=== PATIENT | male | born 1955 | race Two or more races ===

== ENCOUNTER 2019-06-17 05:19 | Inpatient (IN) | payer BC ==
--- OUTSIDE RECORDS SUMMARY | 2019-06-17 05:22 | XMS REPORT | Clinical Summary ---
:1955 Author Organization [facility] Address [address] [place] [address] Care Team Providers Name Role Phone Tesha Alonzo MD Primary Care Provider Allergies No Known Allergies Medications Medication Sig Dispensed Refills Start Date End Date Status allopurinol Take 100 mg by 0 Active (ZYLOPRIM) 100 MG mouth daily. tablet atorvastatin Take 40 mg by 0 Active (LIPITOR) 40 MG mouth daily. tablet insulin ASPART Inject under 0 Active (NovoLOG) 100 unit/mL the skin 3 injection (three) times a day before meals. Sliding scale insulin GLARGINE Inject 50 Units 0 Active (LANTUS) 100 unit/mL under the skin injection (vial) nightly. Sliding scale tamsulosin (FLOMAX) Take 0.4 mg by 0 Active 0.4 mg mouth daily. capsule,extended release 24hr omega-3 acid ethyl Take 2 g by 0 Active esters (LOVAZA) 1 mouth daily. gram capsule Bedtime gabapentin Take 100 mg by 0 Active (NEURONTIN) 100 mg mouth nightly. capsule Take 2 capsules by mouth everyday at bedtime traMADol (ULTRAM) 50 Take 50 mg by 0 Active mg tablet mouth 2 (two) times a day as needed for moderate pain. metoprolol succinate Take 25 mg by 0 Active XL (TOPROL-XL) 25 mg mouth daily. Pt 24 hr tablet takes metoprolol succinate ER 25 mg tab finasteride (PROSCAR) Take 5 mg by 0 Active 5 mg tablet mouth daily. ondansetron (ZOFRAN) Take 1 tablet 20 tablet 0 06/12/2019 07/12/20 Active 8 MG tablet (8 mg total) by 19 mouth every 8 (eight) hours as needed for nausea or vomiting for up to 30 days. prochlorperazine Take 1 tablet 30 tablet 0 06/12/2019 07/12/20 Active (COMPAZINE) 5 MG (5 mg total) by 19 tablet mouth every 6 (six) hours as needed for nausea or vomiting for up to 30 days. famotidine (PEPCID) Take 1 tablet 60 tablet 0 06/15/2019 07/15/20 Active 20 MG tablet (20 mg total) 19 by mouth 2 (two) times a day for 30 days. simethicone (MYLICON) Chew 1 tablet 30 tablet 0 06/15/2019 07/15/20 Active 80 MG chewable tablet (80 mg total) 19 every 6 (six) hours as needed for flatulence for up to 30 days. dexAMETHasone Take 1 tablet 30 tablet 0 06/16/2019 07/16/20 Active (DECADRON) 4 MG (4 mg total) by 19 tablet mouth daily for 30 days. liraglutide (VICTOZA) Inject 1.2 mg 0 06/15/20 Discontinued 0.6 mg/0.1 mL (18 under the skin 19 mg/3 mL) pen injector daily. olmesartan (BENICAR) Take 20 mg by 0 06/15/20 Discontinued 40 MG tablet mouth daily. 19 cetirizine-pseudoepHE Take 1 tablet 0 06/15/20 Discontinued Drine (ZyrTEC-D) by mouth 2 19 5-120 mg per 12 hr (two) times a tablet day. metFORMIN Take 500 mg by 0 06/15/20 Discontinued (GLUCOPHAGE) 500 mg mouth daily. 19 tablet torsemide (DEMADEX) Take 5 mg by 0 06/15/20 Discontinued 10 MG tablet mouth daily. 19 furosemide (LASIX) 20 Take 20 mg by 0 06/15/20 Discontinued mg tablet mouth 2 (two) 19 times a day. Active Problems Problem Noted Date Cholangiocarcinoma 06/10/2019 BECCA (acute kidney injury) 05/27/2019 Encounters Date Type Specialty Care Team Description 06/16/2019 Telephone Oncology Obie Herrera Cholangiocarcinoma (HCC) (Primary Dx) 06/12/2019 Orders Only Oncology Obie Herrera MD 06/11/2019 Orders Only Oncology Briseida Thacker, PharmSwapna 05/27/2019 - Hospital Encounter Oncology Shawn Kessler (HCC) ( Primary Dx); 06/15/2019 MD Franki BECCA (acute kidney injury) ([facility]) 05/27/2019 Orders Only General Internal [facility], Medicine MD Franki 01/07/2019 Hospital Encounter Radiology Craig, Cough David Ortega MD 01/07/2019 Transcribe Orders Access Craig Cough (Primary Dx) David Ortega MD 06/18/2018 Lab Lab David Srinivasan MD after 06/16/2018 Social History Tobacco Use Types Packs/Day Years Used Date Never Smoker Smokeless Tobacco: Never Used Alcohol Use Drinks/Week oz/Week Comments Never Alcohol Habits Answer Date Recorded How often do you have a drink containing alcohol? Never 05/27/2019 How many drinks containing alcohol do you have on a typical Not asked day when you are drinking? How often do you have six or more drinks on one occasion? Not asked Sex Assigned at Date Recorded Not on file Job Start Date Occupation Industry Not on file Not on file Not on file Travel History Travel Start Travel End No recent travel history available. Last Filed Vital Signs Vital Sign Reading Time Taken Blood Pressure 139/74 06/15/2019 2:29 PM CDT Pulse 68 06/15/2019 2:29 PM CDT Temperature 35.2 C (95.4 F) 06/15/2019 11:52 AM CDT Respiratory Rate 18 06/15/2019 11:52 AM CDT Oxygen Saturation 99% 06/15/2019 2:13 PM CDT Inhaled Oxygen Concentration - - Weight 82.4 kg (181 lb 11.2 oz) 06/10/2019 8:54 AM CDT Height 177.8 cm (5' 10") 06/02/2019 3:00 PM CDT Body Mass Index 26.07 06/02/2019 3:00 PM CDT Plan of Treatment Date Type Specialty Care Team Description 06/25/2019 Infusion Oncology Obie Herrera MD [address] [address] 06/25/2019 Office Visit Oncology Obie Herrera MD [address] [address] 06/26/2019 Office Visit General Surgery Nieves, April Jessica MD [address] [facility] [address] [place] [phone] 06/27/2019 Nurse Only Oncology Obie Herrera MD [address] [facility] [address] [place] [address] 07/09/2019 Infusion Oncology Obie Herrera MD [facility] [address] [facility] [address] [place] [phone] 07/11/2019 Nurse Only Oncology Obie Herrera MD [facility] [address] [facility] [address] [place] [address] 07/23/2019 Infusion Oncology Obie Herrera MD [facility] [address] [facility] [address] [place] [address] 07/25/2019 Nurse Only Oncology Obie Herrera MD [facility] [address] [facility] [address] [place] [phone] 08/06/2019 Infusion Oncology Obie Herrera MD [facility] [address] [facility] [address] [place] [address] 08/08/2019 Nurse Only Oncology Obie Herrera MD [facility] [address] [facility] [address] [place] [phone] 08/20/2019 Infusion Oncology Obie Herrera MD [facility] [address] [facility] [address] [place] [phone] 08/22/2019 Nurse Only Oncology Obie Herrera MD [facility] [place] [facility] [address] [place] [phone] Health Maintenance Due Date Last Done Comments COLONOSCOPY SCREENING 2005 SHINGLES VACCINES (#1) 2005 INFLUENZA VACCINE 06/19/2019 10/18/2018 Procedures Procedure Name Priority Date/Time Associated Diagnosis Comments POC GLUCOSE Routine 06/15/2019 12:29 Results for PM CDT this procedure are in the results section. POC GLUCOSE Routine 06/15/2019 8:00 Results for AM CDT this procedure are in the results section. ESTIMATED GFR Routine 06/15/2019 5:00 Results for AM CDT this procedure are in the results section. BASIC METABOLIC PANEL Routine 06/15/2019 5:00 Results for AM CDT this procedure are in the results section. HC COMPLETE BLD COUNT Routine 06/15/2019 5:00 Results for W/AUTO DIFF AM CDT this procedure are in the results section. POC GLUCOSE Routine 06/14/2019 9:38 Results for PM CDT this procedure are in the results section. POC GLUCOSE Routine 06/14/2019 9:08 Results for PM CDT this procedure are in the results section. POC GLUCOSE Routine 06/14/2019 6:03 Results for PM CDT this procedure are in the results section. POC GLUCOSE Routine 06/14/2019 8:16 Results for AM CDT this procedure are in the results section. ESTIMATED GFR Routine 06/14/2019 4:30 Results for AM CDT this procedure are in the results section. MAGNESIUM LEVEL Routine 06/14/2019 4:30 Results for AM CDT this procedure are in the results section. HC COMPLETE BLD COUNT Routine 06/14/2019 4:30 Results for W/AUTO DIFF AM CDT this procedure are in the results section. BASIC METABOLIC PANEL Routine 06/14/2019 4:30 Results for AM CDT this procedure are in the results section. POC GLUCOSE Routine 06/13/2019 9:52 Results for PM CDT this procedure are in the results section. POC GLUCOSE Routine 06/13/2019 5:53 Results for PM CDT this procedure are in the results section. POC GLUCOSE Routine 06/13/2019 12:19 Results for PM CDT this procedure are in the results section. POC GLUCOSE Routine 06/13/2019 8:13 Results for AM CDT this procedure are in the results section. ESTIMATED GFR Routine 06/13/2019 5:30 Results for AM CDT this procedure are in the results section. COMPREHENSIVE Routine 06/13/2019 5:30 Results for METABOLIC PANEL AM CDT this procedure are in the results section. HC COMPLETE BLD COUNT Routine 06/13/2019 5:30 Results for W/AUTO DIFF AM CDT this procedure are in the results section. POC GLUCOSE Routine 06/12/2019 9:26 Results for PM CDT this procedure are in the results section. POC GLUCOSE Routine 06/12/2019 5:11 Results for PM CDT this procedure are in the results section. POC GLUCOSE Routine 06/12/2019 12:17 Results for PM CDT this procedure are in the results section. ESTIMATED GFR Routine 06/12/2019 5:30 Results for AM CDT this procedure are in the results section. BASIC METABOLIC PANEL Routine 06/12/2019 5:30 Results for AM CDT this procedure are in the results section. HC COMPLETE BLD COUNT Routine 06/12/2019 5:30 Results for W/AUTO DIFF AM CDT this procedure are in the results section. POC GLUCOSE Routine 06/11/2019 9:01 Results for PM CDT this procedure are in the results section. URINALYSIS, AUTOMATED Routine 06/11/2019 8:41 Results for WITH MICROSCOPY PM CDT this procedure are in the results section. ESTIMATED GFR Routine 06/11/2019 5:50 Results for PM CDT this procedure are in the results section. MAGNESIUM LEVEL Routine 06/11/2019 5:50 Cholangiocarcinoma (HCC) Results for PM CDT this procedure are in the results section. COMPREHENSIVE Routine 06/11/2019 5:50 Cholangiocarcinoma (HCC) Results for METABOLIC PANEL PM CDT this procedure are in the results section. POC GLUCOSE Routine 06/11/2019 4:59 Results for PM CDT this procedure are in the results section. US ABDOMINAL Routine 06/11/2019 3:46 Results for PARACENTESIS IMAGING PM CDT this procedure are in the results section. CELL COUNT AND Routine 06/11/2019 3:18 Results for DIFFERENTIAL, BODY PM CDT this procedure FLUID are in the results section. POC GLUCOSE Routine 06/11/2019 1:36 Results for PM CDT this procedure are in the results section. POC GLUCOSE Routine 06/11/2019 8:00 Results for AM CDT this procedure are in the results section. TYPE AND SCREEN Routine 06/11/2019 4:36 Results for AM CDT this procedure are in the results section. ESTIMATED GFR Routine 06/11/2019 4:36 Results for AM CDT this procedure are in the results section. BASIC METABOLIC PANEL Routine 06/11/2019 4:36 Results for AM CDT this procedure are in the results section. HC COMPLETE BLD COUNT Routine 06/11/2019 4:36 Results for W/AUTO DIFF AM CDT this procedure are in the results section. POC GLUCOSE Routine 06/10/2019 9:03 Results for PM CDT this procedure are in the results section. POC GLUCOSE Routine 06/10/2019 5:39 Results for PM CDT this procedure are in the results section. POC GLUCOSE Routine 06/10/2019 12:41 Results for PM CDT this procedure are in the results section. POC GLUCOSE Routine 06/10/2019 8:18 Results for AM CDT this procedure are in the results section. ESTIMATED GFR Routine 06/10/2019 4:59 Results for AM CDT this procedure are in the results section. BASIC METABOLIC PANEL Routine 06/10/2019 4:59 Results for AM CDT this procedure are in the results section. HC COMPLETE BLD COUNT Routine 06/10/2019 4:59 Results for W/AUTO DIFF AM CDT this procedure are in the results section. POC GLUCOSE Routine 06/09/2019 8:55 Results for PM CDT this procedure are in the results section. POC GLUCOSE Routine 06/09/2019 6:03 Results for PM CDT this procedure are in the results section. POC GLUCOSE Routine 06/09/2019 12:26 Results for PM CDT this procedure are in the results section. POC GLUCOSE Routine 06/09/2019 8:36 Results for AM CDT this procedure are in the results section. ESTIMATED GFR Routine 06/09/2019 4:25 Results for AM CDT this procedure are in the results section. COMPREHENSIVE Routine 06/09/2019 4:25 Results for METABOLIC PANEL AM CDT this procedure are in the results section. HC COMPLETE BLD COUNT Routine 06/09/2019 4:25 Results for W/AUTO DIFF AM CDT this procedure are in the results section. POC GLUCOSE Routine 06/08/2019 8:18 Results for PM CDT this procedure are in the results section. POC GLUCOSE Routine 06/08/2019 4:39 Results for PM CDT this procedure are in the results section. URINE CULTURE Routine 06/08/2019 1:12 Results for PM CDT this procedure are in the results section. GRAM STAIN Routine 06/08/2019 1:12 Results for PM CDT this procedure are in the results section. URINALYSIS SCREEN AND Routine 06/08/2019 12:25 Results for MICROSCOPY, WITH PM CDT this procedure REFLEX TO CULTURE are in the results section. POC GLUCOSE Routine 06/08/2019 12:01 Results for PM CDT this procedure are in the results section. POC GLUCOSE Routine 06/08/2019 7:36 Results for AM CDT this procedure are in the results section. HC COMPLETE BLD COUNT Routine 06/08/2019 5:15 Results for W/AUTO DIFF AM CDT this procedure are in the results section. ESTIMATED GFR Routine 06/08/2019 4:00 Results for AM CDT this procedure are in the results section. BASIC METABOLIC PANEL Routine 06/08/2019 4:00 Results for AM CDT this procedure are in the results section. POC GLUCOSE Routine 06/07/2019 8:55 Results for PM CDT this procedure are in the results section. POC GLUCOSE Routine 06/07/2019 5:53 Results for PM CDT this procedure are in the results section. US ABDOMINAL STAT 06/07/2019 3:07 Results for PARACENTESIS IMAGING PM CDT this procedure are in the results section. POC GLUCOSE Routine 06/07/2019 12:36 Results for PM CDT this procedure are in the results section. POC GLUCOSE Routine 06/07/2019 7:40 Results for AM CDT this procedure are in the results section. ESTIMATED GFR Routine 06/07/2019 5:00 Results for AM CDT this procedure are in the results section. HC COMPLETE BLD COUNT Routine 06/07/2019 5:00 Results for W/AUTO DIFF AM CDT this procedure are in the results section. BASIC METABOLIC PANEL Routine 06/07/2019 5:00 Results for AM CDT this procedure are in the results section. POC GLUCOSE Routine 06/06/2019 10:11 Results for PM CDT this procedure are in the results section. POC GLUCOSE Routine 06/06/2019 4:58 Results for PM CDT this procedure are in the results section. POC GLUCOSE Routine 06/06/2019 11:48 Results for AM CDT this procedure are in the results section. POC GLUCOSE Routine 06/06/2019 7:59 Results for AM CDT this procedure are in the results section. ESTIMATED GFR Routine 06/06/2019 4:00 Results for AM CDT this procedure are in the results section. BASIC METABOLIC PANEL Routine 06/06/2019 4:00 Results for AM CDT this procedure are in the results section. POC GLUCOSE Routine 06/05/2019 8:57 Results for PM CDT this procedure are in the results section. POC GLUCOSE Routine 06/05/2019 3:57 Results for PM CDT this procedure are in the results section. POC GLUCOSE Routine 06/05/2019 1:27 Results for PM CDT this procedure are in the results section. ESTIMATED GFR Routine 06/05/2019 11:26 Results for AM CDT this procedure are in the results section. BASIC METABOLIC PANEL Routine 06/05/2019 11:26 Results for AM CDT this procedure are in the results section. POC GLUCOSE Routine 06/05/2019 7:07 Results for AM CDT this procedure are in the results section. POC GLUCOSE Routine 06/04/2019 9:02 Results for PM CDT this procedure are in the results section. POC GLUCOSE Routine 06/04/2019 4:35 Results for PM CDT this procedure are in the results section. POC GLUCOSE Routine 06/04/2019 12:18 Results for PM CDT this procedure are in the results section. POC GLUCOSE Routine 06/04/2019 7:20 Results for AM CDT this procedure are in the results section. HC COMPLETE BLD COUNT Routine 06/04/2019 4:50 Results for W/AUTO DIFF AM CDT this procedure are in the results section. ESTIMATED GFR Routine 06/04/2019 4:42 Results for AM CDT this procedure are in the results section. BASIC METABOLIC PANEL Routine 06/04/2019 4:42 Results for AM CDT this procedure are in the results section. POC GLUCOSE Routine 06/03/2019 11:10 Results for PM CDT this procedure are in the results section. POC GLUCOSE Routine 06/03/2019 10:07 Results for PM CDT this procedure are in the results section. POC GLUCOSE Routine 06/03/2019 4:32 Results for PM CDT this procedure are in the results section. POC GLUCOSE Routine 06/03/2019 11:33 Results for AM CDT this procedure are in the results section. POC GLUCOSE Routine 06/03/2019 8:46 Results for AM CDT this procedure are in the results section. CBC WITH PLATELET AND Routine 06/03/2019 4:35 Results for DIFFERENTIAL AM CDT this procedure are in the results section. ESTIMATED GFR Routine 06/03/2019 4:00 Results for AM CDT this procedure are in the results section. BASIC METABOLIC PANEL Routine 06/03/2019 4:00 Results for AM CDT this procedure are in the results section. POC GLUCOSE Routine 06/02/2019 8:09 Results for PM CDT this procedure are in the results section. POC GLUCOSE Routine 06/02/2019 4:55 Results for PM CDT this procedure are in the results section. POC GLUCOSE Routine 06/02/2019 12:36 Results for PM CDT this procedure are in the results section. US ABDOMINAL Routine 06/02/2019 12:32 Results for PARACENTESIS IMAGING PM CDT this procedure are in the results section. POC GLUCOSE Routine 06/02/2019 10:35 Results for AM CDT this procedure are in the results section. POC GLUCOSE Routine 06/02/2019 8:02 Results for AM CDT this procedure are in the results section. HC COMPLETE BLD COUNT Routine 06/02/2019 6:00 Results for W/AUTO DIFF AM CDT this procedure are in the results section. ESTIMATED GFR Routine 06/02/2019 4:00 Results for AM CDT this procedure are in the results section. BASIC METABOLIC PANEL Routine 06/02/2019 4:00 Results for AM CDT this procedure are in the results section. POC GLUCOSE Routine 06/01/2019 10:05 Results for PM CDT this procedure are in the results section. POC GLUCOSE Routine 06/01/2019 5:32 Results for PM CDT this procedure are in the results section. NM LUNG VENTILATION Routine 06/01/2019 3:47 Results for PERFUSION PM CDT this procedure are in the results section. POC GLUCOSE Routine 06/01/2019 11:02 Results for AM CDT this procedure are in the results section. POC GLUCOSE Routine 06/01/2019 7:24 Results for AM CDT this procedure are in the results section. HC COMPLETE BLD COUNT Routine 06/01/2019 4:15 Results for W/AUTO DIFF AM CDT this procedure are in the results section. ESTIMATED GFR Routine 06/01/2019 4:00 Results for AM CDT this procedure are in the results section. BASIC METABOLIC PANEL Routine 06/01/2019 4:00 Results for AM CDT this procedure are in the results section. POC GLUCOSE Routine 05/31/2019 8:38 Results for PM CDT this procedure are in the results section. POC GLUCOSE Routine 05/31/2019 5:28 Results for PM CDT this procedure are in the results section. POC GLUCOSE Routine 05/31/2019 1:29 Results for PM CDT this procedure are in the results section. US DUPLEX VENOUS Routine 05/31/2019 12:15 Results for LOWER EXTREMITY PM CDT this procedure BILATERAL are in the results section. POC GLUCOSE Routine 05/31/2019 7:58 Results for AM CDT this procedure are in the results section. HC COMPLETE BLD COUNT Routine 05/31/2019 5:10 Results for W/AUTO DIFF AM CDT this procedure are in the results section. ESTIMATED GFR Routine 05/31/2019 4:00 Results for AM CDT this procedure are in the results section. COMPREHENSIVE Routine 05/31/2019 4:00 Results for METABOLIC PANEL AM CDT this procedure are in the results section. POC GLUCOSE Routine 05/30/2019 8:40 Results for PM CDT this procedure are in the results section. LACTIC ACID LEVEL, Timed 05/30/2019 4:54 Results for SEPSIS - NOW AND PM CDT this procedure REPEAT 2X EVERY 3 are in the HOURS results section. POC GLUCOSE Routine 05/30/2019 4:49 Results for PM CDT this procedure are in the results section. LACTIC ACID LEVEL, Timed 05/30/2019 1:54 Results for SEPSIS - NOW AND PM CDT this procedure REPEAT 2X EVERY 3 are in the HOURS results section. POC GLUCOSE Routine 05/30/2019 12:17 Results for PM CDT this procedure are in the results section. ECHOCARDIOGRAM 2D STAT 05/30/2019 11:45 Results for COMPLETE W MMODE AM CDT this procedure SPECTRAL COLOR are in the DOPPLER ([id number]) results section. LACTIC ACID LEVEL, Timed 05/30/2019 11:40 Results for SEPSIS - NOW AND AM CDT this procedure REPEAT 2X EVERY 3 are in the HOURS results section. XR CHEST 1 VW STAT 05/30/2019 9:10 Results for PORTABLE AM CDT this procedure are in the results section. PROTHROMBIN TIME WITH STAT 05/30/2019 8:20 Results for INR AM CDT this procedure are in the results section. LACTIC ACID LEVEL STAT 05/30/2019 8:20 Results for AM CDT this procedure are in the results section. TROPONIN STAT 05/30/2019 8:20 Results for AM CDT this procedure are in the results section. ESTIMATED GFR STAT 05/30/2019 8:20 Results for AM CDT this procedure are in the results section. HC COMPLETE BLD COUNT STAT 05/30/2019 8:20 Results for W/AUTO DIFF AM CDT this procedure are in the results section. MAGNESIUM LEVEL STAT 05/30/2019 8:20 Results for AM CDT this procedure are in the results section. BASIC METABOLIC PANEL STAT 05/30/2019 8:20 Results for AM CDT this procedure are in the results section. ECG 12-LEAD STAT 05/30/2019 8:14 Results for AM CDT this procedure are in the results section. POC GLUCOSE Routine 05/30/2019 7:58 Results for AM CDT this procedure are in the results section. ESTIMATED GFR Routine 05/30/2019 4:30 Results for AM CDT this procedure are in the results section. BASIC METABOLIC PANEL Routine 05/30/2019 4:30 Results for AM CDT this procedure are in the results section. HC COMPLETE BLD COUNT Routine 05/30/2019 4:30 Results for W/AUTO DIFF AM CDT this procedure are in the results section. POC GLUCOSE Routine 05/29/2019 9:18 Results for PM CDT this procedure are in the results section. POC GLUCOSE Routine 05/29/2019 5:09 Results for PM CDT this procedure are in the results section. POC GLUCOSE Routine 05/29/2019 12:24 Results for PM CDT this procedure are in the results section. ESTIMATED GFR Routine 05/29/2019 11:13 Results for AM CDT this procedure are in the results section. BASIC METABOLIC PANEL Routine 05/29/2019 11:13 Results for AM CDT this procedure are in the results section. HC COMPLETE BLD COUNT Routine 05/29/2019 11:00 Results for W/AUTO DIFF AM CDT this procedure are in the results section. POC GLUCOSE Routine 05/29/2019 9:19 Results for AM CDT this procedure are in the results section. POC GLUCOSE Routine 05/28/2019 9:50 Results for PM CDT this procedure are in the results section. POC GLUCOSE Routine 05/28/2019 4:22 Results for PM CDT this procedure are in the results section. US ABDOMINAL Routine 05/28/2019 3:00 Results for PARACENTESIS IMAGING PM CDT this procedure are in the results section. POC GLUCOSE Routine 05/28/2019 11:54 Results for AM CDT this procedure are in the results section. SEDIMENTATION RATE Routine 05/28/2019 10:55 Results for AM CDT this procedure are in the results section. SODIUM LEVEL, URINE, Routine 05/28/2019 9:54 Results for RANDOM AM CDT this procedure are in the results section. CREATININE LEVEL, Routine 05/28/2019 9:54 Results for URINE, RANDOM AM CDT this procedure are in the results section. URINALYSIS SCREEN AND Routine 05/28/2019 9:54 Results for MICROSCOPY, WITH AM CDT this procedure REFLEX TO CULTURE are in the results section. URINE CULTURE Routine 05/28/2019 9:54 Results for AM CDT this procedure are in the results section. US RENAL STAT 05/28/2019 9:11 Results for AM CDT this procedure are in the results section. POC GLUCOSE Routine 05/28/2019 8:23 Results for AM CDT this procedure are in the results section. POC GLUCOSE Routine 05/28/2019 12:08 Results for AM CDT this procedure are in the results section. BLOOD CULTURE, Routine 05/27/2019 11:55 Results for AEROBIC & ANAEROBIC PM CDT this procedure are in the results section. PROTHROMBIN TIME WITH Routine 05/27/2019 11:25 Results for INR PM CDT this procedure are in the results section. HEMOGLOBIN A1C Routine 05/27/2019 11:25 Results for PM CDT this procedure are in the results section. HC COMPLETE BLD COUNT Routine 05/27/2019 11:25 Results for W/AUTO DIFF PM CDT this procedure are in the results section. B NATRIURETIC PEPTIDE Routine 05/27/2019 11:25 Results for PM CDT this procedure are in the results section. BLOOD CULTURE, Routine 05/27/2019 11:25 Results for AEROBIC & ANAEROBIC PM CDT this procedure are in the results section. ESTIMATED GFR Routine 05/27/2019 9:50 Results for PM CDT this procedure are in the results section. BILIRUBIN DIRECT Routine 05/27/2019 9:50 Results for PM CDT this procedure are in the results section. URIC ACID LEVEL Routine 05/27/2019 9:50 Results for PM CDT this procedure are in the results section. THYROID STIMULATING Routine 05/27/2019 9:50 Results for HORMONE PM CDT this procedure are in the results section. T4, FREE Routine 05/27/2019 9:50 Results for PM CDT this procedure are in the results section. PREALBUMIN LEVEL Routine 05/27/2019 9:50 Results for PM CDT this procedure are in the results section. MAGNESIUM LEVEL Routine 05/27/2019 9:50 Results for PM CDT this procedure are in the results section. LIPASE LEVEL Routine 05/27/2019 9:50 Results for PM CDT this procedure are in the results section. LACTIC ACID LEVEL Routine 05/27/2019 9:50 Results for PM CDT this procedure are in the results section. CREATINE KINASE, Routine 05/27/2019 9:50 Results for TOTAL (CPK) PM CDT this procedure are in the results section. COMPREHENSIVE Routine 05/27/2019 9:50 Results for METABOLIC PANEL PM CDT this procedure are in the results section. 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 after 06/16/2018 Results POC glucose (06/15/2019 12:29 PM CDT)Only the most recent of76 resultswithin the time period is included. [facility] POC glucose 184 (H) 65 - 99 mg/dL [facility] Comment: [facility]PITAL [facility] Notified RN Meter ID: [id number] Prefitter Doors: Brooks Ryann Specimen Performing Organization Address [facility] Hospitalcode Phone Number [facility] DEPARTMENT OF PATHOLOGY AND [address] [place] [address] Estimated GFR (06/15/2019 5:00 AM CDT)Only the most recent of21 resultswithin the time period is included. [facility] Estimated GFR 48 (A) mL/min/1.73 [facility] Comment: [address] CatergoryUnitsInterpretation G1 >=90 Normal or high G2 60-89Mildly decreased [id number] to moderately decreased [id number] to severely decreased G4 15-29Severely decreased G5 <15Kidney failure The eGFR was calculated using the Chronic Kidney Disease Epidemiology Collaboration (CKD-EPI) equation. Interpretation is based on recommendations of the National Kidney Foundation-Kidney Disease Outcomes Quality Initiative (NKF-KDOQI) published in 2014. Specimen Plasma specimen Performing Organization Address City/[facility]/Zipcode Phone Number [facility] DEPARTMENT OF PATHOLOGY AND [address] [place] [phone] [place] [phone] CBC with platelet and differential (06/15/2019 5:00 AM CDT)Only the most recent of18 resultswithin the time period is included. [facility] WBC 14.51 (H) 4.50 - 11.00 [facility] k/uL [facility] RBC 4.68 4.40 - 6.00 [facility] m/uL [facility] HGB 12.5 (L) 14.0 - 18.0 [facility] g/dL HOSPITAL HCT 39.2 (L) 41.0 - 51.0 % [facility] MCV 83.8 82.0 - 100.0 [facility] MCH 26.7 (L) 27.0 - 34.0 pg [facility] MCHC 31.9 31.0 - 37.0 [facility] g/dL [facility] RDW - SD 50.5 37.0 - 55.0 fL [facility] MPV 9.7 8.8 - 13.2 fL [facility] Platelet count 521 (H) 150 - 400 k/uL [facility] Nucleated RBC 0.00 /100 WBC [facility] Neutrophils 96.9 (H) 39.0 - 69.0 % [facility] Lymphocytes 2.0 (L) 25.0 - 45.0 % [facility] Monocytes 0.7 0.0 - 10.0 % [facility] Eosinophils 0.0 0.0 - 5.0 % [facility] Basophils 0.1 0.0 - 1.0 % [facility] Immature granulocytes 0.3Comment: 0.0 - 1.0 % [facility] "[facility] granulocytes" (promyelocytes , myelocytes, metamyelocytes ) Specimen Blood Performing Organization Address City/[facility]/Zipcode Phone Number [facility] DEPARTMENT OF PATHOLOGY AND [address] [place] [address] GENOM[facility] MEDICINE [address] [address] Basic metabolic panel (06/15/2019 5:00 AM CDT)Only the most recent of16 resultswithin the time period is included. Sodium 134 (L) 135 - 148 mEq/L [facility] Potassium 5.0 3.5 - 5.0 mEq/L [facility] Chloride 100 98 - 112 mEq/L [facility] CO2 21 (L) 24 - 31 mEq/L [facility] Anion gap 13@ANIO 7 - 15 mEq/L [facility] BUN 52 (H) 8 - 23 mg/dL [facility] Creatinine 1.51 (H) 0.70 - 1.20 mg/dL [facility] Glucose 159 (H) 65 - 99 mg/dL [facility] Calcium 7.9 (L) 8.8 - 10.2 mg/dL [facility] Specimen Plasma specimen Performing Organization Address City/State/[facility] Hospitalcode Phone Number [facility] DEPARTMENT OF PATHOLOGY AND [address] [place] [address] [facility] [address] [place] [address] Magnesium level (06/14/2019 4:30 AM CDT)Only the most recent of4 resultswithin the time period is included. Magnesium 3.1 (H) 1.6 - 2.4 mg/dL [facility] Specimen Plasma specimen Performing Organization Address City/[facility]/Zipcode Phone Number [facility] DEPARTMENT OF PATHOLOGY AND [address] [place] [address] [facility] [address] [place] [phone] Comprehensive metabolic panel (06/13/2019 5:30 AM CDT)Only the most recent of5 resultswithin the time period is included. Sodium 135 135 - 148 [facility] mEq/L [facility] Potassium 4.5 3.5 - 5.0 [facility] mEq/L [facility] Chloride 97 (L) 98 - 112 mEq/L [facility] CO2 26 24 - 31 mEq/L [facility] Anion gap 12@ANIO 7 - 15 mEq/L [facility] BUN 57 (H) 8 - 23 mg/dL [facility] Creatinine 1.52 (H) 0.70 - 1.20 [facility] mg/dL [facility] Glucose 180 (H) 65 - 99 mg/dL [facility] Calcium 8.1 (L) 8.8 - 10.2 [facility] mg/dL [facility] Protein 5.7 (L) 6.3 - 8.3 g/dL [facility] Comment: HOSPITAL 4.6-7.0 g/dL 1 week 4.4-7.6 g/dL 7 months-1year5.1-7.3 g/dL 1-2 years5.6-7.5 g/dL >3 years6.0-8.0 g/dL 18-150 6.3-8.3 g/dL Albumin 2.8 (L) 3.5 - 5.0 g/dL [facility] A/G ratio 1.0 0.7 - 3.8 [facility] Alkaline phosphatase 143 (H) 40 - 129 U/L [facility] AST 35 10 - 50 U/L [facility] ALT 37 5 - 50 U/L [facility] Total bilirubin 0.4 0.0 - 1.2 [facility] mg/dL HOSPITAL Specimen Plasma specimen Performing Organization Address City/[facility]code Phone Number [facility] DEPARTMENT OF PATHOLOGY AND [address] [place] [address] Urinalysis, automated with microscopy (06/11/2019 8:41 PM CDT) Color, UA Red [facility] Appearance, UA Cloudy [facility] Specific gravity, UA 1.017 1.001 - 1.035 [facility] pH, UA 5.0 5.0 - 8.5 [facility] Protein, UA Negative Negative [facility] Glucose, UA Negative Negative [facility] Ketones, UA Negative Negative [facility] Bilirubin, UA Negative Negative [facility] Blood, UA Large (A) Negative [facility] Nitrite, UA Negative Negative [facility] Urobilinogen, UA <2.0 <2.0 [facility] Leukocyte esterase, Large (A) Negative [facility] WBC, UA 45 (H) 0 - 1 /HPF [facility] RBC, UA 19 (H) 0 - 5 /HPF [facility] Bacteria, UA Few None seen [facility] WBC clumps, UA Few (A) [facility] Yeast, UA None seen [facility] Yeast with None seen [facility] pseudohyphae, HOSPITAL Specimen Urine Performing Organization Address City/[facility]code Phone Number [facility] DEPARTMENT OF PATHOLOGY AND [address] [place] [address] US Abdominal Paracentesis Imaging (06/11/2019 3:46 PM CDT)Only the most recent of4 resultswithin the time period is included. Specimen Narrative Performed At [facility] Performing Radiologist: Aleshia Rodriguez PA-C Assistants: None Pre Procedure Diagnosis: ASCITES Post Procedure Diagnosis: ASCITES Indication: Ascites Complications: No immediate post procedure complications. IMPRESSION: 1.Technically successful ultrasound-guided diagnostic/therapeutic paracentesis. 2.There is a moderate simple ascites. 3.No residual ascites is seen on postprocedure ultrasound. PLAN: The patient will be monitored in the recovery area for approximately 30 minutes to evaluate vital signs and blood pressure. PROCEDURE SUMMARY: Access of the peritoneal space using ultrasound guidance PROCEDURE DETAILS: Pre-procedure: Comparison studies: None Written and informed consent for the procedure and monitored conscious sedation was obtained from the patient. Prophylactic antibiotics: None Preparation: The left lower quadrant of the abdomen was prepared and draped using all elements of maximal sterile barrier technique including sterile gloves, sterile gown, catheter, mask, large sterile sheet, sterile ultrasound probe cover, hand hygiene and cutaneous antisepsis using chlorhexidine. Anesthesia/Sedation: Level of anesthesia: None (Lidocaine only) Medications used: 1% lidocaine Duration of anesthesia/sedation: N/A Access: Local anesthesia was administered. The left lower quadrantwas evaluated with preprocedure ultrasound. Real-time ultrasound was used to visualize needle entry into the peritoneal space. Access technique: One-step Catheter Paracentesis: Fluid Color: Yellow Volume Removed: 3800 mL Fluid Analysis: The fluid was sent for laboratory tests ordered by the primary team Closure: The One-step catheter was removed and hemostasis was achieved with manual compression. A sterile dressing was applied. Additional details: Estimated blood loss: Less than 10 cc [facility]-[id number] Procedure Note [facility], Radiology Results Incoming - 06/12/2019 2:54 PM CDT PROCEDURE: Ultrasound-guided paracentesis Performing Radiologist: Aleshia Rodriguez PA-C Assistants: None Pre Procedure Diagnosis: ASCITES Post Procedure Diagnosis: ASCITES Indication: Ascites Complications: No immediate post procedure complications. IMPRESSION: 1. Technically successful ultrasound-guided diagnostic/therapeutic paracentesis. 2. There is a moderate simple ascites. 3. No residual ascites is seen on postprocedure ultrasound. PLAN: The patient will be monitored in the recovery area for approximately 30 minutes to evaluate vital signs and blood pressure. PROCEDURE SUMMARY: Access of the peritoneal space using ultrasound guidance PROCEDURE DETAILS: Pre-procedure: Comparison studies: None Written and informed consent for the procedure and monitored conscious sedation was obtained from the patient. Prophylactic antibiotics: None Preparation: The left lower quadrant of the abdomen was prepared and draped using all elements of maximal sterile barrier technique including sterile gloves , sterile gown, catheter, mask, large sterile sheet, sterile ultrasound probe cover, hand hygiene and cutaneous antisepsis using chlorhexidine. Anesthesia/Sedation: Level of anesthesia: None (Lidocaine only) Medications used: 1% lidocaine Duration of anesthesia/sedation: N/A Access: Local anesthesia was administered. The left lower quadrant was evaluated with preprocedure ultrasound. Real-time ultrasound was used to visualize needle entry into the peritoneal space. Access technique: One-step Catheter Paracentesis: Fluid Color: Yellow Volume Removed: 3800 mL Fluid Analysis: The fluid was sent for laboratory tests ordered by the primary team Closure: The One-step catheter was removed and hemostasis was achieved with manual compression. A sterile dressing was applied. Additional details: Estimated blood loss: Less than 10 cc [facility]-[id number] [facility] Organization Address City/State/[facility] Hospitalcoct Phone Number [facility] [address] [place] [address] Cell count and differential, body fluid (06/11/2019 3:18 PM CDT) Misc fluid type Ascitic [facility] Color, fluid Yellow [facility] Appearance, fluid Clear [facility] RBC, fluid SEE /CMM [facility] COMMENTComment: HOSPITAL 2+ (500 - 10,000 RBC/CMM) Nucleated cells, 303 /CMM [facility] Fluid mononuclear See Diff [facility] Lymphocytes, fluid 51 % [facility] Mesothelial cells, 27 % [facility] Macrophages, fluid 22 % [facility] Specimen Fluid Performing Organization Address [facility] Hospitalcode Phone Number [facility] DEPARTMENT OF PATHOLOGY AND [address] [place] [phone] Type and screen (06/11/2019 4:36 AM CDT) Pathologist [facility] ABO grouping AB [facility] Rh type POS [facility] Antibody screen (gel) NEG [facility] Specimen Blood Performing Organization Address [facility] [place] Phone Number [facility] DEPARTMENT OF PATHOLOGY AND [address] [place] [phone] Gram stain (06/08/2019 1:12 PM CDT) Pathologist [facility] Gram stain result Rare WBC's [facility] Gram positive rods HOSPITAL Comment: Specimen Information Specimen Source: Urine Specimen Site: Lao Specimen Urine - Lao Performing Organization Address City/[facility] Hospitalcoct Phone Number [facility] DEPARTMENT OF PATHOLOGY AND [address] [place] [address] Urine culture (06/08/2019 1:12 PM CDT)Only the most recent of2 resultswithin the time period is included. Urine culture Mixed talat <=10-3 col/cc [facility] Comment: HOSPITAL Specimen Information Specimen Source: Urine Specimen Site: Lao Specimen Urine - Lao Performing Organization Address City/[facility]/Zipcode Phone Number [facility] DEPARTMENT OF PATHOLOGY AND [address] [address] Urinalysis screen and microscopy, with reflex to culture (06/08/2019 12:25 PM CDT)Only the most recent of2 resultswithin the time period is included. Specimen site Lao [facility] Color, UA Mary Ann [facility] Appearance, UA Cloudy [facility] Specific gravity, 1.017 1.001 - 1.035 [facility] pH, UA 5.0 5.0 - 8.5 [facility] Protein, UA Negative Negative [facility] Glucose, UA Negative Negative [facility] Ketones, UA Trace (A) Negative [facility] Bilirubin, UA Negative Negative [facility] Blood, UA Large (A) Negative [facility] Nitrite, UA Negative Negative [facility] Urobilinogen, UA <2.0 <2.0 [facility] Leukocyte esterase, Large (A) Negative [facility] WBC, UA 79 (H) 0 - 1 /HPF [facility] RBC, UA 70 (H) 0 - 5 /HPF [facility] Bacteria, UA Moderate (A) None seen [facility] WBC clumps, UA Few (A) [facility] Yeast, UA None seen [facility] Yeast with None seen [facility] pseudohyphae, [facility] Granular casts, UA 2 (H) 0 - 1 /LPF [facility] Hyaline casts, UA >20 (A) /LPF [facility] Specimen Urine Performing Organization Address City/State/Zipcode Phone Number [facility] DEPARTMENT OF PATHOLOGY AND [address] [place] [address] [place] Lung Ventilation Perfusion (06/01/2019 3:47 PM CDT) Specimen Narrative Performed At PROCEDURE: NM LUNG VENTILATION PERFUSION [facility] INDICATION: PE suspectedhigh pretest prob COMPARISON: Chest radiograph 05/30/2019 TECHNIQUE: Ventilation images were acquired after inhalation of 10-20 mCi of Xe-133 gas. Perfusion imaging in multiple projections was performed after intravenous administration of 5 mCi of Tc-99m labeled MAA. FINDINGS: Ventilation and perfusion are slightly heterogeneous bilaterally. No suspicious segmental defects are seen. Gas washout is prompt in both lungs. IMPRESSION: Very low probability of acute pulmonary embolism. [facility] Procedure Note Interface, Radiology Results Incoming - 06/01/2019 4:40 PM CDT PROCEDURE: NM LUNG VENTILATION PERFUSION INDICATION: PE suspected high pretest prob COMPARISON: Chest radiograph 05/30/2019 TECHNIQUE: Ventilation images were acquired after inhalation of 10-20 mCi of Xe -133 gas. Perfusion imaging in multiple projections was performed after intravenous administration of 5 mCi of Tc-99m labeled MAA. FINDINGS: Ventilation and perfusion are slightly heterogeneous bilaterally. No suspicious segmental defects are seen. Gas washout is prompt in both lungs. IMPRESSION: Very low probability of acute pulmonary embolism. [facility] Performing Organization Address City/State/Zipcode Phone Number [facility] [address] [place] [address] Us duplex venous lower extremity (05/31/2019 12:15 PM CDT) Specimen Narrative Performed At [facility] Lower Extremity Venous Report [address] [place] [address] Pat.Name:CLARICE MEJIA.ID:[id number] .Date: 05/31/2019 Refer.MD:FRANKI KESSLER MD Exam Time: 11:12:00 AM Study Type:LE Venous DOBAge:1955,64Y Sex: MALE Sonogrphr: Amos Monte RN, RVTPat. Stat.:Inpatient [address] PREETHI, CPT - 4: 15587 Echo Event ID:[id number] Order ID:[id number] Reason for Study:History of Liver cancer. Sirs. Procedures:Colorflow, Grayscale/2D, Pulsed wave Doppler Race: SUMMARY: DUPLEX SCAN OBSERVATIONS Deep VeinsSuperficial Veins RightLeft RightLeft GSV (prox) NormalNormal CFV Normal Normal (above knee) Femoral Normal Normal GSV (dist) Normal Normal Profunda Normal Normal (below knee) Popliteal Normal Normal PT (prox) Normal NormalSSV Normal Normal PT (dist) Normal Normal Peroneal Normal Normal RIGHT:There is normal compressibility with no evidence of echogenic material noted within the lumen of the visualized veins.There is normal compressibility with no evidence of echogenic material noted within the lumen of the visualized veins. LEFT:There is normal compressibility with no evidence of echogenic material noted within the lumen of the visualized veins.Colorflow and Doppler signals are normal. PRELIMINARY FINDINGS 1.Normal venous duplex scan of the lower extremities. PHYSICIAN INTERPRETATION Venous examination of the both lower extremities demonstrated no evidence of venous thrombosis in the visualized veins.Normal compressibility and augmentation of all veins visualized. Signed 05/31/2019 02:39 PM Neo Browne MD, RPVI Procedure Note Interface, Radiology Results In - 05/31/2019 2:39 PM CDT [facility] Lower Extremity Venous Report [address] [place] [address] Pat.Name: CLARICE MEJIA.ID: [id number] St.Date: 05/31/2019 Refer.MD: FRANKI KESSLER MD Exam Time: 11:12:00 AM Study Type:LE Venous Age: 3 1955,64Y Sex: MALE Sonogrphr: Amos Monte RN, RVT Pat. Stat.:Inpatient Room: [facility] Tape Vol: DP, CPT - 4: 72073 Echo Event ID:[id number] Order ID: [id number] Reason for Study:History of Liver cancer. Sirs. Procedures:Colorflow, Grayscale/2D, Pulsed wave Doppler Race: SUMMARY: DUPLEX SCAN OBSERVATIONS Deep Veins Superficial Veins Right Left Right Left GSV (prox) Normal Normal CFV Normal Normal (above knee) Femoral Normal Normal GSV (dist) Normal Normal Profunda Normal Normal (below knee) Popliteal Normal Normal PT (prox) Normal Normal SSV Normal Normal PT (dist) Normal Normal Peroneal Normal Normal RIGHT: There is normal compressibility with no evidence of echogenic material noted within the lumen of the visualized veins. There is normal compressibility with no evidence of echogenic material noted within the lumen of the visualized veins. LEFT: There is normal compressibility with no evidence of echogenic material noted within the lumen of the visualized veins. Colorflow and Doppler signals are normal. PRELIMINARY FINDINGS 1. Normal venous duplex scan of the lower extremities. PHYSICIAN INTERPRETATION Venous examination of the both lower extremities demonstrated no evidence of venous thrombosis in the visualized veins. Normal compressibility and augmentation of all veins visualized. Signed 05/31/2019 02:39 PM Neo Browne MD, RPVI Performing Organization Address [facility] Hospitalcode Phone Number [facility] [address] [place] [address] Lactic acid level, SEPSIS - Now and repeat 2x every 3 hours (05/30/2019 4:54 PM CDT)Only the most recent of3 resultswithin the time period is included. Lactic acid 3.1 (H) 0.5 - 2.2 mmol/L [facility] Specimen Blood Performing Organization Address [facility] Hospital[facility]ct Phone Number [facility] DEPARTMENT OF PATHOLOGY AND [address] [place] [address] GENOMIC MEDICINE [address] [address] Echocardiogram complete w contrast and 3D if needed (05/30/2019 11:45 AM CDT) Specimen Narrative Performed At [facility] Echocardiography Report [address] [place] [address] Pat.Name:CLARICE MEJIA Pat.ID:[id number] St.Date: 05/30/2019 Refer.MD:KEENA OZUNA MD Exam Time: 11:25:00 AM Study Type:Routine Echo Height:70inWeight: 201lb BSA: 2.09 m2 DOBAge:1955,64Y Sex: MALEBP:108/60 HR:118 bpm Sonogrphr: Ashleigh Tony RDCS Pat. Stat.:Inpatient Room:[address] Study Status:Final Echo Event ID:[id number] Order ID:[id number] Reason for Study:Hypotension or Hemodynamic Instability - Assessment of volume status in a critically ill patient History / Clinical:Cancer, Diabetes, Hypertension Procedures:2D Echo, Colorflow Doppler, Portable, Stat Race:O SUMMARY: LV EF is normal. Overall wall motion is normal. Estimated EF is 60-64%. RV systolic function is normal. Insufficient TR jet to estimate PA systolic pressure. FINDINGS: LV: LV size is normal. LV EF is normal. Overall wall motion is normal.Estimated EF is 60-64%. RV: RV size is normal. RV systolic function is normal. LA: LA size is normal. RA: RA size is normal. AO: Aortic root diameter is normal. LAUREN: No pericardial effusion. AV: No structural AV abnormalities noted. MV: No structural MV abnormalities noted. PV: No structural PV abnormalities noted. TV: No structural TV abnormalities noted. Lockett: LV relaxation is impaired. Other:Insufficient TR jet to estimate PA systolic pressure. MEASUREMENTS: 2D Parasternal [place] Ds3 cmLVPWd1 cm LVOT 2.3 cmAo An2.3 cm LVIDd4.1 cmIndex2 cm/m Ao Rtd 3.7 cm Index1.8 cm/m LVIDs2.8 cm LV Lmom260.7 g(122-174) LV%fs 31.9 % LVM Index 59.6 g/m2 IVSd 0.9 cmRWT0.5 LA Sng Plane LA Area 20 cm2(8.8-23.4) LA Vol57.7 ml Index27.6 ml/m LA LngAx 5.7 cm RA Sng Plane RA Area 12.8 cm2(8.3-19.5) RA Vol27.9 ml Index13.4 ml/m RA LngAx 5.3 cm DOPPLER LVOT Stroke Vol LVOT 2.3 cmLVOT CO0.2 l/min LVOT TVI19.8 cmLVOT CI0.1 l/m/m2 LVOT Tm251 msecHR 2.3 bpm LVOT SV 82.4 ml Signed 05/30/2019 03:33 PM Paulino Dumont M.D. Procedure Note Interface, Radiology Results In - 05/30/2019 3:34 PM CDT Echocardiography Report [address] [place] [address] Pat.Name: CLARICE MEJIA Pat.ID: [id number] St.Date: 05/30/2019 Refer.MD: KEENA OZUNA MD Exam Time: 11:25:00 AM Study Type:Routine Echo Height: 70in Weight: 201lb BSA: 2.09 m2 Age: 3 1955,64Y Sex: MALE BP: 108/60 HR: 118 bpm Sonogrphr: Ashleigh Tony RDCS Pat. Stat.:Inpatient Room: [address] Study Status:Final Echo Event ID:[id number] Order ID: [id number] Reason for Study:Hypotension or Hemodynamic Instability - Assessment of volume status in a critically ill patient History / Clinical:Cancer, Diabetes, Hypertension Procedures:2D Echo, Colorflow Doppler, Portable, Stat Race: O SUMMARY: LV EF is normal. Overall wall motion is normal. Estimated EF is 60-64%. RV systolic function is normal. Insufficient TR jet to estimate PA systolic pressure. FINDINGS: LV: LV size is normal. LV EF is normal. Overall wall motion is normal. Estimated EF is 60-64%. RV: RV size is normal. RV systolic function is normal. LA: LA size is normal. RA: RA size is normal. AO: Aortic root diameter is normal. LAUREN: No pericardial effusion. AV: No structural AV abnormalities noted. MV: No structural MV abnormalities noted. PV: No structural PV abnormalities noted. TV: No structural TV abnormalities noted. [place]: LV relaxation is impaired. Other: Insufficient TR jet to estimate PA systolic pressure. MEASUREMENTS: 2D Parasternal [place] LA Ds 3 cm LVPWd 1 cm LVOT 2.3 cm Ao An 2.3 cm LVIDd 4.1 cm Index 2 cm/m Ao Rtd 3.7 cm Index 1.8 cm/m LVIDs 2.8 cm LV Mass 124.7 g (122-174) LV%fs 31.9 % LVM Index 59.6 g/m2 IVSd 0.9 cm RWT 0.5 LA Sng Plane LA Area 20 cm2 (8.8-23.4) LA Vol 57.7 ml Index 27.6 ml/m LA LngAx 5.7 cm RA Sng Plane RA Area 12.8 cm2 (8.3-19.5) RA Vol 27.9 ml Index 13.4 ml/m RA LngAx 5.3 cm DOPPLER LVOT Stroke Vol LVOT 2.3 cm LVOT CO 0.2 l/min LVOT TVI 19.8 cm LVOT CI 0.1 l/m/m2 LVOT Tm 251 msec HR 2.3 bpm LVOT SV 82.4 ml Signed 05/30/2019 03:33 PM Paulino Dumont M.D. Performing Organization Address City/State/Zipcode Phone Number [facility] [address] [place] [address] XR Chest 1 Vw Portable (05/30/2019 9:10 AM CDT) Specimen Narrative Performed At EXAMINATION:XR CHEST 1 VW PORTABLE [facility] CLINICAL HISTORY:Hypotension COMPARISON:January 07 IMPRESSION: 1. Portacatheter is stable. 2. There has been interval development of mild bibasilar atelectasis. No confluent infiltrate or effusion is demonstrated. 3. Vasculature is within normal limits. [facility]-[id number] Procedure Note Hm Interface, Radiology Results Incoming - 05/30/2019 9:19 AM CDT EXAMINATION: XR CHEST 1 VW PORTABLE CLINICAL HISTORY: Hypotension COMPARISON: January 07 IMPRESSION: 1. Portacatheter is stable. 2. There has been interval development of mild bibasilar atelectasis. No confluent infiltrate or effusion is demonstrated. 3. Vasculature is within normal limits. [facility]-[id number] Performing Organization Address City/[facility] Phone Number [facility] [address] [place] [phone] Troponin (05/30/2019 8:20 AM CDT) Troponin 0.014 0.000 - 0.040 [facility] Comment: ng/mL [facility] changed methodology effective: 03/25/2019 at 10:00 am The new method has a 99th percentile cutoff of 0.040 ng/mL Specimen Plasma specimen Narrative Performed At [employer] TROP PT added per Heydi Josue at [facility] OF PATHOLOGY [facility] GENOMIC 08 05/30/19 by [facility]FR[facility] Performing Organization Address [facility] [place] Phone Number [facility] DEPARTMENT OF PATHOLOGY AND [address] [place] [address] [address] Prothrombin time with INR (05/30/2019 8:20 AM CDT)Only the most recent of2 resultswithin the time period is included. Prothrombin time 13.7 11.5 - 14.5 [facility] INR 1.1 [place] Comment: KATELYNN The International Normalized Ratio (INR) is a therapeutic HOSPITAL monitoring tool for patients who are stable on oral anticoagulant therapy. An INR of 2.0-3.0 is suggested for deep vein thrombosis/pulmonary embolism. Specimen Blood Narrative Performed At [facility] TROP PT added per Heydi Josue at [facility] PATH[facility] GENOMIC 0848 05/30/19 by [employer] Performing Organization Address City/[facility] Phone Number [facility] DEPARTMENT OF PATHOLOGY AND [address] [place] [address] [address] Lactic acid level (05/30/2019 8:20 AM CDT)Only the most recent of2 resultswithin the time period is included. Lactic acid 2.7 (H) 0.5 - 2.2 mmol/L [facility] Specimen Plasma specimen Narrative Performed At [facility] PT added per Heydi Josue at [facility] PATHOLOGY [facility] GENOMIC 0848 05/30/19 by [facility] Performing Organization Address City/State/Zipcode Phone Number [facility] DEPARTMENT OF PATHOLOGY AND [address] [place] [phone] [phone] ECG 12 lead (05/30/2019 8:14 AM CDT) Ventricular rate 116 [facility] Atrial rate 116 [facility] M[facility] ID interval 180 [facility] QRSD interval 74 [facility] QT interval 412 [facility] QTC interval 572 [facility] P axis 1 45 [facility] QRS axis 1 46 [facility] T wave axis 61 [facility] M[facility] EKG impression Sinus [facility] MUSE tachycardia-Prolonged QT-Abnormal ECG-No previous ECGs available-Electronicall y Signed By Latoya VAN, Gerson Francisco ([id number]) on 05/30/2019 9:16:23 PM Specimen Narrative Performed At Performing Organization Address City/[facility]/Zipcode Phone Number [facility] MUSE [address] [place] [address] Sedimentation rate (05/28/2019 10:55 AM CDT) Sedimentation rate 67 (H) 0 - 10 mm/hr [facility] Specimen Blood Performing Organization Address City/State/Zipcode Phone Number [facility] DEPARTMENT OF PATHOLOGY AND [address] [place] [phone] [address] Sodium level, urine, random (05/28/2019 9:54 AM CDT) Sodium, urine, random 26 mEq/L [facility] Specimen Urine Performing Organization Address City/State/Zipcode Phone Number [facility] DEPARTMENT OF PATHOLOGY AND [address] [place] [address] [facility] [address] [place] [address] Creatinine level, urine, random (05/28/2019 9:54 AM CDT) Creatinine, urine, 170 mg/dL [facility] Specimen Urine Performing Organization Address [facility]/Zipcode Phone Number [facility] DEPARTMENT OF PATHOLOGY AND [address] [place] [address] [facility] [address] [place] [address] US Renal (05/28/2019 9:11 AM CDT) Specimen Narrative Performed At Renal ultrasound, 05/28/2019 10:15 AM [facility] Clinical history: Acute renal failure Comparison: None Technique: Grayscale and color Doppler ultrasound. Findings: Right kidney: 10.2 x 5.5 x 6 cm. Cortex thickness 1.2 cm. Normal kidney. Left kidney: 10.7 x 5.7 x 5.5 cm. Cortex thickness 1.2 cm. Two simple cysts measuring 2 cm in diameter. Otherwise, normal. Bladder: Unremarkable. The patient did not void for postvoid volume calculation. Xgyqb-ib-iafcyvok volume pelvic ascites. Impression: 1.No acute abnormality of the kidneys. Specifically, no evidence of obstruction. 2.Small to moderate pelvic ascites. Procedure Note [facility], Radiology Results Incoming - 05/28/2019 10:20 AM CDT Renal ultrasound, 05/28/2019 10:15 AM Clinical history: Acute renal failure Comparison: None Technique: Grayscale and color Doppler ultrasound. Findings: Right kidney: 10.2 x 5.5 x 6 cm. Cortex thickness 1.2 cm. Normal kidney. Left kidney: 10.7 x 5.7 x 5.5 cm. Cortex thickness 1.2 cm. Two simple cysts measuring 2 cm in diameter. Otherwise, normal. Bladder: Unremarkable. The patient did not void for postvoid volume calculation. Grhyt-ke-rtfwtubz volume pelvic ascites. Impression: 1. No acute abnormality of the kidneys. Specifically, no evidence of obstruction. 2. Small to moderate pelvic ascites. Performing Organization Address City/State/Zipcode Phone Number [facility] [address] [place] [address] Blood culture, aerobic & anaerobic (05/27/2019 11:55 PM CDT)Only the most recent of2 resultswithin the time period is included. Blood culture No growth after 5 days of incubation. [facility] isolate Comment: HOSPITAL Specimen Information Specimen Source: Blood Specimen Site: Unspecified Specimen Blood Performing Organization Address City/[facility] Phone Number [facility] DEPARTMENT OF PATHOLOGY AND [address] [place] [phone] [place] [phone] B natriuretic peptide (05/27/2019 11:25 PM CDT) BNP 14 0 - 100 pg/mL [facility] Specimen Blood Performing Organization Address City/[facility]/Zipcode Phone Number [facility] DEPARTMENT OF PATHOLOGY AND [address] [place] [phone] [place] [phone] Hemoglobin A1c (05/27/2019 11:25 PM CDT) Pathologist [facility] Hemoglobin A1C 7.3 (H) 4.0 - 5.6 % [facility] Comment: HOSPITAL HbA1c cutoffs for diagnosing diabetes: 4.0% - 5.6%=normal 5.7% - 6.4%=increased risk for diabetes (prediabetes) >=6.5%=diabetes Goals for glycemic control (ADA 2016) < 7.0%Target for non adults with diabetes. More or less stringent targets may be appropriate for individual patients. <7.5% Target for Children and adolescents with type 1 diabetes. Specimen Blood Performing Organization Address City/[facility] Phone Number [facility] DEPARTMENT OF PATHOLOGY AND [address] [place] [phone] [place] [phone] Uric acid level (05/27/2019 9:50 PM CDT) Uric acid 6.7 3.4 - 7.0 mg/dL [facility] Specimen Blood Performing Organization Address City/[facility]/Zipcode Phone Number [facility] DEPARTMENT OF PATHOLOGY AND [address] [place] [address] Thyroid stimulating hormone (05/27/2019 9:50 PM CDT) TSH 5.46 (H) 0.27 - 4.20 uIU/mL [facility] Specimen Blood Performing Organization Address [facility] Phone Number [facility] DEPARTMENT OF PATHOLOGY AND [address] [place] [phone] [place] [address] T4, free (05/27/2019 9:50 PM CDT) T4, free 1.4 0.9 - 1.7 ng/dL [facility] Specimen Blood Performing Organization Address [facility] [place] Phone Number [facility] DEPARTMENT OF PATHOLOGY AND [address] [place] [phone] Prealbumin level (05/27/2019 9:50 PM CDT) Prealbumin 10 (L) 16 - 32 mg/dL [facility] Specimen Serum Performing Organization Address [facility] [place] Phone Number [facility] DEPARTMENT OF PATHOLOGY AND [address] [place] [address] Lipase level (05/27/2019 9:50 PM CDT) Lipase 25 13 - 60 U/L [facility] Specimen Blood Performing Organization Address [facility] [place] Phone Number [facility] DEPARTMENT OF PATHOLOGY AND [address] [place] [address] Creatine kinase, total (CPK) (05/27/2019 9:50 PM CDT) Creatine kinase 185 39 - 308 U/L [facility] Specimen Blood Performing Organization Address [facility] Phone Number [facility] DEPARTMENT OF PATHOLOGY AND [address] [place] [phone] [address] Bilirubin direct (05/27/2019 9:50 PM CDT) Bilirubin direct <0.2 0.0 - 0.3 mg/dL [facility] Specimen Blood Performing Organization Address [facility] Phone Number [facility] DEPARTMENT OF PATHOLOGY AND [address] [place], [place] [phone] [address] [address] XR Chest 2 Vw (01/07/2019 4:52 PM [employer]) Specimen Narrative Performed At EXAMINATION:XR CHEST 2 VW HM [facility] CLINICAL HISTORY:R05 Cough, COUGH COMPARISON:None IMPRESSION: Lungs are clear. Cardiothymic is also is within normal limits. Right IJ line is seen with its tip in lower SVC. Suspicious osseous lesion is not identified. [facility]-[id number] Procedure Note Hm Interface, Radiology Results Incoming - 01/07/2019 4:57 PM [employer] EXAMINATION: XR CHEST 2 VW CLINICAL HISTORY: R05 Cough, COUGH COMPARISON: None IMPRESSION: Lungs are clear. Cardiothymic is also is within normal limits. Right IJ line is seen with its tip in lower SVC. Suspicious osseous lesion is not identified. [facility]-[id number] Performing Organization Address City/State/Zipcode Phone Number [facility] [address] [place] [address] after 06/16/2018 Advance Directives Patient has advance care planning documents on file. For more information, please contact:Howie Martinez[address] [place] [address]
--- OUTSIDE RECORDS SUMMARY | 2019-06-17 05:23 | XMS REPORT | Clinical Summary ---
:1955 Author Organization [facility] Address [address] [place] [address] Care Team Providers Name Role Phone Tesha Alonzo Primary Care Provider Allergies No Known Allergies Medications Medication Sig Dispensed Refills Start Date End Date Status allopurinol Take 100 mg by mouth 0 Active (ZYLOPRIM) 100 MG daily. tablet atorvastatin Take 40 mg by mouth 0 Active (LIPITOR) 40 MG daily. tablet gabapentin Take 100 mg by mouth 0 Active (NEURONTIN) 100 MG 3 (three) times capsule daily. insulin glargine Inject 50 Units 0 Active (LANTUS) 100 subcutaneously unit/mL injection nightly Use as directed . metFORMIN Take 500 mg by mouth 0 Active (GLUCOPHAGE) 500 2 (two) times daily MG tablet with breakfast and dinner. insulin aspart Inject 0 Active U-100 (NOVOLOG) subcutaneously 3 100 unit/mL (three) times daily injection before meals. olmesartan Take 40 mg by mouth 0 Active (BENICAR) 40 MG daily. tablet liraglutide Inject 0 Active (VICTOZA SUBQ) subcutaneously 1.2 (don't know the units. tamsulosin Take 0.4 mg by mouth 0 Active (FLOMAX) 0.4 mg daily. Cap 24 hr capsule multivitamin per Take 1 tablet by 0 Active tablet mouth daily. furosemide (LASIX) Take 1 tablet (20 mg 60 tablet 3 08/23/2018 Active 20 MG tablet total) by mouth 2 9 (two) times daily. traMADol (ULTRAM) Take 1 tablet (50 mg 30 tablet 0 08/23/2018 50 mg tablet total) by mouth 8 every 6 (six) hours as needed for Pain for up to 10 days. Max Daily Amount: 200 mg docusate sodium Take 1 capsule (100 10 capsule 0 08/23/2018 (COLACE) 100 MG mg total) by mouth 8 capsule daily as needed for Constipation for up to 10 days. Active Problems Problem Noted Date Acute postoperative pain 08/16/2018 Respiratory distress, acute 08/16/2018 Hypoxia 08/16/2018 Essential hypertension 08/16/2018 Acute kidney injury superimposed on chronic kidney disease 08/16/2018 BPH (benign prostatic hyperplasia) 08/16/2018 Type 2 diabetes mellitus with complication, without long-term current use of insulin Leukocytosis 08/16/2018 Respiratory distress 08/16/2018 Urinary retention due to benign prostatic hyperplasia 08/16/2018 S/p ex-lap, cholecystectomy, parital right lobe liver resection and MWA 2017 (08/14) Encounters Date Type Specialty Care Team Description 08/14/2018 Surgery Víctor Sam, RESECTION,LIVER 08/14/2018 Anesthesia Event Maribel Martel MD 08/14/2018 - Hospital Encounter General Internal Víctor Sam, Acute kidney injury superimposed on chronic kidney disease (HCC); 08/23/2018 Medicine Acute hypoxemic respiratory failure (HCC); Hyperglycemia; Acute post-operative pain; Acute blood loss anemia; Acute pulmonary edema (HCC); Acute respiratory insufficiency; Acute postoperative pain 07/30/2018 Hospital Encounter Pre-Admission Víctor Sam, Testing 07/30/2018 Orders Only General Internal Medicine after 06/16/2018 Social History Tobacco Use Types Packs/Day Years Used Date Never Smoker Smokeless Tobacco: Never Used Alcohol Use Drinks/Week oz/Week Comments No Sex Assigned at Date Recorded Not on file Job Start Date Occupation Industry Not on file Not on file Not on file Travel History Travel Start Travel End No recent travel history available. Last Filed Vital Signs Vital Sign Reading Time Taken Blood Pressure 133/67 08/23/2018 12:00 PM CDT Pulse 88 08/23/2018 12:00 PM CDT Temperature 36.8 C (98.2 F) 08/23/2018 12:00 PM CDT Respiratory Rate 20 08/23/2018 12:00 PM CDT Oxygen Saturation 93% 08/23/2018 12:00 PM CDT Inhaled Oxygen Concentration 21% 08/22/2018 2:51 PM CDT Weight 94.4 kg (208 lb 3.2 oz) 08/20/2018 5:00 AM CDT Height 177.8 cm (5' 10") 08/14/2018 6:30 AM CDT Body Mass Index 29.87 08/20/2018 5:00 AM CDT Plan of Treatment Not on file Implants Implanted Type Area Forest[employer] Professor Device Identifier Shelf Model / Expiration Serial / Lot Date Cath Exp Silv Soak Hoop Puncher 12.5cmx [id number] - [id number] Pain Abdomen MISTY PHAN [id number] 09/10/2020 [id number] / Implanted: Qty: 2 on 08/14/2018 by Víctor Sam MD [facility]/ / marisol [id number] Procedures Procedure Name Priority Date/Time Associated Comments Diagnosis PERMANENT LAB REPORT - 06/10/2019 12:02 SCAN PM CDT INTRAOPERATIVE PATH 09/25/2018 4:36 REPORT - SCAN PM PEDAL ASSEMBLER INTRAOPERATIVE PATH 09/25/2018 4:36 REPORT - SCAN PM PEDAL ASSEMBLER RHYTHM STRIP - SCAN 08/27/2018 9:10 AM CDT POCT-GLUCOSE METER Routine 08/23/2018 12:42 Results for this PM CDT procedure are in the results section. POCT-GLUCOSE METER Routine 08/23/2018 8:08 Results for this AM CDT procedure are in the results section. CBC W/PLT COUNT & AUTO Routine 08/23/2018 4:15 Results for this DIFFERENTIAL AM CDT procedure are in the results section. CALCIUM, IONIZED Routine 08/23/2018 4:15 Results for this AM CDT procedure are in the results section. PHOSPHORUS Routine 08/23/2018 4:15 Results for this AM CDT procedure are in the results section. CBC W/PLT COUNT & AUTO Routine 08/23/2018 4:15 Results for this DIFFERENTIAL AM CDT procedure are in the results section. HEPATIC FUNCTION PANEL Routine 08/23/2018 4:15 Results for this AM CDT procedure are in the results section. MAGNESIUM Routine 08/23/2018 4:15 Results for this AM CDT procedure are in the results section. BASIC METABOLIC PANEL Routine 08/23/2018 4:15 Results for this (7) AM CDT procedure are in the results section. POCT-GLUCOSE METER Routine 08/22/2018 10:02 Results for this PM CDT procedure are in the results section. POCT-GLUCOSE METER Routine 08/22/2018 5:28 Results for this PM CDT procedure are in the results section. PHOSPHORUS Routine 08/22/2018 5:16 Results for this PM CDT procedure are in the results section. POCT-GLUCOSE METER Routine 08/22/2018 10:30 Results for this AM CDT procedure are in the results section. POCT-GLUCOSE METER Routine 08/22/2018 5:35 Results for this AM CDT procedure are in the results section. (CELLAVISION MANUAL Routine 08/22/2018 5:33 Results for this DIFF) AM CDT procedure are in the results section. CBC W/PLT COUNT & AUTO Routine 08/22/2018 5:33 Results for this DIFFERENTIAL AM CDT procedure are in the results section. CALCIUM, IONIZED Routine 08/22/2018 5:33 Results for this AM CDT procedure are in the results section. PHOSPHORUS Routine 08/22/2018 5:33 Results for this AM CDT procedure are in the results section. CBC W/PLT COUNT & AUTO Routine 08/22/2018 5:33 Results for this DIFFERENTIAL AM CDT procedure are in the results section. HEPATIC FUNCTION PANEL Routine 08/22/2018 5:33 Results for this AM CDT procedure are in the results section. MAGNESIUM Routine 08/22/2018 5:33 Results for this AM CDT procedure are in the results section. BASIC METABOLIC PANEL Routine 08/22/2018 5:33 Results for this (7) AM CDT procedure are in the results section. XR CHEST 1 VIEW Routine 08/22/2018 4:54 Results for this PORTABLE/BEDSIDE AM CDT procedure are in the results section. POCT-GLUCOSE METER Routine 08/22/2018 12:10 Results for this AM CDT procedure are in the results section. POCT-GLUCOSE METER Routine 08/21/2018 5:22 Results for this PM CDT procedure are in the results section. PHOSPHORUS Routine 08/21/2018 4:26 Results for this PM CDT procedure are in the results section. SPUTUM CULTURE + GRAM Routine 08/21/2018 2:21 Results for this STAIN PM CDT procedure are in the results section. POCT-GLUCOSE METER Routine 08/21/2018 11:53 Results for this AM CDT procedure are in the results section. POCT-GLUCOSE METER Routine 08/21/2018 10:18 Results for this AM CDT procedure are in the results section. POCT-GLUCOSE METER Routine 08/21/2018 5:48 Results for this AM CDT procedure are in the results section. (CELLAVISION MANUAL Routine 08/21/2018 4:31 Results for this DIFF) AM CDT procedure are in the results section. CBC W/PLT COUNT & AUTO Routine 08/21/2018 4:31 Results for this DIFFERENTIAL AM CDT procedure are in the results section. PHOSPHORUS Routine 08/21/2018 4:31 Results for this AM CDT procedure are in the results section. CBC W/PLT COUNT & AUTO Routine 08/21/2018 4:31 Results for this DIFFERENTIAL AM CDT procedure are in the results section. HEPATIC FUNCTION PANEL Routine 08/21/2018 4:31 Results for this AM CDT procedure are in the results section. MAGNESIUM Routine 08/21/2018 4:31 Results for this AM CDT procedure are in the results section. BASIC METABOLIC PANEL Routine 08/21/2018 4:31 Results for this (7) AM CDT procedure are in the results section. XR CHEST 1 VIEW Routine 08/21/2018 4:11 Results for this PORTABLE/BEDSIDE AM CDT procedure are in the results section. POCT-GLUCOSE METER Routine 08/21/2018 2:32 Results for this AM CDT procedure are in the results section. POCT-GLUCOSE METER Routine 08/20/2018 9:58 Results for this PM CDT procedure are in the results section. PHOSPHORUS Routine 08/20/2018 5:14 Results for this PM CDT procedure are in the results section. POCT-GLUCOSE METER Routine 08/20/2018 5:12 Results for this PM CDT procedure are in the results section. CT CHEST PE TEST DESIGN Routine 08/20/2018 4:29 Results for this PM CDT procedure are in the results section. POCT-GLUCOSE METER Routine 08/20/2018 1:28 Results for this PM CDT procedure are in the results section. POCT-GLUCOSE METER Routine 08/20/2018 11:10 Results for this AM CDT procedure are in the results section. VANCOMYCIN LEVEL, Timed 08/20/2018 9:21 Results for this TROUGH AM CDT procedure are in the results section. POCT-GLUCOSE METER Routine 08/20/2018 8:15 Results for this AM CDT procedure are in the results section. POCT-GLUCOSE METER Routine 08/20/2018 5:54 Results for this AM CDT procedure are in the results section. XR CHEST 1 VIEW Routine 08/20/2018 5:11 Results for this PORTABLE/BEDSIDE AM CDT procedure are in the results section. (CELLAVISION MANUAL Routine 08/20/2018 3:54 Results for this DIFF) AM CDT procedure are in the results section. CBC W/PLT COUNT & AUTO Routine 08/20/2018 3:54 Results for this DIFFERENTIAL AM CDT procedure are in the results section. PHOSPHORUS Routine 08/20/2018 3:54 Results for this AM CDT procedure are in the results section. B-TYPE NATRIURETIC Routine 08/20/2018 3:54 Results for this FACTOR (BNP) AM CDT procedure are in the results section. CALCIUM, IONIZED Routine 08/20/2018 3:54 Results for this AM CDT procedure are in the results section. CBC W/PLT COUNT & AUTO Routine 08/20/2018 3:54 Results for this DIFFERENTIAL AM CDT procedure are in the results section. HEPATIC FUNCTION PANEL Routine 08/20/2018 3:54 Results for this AM CDT procedure are in the results section. MAGNESIUM Routine 08/20/2018 3:54 Results for this AM CDT procedure are in the results section. BASIC METABOLIC PANEL Routine 08/20/2018 3:54 Results for this (7) AM CDT procedure are in the results section. PHOSPHORUS Routine 08/20/2018 1:05 Results for this AM CDT procedure are in the results section. APTT Routine 08/20/2018 12:35 Results for this AM CDT procedure are in the results section. POCT-GLUCOSE METER Routine 08/20/2018 12:29 Results for this AM CDT procedure are in the results section. POCT-GLUCOSE METER Routine 08/19/2018 6:35 Results for this PM CDT procedure are in the results section. APTT Routine 08/19/2018 5:59 Results for this PM CDT procedure are in the results section. PHOSPHORUS Routine 08/19/2018 3:12 Results for this PM CDT procedure are in the results section. ELECTROLYTE PANEL Routine 08/19/2018 3:12 Results for this PM CDT procedure are in the results section. RAPID INFLUENZA A&B STAT 08/19/2018 1:10 Results for this SCREEN PM CDT procedure are in the results section. RESPIRATORY PANEL [facility] STAT 08/19/2018 1:10 Results for this PM CDT procedure are in the results section. POCT-GLUCOSE METER Routine 08/19/2018 11:20 Results for this AM CDT procedure are in the results section. APTT Routine 08/19/2018 10:43 Results for this AM CDT procedure are in the results section. POCT-GLUCOSE METER Routine 08/19/2018 5:33 Results for this AM CDT procedure are in the results section. XR CHEST 1 VIEW Routine 08/19/2018 3:18 Results for this PORTABLE/BEDSIDE AM CDT procedure are in the results section. CBC W/PLT COUNT & AUTO Routine 08/19/2018 2:36 Results for this DIFFERENTIAL AM CDT procedure are in the results section. CBC W/PLT COUNT & AUTO Routine 08/19/2018 2:36 Results for this DIFFERENTIAL AM CDT procedure are in the results section. CALCIUM, IONIZED Routine 08/19/2018 2:36 Results for this AM CDT procedure are in the results section. PHOSPHORUS Routine 08/19/2018 2:36 Results for this AM CDT procedure are in the results section. HEPATIC FUNCTION PANEL Routine 08/19/2018 2:36 Results for this AM CDT procedure are in the results section. MAGNESIUM Routine 08/19/2018 2:36 Results for this AM CDT procedure are in the results section. BASIC METABOLIC PANEL Routine 08/19/2018 2:36 Results for this (7) AM CDT procedure are in the results section. APTT Routine 08/19/2018 2:36 Results for this AM CDT procedure are in the results section. POCT-GLUCOSE METER Routine 08/18/2018 11:49 Results for this PM CDT procedure are in the results section. APTT Routine 08/18/2018 8:51 Results for this PM CDT procedure are in the results section. POCT-GLUCOSE METER Routine 08/18/2018 5:38 Results for this PM CDT procedure are in the results section. ELECTROLYTE PANEL Routine 08/18/2018 5:08 Results for this PM CDT procedure are in the results section. PHOSPHORUS Routine 08/18/2018 5:08 Results for this PM CDT procedure are in the results section. VANCOMYCIN LEVEL, Timed 08/18/2018 12:40 Results for this TROUGH PM CDT procedure are in the results section. PHOSPHORUS STAT 08/18/2018 12:40 Results for this PM CDT procedure are in the results section. MAGNESIUM STAT 08/18/2018 12:40 Results for this PM CDT procedure are in the results section. BASIC METABOLIC PANEL STAT 08/18/2018 12:40 Results for this (7) PM CDT procedure are in the results section. APTT STAT 08/18/2018 12:40 Results for this PM CDT procedure are in the results section. POCT-GLUCOSE METER Routine 08/18/2018 12:04 Results for this PM CDT procedure are in the results section. POCT-GLUCOSE METER Routine 08/18/2018 10:15 Results for this AM CDT procedure are in the results section. POCT-GLUCOSE METER Routine 08/18/2018 8:02 Results for this AM CDT procedure are in the results section. BLOOD GAS, ARTERIAL STAT 08/18/2018 7:09 Results for this AM CDT procedure are in the results section. APTT STAT 08/18/2018 6:11 Results for this AM CDT procedure are in the results section. POCT-GLUCOSE METER Routine 08/18/2018 5:49 Results for this AM CDT procedure are in the results section. CBC W/PLT COUNT & AUTO Routine 08/18/2018 3:28 Results for this DIFFERENTIAL AM CDT procedure are in the results section. PHOSPHORUS Routine 08/18/2018 3:28 Results for this AM CDT procedure are in the results section. CBC W/PLT COUNT & AUTO Routine 08/18/2018 3:28 Results for this DIFFERENTIAL AM CDT procedure are in the results section. CALCIUM, IONIZED Routine 08/18/2018 3:28 Results for this AM CDT procedure are in the results section. HEPATIC FUNCTION PANEL Routine 08/18/2018 3:28 Results for this AM CDT procedure are in the results section. MAGNESIUM Routine 08/18/2018 3:28 Results for this AM CDT procedure are in the results section. BASIC METABOLIC PANEL Routine 08/18/2018 3:28 Results for this (7) AM CDT procedure are in the results section. XR CHEST 1 VIEW Routine 08/18/2018 3:24 Results for this PORTABLE/BEDSIDE AM CDT procedure are in the results section. POCT-GLUCOSE METER Routine 08/17/2018 11:27 Results for this PM CDT procedure are in the results section. APTT STAT 08/17/2018 11:27 Results for this PM CDT procedure are in the results section. PHOSPHORUS Routine 08/17/2018 7:58 Results for this PM CDT procedure are in the results section. POCT-GLUCOSE METER Routine 08/17/2018 6:38 Results for this PM CDT procedure are in the results section. APTT STAT 08/17/2018 6:20 Results for this PM CDT procedure are in the results section. ECHOCARDIOGRAM REPORT - 08/17/2018 5:50 SCAN PM CDT PT/APTT Routine 08/17/2018 1:13 Results for this PM CDT procedure are in the results section. BASIC METABOLIC PANEL Routine 08/17/2018 12:36 Results for this (7) PM CDT procedure are in the results section. POCT-GLUCOSE METER Routine 08/17/2018 11:44 Results for this AM CDT procedure are in the results section. XR CHEST 1 VIEW STAT 08/17/2018 10:35 Results for this PORTABLE/BEDSIDE AM CDT procedure are in the results section. POCT-GLUCOSE METER Routine 08/17/2018 5:51 Results for this AM CDT procedure are in the results section. APTT Routine 08/17/2018 4:45 Results for this AM CDT procedure are in the results section. CREATINE KINASE (CK) Routine 08/17/2018 4:45 Results for this AM CDT procedure are in the results section. CALCIUM, IONIZED Routine 08/17/2018 4:45 Results for this AM CDT procedure are in the results section. B-TYPE NATRIURETIC Routine 08/17/2018 4:45 Results for this FACTOR (BNP) AM CDT procedure are in the results section. HEPATIC FUNCTION PANEL Routine 08/17/2018 4:45 Results for this AM CDT procedure are in the results section. CBC (HEMOGRAM ONLY) Routine 08/17/2018 4:45 Results for this AM CDT procedure are in the results section. PHOSPHORUS Routine 08/17/2018 4:45 Results for this AM CDT procedure are in the results section. MAGNESIUM Routine 08/17/2018 4:45 Results for this AM CDT procedure are in the results section. BASIC METABOLIC PANEL Routine 08/17/2018 4:45 Results for this (7) AM CDT procedure are in the results section. XR CHEST 1 VIEW Routine 08/17/2018 4:04 Results for this PORTABLE/BEDSIDE AM CDT procedure are in the results section. POCT-GLUCOSE METER Routine 08/16/2018 11:55 Results for this PM CDT procedure are in the results section. US RENAL COMPLETE Routine 08/16/2018 7:53 Results for this PM CDT procedure are in the results section. ECG 12-LEAD Routine 08/16/2018 5:57 PM CDT Procedure Note - Interface, External Ris In - 08/16/2018 6:01 PM CDT Ventricular Rate 104 BPM Atrial Rate 104 BPM P-R Interval 186 ms QRS Duration 88 ms Q-T Interval 354 ms QTC Calculation(Bazett) 465 ms P [place] 33 degrees R [place] 18 degrees T [place] 71 degrees Sinus tachycardia Otherwise normal ECG When compared with ECG of 15-AUG-2018 22:48, No significant change was found ECG 12-LEAD STAT 08/16/2018 5:57 PM CDT POCT-GLUCOSE METER Routine 08/16/2018 5:14 PM CDT 2D ECHO W/ DOPPLER VIC 08/16/2018 4:36 PM CDT Results for this (CW/PW/COLOR) procedure are in the results section. CREATININE, RANDOM URINE Routine 08/16/2018 2:58 PM CDT PROTEIN, RANDOM URINE Routine 08/16/2018 2:58 PM CDT SODIUM, RANDOM URINE Routine 08/16/2018 2:58 PM CDT LACTIC ACID, VENOUS Routine 08/16/2018 2:58 PM CDT PHOSPHORUS STAT 08/16/2018 2:58 PM CDT MAGNESIUM STAT 08/16/2018 2:58 PM CDT BASIC METABOLIC PANEL (7) STAT 08/16/2018 2:58 PM CDT URINALYSIS W/ REFLEX URINE Routine 08/16/2018 2:58 PM CDT Results for this CULTURE procedure are in the results section. URINE CULTURE Routine 08/16/2018 2:58 PM CDT NM LUNG SCAN PERFUSION STAT 08/16/2018 12:39 PM CDT Results for this PARTICULATE VENT procedure are in the results section. POCT-GLUCOSE METER Routine 08/16/2018 11:23 AM CDT VENOUS DOPPLER LEGS STAT 08/16/2018 8:55 AM CDT Results for this BILATERAL procedure are in the results section. BLOOD GAS, ARTERIAL Routine 08/16/2018 8:30 AM CDT POCT-GLUCOSE METER Routine 08/16/2018 8:16 AM CDT XR CHEST 1 VIEW STAT 08/16/2018 7:47 AM CDT Results for this PORTABLE/BEDSIDE procedure are in the results section. BLOOD GAS, VENOUS Routine 08/16/2018 3:09 AM CDT LACTIC ACID, VENOUS Routine 08/16/2018 3:09 AM CDT HEPATIC FUNCTION PANEL Routine 08/16/2018 3:09 AM CDT CBC (HEMOGRAM ONLY) Routine 08/16/2018 3:09 AM CDT PHOSPHORUS Routine 08/16/2018 3:09 AM CDT MAGNESIUM Routine 08/16/2018 3:09 AM CDT BASIC METABOLIC PANEL (7) Routine 08/16/2018 3:09 AM CDT XR ABDOMEN 1 VIEW STAT 08/16/2018 1:21 AM CDT ECG 12-LEAD Routine 08/15/2018 10:48 PM CDT Procedure Note - Interface, External Ris In - 08/15/2018 10:53 PM CDT Ventricular Rate 114 BPM Atrial Rate 114 BPM QRS Duration 84 ms Q-T Interval 332 ms QTC Calculation(Bazett) 457 ms P [place] 70 degrees R [place] 57 degrees T [place] 22 degrees Sinus tachycardia Nonspecific ST abnormality Abnormal ECG When compared with ECG of 30-JUL-2018 10:54, Premature atrial complexes are no longer Present Minimal criteria for Inferior infarct are no longer Present ECG 12-LEAD Routine 08/15/2018 10:48 PM Results for this CDT procedure are in the results section. BLOOD CULTURE Routine 08/15/2018 10:46 PM Results for this CDT procedure are in the results section. CBC (HEMOGRAM ONLY) STAT 08/15/2018 10:45 PM Results for this CDT procedure are in the results section. BLOOD CULTURE Routine 08/15/2018 10:45 PM Results for this CDT procedure are in the results section. POCT-HEMOGLOBIN Routine 08/15/2018 10:40 PM Results for this CDT procedure are in the results section. POCT-HEMATOCRIT Routine 08/15/2018 10:40 PM Results for this CDT procedure are in the results section. POCT-CALCIUM IONIZED Routine 08/15/2018 10:40 PM Results for this CDT procedure are in the results section. POCT-GLUCOSE Routine 08/15/2018 10:40 PM Results for this CDT procedure are in the results section. POCT-POTASSIUM Routine 08/15/2018 10:40 PM Results for this CDT procedure are in the results section. POCT-SODIUM Routine 08/15/2018 10:40 PM Results for this CDT procedure are in the results section. POCT-BLOOD GASES, Routine 08/15/2018 10:40 PM Results for this ARTERIAL CDT procedure are in the results section. POCT-LACTIC ACID, Routine 08/15/2018 10:35 PM Results for this ARTERIAL CDT procedure are in the results section. XR CHEST 1 VIEW VIC 08/15/2018 10:35 PM Results for this PORTABLE/BEDSIDE CDT procedure are in the results section. POCT-GLUCOSE METER Routine 08/15/2018 9:31 PM Results for this CDT procedure are in the results section. POCT-GLUCOSE METER Routine 08/15/2018 5:54 PM Results for this CDT procedure are in the results section. POCT-GLUCOSE METER Routine 08/15/2018 11:44 AM Results for this CDT procedure are in the results section. POCT-HEMOGLOBIN Routine 08/15/2018 9:33 AM Results for this CDT procedure are in the results section. POCT-HEMATOCRIT Routine 08/15/2018 9:33 AM Results for this CDT procedure are in the results section. POCT-CALCIUM IONIZED Routine 08/15/2018 9:33 AM Results for this CDT procedure are in the results section. POCT-GLUCOSE Routine 08/15/2018 9:33 AM Results for this CDT procedure are in the results section. POCT-POTASSIUM Routine 08/15/2018 9:33 AM Results for this CDT procedure are in the results section. POCT-SODIUM Routine 08/15/2018 9:33 AM Results for this CDT procedure are in the results section. POCT-BLOOD GASES, Routine 08/15/2018 9:33 AM Results for this ARTERIAL CDT procedure are in the results section. POCT-GLUCOSE METER Routine 08/15/2018 8:55 AM Results for this CDT procedure are in the results section. HEPATIC FUNCTION PANEL Add-On 08/15/2018 4:46 AM Results for this CDT procedure are in the results section. LACTIC ACID, VENOUS Routine 08/15/2018 4:46 AM Results for this CDT procedure are in the results section. CBC (HEMOGRAM ONLY) Routine 08/15/2018 4:46 AM Results for this CDT procedure are in the results section. PHOSPHORUS Routine 08/15/2018 4:46 AM Results for this CDT procedure are in the results section. MAGNESIUM Routine 08/15/2018 4:46 AM Results for this CDT procedure are in the results section. BASIC METABOLIC PANEL (7) Routine 08/15/2018 4:46 AM Results for this CDT procedure are in the results section. POCT-GLUCOSE METER Routine 08/14/2018 9:56 PM Results for this CDT procedure are in the results section. POCT-GLUCOSE METER Routine 08/14/2018 6:43 PM Results for this CDT procedure are in the results section. POCT-GLUCOSE METER Routine 08/14/2018 4:13 PM Results for this CDT procedure are in the results section. HGB/HCT (H&H) - STAT LAB STAT 08/14/2018 1:11 PM Results for this CDT procedure are in the results section. GLUCOSE-STAT LAB STAT 08/14/2018 1:11 PM Results for this CDT procedure are in the results section. POTASSIUM-STAT LAB STAT 08/14/2018 1:11 PM Results for this CDT procedure are in the results section. SODIUM NA-STAT LAB STAT 08/14/2018 1:11 PM Results for this CDT procedure are in the results section. BLOOD GAS, ARTERIAL STAT 08/14/2018 1:11 PM Results for this CDT procedure are in the results section. CALCIUM, IONIZED STAT 08/14/2018 1:11 PM Results for this CDT procedure are in the results section. RRL CRITICAL LABS STAT 08/14/2018 1:11 PM Results for this (ABG,NA,K,H&H,GLUCOSE) CDT procedure are in the results section. CALCIUM, IONIZED STAT 08/14/2018 11:15 AM Results for this CDT procedure are in the results section. HGB/HCT (H&H) - STAT LAB STAT 08/14/2018 11:15 AM Results for this CDT procedure are in the results section. GLUCOSE-STAT LAB STAT 08/14/2018 11:15 AM Results for this CDT procedure are in the results section. POTASSIUM-STAT LAB STAT 08/14/2018 11:15 AM Results for this CDT procedure are in the results section. SODIUM NA-STAT LAB STAT 08/14/2018 11:15 AM Results for this CDT procedure are in the results section. BLOOD GAS, ARTERIAL STAT 08/14/2018 11:15 AM Results for this CDT procedure are in the results section. HGB/HCT (H&H) - STAT LAB STAT 08/14/2018 10:03 AM Results for this CDT procedure are in the results section. GLUCOSE-STAT LAB STAT 08/14/2018 10:03 AM Results for this CDT procedure are in the results section. POTASSIUM-STAT LAB STAT 08/14/2018 10:03 AM Results for this CDT procedure are in the results section. SODIUM NA-STAT LAB STAT 08/14/2018 10:03 AM Results for this CDT procedure are in the results section. BLOOD GAS, ARTERIAL STAT 08/14/2018 10:03 AM Results for this CDT procedure are in the results section. CALCIUM, IONIZED STAT 08/14/2018 10:03 AM Results for this CDT procedure are in the results section. RRL CRITICAL LABS STAT 08/14/2018 10:03 AM Results for this (ABG,NA,K,H&H,GLUCOSE) CDT procedure are in the results section. TISSUE EXAM AP Routine 08/14/2018 9:24 AM Results for this CDT procedure are in the results section. ANESTHESIA SPINAL BLOCK Routine 08/14/2018 8:36 AM Results for this CDT procedure are in the results section. CHOLECYSTECTOMY 08/14/2018 8:15 AM Liver mass CDT RESECTION,LIVER 08/14/2018 8:15 AM Liver mass CDT POCT-GLUCOSE METER Routine 08/14/2018 7:12 AM Results for this CDT procedure are in the results section. TRANSFUSION SERVICE 07/31/2018 5:54 PM REPORT - SCAN CDT TYPE AND SCREEN, Routine 07/30/2018 10:59 AM Results for this AUTOMATED CDT procedure are in the results section. PLATELET COUNT Routine 07/30/2018 10:59 AM Results for this CDT procedure are in the results section. GLUCOSE Routine 07/30/2018 10:59 AM Results for this CDT procedure are in the results section. BUN AND CREATININE Routine 07/30/2018 10:59 AM Results for this CDT procedure are in the results section. ELECTROLYTE PANEL Routine 07/30/2018 10:59 AM Results for this CDT procedure are in the results section. HEMOGLOBIN Routine 07/30/2018 10:59 AM Results for this CDT procedure are in the results section. ECG 12-LEAD Routine 07/30/2018 10:54 AM CDT Procedure Note - Interface, External Ris In - 07/30/2018 5:49 PM CDT Ventricular Rate 110 BPM Atrial Rate 110 BPM P-R Interval 176 ms QRS Duration 74 ms Q-T Interval 350 ms QTC Calculation(Bazett) 473 ms P [place] 40 degrees R [place] -8 degrees T [place] 84 degrees Sinus tachycardia with Premature atrial complexes Cannot rule out Inferior infarct , age undetermined Abnormal ECG No previous ECGs available ECG 12-LEAD Routine 07/30/2018 10:54 AM CDT after 06/16/2018 Results PERMANENT LAB REPORT - SCAN (06/10/2019 12:02 PM CDT) Narrative Performed At INTRAOPERATIVE PATH REPORT - SCAN (09/25/2018 4:36 PM PEDAL ASSEMBLER)Only the most recent of2 resultswithin the time period is included. Narrative Performed At RHYTHM STRIP - SCAN (08/27/2018 9:10 AM CDT) Narrative Performed At POC-Glucose meter (08/23/2018 12:42 PM CDT)Only the most recent of44 resultswithin the time period is included. POC-Glucose Meter 200 (H)Comment: TESTED AT 70 - 110 mg/dL [facility] [address] [facility] [address] Specimen Blood Performing Organization Address City/State/Zipcode Phone Number [facility] [address] [place] [address] CENTER Calcium, Ionized (08/23/2018 4:15 AM CDT)Only the most recent of9 resultswithin the time period is included. Calcium, Ion 0.99 (L) 1.12 - 1.27 mmol/L [facility] pH, Blood 7.51 [facility] Specimen Blood Performing Organization Address City/State/Zipcode Phone Number [facility] [address] [place] [address] [phone] CENTER CBC with platelet count + automated diff (08/23/2018 4:15 AM CDT)Only the most recent of6 resultswithin the time period is included. WBC 11.8 (H) 3.5 - 10.5 K/L [facility] RBC 2.97 (L) 4.63 - 6.08 M/L [facility] Hemoglobin 9.3 (L) 13.7 - 17.5 GM/DL [facility] Hematocrit 28.5 (L) 40.1 - 51.0 % [facility] MCV 96.0 (H) 79.0 - 92.2 fL [facility] MCH 31.3 25.7 - 32.2 pg [facility] MCHC 32.6 32.3 - 36.5 GM/DL [facility] RDW 16.4 (H) 11.6 - 14.4 % [facility] Platelets 383 150 - 450 K/CU MM [facility] MPV 10.3 9.4 - 12.4 fL [facility] nRBC 0 0 - 0 /100 WBC [facility] % Neutros 66 % [facility] % Lymphs 18 % [facility] % Monos 11 % [facility] % Eos 1 % [facility] % Baso 1 % [facility] # Neutros 7.75 (H) 1.78 - 5.38 K/L [facility] # Lymphs 2.09 1.32 - 3.57 K/L [facility] # Monos 1.25 (H) 0.30 - 0.82 K/L [facility] # Eos 0.13 0.04 - 0.54 K/L [facility] # Baso 0.06 0.01 - 0.08 K/L [facility] Immature Granulocytes-Relative 5 (H) 0 - 1 % [facility] Specimen Blood Performing Organization Address City/[facility] Phone Number [address] [address] CENTER Phosphorus (08/23/2018 4:15 AM CDT)Only the most recent of18 resultswithin the time period is included. Phosphorus 3.2 2.3 - 4.7 mg/dL [facility] Specimen Blood Performing Organization Address City/[facility] Cent[facility] Phone Number [address] [address] CENTER Magnesium (08/23/2018 4:15 AM CDT)Only the most recent of11 resultswithin the time period is included. Magnesium 1.7 1.6 - 2.6 mg/dL [facility] Specimen Blood Performing Organization Address City/[facility] Phone Number [address] [address] CENTER Hepatic function panel (08/23/2018 4:15 AM CDT)Only the most recent of9 resultswithin the time period is included. Protein, Total 5.9 (L) 6.0 - 8.3 gm/dL [facility] Albumin 3.1 (L) 3.5 - 5.0 g/dL [facility] Total Bilirubin 0.8 0.2 - 1.2 mg/dL [facility] Bilirubin, Direct 0.6 (H) 0.1 - 0.5 mg/dL [facility] Alkaline Phosphatase 90 40 - 150 U/L [facility] AST 33 5 - 34 U/L [facility] ALT 63 (H) 6 - 55 U/L [facility] Specimen Blood Performing Organization Address City/[facility] [place] [facility] Cent[facility] Phone Number [address] [address] [phone] CENTER Basic Metabolic Panel (08/23/2018 4:15 AM CDT)Only the most recent of12 resultswithin the time period is included. Sodium 135 (L) 136 - 145 meq/L [facility] Potassium 3.6 3.5 - 5.1 meq/L [facility] Chloride 102 98 - 107 meq/L [facility] CO2 24 22 - 29 meq/L [facility] BUN 13 7 - 21 mg/dL [facility] Creatinine 1.08 0.57 - 1.25 mg/dL [facility] Glucose 108 (H) 70 - 105 mg/dL [facility] Calcium 8.4 8.4 - 10.2 mg/dL [facility] EGFR 69Comment: ESTIMATED GFR IS mL/min/1.73 sq m [facility] NOT ACCURATE CREATININE [facility] CENTER CLEARANCE IN PREDICTING GLOMERULAR FILTRATION RATE. ESTIMATED GFR IS NOT APPLICABLE FOR DIALYSIS PATIENTS. Specimen Blood Performing Organization Address City/[facility]/Zipcode Phone Number [address] [place], [place] [id number] [phone] CENTER Manual Differential (08/22/2018 5:33 AM CDT)Only the most recent of3 resultswithin the time period is included. % Neutros 77 % [facility] % Lymphs 10 % [facility] % Monos 11 % [facility] % Myelo 1 (H) 0 - 0 % [facility] % Bands 1 0 - 10 % [facility] # Neutros 8.70 (H) 1.78 - 5.38 K/ul [facility] # Lymphs 1.13 (L) 1.32 - 3.57 K/ul [facility] # Monos 1.24 (H) 0.30 - 0.82 K/uL [facility] # Myelo 0.11 (H) 0.00 - 0.00 K/uL [facility] # Bands 0.11 0.00 - 0.80 K/uL [facility] Total Counted 100 [facility] RBC Morphology Normal [facility] WBC Morphology Normal [facility] Platelet Morphology Normal [facility] Artifact Present [facility] Platelet Conc Adequate [facility] Specimen Blood Narrative Performed At Received comment: [facility] User comments: Slide comments: Performing Organization Address City/State/Zipcode Phone Number [address] [address] [place] XR chest 1 view portable / bedside (08/22/2018 4:54 AM CDT)Only the most recent of9 resultswithin the time period is included. Specimen Narrative Performed At FINAL REPORT GE RIS RAD, CHEST, 1 VIEW, NON DEPT INDICATION: fluid overload COMPARISON: Prior day's exam FINDINGS: Portable frontal view of the chest. IMPRESSION: Support Lines: Stable. Lungs and pleura: Unchanged airspace and pleural opacities. No pneumothorax. Heart and mediastinum: Stable contours. Stable surgical changes. Additional findings: None. Signed: Mayela Wade MD Report Verified Date/Time:08/22/2018 05:00:09 Reading Location: [address] Transitional Reading Room Procedure Note Interface, External Ris In - 08/22/2018 5:02 AM CDT FINAL REPORT RAD, CHEST, 1 VIEW, NON DEPT INDICATION: fluid overload COMPARISON: Prior day's exam FINDINGS: Portable frontal view of the chest. IMPRESSION: Support Lines: Stable. Lungs and pleura: Unchanged airspace and pleural opacities. No pneumothorax. Heart and mediastinum: Stable contours. Stable surgical changes. Additional findings: None. Signed: Mayela Wade MD Report Verified Date/Time: 08/22/2018 05:00:09 Reading Location: [address] Transitional Reading Room Performing Organization Address City/State/Zipcode Phone Number WriteOn Sputum Culture + Gram Stain (08/21/2018 2:21 PM CDT) Result 3+ Normal respiratory talat [facility] Gram Stain Result <1+ WBCs [facility] Gram Stain Result 0-5 epithelial cells [facility] Gram Stain Result 1+ gram positive cocci in [facility] chains, pairs and clusters [facility] Specimen Sputum - Expectorated Performing Organization Address City/State/Zipcode Phone Number [facility] [address] [place] [address] [phone] chest for pulmonary embolus (08/20/2018 4:29 PM CDT) Specimen Narrative Performed At FINAL REPORT GE WriteOn CT Chest PE Protocol dated 08/20/2018 Clinical information: Chest pain, acute, PE suspected, high pretest prob Technique: This exam was performed according to our departmental dose-optimization program, which includes automated exposure control, adjustment of the mA and/or kV according to patient size and/or use of interactive reconstruction technique. Precontrast axial images were obtained at pulmonary trunk level for the purpose of monitoring subsequent IV contrast. Postcontrast axial images of the chest were obtained from above the arch level to the lower chest at maximum enhancement of pulmonary artery. Delayed axial images of the entire chest were obtained subsequently. Coronal and sagittal reformations of the pulmonary arteries were performed. Comment: Heart is normal in size. Greater vessels are unremarkable. No filling detect is noted in the pulmonary trunk or pulmonary arteries. No adenopathy is noted in the mediastinum or perihilar region. Trachea and mainstem bronchi are patent. There is moderate bilateral pleural effusion with bibasilar subsegmental atelectasis. Nonspecific groundglass pulmonary parenchymal disease is seen in the rest of lungs. Differential diagnosis for the groundglass pulmonary parenchymal disease is the following: usual interstitial pneumonia, nonspecific interstitial pneumonitis, desquamative interstitial pneumonia, hypersensitivity pneumonitis, pulmonary edema or pulmonary hemorrhage. Impression: 1. No pulmonary thromboembolism. 2. Bilateral pleural effusion with bibasilar compressive atelectasis. 3. Nonspecific groundglass pulmonary parenchymal disease. Differential as described as above. Signed: Kristine Parker MD Report Verified Date/Time:08/20/2018 16:47:26 Reading Location: [facility] [id number] CT Body Reading Room Procedure Note Interface, External Ris In - 08/20/2018 4:49 PM CDT FINAL REPORT CT Chest PE Protocol dated 08/20/2018 Clinical information: Chest pain, acute, PE suspected, high pretest prob Technique: This exam was performed according to our departmental dose-optimization program, which includes automated exposure control, adjustment of the mA and/or kV according to patient size and/or use of interactive reconstruction technique. Precontrast axial images were obtained at pulmonary trunk level for the purpose of monitoring subsequent IV contrast. Postcontrast axial images of the chest were obtained from above the arch level to the lower chest at maximum enhancement of pulmonary artery. Delayed axial images of the entire chest were obtained subsequently. Coronal and sagittal reformations of the pulmonary arteries were performed. Comment: Heart is normal in size. Greater vessels are unremarkable. No filling detect is noted in the pulmonary trunk or pulmonary arteries. No adenopathy is noted in the mediastinum or perihilar region. Trachea and mainstem bronchi are patent. There is moderate bilateral pleural effusion with bibasilar subsegmental atelectasis. Nonspecific groundglass pulmonary parenchymal disease is seen in the rest of lungs. Differential diagnosis for the groundglass pulmonary parenchymal disease is the following: usual interstitial pneumonia, nonspecific interstitial pneumonitis, desquamative interstitial pneumonia, hypersensitivity pneumonitis, pulmonary edema or pulmonary hemorrhage. Impression: 1. No pulmonary thromboembolism. 2. Bilateral pleural effusion with bibasilar compressive atelectasis. 3. Nonspecific groundglass pulmonary parenchymal disease. Differential as described as above. Signed: Kristine Parker MD Report Verified Date/Time: 08/20/2018 16:47:26 Reading Location: [address] Body Reading Room Performing Organization Address [facility] Phone Number [facility] Vancomycin level, trough (08/20/2018 9:21 AM CDT)Only the most recent of2 resultswithin the time period is included. Vancomycin Tr 16.5 10.0 - 20.0 ug/mL [facility] Specimen Blood Narrative Performed At Please draw 30 min prior to AM dose [facility] Performing Organization Address City/[facility] Phone Number [address] [address] CENTER B-type Natriuretic Factor (BNP) (08/20/2018 3:54 AM CDT)Only the most recent of2 resultswithin the time period is included. BNP 450 (H) 0 - 100 pg/mL [facility] Specimen Blood Performing Organization Address [facility] Phone Number [address] [address] CENTER aPTT (08/20/2018 12:35 AM CDT)Only the most recent of10 resultswithin the time period is included. PTT 84.7 (H) 22.5 - 36.0 seconds [facility] Specimen Blood Performing Organization Address City/State/Zipcode Phone Number [facility] [address] [place] [address] [phone] CENTER Electrolytes (08/19/2018 3:12 PM CDT)Only the most recent of3 resultswithin the time period is included. Sodium 138 136 - 145 meq/L [facility] Potassium 3.4 (L) 3.5 - 5.1 meq/L [facility] Chloride 105 98 - 107 meq/L [facility] CO2 24 22 - 29 meq/L [facility] Specimen Blood Narrative Performed At Call [phone] [facility] Performing Organization Address City/[facility] [place] [facility] Phone Number [facility] [address] [place] [address] [place] Respiratory Panel [facility] (08/19/2018 1:10 PM CDT) Human Metapneumovirus Not detected Not detected, [facility] Rhinovirus Not detected Not detected, [facility] Influenza A Not detected Not detected, [facility] INFLUENZA A (NO SUBTYPE) Not detected, [facility] Influenza A subtype H1 Not detected, [facility] Influenza A Subtype H3 Not detected, [facility] Influenza A Subtype H1-2009 Not detected, [facility] Influenza B Not detected Not detected, [facility] Respiratory Syncytial Virus Not detected Not detected, [facility] Parainfluenza Virus 1 Not detected Not detected, [facility] Parainfluenza Virus 2 Not detected Not detected, [facility] Parainfluenza virus 3 Not detected Not detected, [facility] Parainfluenza Virus 4 Not detected Not detected, [facility] Adenovirus Not detected Not detected, [facility] Coronavirus 229E Not detected Not detected, [facility] Coronavirus HKU1 Not detected Not detected, [facility] Coronavirus NL63 Not detected Not detected, [facility] Coronavirus OC43 Not detected Not detected, [facility] Bordetella Pertussis Not detected Not detected, [facility] Chlamydophila Pneumoniae Not detected Not detected, [facility] Mycoplasma Pneumoniae Not detected Not detected, [facility] Specimen Nasopharyngeal Narrative Performed At Other viruses and bacteria not targeted by [facility] this PCR panel cannot be excluded; therefore clinical correlation and follow up of serology, culture results, and other molecular studies is required. The results are not intended to be used as the sole means for clinical diagnosis or patient management decisions. This sample was tested at the [facility] using the [employer] Respiratory Panel. It is FDA cleared and has been verified and approved by the [facility] for clinical use on nasal swab specimens. It is not FDA-cleared for use on bronchial wash/lavage samples. However, for this sample type, validation was performed and test characteristics were determined and approved, by [facility] for clinical use under the Clinical Laboratory Improvement Amendments (CLIA) of 1988 requirements. Therefore, FDA clearance is not required.This laboratory is CLIA-certified and [employer] ([employer])-accredited to perform high complexity testing. Performing Organization Address City/State/Zipcode Phone Number [facility] [address] [place] [address] CENTER Rapid Influenza A&B Screen (08/19/2018 1:10 PM CDT) Rapid Influenza A Antigen Negative Negative, Inconclusive [facility] Rapid influenza B Antigen Negative Negative, Inconclusive [facility] Specimen Nasal Performing Organization Address City/[facility]/Zipcode Phone Number [facility] [address] [place] [address] [place] Blood gas, arterial (08/18/2018 7:09 AM CDT)Only the most recent of5 resultswithin the time period is included. pH, Arterial 7.51 (H) 7.35 - 7.45 [facility] pCO2, Arterial 29 (L) 35 - 45 mmHg [facility] pO2, Arterial 173 (H) 80 - 90 mmHg [facility] O2 Sat, Arterial 99.3 (H) 96.0 - 97.0 % [facility] HCO3, Arterial 23 21 - 29 mmol/L [facility] Base Excess, Arterial 0.4 -2.0 - 3.0 mmol/L [facility] Patient Temperature 37.0 C [facility] FIO2 60.0 % [facility] Specimen Blood, Arterial Performing Organization Address City/[facility]/Zipcode Phone Number [facility] [address] [place] [address] [place] ECHOCARDIOGRAM REPORT - SCAN (08/17/2018 5:50 PM CDT) Narrative Performed At PT/aPTT (08/17/2018 1:13 PM CDT) Protime 14.0 11.7 - 14.7 seconds [facility] INR 1.1 <=5.9 [facility] PTT 45.0 (H) 22.5 - 36.0 seconds [facility] Specimen Blood Narrative Performed At [facility] RECOMMENDED COUMADIN/WARFARIN INR THERAPY RANGES STANDARD DOSE: 2.0 - 3.0 Includes: PROPHYLAXIS for venous thrombosis, systemic embolization; TREATMENT for venous thrombosis and/or pulmonary embolus. HIGH RISK: Target INR is 2.5-3.5 for patients with mechanical heart valves. Performing Organization Address City/State/Zipcode Phone Number [facility] [address] [place] [phone] [place] CBC (Hemogram only) (08/17/2018 4:45 AM CDT)Only the most recent of4 resultswithin the time period is included. WBC 13.1 (H) 3.5 - 10.5 K/L [facility] RBC 3.23 (L) 4.63 - 6.08 M/L [facility] Hemoglobin 10.3 (L) 13.7 - 17.5 GM/DL [facility] Hematocrit 31.8 (L) 40.1 - 51.0 % [facility] MCV 98.5 (H) 79.0 - 92.2 fL [facility] MCH 31.9 25.7 - 32.2 pg [facility] MCHC 32.4 32.3 - 36.5 GM/DL [facility] RDW 17.1 (H) 11.6 - 14.4 % [facility] Platelets 173 150 - 450 K/CU MM [facility] MPV 11.3 9.4 - 12.4 fL [facility] nRBC 0 0 - 0 /100 WBC [facility] Specimen Blood Performing Organization Address City/[facility]/Zipcode Phone Number [facility] [address] [place] [address] [phone] CENTER Creatine Kinase (CK) (08/17/2018 4:45 AM CDT) Total CK 1,084 (H) 29 - 200 U/L [facility] Specimen Blood Performing Organization Address City/[facility]/Zipcode Phone Number [facility] [address] [place] [address] CENTER US renal complete (08/16/2018 7:53 PM CDT) Specimen Narrative Performed At FINAL REPORT [facility] Renal ultrasound dated 08/16/2018 Comment:Real-time transabdominal renal ultrasound was performed. Right kidney measures 10.4 x 6.1 x 5.4 cm.Left kidney measures 10 21 x 6.2 x 4.3 cm.Right renal cortex measures 1.7 cm.Left renal cortex measures 1.6 cm. Echogenicity of both renal parenchyma is normal. No hydronephrosis, solid or cystic mass seen. Comparisons made with prior MRI dated July 29, 2018 from [facility]. A 2.2 cm mass is seen in the upper pole left kidney. A 1.7 cm cyst is seen in the inferior pole left kidney. The urinary bladder is contracted. Doppler ultrasound demonstrates patent main renal artery and vein bilaterally. Impression:Unable to identify mass lesion and cyst in the left kidney in the previous MR examination. Recommend to further evaluation with repeat CT of MRI of the abdomen with renal protocol in 3 months. Signed: Kristine Parker MD Report Verified Date/Time:08/16/2018 23:12:40 Reading Location: [address] Consult Reading Room Procedure Note Interface, External Ris In - 08/16/2018 11:14 PM CDT FINAL REPORT Renal ultrasound dated 08/16/2018 Comment: Real-time transabdominal renal ultrasound was performed. Right kidney measures 10.4 x 6.1 x 5.4 cm. Left kidney measures 10 21 x 6.2 x 4.3 cm. Right renal cortex measures 1.7 cm. Left renal cortex measures 1.6 cm. Echogenicity of both renal parenchyma is normal. No hydronephrosis, solid or cystic mass seen. Comparisons made with prior MRI dated July 29, 2018 from [facility]. A 2.2 cm mass is seen in the upper pole left kidney. A 1.7 cm cyst is seen in the inferior pole left kidney. The urinary bladder is contracted. Doppler ultrasound demonstrates patent main renal artery and vein bilaterally. Impression: Unable to identify mass lesion and cyst in the left kidney in the previous MR examination. Recommend to further evaluation with repeat CT of MRI of the abdomen with renal protocol in 3 months. Signed: Kristine Parker MD Report Verified Date/Time: 08/16/2018 23:12:40 Reading Location: [facility] C013W Consult Reading Room Performing Organization Address City/State/Zipcode Phone Number GE RIS ECG 12 lead (08/16/2018 5:57 PM CDT)Only the most recent of3 resultswithin the time period is included. Specimen Narrative Performed At Ventricular Rate 104 BPM GE MUSE Atrial Rate 104 BPM P-R Interval 186 ms QRS Duration 88 ms Q-T Interval 354 ms QTC Calculation(Bazett) 465 ms P [place] 33 degrees R [place] 18 degrees T [place] 71 degrees Sinus tachycardia Otherwise normal ECG When compared with ECG of 15-AUG-2018 22:48, No significant change was found Confirmed by MD SMITH RUPA ([id number]) on 08/18/2018 3:53:01 PM Procedure Note Interface, External Ris In - 08/18/2018 3:53 PM CDT Ventricular Rate 104 BPM Atrial Rate 104 BPM P-R Interval 186 ms QRS Duration 88 ms Q-T Interval 354 ms QTC Calculation(Bazett) 465 ms P [place] 33 degrees R [place] 18 degrees T [place] 71 degrees Sinus tachycardia Otherwise normal ECG When compared with ECG of 15-AUG-2018 22:48, No significant change was found Confirmed by MD SMITH RUPA ([id number]) on 08/18/2018 3:53:01 PM Performing Organization Address City/[facility] Phone Number GE MUSE 2D Echo W/Doppler(CW/PW/Color) (08/16/2018 4:36 PM CDT) Ejection Fraction [facility] ECHO HEARTTastemakerX [facility] Specimen Narrative Performed At Transthoracic Echocardiography Report (TTE) [facility] ECHO HEARTKAICOREON [facility] Demographics Patient NameCLARICE MEJIA Date of Study08/16/2018 Male Visit [id number] Unknown Room [id number] Number Date of 1955Referring PhysicianRaul Renee Age 63 year(s)Family Support Specialist Toyin Black [facility] Inspector Plating Jonitaina Stoll Interpreting Moira Restrepo MD Procedure Type of Study TTE procedure:2DECHO W DOPPLER(CW/PW/COLOR) (VIC) Indications:Shortness of breath. Clinical History CKD;DM;HLD;HTN;LIVER MASS;RESECTION LIVER HGB 10.3 HCT 31.4 % Contrast Medium: Definity. Height: 70 inches Weight: 101.15 kg (223 lbs) BSA: 2.19 m^2 BMI: 32 kg/m^2 HR: 109 bpm BP: 140/72 mmHg Summary The left ventricle is chamber size (by PSLAX dimension) is normal (male - LVIDd 4.2-5.8cm) . Normal LV wall thickness. All of the LV segments contract normally . Global LV systolic function normal . Estimated LVEF by qualitative assessment is normal (>60%) . Normal (cardiac index 2-3 L/min/m2) cardiac output state at rest is noted. Degree of diastolic dysfunction (LAP assessment) is inconclusive. Estimated peak systolic PA pressure is 30-35 mmHg . No significant pericardial effusion is visualized. Previous Study No prior exam available for comparison. Signature Findings Rhythm/BPSinus tachyarrhythmia during the exam. Left Ventricle The left ventricle is chamber size (by PSLAX di mension) is normal (male - LVIDd 4.2-5.8cm) . No rmal LV wall thickness. All of the LV segments co ntract normally . Global LV systolic function no rmal . Estimated LVEF by qualitative assessment is normal (>60%) . Normal (cardiac index 2-3 L/ min/m2) cardiac output state at rest is noted. De gree of diastolic dysfunction (LAP assessment) is in conclusive. Left AtriumLA size is mildly enlarged (35-41 ml/m2) . Right VentricleThe right ventricular chamber size and systolic fu nction are within normal limits. Right Atrium RA cavity size is normal . Aortic Valve Mild AoV cusp calcification. Ao V cusp mobility is normal . Mitral Valve Mild MV leaflet thickening. Mi ld mitral annular calcification. Mi ld mitral regurgitation. Tricuspid ValveA trace of tricuspid regurgitation. Es timated peak systolic PA pressure is 30-35 mmHg . Pulmonic Valve Normal PV structure and function. AortaAortic root size (SInus of Valsalva diameter) is no rmal . Proximal ascending aorta size is normal . PericardiumNo significant pericardial effusion is visualized. IVC/SVC/PA/PV/PleuralThe estimated RA pressure by IVC dynamics 5-10mmHg . Chambers/Structures Left Atrium LA Volume: 83.22 ml LA Area: 18.01 cm^2 LA Vol. Index: 38 ml/m^2 Left Ventricle LVIDd: 4.29 cm LV Septum Diastolic: 0.79 cm LV PW Diastolic: 1.03 cm LVOT Diameter: 2.23 cm Right Ventricle TAPSE: 1.78 cm Aorta Ao Root S of Debbie.: 3.4 cmAscending Aorta: 3.35 cm Doppler/Quantitative Measurements LVOT Peak Velocity: 0.95 m/s Peak Gradient: 3.59 mmHg Mean Velocity: 0.68 m/s Mean Gradient: 2.09 mmHg LVOT Diameter: 2.23 cmLVOT VTI: 16.27 cm LVOT Area: 3.91 cm^2LVOT SV:63.51 ml LVOT CO: 6.92 l/min LVOT CI: 3.16 l/min/m^2 Tricuspid Valve TR Velocity: 2.52 m/s TR Gradient: 25.48 mmHg Procedure Note Interface, External Ris In - 08/17/2018 5:26 PM CDT Transthoracic Echocardiography Report (TTE) Demographics Patient Name CLARICE MEJIA Date of Study 08/16/2018 Gender Male Visit Number [id number] Race Unknown Room Number 6A06 Number Date of 1955 Referring Physician Ralu Renee Age 63 year(s) Family Support Specialist Toyin Black [facility] Inspector Plating Jonitaina Stoll Interpreting Keiko Restrepo Physician Procedure Type of Study TTE procedure:2DECHO W DOPPLER(CW/PW/COLOR) (VIC) Indications:Shortness of breath. Clinical History CKD;DM;HLD;HTN;LIVER MASS;RESECTION LIVER HGB 10.3 HCT 31.4 % Contrast Medium: Definity. Height: 70 inches Weight: 101.15 kg (223 lbs) BSA: 2.19 m^2 BMI: 32 kg/m^2 HR: 109 bpm BP: 140/72 mmHg Summary The left ventricle is chamber size (by PSLAX dimension) is normal (male - LVIDd 4.2-5.8cm) . Normal LV wall thickness. All of the LV segments contract normally . Global LV systolic function normal . Estimated LVEF by qualitative assessment is normal (>60%) . Normal (cardiac index 2-3 L/min/m2) cardiac output state at rest is noted. Degree of diastolic dysfunction (LAP assessment) is inconclusive. Estimated peak systolic PA pressure is 30-35 mmHg . No significant pericardial effusion is visualized. Previous Study No prior exam available for comparison. Signature Findings Rhythm/BP Sinus tachyarrhythmia during the exam. Left Ventricle The left ventricle is chamber size (by PSLAX dimension) is normal (male - LVIDd 4.2-5.8cm) . Normal LV wall thickness. All of the LV segments contract normally . Global LV systolic function normal . Estimated LVEF by qualitative assessment is normal (>60%) . Normal (cardiac index 2-3 L/min/m2) cardiac output state at rest is noted. Degree of diastolic dysfunction (LAP assessment) is inconclusive. Left Atrium LA size is mildly enlarged (35-41 ml/m2) . Right Ventricle The right ventricular chamber size and systolic function are within normal limits. Right Atrium RA cavity size is normal . Aortic Valve Mild AoV cusp calcification. AoV cusp mobility is normal . Mitral Valve Mild MV leaflet thickening. Mild mitral annular calcification. Mild mitral regurgitation. Tricuspid Valve A trace of tricuspid regurgitation. Estimated peak systolic PA pressure is 30-35 mmHg . Pulmonic Valve Normal PV structure and function. Aorta Aortic root size (SInus of Valsalva diameter) is normal . Proximal ascending aorta size is normal . Pericardium No significant pericardial effusion is visualized. IVC/SVC/PA/PV/Pleural The estimated RA pressure by IVC dynamics 5-10mmHg . Chambers/Structures Left Atrium LA Volume: 83.22 ml LA Area: 18.01 cm^2 LA Vol. Index: 38 ml/m^2 Left Ventricle LVIDd: 4.29 cm LV Septum Diastolic: 0.79 cm LV PW Diastolic: 1.03 cm LVOT Diameter: 2.23 cm Right Ventricle TAPSE: 1.78 cm Aorta Ao Root S of Debbie.: 3.4 cm Ascending Aorta: 3.35 cm Doppler/Quantitative Measurements LVOT Peak Velocity: 0.95 m/s Peak Gradient: 3.59 mmHg Mean Velocity: 0.68 m/s Mean Gradient: 2.09 mmHg LVOT Diameter: 2.23 cm LVOT VTI: 16.27 cm LVOT Area: 3.91 cm^2 LVOT SV:63.51 ml LVOT CO: 6.92 l/min LVOT CI: 3.16 l/min/m^2 Tricuspid Valve TR Velocity: 2.52 m/s TR Gradient: 25.48 mmHg Performing Organization Address City/State/Zipcode Phone Number [facility] ECHO HEARTLAB MK[facility] CPACS Urinalysis w/Microscopic + Reflex to Culture (08/16/2018 2:58 PM CDT) Color, UA Yellow [facility] Clarity, UA Hazy [facility] Specific [place], UA 1.014 1.001 - 1.035 [facility] pH, UA 5.5 5.0 - 8.0 [facility] Protein, UA 30 mg/dL (A) Negative [facility] Glucose, UA 50 mg/dL (A) Negative [facility] Ketones, UA Negative Negative [facility] Bilirubin, UA Negative Negative [facility] Blood, UA Moderate (A) Negative [facility] Nitrite, UA Negative Negative [facility] Leukocytes, UA Moderate (A) Negative [facility] Urobilinogen, UA 0.2 0.2 - 1.0 mg/dL [facility] RBC, UA <1 /HPF [facility] WBC, UA 19 /HPF [facility] Bacteria, UA Moderate [facility] Mucus Rare [facility] Hyaline Casts, UA 3 /LPF [facility] Specimen Source [facility] Specimen Urine Performing Organization Address City/[facility] Phone Number [address] [address] [phone] [place] Lactic acid, venous, whole blood (08/16/2018 2:58 PM CDT)Only the most recent of3 resultswithin the time period is included. Lactate, Venous 1.8Comment: Specimen 0.5 - 2.2 mmol/L [facility] slightly hemolyzed [facility] Specimen Blood Narrative Performed At [facility] Effective 03/22/2016: Units/Reference Range Change New: 0.5-2.2 mmol/LPrevious: 5-20 mg/dL Performing Organization Address City/[facility] Phone Number [address] [address] [phone] [place] Sodium, random urine (08/16/2018 2:58 PM CDT) Sodium Urine 25 meq/L [facility] Specimen Urine Narrative Performed At [facility] Reference Range: No Normals Performing Organization Address City/[facility]/Zipcode Phone Number [address] [address] [phone] [place] Protein, random urine (08/16/2018 2:58 PM CDT) Protein, Urine 39 (H) 0 - 14 mg/dL [facility] Specimen Urine Performing Organization Address [facility] Phone Number [address] [address] [place] Creatinine, random urine (08/16/2018 2:58 PM CDT) Creatinine, Ur 137.8 mg/dL [facility] Specimen Urine Narrative Performed At [facility] Reference Range: No Normals Performing Organization Address [facility] Phone Number [address] [address] [place] Urine culture (08/16/2018 2:58 PM CDT) Result No growth [facility] Specimen Urine Performing Organization Address [facility] Phone Number [address] [address] [phone] [place] NM lung scan (V/Q) (08/16/2018 12:39 PM CDT) Specimen Narrative Performed At FINAL REPORT [facility] PROCEDURE: V/Q LUNG SCAN CPT CODE: [id number] INDICATION: Acute chest pain PROTOCOL: 10.0 mCi ofXe-133 gas was administered by inhalation. Rebreathing/washout images were obtained in the anterior and the posterior projections.4.2 mCi of Tc-99m MAA was then injected intravenously, and static perfusion images were obtained in multiple projections. FINDINGS: Ventilation: Initial tracer distribution is decreased in the right and left mid and lower lung perry. Washout proceeds normally. Perfusion:Tracer distribution is subsegmentally decreased in the right mid lung field anteriorly and nonsegmentally decreased in the left mid, left lower, right upper, and right lower lung perry. IMPRESSION: 1. Moderate probability of subacutepulmonary embolization in the right middle lobe. 2. Additional bilateral parenchymal abnormality. Signed: Hussein Mcgee MD Report Verified Date/Time:08/16/2018 13:16:03 Reading Location: [address] [employer] Reading Room Procedure Note Interface, External Ris In - 08/16/2018 1:18 PM CDT FINAL REPORT PROCEDURE: V/Q LUNG SCAN CPT CODE: [id number] INDICATION: Acute chest pain PROTOCOL: 10.0 mCi of Xe-133 gas was administered by inhalation. Rebreathing/washout images were obtained in the anterior and the posterior projections. 4.2 mCi of Tc-99m MAA was then injected intravenously, and static perfusion images were obtained in multiple projections. FINDINGS: Ventilation: Initial tracer distribution is decreased in the right and left mid and lower lung perry. Washout proceeds normally. Perfusion: Tracer distribution is subsegmentally decreased in the right mid lung field anteriorly and nonsegmentally decreased in the left mid, left lower, right upper, and right lower lung perry. IMPRESSION: 1. Moderate probability of subacute pulmonary embolization in the right middle lobe. 2. Additional bilateral parenchymal abnormality. Signed: Hussein Mcgee MD Report Verified Date/Time: 08/16/2018 13:16:03 Reading Location: [address] [facility] Reading Room Performing Organization Address City/State/Zipcode Phone Number [facility] Venous doppler legs bilateral (08/16/2018 8:55 AM CDT) Ejection Fraction [facility] ECHO HEARTLAB [facility] Specimen Impressions Performed At Right Impression [facility] ECHO HEARTLAB [facility] 1. There is no deep venous obstruction in the common femoral, profunda femoral, femoral, popliteal, posterior tibial or peroneal veins. 2. There is no superficial venous obstruction in the great saphenous vein. Left Impression 1. There is no deep venous obstruction in the common femoral, profunda femoral, femoral, popliteal, posterior tibial or peroneal veins. 2. There is no superficial venous obstruction in the great saphenous vein. Conclusions Summary Venous duplex imaging and compression of the bilateral lower extremities were performed. The veins were adequately visualized. The bilateral venous systems were patent and compressible with no evidence of thrombus. The venous Doppler waveforms were phasic with respiration . Signature Velocities are measured in cm/s ; Diameters are measured in cm Narrative Performed At PV LAB - Lower Extremities DVT Study [facility] ECHO HEARTLAB [facility] Demographics Patient NameCLARICE MEJIA Date of Study 08/16/2018 63 Visit [id number] Male of 1955 Number Referring Raul Brown Number [id number] Physician Family Support Specialist Kendall Sales. InterpretingJ. Anthony Quezada RVT, Joselito VAN, TAMMY Procedure Type of Study: Veins: Lower Extremities DVT Study, VENOUS DOPPLER LEG, BILATERAL. Indications for Study:Evaluate for DVT. Patient Status:STAT. Study Location:Portable. Technical Quality:Adequate visualization. Risk Factors History of Disease +---------+----+ + !Diagnosis!Date!Comments ! +---------+----+ + !Other!!ckd, dm, hld, liver mass ! +---------+----+ + Procedure Note Interface, External Ris In - 08/17/2018 7:15 AM CDT PV LAB - Lower Extremities DVT Study Demographics Patient Name CLARICE MEJIA Date of Study 08/16/2018 Age 63 Visit Number [id number] Gender Male Date of 1955 Number Referring [facility] Room Number [id number] Physician Family Support Specialist Kendall Sales. Interpreting Delano Quezada, TYLERT, ARS Physician , RPVI Procedure Type of Study: Veins: Lower Extremities DVT Study, VENOUS DOPPLER LEG, BILATERAL. Indications for Study:Evaluate for DVT. Patient Status:STAT. Study Location:Portable. Technical Quality:Adequate visualization. Risk Factors History of Disease +---------+----+ + !Diagnosis!Date!Comments ! +---------+----+ + !Other ! !ckd, dm, hld, liver mass ! +---------+----+ + Impressions Right Impression 1. There is no deep venous obstruction in the common femoral, profunda femoral, femoral, popliteal, posterior tibial or peroneal veins. 2. There is no superficial venous obstruction in the great saphenous vein. Left Impression 1. There is no deep venous obstruction in the common femoral, profunda femoral, femoral, popliteal, posterior tibial or peroneal veins. 2. There is no superficial venous obstruction in the great saphenous vein. Conclusions Summary Venous duplex imaging and compression of the bilateral lower extremities were performed. The veins were adequately visualized. The bilateral venous systems were patent and compressible with no evidence of thrombus. The venous Doppler waveforms were phasic with respiration . Signature Velocities are measured in cm/s ; Diameters are measured in cm Performing Organization Address City/State/[facility] Phone Number [facility] E[facility] HEARTLAB [facility] Blood gas, venous (08/16/2018 3:09 AM CDT) pH, Paul 7.48 (H) 7.32 - 7.42 [facility] pCO2, Paul 45 41 - 51 mmHg [facility] pO2, Paul 76 (H) 25 - 40 mmHg [facility] O2 Sat, Paul 96.0 (H) 40.0 - 70.0 % [facility] HCO3, Paul 33 (H) 21 - 29 mmol/L [facility] Base Excess, Paul 8.3 (H) -2.0 - 3.0 mmol/L [facility] Patient Temperature 37.0 C [facility] FIO2 40.0 % [facility] Specimen Blood Performing Organization Address City/State/Zipcode Phone Number [facility] [address] [place] [address] [phone] CENTER XR abdomen / KUB 1 view (08/16/2018 1:21 AM CDT) Specimen Narrative Performed At FINAL REPORT [facility] Abdomen one view Comparison: None. Reason for exam:abdominal distention, worsened respiratory status Findings: Supine view of the abdomen was obtained. There are surgical clips in the right upper quadrant. There are surgical skin marie overlying the right mid and lower abdomen. There is gaseous distention of small and large bowel loops favored to represent an ileus. There is a partially imaged central venous catheter with tip in the right atrium. There are bibasilar airspace opacities which may represent atelectasis and/or pneumonia. There are degenerative changes of the lower lumbar spine. Signed: Burton Acevedo MD Report Verified Date/Time:08/16/2018 02:06:47 Reading Location: [facility] C013Y CT Body Reading Room Procedure Note Interface, External Ris In - 08/16/2018 2:09 AM CDT FINAL REPORT Abdomen one view Comparison: None. Reason for exam: abdominal distention, worsened respiratory status Findings: Supine view of the abdomen was obtained. There are surgical clips in the right upper quadrant. There are surgical skin marie overlying the right mid and lower abdomen. There is gaseous distention of small and large bowel loops favored to represent an ileus. There is a partially imaged central venous catheter with tip in the right atrium. There are bibasilar airspace opacities which may represent atelectasis and/or pneumonia. There are degenerative changes of the lower lumbar spine. Signed: Burton Acevedo MD Report Verified Date/Time: 08/16/2018 02:06:47 Reading Location: [facility] B1 C013Y CT Body Reading Room Performing Organization Address City/[facility] [place] [facility] Phone Number [facility] Blood culture (08/15/2018 10:46 PM CDT)Only the most recent of2 resultswithin the time period is included. Result No growth in 5 days [facility] Specimen Blood Performing Organization Address [facility] [place] [facility] Phone Number [address] [address] [phone] [place] POCT-HEMATOCRIT (08/15/2018 10:40 PM CDT)Only the most recent of2 resultswithin the time period is included. POC-Hematocrit 29 (L)Comment: TESTED AT 40 - 50 % [address] [address] Specimen Blood Performing Organization Address [facility] Phone Number [address] [address] [place] POCT-HEMOGLOBIN (08/15/2018 10:40 PM CDT)Only the most recent of2 resultswithin the time period is included. POC-Hemoglobin 9.9 (L)Comment: TESTED AT 13.0 - 16.8 g/dL [address] [address]HMUMSX AT [address] [address] Specimen Blood Performing Organization Address [facility] Phone Number [address] [address] [place] POCT-GLUCOSE (08/15/2018 10:40 PM CDT)Only the most recent of2 resultswithin the time period is included. POC-Glucose 257 (H)Comment: TESTED AT 70 - 110 mg/dL [address] [address] Specimen Blood Performing Organization Address [facility] Phone Number [address] [address] [place] POC-Sodium (08/15/2018 10:40 PM CDT)Only the most recent of2 resultswithin the time period is included. POC-Sodium 133 (L)Comment: TESTED AT 135 - 148 meq/L [address] [address] Specimen Blood Performing Organization Address [facility] Phone Number [address] [address] [phone] [place] POC-Potassium (08/15/2018 10:40 PM CDT)Only the most recent of2 resultswithin the time period is included. POC-Potassium 3.8Comment: TESTED AT [facility] 3.6 - 5.5 meq/L [address] [address] Specimen Blood Performing Organization Address [facility] Phone Number [address] [address] [place] POC-Calcium ionized (08/15/2018 10:40 PM CDT)Only the most recent of2 resultswithin the time period is included. POC-Calcium Ionized 1.05 (L)Comment: 1.12 - 1.27 mmol/L [facility] TESTED AT [address] [address] Specimen Blood Performing Organization Address [facility] Phone Number [address] [address] [place] POC-Blood gases, arterial (08/15/2018 10:40 PM CDT)Only the most recent of2 resultswithin the time period is included. Temp. Celsius-POC 38.3 [facility] FIO2-POC Comment: TESTED AT [address] [address] pH, Arterial-POC 7.423 7.350 - 7.450 [facility] PCO2, Arterial-POC 30.6 (L) 35.0 - 45.0 mm Hg [facility] PO2, Arterial-POC 69.0 (L) 80.0 - 90.0 mm Hg [facility] SO2, Arterial-POC 93.0 (L) 96.0 - 97.0 % [facility] HCO3, Arterilal-POC 19.8 (L) 21.0 - 29.0 meq/L [facility] BE, Arterial-POC -4.0 (L) -2.0 - 3.0 meq/L [facility] Specimen Blood Performing Organization Address [facility] Phone Number [address] [phone] CENTER POC-Lactic Acid, Arterial (08/15/2018 10:35 PM CDT) POC-Lactic Acid, 1.6 (H)Comment: 0.4 - 1.3 mmol/L [facility] Arterial TESTED AT [address] [address] Specimen Blood Performing Organization Address [facility] [place] Phone Number [address] [address] [phone] CENTER Potassium-Stat Lab (08/14/2018 1:11 PM CDT)Only the most recent of3 resultswithin the time period is included. Potassium 4.1 3.6 - 5.5 meq/L [facility] Specimen Blood, Arterial Performing Organization Address City/[facility] [place] Phone Number [address] [address] CENTER Sodium Na-Stat Lab (08/14/2018 1:11 PM CDT)Only the most recent of3 resultswithin the time period is included. Sodium 139 135 - 148 meq/L [facility] Specimen Blood, Arterial Performing Organization Address City/[facility]/Zipcode Phone Number [facility] [address] [place], [place] [address] [phone] CENTER Glucose-Stat Lab (08/14/2018 1:11 PM CDT)Only the most recent of3 resultswithin the time period is included. Glucose 210 (H) 70 - 110 mg/dL [facility] Specimen Blood, Arterial Performing Organization Address City/[facility]/Zipcode Phone Number [facility] [address] [place], [place] [phone] [place] HGB/HCT (H&H)-Stat Lab (08/14/2018 1:11 PM CDT)Only the most recent of3 resultswithin the time period is included. Hemoglobin 11.0 (L) 13.0 - 16.8 g/dL [facility] Hematocrit 32.0 (L) 40.0 - 50.0 % [facility] Specimen Blood, Arterial Performing Organization Address [facility] Phone Number [address] [address] [phone] [place] Tissue Exam (08/14/2018 9:24 AM CDT) Case Report Surgical Pathology Report Case: [id number] [facility] Authorizing Provider:Víctor Sam MDCollected: 08/14/2018 0924 [facility] MEDICAL Ordering Location: [facility] PERIOPERATIVE Received: 08/14/2018 1156 CENTER SERVICES Pathologist: Maricruz Olivier MD Specimens: A) - Gallbladder B) - Liver, LIVER SEGMENT 6 - FROZEN ON INKED EDGE WITH STITCH C) - Liver, LIVER - ADDITIONAL SPECIMEN - FROZEN ON THE SURFACE WITH WHITE STITCH D) - Liver, LIVER SEGMENT 4B ADDENDUM A PD-L1 study result from [facility] is available on 2018, performed on designated liver tissue, as requested by Dr. David Srinivasan and received by Dr. Tex Quezada 05/26/2019.. [facility] The study is NEGATIVE; CENTER see entire scanned report from 05/26/2019, and FAXed data from 05/31/2019.. DIAGNOSIS A. GALLBLADDER, CHOLECYSTECTOMY: [facility] - CHRONIC CHOLECYSTITIS, CHOLESTEROLOSIS [facility] B. LIVER, SEGMENT 5/6, HEPATIC SEGMENTECTOMY: - CHOLANGIOCARCINOMA, MODERATELY DIFFERENTIATED, LIMITED TO THE PARENCHYMA, MULTIPLE NODULES, 0.5 TO 4.2 X 3.5 2.5CM. - LOW RESPONSE TO THERAPY, EXTENSIVE VIABLE TUMOR - SURGICAL MARGIN POSITIVE FOR CARCINOMA (MARGIN DESIGNATED BY DR. SAM, INTRAOPERATIVELY) - NON-NEOPLASTIC LIVER PARENCHYMA WITH MILD TO MODERATE STEATOSIS - SEE SYNOPTIC REPORT C. LIVER, LABELED "ADDITIONAL RESECTION", TO PARTIAL RIGHT HEPATECTOMY: - LIVER PARENCHYMA WITH CAUTERY ARTIFACT AT PREVIOUS RESECTION SITE - NEW SURGICAL MARGIN (MARGIN DESIGNATED BY DR. SAM INTRAOPERATIVELY ) IS NEGATIVE FOR MALIGNANCY D. LIVER, SEGMENT 4B, HEPATIC SEGMENTECTOMY: - LIVER PARENCHYMA WITH MILD TO MODERATE MICRO AND MACROVESICULAR STEATOSIS - NEGATIVE FOR MALIGNANCY Signing Pathologist Direct Phone Line: [phone] COMMENT Immunohistochemical stains were performed on block B5, with the following results: [facility] - CK 7, CK 19, MOC-31, CAM 5.2: positive on tumor cells, negative on non- neoplastic liver parenchyma [facility] - CEA: weak and patchy positivity on tumor cells, negative in non-neoplastic liver parenchyma CENTER - Arginase, Hepatocyte Specific: negative in tumor, positive in non- neoplastic liver parenchyma - CK 20, Glypican-3: negative. This findings support the diagnosis of cholangiocarcinoma. SYNOPTIC REPORT INTRAHEPATIC BILE DUCTS(Bile Duct IH - All Specimens) [facility] SPECIMEN Procedure:Partial hepatectomy TUMOR Histologic Type:Intrahepatic cholangiocarcinoma Histologic Grade:G2: Moderately differentiated Tumor Focality:Multiple (locations): Segment 6, multiple masses Tumor Size:Greatest dimension in Centimeters (cm): 4.2 Centimeters (cm) Additional Dimension in Centimeters (cm):2.5 Centimeters (cm ) Additional Dimension in Centimeters (cm):3.5 Centimeters (cm ) Tumor Extent: Tumor Extension:Tumor confined to hepatic parenchyma Tumor Growth Pattern:Mass-forming Accessory Findings: Lymphovascular Invasion:Not identified Perineural Invasion:Not identified MARGINS Hepatic Parenchymal Margin:Uninvolved by invasive carcinoma Distance of Invasive Carcinoma from Margin:2.0 Centimeters ( cm) : Other Margin:new/second parenchymal margin Margin Status:Uninvolved by invasive carcinoma LYMPH NODES Regional Lymph Nodes:No lymph nodes submitted or found PATHOLOGIC STAGE CLASSIFICATION (pTNM, AJCC 8th Edition) TNM Descriptors:y (post-treatment) Primary Tumor (pT):pT2 Regional Lymph Nodes (pN):pNX ADDITIONAL FINDINGS Additional Pathologic Findings:Steatosis CPT Code(s) 46831 x 3, 71025, 70458 x 2, [facility] 76824 x 3; 90364 x 1; 88783 x9 [facility] CLINICAL HISTORY Cholangiocarcinoma, treated [facility] with chemotherapy. [facility] SPECIMEN SOURCE A. Gallbladder. B. Liver [facility] segment 6. C. Liver additional [facility] specimen. D. Liver segment 4B CENTER GROSS DESCRIPTION A. Received in formalin labeled "gallbladder" is a cholecystectomy product measuring 6.5 x 2.5 x 1.5 cm. The specimen is received open with disruption along the hepatic surface. The specimen is opened t [facility] o reveal a velvety mucosa. No stones or masses are identified in the lumen. The wall thickness is 0.2 cm in average. No masses or infiltrations are identified. Senior Dentist sections are submitted as f [facility] ollows: A1, cystic duct margin; A2, sales solutions representative sections neck to body, body to fundus; A3, sales solutions representative sections of body of the gallbladder with ragged area. CENTER B. Received fresh for intraoperative consultation labeled "liver segment 6" is a product of a hepatic segmentectomy, 89.5 gm and 8.0 x 5.0 x 4.5 cm, partially cauterized. The specimen is received with two stitches placed in one of the cauterized cut surfaces. The surface marked with the stitches is inked orange. The rest of the cauterized surface is marked with green ink. On sectioning, the liver parenchyma is diffusely infiltrated by multiple white-mckeon solid masses, well circumscribed, ranging from 0.5 cm in largest dimension to 4.2 x 2.5 x 3.5 cm. The tumor appears to be extend to the cauterized surface marked with stitches and also abutting the liver capsule. The rest of the liver parenchyma appears black-brown and dusky. Senior Dentist sections are submitted as follows. Section code: FSB1 and FSB2, frozen section of cauterized surface marked as margin (marked with stitch and ink per surgeon); B3, B4, adjacent sections of liver parenchyma, closest to the margin; B5 to B 9, one complete transverse section of liver parenchyma with larger mass; B10 to B12, additional sections of liver parenchyma and smaller nodules; B13 and B14 , sales solutions representative sections of additional grossly uninvolved liver parenchyma. C. Received fresh for intraoperative consultation labeled "liver additional specimen frozen on the surface with white stitch" is a 18.1 gm segment of liver measuring 4.5 x 2.5 x 2.5 cm. A white stitch i s placed in one of the cauterized surfaces. This cauterized surface with stitch is inked orange for identification. The remaining cauterized surface is inked blue (possible previous resection margin). T he specimen is serially sectioned to reveal a mckeon-brown to yellow liver parenchyma with no masses identified. Senior Dentist sections are submitted as follows: cassette FSC1 to FSC3, new margin; C4 and C5, sales solutions representative sections of possible previous resection margin; C6, 7 and 8, additional sections of liver parenchyma (adjacent to new margin, consecutive sections). D. Received in formalin labeled "liver segment 4B" is a segment of liver weighing 3.5 gm, measuring 2.0 x 2.0 x 1.9 cm, triangular-shape and partially cauterized surface. The rest of the capsule is smoo th and glistening. The cauterized area is inked black. The specimen is serially sectioned to reveal brown granular liver parenchyma with no masses identified. The specimen is submitted entirely in five cassettes. DH/pl INTRAOPERATIVE FROZEN SECTION DIAGNOSIS: [facility] AMaryam CONSULTATION B. FSB1, LIVER, SEGMENT 6, PARTIAL HEPATECTOMY: [facility] - POSITIVE FOR MALIGNANCY CONSISTENT WITH CHOLANGIOCARCINOMA CENTER Reported by Dr. Olivier at 12:33 p.m. C. FSC1, LIVER, ADDITIONAL PARENCHYMA FOR FROZEN, PARTIAL HEPATECTOMY: - NEGATIVE FOR MALIGNANCY Reported by Dr. Olivier at 1:33 p.m. MICROSCOPIC DESCRIPTION A-D. Performed. [facility] SPECIAL STUDIES The following special studies were performed on this case and the interpretation is incorporated in the diagnostic report above: [facility] Immunohistochemical stains performed on block B5: [facility] Arginase, CAM5.2, CDX2, CEA, CK7, CK19, CK20, Glypican-3, Hep-Par 1 and MOC- 31. CENTER The immunohistochemistry test was developed and its performance characteristics determined by [facility]. It has not been cleared or approved by the U.S. Food and Drug Administration. The FDA has determined that such clearance or approval is not necessary. The test is used for clinical purposes. It should not be regarded as investigational or for research. This laboratory is certified under the Clinical Laboratory Improvement Amendments of 1988 (CLIA-88) as qualified to perform high complexity clinical laboratory testing. Specimen Tissue Tissue - Liver structure (body structure) Tissue - Liver structure (body structure) Tissue - Liver structure (body structure) Narrative Performed At Performing Organization Address City/State/Zipcode Phone Number [facility] MEDICAL [address] [place] [address] CENTER ANESTHESIA SPINAL BLOCK (08/14/2018 8:36 AM CDT) Narrative Performed At Juany Flores MD 08/14/20188:36 AM Spinal Block Patient location during procedure: OR Start time: 08/14/2018 8:16 AM End time: 08/14/2018 8:18 AM Reason for block: procedure for pain, at surgeon's request and post-op pain management Staffing Anesthesiologist: JUANY FLORES Performed by: anesthesiologist Preanesthetic Checklist Completed: patient identified, site marked, surgical consent, pre-op evaluation, timeout performed, IV checked, risks and benefits discussed and monitors and equipment checked Spinal Block Patient position: sitting Prep: Betadine Patient monitoring: heart rate, monitor and storage bin tender and continuous pulse ox Location: L3-4 Injection technique: single-shot Needle Needle type: pencil-tip Needle gauge: 25 G Needle length: 10 cm Assessment Sensory level: T10 Events: cerebrospinal fluid Additional Notes Pt tolerated the procedure well. Procedure Note Juany Flores MD - 08/14/2018 8:35 AM CDT Spinal Block Patient location during procedure: OR Start time: 08/14/2018 8:16 AM End time: 08/14/2018 8:18 AM Reason for block: procedure for pain, at surgeon's request and post-op pain management Staffing Anesthesiologist: JUANY FLORES Performed by: anesthesiologist Preanesthetic Checklist Completed: patient identified, site marked, surgical consent, pre-op evaluation , timeout performed, IV checked, risks and benefits discussed and monitors and equipment checked Spinal Block Patient position: sitting Prep: Betadine Patient monitoring: heart rate, monitor and storage bin tender and continuous pulse ox Location: L3-4 Injection technique: single-shot Needle Needle type: pencil-tip Needle gauge: 25 G Needle length: 10 cm Assessment Sensory level: T10 Events: cerebrospinal fluid Additional Notes Pt tolerated the procedure well. TRANSFUSION SERVICE REPORT - SCAN (07/31/2018 5:54 PM CDT) Narrative Performed At Type and screen, automated (07/30/2018 10:59 AM CDT) ABO/RH AUTOMATED (BEAKER) AB POSITIVE [facility] Ab Scrn NEGATIVE [facility] Specimen Blood Performing Organization Address [facility] Phone Number [address] [address] BUN and Creatinine (07/30/2018 10:59 AM CDT) BUN 17 7 - 21 mg/dL [facility] Creatinine 1.31 (H)Comment: Specimen 0.57 - 1.25 mg/dL [facility] slightly hemolyzed [facility] EGFR 55Comment: ESTIMATED GFR IS mL/min/1.73 sq m [facility] NOT ACCURATE CREATININE [facility] CENTER CLEARANCE IN PREDICTING GLOMERULAR FILTRATION RATE. ESTIMATED GFR IS NOT APPLICABLE FOR DIALYSIS PATIENTS. Specimen Blood Performing Organization Address [facility] Phone Number [address] [address] [phone] CENTER Platelet count (07/30/2018 10:59 AM CDT) Platelets 208 150 - 450 K/CU MM [facility] Specimen Blood Performing Organization Address [facility] Phone Number [address] [address] [phone] CENTER Hemoglobin (07/30/2018 10:59 AM CDT) Hemoglobin 14.3 13.7 - 17.5 GM/DL [facility] Specimen Blood Performing Organization Address City/[facility]/Zipcode Phone Number [facility] [address] [place], [place] [phone] CENTER Glucose (07/30/2018 10:59 AM CDT) Glucose 151 (H) 70 - 105 mg/dL [facility] Specimen Blood Performing Organization Address City/[facility] Phone Number [facility] [address] [place] [address] CENTER after 06/16/2018 Insurance Payer Benefit Plan / Subscriber ID Type Phone Address Group BLUE CROSS/BLUE BCBS OS xxxxxxxxxxxx PPO [phone] [address] [employer] [place] [address] Advance Directives For more information, please contact:[address] [phone] Code Status Date Activated Date Inactivated Comments Full Code 08/14/2018 7:13 AM 08/23/2018 5:59 PM This code status was determined by: Patient
[2019-06-17] MEDS ORDERED: NA CHLORIDE 0.9% 1,000 ML ONE (06:14)
[2019-06-17 06:25] LABS: Absolute Lymphocytes (CBC) 0.4 K/uL (0.7-4.9); Basophils % 0.1 % (0-1.3); Hematocrit 37.7 % (39.6-49.0); Lymphocytes % 4.3 % (15.3-44.8); MPV 8.3 fL (7.6-11.3); RBC Red Blood Cell Count 4.51 M/uL (4.33-5.43)
[2019-06-17 06:47] LABS: ALT/SGPT 57 U/L (12-78); AST/SGOT 30 U/L (15-37); Albumin 2.3 g/dL (3.4-5.0); Alkaline Phosphatase 135 U/L (45-117); BUN Blood Urea Nitrogen 63 mg/dL (7-18); Bicarbonate 18 mmol/L (21-32); Bilirubin Direct 0.2 mg/dL (0-0.2); Bilirubin Total 0.4 mg/dL (0.2-1.0); Creatine Phosphokinase 57 U/L (39-308); Glucose Level 145 mg/dL (74-106); Lipase 197 U/L (73-393); Potassium 4.7 mmol/L (3.5-5.1); Protein, Total 4.8 g/dL (6.4-8.2); Sodium Level 139 mmol/L (136-145); Troponin (Emerg Dept Use Only) < 0.02 ng/mL (0.0-0.045)
[2019-06-17 06:51] LABS: Protime INR 0.79
--- NOTE | 2019-06-17 07:08 | EDPHYS ---
Physician Documentation [facility] Name: Seth Oconnor Age: 64 yrs Sex: Male : 1955 Arrival Date: 06/17/2019 Time: 05:25 Bed 4 Private MD: ED Physician Patrick Dominguez HPI: 06/17 05:56 This 64 yrs old Male presents to ER via EMS with complaints of General Weakness, tw4 HYPOTENSION. 05:56 The patient presents with generalized weakness. Onset: The symptoms/episode tw4 began/occurred just prior to arrival. Context: occurred at home, occurred while the patient was getting up from bed. Modifying factors: The symptoms are alleviated by nothing, the symptoms are aggravated by movement of head, standing up. Associated signs and symptoms: The patient has no apparent associated signs or symptoms. Severity of symptoms: At their worst the symptoms were moderate. The patient has been recently seen by a physician: yesterday, Gn[facility]. Historical: - Allergies: 05:37 No Known Allergies; ak1 - Home Meds: 05:37 dexamethasone 4 mg Oral tab 1 tab once daily [Active]; famotidine 20 mg Oral tab 1 tab ak1 2 times per day [Active]; simethicone 80 mg Oral chew every 6 hours for Flatulence [Active]; ondansetron 8 mg oral TbDL 1 tab every 8 hours [Active]; Compazine 5 mg Oral tab 1 tab every 6 hours for Cancer Chemotherapy-Induced Nausea and Vomiting [Active]; omega-3 acid ethyl esters 1 gram oral cap 2 caps at bedtime [Active]; gabapentin 100 mg oral cap 2 caps at bedtime [Active]; tramadol 50 mg Oral tab 1 tab 2 times daily as needed for Pain [Active]; metoprolol succinate 25 mg oral Tb24 1 tab once daily for Hypertension [Active]; allopurinol 100 mg Oral tab 1 tab once daily [Active]; atorvastatin 40 mg oral tab 1 tab once daily [Active]; insulin aspart subcutaneous sliding scale 3 times daily before meals subcutaneous [Active]; Lantus 50units Sub-Q nightly [Active]; Flomax 0.4 mg Oral cp24 1 cap once daily [Active]; - PMHx: 05:37 Diabetes - IDDM; Hypertension; Cancer; ak1 - PSHx: 05:37 11/22 liver removal 2018; ak1 - Immunization history:: Adult Immunizations unknown. - Social history:: Smoking status: unknown. - Ebola Screening: : No symptoms or risks identified at this time. ROS: 05:56 Constitutional: Negative for fever, chills, and weight loss, Eyes: Negative for injury, tw4 pain, redness, and discharge, Cardiovascular: Negative for chest pain, palpitations, and edema, Respiratory: Negative for shortness of breath, cough, wheezing, and pleuritic chest pain, Abdomen/GI: Negative for abdominal pain, nausea, vomiting, diarrhea, and constipation, Back: Negative for injury and pain, MS/Extremity: Negative for injury and deformity, Skin: Negative for injury, rash, and discoloration. 05:56 Neuro: Positive for weakness. Exam: 05:56 Head/Face: Normocephalic, atraumatic. tw4 05:56 Cardiovascular: Regular rate and rhythm with a normal S1 and S2. No gallops, murmurs, or rubs. Normal PMI, no JVD. No pulse deficits. Respiratory: Lungs have equal breath sounds bilaterally, clear to auscultation and percussion. No rales, rhonchi or wheezes noted. No increased work of breathing, no retractions or nasal flaring. Abdomen/GI: Soft, non-tender, with normal bowel sounds. No distension or tympany. No guarding or rebound. No evidence of tenderness throughout. Back: No spinal tenderness. No costovertebral tenderness. Full range of motion. MS/ Extremity: Pulses equal, no cyanosis. Neurovascular intact. Full, normal range of motion. Neuro: Awake and alert, GCS 15, oriented to person, place, time, and situation. Cranial nerves II-XII grossly intact. Motor strength 5/5 in all extremities. Sensory grossly intact. Cerebellar exam normal. Normal gait. 05:56 Constitutional: The patient appears listless. Vital Signs: 05:25 BP 97 / 59 RA Supine (auto/reg); Pulse 83; Resp 16; Temp 97.9(A); Pulse Ox 100% on R/A; ak1 Weight 79.38 kg (R); Height 5 ft. 10 in. (177.80 cm) (R); Pain 0/10; 05:37 BP 97 / 64; Pulse 76; Resp 12; Pulse Ox 100% on R/A; ak1 06:25 BP 98 / 57; Pulse 76; Resp 16; Pulse Ox 100% on R/A; tr5 07:44 BP 99 / 64; Pulse 73; Resp 16 S; Pulse Ox 100% on R/A; sg 08:15 BP 92 / 50; Pulse 80; Resp 17; Temp 97.9; Pulse Ox 99% on R/A; sg 05:25 Body Mass Index 25.11 (79.38 kg, 177.80 cm) ak1 MDM: 05:28 Patient medically screened. tw4 07:07 Differential diagnosis: cardiac arrhythmia, vertigo. Data reviewed: vital signs, nurses tw4 notes. Data interpreted: Pulse oximetry: Interpretation: normal. Counseling: I had a detailed discussion with the patient and/or guardian regarding: the historical points, exam findings, and any diagnostic results supporting the discharge/admit diagnosis. Physician consultation: James Cristobal MD was contacted at 07:05, regarding admission, to the telemetry unit. patient's condition, and will see patient in inpatient room. 06/17 05:41 Order name: D-Dimer 06/17 05:41 Order name: Basic Metabolic Panel; Complete Time: 06:55 06/17 06:56 Interpretation: Normal except: CL 109; GLUC 145; CO2 18; BUN 63; CRE 2.28; GFR 29. 06/17 05:41 Order name: Blood Culture Adult (2) 06/17 05:41 Order name: CBC with Diff 06/17 05:41 Order name: Ckmb; Complete Time: 06:55 06/17 06:56 Interpretation: Within normal limits: CKMB 2.0. 06/17 05:41 Order name: CPK; Complete Time: 06:55 06/17 06:56 Interpretation: Within normal limits: CPK 57. 06/17 05:41 Order name: Lactate; Complete Time: 06:55 06/17 06:56 Interpretation: Normal except: LAC 3.3. 06/17 05:41 Order name: LFT's; Complete Time: 06:55 06/17 06:56 Interpretation: Normal except: ALK 135; TP 4.8; ALB 2.3; A/G 0.9. 06/17 05:41 Order name: Lipase; Complete Time: 06:55 06/17 06:57 Interpretation: Within normal limits: LIP 197. 06/17 05:41 Order name: Procalcitonin 06/17 05:41 Order name: Protime (+inr) 06/17 05:41 Order name: Ptt, Activated 06/17 05:41 Order name: Troponin (emerg Dept Use Only); Complete Time: 06:55 06/17 06:57 Interpretation: Within normal limits: TROPED < 0.02. 06/17 05:41 Order name: Urine Microscopic Only 06/17 05:41 Order name: Chest Single View XRAY 06/17 05:41 Order name: Accucheck; Complete Time: 07:01 06/17 05:41 Order name: Cardiac monitoring; Complete Time: 05:42 06/17 05:41 Order name: EKG - Nurse/Tech; Complete Time: 06:09 06/17 05:41 Order name: IV Saline Lock - Large Bore; Complete Time: 06:09 06/17 05:41 Order name: Labs collected and sent; Complete Time: 06:09 06/17 05:41 Order name: O2 Per Protocol; Complete Time: 05:42 06/17 05:41 Order name: O2 Sat Monitoring; Complete Time: 05:42 06/17 08:11 Order name: CBC Smear Scan EDMS EC:12 Rate is 78 beats/min. Rhythm is regular. QRS [place] is Normal. MA interval is normal. QRS tw4 interval is normal. QT interval is prolonged at 483 msec. No Q waves. T waves are Normal. No ST changes noted. Clinical impression: Abnormal EKG without significant change. Interpreted by me. Reviewed by me. Administered Medications: 06:10 Drug: NS 0.9% (30 ml/kg) 30 ml/kg Route: IV; Rate: bolus; Site: right hand; tr5 07:40 Drug: LevaQUIN 500 mg Volume: 100 ml; Route: IVPB; Infused Over: 60 mins; Site: Port-a-cath; 08:32 Follow up: Response: No adverse reaction; IV Status: Completed infusion sg 08:35 Drug: Rocephin - (cefTRIAXone) 1 grams Route: IVPB; Infused Over: 30 mins; Site: Port-a-cath; Point of Care Testing: Blood Glucose: 07:01 Blood Glucose: 144 mg/dL; lp1 07:01 Blood Glucose: 144 mg/dL; lp1 Ranges: Critical Glucose Levels:Adult <50 mg/dl or >400 mg/dl <40 mg/dl or >180 mg/dl Disposition: 06/17/19 07:07 Hospitalization ordered by James Cristobal for Inpatient Admission. Preliminary diagnosis are Sepsis due to other specified staphylococcus, near syncope. - Bed requested for Telemetry/MedSurg (Inpatient). - Status is Inpatient Admission. bd - Condition is Stable. - Problem is new. - Symptoms have improved. UTI on Admission? No Signatures: Dispatcher [employer] EDMS Cristine Viera Diana, RN RN Zan Greenwood, RN RN Danitza Burnett, RN HENOK Mary Ann Peña, RN RN ak1 Patrick Dominguez MD MD tw4 Devang Rivera RN RN tr5 Corrections: (The following items were deleted from the chart) 08:03 07:07 Hospitalization Ordered by James Cristobal MD for Inpatient Admission. Preliminary diagnosis is Sepsis due to other specified staphylococcus; near syncope. Bed requested for Telemetry/MedSurg (Inpatient). Status is Inpatient Admission. Condition is Stable. Problem is new. Symptoms have improved. UTI on Admission? No. tw4 08:46 08:03 06/17/2019 07:07 Hospitalization Ordered by James Cristobal MD for Inpatient bd Admission. Preliminary diagnosis is Sepsis due to other specified staphylococcus; near syncope. Bed requested for Telemetry/MedSurg (Inpatient). Status is Inpatient Admission. Condition is Stable. Problem is new. Symptoms have improved. UTI on Admission? No. dw
--- NOTE | 2019-06-17 07:08 | ER ---
Nurse's Notes [facility] Name: Seth Oconnor Age: 64 yrs Sex: Male : 1955 Arrival Date: 06/17/2019 Time: 05:25 Bed 4 Private MD: Diagnosis: Sepsis due to other specified staphylococcus;near syncope Presentation: 06/17 05:26 Presenting complaint: EMS states: pt discharged from [facility] yesterday 06/16/19 after ak1 having 1st chemo treatment . pt has caner of the bile duct and abd. pt with generalized weakness today, falling once earlier with abrasion to left knee. pt stated to EMS he went to restroom and did not have the strength to get back to bed, denies falling this morning. Transition of care: patient was not received from another setting of care. Onset of symptoms was June 17, 2019. Risk Assessment: Do you want to hurt yourself or someone else? Patient reports no desire to harm self or others. Initial Sepsis Screen: Does the patient meet any 2 criteria? No. Patient's initial sepsis screen is negative. Does the patient have a suspected source of infection? No. Patient's initial sepsis screen is negative. Care prior to arrival: Medication(s) given: Normal saline infusion, 350mL to 22g in Left hand. IV initiated. 22 GA, in the left hand. 05:26 Method Of Arrival: EMS: [facility] ak1 05:26 Acuity: LONNY 2 ak1 05:41 Note pt stated he did not take his metoprolol last night. ak1 Triage Assessment: 05:37 General: Appears in no apparent distress. ill, Behavior is calm, cooperative. ak1 05:40 Pain: Denies pain. ak1 Historical: - Allergies: 05:37 No Known Allergies; ak1 - Home Meds: 05:37 dexamethasone 4 mg Oral tab 1 tab once daily [Active]; famotidine 20 mg Oral tab 1 tab ak1 2 times per day [Active]; simethicone 80 mg Oral chew every 6 hours for Flatulence [Active]; ondansetron 8 mg oral TbDL 1 tab every 8 hours [Active]; Compazine 5 mg Oral tab 1 tab every 6 hours for Cancer Chemotherapy-Induced Nausea and Vomiting [Active]; omega-3 acid ethyl esters 1 gram oral cap 2 caps at bedtime [Active]; gabapentin 100 mg oral cap 2 caps at bedtime [Active]; tramadol 50 mg Oral tab 1 tab 2 times daily as needed for Pain [Active]; metoprolol succinate 25 mg oral Tb24 1 tab once daily for Hypertension [Active]; allopurinol 100 mg Oral tab 1 tab once daily [Active]; atorvastatin 40 mg oral tab 1 tab once daily [Active]; insulin aspart subcutaneous sliding scale 3 times daily before meals subcutaneous [Active]; Lantus 50units Sub-Q nightly [Active]; Flomax 0.4 mg Oral cp24 1 cap once daily [Active]; - PMHx: 05:37 Diabetes - IDDM; Hypertension; Cancer; ak1 - PSHx: 05:37 11/22 liver removal 2017; ak1 - Immunization history:: Adult Immunizations unknown. - Social history:: Smoking status: unknown. - Ebola Screening: : No symptoms or risks identified at this time. Screenin:39 Abuse screen: Denies threats or abuse. Denies injuries from another. Nutritional ak1 screening: No deficits noted. Tuberculosis screening: No symptoms or risk factors identified. Fall Risk Fall in past 12 months (25 points). Gait- Weak (10 pts.). Assessment: 06:22 General: Appears in no apparent distress. Behavior is calm, cooperative, appropriate tr5 for age. Pain: Denies pain. 06:22 Neuro: Level of Consciousness is awake, alert, obeys commands, Oriented to person, tr5 place, time, Donkey Engine Firer/Fireman are equal bilaterally Moves all extremities. Reports weakness. Cardiovascular: Heart tones present Bruits absent Capillary refill < 3 seconds Pulses are all present. Edema is absent. Respiratory: Airway is patent Trachea midline Respiratory effort is even, unlabored, Respiratory pattern is regular, symmetrical, Breath sounds are clear bilaterally. GI: Abdomen is flat, Bowel sounds present X 4 quads. : No signs and/or symptoms were reported regarding the genitourinary system. EENT: No signs and/or symptoms were reported regarding the EENT system. Derm: Skin is intact. Derm:. Musculoskeletal: Capillary refill < 3 seconds, Range of motion: intact in all extremities. 07:13 Reassessment: report given to Zan Kinsey RN. lp1 07:18 Reassessment: phlebotomy at bedside, obtained pedi blood culture at this time. sg 08:00 Reassessment: Patient appears in no apparent distress at this time. Patient and/or sg family updated on plan of care and expected duration. Pain level reassessed. Patient is alert, oriented x 3, equal unlabored respirations, skin warm/dry/pink. reports still feels weak but is feeling better Patient states feeling better. 08:50 Reassessment: D Dimer results called to , no answer, a voicemail for call back sg has been left. [place] WHITING for pt in 416 notified. 09:19 Reassessment: called back, updated on results of D Dimer. Vital Signs: 05:25 BP 97 / 59 RA Supine (auto/reg); Pulse 83; Resp 16; Temp 97.9(A); Pulse Ox 100% on R/A; ak1 Weight 79.38 kg (R); Height 5 ft. 10 in. (177.80 cm) (R); Pain 0/10; 05:37 BP 97 / 64; Pulse 76; Resp 12; Pulse Ox 100% on R/A; ak1 06:25 BP 98 / 57; Pulse 76; Resp 16; Pulse Ox 100% on R/A; tr5 07:44 BP 99 / 64; Pulse 73; Resp 16 S; Pulse Ox 100% on R/A; sg 08:15 BP 92 / 50; Pulse 80; Resp 17; Temp 97.9; Pulse Ox 99% on R/A; sg 05:25 Body Mass Index 25.11 (79.38 kg, 177.80 cm) ak1 ED Course: 05:25 Patient arrived in ED. ak1 05:25 Arm band placed on Patient placed in an exam room, on a stretcher, on electronic device monitor, ak1 on pulse oximetry, Patient notified of wait time. 05:28 Patrick Dominguez MD is Attending Physician. tw4 05:29 Triage completed. ak1 05:39 Patient has correct armband on for positive identification. Placed in gown. Bed in low ak1 position. Call light in reach. Side rails up X2. Adult w/ patient. vehicle monitor technician on. Pulse ox on. NIBP on. 05:39 Inserted saline lock: 22 gauge in left hand, using aseptic technique. ,using aseptic ak1 technique. placed by EMS. 05:42 Carolynn Dominguez, RN is Primary Nurse. lp1 06:00 Accessed Port-a-Cath. using accessed w/ # 20 Rogel needle, ,sterile technique, per [facility] hospital protocol. Clean \T\ dry. Dressing intact. Good blood return. Flushes easily. 06:00 Initial lab(s) drawn, by me, sent to lab. lp1 06:22 Awaiting lab results. tr5 06:22 Door closed. Noise minimized. Warm blanket given. Pillow given. Head of bed elevated. tr5 06:39 Chest Single View XRAY In Process Unspecified. EDMS 06:51 Notified ED physician of a critical lab result(s). 3.3 lactate. ak1 07:06 James Cristobal MD is Hospitalizing Provider. tw4 08:20 No provider procedures requiring assistance completed. sg 08:42 Patient admitted, IV remains in place. intact, No redness/swelling at site. sg Administered Medications: 06:10 Drug: NS 0.9% (30 ml/kg) 30 ml/kg Route: IV; Rate: bolus; Site: right hand; tr5 07:40 Drug: LevaQUIN 500 mg Volume: 100 ml; Route: IVPB; Infused Over: 60 mins; Site: sg Port-a-cath; 08:32 Follow up: Response: No adverse reaction; IV Status: Completed infusion sg 08:35 Drug: Rocephin - (cefTRIAXone) 1 grams Route: IVPB; Infused Over: 30 mins; Site: iw Port-a-cath; Point of Care Testing: Blood Glucose: 07:01 Blood Glucose: 144 mg/dL; lp1 07:01 Blood Glucose: 144 mg/dL; lp1 Ranges: Intake: 06:10 IV: 1000ml (IV Fluid); Total: 1000ml. tr5 06:58 IV: 1000ml (IV Fluid); Total: 2000ml. lp1 Outcome: 07:07 Decision to Hospitalize by Provider. tw4 08:40 Admitted to Tele accompanied by [facility], via stretcher, room 416, with chart, Report sg called to HENOK Salvador 08:40 Condition: good 08:40 Instructed on the need for admit, safety practices. 08:46 Patient left the ED. bd Signatures: Dispatcher [employer] EDMS Cristine Viera Steven, RN RN sg Danitza Cruz, RN HENOK iw aCrolynn Dominguez RN RN lp1 Mary Ann Peña RN RN ak1 Patrick Dominguez MD MD tw4 Devang Rivera RN RN tr5 Corrections: (The following items were deleted from the chart) 05:39 05:37 BP 97 / 64; Pulse 76bpm; Pulse Ox 100% RA; ak1 ak1 06:24 06:22 General: Appears in no apparent distress. Behavior is calm, cooperative, tr5 appropriate for age, tr5
[2019-06-17] MEDS ORDERED: NA CHLORIDE 0.9% 500 ML ONE (07:22)
[2019-06-17] MEDS ORDERED: Levofloxacin500mg IV 500 MG/100 ML BAG IV ONE (07:40)
[2019-06-17 08:07] LABS: Anisocytosis 1+; Blood Morphology Comment NOTED (NOT SEEN); Platelet Estimate ADEQ; Urine White Blood Cell Casts OK
[2019-06-17 08:08] LABS: Burr Cells 1+
--- NOTE | 2019-06-17 08:33 | RAD REPORT ---
EXAM DESCRIPTION: RAD - Chest Single View - 06/17/2019 6:37 am CLINICAL HISTORY: CHEST PAIN Chest pain. COMPARISON: No comparisons FINDINGS: Portable technique limits examination quality. The lungs are grossly clear. The heart is normal in size. No displaced fractures.Right-sided port cat heter has tip in the SVC. IMPRESSION: No acute intrathoracic process suspected.
[2019-06-17] MEDS ORDERED: CEFTRIAXONE 1000 MG/VIAL ONE (08:52)
[2019-06-17] MEDS: INSULIN -REGULAR HUMAN 50 UNIT/0.5 ML ML SQ SCH ×4 (09:12→21:00)
[2019-06-17] MEDS: NA CHLORIDE 0.9% 1,000 ML IV SCH ×2 (09:46→19:00)
[2019-06-17] MEDS: ENOXAPARIN 40 MG/0.4 ML SQ SCH (09:47)
[2019-06-17 10:22] VITALS: BMI 25.0
[2019-06-17] MEDS: PROCHLORPERAZINE 5 MG TAB PO PRN (12:01)
[2019-06-17 12:34] LABS: Urine Bacteria >50 /HPF (NONE SEEN); Urine Culture Reflex Order REFLEXED; Urine RBC <5 /HPF (NONE SEEN)
--- NOTE | 2019-06-17 13:36 | EKG ---
Test Date: 2019-06-17 Test Time: 06:09:32 Criminal Legal Assistant: MEASUREMENT RESULTS: Intervals: Rate: 78 VA: 164 QRSD: 82 QT: 424 QTc: 483 [place]: P: 61 VA: 164 QRS: 53 T: 91 INTERPRETIVE STATEMENTS: Normal sinus rhythm Prolonged QT Abnormal ECG Compared to ECG 02/24/2016 08:33:43 T-wave abnormality no longer present Electronically Signed On 06-17-19 13:34:07 CDT by Stephen Kumar
[2019-06-17] MEDS ORDERED: PROCHLORPERAZINE 5 MG TAB PO PRN (15:36)
[2019-06-17] MEDS ORDERED: ONDANSETRON 4 MG (ODT) TAB PO PRN (15:36)
[2019-06-17] MEDS ORDERED: SIMETHICONE 80 MG TAB PO PRN (15:36)
[2019-06-17 15:59] LABS: Urine Appearance CLEAR; Urine Bilirubin NEGATIVE (NEG); Urine Blood TRACE (NEG); Urine Color YELLOW; Urine Glucose TRACE (NEG); Urine Protein NEGATIVE (NEG); Urine Urobilinogen 0.2 mg/dL (0.2-1.0)
[2019-06-17 16:01] LABS: Urine Microscopic Reflex ORDER UMIC
[2019-06-17 16:12] LABS: Urine Amorphous Sediment 1+ /HPF (NONE SEEN); Urine Bacteria 20-50 /HPF (NONE SEEN); Urine Culture Reflex Order REFLEXED; Urine RBC <5 /HPF (NONE SEEN)
--- NOTE | 2019-06-17 18:10 | P.HP ---
Patient History Date of Service: 06/17/19 Reason for admission: Near-syncope History of Present Illness: This is a 64-year-old male with history of insulin-dependent diabetes mellitus, hypertension, cholangiocarcinoma currently undergoing chemotherapy who presented to the ER with a near syncopal episode. Per patient, he was recently discharged 2 days ago from [facility] after 1st session of 44 hr chemotherapy out of the 6 sessions of her planned. He was doing well until the morning of admission when he stated that he blacked out for a few min and can't really remember. He called out to his for help. His could not get him up and therefore EMS was called. Patient states that he is not sure if he had any dizziness but since he has been in the ER, he denies any dizziness, chest pain, shortness of breath, fevers, chills, headaches, and GI or complaints. He was brought to the ER by EMS as his blood pressure was in the 60s. He was given 500 cc by the EMS and brought to the ER. In the ER, his blood pressure was 97/59, heart rate of 83, respirations, afebrile at 99 and 100% on room air. His BMI is 25. His labs was remarkable for normal WBC count but with left shift, lactic acid elevated at 3.3, creatinine elevated at 2.25 and BUN elevated at 63. His creatinine 2 days ago was 1.51. Urinalysis and chest x-ray were pending. He was then referred for for admission for near syncopal episode, suspected infection, without a clear source. At the time of my exam, he was alert oriented x3, in no acute distress. Blood pressure was still slightly low and he complained of generalized weakness. Allergies No Known Allergies Allergy (Unverified 06/17/19 08:29) Home medications list reviewed: Yes Home Medications: Allopurinol [Zyloprim] 100 mg PO DAILY 06/17/19 Atorvastatin Calcium [Lipitor] 40 mg PO BEDTIME 06/17/19 Famotidine 20 mg PO BID 06/17/19 Finasteride 5 mg PO DAILY 06/17/19 Gabapentin 200 mg PO BEDTIME 06/17/19 Insulin Aspart [Novolog] See Protocol SQ TID 06/17/19 Insulin Glargine Human [Lantus*] 20 units SQ BEDTIME 06/17/19 Metoprolol Succinate [Toprol Xl*] 25 mg pe PO DAILY 06/17/19 [place]-3S/Dha/Epa/Fish Oil [[place]-3 Fish Oil 1,000 mg Sfgl] 2 g PO BEDTIME Ondansetron [Ondansetron Odt] 8 mg PO Q8H PRN 06/17/19 Prochlorperazine [Compazine] 5 mg PO Q6H PRN 06/17/19 Simethicone 80 mg PO Q6H PRN 06/17/19 Tamsulosin [Flomax*] 0.4 mg PO DAILY 06/17/19 Tramadol HCl [Ultram] 50 mg PO BID PRN 06/17/19 dexAMETHasone [Decadron*] 4 mg PO DAILY 06/17/19 - Past Medical/Surgical History Has patient received pneumonia vaccine in the past: Yes Diabetic: Yes -: HTN -: Diabetes Insulin dependent -: Liver Abscess -: 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 moist/pink, EOMI, Sclerae nonicteric Neck: Supple, 2+ carotid pulse no bruit, No LAD, Without JVD or thyroid abnormality Respiratory: Clear to auscultation bilaterally, Normal air movement Cardiovascular: Regular rate/rhythm, Normal S1 S2 Gastrointestinal: Normal bowel sounds, No tenderness Musculoskeletal: No tenderness Integumentary: No rashes Neurological: Normal gait, Normal speech, Normal strength at 5/5 x4 extr, Normal tone, Normal affect Lymphatics: No axilla or inguinal lymphadenopathy - Studies Laboratory Data (last 24 hrs) 06/17/19 06:06: WBC 9.8, Hgb 12.5 L, Hct 37.7 L, Plt Count 373 06/17/19 06:06: Sodium 139, Potassium 4.7, BUN 63 H, Creatinine 2.28 H, Glucose 145 H, Total Bilirubin 0.4, AST 30, ALT 57, Alkaline Phosphatase 135 H, Lipase 197 06/17/19 06:06: PT 9.4 L, INR 0.79, APTT 27.6 Assessment and Plan - Problems (Diagnosis) (1) Syncopal episodes Current Visit: Yes Status: Acute Plan: Unsure of etiology but could be secondary to hypotension/dehydration due to decreased p.o. intake - will hydrate patient with IV fluids - get physical therapy evaluation, check orthostatics vital signs - may require further imaging if no improvement or further episodes. Qualifiers: Encounter type: initial encounter (2) Generalized weakness Current Visit: Yes Status: Acute Plan: This could be secondary to recent chemotherapy session. -We will get physical therapy evaluation (3) Urinary tract infection Current Visit: Yes Status: Acute Plan: Patient with a urinary tract infection evident on urine analysis, urine culture still pending. -start IV antibiotics due to patient's immunocompromise status. -monitor vital signs closely. Qualifiers: Urinary tract infection type: acute cystitis Hematuria presence: without hematuria Qualified Code(s): N30.00 - Acute cystitis without hematuria (4) Acute kidney injury Current Visit: Yes Status: Acute Plan: Likely secondary to pre renal due to hypotension from decreased p.o. intake. - gently hydrate patient -monitor via labs -avoid nephrotoxic medic (5) History of immunocompromised state Current Visit: Yes Status: Acute (6) Cholangiocarcinoma Current Visit: Yes Status: Acute Plan: Patient is currently undergoing chemotherapy at [facility]. Last chemotherapy session was 06/15/2019. -continue with outpatient follow up at [facility] further management of cholangiocarcinoma/chemotherapy - Plan DVT prophylaxis: Lovenox GI prophylaxis: None Diet: Diabetic Disposition: Admit to floor, gently hydrate patient. Pending symptomatic improvement. Anticipate discharge home in the next 24-48 hr once clinically improved Discharge Plan: Home Plan to discharge in: 48 Hours - Advance Directives Does patient have a Living Will: No Does patient have a Durable POA for Healthcare: No Time Spent Managing Pts Care (In Minutes): 55
[2019-06-17] MEDS: GABAPENTIN 100 MG CAP PO SCH (21:38)
[2019-06-17] MEDS: FAMOTIDINE 20 MG TAB PO SCH (21:38)
[2019-06-17] MEDS: DOCOSAHEXANOIC AC/EPA 1000 MG PO SCH (21:38)
[2019-06-17] MEDS: INSULIN GLARGINE 100 UNITS/ML SQ SCH (21:43)
[2019-06-17] MEDS: ATORVASTATIN 40 MG TAB PO SCH (21:44)
[2019-06-18] MEDS: NA CHLORIDE 0.9% 1,000 ML IV SCH (04:18)
[2019-06-18 06:17] LABS: Absolute Lymphocytes (CBC) 0.5 K/uL (0.7-4.9); Basophils % 0.2 % (0-1.3); Hematocrit 37.3 % (39.6-49.0); Lymphocytes % 14.8 % (15.3-44.8); MPV 8.2 fL (7.6-11.3); RBC Red Blood Cell Count 4.52 M/uL (4.33-5.43)
[2019-06-18 06:26] LABS: Magnesium 2.9 mg/dL (1.8-2.4); Phosphorus 2.8 mg/dL (2.5-4.9)
[2019-06-18 06:40] LABS: Albumin 2.2 g/dL (3.4-5.0); Bilirubin Total 0.4 mg/dL (0.2-1.0); Potassium 4.6 mmol/L (3.5-5.1); Protein, Total 4.7 g/dL (6.4-8.2)
[2019-06-18] MEDS: INSULIN -REGULAR HUMAN 50 UNIT/0.5 ML ML SQ SCH ×4 (07:30→21:00)
[2019-06-18] MEDS: ENOXAPARIN 40 MG/0.4 ML SQ SCH (08:34)
[2019-06-18] MEDS: CEFTRIAXONE/SWI 1gm 1 GM/10 ML SYR IV SCH (08:34)
[2019-06-18] MEDS: dexAMETHasone 4 MG TAB PO SCH (08:35)
[2019-06-18] MEDS: PROCHLORPERAZINE 5 MG TAB PO PRN (08:35)
[2019-06-18] MEDS: ALLOPURINOL 100 MG TAB PO SCH (08:36)
[2019-06-18] MEDS: FINASTERIDE 5 MG TAB PO SCH (08:36)
[2019-06-18] MEDS: METOPROLOL XL 25 MG TAB PO SCH (08:36)
[2019-06-18] MEDS: TAMSULOSIN 0.4 MG SR CAP PO SCH (08:36)
[2019-06-18] MEDS: FAMOTIDINE 20 MG TAB PO SCH ×2 (08:36→21:56)
--- NOTE | 2019-06-18 14:39 | P.PN ---
Subjective Date of Service: 06/18/19 Chief Complaint: Near-syncope Patient seen and examined at bedside. Chart reviewed and case discussed with nursing staff. at bedside. Patient reports feeling a little better, continues to complain of generalized weakness. Working with PT, continues to have lower BP Review of Systems 10-point ROS is otherwise unremarkable Physical Examination - Vital Signs Temperature: 96.9 F Blood Pressure: 119/62 Pulse: 91 Respirations: 18 Pulse Ox (%): 100 - Physical Exam General: Alert, Oriented x3, Mild distress HEENT: Atraumatic, PERRLA, EOMI Neck: Supple, JVD not distended Respiratory: Clear to auscultation bilaterally, Normal air movement Cardiovascular: Regular rate/rhythm, Normal S1 S2 Gastrointestinal: Normal bowel sounds, No tenderness Musculoskeletal: No tenderness Integumentary: No rashes Neurological: Normal speech, Normal tone, Normal affect Lymphatics: No axilla or inguinal lymphadenopathy - Studies Microbiology Data (last 24 hrs): 06/17/19 07:20 Blood - Blood Anaerobic Blood Culture - Final Assessment And Plan - Current Problems (Diagnosis) (1) Syncopal episodes Current Visit: Yes Status: Acute Plan: Unsure of etiology but could be secondary to hypotension/dehydration due to decreased p.o. intake - will continue to hydrate patient with IV fluids - physical therapy evaluation, check orthostatics vital signs - may require further imaging if no improvement or further episodes. Qualifiers: Encounter type: initial encounter (2) Generalized weakness Current Visit: Yes Status: Acute Plan: This could be secondary to recent chemotherapy session. -physical therapy (3) Urinary tract infection Current Visit: Yes Status: Acute Plan: Patient with a urinary tract infection evident on urine analysis, urine culture still pending. -Continue IV antibiotics due to patient's immunocompromised status. -monitor vital signs closely. Qualifiers: Urinary tract infection type: acute cystitis Hematuria presence: without hematuria Qualified Code(s): N30.00 - Acute cystitis without hematuria (4) Acute kidney injury Current Visit: Yes Status: Acute Plan: Likely secondary to pre renal due to hypotension from decreased p.o. intake. Improving - gently hydrate patient -monitor via labs -avoid nephrotoxic medications (5) History of immunocompromised state Current Visit: Yes Status: Acute (6) Cholangiocarcinoma Current Visit: Yes Status: Acute Plan: Patient is currently undergoing chemotherapy at [facility]. Last chemotherapy session was 06/15/2019. -continue with outpatient follow up at [facility] further management of cholangiocarcinoma/chemotherapy - Plan DVT prophylaxis: Lovenox GI prophylaxis: None Diet: Diabetic Disposition: continue to gently hydrate patient. Pending symptomatic improvement. Anticipate discharge home in the next 24 hr once clinically improved
[2019-06-18] MEDS: NACHLORIDE 0.45% 1,000 ML IV SCH ×2 (15:00→21:58)
[2019-06-18] MEDS: INSULIN GLARGINE 100 UNITS/ML SQ SCH (21:00)
[2019-06-18] MEDS: ATORVASTATIN 40 MG TAB PO SCH (21:56)
[2019-06-18] MEDS: DOCOSAHEXANOIC AC/EPA 1000 MG PO SCH (21:56)
[2019-06-18] MEDS: GABAPENTIN 100 MG CAP PO SCH (21:56)
[2019-06-19] MEDS: NACHLORIDE 0.45% 1,000 ML IV SCH ×3 (01:00→21:00)
[2019-06-19] MEDS ORDERED: LOPERAMIDE HCL 2 MG CAPSULE PO ONE (03:39)
[2019-06-19 06:14] LABS: Absolute Lymphocytes (CBC) 0.8 K/uL (0.7-4.9); Basophils % 0.1 % (0-1.3); Hematocrit 40.9 % (39.6-49.0); Lymphocytes % 34.2 % (15.3-44.8); MPV 8.8 fL (7.6-11.3)
[2019-06-19 06:34] LABS: Albumin 2.7 g/dL (3.4-5.0); Bilirubin Total 0.5 mg/dL (0.2-1.0); Potassium 4.8 mmol/L (3.5-5.1); Protein, Total 5.9 g/dL (6.4-8.2)
[2019-06-19] MEDS: INSULIN -REGULAR HUMAN 50 UNIT/0.5 ML ML SQ SCH ×4 (07:30→21:00)
[2019-06-19] MEDS: TAMSULOSIN 0.4 MG SR CAP PO SCH (08:32)
[2019-06-19] MEDS: ALLOPURINOL 100 MG TAB PO SCH (08:33)
[2019-06-19] MEDS: FINASTERIDE 5 MG TAB PO SCH (08:33)
[2019-06-19] MEDS: METOPROLOL XL 25 MG TAB PO SCH ×2 (08:33→09:00)
[2019-06-19] MEDS: FAMOTIDINE 20 MG TAB PO SCH ×2 (08:33→21:29)
[2019-06-19] MEDS: ENOXAPARIN 40 MG/0.4 ML SQ SCH (08:33)
[2019-06-19] MEDS: dexAMETHasone 4 MG TAB PO SCH (08:33)
[2019-06-19] MEDS: CEFTRIAXONE/SWI 1gm 1 GM/10 ML SYR IV SCH (08:33)
--- NOTE | 2019-06-19 13:38 | P.PN ---
Subjective Date of Service: 06/19/19 Chief Complaint: Near-syncope Patient seen and examined at bedside. Chart reviewed and case discussed with nursing staff. at bedside. Patient reports feeling a little better, continues to complain of generalized weakness. This now having diarrhea. Reports more than 2-3 watery, nonbloody bowel movements this morning. Working with PT Review of Systems 10-point ROS is otherwise unremarkable Physical Examination - Vital Signs Temperature: 97.0 F Blood Pressure: 106/60 Pulse: 95 Respirations: 16 Pulse Ox (%): 100 - Physical Exam General: Alert, In no apparent distress, Oriented x3 HEENT: Atraumatic, PERRLA, EOMI Neck: Supple, JVD not distended Respiratory: Clear to auscultation bilaterally, Normal air movement Cardiovascular: Regular rate/rhythm, Normal S1 S2 Gastrointestinal: Normal bowel sounds, No tenderness Musculoskeletal: No tenderness Integumentary: Rash(es) Neurological: Normal speech, Normal tone, Normal affect Lymphatics: No axilla or inguinal lymphadenopathy Assessment And Plan - Current Problems (Diagnosis) (1) Syncopal episodes Current Visit: Yes Status: Acute Plan: Unsure of etiology but could be secondary to hypotension/dehydration due to decreased p.o. intake. Resolved, no further episodes in the hospital. - will continue to hydrate patient with IV fluids. IV fluids adjusted. - physical therapy evaluation, check orthostatics vital signs - may require further imaging if no improvement or further episodes. Qualifiers: Encounter type: initial encounter (2) Generalized weakness Current Visit: Yes Status: Acute Plan: This could be secondary to recent chemotherapy session. -physical therapy (3) Urinary tract infection Current Visit: Yes Status: Acute Plan: Patient with a urinary tract infection evident on urine analysis, urine culture negative -Continue IV antibiotics due to patient's immunocompromised status. -monitor vital signs closely. Qualifiers: Urinary tract infection type: acute cystitis Hematuria presence: without hematuria Qualified Code(s): N30.00 - Acute cystitis without hematuria (4) Acute kidney injury Current Visit: Yes Status: Acute Plan: Likely secondary to pre renal due to hypotension from decreased p.o. intake. Stable - gently hydrate patient -monitor via labs -avoid nephrotoxic medications (5) History of immunocompromised state Current Visit: Yes Status: Acute (6) Cholangiocarcinoma Current Visit: Yes Status: Acute Plan: Patient is currently undergoing chemotherapy at [facility]. Last chemotherapy session was 06/15/2019. -continue with outpatient follow up at [facility] further management of cholangiocarcinoma/chemotherapy (7) Diarrhea Current Visit: Yes Status: Acute Plan: This could be secondary to chemotherapy related versus infectious. -C. diff pending. -Continue to monitor and continue IV hydration. Qualifiers: Diarrhea type: unspecified type Qualified Code(s): R19.7 - Diarrhea, unspecified (8) Rash Current Visit: Yes Status: Acute Plan: Left groin area. -No evidence of infection. Will apply Bactroban -Keep area clean and dry - Plan DVT prophylaxis: Lovenox GI prophylaxis: None Diet: Diabetic Disposition: continue to gently hydrate patient. Pending symptomatic improvement. Anticipate discharge home in the next 24 hr once clinically improved
[2019-06-19] MEDS ORDERED: LOPERAMIDE HCL 2 MG CAPSULE PO STA (18:21)
[2019-06-19] MEDS: MUPIROCIN 2% OINT 22GM TUBE TOP SCH (21:28)
[2019-06-19] MEDS: GABAPENTIN 100 MG CAP PO SCH (21:29)
[2019-06-19] MEDS: DOCOSAHEXANOIC AC/EPA 1000 MG PO SCH (21:29)
[2019-06-19] MEDS: ATORVASTATIN 40 MG TAB PO SCH (21:29)
[2019-06-19] MEDS: INSULIN GLARGINE 100 UNITS/ML SQ SCH (22:03)
[2019-06-20] MEDS: NACHLORIDE 0.45% 1,000 ML IV SCH ×2 (06:08→16:32)
[2019-06-20 06:36] LABS: Absolute Lymphocytes (CBC) 0.5 K/uL (0.7-4.9); Basophils % 0.2 % (0-1.3); Hematocrit 35.5 % (39.6-49.0); Lymphocytes % 61.2 % (15.3-44.8); MPV 8.4 fL (7.6-11.3)
[2019-06-20 06:59] LABS: Albumin 2.3 g/dL (3.4-5.0); Bilirubin Total 0.5 mg/dL (0.2-1.0); Potassium 4.7 mmol/L (3.5-5.1); Protein, Total 4.8 g/dL (6.4-8.2)
[2019-06-20] MEDS: INSULIN -REGULAR HUMAN 50 UNIT/0.5 ML ML SQ SCH ×4 (07:30→21:00)
[2019-06-20] MEDS: dexAMETHasone 4 MG TAB PO SCH (09:00)
[2019-06-20] MEDS: METOPROLOL XL 25 MG TAB PO SCH (09:00)
[2019-06-20] MEDS: MUPIROCIN 2% OINT 22GM TUBE TOP SCH (09:00)
[2019-06-20 09:18] LABS: Anisocytosis 1+; Blood Morphology Comment NOTED (NOT SEEN); Platelet Estimate ADEQ
[2019-06-20] MEDS: FINASTERIDE 5 MG TAB PO SCH (09:44)
[2019-06-20] MEDS: CEFTRIAXONE/SWI 1gm 1 GM/10 ML SYR IV SCH (09:44)
[2019-06-20] MEDS: ENOXAPARIN 40 MG/0.4 ML SQ SCH (09:44)
[2019-06-20] MEDS: TAMSULOSIN 0.4 MG SR CAP PO SCH (09:44)
[2019-06-20] MEDS: FAMOTIDINE 20 MG TAB PO SCH ×2 (09:44→21:48)
[2019-06-20] MEDS: ALLOPURINOL 100 MG TAB PO SCH (09:44)
[2019-06-20] MEDS ORDERED: LOPERAMIDE HCL 2 MG CAPSULE PO ONE (10:13)
--- NOTE | 2019-06-20 14:48 | P.PN ---
Subjective Date of Service: 06/20/19 Chief Complaint: Near-syncope Patient seen and examined at bedside. Chart reviewed and case discussed with nursing staff. at bedside. Patient continues to have diarrhea. He denies any nausea/vomiting, abdominal pain/cramping, fevers, chills overnight, chest pain, sob, complaints. He states he is doing well except for the watery, non bloody diarrhea. He is working with PT. Review of Systems 10-point ROS is otherwise unremarkable Physical Examination - Vital Signs Temperature: 98.9 F Blood Pressure: 105/62 Pulse: 98 Respirations: 17 Pulse Ox (%): 99 - Physical Exam General: Alert, In no apparent distress, Oriented x3 HEENT: Atraumatic, PERRLA, EOMI Neck: Supple, JVD not distended Respiratory: Clear to auscultation bilaterally, Normal air movement Cardiovascular: Regular rate/rhythm, Normal S1 S2 Gastrointestinal: Normal bowel sounds, No tenderness Musculoskeletal: No tenderness Integumentary: No rashes Neurological: Normal speech, Normal tone, Normal affect Lymphatics: No axilla or inguinal lymphadenopathy Assessment And Plan - Current Problems (Diagnosis) (1) Syncopal episodes Current Visit: Yes Status: Acute Plan: Unsure of etiology but could be secondary to hypotension/dehydration due to decreased p.o. intake. Resolved, no further episodes in the hospital. - will continue to hydrate patient with IV fluids. IV fluids adjusted. - physical therapy evaluation, check orthostatics vital signs - may require further imaging if no improvement or further episodes. Qualifiers: Encounter type: initial encounter (2) Generalized weakness Current Visit: Yes Status: Acute Plan: This could be secondary to recent chemotherapy session. -physical therapy (3) Urinary tract infection Current Visit: Yes Status: Acute Plan: Patient with a urinary tract infection evident on urine analysis, urine culture negative -monitor vital signs closely. Qualifiers: Urinary tract infection type: acute cystitis Hematuria presence: without hematuria Qualified Code(s): N30.00 - Acute cystitis without hematuria (4) Acute kidney injury Current Visit: Yes Status: Acute Plan: Likely secondary to pre renal due to hypotension from decreased p.o. intake. Resolved. - gently hydrate patient -monitor via labs -avoid nephrotoxic medications (5) History of immunocompromised state Current Visit: Yes Status: Acute (6) Cholangiocarcinoma Current Visit: Yes Status: Acute Plan: Patient is currently undergoing chemotherapy at [facility]. Last chemotherapy session was 06/15/2019. -continue with outpatient follow up at [facility] further management of cholangiocarcinoma/chemotherapy (7) Diarrhea Current Visit: Yes Status: Acute Plan: This could be secondary to chemotherapy related versus infectious. -C. diff pending. -Continue to monitor and continue IV hydration. Qualifiers: Diarrhea type: unspecified type Qualified Code(s): R19.7 - Diarrhea, unspecified (8) Rash Current Visit: Yes Status: Acute Plan: Left groin area. -No evidence of infection. Will apply Bactroban -Keep area clean and dry -Cultures negative so far. (9) Neutropenia Current Visit: Yes Status: Acute Plan: Likely secondary to chemotherapy induced. - ANC 300, severe neutropenia - Prophylaxis with Cefepime and flagyl - Reverse isolation - So far, he has been afebrile, clinically stable and hemodynamically stable. Continue to monitor vital signs. Notify physician of temperature above 100.7 Qualifiers: Neutropenia type: secondary to cancer chemotherapy Qualified Code(s): D70.1 - Agranulocytosis secondary to cancer chemotherapy; T45.1X5A - Adverse effect of antineoplastic and immunosuppressive drugs, initial encounter - Plan DVT prophylaxis: Lovenox GI prophylaxis: None Diet: Diabetic Disposition: continue to gently hydrate patient. Pending symptomatic improvement. Anticipate discharge home in the next 24 hr once clinically improved
[2019-06-20 14:49] VITALS: O2SAT 98
[2019-06-20] MEDS ORDERED: TBO-FILGRASTIM 480 MCG/0.8 ML SYR SQ SCH (16:00)
[2019-06-20] MEDS: METRONIDAZOLE 500mg IVPB 500 MG/100 ML BAG IV SCH (16:33)
[2019-06-20] MEDS: VANCOMYCIN ORAL SOLN 250 MG/5 ML OSYR PO SCH (17:46)
[2019-06-20] MEDS ORDERED: CEFEPIME/SWI 1gm 10 ML IV SCH (21:00)
[2019-06-20] MEDS: INSULIN GLARGINE 100 UNITS/ML SQ SCH (21:00)
[2019-06-20] MEDS ORDERED: CEFEPIME 1 GM/VIAL IV SCH (21:00)
[2019-06-20] MEDS: DOCOSAHEXANOIC AC/EPA 1000 MG PO SCH (21:47)
[2019-06-20] MEDS: ATORVASTATIN 40 MG TAB PO SCH (21:48)
[2019-06-20] MEDS: GABAPENTIN 100 MG CAP PO SCH (21:48)
[2019-06-21] MEDS: METRONIDAZOLE 500mg IVPB 500 MG/100 ML BAG IV SCH
[2019-06-21] MEDS: VANCOMYCIN ORAL SOLN 250 MG/5 ML OSYR PO SCH
[2019-06-21] MEDS: NACHLORIDE 0.45% 1,000 ML IV SCH (01:05)
[2019-06-21 02:59] VITALS: TEMP 96.9
[2019-06-21 04:53] VITALS: BP 110/70
[2019-06-21] MEDS ORDERED: TBO-FILGRASTIM 480 MCG/0.8 ML SYR SQ SCH ×2 (09:00→16:00)
--- NOTE | 2019-06-21 17:14 | P.DS ---
Admission Date: 06/20/19 Discharge Date: 06/21/19 Disposition: TRANSFER TO [facility] Reason for Admission: Near-syncope - Problems (1) Syncopal episodes Status: Acute Qualifiers: Encounter type: initial encounter (2) Generalized weakness Status: Acute (3) Urinary tract infection Status: Acute Qualifiers: Urinary tract infection type: acute cystitis Hematuria presence: without hematuria Qualified Code(s): N30.00 - Acute cystitis without hematuria (4) Acute kidney injury Status: Acute (5) History of immunocompromised state Status: Acute (6) Cholangiocarcinoma Status: Acute (7) Diarrhea Status: Acute Qualifiers: Diarrhea type: unspecified type Qualified Code(s): R19.7 - Diarrhea, unspecified (8) Rash Status: Acute (9) Neutropenia Status: Acute Qualifiers: Neutropenia type: secondary to cancer chemotherapy Qualified Code(s): D70.1 - Agranulocytosis secondary to cancer chemotherapy; T45.1X5A - Adverse effect of antineoplastic and immunosuppressive drugs, initial encounter Brief History of Present Illness: This is a 64-year-old male with history of insulin-dependent diabetes mellitus, hypertension, cholangiocarcinoma currently undergoing chemotherapy who presented to the ER with a near syncopal episode. Per patient, he was recently discharged 2 days ago from [facility] after 1st session of 44 hr chemotherapy out of the 6 sessions of her planned. He was doing well until the morning of admission when he stated that he blacked out for a few min and can't really remember. He called out to his for help. His could not get him up and therefore EMS was called. Patient states that he is not sure if he had any dizziness but since he has been in the ER, he denies any dizziness, chest pain, shortness of breath, fevers, chills, headaches, and GI or complaints. He was brought to the ER by EMS as his blood pressure was in the 60s. He was given 500 cc by the EMS and brought to the ER. In the ER, his blood pressure was 97/59, heart rate of 83, respirations, afebrile at 99 and 100% on room air. His BMI is 25. His labs was remarkable for normal WBC count but with left shift, lactic acid elevated at 3.3, creatinine elevated at 2.25 and BUN elevated at 63. His creatinine 2 days ago was 1.51. Urinalysis and chest x-ray were pending. He was then referred for for admission for near syncopal episode, suspected infection, without a clear source. At the time of my exam, he was alert oriented x3, in no acute distress. Blood pressure was still slightly low and he complained of generalized weakness. Hospital Course: 64 yr old male with cholangiocarcinoma currently undergoing chemo (last chemo session 5 days ago) came in with syncopal episode and hypotension, now with diarrhea and found to be C. diff positive. Syncope resolved. WBC count normal on admission, now down to 0.9 with ANC of 300. H&H stable, BMP now stable with BECCA resolved. Clinically, doing well. Remained hemodynamically stable ( initially did have tachycardia, now improved with IVF). During this hospitalization, he was placed on reverse isolation, he received IVF, antibiotics initially with rocephin, now adjusted to cefepime and flagyl. He was stared on PO vancomycin as well. He also recieved 1 x neupogen to help with his WBC count. requesting transfer to [facility] as patient's oncologist is there. Transfer initiated. Patient transferred in a safe stable manner once he was accepted at [facility]. Vital Signs/Physical Exam: Temp Pulse Resp BP Pulse Ox 96.9 F 116 H 16 110/70 100 06/21/19 04:00 06/21/19 04:00 06/21/19 04:00 06/21/19 04:00 06/21/19 04:00 General: Alert, In no apparent distress, Oriented x3 HEENT: Atraumatic, PERRLA, EOMI Neck: Supple, JVD not distended Respiratory: Clear to auscultation bilaterally, Normal air movement Cardiovascular: Regular rate/rhythm, Normal S1 S2 Gastrointestinal: Normal bowel sounds, No tenderness Musculoskeletal: No tenderness Integumentary: No rashes Neurological: Normal speech, Normal tone, Normal affect Lymphatics: No axilla or inguinal lymphadenopathy Laboratory Data at Discharge: WBC 0.8 K/uL (4.3-10.9) L* D 06/20/19 05:47 Hgb 11.8 g/dL (13.6-17.9) L 06/20/19 05:47 Hct 35.5 % (39.6-49.0) L 06/20/19 05:47 Plt Count 191 K/uL (152-406) D 06/20/19 05:47 PT 9.4 SECONDS (9.5-12.5) L 06/17/19 06:06 INR 0.79 06/17/19 06:06 APTT 27.6 SECONDS (24.3-36.9) 06/17/19 06:06 Sodium 137 mmol/L (136-145) 06/20/19 05:47 Potassium 4.7 mmol/L (3.5-5.1) 06/20/19 05:47 BUN 31 mg/dL (7-18) H 06/20/19 05:47 Creatinine 1.00 mg/dL (0.55-1.3) 06/20/19 05:47 Glucose 75 mg/dL (74-106) 06/20/19 05:47 Phosphorus 2.8 mg/dL (2.5-4.9) 06/18/19 06:00 Magnesium 2.9 mg/dL (1.8-2.4) H 06/18/19 06:00 Total Bilirubin 0.5 mg/dL (0.2-1.0) 06/20/19 05:47 AST 19 U/L (15-37) 06/20/19 05:47 ALT 36 U/L (12-78) 06/20/19 05:47 Alkaline Phosphatase 113 U/L (45-117) 06/20/19 05:47 Lipase 197 U/L (73-393) 06/17/19 06:06 Home Medications: Allopurinol [Zyloprim] 100 mg PO DAILY 06/17/19 Atorvastatin Calcium [Lipitor] 40 mg PO BEDTIME 06/17/19 Famotidine 20 mg PO BID 06/17/19 Finasteride 5 mg PO DAILY 06/17/19 Gabapentin 200 mg PO BEDTIME 06/17/19 Insulin Aspart [Novolog] See Protocol SQ TID 06/17/19 Insulin Glargine Human [Lantus*] 20 units SQ BEDTIME 06/17/19 Metoprolol Succinate [Toprol Xl*] 25 mg pe PO DAILY 06/17/19 [place]-3S/Dha/Epa/Fish Oil [[place]-3 Fish Oil 1,000 mg Sfgl] 2 g PO BEDTIME Ondansetron [Ondansetron Odt] 8 mg PO Q8H PRN 06/17/19 Prochlorperazine [Compazine] 5 mg PO Q6H PRN 06/17/19 Simethicone 80 mg PO Q6H PRN 06/17/19 Tamsulosin [Flomax*] 0.4 mg PO DAILY 06/17/19 Tramadol HCl [Ultram] 50 mg PO BID PRN 06/17/19 dexAMETHasone [Decadron*] 4 mg PO DAILY 06/17/19 Time spent managing pt's care (in minutes): 55
== END 2019-06-21 04:06 | disposition short-term general hospital (02) | DRG 372 ==
LOC: ER 05:19 → ERHOLD 07:28 → 4TH 08:28 → OBSVTOIN 06-20 17:58
PROVIDERS: ADMIT Family Medicine; ATTEND Family Medicine
DX: A04.72 Enterocolitis due to Clostridium difficile, not specified as recurrent (principal); N30.00 Acute cystitis without hematuria; N17.9 Acute kidney failure, unspecified; C24.9 Malignant neoplasm of biliary tract, unspecified; R55 Syncope and collapse; E86.0 Dehydration; I95.9 Hypotension, unspecified; D70.1 Agranulocytosis secondary to cancer chemotherapy; T45.1X5A Adverse effect of antineoplastic and immunosuppressive drugs, initial encounter; I10 Essential (primary) hypertension; E11.9 Type 2 diabetes mellitus without complications; R21 Rash and other nonspecific skin eruption; Z79.4 Long term (current) use of insulin
CPT/HCPCS: 36415; 71045; 80048; 80053; 80076; 81003; 81015; 82550; 82553; 82962; 83605; 83690; 83735; 84100; 84145; 84484; 85025; 85379; 85610; 85730; 87040; 87070; 87075; 87086; 87088; 87205; 87493; 93005; 94760; 96365; 97112; 97116; 97161; 99285; G0378; J0692; J0696; J1446; J1650; J7030

== ENCOUNTER 2019-07-21 20:47 | Inpatient (IN) | payer BC, SELFPAY ==
--- OUTSIDE RECORDS SUMMARY | 2019-07-21 20:51 | XMS REPORT | Clinical Summary ---
:1955 Author Organization [facility] Address [address] [place] [address] Care Team Providers Name Role Phone Tesha Aolnzo MD Primary Care Provider Allergies No Known Allergies Medications Medication Sig Dispensed Refills Start End Status Date Date tamsulosin (FLOMAX) Take 0.4 mg by 0 [...] a day as needed for moderate pain. finasteride Take 5 mg by 0 Active (PROSCAR) 5 mg mouth daily. tablet prochlorperazine Take 1 tablet 30 tablet 4 Active (COMPAZINE) 5 MG (5 mg total) 9 019 tablet by mouth every 6 (six) hours as needed for nausea or vomiting for up to 30 days. ondansetron (ZOFRAN) Take 1 tablet 20 tablet 4 Active 8 MG tablet (8 mg total) 9 019 by mouth every 8 (eight) hours as needed for nausea or vomiting for up to 30 days. loperamide (IMODIUM) Take 1 capsule 150 capsule 0 Active 2 mg capsule (2 mg total) 9 019 by mouth every 4 (four) hours while awake for 30 days. Until no diarrhea for 12 hours - over the counter metFORMIN Take 1 tablet 60 tablet 0 Active (GLUCOPHAGE) 500 mg (500 mg total) 9 019 tablet by mouth 2 (two) times a day with meals for 30 days. furosemide (LASIX) Take 1 tablet 60 tablet 0 Active 20 mg tablet (20 mg total) 9 019 by mouth daily as needed (edema) for up to 30 days. dronabinol (MARINOL) Take 1 capsule 0 Active 2.5 MG capsule (2.5 mg total) 9 019 by mouth 2 (two) times a day before meals for 30 days. OLANZapine zydis Take 1 tablet 30 tablet 0 Active (ZyPREXA) 5 MG at night, 9 disintegrating starting the tablet night before chemo and continue for 4 days (chemo is every 14 days) benzonatate Take 1 capsule 60 capsule 0 Active (TESSALON) 200 MG (200 mg total) 9 019 capsule by mouth 3 (three) times a day as needed for cough for up to 30 days. dexAMETHasone Take 1 tab (4 4 tablet 4 Active (DECADRON) 4 MG mg in total) 9 019 tablet two times a day ONLY on Day 1 and Day 2 after chemotherapy. liraglutide Inject 1.2 mg 0 Discontinued (VICTOZA) 0.6 mg/0.1 under the skin 019 (Stop Taking at mL (18 mg/3 mL) pen daily. Discharge) injector olmesartan (BENICAR) Take 20 mg by 0 Discontinued 40 MG tablet mouth daily. 019 (Stop Taking at Discharge) allopurinol Take 100 mg by 0 Discontinued (ZYLOPRIM) 100 MG mouth daily. 019 (Stop Taking at tablet Discharge) atorvastatin Take 40 mg by 0 Discontinued (LIPITOR) 40 MG mouth daily. 019 (Stop Taking at tablet Discharge) cetirizine-pseudoepH Take 1 tablet 0 Discontinued EDrine (ZyrTEC-D) by mouth 2 019 (Stop Taking at 5-120 mg per 12 hr (two) times a Discharge) tablet day. insulin ASPART Inject under 0 Discontinued (NovoLOG) 100 the skin 3 019 (Stop Taking at unit/mL injection (three) times Discharge) a day before meals. Sliding scale insulin GLARGINE Inject 50 0 Discontinued (LANTUS) 100 unit/mL Units under 019 (Stop Taking at injection (vial) the skin Discharge) nightly. Sliding scale metFORMIN Take 500 mg by 0 Discontinued (GLUCOPHAGE) 500 mg mouth daily. 019 (Stop Taking at tablet Discharge) torsemide (DEMADEX) Take 5 mg by 0 Discontinued 10 MG tablet mouth daily. 019 (Stop Taking at Discharge) furosemide (LASIX) Take 20 mg by 0 Discontinued 20 mg tablet mouth 2 (two) 019 (Stop Taking at times a day. Discharge) metoprolol succinate Take 25 mg by 0 Discontinued XL (TOPROL-XL) 25 mg mouth daily. 019 (Stop Taking at 24 hr tablet Pt takes Discharge) metoprolol succinate ER 25 mg tab ondansetron (ZOFRAN) Take 1 tablet 20 tablet 0 Discontinued 8 MG tablet (8 mg total) 9 019 (Reorder) by mouth every 8 (eight) hours as needed for nausea or vomiting for up to 30 days. prochlorperazine Take 1 tablet 30 tablet Discontinued (COMPAZINE) 5 MG (5 mg total) 9 019 (Reorder) tablet by mouth every 6 (six) hours as needed for nausea or vomiting for up to 30 days. famotidine (PEPCID) Take 1 tablet 60 tablet Discontinued 20 MG tablet (20 mg total) 9 019 (Stop Taking at by mouth 2 Discharge) (two) times a day for 30 days. simethicone Chew 1 tablet 30 tablet (MYLICON) 80 MG (80 mg total) 9 019 chewable tablet every 6 (six) hours as needed for flatulence for up to 30 days. dexAMETHasone Take 1 tablet 30 tablet Discontinued (DECADRON) 4 MG (4 mg total) 9 019 tablet by mouth daily for 30 days. OLANZapine zydis Take 1 tablet 3 tablet Discontinued (ZyPREXA) 5 MG (5 mg total) 9 019 (Reorder) disintegrating by mouth tabletIndications: nightly for 3 Prevention of days Chemotherapy-Induced Indications: Nausea and Vomiting Prevent Nausea and Vomiting from Cancer Chemotherapy. fidaxomicin Take 1 tablet 16 tablet 0 (DIFICID) 200 mg (200 mg total) 9 019 tablet by mouth 2 (two) times a day for 8 days. dronabinol (MARINOL) Take 1 capsule 60 capsule 0 Discontinued 5 MG capsule (5 mg total) 9 019 (Stop Taking at by mouth 2 Discharge) (two) times a day before meals for 30 days. Hospital, Clinic, or Other Ordered Dose Route Frequency Start Date End Date Status Facility Administered Medication potassium chloride (K-DUR) 40 mEq oral once 07/16/2019 07/16/2019 Ended CR tablet 40 mEqIndications: Hypokalemia Active Problems Problem Noted Date C. difficile diarrhea 06/21/2019 Cholangiocarcinoma 06/10/2019 BECCA (acute kidney injury) 05/27/2019 Encounters Date Type Specialty Care Team Description 07/18/2019 Nurse Only Oncology Obie Herrera Cholangiocarcinoma (HCC) (Primary Dx) 07/18/2019 Hospital Encounter Radiology Obie Herrera Cholangiocarcinoma (HCC ) 07/17/2019 Orders Only Oncology Maryjane Schultz Cholangiocarcinoma (HCC) HENOK Sutton (Primary Dx) 07/17/2019 Telephone Oncology Obie Herrera MD 07/16/2019 Office Visit Oncology Obie Herrera Cholangiocarcinoma (HCC) ( Primary Dx); C. difficile diarrhea; BECCA (acute kidney injury) (HCC) 07/16/2019 Infusion Oncology Obie Herrera Cholangiocarcinoma (HCC) (Primary Dx); Hypokalemia; C. 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 difficile diarrhea 06/20/2019 Intake Access N/A 06/20/2019 Telephone Oncology Maryjane Schultz RN 06/19/2019 Telephone Oncology Obie Herrera MD 06/16/2019 Telephone Oncology Obie Herrera Cholangiocarcinoma (HCC) (Primary Dx) 06/12/2019 Orders Only Oncology Obie Herrera MD 06/11/2019 Orders Only Oncology Briseida Thacker, [facility] 05/27/2019 - Hospital Encounter Oncology Samani, Cholangiocarcinoma (HCC) ( Primary Dx); 06/15/2019 MD Franki BECCA (acute kidney injury) (HCC) 05/27/2019 Orders Only General Internal [facility], Medicine MD Franki 01/07/2019 Hospital Encounter Radiology Craig, Cough David Ortega MD 01/07/2019 Transcribe Orders Access Moshe Srinivasan (Primary Dx) David Ortega MD after 07/20/2018 Family History Medical History Relation Name Comments Liver cancer Father Relation Name Status Comments Father Social History Tobacco Use Types Packs/Day Years Used Date Never Smoker 0 0 Smokeless Tobacco: Never Used Alcohol Use Drinks/Week oz/Week Comments Not Currently 0 Glasses of wine 0.0 0 Cans of beer 0 Shots of liquor 0 Standard drinks or equivalent Alcohol Habits Answer Date Recorded How often [...] Vital Signs Vital Sign Reading Time Taken Comments Blood Pressure 121/69 07/18/2019 2:20 PM CDT Pulse 108 07/18/2019 2:20 PM CDT Temperature 35.1 C (95.2 F) 07/18/2019 2:20 PM CDT Respiratory Rate 18 07/18/2019 2:20 PM CDT Oxygen Saturation 99% 07/18/2019 2:20 PM CDT Inhaled Oxygen Concentration - - Weight 72 kg (158 lb 11.7 oz) 07/18/2019 2:20 PM CDT Height 177.8 cm (5' 10") 07/18/2019 2:20 PM CDT Body Mass Index 22.78 07/18/2019 2:20 PM CDT Plan of Treatment Date Type Specialty Care Team Description 07/30/2019 Infusion Oncology Obie Herrera MD [address] [facility] [address] [place] [id number] 08/01/2019 Nurse Only Oncology Obie Herrera MD [address] [facility] [address] [place] [id number] 08/13/2019 Infusion Oncology Obie Herrera MD [facility] [place] [facility] [address] [place] [id number] 08/15/2019 Nurse Only Oncology Obie Herrera MD [facility] [place] [facility] [address] [place] [id number] 08/27/2019 Infusion Oncology Obie Herrera MD [address] [place] [facility] [address] [place] [phone] 08/29/2019 Nurse Only Oncology Obie Herrera MD [address] [place] [facility] [address] [place] [phone] Health Maintenance Due Date Last Done Comments COLONOSCOPY SCREENING 2005 SHINGLES VACCINES (#1) 2005 INFLUENZA VACCINE 06/19/2019 10/18/2018 Implants Implanted Type Area [employer] Device Identifier Shelf Expiration Model / Date Serial / Lot Port A Catheter Procedures Procedure Name Priority Date/Time Associated Diagnosis Comments US ABDOMINAL Routine 07/18/2019 Cholangiocarcinoma (HCC) Results for PARACENTESIS IMAGING 1:25 PM CDT this procedure are in the results section. CLOSTRIDIUM DIFFICILE Routine 07/16/2019 Cholangiocarcinoma (HCC) Results for TOXIN 2:07 PM CDT C. difficile diarrhea this procedure are in the results section. MANUAL DIFFERENTIAL STAT 07/16/2019 Results for 8:52 AM CDT this procedure are in the results section. CBC WITH PLATELET AND STAT 07/16/2019 Cholangiocarcinoma (HCC) Results for DIFFERENTIAL 8:52 AM CDT this procedure are in the results section. ESTIMATED GFR STAT 07/16/2019 Results for 8:10 AM CDT this procedure are in the results section. COMPREHENSIVE STAT 07/16/2019 Cholangiocarcinoma (HCC) Results for METABOLIC PANEL 8:10 AM CDT this procedure are in the results section. URINALYSIS, AUTOMATED STAT 07/16/2019 Cholangiocarcinoma (HCC) Results for WITH MICROSCOPY 8:10 AM CDT this procedure are in the results section. POC GLUCOSE Routine 07/08/2019 Results for 7:51 AM CDT this procedure are in the results section. MANUAL DIFFERENTIAL Routine 07/08/2019 Results for 5:40 AM CDT this procedure are in the results section. ESTIMATED GFR Routine 07/08/2019 Results for 5:40 AM CDT this procedure are in the results section. PHOSPHORUS LEVEL Routine 07/08/2019 Results for 5:40 AM CDT this procedure are in the results section. COMPREHENSIVE Routine 07/08/2019 Results for METABOLIC PANEL 5:40 AM CDT this procedure are in the results section. CBC WITH PLATELET AND Routine 07/08/2019 Results for DIFFERENTIAL 5:40 AM CDT this procedure are in the results section. POC GLUCOSE Routine 07/07/2019 Results for 6:11 PM CDT this procedure are in the results section. POC GLUCOSE Routine 07/07/2019 Results for 11:47 AM CDT this procedure are in the results section. POC GLUCOSE Routine 07/07/2019 Results for 8:22 AM CDT this procedure are in the results section. MANUAL DIFFERENTIAL Routine 07/07/2019 Results for 5:45 AM CDT this procedure are in the results section. ESTIMATED GFR Routine 07/07/2019 Results for 5:45 AM CDT this procedure are in the results section. MAGNESIUM LEVEL Routine 07/07/2019 Results for 5:45 AM CDT this procedure are in the results section. BASIC METABOLIC PANEL Routine 07/07/2019 Results for 5:45 AM CDT this procedure are in the results section. CBC WITH PLATELET AND Routine 07/07/2019 Results for DIFFERENTIAL 5:45 AM CDT this procedure are in the results section. POC GLUCOSE Routine 07/06/2019 Results for 9:39 PM CDT this procedure are in the results section. POC GLUCOSE Routine 07/06/2019 Results for 6:25 PM CDT this procedure are in the results section. POC GLUCOSE Routine 07/06/2019 Results for 1:01 PM CDT this procedure are in the results section. CLOSTRIDIUM DIFFICILE Routine 07/06/2019 Results for TOXIN 11:40 AM CDT this procedure are in the results section. POC GLUCOSE Routine 07/06/2019 Results for 8:14 AM CDT this procedure are in the results section. MANUAL DIFFERENTIAL Routine 07/06/2019 Results for 5:30 AM CDT this procedure are in the results section. CBC WITH PLATELET AND Routine 07/06/2019 Results for DIFFERENTIAL 5:30 AM CDT this procedure are in the results section. ESTIMATED GFR Routine 07/06/2019 Results for 5:01 AM CDT this procedure are in the results section. PHOSPHORUS LEVEL Routine 07/06/2019 Results for 5:01 AM CDT this procedure are in the results section. MAGNESIUM LEVEL Routine 07/06/2019 Results for 5:01 AM CDT this procedure are in the results section. BASIC METABOLIC PANEL Routine 07/06/2019 Results for 5:01 AM CDT this procedure are in the results section. POC GLUCOSE Routine 07/05/2019 Results for 7:37 PM CDT this procedure are in the results section. POC GLUCOSE Routine 07/05/2019 Results for 1:09 PM CDT this procedure are in the results section. MANUAL DIFFERENTIAL Routine 07/05/2019 Results for 5:44 AM CDT this procedure are in the results section. ESTIMATED GFR Routine 07/05/2019 Results for 5:44 AM CDT this procedure are in the results section. COMPREHENSIVE Routine 07/05/2019 Results for METABOLIC PANEL 5:44 AM CDT this procedure are in the results section. CBC WITH PLATELET AND Routine 07/05/2019 Results for DIFFERENTIAL 5:44 AM CDT this procedure are in the results section. POC GLUCOSE Routine 07/04/2019 Results for 10:54 PM CDT this procedure are in the results section. US ABDOMINAL Routine 07/04/2019 Results for PARACENTESIS IMAGING 1:39 PM CDT this procedure are in the results section. ESTIMATED GFR Routine 07/04/2019 Results for 6:05 AM CDT this procedure are in the results section. MAGNESIUM LEVEL Routine 07/04/2019 Results for 6:05 AM CDT this procedure are in the results section. BASIC METABOLIC PANEL Routine 07/04/2019 Results for 6:05 AM CDT this procedure are in the results section. HC COMPLETE BLD COUNT Routine 07/04/2019 Results for W/AUTO DIFF 6:05 AM CDT this procedure are in the results section. POC GLUCOSE Routine 07/03/2019 Results for 12:33 PM CDT this procedure are in the results section. CARCINOEMBRYONIC Routine 07/03/2019 Results for ANTIGEN (CEA) 9:50 AM CDT this procedure are in the results section. POC GLUCOSE Routine 07/03/2019 Results for 8:43 AM CDT this procedure are in the results section. CANCER ANTIGEN 19-9 Routine 07/03/2019 Results for 4:49 AM CDT this procedure are in the results section. MANUAL DIFFERENTIAL Routine 07/03/2019 Results for 4:49 AM CDT this procedure are in the results section. ESTIMATED GFR Routine 07/03/2019 Results for 4:49 AM CDT this procedure are in the results section. MAGNESIUM LEVEL Routine 07/03/2019 Results for 4:49 AM CDT this procedure are in the results section. BASIC METABOLIC PANEL Routine 07/03/2019 Results for 4:49 AM CDT this procedure are in the results section. CBC WITH PLATELET AND Routine 07/03/2019 Results for DIFFERENTIAL 4:49 AM CDT this procedure are in the results section. POC GLUCOSE Routine 07/02/2019 Results for 10:09 PM CDT this procedure are in the results section. POC GLUCOSE Routine 07/02/2019 Results for 5:29 PM CDT this procedure are in the results section. URINALYSIS, AUTOMATED STAT 07/02/2019 Results for WITH MICROSCOPY 12:08 PM CDT this procedure are in the results section. POC GLUCOSE Routine 07/02/2019 Results for 11:52 AM CDT this procedure are in the results section. ESTIMATED GFR Routine 07/02/2019 Results for 9:01 AM CDT this procedure are in the results section. BASIC METABOLIC PANEL Routine 07/02/2019 Results for 9:01 AM CDT this procedure are in the results section. POC GLUCOSE Routine 07/02/2019 Results for 7:49 AM CDT this procedure are in the results section. MANUAL DIFFERENTIAL Routine 07/02/2019 Results for 5:15 AM CDT this procedure are in the results section. PHOSPHORUS LEVEL Routine 07/02/2019 Results for 5:15 AM CDT this procedure are in the results section. MAGNESIUM LEVEL Routine 07/02/2019 Results for 5:15 AM CDT this procedure are in the results section. CBC WITH PLATELET AND Routine 07/02/2019 Results for DIFFERENTIAL 5:15 AM CDT this procedure are in the results section. POC GLUCOSE Routine 07/02/2019 Results for 5:13 AM CDT this procedure are in the results section. POC GLUCOSE Routine 07/02/2019 Results for 12:43 AM CDT this procedure are in the results section. POC GLUCOSE Routine 07/01/2019 Results for 8:11 PM CDT this procedure are in the results section. POC GLUCOSE Routine 07/01/2019 Results for 6:05 PM CDT this procedure are in the results section. POC GLUCOSE Routine 07/01/2019 Results for 12:06 PM CDT this procedure are in the results section. POC GLUCOSE Routine 07/01/2019 Results for 8:37 AM CDT this procedure are in the results section. MANUAL DIFFERENTIAL Routine 07/01/2019 Results for 4:25 AM CDT this procedure are in the results section. ESTIMATED GFR Routine 07/01/2019 Results for 4:25 AM CDT this procedure are in the results section. COMPREHENSIVE Routine 07/01/2019 Results for METABOLIC PANEL 4:25 AM CDT this procedure are in the results section. PHOSPHORUS LEVEL Routine 07/01/2019 Results for 4:25 AM CDT this procedure are in the results section. MAGNESIUM LEVEL Routine 07/01/2019 Results for 4:25 AM CDT this procedure are in the results section. CBC WITH PLATELET AND Routine 07/01/2019 Results for DIFFERENTIAL 4:25 AM CDT this procedure are in the results section. POC GLUCOSE Routine 07/01/2019 Results for 4:14 AM CDT this procedure are in the results section. POC GLUCOSE Routine 07/01/2019 Results for 12:00 AM CDT this procedure are in the results section. POC GLUCOSE Routine 06/30/2019 Results for 8:44 PM CDT this procedure are in the results section. POC GLUCOSE Routine 06/30/2019 Results for 3:51 PM CDT this procedure are in the results section. POC GLUCOSE Routine 06/30/2019 Results for 12:03 PM CDT this procedure are in the results section. POC GLUCOSE Routine 06/30/2019 Results for 9:31 AM CDT this procedure are in the results section. MANUAL DIFFERENTIAL Routine 06/30/2019 Results for 3:00 AM CDT this procedure are in the results section. ESTIMATED GFR Routine 06/30/2019 Results for 3:00 AM CDT this procedure are in the results section. CBC WITH PLATELET AND Routine 06/30/2019 Results for DIFFERENTIAL 3:00 AM CDT this procedure are in the results section. BASIC METABOLIC PANEL Routine 06/30/2019 Results for 3:00 AM CDT this procedure are in the results section. PHOSPHORUS LEVEL Routine 06/30/2019 Results for 3:00 AM CDT this procedure are in the results section. MAGNESIUM LEVEL Routine 06/30/2019 Results for 3:00 AM CDT this procedure are in the results section. POC GLUCOSE Routine 06/30/2019 Results for 12:17 AM CDT this procedure are in the results section. POC GLUCOSE Routine 06/29/2019 Results for 8:02 PM CDT this procedure are in the results section. POC GLUCOSE Routine 06/29/2019 Results for 4:05 PM CDT this procedure are in the results section. POC GLUCOSE Routine 06/29/2019 Results for 11:32 AM CDT this procedure are in the results section. POC GLUCOSE Routine 06/29/2019 Results for 7:36 AM CDT this procedure are in the results section. POC GLUCOSE Routine 06/29/2019 Results for 5:05 AM CDT this procedure are in the results section. ESTIMATED GFR Routine 06/29/2019 Results for 4:00 AM CDT this procedure are in the results section. IONIZED CALCIUM Routine 06/29/2019 Results for 4:00 AM CDT this procedure are in the results section. PHOSPHORUS LEVEL Routine 06/29/2019 Results for 4:00 AM CDT this procedure are in the results section. BASIC METABOLIC PANEL Routine 06/29/2019 Results for 4:00 AM CDT this procedure are in the results section. MAGNESIUM LEVEL Routine 06/29/2019 Results for 4:00 AM CDT this procedure are in the results section. POC GLUCOSE Routine 06/29/2019 Results for 12:19 AM CDT this procedure are in the results section. POC GLUCOSE Routine 06/28/2019 Results for 7:43 PM CDT this procedure are in the results section. POC GLUCOSE Routine 06/28/2019 Results for 3:50 PM CDT this procedure are in the results section. POC GLUCOSE Routine 06/28/2019 Results for 11:38 AM CDT this procedure are in the results section. POC GLUCOSE Routine 06/28/2019 Results for 7:58 AM CDT this procedure are in the results section. US DUPLEX VENOUS LOWER Routine 06/28/2019 Results for EXTREMITY BILATERAL 6:45 AM CDT this procedure are in the results section. POC GLUCOSE Routine 06/28/2019 Results for 4:27 AM CDT this procedure are in the results section. MANUAL DIFFERENTIAL Routine 06/28/2019 Results for 4:25 AM CDT this procedure are in the results section. CBC WITH PLATELET AND Routine 06/28/2019 Results for DIFFERENTIAL 4:25 AM CDT this procedure are in the results section. ESTIMATED GFR Routine 06/28/2019 Results for 4:00 AM CDT this procedure are in the results section. MAGNESIUM LEVEL Routine 06/28/2019 Results for 4:00 AM CDT this procedure are in the results section. PHOSPHORUS LEVEL Routine 06/28/2019 Results for 4:00 AM CDT this procedure are in the results section. BASIC METABOLIC PANEL Routine 06/28/2019 Results for 4:00 AM CDT this procedure are in the results section. POC GLUCOSE Routine 06/27/2019 Results for 11:51 PM CDT this procedure are in the results section. POC GLUCOSE Routine 06/27/2019 Results for 7:28 PM CDT this procedure are in the results section. POC GLUCOSE Routine 06/27/2019 Results for 4:53 PM CDT this procedure are in the results section. POC GLUCOSE Routine 06/27/2019 Results for 12:12 PM CDT this procedure are in the results section. POC GLUCOSE Routine 06/27/2019 Results for 7:42 AM CDT this procedure are in the results section. MANUAL DIFFERENTIAL Routine 06/27/2019 Results for 4:50 AM CDT this procedure are in the results section. CBC WITH PLATELET AND Routine 06/27/2019 Results for DIFFERENTIAL 4:50 AM CDT this procedure are in the results section. POC GLUCOSE Routine 06/27/2019 Results for 4:05 AM CDT this procedure are in the results section. ESTIMATED GFR Routine 06/27/2019 Results for 4:00 AM CDT this procedure are in the results section. COMPREHENSIVE Routine 06/27/2019 Results for METABOLIC PANEL 4:00 AM CDT this procedure are in the results section. PHOSPHORUS LEVEL Routine 06/27/2019 Results for 4:00 AM CDT this procedure are in the results section. MAGNESIUM LEVEL Routine 06/27/2019 Results for 4:00 AM CDT this procedure are in the results section. POC GLUCOSE Routine 06/26/2019 Results for 11:38 PM CDT this procedure are in the results section. POC GLUCOSE Routine 06/26/2019 Results for 7:30 PM CDT this procedure are in the results section. POC GLUCOSE Routine 06/26/2019 Results for 3:33 PM CDT this procedure are in the results section. POC GLUCOSE Routine 06/26/2019 Results for 11:38 AM CDT this procedure are in the results section. POC GLUCOSE Routine 06/26/2019 Results for 8:28 AM CDT this procedure are in the results section. POC GLUCOSE Routine 06/26/2019 Results for 4:19 AM CDT this procedure are in the results section. MANUAL DIFFERENTIAL Routine 06/26/2019 Results for 4:00 AM CDT this procedure are in the results section. ESTIMATED GFR Routine 06/26/2019 Results for 4:00 AM CDT this procedure are in the results section. PHOSPHORUS LEVEL Routine 06/26/2019 Results for 4:00 AM CDT this procedure are in the results section. MAGNESIUM LEVEL Routine 06/26/2019 Results for 4:00 AM CDT this procedure are in the results section. BASIC METABOLIC PANEL Routine 06/26/2019 Results for 4:00 AM CDT this procedure are in the results section. CBC WITH PLATELET AND Routine 06/26/2019 Results for DIFFERENTIAL 4:00 AM CDT this procedure are in the results section. POC GLUCOSE Routine 06/26/2019 Results for 12:38 AM CDT this procedure are in the results section. POC GLUCOSE Routine 06/25/2019 Results for 9:01 PM CDT this procedure are in the results section. POC GLUCOSE Routine 06/25/2019 Results for 4:45 PM CDT this procedure are in the results section. POC GLUCOSE Routine 06/25/2019 Results for 12:59 PM CDT this procedure are in the results section. POC GLUCOSE Routine 06/25/2019 Results for 7:54 AM CDT this procedure are in the results section. PHOSPHORUS LEVEL Routine 06/25/2019 Results for 4:54 AM CDT this procedure are in the results section. MANUAL DIFFERENTIAL Routine 06/25/2019 Results for 4:54 AM CDT this procedure are in the results section. ESTIMATED GFR Routine 06/25/2019 Results for 4:54 AM CDT this procedure are in the results section. MAGNESIUM LEVEL Routine 06/25/2019 Results for 4:54 AM CDT this procedure are in the results section. BASIC METABOLIC PANEL Routine 06/25/2019 Results for 4:54 AM CDT this procedure are in the results section. CBC WITH PLATELET AND Routine 06/25/2019 Results for DIFFERENTIAL 4:54 AM CDT this procedure are in the results section. POC GLUCOSE Routine 06/25/2019 Results for 4:20 AM CDT this procedure are in the results section. POC GLUCOSE Routine 06/25/2019 Results for 12:17 AM CDT this procedure are in the results section. POC GLUCOSE Routine 06/24/2019 Results for 8:33 PM CDT this procedure are in the results section. POC GLUCOSE Routine 06/24/2019 Results for 4:28 PM CDT this procedure are in the results section. POC GLUCOSE Routine 06/24/2019 Results for 12:36 PM CDT this procedure are in the results section. POC GLUCOSE Routine 06/24/2019 Results for 8:14 AM CDT this procedure are in the results section. BLOOD SMEAR CONSULT Routine 06/24/2019 Results for 4:55 AM CDT this procedure are in the results section. MANUAL DIFFERENTIAL Routine 06/24/2019 Results for 4:55 AM CDT this procedure are in the results section. ESTIMATED GFR Routine 06/24/2019 Results for 4:55 AM CDT this procedure are in the results section. TRIGLYCERIDES Routine 06/24/2019 Results for 4:55 AM CDT this procedure are in the results section. PHOSPHORUS LEVEL Routine 06/24/2019 Results for 4:55 AM CDT this procedure are in the results section. MAGNESIUM LEVEL Routine 06/24/2019 Results for 4:55 AM CDT this procedure are in the results section. BASIC METABOLIC PANEL Routine 06/24/2019 Results for 4:55 AM CDT this procedure are in the results section. CBC WITH PLATELET AND Routine 06/24/2019 Results for DIFFERENTIAL 4:55 AM CDT this procedure are in the results section. POC GLUCOSE Routine 06/24/2019 Results for 4:28 AM CDT this procedure are in the results section. POC GLUCOSE Routine 06/24/2019 Results for 1:59 AM CDT this procedure are in the results section. POC GLUCOSE Routine 06/24/2019 Results for 12:00 AM CDT this procedure are in the results section. XR ABDOMEN 1 VW Routine 06/23/2019 Results for PORTABLE 11:48 PM CDT this procedure are in the results section. POC GLUCOSE Routine 06/23/2019 Results for 9:57 PM CDT this procedure are in the results section. POC GLUCOSE Routine 06/23/2019 Results for 3:12 PM CDT this procedure are in the results section. POC GLUCOSE Routine 06/23/2019 Results for 11:32 AM CDT this procedure are in the results section. POC GLUCOSE Routine 06/23/2019 Results for 8:38 AM CDT this procedure are in the results section. MANUAL DIFFERENTIAL Routine 06/23/2019 Results for 3:55 AM CDT this procedure are in the results section. ESTIMATED GFR Routine 06/23/2019 Results for 3:55 AM CDT this procedure are in the results section. BASIC METABOLIC PANEL Routine 06/23/2019 Results for 3:55 AM CDT this procedure are in the results section. CBC WITH PLATELET AND Routine 06/23/2019 Results for DIFFERENTIAL 3:55 AM CDT this procedure are in the results section. POC GLUCOSE Routine 06/22/2019 Results for 9:12 PM CDT this procedure are in the results section. POC GLUCOSE Routine 06/22/2019 Results for 5:50 PM CDT this procedure are in the results section. POC GLUCOSE Routine 06/22/2019 Results for 11:42 AM CDT this procedure are in the results section. POC GLUCOSE Routine 06/22/2019 Results for 7:58 AM CDT this procedure are in the results section. MANUAL DIFFERENTIAL Routine 06/22/2019 Results for 5:00 AM CDT this procedure are in the results section. CBC WITH PLATELET AND Routine 06/22/2019 Results for DIFFERENTIAL 5:00 AM CDT this procedure are in the results section. ESTIMATED GFR Routine 06/22/2019 Results for 4:00 AM CDT this procedure are in the results section. MAGNESIUM LEVEL Routine 06/22/2019 Results for 4:00 AM CDT this procedure are in the results section. BASIC METABOLIC PANEL Routine 06/22/2019 Results for 4:00 AM CDT this procedure are in the results section. POC GLUCOSE Routine 06/21/2019 Results for 9:50 PM CDT this procedure are in the results section. POC GLUCOSE Routine 06/21/2019 Results for 5:55 PM CDT this procedure are in the results section. URINE CULTURE Routine 06/21/2019 Results for 12:30 PM CDT this procedure are in the results section. URINALYSIS SCREEN AND Routine 06/21/2019 Results for MICROSCOPY, WITH 12:26 PM CDT this procedure REFLEX TO CULTURE are in the results section. GASTROINTESTINAL PANEL Routine 06/21/2019 Results for 12:26 PM CDT this procedure are in the results section. POC GLUCOSE Routine 06/21/2019 Results for 11:32 AM CDT this procedure are in the results section. POC GLUCOSE Routine 06/21/2019 Results for 10:36 AM CDT this procedure are in the results section. POC GLUCOSE Routine 06/21/2019 Results for 9:42 AM CDT this procedure are in the results section. POC GLUCOSE Routine 06/21/2019 Results for 8:55 AM CDT this procedure are in the results section. MANUAL DIFFERENTIAL Routine 06/21/2019 Results for 6:25 AM CDT this procedure are in the results section. ESTIMATED GFR Routine 06/21/2019 Results for 6:25 AM CDT this procedure are in the results section. PHOSPHORUS LEVEL Routine 06/21/2019 Results for 6:25 AM CDT this procedure are in the results section. MAGNESIUM LEVEL Routine 06/21/2019 Results for 6:25 AM CDT this procedure are in the results section. COMPREHENSIVE Routine 06/21/2019 Results for METABOLIC PANEL 6:25 AM CDT this procedure are in the results section. PARTIAL THROMBOPLASTIN Routine 06/21/2019 Results for TIME (PTT) 6:25 AM CDT this procedure are in the results section. PROTHROMBIN TIME WITH Routine 06/21/2019 Results for INR 6:25 AM CDT this procedure are in the results section. CBC WITH PLATELET AND Routine 06/21/2019 Results for DIFFERENTIAL 6:25 AM CDT this procedure are in the results section. POC GLUCOSE Routine 06/15/2019 Results for 12:29 PM CDT this procedure are in the results section. POC GLUCOSE Routine 06/15/2019 Results for 8:00 AM CDT this procedure are in the results section. ESTIMATED GFR Routine 06/15/2019 Results for 5:00 AM CDT this procedure are in the results section. BASIC METABOLIC PANEL Routine 06/15/2019 Results for 5:00 AM CDT this procedure are in the results section. HC COMPLETE BLD COUNT Routine 06/15/2019 Results for W/AUTO DIFF 5:00 AM CDT this procedure are in the results section. POC GLUCOSE Routine 06/14/2019 Results for 9:38 PM CDT this procedure are in the results section. POC GLUCOSE Routine 06/14/2019 Results for 9:08 PM CDT this procedure are in the results section. POC GLUCOSE Routine 06/14/2019 Results for 6:03 PM CDT this procedure are in the results section. POC GLUCOSE Routine 06/14/2019 Results for 8:16 AM CDT this procedure are in the results section. ESTIMATED GFR Routine 06/14/2019 Results for 4:30 AM CDT this procedure are in the results section. MAGNESIUM LEVEL Routine 06/14/2019 Results for 4:30 AM CDT this procedure are in the results section. HC COMPLETE BLD COUNT Routine 06/14/2019 Results for W/AUTO DIFF 4:30 AM CDT this procedure are in the results section. BASIC METABOLIC PANEL Routine 06/14/2019 Results for 4:30 AM CDT this procedure are in the results section. POC GLUCOSE Routine 06/13/2019 Results for 9:52 PM CDT this procedure are in the results section. POC GLUCOSE Routine 06/13/2019 Results for 5:53 PM CDT this procedure are in the results section. POC GLUCOSE Routine 06/13/2019 Results for 12:19 PM CDT this procedure are in the results section. POC GLUCOSE Routine 06/13/2019 Results for 8:13 AM CDT this procedure are in the results section. ESTIMATED GFR Routine 06/13/2019 Results for 5:30 AM CDT this procedure are in the results section. COMPREHENSIVE Routine 06/13/2019 Results for METABOLIC PANEL 5:30 AM CDT this procedure are in the results section. HC COMPLETE BLD COUNT Routine 06/13/2019 Results for W/AUTO DIFF 5:30 AM CDT this procedure are in the results section. POC GLUCOSE Routine 06/12/2019 Results for 9:26 PM CDT this procedure are in the results section. POC GLUCOSE Routine 06/12/2019 Results for 5:11 PM CDT this procedure are in the results section. POC GLUCOSE Routine 06/12/2019 Results for 12:17 PM CDT this procedure are in the results section. ESTIMATED GFR Routine 06/12/2019 Results for 5:30 AM CDT this procedure are in the results section. BASIC METABOLIC PANEL Routine 06/12/2019 Results for 5:30 AM CDT this procedure are in the results section. HC COMPLETE BLD COUNT Routine 06/12/2019 Results for W/AUTO DIFF 5:30 AM CDT this procedure are in the results section. POC GLUCOSE Routine 06/11/2019 Results for 9:01 PM CDT this procedure are in the results section. URINALYSIS, AUTOMATED Routine 06/11/2019 Results for WITH MICROSCOPY 8:41 PM CDT this procedure are in the results section. ESTIMATED GFR Routine 06/11/2019 Results for 5:50 PM CDT this procedure are in the results section. MAGNESIUM LEVEL Routine 06/11/2019 Cholangiocarcinoma (HCC) Results for 5:50 PM CDT this procedure are in the results section. COMPREHENSIVE Routine 06/11/2019 Cholangiocarcinoma (HCC) Results for METABOLIC PANEL 5:50 PM CDT this procedure are in the results section. POC GLUCOSE Routine 06/11/2019 Results for 4:59 PM CDT this procedure are in the results section. US ABDOMINAL Routine 06/11/2019 Results for PARACENTESIS IMAGING 3:46 PM CDT this procedure are in the results section. CELL COUNT AND Routine 06/11/2019 Results for DIFFERENTIAL, BODY 3:18 PM CDT this procedure FLUID are in the results section. POC GLUCOSE Routine 06/11/2019 Results for 1:36 PM CDT this procedure are in the results section. POC GLUCOSE Routine 06/11/2019 Results for 8:00 AM CDT this procedure are in the results section. TYPE AND SCREEN Routine 06/11/2019 Results for 4:36 AM CDT this procedure are in the results section. ESTIMATED GFR Routine 06/11/2019 Results for 4:36 AM CDT this procedure are in the results section. BASIC METABOLIC PANEL Routine 06/11/2019 Results for 4:36 AM CDT this procedure are in the results section. HC COMPLETE BLD COUNT Routine 06/11/2019 Results for W/AUTO DIFF 4:36 AM CDT this procedure are in the results section. POC GLUCOSE Routine 06/10/2019 Results for 9:03 PM CDT this procedure are in the results section. POC GLUCOSE Routine 06/10/2019 Results for 5:39 PM CDT this procedure are in the results section. POC GLUCOSE Routine 06/10/2019 Results for 12:41 PM CDT this procedure are in the results section. POC GLUCOSE Routine 06/10/2019 Results for 8:18 AM CDT this procedure are in the results section. ESTIMATED GFR Routine 06/10/2019 Results for 4:59 AM CDT this procedure are in the results section. BASIC METABOLIC PANEL Routine 06/10/2019 Results for 4:59 AM CDT this procedure are in the results section. HC COMPLETE BLD COUNT Routine 06/10/2019 Results for W/AUTO DIFF 4:59 AM CDT this procedure are in the results section. POC GLUCOSE Routine 06/09/2019 Results for 8:55 PM CDT this procedure are in the results section. POC GLUCOSE Routine 06/09/2019 Results for 6:03 PM CDT this procedure are in the results section. POC GLUCOSE Routine 06/09/2019 Results for 12:26 PM CDT this procedure are in the results section. POC GLUCOSE Routine 06/09/2019 Results for 8:36 AM CDT this procedure are in the results section. ESTIMATED GFR Routine 06/09/2019 Results for 4:25 AM CDT this procedure are in the results section. COMPREHENSIVE Routine 06/09/2019 Results for METABOLIC PANEL 4:25 AM CDT this procedure are in the results section. HC COMPLETE BLD COUNT Routine 06/09/2019 Results for W/AUTO DIFF 4:25 AM CDT this procedure are in the results section. POC GLUCOSE Routine 06/08/2019 Results for 8:18 PM CDT this procedure are in the results section. POC GLUCOSE Routine 06/08/2019 Results for 4:39 PM CDT this procedure are in the results section. URINE CULTURE Routine 06/08/2019 Results for 1:12 PM CDT this procedure are in the results section. GRAM STAIN Routine 06/08/2019 Results for 1:12 PM CDT this procedure are in the results section. URINALYSIS SCREEN AND Routine 06/08/2019 Results for MICROSCOPY, WITH 12:25 PM CDT this procedure REFLEX TO CULTURE are in the results section. POC GLUCOSE Routine 06/08/2019 Results for 12:01 PM CDT this procedure are in the results section. POC GLUCOSE Routine 06/08/2019 Results for 7:36 AM CDT this procedure are in the results section. HC COMPLETE BLD COUNT Routine 06/08/2019 Results for W/AUTO DIFF 5:15 AM CDT this procedure are in the results section. ESTIMATED GFR Routine 06/08/2019 Results for 4:00 AM CDT this procedure are in the results section. BASIC METABOLIC PANEL Routine 06/08/2019 Results for 4:00 AM CDT this procedure are in the results section. POC GLUCOSE Routine 06/07/2019 Results for 8:55 PM CDT this procedure are in the results section. POC GLUCOSE Routine 06/07/2019 Results for 5:53 PM CDT this procedure are in the results section. US ABDOMINAL STAT 06/07/2019 Results for PARACENTESIS IMAGING 3:07 PM CDT this procedure are in the results section. POC GLUCOSE Routine 06/07/2019 Results for 12:36 PM CDT this procedure are in the results section. POC GLUCOSE Routine 06/07/2019 Results for 7:40 AM CDT this procedure are in the results section. ESTIMATED GFR Routine 06/07/2019 Results for 5:00 AM CDT this procedure are in the results section. HC COMPLETE BLD COUNT Routine 06/07/2019 Results for W/AUTO DIFF 5:00 AM CDT this procedure are in the results section. BASIC METABOLIC PANEL Routine 06/07/2019 Results for 5:00 AM CDT this procedure are in the results section. POC GLUCOSE Routine 06/06/2019 Results for 10:11 PM CDT this procedure are in the results section. POC GLUCOSE Routine 06/06/2019 Results for 4:58 PM CDT this procedure are in the results section. POC GLUCOSE Routine 06/06/2019 Results for 11:48 AM CDT this procedure are in the results section. POC GLUCOSE Routine 06/06/2019 Results for 7:59 AM CDT this procedure are in the results section. ESTIMATED GFR Routine 06/06/2019 Results for 4:00 AM CDT this procedure are in the results section. BASIC METABOLIC PANEL Routine 06/06/2019 Results for 4:00 AM CDT this procedure are in the results section. POC GLUCOSE Routine 06/05/2019 Results for 8:57 PM CDT this procedure are in the results section. POC GLUCOSE Routine 06/05/2019 Results for 3:57 PM CDT this procedure are in the results section. POC GLUCOSE Routine 06/05/2019 Results for 1:27 PM CDT this procedure are in the results section. ESTIMATED GFR Routine 06/05/2019 Results for 11:26 AM CDT this procedure are in the results section. BASIC METABOLIC PANEL Routine 06/05/2019 Results for 11:26 AM CDT this procedure are in the results section. POC GLUCOSE Routine 06/05/2019 Results for 7:07 AM CDT this procedure are in the results section. POC GLUCOSE Routine 06/04/2019 Results for 9:02 PM CDT this procedure are in the results section. POC GLUCOSE Routine 06/04/2019 Results for 4:35 PM CDT this procedure are in the results section. POC GLUCOSE Routine 06/04/2019 Results for 12:18 PM CDT this procedure are in the results section. POC GLUCOSE Routine 06/04/2019 Results for 7:20 AM CDT this procedure are in the results section. HC COMPLETE BLD COUNT Routine 06/04/2019 Results for W/AUTO DIFF 4:50 AM CDT this procedure are in the results section. ESTIMATED GFR Routine 06/04/2019 Results for 4:42 AM CDT this procedure are in the results section. BASIC METABOLIC PANEL Routine 06/04/2019 Results for 4:42 AM CDT this procedure are in the results section. POC GLUCOSE Routine 06/03/2019 Results for 11:10 PM CDT this procedure are in the results section. POC GLUCOSE Routine 06/03/2019 Results for 10:07 PM CDT this procedure are in the results section. POC GLUCOSE Routine 06/03/2019 Results for 4:32 PM CDT this procedure are in the results section. POC GLUCOSE Routine 06/03/2019 Results for 11:33 AM CDT this procedure are in the results section. POC GLUCOSE Routine 06/03/2019 Results for 8:46 AM CDT this procedure are in the results section. CBC WITH PLATELET AND Routine 06/03/2019 Results for DIFFERENTIAL 4:35 AM CDT this procedure are in the results section. ESTIMATED GFR Routine 06/03/2019 Results for 4:00 AM CDT this procedure are in the results section. BASIC METABOLIC PANEL Routine 06/03/2019 Results for 4:00 AM CDT this procedure are in the results section. POC GLUCOSE Routine 06/02/2019 Results for 8:09 PM CDT this procedure are in the results section. POC GLUCOSE Routine 06/02/2019 Results for 4:55 PM CDT this procedure are in the results section. POC GLUCOSE Routine 06/02/2019 Results for 12:36 PM CDT this procedure are in the results section. US ABDOMINAL Routine 06/02/2019 Results for PARACENTESIS IMAGING 12:32 PM CDT this procedure are in the results section. POC GLUCOSE Routine 06/02/2019 Results for 10:35 AM CDT this procedure are in the results section. POC GLUCOSE Routine 06/02/2019 Results for 8:02 AM CDT this procedure are in the results section. HC COMPLETE BLD COUNT Routine 06/02/2019 Results for W/AUTO DIFF 6:00 AM CDT this procedure are in the results section. ESTIMATED GFR Routine 06/02/2019 Results for 4:00 AM CDT this procedure are in the results section. BASIC METABOLIC PANEL Routine 06/02/2019 Results for 4:00 AM CDT this procedure are in the results section. POC GLUCOSE Routine 06/01/2019 Results for 10:05 PM CDT this procedure are in the results section. POC GLUCOSE Routine 06/01/2019 Results for 5:32 PM CDT this procedure are in the results section. NM LUNG VENTILATION Routine 06/01/2019 Results for PERFUSION 3:47 PM CDT this procedure are in the results section. POC GLUCOSE Routine 06/01/2019 Results for 11:02 AM CDT this procedure are in the results section. POC GLUCOSE Routine 06/01/2019 Results for 7:24 AM CDT this procedure are in the results section. HC COMPLETE BLD COUNT Routine 06/01/2019 Results for W/AUTO DIFF 4:15 AM CDT this procedure are in the results section. ESTIMATED GFR Routine 06/01/2019 Results for 4:00 AM CDT this procedure are in the results section. BASIC METABOLIC PANEL Routine 06/01/2019 Results for 4:00 AM CDT this procedure are in the results section. POC GLUCOSE Routine 05/31/2019 Results for 8:38 PM CDT this procedure are in the results section. POC GLUCOSE Routine 05/31/2019 Results for 5:28 PM CDT this procedure are in the results section. POC GLUCOSE Routine 05/31/2019 Results for 1:29 PM CDT this procedure are in the results section. US DUPLEX VENOUS LOWER Routine 05/31/2019 Results for EXTREMITY BILATERAL 12:15 PM CDT this procedure are in the results section. POC GLUCOSE Routine 05/31/2019 Results for 7:58 AM CDT this procedure are in the results section. HC COMPLETE BLD COUNT Routine 05/31/2019 Results for W/AUTO DIFF 5:10 AM CDT this procedure are in the results section. ESTIMATED GFR Routine 05/31/2019 Results for 4:00 AM CDT this procedure are in the results section. COMPREHENSIVE Routine 05/31/2019 Results for METABOLIC PANEL 4:00 AM CDT this procedure are in the results section. POC GLUCOSE Routine 05/30/2019 Results for 8:40 PM CDT this procedure are in the results section. LACTIC ACID LEVEL, Timed 05/30/2019 Results for SEPSIS - NOW AND 4:54 PM CDT this procedure REPEAT 2X EVERY 3 are in the HOURS results section. POC GLUCOSE Routine 05/30/2019 Results for 4:49 PM CDT this procedure are in the results section. LACTIC ACID LEVEL, Timed 05/30/2019 Results for SEPSIS - NOW AND 1:54 PM CDT this procedure REPEAT 2X EVERY 3 are in the HOURS results section. POC GLUCOSE Routine 05/30/2019 Results for 12:17 PM CDT this procedure are in the results section. ECHOCARDIOGRAM 2D STAT 05/30/2019 Results for COMPLETE W MMODE 11:45 AM CDT this procedure SPECTRAL COLOR DOPPLER are in the (27293) results section. LACTIC ACID LEVEL, Timed 05/30/2019 Results for SEPSIS - NOW AND 11:40 AM CDT this procedure REPEAT 2X EVERY 3 are in the HOURS results section. XR CHEST 1 VW PORTABLE STAT 05/30/2019 Results for 9:10 AM CDT this procedure are in the results section. PROTHROMBIN TIME WITH STAT 05/30/2019 Results for INR 8:20 AM CDT this procedure are in the results section. LACTIC ACID LEVEL STAT 05/30/2019 Results for 8:20 AM CDT this procedure are in the results section. TROPONIN STAT 05/30/2019 Results for 8:20 AM CDT this procedure are in the results section. ESTIMATED GFR STAT 05/30/2019 Results for 8:20 AM CDT this procedure are in the results section. HC COMPLETE BLD COUNT STAT 05/30/2019 Results for W/AUTO DIFF 8:20 AM CDT this procedure are in the results section. MAGNESIUM LEVEL STAT 05/30/2019 Results for 8:20 AM CDT this procedure are in the results section. BASIC METABOLIC PANEL STAT 05/30/2019 Results for 8:20 AM CDT this procedure are in the results section. ECG 12-LEAD STAT 05/30/2019 Results for 8:14 AM CDT this procedure are in the results section. POC GLUCOSE Routine 05/30/2019 Results for 7:58 AM CDT this procedure are in the results section. ESTIMATED GFR Routine 05/30/2019 Results for 4:30 AM CDT this procedure are in the results section. BASIC METABOLIC PANEL Routine 05/30/2019 Results for 4:30 AM CDT this procedure are in the results section. HC COMPLETE BLD COUNT Routine 05/30/2019 Results for W/AUTO DIFF 4:30 AM CDT this procedure are in the results section. POC GLUCOSE Routine 05/29/2019 Results for 9:18 PM CDT this procedure are in the results section. POC GLUCOSE Routine 05/29/2019 Results for 5:09 PM CDT this procedure are in the results section. POC GLUCOSE Routine 05/29/2019 Results for 12:24 PM CDT this procedure are in the results section. ESTIMATED GFR Routine 05/29/2019 Results for 11:13 AM CDT this procedure are in the results section. BASIC METABOLIC PANEL Routine 05/29/2019 Results for 11:13 AM CDT this procedure are in the results section. HC COMPLETE BLD COUNT Routine 05/29/2019 Results for W/AUTO DIFF 11:00 AM CDT this procedure are in the results section. POC GLUCOSE Routine 05/29/2019 Results for 9:19 AM CDT this procedure are in the results section. POC GLUCOSE Routine 05/28/2019 Results for 9:50 PM CDT this procedure are in the results section. POC GLUCOSE Routine 05/28/2019 Results for 4:22 PM CDT this procedure are in the results section. US ABDOMINAL Routine 05/28/2019 Results for PARACENTESIS IMAGING 3:00 PM CDT this procedure are in the results section. POC GLUCOSE Routine 05/28/2019 Results for 11:54 AM CDT this procedure are in the results section. SEDIMENTATION RATE Routine 05/28/2019 Results for 10:55 AM CDT this procedure are in the results section. SODIUM LEVEL, URINE, Routine 05/28/2019 Results for RANDOM 9:54 AM CDT this procedure are in the results section. CREATININE LEVEL, Routine 05/28/2019 Results for URINE, RANDOM 9:54 AM CDT this procedure are in the results section. URINALYSIS SCREEN AND Routine 05/28/2019 Results for MICROSCOPY, WITH 9:54 AM CDT this procedure REFLEX TO CULTURE are in the results section. URINE CULTURE Routine 05/28/2019 Results for 9:54 AM CDT this procedure are in the results section. US RENAL STAT 05/28/2019 Results for 9:11 AM CDT this procedure are in the results section. POC GLUCOSE Routine 05/28/2019 Results for 8:23 AM CDT this procedure are in the results section. POC GLUCOSE Routine 05/28/2019 Results for 12:08 AM CDT this procedure are in the results section. BLOOD CULTURE, AEROBIC Routine 05/27/2019 Results for & ANAEROBIC 11:55 PM CDT this procedure are in the results section. PROTHROMBIN TIME WITH Routine 05/27/2019 Results for INR 11:25 PM CDT this procedure are in the results section. HEMOGLOBIN A1C Routine 05/27/2019 Results for 11:25 PM CDT this procedure are in the results section. HC COMPLETE BLD COUNT Routine 05/27/2019 Results for W/AUTO DIFF 11:25 PM CDT this procedure are in the results section. B NATRIURETIC PEPTIDE Routine 05/27/2019 Results for 11:25 PM CDT this procedure are in the results section. BLOOD CULTURE, AEROBIC Routine 05/27/2019 Results for & ANAEROBIC 11:25 PM CDT this procedure are in the results section. ESTIMATED GFR Routine 05/27/2019 Results for 9:50 PM CDT this procedure are in the results section. BILIRUBIN DIRECT Routine 05/27/2019 Results for 9:50 PM CDT this procedure are in the results section. URIC ACID LEVEL Routine 05/27/2019 Results for 9:50 PM CDT this procedure are in the results section. THYROID STIMULATING Routine 05/27/2019 Results for HORMONE 9:50 PM CDT this procedure are in the results section. T4, FREE Routine 05/27/2019 Results for 9:50 PM CDT this procedure are in the results section. PREALBUMIN LEVEL Routine 05/27/2019 Results for 9:50 PM CDT this procedure are in the results section. MAGNESIUM LEVEL Routine 05/27/2019 Results for 9:50 PM CDT this procedure are in the results section. LIPASE LEVEL Routine 05/27/2019 Results for 9:50 PM CDT this procedure are in the results section. LACTIC ACID LEVEL Routine 05/27/2019 Results for 9:50 PM CDT this procedure are in the results section. CREATINE KINASE, TOTAL Routine 05/27/2019 Results for (CPK) 9:50 PM CDT this procedure are in the results section. COMPREHENSIVE Routine 05/27/2019 Results for METABOLIC PANEL 9:50 PM CDT this procedure are in the results section. XR CHEST 2 VW Routine 01/07/2019 Cough Results for 4:52 PM PRIOR AUTHORIZATION NURSE this procedure are in the results section. after 07/20/2018 Results US Abdominal Paracentesis Imaging (07/18/2019 1:25 PM CDT)Only the most recent of6 resultswithin the time period is included. Specimen Narrative Performed At PROCEDURE: [facility] Ultrasound-guided paracentesis PERFORMING RADIOLOGIST: Gisella Pate MD. ASSISTANTS: None. ANESTHESIA TYPE: Lidocaine 1% was used for local anesthesia. ANTIBIOTICS: None. PRE PROCEDURE DIAGNOSIS: Symptomatic ascites. POST PROCEDURE DIAGNOSIS: Symptomatic ascites status post therapeutic paracentesis. TECHNIQUE: Written informed consent was obtained prior to the procedure. The patient was brought to the ultrasound suite and placed supine on the table. After preliminary ultrasound imaging, the left lower quadrant was prepped and draped in usual sterile fashion. Under real-time ultrasound guidance, 1% lidocaine was used for local anesthesia. Under real-time ultrasound guidance, a 5 Serbian needle catheter system was advanced into the peritoneal space with return of clear yellow fluid. 4 liters of fluid were removed. The catheter was removed and hemostasis was achieved with manual pressure. A sterile occlusive dressing was applied. RAD[facility] DOSE: None. COMPLICATIONS: None. SPECIMENS REMOVED: As above. ESTIMATED BLOOD LOSS: Less than 1 mL BLOOD PRODUCTS ADMINISTERED: None. GRAFTS/IMPLANTS: None IMPRESSION: Successful ultrasound-guided therapeutic paracentesis without immediate complication. [facility]-[id number] Procedure Note Interface, Radiology Results Incoming - 07/18/2019 2:52 PM CDT PROCEDURE: Ultrasound-guided paracentesis PERFORMING RADIOLOGIST: Gisella Pate MD. ASSISTANTS: None. ANESTHESIA TYPE: Lidocaine 1% was used for local anesthesia. ANTIBIOTICS: None. PRE PROCEDURE DIAGNOSIS: Symptomatic ascites. POST PROCEDURE DIAGNOSIS: Symptomatic ascites status post therapeutic paracentesis. TECHNIQUE: Written informed consent was obtained prior to the procedure. The patient was brought to the ultrasound suite and placed supine on the table. After preliminary ultrasound imaging, the left lower quadrant was prepped and draped in usual sterile fashion. Under real-time ultrasound guidance, 1% lidocaine was used for local anesthesia. Under real-time ultrasound guidance, a 5 Serbian needle catheter system was advanced into the peritoneal space with return of clear yellow fluid. 4 liters of fluid were removed. The catheter was removed and hemostasis was achieved with manual pressure. A sterile occlusive dressing was applied. RADIATION DOSE: None. COMPLICATIONS: None. SPECIMENS REMOVED: As above. ESTIMATED BLOOD LOSS: Less than 1 mL BLOOD PRODUCTS ADMINISTERED: None. GRAFTS/IMPLANTS: None IMPRESSION: Successful ultrasound-guided therapeutic paracentesis without immediate complication. [facility]-[id number] Performing Organization Address City/[facility] Phone Number [facility] [address] [place] [phone] C difficile toxin (07/16/2019 2:07 PM CDT)Only the most recent of2 resultswithin the time period is included. Clostridium No Clostridium difficle toxin present [facility] difficile toxin Comment: HOSPITAL Specimen Information Specimen Source: Stool Specimen Site: Nonpreserved Specimen Stool - Nonpreserved Performing Organization Address [facility] Phone Number [facility] DEPARTMENT OF PATHOLOGY AND [address] [place] [phone] Manual differential (07/16/2019 8:52 AM CDT)Only the most recent of17 resultswithin the time period is included. Manual differential PERFORMEDComment: [facility] Blasts previously [facility] reported and reviewed by hematopathologist . Neutrophils 73.0 (H) 39.0 - 69.0 [facility] Lymphocytes 10.0 (L) 25.0 - 45.0 [facility] Monocytes 8.0 0.0 - 10.0 % [facility] Eosinophils 1.0 0.0 - 5.0 % [facility] Basophils 0.0 0.0 - 1.0 % [facility] Metamyelocytes 5 % [facility] Myelocytes 2 % [facility] Promyelocytes 0 % [facility] Nucleated RBC 3 /100 WBC [facility] Blasts 1 (HH) % [facility] Platelet slide review Increased (A) [facility] Dohle bodies Occasional [facility] Toxic granulation Slight [facility] Neutrophils, Slight [facility] vacuolated [facility] Anisocytosis Moderate [facility] Polychromasia Moderate [facility] Tear drop cells Occasional [facility] Ovalocytes Moderate [facility] Enlarged platelets Moderate (A) [facility] Giant platelets Occasional [facility] Specimen Performing Organization Address City/[facility]/Zipcode Phone Number [facility] DEPARTMENT OF PATHOLOGY AND [address] [place] [phone] [facility] [place] [address] [place] [phone] CBC with platelet and differential (07/16/2019 8:52 AM CDT)Only the most recent of36 resultswithin the time period is included. WBC 34.36 (H) 4.50 - 11.00 k/uL [facility] RBC 3.78 (L) 4.40 - 6.00 m/uL [facility] HGB 10.0 (L) 14.0 - 18.0 g/dL [facility] HCT 30.7 (L) 41.0 - 51.0 % [facility] MCV 81.2 (L) 82.0 - 100.0 fL [facility] MCH 26.5 (L) 27.0 - 34.0 pg [facility] MCHC 32.6 31.0 - 37.0 g/dL [facility] RDW - SD 60.8 (H) 37.0 - 55.0 fL [facility] MPV 9.2 8.8 - 13.2 fL [facility] Platelet count 519 (H) 150 - 400 k/uL [facility] Neutrophils 73.0 (H) 39.0 - 69.0 % [facility] Lymphocytes 10.0 (L) 25.0 - 45.0 % [facility] Monocytes 8.0 0.0 - 10.0 % [facility] Eosinophils 1.0 0.0 - 5.0 % [facility] Basophils 0.0 0.0 - 1.0 % [facility] Specimen Urine Performing Organization Address City/State/Zipcode Phone Number [facility] DEPARTMENT OF PATHOLOGY AND [address] [place] [address] GENOMIC MEDICINE [facility] [address] [place] [phone] Estimated GFR (07/16/2019 8:10 AM CDT)Only the most recent of40 resultswithin the time period is included. Estimated GFR 42 (A) mL/min/1.73 [facility] Comment: m2 HOSPITAL CatergoryUnitsInterpretation G1 >=90 Normal or high G2 60-89Mildly decreased [id number] to moderately decreased [id number] to severely decreased G4 15-29Severely decreased G5 <15Kidney failure The eGFR was calculated using the Chronic Kidney Disease Epidemiology Collaboration (CKD-EPI) equation. Interpretation is based on recommendations of the National Kidney Foundation-Kidney Disease Outcomes Quality Initiative (NKF-KDOQI) published in 2014. Specimen Plasma specimen Performing Organization Address City/State/Zipcode Phone Number [facility] DEPARTMENT OF PATHOLOGY AND [address] [place] [address] [facility] [address] [place] [phone] Urinalysis, automated with microscopy (07/16/2019 8:10 AM CDT)Only the most recent of3 resultswithin the time period is included. Pathologist [facility] Color, UA Yellow [facility] Appearance, UA Clear [facility] Specific gravity, UA 1.012 1.001 - 1.035 [facility] pH, UA 6.0 5.0 - 8.5 [facility] Protein, UA Trace (A) Negative [facility] Glucose, UA Negative Negative [facility] Ketones, UA Negative Negative [facility] Bilirubin, UA Negative Negative [facility] Blood, UA Negative Negative [facility] Nitrite, UA Negative Negative [facility] Urobilinogen, UA <2.0 <2.0 [facility] Leukocyte esterase, Negative Negative [facility] UA OUTPATIENT CENTER WBC, UA None seen 0 - 1 /HPF [facility] RBC, UA None seen 0 - 5 /HPF [facility] Bacteria, UA None seen None seen [facility] Yeast, UA None seen [facility] Yeast with None seen [facility] pseudohyphae, UA OUTPATIENT CENTER Specimen Urine Narrative Performed At called with read back to [facility] DEPARTMENT OF PATHOLOGY AND [facility] [place]/ [facility] at07/16/201910:01 MEDICINE by [email or web address]. Performing Organization Address City/State/Zipcode Phone Number [facility] DEPARTMENT OF PATHOLOGY AND [address] [place] [phone] Comprehensive metabolic panel (07/16/2019 8:10 AM CDT)Only the most recent of11 resultswithin the time period is included. Sodium 140 135 - 148 [facility] mEq/L HOSPITAL Potassium 2.1 (LL) 3.5 - 5.0 [facility] mEq/L [facility] Chloride 101 98 - 112 mEq/L [facility] CO2 20 (L) 24 - 31 mEq/L [facility] Anion gap 19@ANIO (H) 7 - 15 mEq/L [facility] BUN 33 (H) 8 - 23 mg/dL [facility] Creatinine 1.68 (H) 0.70 - 1.20 [facility] mg/dL HOSPITAL Glucose 80 65 - 99 mg/dL [facility] Calcium 8.0 (L) 8.8 - 10.2 [facility] mg/dL [facility] Protein 6.0 (L) 6.3 - 8.3 g/dL [facility] Comment: HOSPITAL [place] 4.6-7.0 g/dL 1 week 4.4-7.6 g/dL 7 months-1year5.1-7.3 g/dL 1-2 years5.6-7.5 g/dL >3 years6.0-8.0 g/dL 18-150 6.3-8.3 g/dL Albumin 2.7 (L) 3.5 - 5.0 g/dL [facility] A/G ratio 0.8 0.7 - 3.8 [facility] Alkaline phosphatase 229 (H) 40 - 129 U/L [facility] AST 29 10 - 50 U/L [facility] ALT 25 5 - 50 U/L [facility] Total bilirubin 0.3 0.0 - 1.2 [facility] mg/dL [facility] Specimen Plasma specimen Performing Organization Address City/[facility]/Zipcode Phone Number [facility] DEPARTMENT OF PATHOLOGY AND [address] [place] [phone] [address] POC glucose (07/08/2019 7:51 AM CDT)Only the most recent of157 resultswithin the time period is included. POC glucose 129 (H) 65 - 99 mg/dL [facility] Comment: [facility] Notified RN Meter ID: [id number] Biblical Languages Professor: Miguelangel Reina Specimen Performing Organization Address City/[facility]/Zipcode Phone Number [facility] DEPARTMENT OF PATHOLOGY AND [address] [place] [phone] [address] Phosphorus level (07/08/2019 5:40 AM CDT)Only the most recent of12 resultswithin the time period is included. Phosphorus 2.4 2.4 - 4.5 mg/dL [facility] Specimen Plasma specimen Performing Organization Address City/[facility] Phone Number [facility] DEPARTMENT OF PATHOLOGY AND [address] [place] [phone] Magnesium level (07/07/2019 5:45 AM CDT)Only the most recent of19 resultswithin the time period is included. Magnesium 2.1 1.6 - 2.4 mg/dL [facility] Specimen Plasma specimen Performing Organization Address [facility] Phone Number [facility] DEPARTMENT OF PATHOLOGY AND [address] [place] [phone] Basic metabolic panel (07/07/2019 5:45 AM CDT)Only the most recent of29 resultswithin the time period is included. Pathologist [facility] Sodium 143 135 - 148 mEq/L [facility] Potassium 3.7 3.5 - 5.0 mEq/L [facility] Chloride 108 98 - 112 mEq/L [facility] CO2 20 (L) 24 - 31 mEq/L [facility] Anion gap 15@ANIO 7 - 15 mEq/L [facility] BUN 19 8 - 23 mg/dL [facility] Creatinine 1.05 0.70 - 1.20 mg/dL [facility] Glucose 100 (H) 65 - 99 mg/dL [facility] Calcium 7.3 (L) 8.8 - 10.2 mg/dL [facility] Specimen Plasma specimen Performing Organization Address [facility] Phone Number [facility] DEPARTMENT OF PATHOLOGY AND [address] [place] [address] Carcinoembryonic antigen (CEA) (07/03/2019 9:50 AM CDT) CEA 2.5 0.0 - 3.8 [facility] Comment: ng/mL HOSPITAL Reference range for heavy smokers:0.0 - 5.5 ng/mL The MEAGAN Doyle 8000 CEA immunoassay was used. Results obtained with different assay methods or kits should not be used interchangeably and may be different. Specimen Serum Performing Organization Address City/State/Zipcode Phone Number [facility] DEPARTMENT OF PATHOLOGY AND [address] [place] [address] Cancer antigen 19-9 (07/03/2019 4:49 AM CDT) CA 19-9 1,421 (H) 0 - 35 U/mL [facility] Comment: HOSPITAL The Meagan Doyle 8000 CA19-9 immunoassay was used. Results obtained with different assay methods or kits should not be used interchangeably and may be different. Specimen Plasma specimen Narrative Performed At CA199 added and read back to Kaye Velasquez [facility] DEPARTMENT OF PATHOLOGY AND GENOMIC in [id number] 07/03/2019 12:13 LMID. MEDICINE Performing Organization Address City/[facility] Phone Number [facility] DEPARTMENT OF PATHOLOGY AND [address] [place] [address] Ionized calcium (06/29/2019 4:00 AM CDT) pH 7.50 [facility] Ionized calcium 1.01 (L) 1.11 - 1.32 [facility] mmol/L [facility] Specimen Plasma specimen Performing Organization Address City/[facility]/Zipcode Phone Number [facility] DEPARTMENT OF PATHOLOGY AND [address] [place] [address] Us duplex venous lower extremity (06/28/2019 6:45 AM CDT)Only the most recent of2 resultswithin the time period is included. Specimen Narrative Performed At [facility] Vascular Ultrasound Laboratory Lower Extremity Venous Report [address] [place] [address] [address] [address] Pat.Name:CLARICE MEJIA.ID:[id number] .Date: 06/28/2019 Refer.MD:MARCELA KING MD Exam Time: 6:12:00 AMStudy Type:LE Venous Height:70inWeight: 108lb BSA: 1.61 m2 DOBAge:1955,64Y Sex: MALE Sonogrphr: CARMEN Donaldson, RDCS, RVT/Dede Diaz RDCS, RVT Pat. Stat.:Inpatient Room:[address] TapeVol: KG/CC,CPT - 4: 38840 Echo Event ID:[id number] Order ID:[id number] Reason for Study:Bilateral leg swelling and pain, DVT suspected. Procedures:Colorflow, Grayscale/2D, Pulsed wave Doppler Race: SUMMARY: DUPLEX SCAN OBSERVATIONS Deep VeinsSuperficial Veins RightLeft RightLeft GSV (prox) NormalNormal CFV Normal Normal (above knee) Femoral Normal Normal GSV (dist) Normal Normal Profunda Normal Normal (below knee) Popliteal Normal Normal PT (prox) Normal Not visualizedSSV Normal Normal PT (dist) Normal Normal Peroneal Normal Not Visualized Gastrocs Normal Normal RIGHT:There is normal compressibility with no evidence of echogenic material noted within the lumen of the visualized veins. Color flow and Doppler signals are normal. LEFT: There is normal compressibility with no evidence of echogenic material noted within the lumen of the visualized veins. Color flow and Doppler signals are normal. The proximal posterior tibial and peroneal veins were not visualized due to edema. PRELIMINARY FINDINGS 1. No evidence of venous thrombosis in the visualized veins. PHYSICIAN INTERPRETATION No DVT bilateral legs but poor visualization left calf due to edema Signed 06/29/2019 07:27 AM Richard Dove MD, RPVI Procedure Note Interface, Radiology Results In - 06/29/2019 7:27 AM CDT Vascular Ultrasound Laboratory Lower Extremity Venous Report [id number] [address] Pat.Name: CLARICE MEJIA.ID: [id number] .Date: 06/28/2019 Refer.MD: MARCELA KING MD Exam Time: 6:12:00 AM Study Type:LE Venous Height: 70in Weight: 108lb BSA: 1.61 m2 Age: 3 1955,64Y Sex: MALE Sonogrphr: CARMEN Donaldson, RDCS, RVT/Dede Diaz RDCS, RVT Pat. Stat.:[facility] T[facility] Vol: KG/CC, CPT - 4: 56453 Echo Event ID:[id number] Order ID: [id number] Reason for Study:Bilateral leg swelling and pain, DVT suspected. Procedures:Colorflow, Grayscale/2D, Pulsed wave Doppler Race: SUMMARY: DUPLEX SCAN OBSERVATIONS Deep Veins Superficial Veins Right Left Right Left GSV (prox) Normal Normal CFV Normal Normal (above knee) Femoral Normal Normal GSV (dist) Normal Normal Profunda Normal Normal (below knee) Popliteal Normal Normal PT (prox) Normal Not visualized SSV Normal Normal PT (dist) Normal Normal Peroneal Normal Not Visualized Gastrocs Normal Normal RIGHT: There is normal compressibility with no evidence of echogenic material noted within the lumen of the visualized veins. Color flow and Doppler signals are normal. LEFT: There is normal compressibility with no evidence of echogenic material noted within the lumen of the visualized veins. Color flow and Doppler signals are normal. The proximal posterior tibial and peroneal veins were not visualized due to edema. PRELIMINARY FINDINGS 1. No evidence of venous thrombosis in the visualized veins. PHYSICIAN INTERPRETATION No DVT bilateral legs but poor visualization left calf due to edema Signed 06/29/2019 07:27 AM Richard Dove MD, RPVI Performing Organization Address City/State/Zipcode Phone Number [facility] [address] [place] [address] Blood smear consult (06/24/2019 4:55 AM CDT) Blood smear Done [facility] consult Comment: HOSPITAL Leukopenia with left shift granulocytes, and rare blasts (2%), consistent with Granx treatment effect.Reviewed by Quincy Walsh M.D. Blast results called to and read back by Ibrahima Ceballos/Coni at06/25/2019 10:33 by _AD_. Specimen Performing Organization Address City/State/Zipcode Phone Number [facility] DEPARTMENT OF PATHOLOGY AND [address] [place] [phone] [address] Triglycerides (06/24/2019 4:55 AM CDT) Triglycerides 143 <150 mg/dL [facility] Specimen Plasma specimen Performing Organization Address City/[facility]/Zipcode Phone Number [facility] DEPARTMENT OF PATHOLOGY AND [address] [place] [phone] [address] XR Abdomen 1 Vw Portable (06/23/2019 11:48 PM CDT) Specimen Narrative Performed At EXAMINATION:XR ABDOMEN 1 VW PORTABLE [facility] CLINICAL HISTORY:confirm ngt placement COMPARISON:None. IMPRESSION: 1.Nasogastric tube extends into the stomach. The bowel gas pattern is nonspecific. 2.Surgical clips overlie the right upper quadrant. 3.Spondylosis lower lumbar spine. [facility]-[id number] Procedure Note Interface, Radiology Results Incoming - 06/24/2019 12:31 AM CDT EXAMINATION: XR ABDOMEN 1 VW PORTABLE CLINICAL HISTORY: confirm ngt placement COMPARISON: None. IMPRESSION: 1. Nasogastric tube extends into the stomach. The bowel gas pattern is nonspecific. 2. Surgical clips overlie the right upper quadrant. 3. Spondylosis lower lumbar spine. [facility]-[id number] Performing Organization Address [facility] Phone Number [facility] [address] [place] [address] Urine culture (06/21/2019 12:30 PM CDT)Only the most recent of3 resultswithin the time period is included. Pathologist [facility] Urine culture SEE COMMENTComment: [facility] Bacteriuria screen HOSPITAL negative. Specimen Performing Organization Address City/[facility]/Zipcode Phone Number [facility] DEPARTMENT OF PATHOLOGY AND [address] [place] [phone] [address] Urinalysis screen and microscopy, with reflex to culture (06/21/2019 12:26 PM CDT)Only the most recent of3 resultswithin the time period is included. Specimen site Clean catch [facility] Color, UA Yellow [facility] Appearance, UA Hazy [facility] Specific gravity, 1.012 1.001 - 1.035 [facility] pH, UA 5.0 5.0 - 8.5 [facility] Protein, UA Negative Negative [facility] Glucose, UA Negative Negative [facility] Ketones, UA Trace (A) Negative [facility] Bilirubin, UA Negative Negative [facility] Blood, UA Small (A) Negative [facility] Nitrite, UA Negative Negative [facility] Urobilinogen, UA <2.0 <2.0 [facility] Leukocyte esterase, Negative Negative [facility] WBC, UA 1 0 - 1 /HPF [facility] RBC, UA 1 0 - 5 /HPF [facility] Bacteria, UA Few None seen [facility] Yeast, UA None seen [facility] Yeast with None seen [facility] pseudohyphae, HOSPITAL Granular casts, UA 6 (H) 0 - 1 /LPF [facility] [facility] [place] Hyaline casts, UA 3 /LPF [facility] Specimen Urine Performing Organization Address City/State/Zipcode Phone Number [facility] DEPARTMENT OF PATHOLOGY AND [address] [place] [address] GENOMIC MEDICINE [address] [address] Gastrointestinal panel (06/21/2019 12:26 PM CDT) Gastrointestinal panel Positive for C. difficile toxin LAUREL FORK LUTHERAN Negative for all other pathogens tested: HOSPITAL Negative for Salmonella Negative for Campylobacter Negative for Diarrheagenic E coli/Shigella Negative for Shiga-like toxin-producing E coli Negative for Plesiomonas shigelloides Negative for Yersinia enterocolitica Negative for Vibrio species Negative for Cryptosporidium Negative for Giardia lamblia Negative for Cyclospora cayeteanensis Negative for Entamoeba histolytica Negative for Adenovirus F 40/41 Negative for Astrovirus Negative for Norovirus GI/GII Negative for Rotavirus A Negative for Sapovirus Negative for E coli 0157 This real-time PCR assay detects the presence of nucleic acids (RNA or DNA) for the gastrointestinal pathogens listed. A result of "Not-detected" does not exclude the possibility of the presence of one or more pathogens at concentrations less than the detectable limits of the assay. (A) Comment: Specimen Information Specimen Source: Stool Specimen Site: Nonpreserved Specimen Stool - Nonpreserved Performing Organization Address [facility] Phone Number [facility] DEPARTMENT OF PATHOLOGY AND [address] [place] [phone] [place] [phone] Partial thromboplastin time, activated (06/21/2019 6:25 AM CDT) Pathologist [facility] [place] PTT 31.5 23.0 - 36.0 [facility] Comment: [facility] PTT therapeutic range for unfractionated heparin is 61.0-112.0 seconds which corresponds to Anti-Xa 0.3-0.7 U/ml. Specimen Blood Performing Organization Address [facility] Phone Number [facility] DEPARTMENT OF PATHOLOGY AND [address] [place] [address] Prothrombin time with INR (06/21/2019 6:25 AM CDT)Only the most recent of3 resultswithin the time period is included. [facility] Prothrombin time 12.7 11.5 - 14.5 [facility] INR 1.0 LAUREL FORK Comment: LUTHERAN The International Normalized Ratio (INR) is a therapeutic HOSPITAL monitoring tool for patients who are stable on oral anticoagulant therapy. An INR of 2.0-3.0 is suggested for deep vein thrombosis/pulmonary embolism. Specimen Blood Performing Organization Address [facility] Phone Number [facility] DEPARTMENT OF PATHOLOGY AND [address] [place] [address] Cell count and differential, body fluid (06/11/2019 3:18 PM CDT) Pathologist [facility] Misc fluid type Ascitic [facility] Color, fluid Yellow [facility] Appearance, fluid Clear [facility] RBC, fluid SEE /CMM [facility] COMMENTComment: HOSPITAL 2+ (500 - 10,000 RBC/CMM) Nucleated cells, 303 /CMM [facility] Fluid mononuclear See Diff [facility] Lymphocytes, fluid 51 % [facility] Mesothelial cells, 27 % [facility] Macrophages, fluid 22 % [facility] Specimen Fluid Performing Organization Address City/[facility] Phone Number [facility] DEPARTMENT OF PATHOLOGY AND [address] [place] [phone] [place] [address] Type and screen (06/11/2019 4:36 AM CDT) ABO grouping AB [facility] Rh type POS [facility] Antibody screen (gel) NEG [facility] Specimen Blood Performing Organization Address [facility] Phone Number [facility] DEPARTMENT OF PATHOLOGY AND [address] [place] [address] Gram stain (06/08/2019 1:12 PM CDT) Gram stain result Rare WBC's [facility] Gram positive rods [facility] Comment: Specimen Information Specimen Source: Urine Specimen Site: Lao Specimen Urine - Lao Performing Organization Address [facility] Phone Number [facility] DEPARTMENT OF PATHOLOGY AND [address] [place] [phone] NM Lung Ventilation Perfusion (06/01/2019 3:47 PM [...] Very low probability of acute pulmonary embolism. [facility] Procedure Note Hm Interface, Radiology Results Incoming - 06/01/2019 4:40 [...] Very low probability of acute pulmonary embolism. [facility] Performing Organization Address City/State/Zipcode Phone Number [facility] [address] [place] [address] Lactic acid level, SEPSIS - Now and repeat 2x every 3 hours (05/30/2019 4:54 PM CDT)Only the most recent of3 resultswithin the time period is included. Lactic acid 3.1 (H) 0.5 - 2.2 mmol/L [facility] Specimen Blood Performing Organization Address City/State/Zipcode Phone Number [facility] DEPARTMENT OF PATHOLOGY AND [address] [place] [address] GEN[address] [address] Echocardiogram complete w contrast and 3D if needed (05/30/2019 11:45 AM CDT) Specimen Narrative Performed At [facility] Echocardiography Report [address] [facility] [address], [place] [address] Pat.Name:CLARICE MEJIA Pat.ID:[id number] St.Date: 05/30/2019 Refer.MD:KEENA OZUNA MD Exam Time: 11:25:00 AM Study Type:Routine Echo Height:70inWeight: 201lb BSA: 2.09 m2 DOBAge:1955,64Y Sex: MALEBP:108/60 HR:118 bpm Sonogrphr: Ashleigh Tony RDCS Pat. Stat.:Inpatient Room:[address] Study Status:Final Echo Event ID:[id number] Order ID:[id number] Reason for Study:Hypotension or Hemodynamic Instability - [...] PA systolic pressure. MEASUREMENTS: 2D Parasternal Long [place] Ds3 cmLVPWd1 cm LVOT 2.3 cmAo An2.3 cm LVIDd4.1 cmIndex2 cm/m Ao Rtd 3.7 cm Index1.8 cm/m LVIDs2.8 cm LV Ysrz185.7 g(122-174) LV%fs 31.9 % LVM Index 59.6 [...] 05/30/2019 3:34 PM CDT Echocardiography Report [address] [address] Pat.Name: CLARICE MEJIA Pat.ID: [id number] .Date: 05/30/2019 Refer.MD: KEENA OZUNA MD Exam Time: 11:25:00 AM Study Type:Routine Echo Height: 70in Weight: 201lb BSA: 2.09 m2 Age: 3 1955,64Y Sex: MALE BP: 108/60 HR: 118 bpm Sonogrphr: Ashleigh Tony [facility] Pat. Stat.:Inpatient Room: [address] Study Status:Final Echo Event ID:[id number] Order ID: [id number] Reason for Study:Hypotension or Hemodynamic Instability - [...] PA systolic pressure. MEASUREMENTS: 2D Parasternal Long [place] Ds 3 cm LVPWd 1 cm [...] Organization Address City/State/Zipcode Phone Number [facility] [address] [place] [address] XR Chest 1 Vw Portable (05/30/2019 9:10 AM CDT) Specimen Narrative Performed At EXAMINATION:XR CHEST 1 VW PORTABLE [facility] CLINICAL HISTORY:Hypotension COMPARISON:January 07 IMPRESSION: 1. Portacatheter is stable. 2. There has been interval development of mild bibasilar atelectasis. No confluent infiltrate or effusion is demonstrated. 3. Vasculature is within normal limits. [facility]-[id number] Procedure Note Interface, Radiology Results Incoming - 05/30/2019 9:19 AM CDT EXAMINATION: XR CHEST 1 VW PORTABLE CLINICAL HISTORY: Hypotension COMPARISON: January 07 IMPRESSION: 1. Portacatheter is stable. 2. There has been interval development of mild bibasilar atelectasis. No confluent infiltrate or effusion is demonstrated. 3. Vasculature is within normal limits. [facility]-[id number] Performing Organization Address City/[facility]/Zipcode Phone Number [facility] [address] [place] [address] Troponin (05/30/2019 8:20 AM CDT) Troponin 0.014 0.000 - 0.040 [facility] Comment: ng/mL [facility] changed methodology effective: 03/25/2019 at 10:00 am The new method has a 99th percentile cutoff of 0.040 ng/mL Specimen Plasma specimen Narrative Performed At [facility]OP PT added per Heydi Josue at [facility] DEPARTMENT OF PATHOLOGY AND [facility] 08 05/30/[address] Performing Organization Address [facility] Phone Number [facility] DEPARTMENT OF PATHOLOGY AND [address] [place] [phone] [place] [phone] Lactic acid level (05/30/2019 8:20 AM CDT)Only the most recent of2 resultswithin the time period is included. Lactic acid 2.7 (H) 0.5 - 2.2 mmol/L [facility] Specimen Plasma specimen Narrative Performed At [email or web address] TROP PT added per Heydi Josue at [facility] DEPARTMENT OF PATHOLOGY AND GENOMIC 05/30/[address] Performing Organization Address [facility] Phone Number [facility] DEPARTMENT OF PATHOLOGY AND [address] [place] [phone] [place] [phone] ECG 12 lead (05/30/2019 8:14 AM CDT) Ventricular rate 116 [facility] Atrial rate 116 [facility] WI interval 180 [facility] QRSD interval 74 [facility] QT interval 412 [facility] QTC interval 572 [facility] P axis 1 45 [facility] QRS axis 1 46 [facility] T wave axis 61 [facility] EKG impression Sinus [facility] MUSE tachycardia-Prolonged QT-Abnormal ECG-No previous ECGs available-Electronicall y Signed By Latoya VAN, Gerson Francisco ([id number]) on 05/30/2019 9:16:23 PM Specimen Narrative Performed At Performing Organization Address City/State/Zipcode Phone Number [facility] MUSE [address] [place] [address] Sedimentation rate (05/28/2019 10:55 AM CDT) Sedimentation rate 67 (H) 0 - 10 mm/hr [facility] Specimen Blood Performing Organization Address City/State/Zipcode Phone Number [facility] DEPARTMENT OF PATHOLOGY AND [address] [place] [address] Sodium level, urine, random (05/28/2019 9:54 AM CDT) Sodium, urine, random 26 mEq/L [facility] Specimen Urine Performing Organization Address City/[facility]/Zipcode Phone Number [facility] DEPARTMENT OF PATHOLOGY AND [address] [place] [address] Creatinine level, urine, random (05/28/2019 9:54 AM CDT) Creatinine, urine, 170 mg/dL [facility] Specimen Urine Performing Organization Address City/[facility]/Zipcode Phone Number [facility] DEPARTMENT OF PATHOLOGY AND [address] [place] [address] US Renal (05/28/2019 9:11 AM CDT) Specimen Narrative Performed At Renal ultrasound, 05/28/2019 10:15 AM [facility] Clinical history: Acute renal failure Comparison: None Technique: Grayscale and color Doppler ultrasound. Findings: Right kidney: 10.2 x 5.5 x 6 cm. Cortex thickness 1.2 cm. Normal kidney. Left kidney: 10.7 x 5.7 x 5.5 cm. Cortex thickness 1.2 cm. Two simple cysts measuring 2 cm in diameter. Otherwise, normal. Bladder: Unremarkable. The patient did not void for postvoid volume calculation. Zsdfn-ki-[id number] volume pelvic ascites. Impression: 1.No acute abnormality of the kidneys. Specifically, no evidence of obstruction. 2.Small to moderate pelvic ascites. Procedure Note Interface, Radiology Results Incoming - 05/28/2019 10:20 AM [...] did not void for postvoid volume calculation. Mpobl-wd-[id number] volume pelvic ascites. Impression: 1. No acute abnormality of the kidneys. Specifically, no evidence of obstruction. 2. Small to moderate pelvic ascites. Performing Organization Address [facility] Phone Number [address] [address] Blood culture, aerobic & anaerobic (05/27/2019 11:55 PM CDT)Only the most recent of2 resultswithin the time period is included. Pathologist [facility] [place] Blood culture No growth after 5 days of incubation. [facility] isolate Comment: HOSPITAL Specimen Information Specimen Source: Blood Specimen Site: Unspecified Specimen Blood Performing Organization Address [facility] Phone Number [facility] DEPARTMENT OF PATHOLOGY AND [address] [place] [phone] [place] [phone] B natriuretic peptide (05/27/2019 11:25 PM CDT) Pathologist [facility] BNP 14 0 - 100 pg/mL [facility] Specimen Blood Performing Organization Address [facility] Phone Number [facility] DEPARTMENT OF PATHOLOGY AND [address] [place] [phone] [place] [address] Hemoglobin A1c (05/27/2019 11:25 PM CDT) Pathologist [facility] Hemoglobin A1C 7.3 (H) 4.0 - 5.6 % [facility] Comment: HOSPITAL HbA1c cutoffs for diagnosing diabetes: 4.0% - 5.6%=normal 5.7% - 6.4%=increased risk for diabetes (prediabetes) >=6.5%=diabetes Goals for glycemic control (ADA 2016) < 7.0%Target for non adults with diabetes. More or less stringent targets may be appropriate for individual patients. <7.5% Target for Children and adolescents with type 1 diabetes. Specimen Blood Performing Organization Address [facility]/Zipcode Phone Number [facility] DEPARTMENT OF PATHOLOGY AND [address] [place] [phone] [place] [address] Uric acid level (05/27/2019 9:50 PM CDT) Uric acid 6.7 3.4 - 7.0 mg/dL [facility] Specimen Blood Performing Organization Address City/[facility] Phone Number [facility] DEPARTMENT OF PATHOLOGY AND [address] [place] [phone] [place] [address] Thyroid stimulating hormone (05/27/2019 9:50 PM CDT) TSH 5.46 (H) 0.27 - 4.20 uIU/mL [facility] Specimen Blood Performing Organization Address City/[facility] Phone Number [facility] DEPARTMENT OF PATHOLOGY AND [address] [place] [phone] [place] [address] T4, free (05/27/2019 9:50 PM CDT) T4, free 1.4 0.9 - 1.7 ng/dL [facility] Specimen Blood Performing Organization Address [facility] Phone Number [facility] DEPARTMENT OF PATHOLOGY AND [address] [place] [phone] [address] Prealbumin level (05/27/2019 9:50 PM CDT) Prealbumin 10 (L) 16 - 32 mg/dL [facility] Specimen Serum Performing Organization Address City/[facility] Phone Number [facility] DEPARTMENT OF PATHOLOGY AND [address] [place] [phone] [address] Lipase level (05/27/2019 9:50 PM CDT) Lipase 25 13 - 60 U/L [facility] Specimen Blood Performing Organization Address City/[facility] Phone Number [facility] DEPARTMENT OF PATHOLOGY AND [address] [place] [phone] [address] Creatine kinase, total (CPK) (05/27/2019 9:50 PM CDT) Creatine kinase 185 39 - 308 U/L [facility] Specimen Blood Performing Organization Address City/State/Zipcode Phone Number [facility] DEPARTMENT OF PATHOLOGY AND [address] [place] [address] [facility] [address] [place] [address] Bilirubin direct (05/27/2019 9:50 PM CDT) Bilirubin direct <0.2 0.0 - 0.3 mg/dL [facility] Specimen Blood Performing Organization Address [facility] Phone Number [facility] DEPARTMENT OF PATHOLOGY AND [address] [place] [address] [place] [phone] [place] [address] XR Chest 2 Vw (01/07/2019 4:52 PM PRIOR AUTHORIZATION NURSE) Specimen Narrative Performed At EXAMINATION:XR CHEST 2 VW [facility] CLINICAL HISTORY:R05 Cough, COUGH COMPARISON:None IMPRESSION: Lungs are clear. Cardiothymic is also is within normal limits. Right IJ line is seen with its tip in lower SVC. Suspicious osseous lesion is not identified. [facility]-[id number] Procedure Note Interface, Radiology Results Incoming - 01/07/2019 4:57 PM PRIOR AUTHORIZATION NURSE EXAMINATION: XR CHEST 2 VW CLINICAL HISTORY: R05 Cough, COUGH COMPARISON: None IMPRESSION: Lungs are clear. Cardiothymic is also is within normal limits. Right IJ line is seen with its tip in lower SVC. Suspicious osseous lesion is not identified. 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
--- OUTSIDE RECORDS SUMMARY | 2019-07-21 20:52 | XMS REPORT | Clinical Summary ---
:[address] 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 12.5cmx [id number] - [id number] Pain Abdomen MISTY PHAN [id number] 09/10/2020 [id number] / Implanted: Qty: 2 on 08/14/2018 by Víctor Sam MD [facility]/ / marisol [id number] r Procedures Procedure Name Priority Date/Time Associated Comments Diagnosis PERMANENT LAB REPORT - 06/10/2019 12:02 SCAN PM CDT INTRAOPERATIVE PATH 09/25/2018 4:36 REPORT - SCAN 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 INTRAOPERATIVE PATH 09/25/2018 4:36 REPORT - SCAN 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 RHYTHM STRIP - SCAN 08/27/2018 9:10 AM [...] 354 ms QTC Calculation(Bazett) 465 ms P Slayden 33 degrees R Slayden 18 degrees T Slayden 71 degrees Sinus tachycardia Otherwise normal ECG [...] 332 ms QTC Calculation(Bazett) 457 ms P Slayden 70 degrees R Slayden 57 degrees T Slayden 22 degrees Sinus tachycardia Nonspecific ST abnormality [...] 350 ms QTC Calculation(Bazett) 473 ms P Slayden 40 degrees R Slayden -8 degrees T Slayden 84 degrees Sinus tachycardia with Premature atrial complexes Cannot rule out Inferior infarct , age undetermined Abnormal ECG No previous ECGs available ECG 12-LEAD Routine 07/30/2018 10:54 AM CDT after 07/20/2018 Results PERMANENT LAB REPORT - SCAN (06/10/2019 12:02 PM CDT) Narrative Performed At INTRAOPERATIVE PATH REPORT - SCAN (09/25/2018 4:36 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)Only the most recent of2 resultswithin the time period is included. Narrative Performed At RHYTHM STRIP - SCAN (08/27/2018 9:10 AM CDT) Narrative Performed At POC-Glucose meter (08/23/2018 12:42 PM CDT)Only the most recent of44 resultswithin the time period is included. POC-Glucose Meter 200 (H)Comment: TESTED AT 70 - 110 mg/dL [facility] [id number] [facility] [id number] Specimen Blood Performing Organization Address City/State/Zipcode Phone Number [facility] [address] [place] [address] CENTER Calcium, Ionized (08/23/2018 4:15 AM CDT)Only the most recent of9 resultswithin the time period is included. Calcium, Ion 0.99 (L) 1.12 - 1.27 mmol/L [facility] pH, Blood 7.51 [facility] Specimen Blood Performing Organization Address City/State/Zipcode Phone Number [facility] [address] [place] [address] [phone] CENTER CBC with platelet count + automated diff (08/23/2018 4:15 AM CDT)Only the most recent of6 resultswithin the time period is included. WBC 11.8 (H) 3.5 - 10.5 K/L [facility] RBC 2.97 (L) 4.63 - 6.08 M/L [facility] Hemoglobin 9.3 (L) 13.7 - 17.5 GM/DL [facility] Hematocrit 28.5 (L) 40.1 - 51.0 % [facility] MCV 96.0 (H) 79.0 - 92.2 fL [facility] MCH 31.3 25.7 - 32.2 pg [facility] MCHC 32.6 32.3 - 36.5 GM/DL [facility] RDW 16.4 (H) 11.6 - 14.4 % [facility] Platelets 383 150 - 450 K/CU MM [facility] MPV 10.3 9.4 - 12.4 fL [facility] nRBC 0 0 - 0 /100 WBC [facility] % Neutros 66 % [facility] % Lymphs 18 % [facility] % Monos 11 % [facility] % Eos 1 % [facility] % Baso 1 % [facility] # Neutros 7.75 (H) 1.78 - 5.38 K/L [facility] # Lymphs 2.09 1.32 - 3.57 K/L [facility] # Monos 1.25 (H) 0.30 - 0.82 K/L [facility] # Eos 0.13 0.04 - 0.54 K/L [facility] # Baso 0.06 0.01 - 0.08 K/L [facility] Immature Granulocytes-Relative 5 (H) 0 - 1 % [facility] Specimen Blood Performing Organization Address City/[facility] Cent[facility] Phone Number [address] [address] CENTER Phosphorus (08/23/2018 4:15 AM CDT)Only the most recent of18 resultswithin the time period is included. Phosphorus 3.2 2.3 - 4.7 mg/dL [facility] Specimen Blood Performing Organization Address City/[facility] Cent[facility]ode Phone Number [address] [address] CENTER Magnesium (08/23/2018 4:15 AM CDT)Only the most recent of11 resultswithin the time period is included. Magnesium 1.7 1.6 - 2.6 mg/dL [facility] Specimen Blood Performing Organization Address City/[facility] Cent[facility]ode Phone Number [address] [address] [phone] CENTER Hepatic function panel (08/23/2018 4:15 AM CDT)Only the most recent of9 resultswithin the time period is included. Protein, Total 5.9 (L) 6.0 - 8.3 gm/dL [facility] Albumin 3.1 (L) 3.5 - 5.0 g/dL [facility] Total Bilirubin 0.8 0.2 - 1.2 mg/dL [facility] Bilirubin, Direct 0.6 (H) 0.1 - 0.5 mg/dL [facility] Alkaline Phosphatase 90 40 - 150 U/L [facility] AST 33 5 - 34 U/L [facility] ALT 63 (H) 6 - 55 U/L [facility] Specimen Blood Performing Organization Address City/[facility] Cent[facility]ode Phone Number [address] [address] CENTER Basic Metabolic Panel (08/23/2018 4:15 AM CDT)Only the most recent of12 resultswithin the time period is included. Sodium 135 (L) 136 - 145 meq/L [facility] Potassium 3.6 3.5 - 5.1 meq/L [facility] Chloride 102 98 - 107 meq/L [facility] CO2 24 22 - 29 meq/L [facility] BUN 13 7 - 21 mg/dL [facility] Creatinine 1.08 0.57 - 1.25 mg/dL [facility] Glucose 108 (H) 70 - 105 mg/dL [facility] Calcium 8.4 8.4 - 10.2 mg/dL [facility] EGFR 69Comment: ESTIMATED GFR IS mL/min/1.73 sq m [facility] NOT ACCURATE CREATININE [facility] CLEARANCE IN PREDICTING GLOMERULAR FILTRATION RATE. ESTIMATED GFR IS NOT APPLICABLE FOR DIALYSIS PATIENTS. Specimen Blood Performing Organization Address City/[facility]/Zipcode Phone Number [address] [place], [place] [address] [phone] CENTER Manual Differential (08/22/2018 5:33 AM CDT)Only the most recent of3 resultswithin the time period is included. % Neutros 77 % [facility] % Lymphs 10 % [facility] % Monos 11 % [facility] % Myelo 1 (H) 0 - 0 % [facility] % Bands 1 0 - 10 % [facility] # Neutros 8.70 (H) 1.78 - 5.38 K/ul [facility] # Lymphs 1.13 (L) 1.32 - 3.57 K/ul [facility] # Monos 1.24 (H) 0.30 - 0.82 K/uL [facility] # Myelo 0.11 (H) 0.00 - 0.00 K/uL [facility] # Bands 0.11 0.00 - 0.80 K/uL [facility] Total Counted 100 [facility] RBC Morphology Normal [facility] WBC Morphology Normal [facility] Platelet Morphology Normal [facility] Artifact Present [facility] Platelet Conc Adequate [facility] Specimen Blood Narrative Performed At Received comment: [facility] User comments: Slide comments: Performing Organization Address City/State/Zipcode Phone Number [address] [address] [phone] [place] XR chest 1 view portable / bedside [...] MD Report Verified Date/Time:08/22/2018 05:00:09 Reading Location: [address] Transitional Reading Room Procedure Note Interface, [...] Report Verified Date/Time: 08/22/2018 05:00:09 Reading Location: [address] Transitional Reading Room Performing Organization Address City/State/Zipcode Phone Number [facility] Sputum Culture + Gram Stain (08/21/2018 2:21 PM CDT) Result 3+ Normal respiratory talat [facility] Gram Stain Result <1+ WBCs [facility] Gram Stain Result 0-5 epithelial cells [facility] Gram Stain Result 1+ gram positive cocci in [facility] chains, pairs and clusters [facility] Specimen Sputum - Expectorated Performing Organization Address City/State/Zipcode Phone Number [facility] [address] [place] [address] chest for pulmonary embolus (08/20/2018 4:29 PM CDT) Specimen Narrative Performed At FINAL REPORT GE [facility] CT Chest PE Protocol dated 08/20/2018 Clinical [...] MD Report Verified Date/Time:08/20/2018 16:47:26 Reading Location: [facility] C013Y CT Body Reading Room Procedure [...] Report Verified Date/Time: 08/20/2018 16:47:26 Reading Location: [address] Body Reading Room Performing Organization Address [facility] Phone Number [facility] Vancomycin level, trough (08/20/2018 9:21 AM CDT)Only the most recent of2 resultswithin the time period is included. Vancomycin Tr 16.5 10.0 - 20.0 ug/mL [facility] Specimen Blood Narrative Performed At Please draw 30 min prior to AM dose [facility] Performing Organization Address City/[facility] Centercom[facility] Phone Number [address] [address] [phone] CENTER B-type Natriuretic Factor (BNP) (08/20/2018 3:54 AM CDT)Only the most recent of2 resultswithin the time period is included. BNP 450 (H) 0 - 100 pg/mL [facility] Specimen Blood Performing Organization Address [facility] Phone Number [address] [address] CENTER aPTT (08/20/2018 12:35 AM CDT)Only the most recent of10 resultswithin the time period is included. PTT 84.7 (H) 22.5 - 36.0 seconds [facility] Specimen Blood Performing Organization Address City/State/Zipcode Phone Number [facility] [address] [place] [address] CENTER Electrolytes (08/19/2018 3:12 PM CDT)Only the most recent of3 resultswithin the time period is included. Sodium 138 136 - 145 meq/L [facility] Potassium 3.4 (L) 3.5 - 5.1 meq/L [facility] Chloride 105 98 - 107 meq/L [facility] CO2 24 22 - 29 meq/L [facility] Specimen Blood Narrative Performed At Call [phone] [facility] Performing Organization Address City/[facility] Cent[facility] Phone Number [facility] [address] [place] [address] [place] Respiratory Panel [facility] (08/19/2018 1:10 PM CDT) Human Metapneumovirus Not detected Not detected, [facility] Rhinovirus Not detected Not detected, [facility] Influenza A Not detected Not detected, [facility] INFLUENZA A (NO SUBTYPE) Not detected, [facility] Influenza A subtype H1 Not detected, [facility] Influenza A Subtype H3 Not detected, [facility] Influenza A Subtype H1-2009 Not detected, [facility] Influenza B Not detected Not detected, [facility] Respiratory Syncytial Virus Not detected Not detected, [facility] Parainfluenza Virus 1 Not detected Not detected, [facility] Parainfluenza Virus 2 Not detected Not detected, [facility] Parainfluenza virus 3 Not detected Not detected, [facility] Parainfluenza Virus 4 Not detected Not detected, [facility] Adenovirus Not detected Not detected, [facility] Coronavirus 229E Not detected Not detected, [facility] Coronavirus HKU1 Not detected Not detected, [facility] Coronavirus NL63 Not detected Not detected, [facility] Coronavirus OC43 Not detected Not detected, [facility] Bordetella Pertussis Not detected Not detected, [facility] Chlamydophila Pneumoniae Not detected Not detected, [facility] Mycoplasma Pneumoniae Not detected Not detected, [facility] Specimen Nasopharyngeal Narrative Performed At Other viruses and bacteria not targeted by [facility] this PCR panel cannot be excluded; therefore clinical correlation and follow up of serology, culture results, and other molecular studies is required. The results are not intended to be used as the sole means for clinical diagnosis or patient management decisions. This sample was tested at the [facility] using the Acustream FilmArray Respiratory Panel. It is FDA cleared and has been verified and approved by the [facility] for clinical use on nasal swab specimens. It is not FDA-cleared for use on bronchial wash/lavage samples. However, for this sample type, validation was performed and test characteristics were determined and approved, by [facility] for clinical use under the Clinical Laboratory Improvement Amendments (CLIA) of 1988 requirements. Therefore, FDA clearance is not required.This laboratory is CLIA-certified and [employer] (CAP)-accredited to perform high complexity testing. Performing Organization Address City/State/Zipcode Phone Number [facility] [address] [place] [address] CENTER Rapid Influenza A&B Screen (08/19/2018 1:10 PM CDT) Rapid Influenza A Antigen Negative Negative, Inconclusive [facility] Rapid influenza B Antigen Negative Negative, Inconclusive [facility] Specimen Nasal Performing Organization Address City/[facility]/Zipcode Phone Number [facility] [address] [place] [address] [place] Blood gas, arterial (08/18/2018 7:09 AM CDT)Only the most recent of5 resultswithin the time period is included. pH, Arterial 7.51 (H) 7.35 - 7.45 [facility] pCO2, Arterial 29 (L) 35 - 45 mmHg [facility] pO2, Arterial 173 (H) 80 - 90 mmHg [facility] O2 Sat, Arterial 99.3 (H) 96.0 - 97.0 % [facility] HCO3, Arterial 23 21 - 29 mmol/L [facility] Base Excess, Arterial 0.4 -2.0 - 3.0 mmol/L [facility] Patient Temperature 37.0 C [facility] FIO2 60.0 % [facility] Specimen Blood, Arterial Performing Organization Address City/[facility]/Zipcode Phone Number [facility] [address] [place] [address] [phone] [place] ECHOCARDIOGRAM REPORT - SCAN (08/17/2018 5:50 PM CDT) Narrative Performed At PT/aPTT (08/17/2018 1:13 PM CDT) Protime 14.0 11.7 - 14.7 seconds [facility] INR 1.1 <=5.9 [facility] PTT 45.0 (H) 22.5 - 36.0 seconds [facility] Specimen Blood Narrative Performed At [facility] RECOMMENDED COUMADIN/WARFARIN INR THERAPY RANGES STANDARD DOSE: 2.0 - 3.0 Includes: PROPHYLAXIS for venous thrombosis, systemic embolization; TREATMENT for venous thrombosis and/or pulmonary embolus. HIGH RISK: Target INR is 2.5-3.5 for patients with mechanical heart valves. Performing Organization Address City/State/Zipcode Phone Number [facility] [address] [place] [phone] [place] CBC (Hemogram only) (08/17/2018 4:45 AM CDT)Only the most recent of4 resultswithin the time period is included. WBC 13.1 (H) 3.5 - 10.5 K/L [facility] RBC 3.23 (L) 4.63 - 6.08 M/L [facility] Hemoglobin 10.3 (L) 13.7 - 17.5 GM/DL [facility] Hematocrit 31.8 (L) 40.1 - 51.0 % [facility] MCV 98.5 (H) 79.0 - 92.2 fL [facility] MCH 31.9 25.7 - 32.2 pg [facility] MCHC 32.4 32.3 - 36.5 GM/DL [facility] RDW 17.1 (H) 11.6 - 14.4 % [facility] Platelets 173 150 - 450 K/CU MM [facility] MPV 11.3 9.4 - 12.4 fL [facility] nRBC 0 0 - 0 /100 WBC [facility] Specimen Blood Performing Organization Address City/[facility]/Zipcode Phone Number [facility] [address] [place] [address] CENTER Creatine Kinase (CK) (08/17/2018 4:45 AM CDT) Total CK 1,084 (H) 29 - 200 U/L [facility] Specimen Blood Performing Organization Address City/[facility]/Zipcode Phone Number [facility] [address] [place] [address] CENTER US renal complete (08/16/2018 7:53 PM CDT) Specimen Narrative Performed At FINAL REPORT 7 Cups of Tea [facility] Renal ultrasound dated 08/16/2018 Comment:Real-time transabdominal renal ultrasound was performed. Right kidney measures 10.4 x 6.1 x 5.4 cm.Left kidney measures 10 21 x 6.2 x 4.3 cm.Right renal cortex measures 1.7 cm.Left renal cortex measures 1.6 cm. Echogenicity of both renal parenchyma is normal. No hydronephrosis, solid or cystic mass seen. Comparisons made with prior MRI dated July 29, 2018 from [facility]. A 2.2 cm mass is seen in [...] MD Report Verified Date/Time:08/16/2018 23:12:40 Reading Location: [address] Consult Reading Room Procedure Note Interface, [...] prior MRI dated July 29, 2018 from [facility]. A 2.2 cm mass is seen in [...] Report Verified Date/Time: 08/16/2018 23:12:40 Reading Location: [facility] C013W Consult Reading Room Performing Organization Address City/State/Zipcode Phone Number GE RIS ECG 12 lead (08/16/2018 5:57 PM CDT)Only the most recent of3 resultswithin the time period is included. Specimen Narrative Performed At Ventricular Rate 104 BPM GE MUSE Atrial Rate 104 BPM P-R Interval 186 ms QRS Duration 88 ms Q-T Interval 354 ms QTC Calculation(Bazett) 465 ms P Slayden 33 degrees R Slayden 18 degrees T Slayden 71 degrees Sinus tachycardia Otherwise normal ECG When compared with ECG of 15-AUG-2018 22:48, No significant change was found Confirmed by MD SMITH RUPA ([id number]) on 08/18/2018 3:53:01 PM Procedure Note Interface, External Ris In - 08/18/2018 3:53 PM CDT Ventricular Rate 104 BPM Atrial Rate 104 BPM P-R Interval 186 ms QRS Duration 88 ms Q-T Interval 354 ms QTC Calculation(Bazett) 465 ms P Slayden 33 degrees R Slayden 18 degrees T Slayden 71 degrees Sinus tachycardia Otherwise normal ECG When compared with ECG of 15-AUG-2018 22:48, No significant change was found Confirmed by MD SMITH RUPA ([id number]) on 08/18/2018 3:53:01 PM Performing Organization Address City/[facility] Phone Number GE MUSE 2D Echo W/Doppler(CW/PW/Color) (08/16/2018 4:36 PM CDT) Ejection Fraction [facility]ARTCouplewise [facility] Specimen Narrative Performed At Transthoracic Echocardiography Report (TTE) [facility]CHO HEARTAquafadasON [facility] Demographics Patient NameCLARICE MEJIA Date of Study08/16/2018 Male Visit [id number] Unknown Room [id number] Number Date of 1955Referring PhysicianRaul Renee Age 63 year(s)Husbandry Person Toyin Black [facility] Land Checker Jonitaina Stoll Interpreting Moira Restrepo MD Procedure [...] of Study 08/16/2018 Gender Male Visit Number [id number] Race Unknown Room Number 6A06 Number Date of 1955 Referring Physician Raul Renee Age 63 year(s) Husbandry Person Toyin Black [facility] Land Checker Jonitaina Stoll Interpreting Keiko Restrepo Physician Procedure [...] (08/16/2018 2:58 PM CDT) Color, UA Yellow [facility] Clarity, UA Hazy [facility] Specific [place], UA 1.014 1.001 - 1.035 [facility] pH, UA 5.5 5.0 - 8.0 [facility] Protein, UA 30 mg/dL (A) Negative [facility] Glucose, UA 50 mg/dL (A) Negative [facility] Ketones, UA Negative Negative [facility] Bilirubin, UA Negative Negative [facility] Blood, UA Moderate (A) Negative [facility] Nitrite, UA Negative Negative [facility] Leukocytes, UA Moderate (A) Negative [facility] Urobilinogen, UA 0.2 0.2 - 1.0 mg/dL [facility] RBC, UA <1 /HPF [facility] WBC, UA 19 /HPF [facility] Bacteria, UA Moderate [facility] Mucus Rare [facility] Hyaline Casts, UA 3 /LPF [facility] Specimen Source [facility] Specimen Urine Performing Organization Address City/[facility] Centercode Phone Number [address] [address] [place] Lactic acid, venous, whole blood (08/16/2018 2:58 PM CDT)Only the most recent of3 resultswithin the time period is included. Lactate, Venous 1.8Comment: Specimen 0.5 - 2.2 mmol/L [facility] slightly hemolyzed [facility] Specimen Blood Narrative Performed At [facility] Effective 03/22/2016: Units/Reference Range Change New: 0.5-2.2 mmol/LPrevious: 5-20 mg/dL Performing Organization Address City/[facility] Cent[facility]ode Phone Number [address] [address] [phone] [place] Sodium, random urine (08/16/2018 2:58 PM CDT) Sodium Urine 25 meq/L [facility] Specimen Urine Narrative Performed At [facility] Reference Range: No Normals Performing Organization Address City/[facility]/Zipcode Phone Number [address] [address] [phone] [place] Protein, random urine (08/16/2018 2:58 PM CDT) Protein, Urine 39 (H) 0 - 14 mg/dL [facility] Specimen Urine Performing Organization Address [facility] Cent[facility] Phone Number [address] [address] [place] Creatinine, random urine (08/16/2018 2:58 PM CDT) Creatinine, Ur 137.8 mg/dL [facility] Specimen Urine Narrative Performed At [facility] Reference Range: No Normals Performing Organization Address [facility] Cent[facility] Phone Number [address] [address] [phone] [place] Urine culture (08/16/2018 2:58 PM CDT) Result No growth [facility] Specimen Urine Performing Organization Address [facility] Cent[facility] Phone Number [address] [address] [place] NM lung scan (V/Q) (08/16/2018 12:39 PM CDT) Specimen Narrative Performed At FINAL REPORT [facility] PROCEDURE: V/Q LUNG SCAN CPT CODE: [id number] INDICATION: Acute chest pain PROTOCOL: 10.0 mCi [...] MD Report Verified Date/Time:08/16/2018 13:16:03 Reading Location: [address] [employer] Reading Room Procedure Note Interface, External Ris In - 08/16/2018 1:18 PM CDT FINAL REPORT PROCEDURE: V/Q LUNG SCAN CPT CODE: 15124 INDICATION: Acute chest pain PROTOCOL: 10.0 mCi [...] Report Verified Date/Time: 08/16/2018 13:16:03 Reading Location: [address] [employer] [facility] Reading Room Performing Organization Address City/State/Zipcode Phone Number [facility] Venous doppler legs bilateral (08/16/2018 8:55 AM CDT) Ejection Fraction [facility] ECHO HEARTLAB MKCKESSON CPACS Specimen Impressions Performed At Right Impression [facility] ECHO HEART[facility] MKCK[facility]ON CPACS 1. There is [...] PV LAB - Lower Extremities DVT Study [facility] HEART[facility] Demographics Patient NameCLARICE MEJIA Date of Study 08/16/2018 63 Visit [id number] Male of 1955 Number Referring Raul Brown Number [id number] Physician Husbandry Person Kendall Sales. InterpretingJ. Anthony Quezada RVT, Joselito [...] of Study 08/16/2018 Age 63 Visit Number [id number] Gender Male Date of 1955 Number Referring [facility] Room Number [id number] Physician Husbandry Person Kendall Sales. Interpreting Delano Quezada, TYLERT, ARS [...] are measured in cm Performing Organization Address City/State/[facility] Phone Number [facility] Blood gas, venous (08/16/2018 3:09 AM CDT) pH, Paul 7.48 (H) 7.32 - 7.42 [facility] pCO2, Paul 45 41 - 51 mmHg [facility] pO2, Paul 76 (H) 25 - 40 mmHg [facility] O2 Sat, Paul 96.0 (H) 40.0 - 70.0 % [facility] HCO3, Paul 33 (H) 21 - 29 mmol/L [facility] Base Excess, Paul 8.3 (H) -2.0 - 3.0 mmol/L [facility] Patient Temperature 37.0 C [facility] FIO2 40.0 % [facility] Specimen Blood Performing Organization Address City/State/Zipcode Phone Number [facility] [address] [place] [address] [phone] CENTER XR abdomen / KUB 1 view [...] MD Report Verified Date/Time:08/16/2018 02:06:47 Reading Location: [facility] C013Y CT Body Reading Room Procedure [...] Report Verified Date/Time: 08/16/2018 02:06:47 Reading Location: [facility] B1 C013Y CT Body Reading Room Performing Organization Address City/[facility] Phone Number GE RIS Blood culture (08/15/2018 10:46 PM CDT)Only the most recent of2 resultswithin the time period is included. Result No growth in 5 days [facility] Specimen Blood Performing Organization Address [facility] Cent[facility] Phone Number [address] [address] [phone] [place] POCT-HEMATOCRIT (08/15/2018 10:40 PM CDT)Only the most recent of2 resultswithin the time period is included. POC-Hematocrit 29 (L)Comment: TESTED AT 40 - 50 % [address] [address] Specimen Blood Performing Organization Address [facility] Phone Number [address] [address] [phone] [place] POCT-HEMOGLOBIN (08/15/2018 10:40 PM CDT)Only the most recent of2 resultswithin the time period is included. POC-Hemoglobin 9.9 (L)Comment: TESTED AT 13.0 - 16.8 g/dL [address] [address] AT [address] [address] Specimen Blood Performing Organization Address [facility] Phone Number [address] [address] [place] POCT-GLUCOSE (08/15/2018 10:40 PM CDT)Only the most recent of2 resultswithin the time period is included. POC-Glucose 257 (H)Comment: TESTED AT 70 - 110 mg/dL [address] [address] Specimen Blood Performing Organization Address [facility] Phone Number [address] [address] [place] POC-Sodium (08/15/2018 10:40 PM CDT)Only the most recent of2 resultswithin the time period is included. POC-Sodium 133 (L)Comment: TESTED AT 135 - 148 meq/L [address] [address] Specimen Blood Performing Organization Address [facility] Phone Number [address] [address] [place] POC-Potassium (08/15/2018 10:40 PM CDT)Only the most recent of2 resultswithin the time period is included. POC-Potassium 3.8Comment: TESTED AT [facility] 3.6 - 5.5 meq/L [address] [address] Specimen Blood Performing Organization Address [facility] Phone Number [address] [address] [phone] [place] POC-Calcium ionized (08/15/2018 10:40 PM CDT)Only the most recent of2 resultswithin the time period is included. POC-Calcium Ionized 1.05 (L)Comment: 1.12 - 1.27 mmol/L [facility] TESTED AT [address] [address] Specimen Blood Performing Organization Address [facility] Phone Number [address] [address] [place] POC-Blood gases, arterial (08/15/2018 10:40 PM CDT)Only the most recent of2 resultswithin the time period is included. Temp. Celsius-POC 38.3 [facility] FIO2-POC Comment: TESTED AT [address] [address] pH, Arterial-POC 7.423 7.350 - 7.450 [facility] PCO2, Arterial-POC 30.6 (L) 35.0 - 45.0 mm Hg [facility] PO2, Arterial-POC 69.0 (L) 80.0 - 90.0 mm Hg [facility] SO2, Arterial-POC 93.0 (L) 96.0 - 97.0 % [facility] HCO3, Arterilal-POC 19.8 (L) 21.0 - 29.0 meq/L [facility] BE, Arterial-POC -4.0 (L) -2.0 - 3.0 meq/L [facility] Specimen Blood Performing Organization Address [facility] Phone Number [address] [address] CENTER POC-Lactic Acid, Arterial (08/15/2018 10:35 PM CDT) POC-Lactic Acid, 1.6 (H)Comment: 0.4 - 1.3 mmol/L [facility] Arterial TESTED AT [address] [address] Specimen Blood Performing Organization Address [facility] Phone Number [address] [address] CENTER Potassium-Stat Lab (08/14/2018 1:11 PM CDT)Only the most recent of3 resultswithin the time period is included. Potassium 4.1 3.6 - 5.5 meq/L [facility] Specimen Blood, Arterial Performing Organization Address City/[facility] Phone Number [address] [address] CENTER Sodium Na-Stat Lab (08/14/2018 1:11 PM CDT)Only the most recent of3 resultswithin the time period is included. Sodium 139 135 - 148 meq/L [facility] Specimen Blood, Arterial Performing Organization Address City/[facility]/Zipcode Phone Number [facility] [address], [place] [phone] CENTER Glucose-Stat Lab (08/14/2018 1:11 PM CDT)Only the most recent of3 resultswithin the time period is included. Glucose 210 (H) 70 - 110 mg/dL [facility] Specimen Blood, Arterial Performing Organization Address City/[facility] Phone Number [facility] [address] [place] [address] [place] HGB/HCT (H&H)-Stat Lab (08/14/2018 1:11 PM CDT)Only the most recent of3 resultswithin the time period is included. Hemoglobin 11.0 (L) 13.0 - 16.8 g/dL [facility] Hematocrit 32.0 (L) 40.0 - 50.0 % [facility] Specimen Blood, Arterial Performing Organization Address [facility] Phone Number [facility] [address] [place] [address] [place] Tissue Exam (08/14/2018 9:24 AM CDT) Case Report Surgical Pathology Report Case: [id number] [facility] Authorizing Provider:Víctor Sam MDCollected: 08/14/2018 0924 [facility] MEDICAL Ordering Location: [facility] PERIOPERATIVE Received: 08/14/2018 1156 CENTER SERVICES Pathologist: Maricruz Olivier MD Specimens: A) - Gallbladder B) - Liver, LIVER SEGMENT 6 - FROZEN ON INKED EDGE WITH STITCH C) - Liver, LIVER - ADDITIONAL SPECIMEN - FROZEN ON THE SURFACE WITH WHITE STITCH D) - Liver, LIVER SEGMENT 4B ADDENDUM 2 The addendum is being issued to report the results of immunohistochemistry (IHC) testing for Mismatch Repair (MMR) Proteins, which has been performed at the request of the oncologist. [facility] IHC testing for all four MMR proteins was performed on selected block B5 with appropriate controls. CENTER RESULTS MLH1: Intact nuclear expression MSH2: Intact nuclear expression MSH6: Intact nuclear expression PMS2: Intact nuclear expression IHC Interpretation No loss of nuclear expression of MMR proteins: MMR proficient Additional CPT codes: 31227 x 4 ADDENDUM A PD-L1 study result from [facility] is available on 2018, performed on designated liver tissue, as requested by Dr. David Srinivasan and received by Dr. Tex Quezada pm 05/26/2019.. [facility] The study is NEGATIVE; CENTER see entire scanned report from 05/26/2019, and FAXed data from 05/31/2019.. DIAGNOSIS A. GALLBLADDER, CHOLECYSTECTOMY: [facility] - CHRONIC CHOLECYSTITIS, CHOLESTEROLOSIS [facility] B. LIVER, SEGMENT 5/6, HEPATIC SEGMENTECTOMY: - [...] FOR MALIGNANCY Signing Pathologist Direct Phone Line: [phone] COMMENT Immunohistochemical stains were performed on block B5, with the following results: [facility] - CK 7, CK 19, MOC-31, CAM 5.2: positive on tumor cells, negative on non- neoplastic liver parenchyma [facility] - CEA: weak and patchy positivity on tumor cells, negative in non-neoplastic liver parenchyma [place] - Arginase, Hepatocyte Specific: negative in tumor, positive in non- neoplastic liver parenchyma - CK 20, Glypican-3: negative. This findings support the diagnosis of cholangiocarcinoma. SYNOPTIC REPORT INTRAHEPATIC BILE DUCTS(Bile Duct IH - All Specimens) [facility] SPECIMEN Procedure:Partial hepatectomy TUMOR Histologic Type:Intrahepatic cholangiocarcinoma [...] ADDITIONAL FINDINGS Additional Pathologic Findings:Steatosis CPT Code(s) 26545 x 3, 74390, 95328 x 2, [facility] 84267 x 3; 71835 x 1; 48971 x9 [facility] CLINICAL HISTORY Cholangiocarcinoma, treated [facility] with chemotherapy. [facility] SPECIMEN SOURCE A. Gallbladder. B. Liver [facility] segment 6. C. Liver additional [facility] specimen. D. Liver segment 4B CENTER GROSS DESCRIPTION A. Received in formalin labeled "gallbladder" is a cholecystectomy product measuring 6.5 x 2.5 x 1.5 cm. The specimen is received open with disruption along the hepatic surface. The specimen is opened t [facility] o reveal a velvety mucosa. No stones or masses are identified in the lumen. The wall thickness is 0.2 cm in average. No masses or infiltrations are identified. Project Safety Manager sections are submitted as f [facility] ollows: A1, cystic duct margin; A2, service representative sections neck to body, body to fundus; A3, service representative sections of body of the gallbladder [...] the liver parenchyma appears black-brown and dusky. Project Safety Manager sections are submitted as follows. Section code: [...] and smaller nodules; B13 and B14 , service representative sections of additional grossly uninvolved liver [...] yellow liver parenchyma with no masses identified. Project Safety Manager sections are submitted as follows: cassette FSC1 to FSC3, new margin; C4 and C5, service representative sections of possible previous resection margin; [...] five cassettes. DH/pl INTRAOPERATIVE FROZEN SECTION DIAGNOSIS: [facility] CONS[facility] B. FSB1, LIVER, SEGMENT 6, PARTIAL HEPATECTOMY: [facility] MEDICAL - POSITIVE FOR MALIGNANCY CONSISTENT WITH CHOLANGIOCARCINOMA CENTER Reported by Dr. Olivier at 12:33 p.m. C. FSC1, LIVER, ADDITIONAL PARENCHYMA FOR FROZEN, PARTIAL HEPATECTOMY: - NEGATIVE FOR MALIGNANCY Reported by Dr. Olivier at 1:33 p.m. MICROSCOPIC DESCRIPTION A-D. Performed. [facility] SPECIAL STUDIES The following special studies were performed on this case and the interpretation is incorporated in the diagnostic report above: [facility] Immunohistochemical stains performed on block B5: [facility], CAM5.2, CDX2, CEA, CK7, CK19, CK20, Glypican-3, Hep-Par 1 and MOC- 31. CENTER The immunohistochemistry test was developed and its performance characteristics determined by [facility] Pathology Laboratory. It has not been cleared [...] At Performing Organization Address City/State/Zipcode Phone Number [facility] [address] [place] [address] CENTER ANESTHESIA SPINAL BLOCK (08/14/2018 8:36 AM [...] sitting Prep: Betadine Patient monitoring: heart rate, emergency care attendant and continuous pulse ox Location: L3-4 Injection [...] sitting Prep: Betadine Patient monitoring: heart rate, emergency care attendant and continuous pulse ox Location: L3-4 Injection technique: single-shot Needle Needle type: pencil-tip Needle gauge: 25 G Needle length: 10 cm Assessment Sensory level: T10 Events: cerebrospinal fluid Additional Notes Pt tolerated the procedure well. TRANSFUSION SERVICE REPORT - SCAN (07/31/2018 5:54 PM CDT) Narrative Performed At Type and screen, automated (07/30/2018 10:59 AM CDT) ABO/RH AUTOMATED (BEAKER) AB POSITIVE [facility] Ab Scrn NEGATIVE [facility] Specimen Blood Performing Organization Address [facility] Cent[facility]ode Phone Number [address] [address] BUN and Creatinine (07/30/2018 10:59 AM CDT) BUN 17 7 - 21 mg/dL [facility] Creatinine 1.31 (H)Comment: Specimen 0.57 - 1.25 mg/dL [facility] slightly hemolyzed [facility] EGFR 55Comment: ESTIMATED GFR IS mL/min/1.73 sq m [facility] NOT ACCURATE CREATININE [facility] CENTER CLEARANCE IN PREDICTING GLOMERULAR FILTRATION RATE. ESTIMATED GFR IS NOT APPLICABLE FOR DIALYSIS PATIENTS. Specimen Blood Performing Organization Address City/[facility] Phone Number [address] [place], [place] [phone] CENTER Platelet count (07/30/2018 10:59 AM CDT) Platelets 208 150 - 450 K/CU MM [facility] Specimen Blood Performing Organization Address City/[facility] Cent[facility] Phone Number [address] [address] [phone] CENTER Hemoglobin (07/30/2018 10:59 AM CDT) Hemoglobin 14.3 13.7 - 17.5 GM/DL [facility] Specimen Blood Performing Organization Address City/[facility] Phone Number [address] [address] CENTER Glucose (07/30/2018 10:59 AM CDT) Glucose 151 (H) 70 - 105 mg/dL [facility] Specimen Blood Performing Organization Address City/[facility] Cent[facility]ode Phone Number [address] [phone] CENTER after 07/20/2018 Insurance Payer Benefit Plan / Subscriber ID Type Phone Address Group [employer]UE [employer] xxxxxxxxxxxx PPO [phone] [address] [employer]/[place] [address] (Home) [place] [address] Advance Directives For more information, please contact:[address] [phone] Code Status Date Activated Date Inactivated Comments Full Code 08/14/2018 7:13 AM 08/23/2018 5:59 PM This code status was determined by: Patient
--- OUTSIDE RECORDS SUMMARY | 2019-07-21 20:53 | XMS REPORT | Summary of Care ---
:1955 Author Organization [facility] Address [address] [place] [address] Care Team Providers Name Role Phone Unavailable Primary Care Provider Unavailable Reason for Referral (Routine) Status Reason Specialty Diagnoses / Procedures Referred By Referred To Contact Contact Closed Service Not Oncology Diagnoses Recurrent bile duct cholangiocarcinoma Issa Gregory Md Provided by Procedures CONSULT/REFERRAL MEDICAL ONCOLOGY Aurelio Sales [address] [phone] Reason for Visit Reason Comments Diabetes Mellitus II Follow-up Encounter Details Date Type Department Care Team Description 05/26/2019 Office Visit [facility] Aurelio Gregory Type 2 diabetes mellitus without complication, without long-term current use of insulin ( Primary Dx); Endocrinology- H Hyperlipidemia, unspecified hyperlipidemia type; [address] Essential hypertension; Professional Office Recurrent bile duct cholangiocarcinoma [facility] [address] [place] [address] [facility] 208 [address] [place], [place] [phone] Allergies No Known Allergiesdocumented as of this encounter (statuses as of 06/23/2019) Medications Medication Sig Dispensed Refills Start Date End Date Status allopurinol Take two tablets by 0 09/21/2015 Active (ZYLOPRIM) 100 mg mouth daily tablet atorvastatin Take 40 mg by mouth. 0 04/15/2015 Active (LIPITOR) 40 mg tablet cetirizine-psuedoeph TAKE 1 TABLET TWICE 0 01/04/2016 Active edrine (ZYRTEC-D) DAILY 5-120 mg per tablet olmesartan (BENICAR) Take 40 mg by mouth. 0 04/15/2015 Active 40 mg tablet LOVAZA, [id number] TAKE 2 CAPSULES BY 0 04/18/2016 Active ethyl esters, 1 gram MOUTH 2 TIMES DAILY capsule Cholecalciferol, Take 1 tablet by 0 Active Vitamin D3, 5,000 mouth. unit tablet VICTOZA 2-CATHERINE 0.6 INJECT 0.6 MG 5 12/28/2016 Active mg/0.1 mL (18 mg/3 SUBCUTANEOUSLY ONCE mL) injection A DAY desoximetasone 0.25 APPLY TWICE DAILY TO 3 05/18/2017 Active % cream ECZEMA. tamsulosin 0.4 mg 24 TAKE ONE CAPSULE BY 1 05/11/2017 Active hr capsule MOUTH EVERY NIGHT torsemide 5 mg TAKE 1 TABLET BY 3 05/01/2017 Active tablet MOUTH EVERY DAY NEEDED FOR SWELLING IN LEGS lancets 33 gauge Use as directed, 300 Each 3 02/06/2018 Active Misc TID, DX:E11.9 blood sugar USE TO CHECK GLUCOSE 400 Strip 3 09/03/2018 Active diagnostic (ONETOUCH FOUR TIMES DAILY ULTRA BLUE TEST STRIP) strip Insulin [place], Use as directed, 300 Each 3 09/09/2018 Active Disposable, (BD TID, DX;E11.9 INSULIN PEN NEEDLE UF) 31 gauge x 5/16" Ndle Insulin Glargine inject 62 Units 60 mL 1 03/19/2019 Active (LANTUS SOLOSTAR under the skin U-100 INSULIN) 100 daily. unit/mL (3 mL) injection metformin ER 500 mg Take 1 tablet by 180 tablet 1 04/01/2019 Active 24 hr mouth 2 (two) times tabletIndications: daily. Type 2 diabetes mellitus without complication insulin aspart U-100 inject 24 Units 65 mL 1 05/05/2019 Active (NOVOLOG FLEXPEN under the skin 3 U-100 INSULIN) 100 (three) times daily unit/mL injection before meals. documented as of this encounter (statuses as of 06/23/2019) Active Problems Problem Noted Date Type 2 diabetes mellitus without complication 03/08/2016 Essential hypertension 03/08/2016 Hyperlipidemia 03/08/2016 Idiopathic chronic gout of multiple sites without tophus 03/08/2016 documented as of this encounter (statuses as of 06/23/2019) Social History Tobacco Use Types Packs/Day Years Used Date Never Smoker Alcohol Use Drinks/Week oz/Week Comments No 0 Standard drinks or equivalent 0.0 Sex Assigned at Date Recorded Not on file Job Start Date Occupation Industry Not on file Not on file Not on file Travel History Travel Start Travel End No recent travel history available. documented as of this encounter Last Filed Vital Signs Vital Sign Reading Time Taken Comments Blood Pressure 91/61 05/26/2019 9:38 AM CDT Pulse 96 05/26/2019 9:38 AM CDT Temperature - - Respiratory Rate 18 05/26/2019 9:38 AM CDT Oxygen Saturation - - Inhaled Oxygen Concentration - - Weight 92.5 kg (204 lb) 05/26/2019 9:38 AM CDT Height 177.8 cm (5' 10") 05/26/2019 9:38 AM CDT Body Mass Index 29.27 05/26/2019 9:38 AM CDT documented in this encounter Patient Instructions Patient InstructionsAurelio Gregory - 05/26/2019 9:00 AM CDTYour hemoglobin a1c is at 6.6% today. Continue metformin 500 mg twice daily. Reduce your Lantus to 55 units daily. Reduce NovoLog to 20 units three times daily. Continue Victoza 1.2 mg daily. Continue to keep up your increased pace of walking. Try some Glucerna supplements to help your nutrition. I have sent in a referral to [facility] to see if they can give you a second opinion. Please have your oncologist send me the results of a blood count, comprehensive metabolic panel, gunner lipid panel. documented in this encounter Progress Notes Aurelio Gregory - 05/26/2019 9:00 AM CDT Chief Complaint Patient presents with Diabetes Mellitus II Follow-up HPI: Mr. Oconnor is a 64 yo male with pmh of t2dm, ckd3, htn for f/u t2dm. He is s /p resection for a cholangiocarcinoma. 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 He is down to 204 pounds. He is on Lantus 62 units daily NovoLog 24 units thrice daily and Victoza 1.2 mg daily. He is aslo on metformin 500 mg three times daily. Patient reports compliance with medication. BGs brought in are in the low to mid 100s; however, he has had some 50s occasionally. He is variable with his eating habits; he worries about eating enough.He hasn't been walking, and reports some fatigue. Hb A1c today is 6.6% PMHx: Past Medical History: Diagnosis Date Cholangiocarcinoma CKD (chronic kidney disease) stage 3, GFR 30-59 ml/min HTN (hypertension) T2DM (type 2 diabetes mellitus) PE: Vitals: Blood pressure 91/61, pulse 96, resp. rate 18, height 5' 10" (1.778 m) , weight 204 lb (92.5kg). General: alert and oriented x 4 (person, place, date/time and situation); no apparent distress HEENT: normocephalic atraumatic Neck: supple, no lymphadenopathy, no bruits, no JVD Lungs: clear to auscultation bilaterally Cardio: regular rate and rhythm Extremities: no clubbing, cyanosis, or edema Neuro: sensation 3/5 bilaterally to monofilament testing Recent Labs 05/26/19 0947 [id number] 6.6* ICD-10-CM ICD-9-CM 1. Type 2 diabetes mellitus without complication, without long-term current use of insulin E11.9 250.00 Controlled. Reduce Lantus to 55 units daily Reduce NovoLog to 20 units thrice daily Continue Victoza 1.2 mg daily Continue physical activity Use Glucerna for nutrition support. Asked for him to get oncology labs to us. Sent referral to [facility] to help expedite second opinion. Orders Placed This Encounter Procedures POCT HEMOGLOBIN A1C TEST Madelyn Alas RN - 05/26/2019 9:00 AM CDT Seth Oconnor is a 64 year old male seen for a follow up visit for diabetes; Patient Active Problem List Diagnosis Type 2 diabetes mellitus without complication Essential hypertension Hyperlipidemia Idiopathic chronic gout of multiple sites without tophus Current Outpatient Medications on File Prior to Visit Medication Sig Dispense Refill insulin aspart U-100 (NOVOLOG FLEXPEN U-100 INSULIN) 100 unit/mL injection inject 24 Units underthe skin 3 (three) times daily before meals. 65 mL 1 metformin ER 500 mg 24 hr tablet Take 1 tablet by mouth 2 (two) times daily. 180 tablet 1 Insulin Glargine (LANTUS SOLOSTAR U-100 INSULIN) 100 unit/mL (3 mL) injection inject 62 Units under the skin daily. 60 mL 1 Insulin [place], Disposable, (BD INSULIN PEN NEEDLE UF) 31 gauge x 5/16" Ndle Use as directed, TID, DX;E11.9 300 Each 3 blood sugar diagnostic (ONETOUCH ULTRA BLUE TEST STRIP) strip USE TO CHECK GLUCOSE FOUR TIMES DAILY 400 Strip 3 lancets 33 gauge Misc Use as directed, TID, DX:E11.9 300 Each 3 desoximetasone 0.25 % cream APPLY TWICE DAILY TO ECZEMA. 3 tamsulosin 0.4 mg 24 hr capsule TAKE ONE CAPSULE BY MOUTH EVERY NIGHT 1 torsemide 5 mg tablet TAKE 1 TABLET BY MOUTH EVERY DAY NEEDED FOR SWELLING IN LEGS 3 Cholecalciferol, Vitamin D3, 5,000 unit tablet Take 1 tablet by mouth. LOVAZA, [id number] ethyl esters, 1 gram capsule TAKE 2 CAPSULES BY MOUTH 2 TIMES DAILY VICTOZA 2-CATHERINE 0.6 mg/0.1 mL (18 mg/3 mL) injection INJECT 0.6 MG SUBCUTANEOUSLY ONCE A DAY 5 allopurinol (ZYLOPRIM) 100 mg tablet Take two tablets by mouth daily atorvastatin (LIPITOR) 40 mg tablet Take 40 mg by mouth. cetirizine-psuedoephedrine (ZYRTEC-D) 5-120 mg per tablet TAKE 1 TABLET TWICE DAILY olmesartan (BENICAR) 40 mg tablet Take 40 mg by mouth. No current facility-administered medications on file prior to visit. Level of pain is zero Location of pain n/a Appearance: healthy,alert,cooperative. This patient is accompanied in the office by his self. Medications and allergies reviewed with patient by HENOK Vaz. Patient will demonstrate three measures of preventative foot care: avoid going shoeless, daily cleaning and check, proper care of toe nails and proper foot wear. Met [facility] finger stick on right index finger for A1C, cleaned site with alcohol, let air dry, stick X1, tolerated well, no redness, swelling, or rash noted at this time, no complaints voiced, results given to Dr. Gregory and updated in [email or web address]. documented in this encounter Plan of Treatment Date Type Specialty Care Team Description 10/03/2019 Office Visit Endocrinology Diabetes & Aurelio Gregory Metabolism [address] [place] [address] [place] [address] [phone] Health Maintenance Due Date Last Done Comments HEPATITIS C (HCV) SCREEN 1955 PNEUMOCOCCAL 0-64 YEARS COMBINED 1961 SERIES (1 of 3 - PCV13) CREATININE (SERUM) 1965 EYE EXAM 1965 LDL-C 1965 URINE MICROALBUMIN 1965 DTaP,Tdap,and Td Vaccines (1 - Tdap) 1974 COLONOSCOPY 2005 Zoster Recombinant Vaccine (SHINGRIX) 2005 (1 of 2) FOOT EXAM 11/30/2018 11/30/2017, 11/30/2017 INFLUENZA VACCINE 07/20/2019 HgA1C 11/26/2019 05/26/2019, 11/22/2018, 05/25/2017 (Previously completed) documented as of this encounter Procedures Procedure Name Priority Date/Time Associated Comments Diagnosis POCT HEMOGLOBIN A1C Routine 05/26/2019 9:47 AM Type 2 diabetes Results for this TEST CDT mellitus without procedure are in complication, the results without long-term section. current use of insulin documented in this encounter Results POCT HEMOGLOBIN A1C TEST (05/26/2019 9:47 AM CDT) POCT HBA1C 6.6 (A) 4 - 6 % Specimen Blood - CAPILLARY documented in this encounter Visit Diagnoses Diagnosis Type 2 diabetes mellitus without complication, without long-term current use of insulin - Primary Hyperlipidemia, unspecified hyperlipidemia type Essential hypertension Unspecified essential hypertension Recurrent bile duct cholangiocarcinoma Malignant neoplasm of biliary tract, part unspecified site documented in this encounter Insurance Payer Benefit Plan Subscriber ID Effective Dates Phone Address Type / Group [id number] [address] [phone] [address] PPO/POS [place] - OUT OF t 7 [id number] [place] [address] documented as of this encounter
--- OUTSIDE RECORDS SUMMARY | 2019-07-21 20:53 | XMS REPORT | Summary of Care ---
:1955 Author Organization [facility] Address [address] [place] [address] Care Team Providers Name Role Phone Unavailable Primary Care Provider Unavailable Reason for Referral (Routine) Status Reason Specialty Diagnoses / Procedures Referred By Referred To Contact Contact Closed Service Not Oncology Diagnoses Recurrent bile duct cholangiocarcinoma Issa Gregory Md Provided by Procedures CONSULT/REFERRAL MEDICAL ONCOLOGY Aurelio Sales [address] [phone] Reason for Visit Reason Comments Diabetes Mellitus II Follow-up Encounter Details Date Type Department Care Team Description 05/26/2019 Office Visit [facility] Aurelio Gregory Type 2 diabetes mellitus without complication, without long-term current use of insulin ( Primary Dx); Endocrinology- H Hyperlipidemia, unspecified hyperlipidemia type; [address] Essential hypertension; Professional Office Recurrent bile duct cholangiocarcinoma [facility] [address] [place] [address] [facility] 208 [address] [place], [place] [phone] Allergies No Known Allergiesdocumented as of this [...] 0 04/15/2015 Active 40 mg tablet LOVAZA, [id number] TAKE 2 CAPSULES BY 0 04/18/2016 Active [...] DAILY ULTRA BLUE TEST STRIP) strip Insulin [place], Use as directed, 300 Each 3 09/09/2018 [...] to monofilament testing Recent Labs 05/26/19 0947 [id number] 6.6* ICD-10-CM ICD-9-CM 1. Type 2 diabetes mellitus without complication, without long-term current use of insulin E11.9 250.00 Controlled. Reduce Lantus to 55 units daily Reduce NovoLog to 20 units thrice daily Continue Victoza 1.2 mg daily Continue physical activity Use Glucerna for nutrition support. Asked for him to get oncology labs to us. Sent referral to [facility] to help expedite second opinion. Orders Placed [...] the skin daily. 60 mL 1 Insulin [place], Disposable, (BD INSULIN PEN NEEDLE UF) 31 [...] tablet Take 1 tablet by mouth. LOVAZA, wdlvx-[id number] ethyl esters, 1 gram capsule TAKE 2 [...] toe nails and proper foot wear. Met [facility] finger stick on right index finger for A1C, cleaned site with alcohol, let air dry, stick X1, tolerated well, no redness, swelling, or rash noted at this time, no complaints voiced, results given to Dr. Gregory and updated in [employer]. documented in this encounter Plan of Treatment Date Type Specialty Care Team Description 10/03/2019 Office Visit Endocrinology Diabetes & Aurelio Gregory Metabolism [address] [place] [address] [place] [address] [phone] Health Maintenance Due Date Last Done Comments [...] Effective Dates Phone Address Type / Group [id number] 2013[address] [phone] [address] PPO/POS [place] - OUT OF t 7 [id number] [place] [address] documented as of this encounter
[2019-07-21] MEDS ORDERED: NA CHLORIDE 0.9% 2,000 ML ONE (22:30)
[2019-07-21 22:36] LABS: Protime INR 0.94
[2019-07-21 22:37] LABS: Absolute Lymphocytes (CBC) 0.9 K/uL (0.7-4.9); Basophils % 0.2 % (0-1.3); Hematocrit 32.9 % (39.6-49.0); MPV 8.2 fL (7.6-11.3); RBC Red Blood Cell Count 4.05 M/uL (4.33-5.43)
[2019-07-21 22:53] LABS: Urine Blood 1+ (NEG); Urine Glucose NEGATIVE (NEG); Urine Protein 1+ (NEG)
[2019-07-21 22:59] LABS: Urine Bacteria LOADED /HPF (NONE SEEN); Urine Culture Reflex Order REFLEXED; Urine RBC <5 /HPF (NONE SEEN)
[2019-07-21 23:00] LABS: ALT/SGPT 33 U/L (12-78); AST/SGOT 24 U/L (15-37); Albumin 2.5 g/dL (3.4-5.0); Alkaline Phosphatase 175 U/L (45-117); BUN Blood Urea Nitrogen 32 mg/dL (7-18); Bicarbonate 26 mmol/L (21-32); Bilirubin Direct 0.2 mg/dL (0-0.2); Bilirubin Total 0.6 mg/dL (0.2-1.0); CKMB Creatine Kinase MB 1.1 ng/mL (0.3-3.6); Creatine Phosphokinase 37 U/L (39-308); Glucose Level 100 mg/dL (74-106); Lipase 312 U/L (73-393); Potassium 3.5 mmol/L (3.5-5.1); Protein, Total 5.7 g/dL (6.4-8.2); Sodium Level 141 mmol/L (136-145); Troponin (Emerg Dept Use Only) < 0.02 ng/mL (0.0-0.045)
[2019-07-21 23:02] LABS: Anisocytosis 1+; Blood Morphology Comment NOTED (NOT SEEN); Platelet Estimate INCR; Urine White Blood Cell Casts OK
--- NOTE | 2019-07-21 23:39 | ER ---
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 Bp was in the 80s at home. Transition of care: patient was not received from another setting of care. Onset of symptoms was July 21, 2019. Risk Assessment: Do you want to hurt yourself or someone else? Patient reports no desire to harm self or others. Initial Sepsis Screen: Does the patient meet any 2 criteria? Systolic BP < 90 mmHg. HR > 90 bpm. Yes Does the patient have a suspected source of infection? Yes: Productive cough/pneumonia If YES to both, name of provider notified: Antonio Rosario MD. Care prior to arrival: None. 21:22 Method Of Arrival: Wheelchair la1 21:22 Acuity: LONNY 2 la1 Historical: - Allergies: 21:22 No Known Allergies; la1 - PMHx: 21:22 Cancer; Bile duct carcinoma; Diabetes - IDDM; Hypertension; la1 - Immunization history:: Adult Immunizations up to date. - Social history:: Smoking status: Patient/guardian denies using tobacco. - Ebola Screening: : No symptoms or risks identified at this time. Screenin:20 Abuse screen: Denies threats or abuse. Nutritional screening: No deficits noted. jb4 Tuberculosis screening: No symptoms or risk factors identified. Fall Risk None identified. Assessment: 21:20 General: Appears in no apparent distress. comfortable, Behavior is calm, cooperative, jb4 appropriate for age. Pain: Denies pain. Neuro: Level of Consciousness is awake, alert, obeys commands, Oriented to person, place, time, situation. Cardiovascular: Patient's skin is warm and dry. Respiratory: Airway is patent Respiratory effort is even, unlabored, Respiratory pattern is regular, symmetrical. GI: No deficits noted. No signs and/or symptoms were reported involving the gastrointestinal system. : No deficits noted. No signs and/or symptoms were reported regarding the genitourinary system. EENT: No deficits noted. No signs and/or symptoms were reported regarding the EENT system. Derm: Skin is intact, Skin is pink, warm \T\ dry. Musculoskeletal: Circulation, motion, and sensation intact. Range of motion: intact in all extremities. 22:30 Reassessment: Patient appears in no apparent distress at this time. Patient and/or jb4 family updated on plan of care and expected duration. Pain level reassessed. Patient is alert, oriented x 3, equal unlabored respirations, skin warm/dry/pink. 23:06 Reassessment: financial services technician Romelia called for critical lab result of Lactic Acid cc3 4.8 JULIA Gill informed. 23:31 Reassessment: JULIA Gill said the patient's getting admitted. Patient's Love left cc3 her mobile number [phone]. 07/22 00:09 Reassessment: Patient appears in no apparent distress at this time. Patient and/or jb4 family updated on plan of care and expected duration. Pain level reassessed. Patient is alert, oriented x 3, equal unlabored respirations, skin warm/dry/pink. 00:42 Reassessment: Patient appears in no apparent distress at this time. Patient and/or jb4 family updated on plan of care and expected duration. Pain level reassessed. Patient is alert, oriented x 3, equal unlabored respirations, skin warm/dry/pink. 01:42 Reassessment: Patient appears in no apparent distress at this time. Patient and/or jb4 family updated on plan of care and expected duration. Pain level reassessed. Patient is alert, oriented x 3, equal unlabored respirations, skin warm/dry/pink. PT transferred to new room on 2nd floor via stretcher, with bicycle repair technician. Vital Signs: 07/21 21:22 BP 85 / 55; Pulse 115; Resp 16; Temp 98.2; Pulse Ox 100% on R/A; Weight 68.04 kg; la1 Height 5 ft. 10 in. (177.80 cm); 22:30 BP 95 / 69; Pulse 106; Resp 16; Pulse Ox 100% on R/A; jb4 23:30 BP 106 / 56; Pulse 95; Resp 18; Pulse Ox 100% on R/A; jb4 07/22 00:30 BP 113 / 48; Pulse 93; Resp 16; Temp 98.2(O); Pulse Ox 100% on R/A; jb4 01:42 BP 105 / 70; Pulse 94; Resp 16; Pulse Ox 95% on R/A; jb4 07/21 21:22 Body Mass Index 21.52 (68.04 kg, 177.80 cm) la1 ED Course: 07/21 20:50 Patient arrived in ED. ds1 21:22 Arm band placed on left wrist. la1 21:24 Triage completed. la1 21:25 Patient has correct armband on for positive identification. Placed in gown. Bed in low jb4 position. Call light in reach. Side rails up X 1. Pulse ox on. NIBP on. 22:18 Bienvenido Gill PA is PHCP. jr8 22:18 Antonio Rosario MD is Attending Physician. jr8 22:19 Chest Single View XRAY In Process Unspecified. EDMS 22:25 Accessed Port-a-Cath. using accessed w/ # 20 Rogel needle, ,sterile technique, Clean \T\ jb4 dry. Dressing intact. Good blood return. Flushes easily. 22:26 Michael Cornelius, HENOK is Primary Nurse. jb4 23:38 Az Mckinney DO is Hospitalizing Provider. jr8 07/22 01:45 No provider procedures requiring assistance completed. Patient admitted, IV remains in jb4 place. Administered Medications: 07/21 22:32 Drug: NS 0.9% (30 ml/kg) 30 ml/kg Route: IV; Rate: bolus; Site: Port-a-cath; [facility] 07/22 00:35 Follow up: Response: No adverse reaction; IV Status: Completed infusion; IV Intake: jb4 2000ml 00:04 Not Given (Other Intervention Used): Rocephin 2 grams IV at calculated rate once; Given jb4 slow IV push per pharmarcy instructions 00:05 Drug: Rocephin - (cefTRIAXone) 2 grams Route: IVPB; Infused Over: 30 mins; Site: [facility] Port-a-cath; 00:35 Follow up: Response: No adverse reaction; IV Status: Completed infusion; IV Intake: jb4 100ml Point of Care Testing: Blood Glucose: 07/21 22:35 Blood Glucose: 91 mg/dL; jb Ranges: Intake: 07/22 00:35 IV: 100ml; Total: 100ml. jb4 00:35 IV: 2000ml; Total: 2100ml. jb4 Outcome: 07/21 23:38 Decision to Hospitalize by Provider. jr8 07/22 01:45 Admitted to Med/surg accompanied by tech, via wheelchair, room 204, Report called to eunice Camarena RN Condition: stable Discharge instructions given to patient, family, Instructed on the need for admit, Demonstrated understanding of instructions. 01:46 Patient left the ED. eunice Signatures: Dispatcher [employer] EDDC Francia Kumar dsBienvenido Leigh PA PA jr8 Jhonatan Aguillon RN RN la1 Michael Cornelius RN RN jb4 Tari Cline3
--- NOTE | 2019-07-21 23:40 | EDPHYS ---
Physician Documentation [facility] Name: Seth Oconnor Age: 64 yrs Sex: Male : 1955 Arrival Date: 07/21/2019 Time: 20:50 Bed 13 Private MD: ED Physician Antonio Rosario HPI: 07/21 23:30 This 64 yrs old Male presents to ER via Wheelchair with complaints of Low Blood jr8 Pressure. 23:30 Patient came to ED from home today. stated that he last chemo was this past jr8 Sunday. Stated that his blood pressure is low and he has not been eating and drinking very much. Severity of symptoms: At their worst the symptoms were moderate in the emergency department the symptoms are unchanged. The patient has not experienced similar symptoms in the past. The patient has been recently seen by a physician:. Historical: - Allergies: 21:22 No Known Allergies; la1 - PMHx: 21:22 Cancer; Bile duct carcinoma; Diabetes - IDDM; Hypertension; la1 - Immunization history:: Adult Immunizations up to date. - Social history:: Smoking status: Patient/guardian denies using tobacco. - Ebola Screening: : No symptoms or risks identified at this time. ROS: 23:30 Eyes: Negative for injury, pain, redness, and discharge, ENT: Negative for injury, jr8 pain, and discharge, Neck: Negative for injury, pain, and swelling, Cardiovascular: Negative for chest pain, palpitations, and edema, Respiratory: Negative for shortness of breath, cough, wheezing, and pleuritic chest pain, Abdomen/GI: Negative for abdominal pain, nausea, vomiting, diarrhea, and constipation, Back: Negative for injury and pain, MS/Extremity: Negative for injury and deformity, Skin: Negative for injury, rash, and discoloration, Neuro: Negative for headache, weakness, numbness, tingling, and seizure. 23:30 Constitutional: Positive for fatigue, malaise, poor PO intake. Exam: 23:30 Eyes: Pupils equal round and reactive to light, extra-ocular motions intact. Lids and jr8 lashes normal. Conjunctiva and sclera are non-icteric and not injected. Cornea within normal limits. Periorbital areas with no swelling, redness, or edema. ENT: Nares patent. No nasal discharge, no septal abnormalities noted. Tympanic membranes are normal and external auditory canals are clear. Oropharynx with no redness, swelling, or masses, exudates, or evidence of obstruction, uvula midline. Mucous membranes moist. Neck: Trachea midline, no thyromegaly or masses palpated, and no cervical lymphadenopathy. Supple, full range of motion without nuchal rigidity, or vertebral point tenderness. No Meningismus. Cardiovascular: Regular rate and rhythm with a normal S1 and S2. No gallops, murmurs, or rubs. Normal PMI, no JVD. No pulse deficits. Left lower extremity with 2+ edema with a greater circumferenc then that of his right lower leg Respiratory: Lungs have equal breath sounds bilaterally, clear to auscultation and percussion. No rales, rhonchi or wheezes noted. No increased work of breathing, no retractions or nasal flaring. Abdomen/GI: Soft, non-tender, with normal bowel sounds. No distension or tympany. No guarding or rebound. No evidence of tenderness throughout. Back: No spinal tenderness. No costovertebral tenderness. Full range of motion. Skin: Warm, dry with normal turgor. Normal color with no rashes, no lesions, and no evidence of cellulitis. MS/ Extremity: Pulses equal, no cyanosis. Neurovascular intact. Full, normal range of motion. Neuro: Awake and alert, GCS 15, oriented to person, place, time, and situation. Cranial nerves II-XII grossly intact. Motor strength 5/5 in all extremities. Sensory grossly intact. Cerebellar exam normal. Normal gait. Vital Signs: 21:22 BP 85 / 55; Pulse 115; Resp 16; Temp 98.2; Pulse Ox 100% on R/A; Weight 68.04 kg; la1 Height 5 ft. 10 in. (177.80 cm); 22:30 BP 95 / 69; Pulse 106; Resp 16; Pulse Ox 100% on R/A; jb4 23:30 BP 106 / 56; Pulse 95; Resp 18; Pulse Ox 100% on R/A; jb4 07/22 00:30 BP 113 / 48; Pulse 93; Resp 16; Temp 98.2(O); Pulse Ox 100% on R/A; jb4 01:42 BP 105 / 70; Pulse 94; Resp 16; Pulse Ox 95% on R/A; jb4 07/21 21:22 Body Mass Index 21.52 (68.04 kg, 177.80 cm) la1 MDM: 07/21 22:26 Patient medically screened. jr8 23:30 Data reviewed: vital signs, nurses notes, lab test result(s), EKG, radiologic studies, jr8 plain films, ultrasound. Data interpreted: Pulse oximetry: on room air is 100 %. Interpretation: normal. Counseling: I had a detailed discussion with the patient and/or guardian regarding: the historical points, exam findings, and any diagnostic results supporting the discharge/admit diagnosis, lab results, radiology results, the need for further work-up and treatment in the hospital. 23:37 Physician consultation: Az Brookecheng AZEVEDO was called at 23:37, was contacted at 23:38, jr8 regarding admission, to the telemetry unit. consult, patient's condition, and will see patient. 07/21 21:38 Order name: Basic Metabolic Panel fl07/21 21:38 Order name: Blood Culture Adult (2) 07/21 21:38 Order name: CBC with Diff; Complete Time: 23:11 07/21 21:38 Order name: Ckmb; Complete Time: 23:11 07/21 21:38 Order name: CPK; Complete Time: 23:11 07/21 21:38 Order name: Lactate; Complete Time: 23:11 07/21 21:38 Order name: LFT's; Complete Time: 23:11 07/21 21:38 Order name: Lipase; Complete Time: 23:11 07/21 21:38 Order name: Procalcitonin; Complete Time: 23:28 07/21 21:38 Order name: Protime (+inr); Complete Time: 22:38 07/21 21:38 Order name: Ptt, Activated; Complete Time: 22:38 07/21 21:38 Order name: Troponin (emerg Dept Use Only); Complete Time: 23:11 07/21 21:38 Order name: Urine Microscopic Only; Complete Time: 23:11 07/21 21:39 Order name: Basic Metabolic Panel; Complete Time: 23:11 EDMS 07/21 21:38 Order name: Chest Single View XRAY 07/21 21:38 Order name: Accucheck; Complete Time: 22:33 la1 07/21 21:38 Order name: Cardiac monitoring; Complete Time: 23:17 la1 07/21 21:38 Order name: EKG - Nurse/Tech; Complete Time: 23:17 la1 07/21 21:38 Order name: IV Saline Lock - Large Bore; Complete Time: 22:33 la1 07/21 21:38 Order name: Labs collected and sent; Complete Time: 22:32 la1 07/21 21:38 Order name: O2 Per Protocol; Complete Time: 22:32 la1 07/21 21:39 Order name: Blood Culture EDVA 07/21 22:33 Order name: US Extremity Venous Unilateral Ltd jr8 07/21 22:45 Order name: Urine Dipstick--Ancillary (enter results); Complete Time: 23:11 ag4 07/21 23:03 Order name: CBC Smear Scan; Complete Time: 23:11 EDMS 07/21 23:04 Order name: Urine Culture EDVA 07/22 01:10 Order name: Lactate Sepsis 2 HR Follow-up; Complete Time: 01:15 EDMS 07/21 21:38 Order name: O2 Sat Monitoring; Complete Time: 22:32 la1 07/21 21:38 Order name: Urine Dipstick-Ancillary (obtain specimen); Complete Time: 23:18 la1 Administered Medications: 22:32 Drug: NS 0.9% (30 ml/kg) 30 ml/kg Route: IV; Rate: bolus; [facility] 07/22 00:35 Follow up: Response: No adverse reaction; IV Status: Completed infusion; IV Intake: jb4 2000ml 00:04 Not Given (Other Intervention Used): Rocephin 2 grams IV at calculated rate once; Given jb4 slow IV push per iZotope instructions 00:05 Drug: Rocephin - (cefTRIAXone) 2 grams Route: IVPB; Infused Over: 30 mins; [facility]; 00:35 Follow up: Response: No adverse reaction; IV Status: Completed infusion; IV Intake: jb4 100ml Point of Care Testing: Blood Glucose: 07/21 22:35 Blood Glucose: 91 mg/dL; jb4 Ranges: Critical Glucose Levels:Adult <50 mg/dl or >400 mg/dl <40 mg/dl or >180 mg/dl Disposition: 07/22 06:33 Co-signature as Attending Physician, Antonio Rosario MD. pkl Disposition: 07/21/19 23:38 Hospitalization ordered by Az Mckinney for Inpatient Admission. Preliminary diagnosis are Urosepsis, Dehydration, Severe sepsis. - Bed requested for Telemetry/MedSurg (Inpatient). - Status is Inpatient Admission. jb4 - Condition is Stable. - Problem is new. - Symptoms have improved. UTI on Admission? Yes Signatures: Dispatcher [employer] EDMS Adriana Arzola, RN RN Antonio Rosario MD MD pkBienvenido Wolfe PA PA jr8 Jhonatan Aguillon RN RN la1 Michael Cornelius, RN RN jb4 Corrections: (The following items were deleted from the chart) 00:12 07/21 23:38 Hospitalization Ordered by Az Mckinney DO for Inpatient Admission. Preliminary diagnosis is Urosepsis; Dehydration; Severe sepsis. Bed requested for Telemetry/MedSurg (Inpatient). Status is Inpatient Admission. Condition is Stable. Problem is new. Symptoms have improved. UTI on Admission? Yes. jr8 07/22 01:46 00:12 07/21/2019 23:38 Hospitalization Ordered by Az Mckinney DO for Inpatient jb4 Admission. Preliminary diagnosis is Urosepsis; Dehydration; Severe sepsis. Bed requested for Telemetry/MedSurg (Inpatient). Status is Inpatient Admission. Condition is Stable. Problem is new. Symptoms have improved. UTI on Admission? Yes.
[2019-07-21] MEDS ORDERED: NA CHLORIDE 0.9% 100 ML IV ONE (23:50)
[2019-07-21] MEDS ORDERED: CEFTRIAXONE 1000 MG/VIAL ONE (23:50)
--- NOTE | 2019-07-22 00:12 | P.HP ---
Certification for Inpatient Patient admitted to: Inpatient With expected LOS: >2 Midnights Patient will require the following post-hospital care: None Practitioner: I am a practitioner with admitting privileges, knowledge of patient current condition, hospital course, and medical plan of care. Services: Services provided to patient in accordance with Admission requirements found in Title 42 Section 412.3 of the Code of Federal Regulations Patient History Date of Service: 07/22/19 Primary Care Provider: Dr. Coburn; Oncology-Dr. Herrera([facility]) Reason for admission: Poor appetite, fatigue History of Present Illness: 64-year-old Panamanian presented to the emergency room with decreased appetite and increased fatigue. Patient with underlying stage IV cholangiocarcinoma, diabetes mellitus type 2 insulin dependent. Patient recently hospitalized last month at this facility then transferred to [place] due to C diff colitis and ongoing chemotherapy. He reports that since Sunday after getting chemotherapy he has had poor appetite with decreased oral intake. He has reported increased fatigue. He denies any fever, chills, or pain with urination. He denies any nausea, vomiting or diarrhea. He reports some mild shortness of breath. Some edema to the lower extremities are noted. He came to the ER for further evaluation. In the ER blood pressures were low around 80-90 systolic. He was tachycardic as well. Initial evaluation shows white count 11.8, hemoglobin 10.9 with a platelet count of 480. Sodium 141, potassium 3.5, BUN of 32, creatinine 1.72 with a GFR 40. Glucose 100. Urinalysis was positive for UTI with bacteria noted. Lactic acid elevated at 4.5. Pro calcitonin elevated at 0.76. Patient was started on sepsis protocol IV fluid hydration. Patient admitted for further evaluation and treatment. When I saw the patient the ER, he appeared comfortable. He did not appear in any respiratory distress. Blood pressure improved with IV fluids. Blood pressure now 106/56 with a heart rate of 105. Patient afebrile. Patient reports that he did have chemotherapy on Sunday. He also reported a paracentesis also done on Sunday. 4 L were removed. Allergies No Known Allergies Allergy (Unverified 06/17/19 08:29) Home medications list reviewed: Yes Home Medications: Allopurinol [Zyloprim] 100 mg PO DAILY 06/17/19 Atorvastatin Calcium [Lipitor] 40 mg PO BEDTIME 06/17/19 Famotidine 20 mg PO BID 06/17/19 Finasteride 5 mg PO DAILY 06/17/19 Gabapentin 200 mg PO BEDTIME 06/17/19 Insulin Aspart [Novolog] See Protocol SQ TID 06/17/19 Insulin Glargine Human [Lantus*] 20 units SQ BEDTIME 06/17/19 Metoprolol Succinate [Toprol Xl*] 25 mg pe PO DAILY 06/17/19 [place]-3S/Dha/Epa/Fish Oil [[place]-3 Fish Oil 1,000 mg Sfgl] 2 g PO BEDTIME Ondansetron [Ondansetron Odt] 8 mg PO Q8H PRN 06/17/19 Prochlorperazine [Compazine] 5 mg PO Q6H PRN 06/17/19 Simethicone 80 mg PO Q6H PRN 06/17/19 Tamsulosin [Flomax*] 0.4 mg PO DAILY 06/17/19 Tramadol HCl [Ultram] 50 mg PO BID PRN 06/17/19 dexAMETHasone [Decadron*] 4 mg PO DAILY 06/17/19 - Past Medical/Surgical History Diabetic: Yes -: HTN -: Diabetes mellitus type 2, insulin dependent -: History of liver abscess -: Cholangiocarcinoma stage IV -: 25% liver resection -: Cholecystectomy -: Foot surgery -: Port-A-Cath in place Psychosocial/ Personal History: Patient is - Family History Family History: Reviewed- Non-Contributory - Social History Smoking Status: Never smoker Alcohol use: No CD- Drugs: No Caffeine use: Yes Place of Residence: Home Review of Systems General: Weakness, Malaise, As per HPI Eyes: Unremarkable ENT: Unremarkable Respiratory: Shortness of Breath, As per HPI Cardiovascular: Edema, As per HPI Gastrointestinal: Unremarkable Genitourinary: Unremarkable Musculoskeletal: Pedal edema, As per HPI Integumentary: Unremarkable Neurological: Weakness, As per HPI Lymphatics: Unremarkable Physical Examination - Physical Exam General: Alert, In no apparent distress, Oriented x3, Cooperative HEENT: Atraumatic, Normocephalic, PERRLA, Other (Dry Mucous membrane) Neck: Supple, No Thyromegaly Respiratory: Clear to auscultation bilaterally, Normal air movement Cardiovascular: Abnormal pulses (Mild sinus tachycardia) Gastrointestinal: Normal bowel sounds, Soft and benign, Non-distended, No ascites, No tenderness, No masses, No rebound, No guarding, Other (Scar to the right upper quadrant) Musculoskeletal: No tenderness, No warmth Integumentary: Tenderness/swelling (1+ pitting edema to the lower extremities bilateral) Neurological: Normal speech, Normal strength at 5/5 x4 extr, Normal tone, Normal affect - Studies Laboratory Data (last 24 hrs) 07/21/19 22:08: PT 11.1, INR 0.94, APTT 32.6 07/21/19 22:08: WBC 11.8 H, Hgb 10.9 L, Hct 32.9 L, Plt Count 480 H 07/21/19 22:08: Sodium 141, Potassium 3.5, BUN 32 H, Creatinine 1.72 H, Glucose 100, Total Bilirubin 0.6, AST 24, ALT 33, Alkaline Phosphatase 175 H, Lipase 312 Assessment and Plan - Plan Impression: Sepsis secondary to UTI Acute renal injury with dehydration secondary to sepsis Diabetes mellitus type 2, insulin dependent Stage IV cholangiocarcinoma with recent chemotherapy History of recent paracentesis Edema to the lower extremities Anemia likely of chronic disease Plan: Sepsis secondary to UTI: Patient will be admitted for further treatment. Patient given sepsis protocol 30 milligram/kilogram IV fluid bolus. Will continue with aggressive IV fluid hydration. Blood pressure and heart rate improved. Continue to monitor this closely. Will keep the patient at bed rest at this time. Blood, urine cultures obtained. Patient given Rocephin 2 g IV in the emergency room. Will continue with Rocephin 1 mg IV twice daily. Continue sepsis protocol treatment and workup. Continue to reassess and monitor closely. Will provide medication for nausea, pain as needed. Will continue DVT prophylaxis-Lovenox. Will order echocardiogram to further evaluate. Daytime hospitalist team will continue his care tomorrow. Acute renal injury with dehydration secondary to sepsis: Continue aggressive IV fluid hydration. Patient given 30 milligram/kilogram IV fluid bolus. Will continue with half-normal saline thereafter. Will continue to adjust IV fluids. Will consult Nephrology to continue to monitor closely and for continuity of care. Diabetes mellitus type 2, insulin dependent: Will provide insulin sliding scale. Will monitor Accu-Cheks closely. Once more stable will continue with his basal insulin. Stage IV cholangiocarcinoma with recent chemotherapy: Patient had recent chemotherapy on Sunday at [facility]. History of recent paracentesis: Patient had paracentesis done this past Sunday at [facility]. 4 L removed. Edema to the lower extremities: Will check venous ultrasound to rule out DVT. Patient on DVT prophylaxis-Lovenox. Will monitor this closely. Will check echocardiogram to further evaluate. Anemia likely of chronic disease: Continue to monitor closely Discharge Plan: Home Plan to discharge in: Greater than 2 days - Advance Directives Does patient have a Living Will: No Does patient have a Durable POA for Healthcare: No - Code Status/Comfort Care Code Status Assessed: Yes (Patient is full code) Time Spent Managing Pts Care (In Minutes): 55
[2019-07-22] MEDS ORDERED: TRAMADOL HCL 50 MG TAB PO PRN (01:01)
[2019-07-22] MEDS ORDERED: ONDANSETRON 4 MG/2 ML VIAL IV PRN (01:01)
[2019-07-22] MEDS ORDERED: ACETAMINOPHEN 500 MG TAB PO PRN (01:01)
[2019-07-22 02:25] VITALS: BMI 23.3
--- NOTE | 2019-07-22 02:30 | P.INFCA ---
Sepsis Focused Assessment - Focused Assessment Complete? Sepsis Focused Assessment Completed?: Yes - Sepsis Screen Result Severe Sepsis: Positive - Evaluation Current stage of sepsis: Severe sepsis - Vital Signs Reviewed: Yes Heart rate: 94 Blood Pressure: 105/70 Respiratory Rate: 16 - Examination Heart: Regular rate/rhythm Lungs: Clear bilaterally Peripheral pulses: 3+ Normal Peripheral pulse location: Radial Capillary refill: <2 Seconds Skin examination: Normal turgor (Patient doing well. Eating a sandwich. Sitting at bedside. )
[2019-07-22] MEDS: NACHLORIDE 0.45% 1,000 ML IV SCH ×3 (03:01→20:36)
[2019-07-22] MEDS: PANTOPRAZOLE 40MG TABLET PO SCH (03:16)
[2019-07-22] MEDS ORDERED: NA CHLORIDE 0.9% 250 ML IV ONE (06:50)
[2019-07-22] MEDS: INSULIN -REGULAR HUMAN 50 UNIT/0.5 ML ML SQ SCH ×4 (07:30→20:49)
--- NOTE | 2019-07-22 08:13 | RAD REPORT ---
EXAM DESCRIPTION: USExtremity Venous Uni Ltd07/22/2019 1:30 am CLINICAL HISTORY: left leg pain COMPARISON: None. FINDINGS: Left common femoral, superficial femoral, popliteal and posterior tibial veins are compre ssible and demonstrate augmentation. Doppler demonstrates good flow. IMPRESSION: No evidence of deep venous thrombosis involving the left lower extremity.
--- NOTE | 2019-07-22 08:14 | RAD REPORT ---
EXAM DESCRIPTION: [place] Single View07/21/2019 10:19 pm CLINICAL HISTORY: Cough COMPARISON: May 2019 FINDINGS: The lungs appear clear of acute infiltrate. The heart is normal size. A central venous ca theters is tip in the superior vena cava IMPRESSION: No acute abnormalities displayed
[2019-07-22] MEDS: CEFTRIAXONE/SWI 1gm 1 GM/10 ML SYR IV SCH ×2 (08:19→20:40)
[2019-07-22] MEDS: ENOXAPARIN 40 MG/0.4 ML SQ SCH (08:19)
[2019-07-22] MEDS ORDERED: CEFTRIAXONE 1 GM/NS 50 ML 1 GM/50 ML BAG IV SCH (09:00)
[2019-07-22] MEDS ORDERED: PHENOL 1.4% ORAL SPRAY 180ML MM PRN (10:20)
[2019-07-22] MEDS: MAGIC MOUTHWASH 180 ML BTL PO PRN ×2 (15:45→22:39)
--- NOTE | 2019-07-22 17:18 | P.CNS ---
Date of Consult: 07/22/19 Reason for Consult: BECCA/ CKD Requesting Physician: James Cristobal Primary Care Provider: Dr. Coburn; Oncology-Dr. Herrera([facility]) Chief Complaint: Poor appetite, fatigue History of Present Illness: 64-year-old Sudanese presented to the emergency room with decreased appetite and increased fatigue. Patient with underlying stage IV cholangiocarcinoma, diabetes mellitus type 2 insulin dependent. Patient recently hospitalized last month at this facility then transferred to [place] due to C diff colitis and ongoing chemotherapy. He reports that since Sunday after getting chemotherapy he has had poor appetite with decreased oral intake. He has reported increased fatigue. He denies any fever, chills, or pain with urination. He denies any nausea, vomiting or diarrhea. He reports some mild shortness of breath. Some edema to the lower extremities are noted. He came to the ER for further evaluation. In the ER blood pressures were low around 80-90 systolic. He was tachycardic as well. Initial evaluation shows white count 11.8, hemoglobin 10.9 with a platelet count of 480. Sodium 141, potassium 3.5, BUN of 32, creatinine 1.72 with a GFR 40. Glucose 100. Urinalysis was positive for UTI with bacteria noted. Lactic acid elevated at 4.5. Pro calcitonin elevated at 0.76. Patient was started on sepsis protocol IV fluid hydration. Patient admitted for further evaluation and treatment. 23:30 This 64 yrs old Male presents to ER via Wheelchair with complaints of Low Blood jr8 Pressure. 23:30 Patient came to ED from home today. stated that he last chemo was this past jr8 Sunday. Stated that his blood pressure is low and he has not been eating and drinking very much. Severity of symptoms: At their worst the symptoms were moderate in the emergency department the symptoms are unchanged. The patient has not experienced similar symptoms in the past. The patient has been recently seen by a physician:. Allergies No Known Allergies Allergy (Verified 07/22/19 00:58) Home medications list reviewed: Yes Home Medications: Allopurinol [Zyloprim] 100 mg PO DAILY 06/17/19 Atorvastatin Calcium [Lipitor] 40 mg PO BEDTIME 06/17/19 Famotidine 20 mg PO BID 06/17/19 Finasteride 5 mg PO DAILY 06/17/19 Gabapentin 200 mg PO BEDTIME 06/17/19 Insulin Aspart [Novolog] See Protocol SQ TID 06/17/19 Insulin Glargine Human [Lantus*] 20 units SQ BEDTIME 06/17/19 Metoprolol Succinate [Toprol Xl*] 25 mg PO DAILY 06/17/19 [place]-3S/Dha/Epa/Fish Oil [[place]-3 Fish Oil 1,000 mg Sfgl] 2 g PO BEDTIME Ondansetron [Ondansetron Odt] 8 mg PO Q8H PRN 06/17/19 Prochlorperazine [Compazine] 5 mg PO Q6H PRN 06/17/19 Simethicone 80 mg PO Q6H PRN 06/17/19 Tamsulosin [Flomax*] 0.4 mg PO DAILY 06/17/19 Tramadol HCl [Ultram] 50 mg PO BID PRN 06/17/19 dexAMETHasone [Decadron*] 4 mg PO DAILY 06/17/19 - Past Medical/Surgical History Diabetic: Yes -: HTN -: Diabetes mellitus type 2, insulin dependent -: History of liver abscess -: Cholangiocarcinoma stage IV -: 25% liver resection -: Cholecystectomy -: Foot surgery -: Port-A-Cath in place Psychosocial/ Personal History: Patient is - Social History Smoking Status: Unknown if ever smoked Alcohol use: No CD- Drugs: No Caffeine use: Yes Place of Residence: Home Review of Systems 10-point ROS is otherwise unremarkable General: Weakness, Malaise Respiratory: SOB with Excertion Cardiovascular: Edema Neurological: Weakness Physical Examination Temp Pulse Resp BP Pulse Ox 97.4 F 95 H 18 106/56 L 99 07/22/19 16:00 07/22/19 16:00 07/22/19 16:00 07/22/19 16:00 07/22/19 16:00 General: In no apparent distress, Oriented x3, Cooperative HEENT: Atraumatic Neck: Supple Respiratory: Clear to auscultation bilaterally Cardiovascular: Regular rate/rhythm, Edema Gastrointestinal: Soft and benign, Non-distended Musculoskeletal: No clubbing, No contractures Integumentary: No rashes, No cyanosis Neurological: Normal speech Laboratory Data (last 24 hrs) 07/21/19 22:08: PT 11.1, INR 0.94, APTT 32.6 07/21/19 22:08: WBC 11.8 H, Hgb 10.9 L, Hct 32.9 L, Plt Count 480 H 07/21/19 22:08: Sodium 141, Potassium 3.5, BUN 32 H, Creatinine 1.72 H, Glucose 100, Total Bilirubin 0.6, AST 24, ALT 33, Alkaline Phosphatase 175 H, Lipase 312 Imagings Data: EXAM DESCRIPTION: [place] Single View07/21/2019 10:19 pm CLINICAL HISTORY: Cough COMPARISON: May 2019 FINDINGS: The lungs appear clear of acute infiltrate. The heart is normal size. A central venous catheters is tip in the superior vena cava IMPRESSION: No acute abnormalities displayed Conclusions/Impression: A/ BECCA in the setting of sepsis. Hypokalemia. CKD III with proteinuria. Localized edema. Acute cystitis. Sepsis. Hypocalcemia. DM II with CKD. HTN with CKD. Gout. BPH/ LUTS. Moderate Malnutrition. P/ Continue current POC and Medications. Continue IVF with 1/2NS. Replete potassium. Continue abx. No NSAIDs. AM labs. Daily weight. Thank you kindly for the consultation.
--- NOTE | 2019-07-22 17:37 | EKG ---
Test Date: 2019-07-21 Test Time: 22:38:25 Deputy [employer] [place] Marshal: ZAYRA MEASUREMENT RESULTS: Intervals: Rate: 98 NM: 172 QRSD: 70 QT: 368 QTc: 469 [place]: P: 47 NM: 172 QRS: 50 T: 82 INTERPRETIVE STATEMENTS: Sinus rhythm with marked sinus arrhythmia with premature atrial complexes Nonspecific ST and T wave abnormality Abnormal ECG Compared to ECG 06/17/2019 06:09:32 Atrial premature complex(es) now present ST (T wave) deviation now present Prolonged QT interval no longer present Electronically Signed On 07-22-19 17:34:56 CDT by Stephen Kumar
[2019-07-22] MEDS ORDERED: POTASSIUM CL SA 10 MEQ TAB PO ONE (20:53)
[2019-07-22] MEDS ORDERED: LORAZEPAM 0.5 MG TABLET PO PRN (23:18)
[2019-07-22] MEDS ORDERED: GABAPENTIN 100 MG CAP PO PRN (23:27)
[2019-07-23] MEDS: NACHLORIDE 0.45% 1,000 ML IV SCH ×4 (01:01→20:32)
[2019-07-23] MEDS: MAGIC MOUTHWASH 180 ML BTL PO PRN ×2 (05:28→14:57)
[2019-07-23] MEDS: PANTOPRAZOLE 40MG TABLET PO SCH (05:29)
[2019-07-23 05:36] LABS: Urine Appearance CLEAR; Urine Bilirubin NEGATIVE (NEG); Urine Blood NEGATIVE (NEG); Urine Color YELLOW; Urine Glucose NEGATIVE (NEG); Urine Protein TRACE (NEG); Urine Urobilinogen 0.2 mg/dL (0.2-1.0); Urine pH 5.5 (5.0-7.0)
[2019-07-23 05:47] LABS: Absolute Lymphocytes (CBC) 0.7 K/uL (0.7-4.9); Basophils % 0.3 % (0-1.3); Hematocrit 29.7 % (39.6-49.0); Lymphocytes % 6.4 % (15.3-44.8); MPV 7.8 fL (7.6-11.3); RBC Red Blood Cell Count 3.65 M/uL (4.33-5.43)
[2019-07-23 05:54] LABS: Magnesium 1.5 mg/dL (1.8-2.4); Phosphorus 1.3 mg/dL (2.5-4.9); Potassium 3.1 mmol/L (3.5-5.1)
[2019-07-23] MEDS ORDERED: Magnesium Sulfate 2gm IVPB 2 G/50 ML BAG IV ONE (06:13)
[2019-07-23] MEDS ORDERED: POTASSIUM 25 MEQ EFFERV TAB PO ONE (06:14)
[2019-07-23 06:30] LABS: Urine Bacteria <20 /HPF (NONE SEEN); Urine Culture Reflex Order NOT NEEDED; Urine RBC NONE SEEN /HPF (NONE SEEN); Urine Yeast PRESENT (NONE SEEN)
[2019-07-23] MEDS: INSULIN -REGULAR HUMAN 50 UNIT/0.5 ML ML SQ SCH ×4 (07:30→20:33)
--- NOTE | 2019-07-23 08:54 | ECHO ---
HEIGHT: 5 ft 10 in WEIGHT: 161 lb 8 oz DATE OF STUDY: 07/22/[address]: Az Mckinney DO 2-DIMENSIONAL: YES M.MODE: YES DOPPLER: YES COLOR FLOW: YES TDS: NO PORTABLE: NO DEFINITY: NO BUBBLE STUDY: NO DIAGNOSIS: SEPSIS, UTI CARDIAC HISTORY: CATHERIZATION: NO SURGERY: NO PROSTHETIC VALVE: NO PACEMAKER: NO MEASUREMENTS (cm) DIASTOLIC (NORMALS) SYSTOLIC (NORMALS) IVSd 0.9 (0.6-1.2) LA Diam 3.6 (1.9-4.0) LVEF 58% LVIDd 4.0 (3.5-5.7) LVIDs 2.8 (2.0-3.5) %FS 30% LVPWd 1.0 (0.6-1.2) Ao Diam 2.5 (2.0-3.7) 2 DIMENSIONAL ASSESSMENT: RIGHT ATRIUM: NORMAL LEFT ATRIUM: NORMAL RIGHT VENTRICLE: NORMAL LEFT VENTRICLE: NORMAL TRICUSPID VALVE: NORMAL MITRAL VALVE: NORMAL PULMONIC VALVE: NORMAL AORTIC VALVE: NORMAL PERICARDIAL EFFUSION: NONE AORTIC ROOT: NORMAL LEFT VENTRICULAR WALL MOTION: NORMAL DOPPLER/COLOR FLOW: NORMAL COMMENTS: NORMAL 2D ECHOCARDIOGRAM WITH DOPPLER. NO WALL MOTION ABNORMALITY. NO EFFUSION. TECHNOLOGIST: Malia PIRES
[2019-07-23] MEDS: CEFTRIAXONE/SWI 1gm 1 GM/10 ML SYR IV SCH ×2 (09:00→20:32)
[2019-07-23] MEDS: ENOXAPARIN 40 MG/0.4 ML SQ SCH (09:36)
[2019-07-23] MEDS: CALCIUM CARB 500MG/VIT D 200 IU TAB PO SCH ×2 (09:36→20:31)
--- NOTE | 2019-07-23 12:39 | P.PN ---
Subjective Date of Service: 07/23/19 Primary Care Provider: Dr. Coburn; Oncology-Dr. Herrera([facility]) Chief Complaint: Poor appetite, fatigue Subjective: Improving Patient seen and examined at bedside. Chart reviewed and case discussed with nursing staff. No family at bedside Patient doing better overall. Complains of mouth sores this am. Otherwise no complaints No acute events noted overnight. Review of Systems 10-point ROS is otherwise unremarkable Physical Examination - Vital Signs Temperature: 97.1 F Blood Pressure: 100/58 Pulse: 88 Respirations: 15 Pulse Ox (%): 99 - Physical Exam General: Alert, In no apparent distress, Oriented x3 HEENT: Atraumatic, PERRLA, EOMI Neck: Supple, JVD not distended Respiratory: Clear to auscultation bilaterally, Normal air movement Cardiovascular: Regular rate/rhythm, Normal S1 S2 Gastrointestinal: Normal bowel sounds, No tenderness Musculoskeletal: No tenderness Integumentary: No rashes Neurological: Normal speech, Normal tone, Normal affect Lymphatics: No axilla or inguinal lymphadenopathy Assessment And Plan - Plan Sepsis secondary to UTI, Improving Acute renal injury with dehydration secondary to sepsis, Resolved. Diabetes mellitus type 2, insulin dependent Stage IV cholangiocarcinoma with recent chemotherapy History of recent paracentesis Edema to the lower extremities Anemia likely of chronic disease Plan: Sepsis secondary to UTI: -Patient given sepsis protocol 30 milligram/kilogram IV fluid bolus. -Will continue with aggressive IV fluid hydration. -Pending Blood, urine cultures -Continue IV rocephin 1 g BID -Continue sepsis protocol treatment and workup. -Continue to reassess and monitor closely. Acute renal injury with dehydration secondary to sepsis: Resolved -Continue aggressive IV fluid hydration. Patient given 30 milligram/kilogram IV fluid bolus. -Nephrology consulted to monitor closely and for continuity of care. Diabetes mellitus type 2, insulin dependent: -Will provide insulin sliding scale. -Will monitor Accu-Cheks closely. Stage IV cholangiocarcinoma with recent chemotherapy: Patient had recent chemotherapy on Sunday at [facility]. History of recent paracentesis: Patient had paracentesis done this past Sunday at [facility]. 4 L removed. Edema to the lower extremities: Improving -Ultrasound negative for DVT; -ECHO normal -continue to monitor Anemia likely of chronic disease: Continue to monitor closely DVT Prophylaxis: Lovenox GI Prophylaxis: None Diet: Regular Disposition: Pending symptomatic improvement and urine cultures. Anticipate discharge home in the next 24-28 hrs pending clinical improvement. Discharge Plan: Home Plan to discharge in: 24 Hours
[2019-07-23] MEDS ORDERED: POTASSIUM CL SA 10 MEQ TAB PO ONE (16:00)
[2019-07-23] MEDS ORDERED: GABAPENTIN 100 MG CAP PO SCH (21:00)
[2019-07-24] MEDS ORDERED: POTASSIUM CL SA 10 MEQ TAB PO ONE ×3 (00:30→16:29)
[2019-07-24] MEDS: NACHLORIDE 0.45% 1,000 ML IV SCH ×6 (00:47→21:12)
[2019-07-24 05:10] LABS: Absolute Lymphocytes (CBC) 0.5 K/uL (0.7-4.9); Basophils % 0.6 % (0-1.3); Hematocrit 22.8 % (39.6-49.0); Lymphocytes % 13.9 % (15.3-44.8); MPV 7.7 fL (7.6-11.3); RBC Red Blood Cell Count 2.85 M/uL (4.33-5.43)
[2019-07-24 05:35] LABS: Magnesium 1.9 mg/dL (1.8-2.4); Potassium 3.3 mmol/L (3.5-5.1)
[2019-07-24] MEDS: PANTOPRAZOLE 40MG TABLET PO SCH (05:51)
[2019-07-24 07:13] LABS: Ferritin 1334.9 ng/mL (26-388)
[2019-07-24 07:13] LABS: Hematocrit 23.1 % (39.6-49.0)
[2019-07-24] MEDS ORDERED: POTASSIUM 25 MEQ EFFERV TAB PO ONE (07:15)
[2019-07-24] MEDS: INSULIN -REGULAR HUMAN 50 UNIT/0.5 ML ML SQ SCH ×4 (07:30→21:15)
[2019-07-24] MEDS: CALCIUM CARB 500MG/VIT D 200 IU TAB PO SCH ×2 (08:03→21:09)
[2019-07-24] MEDS: ENOXAPARIN 40 MG/0.4 ML SQ SCH (08:03)
[2019-07-24] MEDS: CEFTRIAXONE/SWI 1gm 1 GM/10 ML SYR IV SCH (08:04)
[2019-07-24] MEDS: MAGIC MOUTHWASH 180 ML BTL PO PRN ×2 (09:30→18:05)
[2019-07-24] MEDS: levoFLOXacin 500 MG TAB PO SCH (11:55)
[2019-07-24] MEDS ORDERED: SIMETHICONE 80 MG TAB PO PRN (12:30)
[2019-07-24] MEDS ORDERED: PROCHLORPERAZINE 5 MG TAB PO PRN (12:30)
--- NOTE | 2019-07-24 15:16 | P.PN ---
Subjective Date of Service: 07/24/19 Primary Care Provider: Dr. Coburn; Oncology-Dr. Herrera([facility]) Chief Complaint: Poor appetite, fatigue Patient seen and examined at bedside. Chart reviewed and case discussed with nursing staff. No family at bedside Patient doing better overall. Complains of mouth sores this am. Otherwise no complaints No acute events noted overnight. Review of Systems 10-point ROS is otherwise unremarkable Physical Examination - Vital Signs Temperature: 97.6 F Blood Pressure: 99/58 Pulse: 93 Respirations: 16 Pulse Ox (%): 100 - Physical Exam General: Alert, In no apparent distress, Oriented x3 HEENT: Atraumatic, PERRLA, EOMI Neck: Supple, JVD not distended Respiratory: Clear to auscultation bilaterally, Normal air movement Cardiovascular: Regular rate/rhythm, Normal S1 S2 Gastrointestinal: Normal bowel sounds, No tenderness Musculoskeletal: No tenderness Integumentary: No rashes Neurological: Normal speech, Normal tone, Normal affect Lymphatics: No axilla or inguinal lymphadenopathy - Studies Microbiology Data (last 24 hrs): 07/21/19 22:31 Clean Catch Urine [place] Count - Final >100,000 CFU/ML. 07/21/19 22:31 Clean Catch Urine - Final Klebsiella Pneumoniae Assessment And Plan - Plan Sepsis secondary to UTI, Improving Acute renal injury with dehydration secondary to sepsis, Resolved. Diabetes mellitus type 2, insulin dependent Stage IV cholangiocarcinoma with recent chemotherapy History of recent paracentesis Edema to the lower extremities Anemia likely of chronic disease Plan: Sepsis secondary to UTI: -Patient given sepsis protocol 30 milligram/kilogram IV fluid bolus. -Will continue with aggressive IV fluid hydration. -Blood cultures NGTD; Urince cultures positive for klebsiella pneumonia, sensitive to levaquin -Antibiotics adjusted to PO levaquin -Continue sepsis protocol treatment and workup. -Continue to reassess and monitor closely. Acute renal injury with dehydration secondary to sepsis: Resolved -Continue aggressive IV fluid hydration. Patient given 30 milligram/kilogram IV fluid bolus. -Nephrology consulted to monitor closely and for continuity of care. Diabetes mellitus type 2, insulin dependent: -Will provide insulin sliding scale. -Will monitor Accu-Cheks closely. Stage IV cholangiocarcinoma with recent chemotherapy: Patient had recent chemotherapy on Sunday at [facility]. History of recent paracentesis: Patient had paracentesis done this past [place] at [facility]. 4 L removed. Edema to the lower extremities: Improving -Ultrasound negative for DVT; -ECHO normal -continue to monitor Anemia, likely secondary to chemo on top of underlying chronic disease Hgb 7.5 this am, Discussed case with patient's oncologist and will go ahead and transfuse 1 unit PRBCs. Continue to monitor closely Leukopenia likely secondary to chemo Afebrile will conitnue to monitor. no need for neupogen at this time. Discussed with oncology. DVT Prophylaxis: Lovenox GI Prophylaxis: None Diet: Regular Disposition: Pending symptomatic improvement. Anticipate discharge home in the next 24 hrs pending clinical improvement.
--- NOTE | 2019-07-24 15:53 | P.PN ---
Date of Service: 07/24/19 Vital Signs Temp Pulse Resp BP Pulse Ox 97.6 F 93 H 16 99/58 L 100 07/24/19 15:15 07/24/19 15:15 07/24/19 15:15 07/24/19 15:15 07/24/19 15:15 Medications Acetaminophen (Tylenol -Extra Strength) 500 mg PO Q4HP PRN PRN Reason: TEMP > 101' F Stop: 08/21/19 01:02 Allopurinol (Zyloprim) 100 mg PO DAILY [facility] Stop: 08/24/19 09:01 Atorvastatin Calcium (Lipitor) 40 mg PO BEDTIME [facility] Stop: 08/23/19 21:01 Calcium Carbonate (Oscal 500 + Vit D 200 Iu Tab) 1 tab PO BID [facility] Stop: 08/22/19 09:01 Last Admin: 07/24/19 08:03 Dose: 1 tab Dexamethasone (Decadron) 4 mg PO DAILY [facility] Stop: 08/24/19 09:01 Diphenhydr/Magaldrate/Simeth/Lidoca (Magic Mouthwash) 15 ml PO QID PRN PRN Reason: SORE THROAT Stop: 08/21/19 10:23 Last Admin: 07/24/19 09:30 Dose: 15 ml Enoxaparin Sodium (Lovenox 40 Mg Inj) 40 mg SQ DAILY [facility] Stop: 08/21/19 09:01 Last Admin: 07/24/19 08:03 Dose: 40 mg Famotidine (Pepcid) 20 mg PO BID [facility]; Protocol Stop: 08/23/19 21:01 Finasteride (Proscar) 5 mg PO DAILY [facility] Stop: 08/24/19 09:01 Fish Oil (Fish Oil 1,000 Mg Cap) 2,000 mg PO BEDTIME [facility] Stop: 08/23/19 21:01 Gabapentin (Neurontin) 200 mg PO BEDTIME PRN PRN Reason: Pain scale 2-4 (Mild) Stop: 08/22/19 21:01 Last Admin: 07/22/19 23:44 Dose: 200 mg Sodium Chloride (Sodium Chloride 0.45%) 1,000 mls @ 125 mls/hr IV .Q8H [facility] Stop: 08/21/19 01:02 Last Admin: 07/24/19 12:04 Dose: 1,000 mls Insulin Glargine (Lantus) 20 units SQ BEDTIME [facility] Stop: 08/23/19 21:01 Insulin Human Regular (Novolin -R) 0 unit SQ ACHS [facility]; Protocol Stop: 08/21/19 07:31 Last Admin: 07/24/19 11:56 Dose: 2 unit Levofloxacin (Levaquin) 500 mg PO DAILY [facility]; Protocol Stop: 08/24/19 09:01 Last Admin: 07/24/19 11:55 Dose: 500 mg Lorazepam (Ativan) 0.25 mg PO BID PRN PRN Reason: AGITATION Stop: 08/21/19 23:19 Last Admin: 07/22/19 23:44 Dose: 0.25 mg Metoprolol Succinate (Toprol Xl) 25 mg PO DAILY [facility] Stop: 08/24/19 09:01 Ondansetron HCl (Zofran) 4 mg IV Q6HP PRN PRN Reason: NAUSEA / VOMITING Stop: 08/21/19 01:02 Pantoprazole [facility] ([facility]) [facility] Protocol Stop: 08/21/19 06:31 Last Admin: 07/24/19 05:51 Dose: 40 mg Phenol (Phenaseptic [place]) 2 appl MM Q4H PRN PRN Reason: SORE THROAT Stop: 08/21/19 10:21 Last Admin: 07/22/19 17:51 Dose: 2 appl Prochlorperazine (Compazine) 5 mg PO Q6H PRN PRN Reason: NAUSEA / VOMITING Stop: 08/23/19 12:31 Simethicone (Mylicon Tab) 80 mg PO Q6H PRN PRN Reason: GAS Stop: 08/23/19 12:31 Sodium Chloride (Normal Saline Flush) 10 ml IV BID [facility] Stop: 08/21/19 09:01 Last Admin: 07/24/19 09:00 Dose: Not Given Tamsulosin HCl (Flomax) 0.4 mg PO DAILY [facility] Stop: 08/24/19 09:01 Tramadol HCl (Ultram) 50 mg PO TID PRN PRN Reason: Pain scale 2-4 (Mild) Stop: 08/21/19 01:02 Last Admin: 07/22/19 03:16 Dose: 50 mg Microbiology Results 07/21/19 22:31 Clean Catch Urine [place] Count - Final >100,000 CFU/ML. 07/21/19 22:31 Clean Catch Urine - Final Klebsiella Pneumoniae 07/21/19 22:25 Blood - Blood Aerobic Blood Culture - Preliminary No growth in 24 hours. 07/21/19 22:25 Blood - Blood Anaerobic Blood Culture - Preliminary No growth in 24 hours. 07/21/19 22:08 Blood - Blood Aerobic Blood Culture - Preliminary No growth in 24 hours. 07/21/19 22:08 Blood - Blood Anaerobic Blood Culture - Preliminary No growth in 24 hours. Assessment/ Plan: Nephrology. Feeling better. CPS stable without CP or SOB. No acute events overnight. Vitals, medications, blood work and imaging reviewed in the chart. General: In no apparent distress, Oriented x3, Cooperative HEENT: Atraumatic Neck: Supple Respiratory: Clear to auscultation bilaterally Cardiovascular: Regular rate/rhythm, Edema Gastrointestinal: Soft and benign, Non-distended Musculoskeletal: No clubbing, No contractures Integumentary: No rashes, No cyanosis Neurological: Normal speech Laboratory Data (last 24 hrs) 07/21/19 22:08: PT 11.1, INR 0.94, APTT 32.6 07/21/19 22:08: WBC 11.8 H, Hgb 10.9 L, Hct 32.9 L, Plt Count 480 H 07/21/19 22:08: Sodium 141, Potassium 3.5, BUN 32 H, Creatinine 1.72 H, Glucose 100, Total Bilirubin 0.6, AST 24, ALT 33, Alkaline Phosphatase 175 H, Lipase 312 Imagings Data: EXAM DESCRIPTION: [place] Single View07/21/2019 10:19 pm CLINICAL HISTORY: Cough COMPARISON: May 2019 FINDINGS: The lungs appear clear of acute infiltrate. The heart is normal size. A central venous catheters is tip in the superior vena cava IMPRESSION: No acute abnormalities displayed Conclusions/Impression: A/ BECCA in the setting of sepsis & hypovolemia, resolved. Hypokalemia. Hypocalcemia. Hypomagnesemia. HypoPO4. CKD III with proteinuria. Localized edema. Acute cystitis. Sepsis. Hypocalcemia. DM II with CKD. HTN with CKD. Gout. BPH/ LUTS. Anemia in chronic illness. Iron deficiency. Moderate Malnutrition. P/ Continue current POC and Medications. Continue IVF with 1/2NS. Replete potassium as ordered. Replete phosphorus. Start Vitamin D. Continue abx. Transfuse PRBC as needed. Encourage nutrition. No NSAIDs. AM labs. Daily weight.
[2019-07-24] MEDS ORDERED: DOCOSAHEXANOIC AC/EPA 1000 MG PO SCH (21:00)
[2019-07-24] MEDS ORDERED: ATORVASTATIN 40 MG TAB PO SCH (21:00)
[2019-07-24] MEDS ORDERED: INSULIN GLARGINE 100 UNITS/ML SQ SCH (21:00)
[2019-07-24] MEDS: CALCITROL 0.25 MCG CAP PO SCH (21:10)
[2019-07-24] MEDS: FAMOTIDINE 20 MG TAB PO SCH (21:10)
[2019-07-24] MEDS: TAMSULOSIN 0.4 MG SR CAP PO SCH (21:11)
[2019-07-24] MEDS ORDERED: NA CHLORIDE 0.9% 250 ML ONE (21:31)
[2019-07-25 01:36] VITALS: O2SAT 100
[2019-07-25 05:08] LABS: Absolute Lymphocytes (CBC) 0.6 K/uL (0.7-4.9); Basophils % 0.7 % (0-1.3); Hematocrit 24.9 % (39.6-49.0); Lymphocytes % 18.2 % (15.3-44.8); MPV 7.7 fL (7.6-11.3); RBC Red Blood Cell Count 3.11 M/uL (4.33-5.43)
[2019-07-25 05:17] LABS: Magnesium 1.6 mg/dL (1.8-2.4); Potassium 3.5 mmol/L (3.5-5.1); Uric Acid 7.7 mg/dL (3.5-7.2)
[2019-07-25 05:20] LABS: Phosphorus 0.7 mg/dL (2.5-4.9)
[2019-07-25] MEDS ORDERED: D50W 25 GM/50 ML SYRINGE IV ONE (05:58)
[2019-07-25] MEDS: NACHLORIDE 0.45% 1,000 ML IV SCH ×2 (06:00→09:04)
[2019-07-25] MEDS: PANTOPRAZOLE 40MG TABLET PO SCH (06:08)
[2019-07-25 07:22] VITALS: BP 98/53
[2019-07-25] MEDS: INSULIN -REGULAR HUMAN 50 UNIT/0.5 ML ML SQ SCH (07:30)
[2019-07-25] MEDS: TAMSULOSIN 0.4 MG SR CAP PO SCH (09:00)
[2019-07-25] MEDS ORDERED: METOPROLOL XL 25 MG TAB PO SCH (09:00)
[2019-07-25] MEDS ORDERED: POTASSIUM CL SA 10 MEQ TAB PO ONE (09:00)
[2019-07-25] MEDS ORDERED: ALLOPURINOL 100 MG TAB PO SCH (09:00)
[2019-07-25] MEDS: MAGIC MOUTHWASH 180 ML BTL PO PRN (09:00)
[2019-07-25] MEDS ORDERED: FINASTERIDE 5 MG TAB PO SCH (09:00)
[2019-07-25] MEDS: FAMOTIDINE 20 MG TAB PO SCH (09:00)
[2019-07-25] MEDS ORDERED: TAMSULOSIN 0.4 MG SR CAP PO SCH (09:00)
[2019-07-25] MEDS ORDERED: VITAMIN D 5,000 UNIT CAP PO SCH (09:00)
[2019-07-25] MEDS: CALCIUM CARB 500MG/VIT D 200 IU TAB PO SCH (09:00)
[2019-07-25] MEDS ORDERED: MAGNESIUM SULFATE 1 gm IVPB 1 GM/100 ML BAG IV ONE (09:00)
[2019-07-25] MEDS ORDERED: dexAMETHasone 4 MG TAB PO SCH (09:00)
[2019-07-25] MEDS: levoFLOXacin 500 MG TAB PO SCH (09:01)
[2019-07-25] MEDS: CALCITROL 0.25 MCG CAP PO SCH (09:01)
[2019-07-25] MEDS: ENOXAPARIN 40 MG/0.4 ML SQ SCH (09:03)
[2019-07-25 09:39] VITALS: TEMP 98.2
[2019-07-25] MEDS ORDERED: HEPARIN 500 UNIT/5 ML SYR IV PRN (11:29)
--- NOTE | 2019-07-25 11:55 | P.DS ---
Admission Date: 07/22/19 Discharge Date: 07/25/19 Primary Care Provider: Dr. Coburn; Oncology-Dr. Herrera([facility]) Disposition: ROUTINE DISCHARGE Discharge Condition: GOOD Reason for Admission: Poor appetite, fatigue Consultations: Nephrology Brief History of Present Illness: 64-year-old [place] presented to the emergency room with decreased appetite and increased fatigue. Patient with underlying stage IV cholangiocarcinoma, diabetes mellitus type 2 insulin dependent. Patient recently hospitalized last month at this facility then transferred to [place] due to C diff colitis and ongoing chemotherapy. He reports that since Sunday after getting chemotherapy he has had poor appetite with decreased oral intake. He has reported increased fatigue. He denies any fever, chills, or pain with urination. He denies any nausea, vomiting or diarrhea. He reports some mild shortness of breath. Some edema to the lower extremities are noted. He came to the ER for further evaluation. In the ER blood pressures were low around 80-90 systolic. He was tachycardic as well. Initial evaluation shows white count 11.8, hemoglobin 10.9 with a platelet count of 480. Sodium 141, potassium 3.5, BUN of 32, creatinine 1.72 with a GFR 40. Glucose 100. Urinalysis was positive for UTI with bacteria noted. Lactic acid elevated at 4.5. Pro calcitonin elevated at 0.76. Patient was started on sepsis protocol IV fluid hydration. Patient admitted for further evaluation and treatment. When I saw the patient the ER, he appeared comfortable. He did not appear in any respiratory distress. Blood pressure improved with IV fluids. Blood pressure now 106/56 with a heart rate of 105. Patient afebrile. Patient reports that he did have chemotherapy on Sunday. He also reported a paracentesis also done on Sunday. 4 L were removed. Hospital Course: Patient was admitted for sepsis, secondary to UTI. He was given sepsis protocol IV fluids along with IV antibiotics. His blood cultures remained negative, urine cultures were positive for Klebsiella pneumonia, sensitive to Levaquin. His IV antibiotics was adjusted to oral Levaquin. On admission, patient with acute renal injury, which resolved with IV fluid resuscitation. Patient has a history of stage IV cholangiocarcinoma with recent chemotherapy along with recent paracentesis for ascites. His hemoglobin did drop down to 7.5 , he received 1 unit of PRBCs. He otherwise remained stable throughout this stay. He remained afebrile throughout the stay. His WBC count did drop, but this is expected and likely related to chemotherapy. The case was also discussed with patient's oncologist at [facility], Dr. Herrera. Patient otherwise did well throughout the stay. Prior to discharge, he was tolerating an oral diet, ambulating without problems, in no acute distress and hemodynamically stable. He remained alert oriented x3 throughout the stay. His diagnoses/ treatment plan was explained to him, all questions were answered and he verbalized understanding. He was then discharged home in a safe and stable manner on oral Levaquin. He will follow up with his oncologist in the next week as well as his primary care physician in 2-3 days. Vital Signs/Physical Exam: Temp Pulse Resp BP Pulse Ox 98.2 F 99 H 18 98/53 L 99 07/25/19 08:00 07/25/19 09:00 07/25/19 08:00 07/25/19 09:00 07/25/19 08:00 General: Alert, In no apparent distress, Oriented x3 HEENT: Atraumatic, PERRLA, EOMI Neck: Supple, JVD not distended Respiratory: Clear to auscultation bilaterally, Normal air movement Cardiovascular: Regular rate/rhythm, Normal S1 S2 Gastrointestinal: Normal bowel sounds, No tenderness Musculoskeletal: No tenderness Integumentary: No rashes Neurological: Normal speech, Normal tone, Normal affect Lymphatics: No axilla or inguinal lymphadenopathy Laboratory Data at Discharge: WBC 3.2 K/uL (4.3-10.9) L D 07/25/19 04:34 Hgb 8.6 g/dL (13.6-17.9) L 07/25/19 04:34 Hct 24.9 % (39.6-49.0) L 07/25/19 04:34 Plt Count 264 K/uL (152-406) 07/25/19 04:34 PT 11.1 SECONDS (9.5-12.5) 07/21/19 22:08 INR 0.94 07/21/19 22:08 APTT 32.6 SECONDS (24.3-36.9) 07/21/19 22:08 Sodium 144 mmol/L (136-145) 07/25/19 04:34 Potassium 3.5 mmol/L (3.5-5.1) 07/25/19 04:34 BUN 11 mg/dL (7-18) 07/25/19 04:34 Creatinine 0.92 mg/dL (0.55-1.3) 07/25/19 04:34 Glucose 45 mg/dL (74-106) L* 07/25/19 04:34 Uric Acid 7.7 mg/dL (3.5-7.2) H D 07/25/19 04:34 Phosphorus 0.7 mg/dL (2.5-4.9) L* 07/25/19 04:34 Magnesium 1.6 mg/dL (1.8-2.4) L 07/25/19 04:34 Total Bilirubin 0.6 mg/dL (0.2-1.0) 07/21/19 22:08 AST 24 U/L (15-37) 07/21/19 22:08 ALT 33 U/L (12-78) 07/21/19 22:08 Alkaline Phosphatase 175 U/L (45-117) H 07/21/19 22:08 Lipase 312 U/L (73-393) 07/21/19 22:08 Home Medications: Allopurinol [Zyloprim*] 100 mg PO DAILY 06/17/19 Atorvastatin Calcium [Lipitor] 40 mg PO BEDTIME 06/17/19 Famotidine 20 mg PO BID 06/17/19 Finasteride 5 mg PO DAILY 06/17/19 Gabapentin 200 mg PO BEDTIME 06/17/19 Insulin Aspart [Novolog] See Protocol SQ TID 06/17/19 Insulin Glargine Human [Lantus*] 20 units SQ BEDTIME 06/17/19 Metoprolol Succinate [Toprol Xl*] 25 mg PO DAILY 06/17/19 [place]-3S/Dha/Epa/Fish Oil [[place]-3 Fish Oil 1,000 mg Sfgl] 2 g PO BEDTIME Ondansetron [Ondansetron Odt] 8 mg PO Q8H PRN 06/17/19 Prochlorperazine [Compazine*] 5 mg PO Q6H PRN 06/17/19 Simethicone 80 mg PO Q6H PRN 06/17/19 Tamsulosin [Flomax*] 0.4 mg PO DAILY 06/17/19 Tramadol HCl [Ultram] 50 mg PO BID PRN 06/17/19 dexAMETHasone [Decadron*] 4 mg PO DAILY 06/17/19 Magic Mouthwash [Magic Mouthwash*] 15 ml PO QID PRN #1 btl 07/25/19 levoFLOXacin [Levaquin*] 500 mg PO DAILY #7 tab 07/25/19 New Medications: levoFLOXacin [Levaquin*] 500 mg PO DAILY #7 tab Magic Mouthwash [Magic Mouthwash*] 15 ml PO QID PRN #1 btl PRN Reason: Sore Throat Patient Discharge Instructions: Please follow up with your primary care physician in 2-3 days. Please conitnue your follow up with your Oncologist, Dr. Herrera. Return to the ER for worsening symptoms. Diet: Regular Activity: Ad july Followup: Tesha Alonzo MD [ACTIVE - CAN ADMIT] - 2-3 Days Time spent managing pt's care (in minutes): 55
== END 2019-07-25 12:01 | disposition home or self-care (01) | DRG 872 ==
LOC: ER 20:47 → ERHOLD 07-22 → 2ND 07-22 00:51
PROVIDERS: ADMIT Family Medicine; ATTEND Family Medicine
PROC: 30233N1 Transfusion of Nonautologous Red Blood Cells into Peripheral Vein, Percutaneous Approach (ICD-10-PCS; principal; 2019-07-24)
DX: A41.9 Sepsis, unspecified organism (principal); N39.0 Urinary tract infection, site not specified; N17.9 Acute kidney failure, unspecified; C22.1 Intrahepatic bile duct carcinoma; E46 Unspecified protein-calorie malnutrition; B96.1 Klebsiella pneumoniae [K. pneumoniae] as the cause of diseases classified elsewhere; E11.9 Type 2 diabetes mellitus without complications; Z68.23 Body mass index [BMI] 23.0-23.9, adult; D50.9 Iron deficiency anemia, unspecified; E86.0 Dehydration; I10 Essential (primary) hypertension
CPT/HCPCS: 36415; 71045; 80048; 80076; 81001; 81003; 81015; 82043; 82550; 82553; 82570; 82607; 82728; 82962; 83540; 83605; 83690; 83735; 84100; 84132; 84145; 84466; 84484; 84550; 85014; 85018; 85025; 85610; 85730; 86850; 86900; 86901; 87040; 87077; 87086; 87088; 87186; 93005; 93306; 93971; 96365; 99285; J0696; J1642; J1650; J3475; J7030; P9016

== ENCOUNTER 2019-08-06 23:53 | Emergency (ER) | payer BC ==
--- OUTSIDE RECORDS SUMMARY | 2019-08-06 23:58 | XMS REPORT | Clinical Summary ---
:1955 Author Organization [facility] Address [address] [place] [address] Care Team Providers Name Role Phone Tesha [...] a day as needed for moderate pain. loperamide (IMODIUM) Take 1 capsule 150 capsule [...] needed (edema) for up to 30 days. OLANZapine zydis Take 1 tablet [...] Day 1 and Day 2 after chemotherapy. dronabinol (MARINOL) Take 1 capsule 60 capsule 5 Active 2.5 MG capsule (2.5 mg total) 9 019 by mouth 2 (two) times a day before meals for 30 days. ZYRTEC-D 5-120 mg Take 1 tablet 4 Active per 12 hr tablet by mouth 2 9 (two) times a day as needed. atorvastatin Take 40 mg by 3 Active (LIPITOR) 40 MG mouth every 9 tablet evening. NOVOLOG FLEXPEN 0 Active U-100 INSULIN 100 9 unit/mL (3 mL) insulin pen BASAGLAR KWIKPEN INJECT 62 1 Active U-100 INSULIN 100 UNITS UNDER 9 unit/mL (3 mL) THE SKIN injection (pen) DAILY. liraglutide Inject 1.2 mg 0 Discontinued (VICTOZA) [...] Discharge) metoprolol succinate ER 25 mg tab finasteride Take 5 mg by 0 Discontinued (PROSCAR) 5 mg mouth daily. 019 (Stop Taking at tablet Discharge) ondansetron (ZOFRAN) Take 1 tablet 20 tablet Discontinued 8 MG tablet (8 mg total) [...] tablet by mouth daily for 30 days. prochlorperazine Take 1 tablet 30 tablet 4 (COMPAZINE) 5 MG (5 mg total) 9 019 tablet by mouth every 6 (six) hours as needed for nausea or vomiting for up to 30 days. ondansetron (ZOFRAN) Take 1 tablet 20 tablet 4 8 MG tablet (8 mg total) 9 019 by mouth every 8 (eight) hours as needed for nausea or vomiting for up to 30 days. OLANZapine zydis Take 1 tablet 3 tablet 0 Discontinued (ZyPREXA) 5 MG (5 mg total) [...] a day before meals for 30 days. dronabinol (MARINOL) Take 1 capsule 0 Discontinued 2.5 MG capsule (2.5 mg total) 9 019 (Reorder) by mouth 2 (two) times a day before meals for 30 days. levoFLOXacin Take 500 mg by 0 Discontinued (LEVAQUIN) 500 MG mouth daily. 9 019 (Stop Taking at tablet Discharge) Hospital, Clinic, or Other Ordered Dose Route Frequency Start Date End Date Status Facility Administered Medication potassium chloride (K-DUR) 40 mEq oral once 07/16/2019 07/16/2019 Ended CR tablet 40 mEqIndications: Hypokalemia Active Problems Problem Noted Date Syncope 08/01/2019 C. difficile diarrhea 06/21/2019 Cholangiocarcinoma 06/10/2019 BECCA (acute kidney injury) 05/27/2019 Encounters Date Type Specialty Care Team Description 08/01/2019 Hospital Encounter Radiology Obie Herrera, No Show 08/01/2019 - Emergency General Internal Rehrer, Blake Syncope, unspecified syncope type (Primary Dx); 08/02/2019 Medicine DO Vishnu Facial abrasion, initial encounter; James Glez, Closed fracture of nasal bone, initial encounter; Anemia, unspecified type; Thrombocytosis (HCC); Hypokalemia; Renal insufficiency; Dental trauma, initial encounter; Abrasion of right knee, initial encounter 08/01/2019 Refill Oncology Obie Herrera MD 07/31/2019 Orders Only Oncology Malorie, Cholangiocarcinoma (HCC) HENOK Muse (Primary Dx) 07/31/2019 Orders Only Oncology Sukhjinder Cholangiocarcinoma (HCC) LUIS Roman (Primary Dx) 07/30/2019 Office Visit Oncology Obie Herrera Cholangiocarcinoma (HCC) ( Primary Dx); BECCA (acute kidney injury) (HCC) 07/30/2019 Infusion Oncology Obie Herrera Cholangiocarcinoma (HCC) (Primary Dx) 07/30/2019 Telephone Oncology Obie Herrera MD 07/30/2019 Telephone Oncology Obie Herrera MD 07/29/2019 Telephone Oncology Obie Herrera MD 07/28/2019 Orders Only Oncology Malorie Cholangiocarcinoma (HCC) HENOK Muse (Primary Dx) 07/28/2019 Telephone Oncology Obie Herrera MD 07/18/2019 Nurse Only Oncology Obie Herrera Cholangiocarcinoma [...] 07/08/2019 Orders Only Oncology Obie Herrera Cholangiocarcinoma (HCC) 07/08/2019 Orders Only Oncology Obie Herrera MD 07/07/2019 Telephone Oncology Obie Herrera MD 07/04/2019 Documentation Oncology Maryjane Schultz RN 07/03/2019 Orders Only Oncology Briseida Thacker [facility] 06/24/2019 Telephone Oncology Obie Herrera MD 06/21/2019 - Hospital Encounter Oncology Thor, Cholangiocarcinoma (HCC) ( Primary Dx); 07/08/2019 MD Marcela C. difficile diarrhea 06/20/2019 Intake Access N/A 06/20/2019 Telephone Oncology Maryjane Schultz RN 06/19/2019 Telephone Oncology Obie Herrera MD 06/16/2019 Telephone Oncology Obie Herrera Cholangiocarcinoma (HCC) (Primary Dx) 06/12/2019 Orders Only Oncology Obie Herrera MD 06/11/2019 Orders Only Oncology Briseida Thacker [facility] 05/27/2019 - Hospital Encounter Oncology Samani, Cholangiocarcinoma (HCC) ( Primary Dx); 06/15/2019 MD Franki BECCA (acute kidney injury) (HCC) 05/27/2019 Orders Only General Internal Jim, Medicine MD Franki 01/07/2019 Hospital Encounter Radiology Craig, Cough David Ortega MD 01/07/2019 Transcribe Orders Access Moshe Srinivasan (Primary Dx) David Ortega MD after 08/05/2018 Immunizations Name Administration Dates Next Due FLUCELVAX QUAD PF 08/01/2019 Family History Medical History Relation Name Comments [...] Sign Reading Time Taken Comments Blood Pressure 118/61 08/02/2019 3:42 PM CDT Pulse 101 08/02/2019 3:42 PM CDT Temperature 36.2 C (97.2 F) 08/02/2019 3:42 PM CDT Respiratory Rate 16 08/02/2019 3:42 PM CDT Oxygen Saturation 97% 08/02/2019 3:42 PM CDT Inhaled Oxygen Concentration - - Weight 78.5 kg (173 lb) 08/01/2019 11:15 AM CDT Height 177.8 cm (5' 10") 08/01/2019 11:15 AM CDT Body Mass Index 24.82 08/01/2019 11:15 AM CDT Plan of Treatment Date Type Specialty Care Team Description 08/08/2019 Appointment Radiology Obie Herrera MD [address] [place] [address] [phone] 08/13/2019 Infusion Oncology Obie Herrera MD [address] [place] [address] [phone] 08/13/2019 Office Visit Oncology Obie Herrera MD [address] [place] [address] [phone] 08/15/2019 Nurse Only Oncology Obie Herrera MD [address] [place] [address] [phone] 08/27/2019 Infusion Oncology Obie Herrera MD [address] [place] [address] [phone] 08/29/2019 Nurse Only Oncology Obie Herrera MD [address] [place] [address] [phone] Health Maintenance Due Date Last Done Comments COLONOSCOPY SCREENING 2005 SHINGLES VACCINES (#1) 2005 INFLUENZA VACCINE Completed 08/01/2019, 10/18/2018 Implants Implanted Type Area [employer] Pumping [employer] 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 ALBUMIN, MISC FLUID Routine 08/02/2019 Results for 3:30 PM CDT this procedure are in the results section. PROTEIN, MISC FLUID Routine 08/02/2019 Results for 3:30 PM CDT this procedure are in the results section. CELL COUNT AND Routine 08/02/2019 Results for DIFFERENTIAL, BODY 3:30 PM CDT this procedure FLUID are in the results section. GLUCOSE LEVEL, MISC Routine 08/02/2019 Results for FLUID 3:30 PM CDT this procedure are in the results section. US CAROTID DUPLEX Routine 08/02/2019 Results for BILATERAL 1:44 PM CDT this procedure are in the results section. POC GLUCOSE Routine 08/02/2019 Results for 9:15 AM CDT this procedure are in the results section. ECHOCARDIOGRAM 2D Routine 08/02/2019 Results for COMPLETE W MMODE 8:10 AM CDT this procedure SPECTRAL COLOR DOPPLER are in the (67427) results section. MANUAL DIFFERENTIAL Routine 08/02/2019 Results for 6:45 AM CDT this procedure are in the results section. ESTIMATED GFR Routine 08/02/2019 Results for 6:45 AM CDT this procedure are in the results section. THYROID STIMULATING Routine 08/02/2019 Results for HORMONE 6:45 AM CDT this procedure are in the results section. T4, FREE Routine 08/02/2019 Results for 6:45 AM CDT this procedure are in the results section. PROTHROMBIN TIME WITH Routine 08/02/2019 Results for INR 6:45 AM CDT this procedure are in the results section. HEMOGLOBIN A1C Routine 08/02/2019 Results for 6:45 AM CDT this procedure are in the results section. CBC WITH PLATELET AND Routine 08/02/2019 Results for DIFFERENTIAL 6:45 AM CDT this procedure are in the results section. BASIC METABOLIC PANEL Routine 08/02/2019 Results for 6:45 AM CDT this procedure are in the results section. POC GLUCOSE Routine 08/01/2019 Results for 9:42 PM CDT this procedure are in the results section. ECG 12-LEAD STAT 08/01/2019 Results for 7:15 PM CDT this procedure are in the results section. XR CHEST 1 VW PORTABLE STAT 08/01/2019 Results for 5:26 PM CDT this procedure are in the results section. CT CERVICAL SPINE WO STAT 08/01/2019 Results for CONTRAST 4:17 PM CDT this procedure are in the results section. XR KNEE 1 OR 2 VW STAT 08/01/2019 Results for RIGHT 3:18 PM CDT this procedure are in the results section. MANUAL DIFFERENTIAL STAT 08/01/2019 Results for 1:24 PM CDT this procedure are in the results section. ESTIMATED GFR STAT 08/01/2019 Results for 1:24 PM CDT this procedure are in the results section. COMPREHENSIVE STAT 08/01/2019 Results for METABOLIC PANEL 1:24 PM CDT this procedure are in the results section. B NATRIURETIC PEPTIDE STAT 08/01/2019 Results for 1:24 PM CDT this procedure are in the results section. TROPONIN STAT 08/01/2019 Results for 1:24 PM CDT this procedure are in the results section. LACTIC ACID LEVEL STAT 08/01/2019 Results for 1:24 PM CDT this procedure are in the results section. MAGNESIUM LEVEL STAT 08/01/2019 Results for 1:24 PM CDT this procedure are in the results section. PHOSPHORUS LEVEL STAT 08/01/2019 Results for 1:24 PM CDT this procedure are in the results section. PARTIAL THROMBOPLASTIN STAT 08/01/2019 Results for TIME (PTT) 1:24 PM CDT this procedure are in the results section. PROTHROMBIN TIME WITH STAT 08/01/2019 Results for INR 1:24 PM CDT this procedure are in the results section. CBC WITH PLATELET AND STAT 08/01/2019 Results for DIFFERENTIAL 1:24 PM CDT this procedure are in the results section. CT MAXILLOFACIAL WO STAT 08/01/2019 Results for CONTRAST 12:14 PM CDT this procedure are in the results section. CT HEAD WO CONTRAST STAT 08/01/2019 Results for 12:14 PM CDT this procedure are in the results section. ECG 12-LEAD STAT 08/01/2019 Results for 11:26 AM CDT this procedure are in the results section. URINALYSIS SCREEN AND STAT 07/30/2019 Cholangiocarcinoma (HCC) Results for MICROSCOPY, WITH 1:16 PM CDT this procedure REFLEX TO CULTURE are in the results section. GRAM STAIN Routine 07/30/2019 Results for 1:15 PM CDT this procedure are in the results section. URINE CULTURE Routine 07/30/2019 Results for 1:15 PM CDT this procedure are in the results section. PARTIAL THROMBOPLASTIN STAT 07/30/2019 Cholangiocarcinoma (HCC) Results for TIME (PTT) 8:28 AM CDT this procedure are in the results section. PROTHROMBIN TIME WITH STAT 07/30/2019 Cholangiocarcinoma (HCC) Results for INR 8:28 AM CDT this procedure are in the results section. MAGNESIUM LEVEL STAT 07/30/2019 Results for 8:15 AM CDT this procedure are in the results section. MANUAL DIFFERENTIAL STAT 07/30/2019 Results for 8:15 AM CDT this procedure are in the results section. ESTIMATED GFR STAT 07/30/2019 Results for 8:15 AM CDT this procedure are in the results section. COMPREHENSIVE STAT 07/30/2019 Cholangiocarcinoma (HCC) Results for METABOLIC PANEL 8:15 AM CDT this procedure are in the results section. CBC WITH PLATELET AND STAT 07/30/2019 Cholangiocarcinoma (HCC) Results for DIFFERENTIAL 8:15 AM CDT this procedure are in the results section. CANCER ANTIGEN 19-9 STAT 07/30/2019 Cholangiocarcinoma (HCC) Results for 8:15 AM CDT this procedure are in the results section. URINALYSIS, AUTOMATED STAT 07/30/2019 Cholangiocarcinoma (HCC) Results for WITH MICROSCOPY 7:55 AM CDT this procedure are in the results section. US ABDOMINAL Routine 07/18/2019 Cholangiocarcinoma (HCC) Results [...] procedure SPECTRAL COLOR DOPPLER are in the (11382) results section. LACTIC ACID LEVEL, Timed 05/30/2019 [...] Routine 01/07/2019 Cough Results for 4:52 PM LAWYER this procedure are in the results section. after 08/05/2018 Results US Abdominal Paracentesis Imaging (08/02/2019 4:10 PM CDT)Only the most recent of7 resultswithin the time period is included. Specimen Narrative Performed At EXAMINATION:US ABDOMINAL PARACENTESIS IMAGING RADIANT CLINICAL HISTORY: [facility] TECHNIQUE: The procedure's risks, benefits, and alternatives were discussed with the patient and written, informed consent was obtained. Using ultrasound guidance, a site for needle entry was selected and the overlying skin was prepped and draped in the usual sterile fashion. 1% buffered lidocaine was used for local anesthesia. A 5 [place] Islander one-step catheter was inserted into the peritoneal cavity and 2.9 L of peritoneal fluid was removed. The fluid was sent to the lab for the requested studies.The patient tolerated the procedure without difficulty and was discharged to the radiology recovery area for monitoring prior to discharge. EBL: None. COMPLICATIONS: None. SPECIMENS: As above. ASSISTANTS: None. IMPRESSION: Uncomplicated ultrasound-guided diagnostic and therapeutic paracentesis. [facility]-[id number] Procedure Note Hm Interface, Radiology Results Incoming - 08/02/2019 6:18 PM CDT EXAMINATION: US ABDOMINAL PARACENTESIS IMAGING CLINICAL HISTORY: ASCITES TECHNIQUE: The procedure's risks, benefits, and alternatives were discussed with the patient and written, informed consent was obtained. Using ultrasound guidance, a site for needle entry was selected and the overlying skin was prepped and draped in the usual sterile fashion. 1% buffered lidocaine was used for local anesthesia. A 5 [place] Islander one-step catheter was inserted into the peritoneal cavity and 2.9 L of peritoneal fluid was removed. The fluid was sent to the lab for the requested studies. The patient tolerated the procedure without difficulty and was discharged to the radiology recovery area for monitoring prior to discharge. EBL: None. COMPLICATIONS: None. SPECIMENS: As above. ASSISTANTS: None. IMPRESSION: Uncomplicated ultrasound-guided diagnostic and therapeutic paracentesis. [facility]-[id number] Performing Organization Address City/[facility]/Zipcode Phone Number [facility] [address] [place] [address] Cell count and differential, body fluid (08/02/2019 3:30 PM CDT)Only the most recent of2 resultswithin the time period is included. [facility] fluid type Ascitic [facility] Color, fluid Pale yellow [facility] Appearance, fluid Hazy [facility] RBC, fluid SEE /CMM [facility] COMMENTComment: [facility] 2+ (500 - 10,000 RBC/CMM) Nucleated cells, 163 /CMM [facility] Fluid mononuclear See Diff [facility] Neutrophils, fluid 2 % [facility] Lymphocytes, fluid 79 % [facility] Mesothelial cells, 4 % [facility] Macrophages, fluid 11 % [facility] Plasma cells, fluid 4 % [facility] Specimen Fluid Narrative Performed At [facility] DEPARTMENT OF PATHOLOGY AND GENOMIC MEDICINE Performing Organization Address City/[facility]/Zipcode Phone Number [facility] DEPARTMENT OF PATHOLOGY AND [address] [place] [address] GENOMIC MEDICINE [facility] [address] [place] [address] Protein, misc fluid (08/02/2019 3:30 PM CDT) Fluid type Ascitic [facility] Protein, fluid 2.2 g/dL [facility] Comment: HOSPITAL The reference interval(s) and other method performance specifications have not been established for this body fluid. The test results must be integrated into the clinical context for interpretation. Specimen Fluid Narrative Performed At [facility] DEPARTMENT OF PATHOLOGY AND [facility] MEDICINE Performing Organization Address City/State/Zipcode Phone Number [facility] DEPARTMENT OF PATHOLOGY AND [address] [place] [address] Glucose level, misc fluid (08/02/2019 3:30 PM CDT) [facility] Fluid type [facility] Glucose, fluid 94 mg/dL [facility] Comment: [facility] The reference interval(s) and other method performance specifications have not been established for this body fluid. The test results must be integrated into the clinical context for interpretation. Specimen Fluid Narrative Performed At [facility] DEPARTMENT OF PATHOLOGY AND [facility] Performing Organization Address City/[facility] Facilitycode Phone Number [facility] DEPARTMENT OF PATHOLOGY AND [address] [place] [address] Albumin, misc fluid (08/02/2019 3:30 PM CDT) [facility] Fluid type [facility] Albumin, fluid 1.3 g/dL [facility] Comment: [facility] The reference interval(s) and other method performance specifications have not been established for this body fluid. The test results must be integrated into the clinical context for interpretation. Specimen Fluid Narrative Performed At [facility] DEPARTMENT OF PATHOLOGY AND GENOMIC MEDICINE Performing Organization Address City/[facility] Facilitycode Phone Number [facility] DEPARTMENT OF PATHOLOGY AND [address] [place] [address] Us carotid duplex (08/02/2019 1:44 PM CDT) Specimen Narrative Performed At [facility] Vascular Ultrasound Laboratory Carotid Artery Duplex Report [id number] [facility], [facility] [address], [place] [address] For senior quality analyst purposes, the categorization of the degree of the stenosis of this exam is based on criteria described in the IAC carotid stenosis grading white paper( www.intersocietal.org/Vascular) and Phylicia Salinas., Kameron Esparza., et al. Carotid artery stenosis: mckeon-scale and Doppler US diagnosis--Society of Radiologists in Ultrasound Consensus Conference. Radiology. 2003 Nov; 229(2):340-6. Pat.Name:CLARICE MEJIA Pat.ID:[id number] .Date: 08/02/2019 Refer.MD:JAMES GLEZ MD Exam Time: 1:12:00 PMStudy Type:Carotid Height:70inWeight: 173lb BSA: 1.96 m2 DOBAge:1955,64Y Sex: MALESonogrphr: Juan Ireland, ANNMARIE, RDMS Pat. Stat.:Inpatient Room:[address] TapeVol: , CPT - 4: 23456 Echo Event ID:[id number] Order ID:[id number] Reason for Study:Syncope. PMH of DM2, HTN, HLD, bile duct cancer. Procedures:Colorflow, Grayscale/2D, Pulsed wave Doppler Race:O SUMMARY: PHYSICAL ASSESSMENT BloodPulsesCarotid Pressure Carotid TemporalBruit Right 107/63 ++0 Left ___ ++0 CAROTID ARTERY SCAN RIGHT: There is focal hard plaque in the common carotid artery. There is hard and calcified plaque noted in the bulb extending into the proximal internal carotid artery.The external carotid artery is clear. Colorflow is normal. LEFT: There is focal hard plaque in the common carotid artery. There is hard and calcified plaque noted in the bulb extending into the proximal internal carotid artery.The external carotid artery is clear. Colorflow is normal. PRELIMINARY FINDINGS 1. Non-stenotic plaque in the common carotid artery,bilaterally. 2. <50%stenosis in the bulb,and internal carotid artery. 3. Antegrade vertebral artery flow, bilaterally. PHYSICIAN INTERPRETATION Bilateral carotid duplex examination demonstrated atherosclerotic plaques in the bulbs. Less than 50% stenosis in the bulb and internal carotid artery, bilaterally. Both vertebral arteries are antegrade. Carotid Findings:RightLeft Verteb.Flw AntegradeAntegrade Subclavian TriphasicTriphasic MEASUREMENTS: DOPPLER Right CCA Dist CCA Dist PSV60.1 cm/sCCA Dist EDV19.1 cm/s Right CCA Mid CCA Mid PSV 82 cm/sCCA Mid EDV 20.7 cm/s Right CCA Prox CCA Prox PSV 114 cm/sCCA Prox EDV17.7 cm/s Right ECA Prox ECA Prox PSV68 cm/sECA Prox EDV8.64 cm/s Right ICA Dist ICA Dist PSV 101 cm/Adelfo Dist EDV28.3 cm/s Right ICA Mid ICA Mid PSV 81.2 cm/Adelfo Mid EDV 23 cm/s Right ICA Prox ICA Prox PSV63.6 cm/Adelfo Prox EDV23 cm/s Right Vertebral Vertebral PSV 68 cm/sVertebral EDV 17.5 cm/s Right Subclavian Subclavian PSV 102 cm/sSubclavian EDV 0 cm/s Left CCA Dist CCA Dist PSV56.6 cm/sCCA Dist EDV15.6 cm/s Left CCA Mid CCA Mid PSV 73.6 cm/sCCA Mid EDV 19.3 cm/s Left CCA Prox CCA Prox PSV 116 cm/sCCA Prox EDV19.5 cm/s Left ECA Prox ECA Prox PSV76.2 cm/sECA Prox EDV6.34 cm/s Left ICA Dist ICA Dist PSV 110 cm/Adelfo Dist EDV33.5 cm/s Left ICA Mid ICA Mid PSV 94.3 cm/Adelfo Mid EDV 30.9 cm/s Left ICA Prox ICA Prox PSV78.8 cm/Adelfo Prox EDV24.5 cm/s Left Vertebral Vertebral PSV 50.5 cm/sVertebral EDV 13.9 cm/s Left Subclavian Subclavian PSV 103 cm/sSubclavian EDV 0 cm/s Right ICA/CCA Ratio ICA/CCA PSV0.776 Left ICA/CCA Ratio ICA/CCA PSV 1.07 Signed 08/02/2019 01:59 PM Neo rBowne MD, RPVI Procedure Note Interface, Radiology Results In - 08/02/2019 2:00 PM CDT Vascular Ultrasound Laboratory Carotid Artery Duplex Report [id number] [facility], [facility] [address], [place] [address] For senior quality analyst purposes, the categorization of the degree of the stenosis of this exam is based on criteria described in the IAC carotid stenosis grading white paper( www.intersocietal.org/Vascular) and Phylicia Salinas., Kameron Esparza., et al. Carotid artery stenosis: mckeon-scale and Doppler US diagnosis--Society of Radiologists in Ultrasound Consensus Conference. Radiology. 2003 Nov; 229(2):340-6. Pat.Name: CLARICE MEJIA Pat.ID: [id number] St.Date: 08/02/2019 Refer.MD: JAMES GLEZ MD Exam Time: 1:12:00 PM Study Type:Carotid Height: 70in Weight: 173lb BSA: 1.96 m2 Age: 3 1955,64Y Sex: MALE Sonogrphr: Juna Ireland RVT, BESSY Pat. Stat.:Inpatient Room: [address] Vol: MK, CPT - 4: 42997 Echo Event ID:[id number] Order ID: [id number] Reason for Study:Syncope. PMH of DM2, HTN, HLD, bile duct cancer. Procedures:Colorflow, Grayscale/2D, Pulsed wave Doppler Race: O SUMMARY: PHYSICAL ASSESSMENT Blood Pulses Carotid Pressure Carotid Temporal Bruit Right 107/63 + + 0 Left ___ + + 0 CAROTID ARTERY SCAN RIGHT: There is focal hard plaque in the common carotid artery. There is hard and calcified plaque noted in the bulb extending into the proximal internal carotid artery.The external carotid artery is clear. Colorflow is normal. LEFT: There is focal hard plaque in the common carotid artery. There is hard and calcified plaque noted in the bulb extending into the proximal internal carotid artery.The external carotid artery is clear. Colorflow is normal. PRELIMINARY FINDINGS 1. Non-stenotic plaque in the common carotid artery, bilaterally. 2. <50% stenosis in the bulb, and internal carotid artery. 3. Antegrade vertebral artery flow, bilaterally. PHYSICIAN INTERPRETATION Bilateral carotid duplex examination demonstrated atherosclerotic plaques in the bulbs. Less than 50% stenosis in the bulb and internal carotid artery, bilaterally. Both vertebral arteries are antegrade. Carotid Findings: Right Left Verteb.Flw Antegrade Antegrade Subclavian Triphasic Triphasic MEASUREMENTS: DOPPLER Right CCA Dist CCA Dist PSV 60.1 cm/s CCA Dist EDV 19.1 cm/s Right CCA Mid CCA Mid PSV 82 cm/s CCA Mid EDV 20.7 cm/s Right CCA Prox CCA Prox PSV 114 cm/s CCA Prox EDV 17.7 cm/s Right ECA Prox ECA Prox PSV 68 cm/s ECA Prox EDV 8.64 cm/s Right ICA Dist ICA Dist PSV 101 cm/s ICA Dist EDV 28.3 cm/s Right ICA Mid ICA Mid PSV 81.2 cm/s ICA Mid EDV 23 cm/s Right ICA Prox ICA Prox PSV 63.6 cm/s ICA Prox EDV 23 cm/s Right Vertebral Vertebral PSV 68 cm/s Vertebral EDV 17.5 cm/s Right Subclavian Subclavian PSV 102 cm/s Subclavian EDV 0 cm/s Left CCA Dist CCA Dist PSV 56.6 cm/s CCA Dist EDV 15.6 cm/s Left CCA Mid CCA Mid PSV 73.6 cm/s CCA Mid EDV 19.3 cm/s Left CCA Prox CCA Prox PSV 116 cm/s CCA Prox EDV 19.5 cm/s Left ECA Prox ECA Prox PSV 76.2 cm/s ECA Prox EDV 6.34 cm/s Left ICA Dist ICA Dist PSV 110 cm/s ICA Dist EDV 33.5 cm/s Left ICA Mid ICA Mid PSV 94.3 cm/s ICA Mid EDV 30.9 cm/s Left ICA Prox ICA Prox PSV 78.8 cm/s ICA Prox EDV 24.5 cm/s Left Vertebral Vertebral PSV 50.5 cm/s Vertebral EDV 13.9 cm/s Left Subclavian Subclavian PSV 103 cm/s Subclavian EDV 0 cm/s Right ICA/CCA Ratio ICA/CCA PSV 0.776 Left ICA/CCA Ratio ICA/CCA PSV 1.07 Signed 08/02/2019 01:59 PM Neo Browne MD, RPVI Performing Organization Address [facility] Phone Number [facility] [address] [place] [address] POC glucose (08/02/2019 9:15 AM CDT)Only the most recent of159 resultswithin the time period is included. POC glucose 120 (H) 65 - 99 mg/dL [facility] Comment: [facility] Notified RN Meter ID: [id number] Plumber Maintenance: Andre Lebron Specimen Performing Organization Address [facility] Phone Number [facility] DEPARTMENT OF PATHOLOGY AND [address] [place] [address] [place] [address] Echocardiogram complete w contrast and 3D if needed (08/02/2019 8:10 AM CDT) Specimen Narrative Performed At [facility] Echocardiography Report [address] [place] [address] Pat.Name:CLARICE MEJIA.ID:[id number] .Date: 08/02/2019 Refer.MD:JAMES GLEZ MD Exam Time: 7:36:00 AMStudy Type:Routine Echo Height:70inWeight: 173lb BSA: 1.96 m2 DOBAge:1955,64Y Sex: MALEBP:111/61 HR:95 bpm Sonogrphr: DOMENICA Hallman Pat. Stat.:Inpatient Room:[facility] Study Status:Final Echo Event ID:[id number] Order ID:[id number] Reason for Study:Lightheadedness/ Presyncope/Syncope - Syncope when there are no other symptoms or signs of cardiovascular disease History / Clinical:Cancer, Diabetes, Hypertension, Syncope, CKD, Hypercholesteremia Procedures:2D Echo, Colorflow Doppler, Strain Race:O SUMMARY: LV size is normal. Estimated EF is 60-64%. LV relaxation is normal. Hepatic vein pressure is normal, RA pressure < 5mmHg. FINDINGS: LV: LV size is normal. LV EF is normal. Overall wall motion is normal(GLPS -20.6%). Estimated EF is 60-64%. RV: RV size is normal. RV systolic function is normal. LA: LA size is normal. RA: RA size is normal. AO: Aortic root diameter is normal. LAUREN: No pericardial effusion. PLE:Pleural effusion is present. AV: Focal calcification of AV leaflets. MV: No structural MV abnormalities noted. Mild mitral regurgitation. PV: Pulmonic valve not well seen. TV: No structural TV abnormalities noted. A trace of tricuspid regurgitation [place]: LV relaxation is normal. LV filling pressure is normal. Hepaticvein pressure is normal, RA pressure < 5mmHg. Other:Insufficient TR jet to estimate PA systolic pressure. MEASUREMENTS: 2D Parasternal [place] LVOT 2.2 cmLA Ds3.6 cm LVIDd4.1 cmIndex2.1 cm/m Ao An2.3 cm LVIDs2.7 cmAo Rtd 3.7 cm Index1.9 cm/m LV%fs 34.1 % LV Mass 97.3 g(122-174) IVSd 0.9 cmLVM Index 49.6 g/m2 LVPWd0.7 cmRWT0.3 LA Sng Plane LA Area 19.1 cm2(8.8-23.4) LA Vol56.9 ml Index29 ml/m LA LngAx 4.7 cm DOPPLER LVOT Stroke Vol LVOT 2.1 cmLVOT CO6 l/min LVOT TVI18.5 cmLVOT CI3.1 l/m/m2 LVOT Tm247 iskmMT57 bpm LVOT SV 64.1 ml Signed 08/02/2019 09:48 AM Meli Arambula M.D. Procedure Note Interface, Radiology Results In - 08/02/2019 9:49 AM CDT Echocardiography Report [address] [address], [place] [address] Pat.Name: CLARICE MEJIA.ID: [id number] St.Date: 08/02/2019 Refer.MD: JAMES GLEZ MD Exam Time: 7:36:00 AM Study Type:Routine Echo Height: 70in Weight: 173lb BSA: 1.96 m2 Age: 3 1955,64Y Sex: MALE BP: 111/61 HR: 95 bpm Sonogrphr: DOMENICA Hallman Pat. Stat.:Inpatient Room: [facility] Study Status:Final Echo Event ID:[id number] Order ID: [id number] Reason for Study:Lightheadedness/ Presyncope/Syncope - Syncope when there are no other symptoms or signs of cardiovascular disease History / Clinical:Cancer, Diabetes, Hypertension, Syncope, CKD, Hypercholesteremia Procedures:2D Echo, Colorflow Doppler, Strain Race: O SUMMARY: LV size is normal. Estimated EF is 60-64%. LV relaxation is normal. Hepatic vein pressure is normal, RA pressure < 5mmHg. FINDINGS: LV: LV size is normal. LV EF is normal. Overall wall motion is normal (GLPS -20.6%). Estimated EF is 60-64%. RV: RV size is normal. RV systolic function is normal. LA: LA size is normal. RA: RA size is normal. AO: Aortic root diameter is normal. LAUREN: No pericardial effusion. PLE: Pleural effusion is present. AV: Focal calcification of AV leaflets. MV: No structural MV abnormalities noted. Mild mitral regurgitation. PV: Pulmonic valve not well seen. TV: No structural TV abnormalities noted. A trace of tricuspid regurgitation [place]: LV relaxation is normal. LV filling pressure is normal. Hepatic vein pressure is normal, RA pressure < 5mmHg. Other: Insufficient TR jet to estimate PA systolic pressure. MEASUREMENTS: 2D Parasternal [place] LVOT 2.2 cm LA Ds 3.6 cm LVIDd 4.1 cm Index 2.1 cm/m Ao An 2.3 cm LVIDs 2.7 cm Ao Rtd 3.7 cm Index 1.9 cm/m LV%fs 34.1 % LV Mass 97.3 g (122-174) IVSd 0.9 cm LVM Index 49.6 g/m2 LVPWd 0.7 cm RWT 0.3 LA Sng Plane LA Area 19.1 cm2 (8.8-23.4) LA Vol 56.9 ml Index 29 ml/m LA LngAx 4.7 cm DOPPLER LVOT Stroke Vol LVOT 2.1 cm LVOT CO 6 l/min LVOT TVI 18.5 cm LVOT CI 3.1 l/m/m2 LVOT Tm 247 msec HR 93 bpm LVOT SV 64.1 ml Signed 08/02/2019 09:48 AM Meli Arambula M.D. Performing Organization Address City/State/Zipcode Phone Number [facility] [address] [place] [address] Estimated GFR (08/02/2019 6:45 AM CDT)Only the most recent of43 resultswithin the time period is included. Pathologist [facility] Estimated GFR 74 mL/min/1.73 [facility] Comment: m2 HOSPITAL CatergoryUnitsInterpretation G1 >=90 Normal or high G2 60-89Mildly decreased [id number] to moderately decreased [id number] to severely decreased G4 15-29Severely decreased G5 <15Kidney failure The eGFR was calculated using the Chronic Kidney Disease Epidemiology Collaboration (CKD-EPI) equation. Interpretation is based on recommendations of the National Kidney Foundation-Kidney Disease Outcomes Quality Initiative (NKF-KDOQI) published in 2014. Specimen Plasma specimen Performing Organization Address City/[facility] Phone Number [facility] DEPARTMENT OF PATHOLOGY AND [address] [place] [address] Manual differential (08/02/2019 6:45 AM CDT)Only the most recent of20 resultswithin the time period is included. Pathologist [facility] Manual differential PERFORMED [facility] Neutrophils 94.0 (H) 39.0 - 69.0 % [facility] Lymphocytes 6.0 (L) 25.0 - 45.0 % [facility] Monocytes 0.0 0.0 - 10.0 % [facility] Eosinophils 0.0 0.0 - 5.0 % [facility] Basophils 0.0 0.0 - 1.0 % [facility] Metamyelocytes 0 % [facility] Promyelocytes 0 % [facility] Platelet slide review Kelly adequate [facility] Anisocytosis Moderate [facility] Ovalocytes Moderate [facility] Lela cells Moderate (A) [facility] Specimen Performing Organization Address City/[facility]/Zipcode Phone Number [facility] DEPARTMENT OF PATHOLOGY AND [address] [place] [address] Prothrombin time with INR (08/02/2019 6:45 AM CDT)Only the most recent of6 resultswithin the time period is included. Pathologist [facility] Prothrombin time 12.9 11.5 - 14.5 [facility] INR 1.0 [place] Comment: [facility] Normalized Ratio (INR) is a therapeutic HOSPITAL monitoring tool for patients who are stable on oral anticoagulant therapy. An INR of 2.0-3.0 is suggested for deep vein thrombosis/pulmonary embolism. Specimen Blood Performing Organization Address City/State/Zipcode Phone Number [facility] DEPARTMENT OF PATHOLOGY AND [address] [place] [address] [address] CBC with platelet and differential (08/02/2019 6:45 AM CDT)Only the most recent of39 resultswithin the time period is included. WBC 10.68 4.50 - 11.00 k/uL [facility] RBC 3.29 (L) 4.40 - 6.00 m/uL [facility] HGB 8.8 (L) 14.0 - 18.0 g/dL [facility] HCT 28.5 (L) 41.0 - 51.0 % [facility] MCV 86.6 82.0 - 100.0 fL [facility] MCH 26.7 (L) 27.0 - 34.0 pg [facility] MCHC 30.9 (L) 31.0 - 37.0 g/dL [facility] RDW - SD 71.8 (H) 37.0 - 55.0 fL [facility] MPV 9.1 8.8 - 13.2 fL [facility] Platelet count 345 150 - 400 k/uL [facility] Nucleated RBC 0.00 /100 WBC [facility] Neutrophils 94.0 (H) 39.0 - 69.0 % [facility] Lymphocytes 6.0 (L) 25.0 - 45.0 % [facility] Monocytes 0.0 0.0 - 10.0 % [facility] Eosinophils 0.0 0.0 - 5.0 % [facility] Basophils 0.0 0.0 - 1.0 % [facility] Specimen Blood Performing Organization Address City/State/Zipcode Phone Number [facility] DEPARTMENT OF PATHOLOGY AND [address] [place] [address] [address] Thyroid stimulating hormone (08/02/2019 6:45 AM CDT)Only the most recent of2 resultswithin the time period is included. TSH 2.82 0.27 - 4.20 uIU/mL [facility] Specimen Plasma specimen Performing Organization Address City/[facility] Phone Number [facility] DEPARTMENT OF PATHOLOGY AND [address] [place] [address] T4, free (08/02/2019 6:45 AM CDT)Only the most recent of2 resultswithin the time period is included. T4, free 1.2 0.9 - 1.7 ng/dL [facility] Specimen Plasma specimen Performing Organization Address City/[facility] Phone Number [facility] DEPARTMENT OF PATHOLOGY AND [address] [place] [address] Hemoglobin A1c (08/02/2019 6:45 AM CDT)Only the most recent of2 resultswithin the time period is included. Pathologist [facility] Hemoglobin A1C 7.0 (H) 4.0 - 5.6 % [facility] Comment: HOSPITAL HbA1c cutoffs for diagnosing diabetes: 4.0% - 5.6%=normal 5.7% - 6.4%=increased risk for diabetes (prediabetes) >=6.5%=diabetes Goals for glycemic control (ADA 2016) < 7.0%Target for non adults with diabetes. More or less stringent targets may be appropriate for individual patients. <7.5% Target for Children and adolescents with type 1 diabetes. Specimen Blood Performing Organization Address City/[facility] Phone Number [facility] DEPARTMENT OF PATHOLOGY AND [address] [place] [address] Basic metabolic panel (08/02/2019 6:45 AM CDT)Only the most recent of30 resultswithin the time period is included. Pathologist [facility] Sodium 146 135 - 148 mEq/L [facility] Potassium 3.2 (L) 3.5 - 5.0 mEq/L [facility] Chloride 113 (H) 98 - 112 mEq/L [facility] CO2 20 (L) 24 - 31 mEq/L [facility] Anion gap 13@ANIO 7 - 15 mEq/L [facility] BUN 18 8 - 23 mg/dL [facility] Creatinine 1.05 0.70 - 1.20 mg/dL [facility] Glucose 113 (H) 65 - 99 mg/dL [facility] Calcium 7.9 (L) 8.8 - 10.2 mg/dL [facility] Specimen Plasma specimen Performing Organization Address City/[facility]/Zipcode Phone Number [facility] DEPARTMENT OF PATHOLOGY AND [address] [place] [address] GENOMIC MEDICINE [facility] [address] [place] [address] ECG 12 lead (08/01/2019 7:15 PM CDT)Only the most recent of3 resultswithin the time period is included. Ventricular rate 106 [facility] Atrial rate 106 [facility] MUSE RI interval 160 [facility] MUSE QRSD interval 70 [facility] QT interval 292 [facility] QTC interval 387 [facility] P axis 1 56 [facility] QRS axis 1 51 [facility] MUSE T wave axis 121 [facility] MUSE EKG impression Sinus tachycardia-T wave abnormality, consider inferior ischemia-Abnormal ECG-In automated comparison with ECG of 01-AUG-2019 11:26,-T wave inversion now evident in Inferior leads-Nonspecific T wave abn [facility] MUSE ormality now evident in Anterolateral leads-QT has shortened- Specimen Narrative Performed At Performing Organization Address [facility] Phone Number [facility] MUSE [address] [place] [address] XR Chest 1 Vw Portable (08/01/2019 5:26 PM CDT)Only the most recent of2 resultswithin the time period is included. Specimen Narrative Performed At XR CHEST 1 VW PORTABLE [facility] CLINICAL INDICATION:SOB COMPARISON:05/30/2019 IMPRESSION: Heart and mediastinal contours are within normal limits and without change. A right infusion catheter is present with its tip projecting over the SVC as before. There is vague opacity involving the medial right lung base probably atelectasis. No pneumothorax or significant effusion is identified. Bones are unremarkable. *[id number] Procedure Note Interface, Radiology Results Incoming - 08/01/2019 5:33 PM CDT XR CHEST 1 VW PORTABLE CLINICAL INDICATION: SOB COMPARISON: 05/30/2019 IMPRESSION: Heart and mediastinal contours are within normal limits and without change. A right infusion catheter is present with its tip projecting over the SVC as before. There is vague opacity involving the medial right lung base probably atelectasis. No pneumothorax or significant effusion is identified. Bones are unremarkable. *[id number] Performing Organization Address City/State/Zipcode Phone Number [facility] [address] [place] [address] CT Cervical Spine Wo Contrast (08/01/2019 4:17 PM CDT) Specimen Narrative Performed At EXAMINATION: CT CERVICAL SPINE WO CONTRAST [facility] CLINICAL HISTORY: neck pain s p hyperextension injury COMPARISON:None TECHNIQUE: Axial noncontrast enhanced images of the cervical spine were obtained with coronal and sagittal reconstructed algorithms. CT imaging was performed with iterative reconstruction technique and/or automated exposure control to reduce radiation dose. FINDINGS: No fracture identified. Craniocervical junction is intact. There is straightening of the cervical lordosis with reversal at C5-6. No suspicious osseous lesion. The thyroid gland is heterogeneous and slightly enlarged suggestive of a goiter. There is a partially visualized moderate pleural effusion in the right lung and some apical pleural scarring and a calcified granuloma in the right lung apex. Axial images through the disc spaces demonstrate the following: C1-C2: There is narrowing of the atlantoaxial interval with spurring. There is no significant stenosis. C2-C3: There is a posterior central disc protrusion with mild to moderate canal narrowing. The foramina are patent. C3-C4: There is a posterior central disc protrusion with at least mild to moderate canal narrowing. The foramina are patent. C4-C5: Uncovertebral arthrosis and facet disease is present without significant foraminal narrowing. The canal is minimally narrowed. C5-C6: There is posterior disc osteophyte complex changes with [id number] canal narrowing. Uncovertebral arthrosis and facet disease results in moderate severe left foraminal narrowing. C6-C7: There is minimal bilateral foraminal narrowing and minimal canal narrowing. C7-T1: No significant posterior disc disease, spinal canal or neural foraminal stenosis. IMPRESSION: There is spondylosis as detailed above without acute osseous abnormality. Note is made of a partially imaged moderate size right pleural effusion. Recommend chest x-ray imaging. [facility]-[id number] Procedure Note Hm Interface, Radiology Results Incoming - 08/01/2019 4:29 PM CDT EXAMINATION: CT CERVICAL SPINE WO CONTRAST CLINICAL HISTORY: neck pain s p hyperextension injury COMPARISON: None TECHNIQUE: Axial noncontrast enhanced images of the cervical spine were obtained with coronal and sagittal reconstructed algorithms. CT imaging was performed with iterative reconstruction technique and/or automated exposure control to reduce radiation dose. FINDINGS: No fracture identified. Craniocervical junction is intact. There is straightening of the cervical lordosis with reversal at C5-6. No suspicious osseous lesion. The thyroid gland is heterogeneous and slightly enlarged suggestive of a goiter. There is a partially visualized moderate pleural effusion in the right lung and some apical pleural scarring and a calcified granuloma in the right lung apex. Axial images through the disc spaces demonstrate the following: C1-C2: There is narrowing of the atlantoaxial interval with spurring. There is no significant stenosis. C2-C3: There is a posterior central disc protrusion with mild to moderate canal narrowing. The foramina are patent. C3-C4: There is a posterior central disc protrusion with at least mild to moderate canal narrowing. The foramina are patent. C4-C5: Uncovertebral arthrosis and facet disease is present without significant foraminal narrowing. The canal is minimally narrowed. C5-C6: There is posterior disc osteophyte complex changes with mild-to- moderate canal narrowing. Uncovertebral arthrosis and facet disease results in moderate severe left foraminal narrowing. C6-C7: There is minimal bilateral foraminal narrowing and minimal canal narrowing. C7-T1: No significant posterior disc disease, spinal canal or neural foraminal stenosis. IMPRESSION: There is spondylosis as detailed above without acute osseous abnormality. Note is made of a partially imaged moderate size right pleural effusion. Recommend chest x-ray imaging. [facility]-[id number] Performing Organization Address City/State/Zipcode Phone Number [facility] [address] [place] [address] XR Knee 1 Or 2 Vw Right (08/01/2019 3:18 PM CDT) Specimen Narrative Performed At EXAMINATION:XR KNEE 1 OR 2 VW RIGHT [facility] CLINICAL HISTORY:Knee paininitial exam COMPARISON:None. IMPRESSION: There is no evidence of right knee fracture, dislocation, or joint effusion. Bone mineralization is normal. [facility]-[id number] Procedure Note Hm Interface, Radiology Results Incoming - 08/01/2019 3:30 PM CDT EXAMINATION: XR KNEE 1 OR 2 VW RIGHT CLINICAL HISTORY: Knee pain initial exam COMPARISON: None. IMPRESSION: There is no evidence of right knee fracture, dislocation, or joint effusion. Bone mineralization is normal. [facility]-[id number] Performing Organization Address City/[facility]/Zipcode Phone Number [facility] [address] [place] [id number] Troponin (08/01/2019 1:24 PM CDT)Only the most recent of2 resultswithin the time period is included. Pathologist [facility] Troponin 0.008 0.000 - 0.040 [facility] Comment: ng/mL [facility] changed methodology effective: 03/25/2019 at 10:00 am The new method has a 99th percentile cutoff of 0.040 ng/mL Specimen Plasma specimen Performing Organization Address [facility] Phone Number [facility] DEPARTMENT OF PATHOLOGY AND [address] [place] [phone] [address] Partial thromboplastin time, activated (08/01/2019 1:24 PM CDT)Only the most recent of3 resultswithin the time period is included. [facility] PTT 30.9 23.0 - 36.0 [facility] Comment: [facility] PTT therapeutic range for unfractionated heparin is 61.0-112.0 seconds which corresponds to Anti-Xa 0.3-0.7 U/ml. Specimen Blood Performing Organization Address [facility] Phone Number [facility] DEPARTMENT OF PATHOLOGY AND [address] [place] [phone] [address] Phosphorus level (08/01/2019 1:24 PM CDT)Only the most recent of13 resultswithin the time period is included. [facility] Phosphorus 3.0 2.4 - 4.5 mg/dL [facility] Specimen Plasma specimen Performing Organization Address [facility] Phone Number [facility] DEPARTMENT OF PATHOLOGY AND [address] [place] [phone] [address] B natriuretic peptide (08/01/2019 1:24 PM CDT)Only the most recent of2 resultswithin the time period is included. BNP 65 0 - 100 pg/mL [facility] Specimen Blood Performing Organization Address City/[facility] Phone Number [facility] DEPARTMENT OF PATHOLOGY AND [address] [place] [id number] [place] [address] Magnesium level (08/01/2019 1:24 PM CDT)Only the most recent of21 resultswithin the time period is included. Magnesium 1.7 1.6 - 2.4 mg/dL [facility] Specimen Plasma specimen Performing Organization Address [facility] Phone Number [facility] DEPARTMENT OF PATHOLOGY AND [address] [place] [phone] Lactic acid level (08/01/2019 1:24 PM CDT)Only the most recent of3 resultswithin the time period is included. Lactic acid 2.0 0.5 - 2.2 mmol/L [facility] Specimen Plasma specimen Performing Organization Address City/[facility] Phone Number [facility] DEPARTMENT OF PATHOLOGY AND [address] [place] [phone] Comprehensive metabolic panel (08/01/2019 1:24 PM CDT)Only the most recent of13 resultswithin the time period is included. Sodium 141 135 - 148 [facility] mEq/L [facility] Potassium 3.4 (L) 3.5 - 5.0 [facility] mEq/L [facility] Chloride 110 98 - 112 mEq/L [facility] CO2 19 (L) 24 - 31 mEq/L [facility] Anion gap 12@ANIO 7 - 15 mEq/L [facility] BUN 21 8 - 23 mg/dL [facility] Creatinine 1.40 (H) 0.70 - 1.20 [facility] mg/dL [facility] Glucose 137 (H) 65 - 99 mg/dL [facility] Calcium 7.8 (L) 8.8 - 10.2 [facility] mg/dL [facility] Protein 5.0 (L) 6.3 - 8.3 g/dL [facility] Comment: HOSPITAL 4.6-7.0 g/dL 1 week 4.4-7.6 g/dL 7 months-1year5.1-7.3 g/dL 1-2 years5.6-7.5 g/dL >3 years6.0-8.0 g/dL 18-150 6.3-8.3 g/dL Albumin 2.0 (L) 3.5 - 5.0 g/dL [facility] A/G ratio 0.7 0.7 - 3.8 [facility] Alkaline phosphatase 101 40 - 129 U/L [facility] AST 24 10 - 50 U/L [facility] ALT 18 5 - 50 U/L [facility] Total bilirubin 0.4 0.0 - 1.2 [facility] mg/dL [facility] Specimen Plasma specimen Performing Organization Address City/State/Zipcode Phone Number [facility] DEPARTMENT OF PATHOLOGY AND [address] [place] [address] [place] [address] CT Maxillofacial Wo Contrast (08/01/2019 12:14 PM CDT) Specimen Narrative Performed At EXAMINATION: CT MAXILLOFACIAL WO CONTRAST [facility] CLINICAL INFORMATION: fall COMPARISON: None available at the time of study. TECHNIQUE: CT images and reformations were created without intravenous contrast. FINDINGS: BONES: There is a mildly displaced fracture of the bilateral nasal bones, anterior nasal septum and right maxillary frontal process with approximately 2 mm bone fragment displaced into the right nasal passage, no evidence of orbital fractures or traumatic disruption of the anterior lacrimal crest (osseous insertion of the internal canthal tendon). No other bony injuries visualized in the suprafacial or mid facial structures SINUSES: Normal development and pneumatization. Minimal mucosal thickening seen in the right maxillary sinus. The osteomeatal complexes, sphenoethmoidal recesses and nasofrontal ducts are patent, no significant abnormalities identified in the nasolacrimal ducts, turbinates, superior, middle and inferior meatus. ORBITS: Changes of remote bilateral cataract surgery, otherwise unremarkable bony orbits, intraorbital contents, and retrobulbar structures. MANDIBLE: Normal. No focal lesions, no evidence of acute complicated odontogenic infection. SKULL BASE: Normal. No focal lesions, no mass NASOPHARYNX:Normal. No focal lesions, no mass CERVICAL SPINE: Normal. No fractures, focal lesions or acute osseous abnormality . SOFT TISSUES: Unremarkable with no focal lesion or mass. IMPRESSION: Minimally displaced fracture of the bilateral nasal bones, anterior septum and right maxillary frontal process No other significant findings. Procedure Note Interface, Radiology Results Incoming - 08/01/2019 12:43 PM CDT EXAMINATION: CT MAXILLOFACIAL WO CONTRAST CLINICAL INFORMATION: fall COMPARISON: None available at the time of study. TECHNIQUE: CT images and reformations were created without intravenous contrast. FINDINGS: BONES: There is a mildly displaced fracture of the bilateral nasal bones, anterior nasal septum and right maxillary frontal process with approximately 2 mm bone fragment displaced into the right nasal passage, no evidence of orbital fractures or traumatic disruption of the anterior lacrimal crest (osseous insertion of the internal canthal tendon). No other bony injuries visualized in the suprafacial or mid facial structures SINUSES: Normal development and pneumatization. Minimal mucosal thickening seen in the right maxillary sinus. The osteomeatal complexes, sphenoethmoidal recesses and nasofrontal ducts are patent, no significant abnormalities identified in the nasolacrimal ducts, turbinates, superior, middle and inferior meatus. ORBITS: Changes of remote bilateral cataract surgery, otherwise unremarkable bony orbits, intraorbital contents, and retrobulbar structures. MANDIBLE: Normal. No focal lesions, no evidence of acute complicated odontogenic infection. SKULL BASE: Normal. No focal lesions, no mass NASOPHARYNX: Normal. No focal lesions, no mass CERVICAL SPINE: Normal. No fractures, focal lesions or acute osseous abnormality . SOFT TISSUES: Unremarkable with no focal lesion or mass. IMPRESSION: Minimally displaced fracture of the bilateral nasal bones, anterior septum and right maxillary frontal process No other significant findings. Performing Organization Address City/State/Zipcode Phone Number [facility] [address] [place] [address] CT Head Wo Contrast (08/01/2019 12:14 PM CDT) Specimen Narrative Performed At EXAMINATION:[facility] IM[facility]ING WAS PERFORMED WITH ITERATIVE RECONSTRUCTION TECHNIQUE AND/OR AUTOMATED EXPOSURE CONTROL TO REDUCE RADIATION DOSE. CLINICAL HISTORY:fall COMPARISON:None. FINDINGS: There is no acute intracranial abnormality. Specifically there is no intracranial hemorrhage, mass effect or acute infarction. There is an appearance of a injury to the nose with possible minimal nasal bone fractures at least on the right side and minimal subcutaneous air in the soft tissue nose. There is also fracture of the anterior superior aspect of the nasal septum. There are mild nonspecific cerebral white matter microvascular changes. There is moderate cerebral cortical volume loss and mild cerebellar volume loss. There is minimal basal ganglia calcification. Atherosclerotic calcifications noted in the distal internal carotid and to a lesser degree vertebral and basilar arteries. There is minimal mucosal thickening in the ethmoid and maxillary sinuses with a tiny retention cyst in the maxillary sinus on right. IMPRESSION: Nasal injury without acute intracranial abnormality. [facility]-[id number] Procedure Note Interface, Radiology Results Incoming - 08/01/2019 12:22 PM CDT EXAMINATION: CT HEAD WO CONTRAST CT IMAGING WAS PERFORMED WITH ITERATIVE RECONSTRUCTION TECHNIQUE AND/OR AUTOMATED EXPOSURE CONTROL TO REDUCE RADIATION DOSE. CLINICAL HISTORY: fall COMPARISON: None. FINDINGS: There is no acute intracranial abnormality. Specifically there is no intracranial hemorrhage, mass effect or acute infarction. There is an appearance of a injury to the nose with possible minimal nasal bone fractures at least on the right side and minimal subcutaneous air in the soft tissue nose. There is also fracture of the anterior superior aspect of the nasal septum. There are mild nonspecific cerebral white matter microvascular changes. There is moderate cerebral cortical volume loss and mild cerebellar volume loss. There is minimal basal ganglia calcification. Atherosclerotic calcifications noted in the distal internal carotid and to a lesser degree vertebral and basilar arteries. There is minimal mucosal thickening in the ethmoid and maxillary sinuses with a tiny retention cyst in the maxillary sinus on right. IMPRESSION: Nasal injury without acute intracranial abnormality. [facility]-[id number] Performing Organization Address City/State/Zipcode Phone Number [facility] [address] [place] [address] Urinalysis screen and microscopy, with reflex to culture (07/30/2019 1:16 PM CDT)Only the most recent of4 resultswithin the time period is included. Specimen site Clean catch [facility] Color, UA Yellow [facility] Appearance, UA Hazy [facility] Specific gravity, 1.016 1.001 - 1.035 [facility] pH, UA 5.0 5.0 - 8.5 [facility] Protein, UA 1+ (A) Negative [facility] Glucose, UA Negative Negative [facility] Ketones, UA Negative Negative [facility] Bilirubin, UA Negative Negative [facility] Blood, UA Negative Negative [facility] Nitrite, UA Negative Negative [facility] Urobilinogen, UA <2.0 <2.0 [facility] Leukocyte esterase, Negative Negative [facility] Epithelial cells, 1 /HPF [facility] WBC, UA 4 (H) 0 - 1 /HPF [facility] RBC, UA <1 0 - 5 /HPF [facility] Bacteria, UA Few None seen [facility] Yeast, UA Moderate (A) [facility] Yeast with Few (A) [facility] pseudohyphae, UA [facility] Hyaline casts, UA 2-5 /LPF [facility] Specimen Urine Performing Organization Address City/[facility] Phone Number [facility] DEPARTMENT OF PATHOLOGY AND [address] [place] [address] [place] [phone] Gram stain (07/30/2019 1:15 PM CDT)Only the most recent of2 resultswithin the time period is included. Gram stain result Rare WBC's [facility] No organisms seen HOSPITAL Comment: Specimen Information Specimen Source: Urine Specimen Site: Clean catch Specimen Urine Performing Organization Address City/[facility] Facility[facility] Phone Number [facility] DEPARTMENT OF PATHOLOGY AND [address] [place] [address] Urine culture (07/30/2019 1:15 PM CDT)Only the most recent of4 resultswithin the time period is included. Urine culture Heena glabrata [facility] isolate 10-5 cfu/ml HOSPITAL The performance characteristics of this assay on this isolate were validated by the Microbiology Laboratory at [facility].This source has not been approved by the U.S. Food and Drug Administration.The results are not intended to be used as the sole means for clinical diagnosis or patient management.The Microbiology Laboratory is authorized under the clinical Laboratory Improvement Amendments of 1988 (CLIA-88) to perform high complexity testing. (A) Comment: Specimen Information Specimen Source: Urine Specimen Site: Clean catch Specimen Urine Organism Antibiotic Method Susceptibility Heena glabrata Micafungin BP 0.016 mcg/mL: Susceptible Heena glabrata Amphotericin B BP 0.50 mcg/mL [facility] gl[facility]rata Posiconazole BP 0.5 mcg/mL [facility] Itraconazole BP 0.25 mcg/mL [facility] Fluconazole BP 4 mcg/mL: Susceptible Performing Organization Address City/State/Zipcode Phone Number [facility] DEPARTMENT OF PATHOLOGY AND [address] [place] [address] Cancer antigen 19-9 (07/30/2019 8:15 AM CDT)Only the most recent of2 resultswithin the time period is included. CA 19-9 1,837 (H) 0 - 35 U/mL [facility] Comment: HOSPITAL The Cellectar Doyle 8000 CA19-9 immunoassay was used. Results obtained with different assay methods or kits should not be used interchangeably and may be different. Specimen Plasma specimen Performing Organization Address City/[facility] Facility[facility]d Phone Number [facility] DEPARTMENT OF PATHOLOGY AND [address] [place] [address] Urinalysis, automated with microscopy (07/30/2019 7:55 AM CDT)Only the most recent of4 resultswithin the time period is included. Color, UA Yellow [facility] Appearance, UA Hazy [facility] Specific gravity, 1.009 1.001 - 1.035 [facility] pH, UA 5.0 5.0 - 8.5 [facility] Protein, UA Negative Negative [facility] Glucose, UA Negative Negative [facility] Ketones, UA Negative Negative [facility] Bilirubin, UA Negative Negative [facility] Blood, UA Negative Negative [facility] Nitrite, UA Negative Negative [facility] Urobilinogen, UA <2.0 <2.0 [facility] Leukocyte esterase, Small (A) Negative [facility] Epithelial cells, 2 /HPF [facility] WBC, UA 18 (H) 0 - 1 /HPF [facility] RBC, UA <1 0 - 5 /HPF [facility] Bacteria, UA Few None seen [facility] Hyaline casts, UA 5-10 /LPF [facility] WBC clumps, UA Few (A) [facility] Yeast, UA Moderate (A) [facility] Yeast with Few (A) [facility] pseudohyphae, UA [facility] Specimen Urine Performing Organization Address City/[facility] Facilitycode Phone Number [facility] DEPARTMENT OF PATHOLOGY AND [address] [place] [address] [facility] [address] [place] [address] C difficile toxin (07/16/2019 2:07 PM CDT)Only the most recent of2 resultswithin the time period is included. Clostridium No Clostridium difficle toxin present [facility] difficile toxin Comment: HOSPITAL Specimen Information Specimen Source: Stool Specimen Site: Nonpreserved Specimen Stool - Nonpreserved Performing Organization Address City/[facility] Facility[facility] Phone Number [facility] DEPARTMENT OF PATHOLOGY AND [address] [place] [address] Carcinoembryonic antigen (CEA) (07/03/2019 9:50 AM CDT) CEA 2.5 0.0 - 3.8 [facility] Comment: ng/mL [facility] Reference range for heavy smokers:0.0 - 5.5 ng/mL The MEAGAN Doyle 8000 CEA immunoassay was used. Results obtained with different assay methods or kits should not be used interchangeably and may be different. Specimen Serum Performing Organization Address [facility] Facility[facility]d Phone Number [facility] DEPARTMENT OF PATHOLOGY AND [address] [place], [place] [phone] [address] [address] Ionized calcium (06/29/2019 4:00 AM CDT) pH 7.50 [facility] Ionized calcium 1.01 (L) 1.11 - 1.32 [facility] mmol/L HOSPITAL Specimen Plasma specimen Performing Organization Address City/[facility]/Zipcode Phone Number [facility] DEPARTMENT OF PATHOLOGY AND [address] [place], [place] [phone] Us duplex venous lower extremity (06/28/2019 6:45 AM CDT)Only the most recent of2 resultswithin the time period is included. Specimen Narrative Performed At [facility] Lower Extremity Venous Report [address] [address] Pat.Name:CLARICE MEJIA Pat.ID:[id number] .Date: 06/28/2019 Refer.:MARCELA KING MD Exam Time: 6:12:00 AMStudy Type:LE Venous Height:70inWeight: 108lb BSA: 1.61 m2 DOBAge:1955,64Y Sex: MALE Sonogrphr: CARMEN Donaldson, RDCS, RVT/Dede Diaz RDCS, RVT Pat. Stat.:Inpatient Room:[address] TapeVol: KG/CC,CPT - 4: [address]809 Echo Event ID:[id number] Order ID:[id number] Reason for Study:Bilateral leg swelling and pain, [...] [facility] Lower Extremity Venous Report [address] [address], [place] [address] Pat.Name: CLARICE MEJIA Pat.ID: [id number] .Date: 06/28/2019 Refer.MD: MARCELA KING MD Exam Time: 6:12:00 AM Study Type:LE Venous Height: 70in Weight: 108lb BSA: 1.61 m2 Age: 3 1955,64Y Sex: MALE Sonogrphr: CARMEN Donaldson, RDCS, RVT/Dede Diaz RDCS, RVT Pat. Stat.:Inpatient Room: [address] Tape Vol: KG/CC, CPT - 4: 68206 Echo Event ID:[id number] Order ID: [id number] Reason for Study:Bilateral leg swelling and pain, [...] Signed 06/29/2019 07:27 AM Richard Dove MD, [facility] Performing Organization Address City/State/Zipcode Phone Number [facility] [address] [place] [address] Blood smear consult (06/24/2019 4:55 AM CDT) Blood smear Done [facility] consult Comment: HOSPITAL Leukopenia with left shift granulocytes, and rare blasts (2%), consistent with Granx treatment effect.Reviewed by Quincy Walsh M.D. Blast results called to and read back by Ibrahima Ceballos/Coni at06/25/2019 10:33 by _AD_. Specimen Performing Organization Address City/[facility] Facilitycode Phone Number [facility] DEPARTMENT OF PATHOLOGY AND [address] [place] [address] Triglycerides (06/24/2019 4:55 AM CDT) Pathologist [facility] Triglycerides 143 <150 mg/dL [facility] Specimen Plasma specimen Performing Organization Address [facility] Phone Number [facility] DEPARTMENT OF PATHOLOGY AND [address] [place] [address] XR Abdomen 1 Vw Portable (06/23/2019 11:48 PM CDT) Specimen Narrative Performed At EXAMINATION:XR ABDOMEN 1 VW PORTABLE [facility] CLINICAL HISTORY:confirm ngt placement COMPARISON:None. IMPRESSION: 1.Nasogastric tube extends into the stomach. The bowel gas pattern is nonspecific. 2.Surgical clips overlie the right upper quadrant. 3.Spondylosis lower lumbar spine. [facility]-[id number] Procedure Note Interface, Radiology Results Incoming - 06/24/2019 12:31 AM CDT EXAMINATION: XR ABDOMEN 1 VW PORTABLE CLINICAL HISTORY: confirm ngt placement COMPARISON: None. IMPRESSION: 1. Nasogastric tube extends into the stomach. The bowel gas pattern is nonspecific. 2. Surgical clips overlie the right upper quadrant. 3. Spondylosis lower lumbar spine. [facility]-[id number] Performing Organization Address [facility] Facility[facility] Phone Number [facility] [address] [place] [address] Gastrointestinal panel (06/21/2019 12:26 PM CDT) Pathologist [facility] Gastrointestinal panel Positive for C. difficile toxin [place] [facility] Negative for all other pathogens tested: HOSPITAL [...] Specimen Stool - Nonpreserved Performing Organization Address City/[facility] Facility[facility] Phone Number [facility] DEPARTMENT OF PATHOLOGY AND [address] [place] [address] Type and screen (06/11/2019 4:36 AM CDT) ABO grouping AB [facility] Rh type POS [facility] Antibody screen (gel) NEG [facility] Specimen Blood Performing Organization Address City/[facility] Facility[facility] Phone Number [facility] DEPARTMENT OF PATHOLOGY AND [address] [place] [address] NM Lung Ventilation Perfusion (06/01/2019 3:47 PM [...] Very low probability of acute pulmonary embolism. [facility] Procedure Note Interface, Radiology Results Incoming - [...] Very low probability of acute pulmonary embolism. [facility] Performing Organization Address [facility] Facility[facility] Phone Number [facility] [address] [place] [address] Lactic acid level, SEPSIS - Now and repeat 2x every 3 hours (05/30/2019 4:54 PM CDT)Only the most recent of3 resultswithin the time period is included. Lactic acid 3.1 (H) 0.5 - 2.2 mmol/L [facility] Specimen Blood Performing Organization Address [facility] Facility[facility] Phone Number [facility] DEPARTMENT OF PATHOLOGY AND [address] [place] [address] [facility] [address] [address] Echocardiogram complete w contrast and 3D if needed (05/30/2019 11:45 AM CDT) Specimen Narrative Performed At [facility] Echocardiography Report [address] [facility] [address] [address] Pat.Name:CLARICE MEJIA Gillian.ID:[id number] .Date: 05/30/2019 Refer.MD:KEENA OZUNA MD Exam Time: 11:25:00 AM Study Type:Routine Echo Height:70inWeight: 201lb BSA: 2.09 m2 DOBAge:1955,64Y Sex: MALEBP:108/60 HR:118 bpm Sonogrphr: Ashleigh Tony RDCS Pat. Stat.:Inpatient Room:[address] Study Status:Final Echo Event ID:[id number] Order ID:[id number] Reason for Study:Hypotension or Hemodynamic Instability - [...] PA systolic pressure. MEASUREMENTS: 2D Parasternal [place] Ds3 cmLVPWd1 cm LVOT 2.3 cmAo An2.3 cm LVIDd4.1 cmIndex2 cm/m Ao Rtd 3.7 cm Index1.8 cm/m LVIDs2.8 cm LV Utea902.7 g(122-174) LV%fs 31.9 % LVM Index 59.6 [...] - 05/30/2019 3:34 PM CDT Echocardiography Report [address] [place] [address] Pat.Name: CLARICE MEJIA Pat.ID: [id number] .Date: 05/30/2019 Refer.MD: KEENA OZUNA MD Exam Time: 11:25:00 AM Study Type:Routine Echo Height: 70in Weight: 201lb BSA: 2.09 m2 Age: 3 1955,64Y Sex: MALE BP: 108/60 HR: 118 bpm Sonogrphr: Ashleigh Tony RDCS Pat. Stat.:Inpatient Room: [address] Study Status:Final Echo Event ID:[id number] Order ID: [id number] Reason for Study:Hypotension or Hemodynamic Instability - [...] PA systolic pressure. MEASUREMENTS: 2D Parasternal [place] Ds 3 cm LVPWd 1 cm [...] PM Paulino Dumont M.D. Performing Organization Address City/[facility]/Zipcode Phone Number [facility] [address] [place] [address] Sedimentation rate (05/28/2019 10:55 AM CDT) Sedimentation rate 67 (H) 0 - 10 mm/hr [facility] Specimen Blood Performing Organization Address City/[facility]/Zipcode Phone Number [facility] DEPARTMENT OF PATHOLOGY AND [address] [place] [address] [address] Sodium level, urine, random (05/28/2019 9:54 AM CDT) Sodium, urine, random 26 mEq/L [facility] Specimen Urine Performing Organization Address City/State/Zipcode Phone Number [facility] DEPARTMENT OF PATHOLOGY AND [address] [place] [phone] [place] [address] Creatinine level, urine, random (05/28/2019 9:54 AM CDT) Creatinine, urine, 170 mg/dL [facility] Specimen Urine Performing Organization Address City/[facility] Phone Number [facility] DEPARTMENT OF PATHOLOGY AND [address] [place] [address] [place] Renal (05/28/2019 9:11 AM CDT) Specimen Narrative Performed At Renal ultrasound, 05/28/2019 10:15 AM [facility] Clinical history: Acute renal failure Comparison: None Technique: Grayscale and color Doppler ultrasound. Findings: Right kidney: 10.2 x 5.5 x 6 cm. Cortex thickness 1.2 cm. Normal kidney. Left kidney: 10.7 x 5.7 x 5.5 cm. Cortex thickness 1.2 cm. Two simple cysts measuring 2 cm in diameter. Otherwise, normal. Bladder: Unremarkable. The patient did not void for postvoid volume calculation. Swetc-tw-giqstzci volume pelvic ascites. Impression: 1.No acute abnormality [...] did not void for postvoid volume calculation. Wfqoq-te-hjmayjqj volume pelvic ascites. Impression: 1. No acute abnormality of the kidneys. Specifically, no evidence of obstruction. 2. Small to moderate pelvic ascites. Performing Organization Address City/[facility]/Zipcode Phone Number [address] [address] Blood culture, aerobic & anaerobic (05/27/2019 11:55 PM CDT)Only the most recent of2 resultswithin the time period is included. Blood culture No growth after 5 days of incubation. [facility] isolate Comment: HOSPITAL Specimen Information Specimen Source: Blood Specimen Site: Unspecified Specimen Blood Performing Organization Address [facility] Phone Number [facility] DEPARTMENT OF PATHOLOGY AND [address] [place] [address] [place] [address] Uric acid level (05/27/2019 9:50 PM CDT) Uric acid 6.7 3.4 - 7.0 mg/dL [facility] Specimen Blood Performing Organization Address [facility] Phone Number [facility] DEPARTMENT OF PATHOLOGY AND [address] [place] [address] [address] Prealbumin level (05/27/2019 9:50 PM CDT) Prealbumin 10 (L) 16 - 32 mg/dL [facility] Specimen Serum Performing Organization Address [facility] [facility] Phone Number [facility] DEPARTMENT OF PATHOLOGY AND [address] [place] [id number] [place] [id number] Lipase level (05/27/2019 9:50 PM CDT) Lipase 25 13 - 60 U/L [facility] Specimen Blood Performing Organization Address [facility] Phone Number [facility] DEPARTMENT OF PATHOLOGY AND [address] [place] [id number] Creatine kinase, total (CPK) (05/27/2019 9:50 PM CDT) Creatine kinase 185 39 - 308 U/L [facility] Specimen Blood Performing Organization Address [facility]/State/Zipcode Phone Number [facility] DEPARTMENT OF PATHOLOGY AND [address] [place] [address] [facility] [address] [place] [address] Bilirubin direct (05/27/2019 9:50 PM CDT) Bilirubin direct <0.2 0.0 - 0.3 mg/dL [facility] Specimen Blood Performing Organization Address City/State/Zipcode Phone Number [facility] DEPARTMENT OF PATHOLOGY AND [address] [place] [address] [facility] [address] [place] [address] XR Chest 2 Vw (01/07/2019 4:52 PM LAWYER) Specimen Narrative Performed At EXAMINATION:XR CHEST 2 VW RADIANT CLINICAL HISTORY:R05 Cough, COUGH COMPARISON:None IMPRESSION: Lungs are clear. Cardiothymic is also is within normal limits. Right IJ line is seen with its tip in lower SVC. Suspicious osseous lesion is not identified. [facility]-[id number] Procedure Note Hm Interface, Radiology Results Incoming - 01/07/2019 4:57 PM LAWYER EXAMINATION: XR CHEST 2 VW CLINICAL HISTORY: R05 Cough, COUGH COMPARISON: None IMPRESSION: Lungs are clear. Cardiothymic is also is within normal limits. Right IJ line is seen with its tip in lower SVC. Suspicious osseous lesion is not identified. [facility]-[id number] Performing Organization Address City/State/Zipcode Phone Number [facility] [address] [place] [address] after 08/05/2018 Advance Directives For more information, please contact: [phone] Type Date Recorded Patient Peace Officer Explanation Advance Directives, Living Will 06/21/2019 4:56 AM and Medical Power of Talent Coordinator
--- OUTSIDE RECORDS SUMMARY | 2019-08-06 23:59 | XMS REPORT | Clinical Summary ---
:1955 Author Organization [facility] Address [address] [place] [address] Care Team Providers Name Role Phone Tesha [...] (HCC); Acute respiratory insufficiency; Acute postoperative pain after 08/05/2018 Social History Tobacco Use Types Packs/Day Years [...] Not on file Implants Implanted Type Area Special Officer Automat Device Identifier Shelf Model / Expiration Serial / Lot Date Cath Exp Silv Soak Fire Control Mechanic 12.5cmx [id number] - [id number] Pain Abdomen MISTY PHAN [id number] 09/10/2020 [id number] / Implanted: Qty: 2 on 08/14/2018 by Víctor Sam MD [facility]/St / marisol [id number] r Procedures Procedure Name Priority Date/Time Associated Comments Diagnosis PERMANENT LAB REPORT - 06/10/2019 12:02 SCAN PM CDT INTRAOPERATIVE PATH 09/25/2018 4:36 REPORT - SCAN PM FIRER KILN INTRAOPERATIVE PATH 09/25/2018 4:36 REPORT - SCAN PM FIRER KILN RHYTHM STRIP - SCAN 08/27/2018 9:10 AM [...] 354 ms QTC Calculation(Bazett) 465 ms P [place] 33 degrees R [place] 18 degrees T [place] 71 degrees Sinus tachycardia Otherwise normal ECG [...] 08/16/2018 2:58 PM CDT NM LUNG SCAN (V/Q) STAT 08/16/2018 12:39 PM CDT POCT-GLUCOSE METER Routine 08/16/2018 11:23 AM CDT [...] Routine 08/16/2018 3:09 AM CDT XR ABDOMEN / KUB 1 VIEW STAT 08/16/2018 1:21 AM CDT ECG 12-LEAD Routine 08/15/2018 10:48 PM CDT Procedure Note - Interface, External Ris In - 08/15/2018 10:53 PM CDT Ventricular Rate 114 BPM Atrial Rate 114 BPM QRS Duration 84 ms Q-T Interval 332 ms QTC Calculation(Bazett) 457 ms P [place] 70 degrees R [place] 57 degrees T [place] 22 degrees Sinus tachycardia Nonspecific ST abnormality [...] CDT procedure are in the results section. after 08/05/2018 Results PERMANENT LAB REPORT - SCAN (06/10/2019 12:02 PM CDT) Narrative Performed At INTRAOPERATIVE PATH REPORT - SCAN (09/25/2018 4:36 PM FIRER KILN)Only the most recent of2 resultswithin the time period is included. Narrative Performed At RHYTHM STRIP - SCAN (08/27/2018 9:10 AM CDT) Narrative Performed At POC-Glucose meter (08/23/2018 12:42 PM CDT)Only the most recent of44 resultswithin the time period is included. POC-Glucose Meter 200 (H)Comment: TESTED AT 70 - 110 mg/dL [address] [address] Specimen Blood Performing Organization Address City/[facility]/Zipcode Phone Number [address] [address] CENTER Calcium, Ionized (08/23/2018 4:15 AM CDT)Only the most recent of9 resultswithin the time period is included. Calcium, Ion 0.99 (L) 1.12 - 1.27 mmol/L [facility] pH, Blood 7.51 [facility] Specimen Blood Performing Organization Address City/[facility]/Zipcode Phone Number [address] [address] CENTER CBC with platelet count + automated diff (08/23/2018 4:15 AM CDT)Only the most recent of6 resultswithin the time period is included. WBC 11.8 (H) 3.5 - 10.5 K/L [facility] RBC 2.97 (L) 4.63 - 6.08 M/L [facility] Hemoglobin 9.3 (L) 13.7 - 17.5 GM/DL [facility] Hematocrit 28.5 (L) 40.1 - 51.0 % [facility] MCV 96.0 (H) 79.0 - 92.2 fL [facility] MCH 31.3 25.7 - 32.2 pg [facility] MCHC 32.6 32.3 - 36.5 GM/DL [facility] RDW 16.4 (H) 11.6 - 14.4 % [facility] Platelets 383 150 - 450 K/CU MM [facility] MPV 10.3 9.4 - 12.4 fL [facility] nRBC 0 0 - 0 /100 WBC [facility] % Neutros 66 % [facility] % Lymphs 18 % [facility] % Monos 11 % [facility] % Eos 1 % [facility] % Baso 1 % [facility] # Neutros 7.75 (H) 1.78 - 5.38 K/L [facility] # Lymphs 2.09 1.32 - 3.57 K/L [facility] # Monos 1.25 (H) 0.30 - 0.82 K/L [facility] # Eos 0.13 0.04 - 0.54 K/L [facility] # Baso 0.06 0.01 - 0.08 K/L [facility] Immature Granulocytes-Relative 5 (H) 0 - 1 % [facility] Specimen Blood Performing Organization Address City/State/Zipcode Phone Number [facility] [address] [place] [address] CENTER Phosphorus (08/23/2018 4:15 AM CDT)Only the most recent of18 resultswithin the time period is included. Phosphorus 3.2 2.3 - 4.7 mg/dL [facility] Specimen Blood Performing Organization Address City/[facility] Hospital[facility] Phone Number [facility] [address] [place] [address] [phone] [place] Magnesium (08/23/2018 4:15 AM CDT)Only the most recent of11 resultswithin the time period is included. Magnesium 1.7 1.6 - 2.6 mg/dL [facility] Specimen Blood Performing Organization Address City/[facility] Phone Number [facility] [address] [place] [address] [phone] [place] Hepatic function panel (08/23/2018 4:15 AM CDT)Only the most recent of9 resultswithin the time period is included. Protein, Total 5.9 (L) 6.0 - 8.3 gm/dL [facility] Albumin 3.1 (L) 3.5 - 5.0 g/dL [facility] Total Bilirubin 0.8 0.2 - 1.2 mg/dL [facility] Bilirubin, Direct 0.6 (H) 0.1 - 0.5 mg/dL [facility] Alkaline Phosphatase 90 40 - 150 U/L [facility] AST 33 5 - 34 U/L [facility] ALT 63 (H) 6 - 55 U/L [facility] Specimen Blood Performing Organization Address City/[facility] Hospitalcode Phone Number [address] [address] [place] Basic Metabolic Panel (08/23/2018 4:15 AM CDT)Only the most recent of12 resultswithin the time period is included. Sodium 135 (L) 136 - 145 meq/L [facility] Potassium 3.6 3.5 - 5.1 meq/L [facility] Chloride 102 98 - 107 meq/L [facility] CO2 24 22 - 29 meq/L [facility] BUN 13 7 - 21 mg/dL [facility] Creatinine 1.08 0.57 - 1.25 mg/dL [facility] Glucose 108 (H) 70 - 105 mg/dL [facility] Calcium 8.4 8.4 - 10.2 mg/dL [facility] EGFR 69Comment: ESTIMATED GFR IS mL/min/1.73 sq m [facility] NOT ACCURATE CREATININE [facility] CENTER CLEARANCE IN PREDICTING GLOMERULAR FILTRATION RATE. ESTIMATED GFR IS NOT APPLICABLE FOR DIALYSIS PATIENTS. Specimen Blood Performing Organization Address City/State/Zipcode Phone Number [facility] [address] [place] [address] CENTER Manual Differential (08/22/2018 5:33 AM CDT)Only the most recent of3 resultswithin the time period is included. % Neutros 77 % [facility] % Lymphs 10 % [facility] % Monos 11 % [facility] % Myelo 1 (H) 0 - 0 % [facility] % Bands 1 0 - 10 % [facility] # Neutros 8.70 (H) 1.78 - 5.38 K/ul [facility] # Lymphs 1.13 (L) 1.32 - 3.57 K/ul [facility] # Monos 1.24 (H) 0.30 - 0.82 K/uL [facility] # Myelo 0.11 (H) 0.00 - 0.00 K/uL [facility] # Bands 0.11 0.00 - 0.80 K/uL [facility] Total Counted 100 [facility] RBC Morphology Normal [facility] WBC Morphology Normal [facility] Platelet Morphology Normal [facility] Artifact Present [facility] Platelet Conc Adequate [facility] Specimen Blood Narrative Performed At Received comment: [facility] User comments: Slide comments: Performing Organization Address City/State/Zipcode Phone Number [facility] [address] [place] [address] CENTER XR chest 1 view portable / bedside [...] MD Report Verified Date/Time:08/22/2018 05:00:09 Reading Location: [address] Transitional Reading Room Procedure Note Interface, [...] Report Verified Date/Time: 08/22/2018 05:00:09 Reading Location: [facility] B1 C013T Transitional Reading Room Performing Organization Address City/State/Zipcode Phone Number GE [facility]IS Sputum Culture + Gram Stain (08/21/2018 2:21 PM CDT) Result 3+ Normal respiratory talat [facility] Gram Stain Result <1+ WBCs [facility] Gram Stain Result 0-5 epithelial cells [facility] Gram Stain Result 1+ gram positive cocci in [facility] chains, pairs and clusters [facility] Specimen Sputum - Expectorated Performing Organization Address City/State/Zipcode Phone Number [facility] [address] [place] [address] [phone] chest for pulmonary embolus (08/20/2018 4:29 PM CDT) Specimen Narrative Performed At FINAL REPORT [facility] CT Chest PE Protocol dated 08/20/2018 Clinical [...] MD Report Verified Date/Time:08/20/2018 16:47:26 Reading Location: [facility] B1 C013Y CT Body Reading Room Procedure Note [...] Report Verified Date/Time: 08/20/2018 16:47:26 Reading Location: [facility] B1 C013Y CT Body Reading Room Performing Organization Address City/State/Zipcode Phone Number RIS Vancomycin level, trough (08/20/2018 9:21 AM CDT)Only the most recent of2 resultswithin the time period is included. Vancomycin Tr 16.5 10.0 - 20.0 ug/mL [facility] Specimen Blood Narrative Performed At Please draw 30 min prior to AM dose [facility] Performing Organization Address City/[facility]/Zipcode Phone Number [address] [address] [phone] CENTER B-type Natriuretic Factor (BNP) (08/20/2018 3:54 AM CDT)Only the most recent of2 resultswithin the time period is included. BNP 450 (H) 0 - 100 pg/mL [facility] Specimen Blood Performing Organization Address [facility] Hospital[facility] Phone Number [address] [address] [phone] [place] aPTT (08/20/2018 12:35 AM CDT)Only the most recent of10 resultswithin the time period is included. PTT 84.7 (H) 22.5 - 36.0 seconds [facility] Specimen Blood Performing Organization Address [facility] Hospital[facility] Phone Number [address] [address] CENTER Electrolytes (08/19/2018 3:12 PM CDT)Only the most recent of2 resultswithin the time period is included. Sodium 138 136 - 145 meq/L [facility] Potassium 3.4 (L) 3.5 - 5.1 meq/L [facility] Chloride 105 98 - 107 meq/L [facility] CO2 24 22 - 29 meq/L [facility] Specimen Blood Narrative Performed At Call [phone] [facility] Performing Organization Address City/[facility]/Zipcode Phone Number [address] [address] [phone] [place] Respiratory Panel [facility] (08/19/2018 1:10 PM CDT) Human Metapneumovirus Not detected Not detected, [facility] Rhinovirus Not detected Not detected, [facility] Influenza A Not detected Not detected, [facility] INFLUENZA A (NO SUBTYPE) Not detected, [facility] Influenza A subtype H1 Not detected, [facility] Influenza A Subtype H3 Not detected, [facility] Influenza A Subtype H1-2009 Not detected, [facility] Influenza B Not detected Not detected, [facility] Respiratory Syncytial Virus Not detected Not detected, [facility] Parainfluenza Virus 1 Not detected Not detected, [facility] Parainfluenza Virus 2 Not detected Not detected, [facility] Parainfluenza virus 3 Not detected Not detected, [facility] Parainfluenza Virus 4 Not detected Not detected, [facility] Adenovirus Not detected Not detected, [facility] Coronavirus 229E Not detected Not detected, [facility] Coronavirus HKU1 Not detected Not detected, [facility] Coronavirus NL63 Not detected Not detected, [facility] Coronavirus OC43 Not detected Not detected, [facility] Bordetella Pertussis Not detected Not detected, [facility] Chlamydophila Pneumoniae Not detected Not detected, [facility] Mycoplasma Pneumoniae Not detected Not detected, [facility] Specimen Nasopharyngeal Narrative Performed At Other viruses and bacteria not targeted by [facility] this PCR panel cannot be excluded; therefore clinical correlation and follow up of serology, culture results, and other molecular studies is required. The results are not intended to be used as the sole means for clinical diagnosis or patient management decisions. This sample was tested at the [facility] Molecular Diagnostics Laboratory using the [employer] Verification SystemsArray Respiratory Panel. It is FDA cleared and has been verified and approved by the [facility] Molecular Diagnostics Laboratory for clinical use on nasal swab specimens. It is not FDA-cleared for use on bronchial wash/lavage samples. However, for this sample type, validation was performed and test characteristics were determined and approved, by [facility] Molecular Diagnostics laboratory for clinical use under the Clinical Laboratory Improvement Amendments (CLIA) of 1988 requirements. Therefore, FDA clearance is not required.This laboratory is CLIA-certified and [employer] [place] (CAP)-accredited to perform high complexity testing. Performing Organization Address City/[facility] Hospitalcode Phone Number [address] [address] [place] Rapid Influenza A&B Screen (08/19/2018 1:10 PM CDT) Rapid Influenza A Antigen Negative Negative, Inconclusive [facility] Rapid influenza B Antigen Negative Negative, Inconclusive [facility] Specimen Nasal Performing Organization Address [facility] Phone Number [address] [address] [phone] [place] Blood gas, arterial (08/18/2018 7:09 AM CDT)Only the most recent of5 resultswithin the time period is included. pH, Arterial 7.51 (H) 7.35 - 7.45 [facility] pCO2, Arterial 29 (L) 35 - 45 mmHg [facility] pO2, Arterial 173 (H) 80 - 90 mmHg [facility] O2 Sat, Arterial 99.3 (H) 96.0 - 97.0 % [facility] HCO3, Arterial 23 21 - 29 mmol/L [facility] Base Excess, Arterial 0.4 -2.0 - 3.0 mmol/L [facility] Patient Temperature 37.0 C [facility] FIO2 60.0 % [facility] Specimen Blood, Arterial Performing Organization Address [facility] Phone Number [facility] [address] [place] [address] CENTER ECHOCARDIOGRAM REPORT - SCAN (08/17/2018 5:50 PM CDT) Narrative Performed At PT/aPTT (08/17/2018 1:13 PM CDT) Protime 14.0 11.7 - 14.7 seconds [facility] INR 1.1 <=5.9 [facility] PTT 45.0 (H) 22.5 - 36.0 seconds [facility] Specimen Blood Narrative Performed At [facility] RECOMMENDED COUMADIN/WARFARIN INR THERAPY RANGES STANDARD DOSE: 2.0 - 3.0 Includes: PROPHYLAXIS for venous thrombosis, systemic embolization; TREATMENT for venous thrombosis and/or pulmonary embolus. HIGH RISK: Target INR is 2.5-3.5 for patients with mechanical heart valves. Performing Organization Address City/State/Zipcode Phone Number [facility] [address] [place] [address] [place] CBC (Hemogram only) (08/17/2018 4:45 AM CDT)Only the most recent of4 resultswithin the time period is included. WBC 13.1 (H) 3.5 - 10.5 K/L [facility] RBC 3.23 (L) 4.63 - 6.08 M/L [facility] Hemoglobin 10.3 (L) 13.7 - 17.5 GM/DL [facility] Hematocrit 31.8 (L) 40.1 - 51.0 % [facility] MCV 98.5 (H) 79.0 - 92.2 fL [facility] MCH 31.9 25.7 - 32.2 pg [facility] MCHC 32.4 32.3 - 36.5 GM/DL [facility] RDW 17.1 (H) 11.6 - 14.4 % [facility] Platelets 173 150 - 450 K/CU MM [facility] MPV 11.3 9.4 - 12.4 fL [facility] nRBC 0 0 - 0 /100 WBC [facility] Specimen Blood Performing Organization Address City/State/Zipcode Phone Number [facility] [address], [place] [phone] [place] Creatine Kinase (CK) (08/17/2018 4:45 AM CDT) Total CK 1,084 (H) 29 - 200 U/L [facility] Specimen Blood Performing Organization Address City/[facility] Phone Number [facility] [address] [place] [address] CENTER US renal complete (08/16/2018 7:53 PM CDT) Specimen Narrative Performed At FINAL REPORT [facility] Renal ultrasound dated 08/16/2018 Comment:Real-time transabdominal renal ultrasound was performed. Right kidney measures 10.4 x 6.1 x 5.4 cm.Left kidney measures 10 21 x 6.2 x 4.3 cm.Right renal cortex measures 1.7 cm.Left renal cortex measures 1.6 cm. Echogenicity of both renal parenchyma is normal. No hydronephrosis, solid or cystic mass seen. Comparisons made with prior MRI dated July 29, 2018 from [facility]. A 2.2 cm mass is seen in [...] MD Report Verified Date/Time:08/16/2018 23:12:40 Reading Location: [address] Consult Reading Room Procedure Note Interface, [...] prior MRI dated July 29, 2018 from [facility]. A 2.2 cm mass is seen in [...] Report Verified Date/Time: 08/16/2018 23:12:40 Reading Location: [facility] C013W Consult Reading Room Performing Organization Address City/State/Zipcode Phone Number [facility] ECG 12 lead (08/16/2018 5:57 PM CDT)Only the most recent of2 resultswithin the time period is included. Specimen Narrative Performed At Ventricular Rate 104 BPM GE MUSE Atrial Rate 104 BPM P-R Interval 186 ms QRS Duration 88 ms Q-T Interval 354 ms QTC Calculation(Bazett) 465 ms P [place] 33 degrees R [place] 18 degrees T [place] 71 degrees Sinus tachycardia Otherwise normal ECG When compared with ECG of 15-AUG-2018 22:48, No significant change was found Confirmed by MD SARAH, CARISSA ([id number]) on 08/18/2018 3:53:01 PM Procedure Note Interface, External Ris In - 08/18/2018 3:53 PM CDT Ventricular Rate 104 BPM Atrial Rate 104 BPM P-R Interval 186 ms QRS Duration 88 ms Q-T Interval 354 ms QTC Calculation(Bazett) 465 ms P [place] 33 degrees R [place] 18 degrees T [place] 71 degrees Sinus tachycardia Otherwise normal ECG When compared with ECG of 15-AUG-2018 22:48, No significant change was found Confirmed by MD SARAH, CARISSA ([id number]) on 08/18/2018 3:53:01 PM Performing Organization Address City/State/Zipcode Phone Number TEODORA ETIENNE 2D Echo W/Doppler(CW/PW/Color) (08/16/2018 4:36 PM CDT) Ejection Fraction [facility] Specimen Narrative Performed At Transthoracic Echocardiography Report (TTE) [facility] Demographics Patient NameCLARICE MEJIA Date of Study08/16/2018 Male Visit [id number] Unknown Room [id number] Number Date of 1955Referring PhysicianRaul Renee Age 63 year(s)Table Top Tile Setter Toyin Black [facility] Engineering Design Manager Moira Escalera MD Procedure Type of Study TTE procedure:2DECHO [...] of Study 08/16/2018 Gender Male Visit Number [id number] Race Unknown Room Number 6A06 Number Date of 1955 Referring Physician Raul Renee Age 63 year(s) Table Top Tile Setter Toyin Black RDCS Engineering Design Manager Keiko Escalera Physician Procedure Type of Study TTE procedure:2DECHO [...] TR Gradient: 25.48 mmHg Performing Organization Address [facility] Phone Number [facility] Urinalysis w/Microscopic + Reflex to Culture (08/16/2018 2:58 PM CDT) Color, UA Yellow [facility] Clarity, UA Hazy [facility] Specific [place], UA 1.014 1.001 - 1.035 [facility] pH, UA 5.5 5.0 - 8.0 [facility] Protein, UA 30 mg/dL (A) Negative [facility] Glucose, UA 50 mg/dL (A) Negative [facility] Ketones, UA Negative Negative [facility] Bilirubin, UA Negative Negative [facility] Blood, UA Moderate (A) Negative [facility] Nitrite, UA Negative Negative [facility] Leukocytes, UA Moderate (A) Negative [facility] Urobilinogen, UA 0.2 0.2 - 1.0 mg/dL [facility] RBC, UA <1 /HPF [facility] WBC, UA 19 /HPF [facility] Bacteria, UA Moderate [facility] Mucus Rare [facility] Hyaline Casts, UA 3 /LPF [facility] Specimen Source [facility] Specimen Urine Performing Organization Address City/[facility]/Zipcode Phone Number [facility] [address] [place] [address] CENTER Lactic acid, venous, whole blood (08/16/2018 2:58 PM CDT)Only the most recent of3 resultswithin the time period is included. Lactate, Venous 1.8Comment: Specimen 0.5 - 2.2 mmol/L [facility] slightly hemolyzed [facility] [place] Specimen Blood Narrative Performed At [facility] Effective 03/22/2016: Units/Reference Range Change New: 0.5-2.2 mmol/LPrevious: 5-20 mg/dL Performing Organization Address City/[facility] Phone Number [address] [address] [place] Sodium, random urine (08/16/2018 2:58 PM CDT) Sodium Urine 25 meq/L [facility] Specimen Urine Narrative Performed At [facility] Reference Range: No Normals Performing Organization Address City/[facility] Phone Number [address] [address] [place] Protein, random urine (08/16/2018 2:58 PM CDT) Protein, Urine 39 (H) 0 - 14 mg/dL [facility] Specimen Urine Performing Organization Address [facility] Phone Number [address] [address] [phone] [place] Creatinine, random urine (08/16/2018 2:58 PM CDT) Creatinine, Ur 137.8 mg/dL [facility] Specimen Urine Narrative Performed At [facility] Reference Range: No Normals Performing Organization Address [facility] Phone Number [address] [address] [place] Urine culture (08/16/2018 2:58 PM CDT) Result No growth [facility] Specimen Urine Performing Organization Address [facility] Phone Number [facility] [address] [place] [address] [phone] CENTER NM lung scan (V/Q) (08/16/2018 12:39 PM CDT) Specimen Narrative Performed At FINAL REPORT [facility] PROCEDURE: V/Q LUNG SCAN CPT CODE: 65028 INDICATION: Acute chest pain PROTOCOL: 10.0 mCi [...] MD Report Verified Date/Time:08/16/2018 13:16:03 Reading Location: [address] Reading Room Procedure Note Interface, External Ris In - 08/16/2018 1:18 PM CDT FINAL REPORT PROCEDURE: V/Q LUNG SCAN CPT CODE: 25169 INDICATION: Acute chest pain PROTOCOL: 10.0 mCi [...] Report Verified Date/Time: 08/16/2018 13:16:03 Reading Location: [address] [address] Reading Room Performing Organization Address City/State/Zipcode Phone Number GE RIS Venous doppler legs bilateral (08/16/2018 8:55 AM CDT) Ejection Fraction [facility] [email or web address] CPA Specimen Impressions Performed At Right Impression [facility] [email or web address] 1. There is no deep venous obstruction [...] PV LAB - Lower Extremities DVT Study [facility] TrivieESSON CPA Demographics Patient CLARICE Banks Date of Study 08/16/2018 63 Visit [id number] Male of 1955 Number Referring Raul Brown Number [id number] Physician Table Top Tile Setter Kendall Sales. InterpretingDelano Quezada RVT, Joselito VAN, JANICE Procedure Type of Study: Veins: Lower Extremities [...] of Study 08/16/2018 Age 63 Visit Number [id number] Gender Male Date of 1955 [id number] Physician Table Top Tile Setter Kendall Sales. Interpreting Delano Quezada RVT, SADIAS Physician , TAMMY Procedure Type of Study: Veins: Lower [...] are measured in cm Performing Organization Address City/State/Zipcode Phone Number [facility] MKCKESSON CPACS Blood gas, venous (08/16/2018 3:09 AM CDT) pH, Paul 7.48 (H) 7.32 - 7.42 [facility] pCO2, Paul 45 41 - 51 mmHg [facility] pO2, Paul 76 (H) 25 - 40 mmHg [facility] O2 Sat, Paul 96.0 (H) 40.0 - 70.0 % [facility] HCO3, Paul 33 (H) 21 - 29 mmol/L [facility] Base Excess, Paul 8.3 (H) -2.0 - 3.0 mmol/L [facility] Patient Temperature 37.0 C [facility] FIO2 40.0 % [facility] Specimen Blood Performing Organization Address City/[facility]/Zipcode Phone Number [facility] [address] [place] [address] [phone] CENTER XR abdomen / KUB 1 view (08/16/2018 1:21 AM CDT) Specimen Narrative Performed At FINAL REPORT [employer] Abdomen one view Comparison: None. Reason for [...] MD Report Verified Date/Time:08/16/2018 02:06:47 Reading Location: [facility] B1 C013Y CT Body Reading Room Procedure Note [...] Report Verified Date/Time: 08/16/2018 02:06:47 Reading Location: [facility] C013Y CT Body Reading Room Performing Organization Address City/[facility] Phone Number RIS Blood culture (08/15/2018 10:46 PM CDT)Only the most recent of2 resultswithin the time period is included. Result No growth in 5 days [facility] Specimen Blood Performing Organization Address [facility] Phone Number [address] [address] [phone] CENTER POCT-HEMATOCRIT (08/15/2018 10:40 PM CDT)Only the most recent of2 resultswithin the time period is included. POC-Hematocrit 29 (L)Comment: TESTED AT 40 - 50 % [address] [address] Specimen Blood Performing Organization Address [facility] Phone Number [address] [address] [phone] CENTER POCT-HEMOGLOBIN (08/15/2018 10:40 PM CDT)Only the most recent of2 resultswithin the time period is included. POC-Hemoglobin 9.9 (L)Comment: TESTED AT 13.0 - 16.8 g/dL [address] [id number] AT [address] [address] Specimen Blood Performing Organization Address [facility] Phone Number [address] [address] CENTER POCT-GLUCOSE (08/15/2018 10:40 PM CDT)Only the most recent of2 resultswithin the time period is included. POC-Glucose 257 (H)Comment: TESTED AT 70 - 110 mg/dL [address] [address] Specimen Blood Performing Organization Address [facility] Phone Number [address] [address] CENTER POC-Sodium (08/15/2018 10:40 PM CDT)Only the most recent of2 resultswithin the time period is included. POC-Sodium 133 (L)Comment: TESTED AT 135 - 148 meq/L [address] [address] Specimen Blood Performing Organization Address [facility] Phone Number [address] [address] CENTER POC-Potassium (08/15/2018 10:40 PM CDT)Only the most recent of2 resultswithin the time period is included. POC-Potassium 3.8Comment: TESTED AT [facility] 3.6 - 5.5 meq/L [address] [address] Specimen Blood Performing Organization Address [facility] Phone Number [address] [address] CENTER POC-Calcium ionized (08/15/2018 10:40 PM CDT)Only the most recent of2 resultswithin the time period is included. POC-Calcium Ionized 1.05 (L)Comment: 1.12 - 1.27 mmol/L [facility] TESTED AT [address] [address] Specimen Blood Performing Organization Address [facility] Phone Number [address] [phone] [place] POC-Blood gases, arterial (08/15/2018 10:40 PM CDT)Only the most recent of2 resultswithin the time period is included. Temp. Celsius-POC 38.3 [facility] FIO2-POC Comment: TESTED AT [address] [address] pH, Arterial-POC 7.423 7.350 - 7.450 [facility] PCO2, Arterial-POC 30.6 (L) 35.0 - 45.0 mm Hg [facility] PO2, Arterial-POC 69.0 (L) 80.0 - 90.0 mm Hg [facility] SO2, Arterial-POC 93.0 (L) 96.0 - 97.0 % [facility] HCO3, Arterilal-POC 19.8 (L) 21.0 - 29.0 meq/L [facility] BE, Arterial-POC -4.0 (L) -2.0 - 3.0 meq/L [facility] Specimen Blood Performing Organization Address [facility] Phone Number [address] [address] [place] POC-Lactic Acid, Arterial (08/15/2018 10:35 PM CDT) POC-Lactic Acid, 1.6 (H)Comment: 0.4 - 1.3 mmol/L [facility] Arterial TESTED AT [address] [address] Specimen Blood Performing Organization Address City/[facility] Phone Number [address] [address] CENTER Potassium-Stat Lab (08/14/2018 1:11 PM CDT)Only the most recent of3 resultswithin the time period is included. Potassium 4.1 3.6 - 5.5 meq/L [facility] Specimen Blood, Arterial Performing Organization Address [facility] Phone Number [address] [address] [place] Sodium Na-Stat Lab (08/14/2018 1:11 PM CDT)Only the most recent of3 resultswithin the time period is included. Sodium 139 135 - 148 meq/L [facility] Specimen Blood, Arterial Performing Organization Address [facility] Phone Number [address] [address] [phone] [place] Glucose-Stat Lab (08/14/2018 1:11 PM CDT)Only the most recent of3 resultswithin the time period is included. Glucose 210 (H) 70 - 110 mg/dL [facility] Specimen Blood, Arterial Performing Organization Address [facility] Phone Number [address] [address] CENTER HGB/HCT (H&H)-Stat Lab (08/14/2018 1:11 PM CDT)Only the most recent of3 resultswithin the time period is included. Hemoglobin 11.0 (L) 13.0 - 16.8 g/dL [facility] Hematocrit 32.0 (L) 40.0 - 50.0 % [facility] Specimen Blood, Arterial Performing Organization Address [facility] Phone Number [address] [address] [phone] CENTER Tissue Exam (08/14/2018 9:24 AM CDT) Case Report Surgical Pathology Report Case: [id number] [facility] Authorizing Provider:Víctor Sam MDCollected: 08/14/2018 0924 [facility] Ordering Location: [facility] PERIOPERATIVE Received: 08/14/2018 1156 CENTER SERVICES [...] performed at the request of the oncologist. [facility] IHC testing for all four MMR proteins was performed on selected block B5 with appropriate controls. CENTER RESULTS MLH1: Intact nuclear expression MSH2: Intact nuclear expression MSH6: Intact nuclear expression PMS2: Intact nuclear expression IHC Interpretation No loss of nuclear expression of MMR proteins: MMR proficient Additional CPT codes: 24418 x 4 ADDENDUM A PD-L1 study result from [facility] is available on 2018, performed on designated liver tissue, as requested by Dr. David Srinivasan and received by Dr. Tex Quezada pm 05/26/2019.. [facility] The study is NEGATIVE; CENTER see entire scanned report from 05/26/2019, and FAXed data from 05/31/2019.. DIAGNOSIS A. GALLBLADDER, CHOLECYSTECTOMY: [facility] - CHRONIC CHOLECYSTITIS, CHOLESTEROLOSIS [facility] B. LIVER, SEGMENT 5/6, HEPATIC SEGMENTECTOMY: - [...] FOR MALIGNANCY Signing Pathologist Direct Phone Line: [phone] COMMENT Immunohistochemical stains were performed on block B5, with the following results: [facility] - CK 7, CK 19, MOC-31, CAM 5.2: positive on tumor cells, negative on non- neoplastic liver parenchyma [facility] - CEA: weak and patchy positivity on tumor cells, negative in non-neoplastic liver parenchyma CENTER - Arginase, Hepatocyte Specific: negative in tumor, positive in non- neoplastic liver parenchyma - CK 20, Glypican-3: negative. This findings support the diagnosis of cholangiocarcinoma. SYNOPTIC REPORT INTRAHEPATIC BILE DUCTS(Bile Duct IH - All Specimens) [facility] SPECIMEN Procedure:Partial hepatectomy TUMOR Histologic Type:Intrahepatic [...] ADDITIONAL FINDINGS Additional Pathologic Findings:Steatosis CPT Code(s) 29518 x 3, 82318, 03603 x 2, [facility] 66572 x 3; 42918 x 1; 92556 x9 [facility] CLINICAL HISTORY Cholangiocarcinoma, treated [facility] with chemotherapy. [facility] SPECIMEN SOURCE A. Gallbladder. B. Liver [facility] segment 6. C. Liver additional [facility] specimen. D. Liver segment 4B CENTER GROSS [...] average. No masses or infiltrations are identified. Test Lead Application Testing sections are submitted as f [facility] ollows: A1, cystic duct margin; A2, telephone sales representative sections neck to body, body to fundus; A3, telephone sales representative sections of body of the gallbladder [...] the liver parenchyma appears black-brown and dusky. Test Lead Application Testing sections are submitted as follows. Section code: [...] and smaller nodules; B13 and B14 , telephone sales representative sections of additional grossly uninvolved liver [...] yellow liver parenchyma with no masses identified. Test Lead Application Testing sections are submitted as follows: cassette FSC1 to FSC3, new margin; C4 and C5, telephone sales representative sections of possible previous resection margin; [...] five cassettes. DH/pl INTRAOPERATIVE FROZEN SECTION DIAGNOSIS: [facility] CONSULTATION B. FSB1, LIVER, SEGMENT 6, PARTIAL HEPATECTOMY: [facility] - POSITIVE FOR MALIGNANCY CONSISTENT WITH CHOLANGIOCARCINOMA CENTER Reported by Dr. Olivier at 12:33 p.m. C. FSC1, LIVER, ADDITIONAL PARENCHYMA FOR FROZEN, PARTIAL HEPATECTOMY: - NEGATIVE FOR MALIGNANCY Reported by Dr. Olivier at 1:33 p.m. MICROSCOPIC DESCRIPTION A-D. Performed. [facility] SPECIAL STUDIES The following special studies were performed on this case and the interpretation is incorporated in the diagnostic report above: [facility] Immunohistochemical stains performed on block B5: [facility] Arginase, CAM5.2, CDX2, CEA, CK7, CK19, CK20, Glypican-3, Hep-Par 1 and MOC- 31. CENTER The immunohistochemistry test was developed and its performance characteristics determined by [facility], Pathology Laboratory. It has not been cleared [...] At Performing Organization Address City/State/Zipcode Phone Number [facility] [address] [place] [address] CENTER ANESTHESIA SPINAL BLOCK (08/14/2018 8:36 AM [...] sitting Prep: Betadine Patient monitoring: heart rate, conveyor monitor and continuous pulse ox Location: L3-4 Injection [...] sitting Prep: Betadine Patient monitoring: heart rate, conveyor monitor and continuous pulse ox Location: L3-4 Injection technique: single-shot Needle Needle type: pencil-tip Needle gauge: 25 G Needle length: 10 cm Assessment Sensory level: T10 Events: cerebrospinal fluid Additional Notes Pt tolerated the procedure well. after 08/05/2018 Insurance Payer Benefit Plan / Subscriber ID Type Phone Address Group BLUE CROSS/BLUE BCBS OS xxxxxxxxxxxx PPO [phone] [address] [employer] [place] [address] (Home) [place] [address] Advance Directives For more information, please contact:[address] [phone] Code Status Date Activated Date Inactivated Comments Full Code 08/14/2018 7:13 AM 08/23/2018 5:59 PM This code status was determined by: Patient
[2019-08-07] MEDS ORDERED: NA CHLORIDE 0.9% 1,000 ML ONE (00:56)
[2019-08-07 01:11] LABS: Protime INR 1.13
[2019-08-07 01:26] LABS: Absolute Lymphocytes (CBC) 0.7 K/uL (0.7-4.9); Basophils % 0.4 % (0-1.3); Hematocrit 27.9 % (39.6-49.0); Lymphocytes % 5.6 % (15.3-44.8); MPV 8.2 fL (7.6-11.3); RBC Red Blood Cell Count 3.41 M/uL (4.33-5.43)
[2019-08-07 02:28] LABS: ALT/SGPT 12 U/L (12-78); AST/SGOT 11 U/L (15-37); Albumin 2.2 g/dL (3.4-5.0); Alkaline Phosphatase 123 U/L (45-117); BUN Blood Urea Nitrogen 14 mg/dL (7-18); Bicarbonate 22 mmol/L (21-32); Bilirubin Direct 0.1 mg/dL (0-0.2); Bilirubin Total 0.4 mg/dL (0.2-1.0); Creatine Phosphokinase 19 U/L (39-308); Glucose Level 105 mg/dL (74-106); Lipase 164 U/L (73-393); Protein, Total 4.8 g/dL (6.4-8.2); Sodium Level 145 mmol/L (136-145); Troponin (Emerg Dept Use Only) < 0.02 ng/mL (0.0-0.045)
[2019-08-07 02:30] LABS: Potassium 2.8 mmol/L (3.5-5.1)
[2019-08-07 03:12] LABS: Anisocytosis 1+; Blood Morphology Comment NOTED (NOT SEEN); Platelet Estimate ADEQ
[2019-08-07 03:16] LABS: Urine Blood NEGATIVE (NEG); Urine Glucose NEGATIVE (NEG); Urine Protein 1+ (NEG); Urine pH 5.5 (5.0-7.0)
[2019-08-07 03:17] LABS: Urine Bacteria <20 /HPF (NONE SEEN); Urine Culture Reflex Order REFLEXED; Urine RBC <5 /HPF (NONE SEEN); Urine Yeast MANY (NONE SEEN)
[2019-08-07] MEDS ORDERED: POTASSIUM 25 MEQ EFFERV TAB ONE (03:56)
[2019-08-07] MEDS ORDERED: POTASSIUM CL SA 10 MEQ TAB PO ONE ×2 (03:59→04:03)
--- NOTE | 2019-08-07 04:24 | ER ---
Nurse's Notes [facility] Name: Seth Oconnor Age: 64 yrs Sex: Male : 1955 Arrival Date: 08/06/2019 Time: 23:56 Bed 16 [facility] MD: Diagnosis: Weakness;Diarrhea, unspecified Presentation: 08/06 23:59 Presenting complaint: EMS states: Called to patient's residence, pt had a fall no LOC, ea family reported pt has been very weak and were concerned he would fall again. 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 Transition of care: patient was not received from another setting of care. Onset of symptoms was August 07, 2019. Risk Assessment: Do you want to hurt yourself or someone else? Patient reports no desire to harm self or others. Initial Sepsis Screen: Does the patient meet any 2 criteria? No. Patient's initial sepsis screen is negative. Does the patient have a suspected source of infection? No. Patient's initial sepsis screen is negative. Care prior to arrival: BGL 129. 23:59 Method Of Arrival: EMS: [facility] 23:59 Acuity: LONNY 3 ea Triage Assessment: 08/07 00:02 General: Appears. ea Historical: - Allergies: 00:05 No Known Allergies; ea - Home Meds: 00:05 tramadol 50 mg Oral tab 1 tab 2 times daily as needed for Pain [Active]; simethicone 80 ea mg Oral chew every 6 hours for Flatulence [Active]; ondansetron 8 mg Oral TbDL 1 tab every 8 hours [Active]; omega-3 acid ethyl esters 1 gram Oral cap 2 caps at bedtime [Active]; metoprolol succinate 25 mg Oral Tb24 1 tab once daily for Hypertension [Active]; allopurinol 100 mg Oral tab 1 tab once daily [Active]; atorvastatin 40 mg Oral tab 1 tab once daily [Active]; dexamethasone 4 mg Oral tab 1 tab once daily [Active]; famotidine 20 mg Oral tab 1 tab 2 times per day [Active]; gabapentin 100 mg Oral cap 2 caps at bedtime [Active]; Flomax 0.4 mg Oral cp24 1 cap once daily [Active]; insulin aspart sliding scale 3 times daily before meals subcutaneous [Active]; Lantus 50units Sub-Q nightly [Active]; Prochlorperazine Maleate Oral [Active]; Compazine 5 mg Oral tab 1 tab every 6 hours for Cancer Chemotherapy-Induced Nausea and Vomiting [Active]; - PMHx: 00:05 Hypertension; Diabetes - IDDM; Cancer; Bile duct carcinoma; ea - Immunization history:: Adult Immunizations up to date. - Social history:: Smoking status: Patient/guardian denies using tobacco. - Ebola Screening: : No symptoms or risks identified at this time. Screenin:00 Abuse screen: Denies threats or abuse. Nutritional screening: No deficits noted. ea Tuberculosis screening: No symptoms or risk factors identified. Fall Risk Fall in past 12 months (25 points). Assessment: 00:30 General: Appears in no apparent distress. Behavior is calm, cooperative, appropriate wh for age. Pain: Denies pain. Neuro: Level of Consciousness is awake, alert, obeys commands, Oriented to person, place, time, situation, Appropriate for age. Cardiovascular: Heart tones S1 S2. Cardiovascular: Edema pitting to left ankle and right ankle. Respiratory: Airway is patent Respiratory effort is even, unlabored, Respiratory pattern is regular, symmetrical, Breath sounds are clear bilaterally. GI: Abdomen is flat, non-distended, Bowel sounds present X 4 quads. Abd is soft and non tender X 4 quads. : No signs and/or symptoms were reported regarding the genitourinary system. EENT: No signs and/or symptoms were reported regarding the EENT system. Derm: Skin is intact, is healthy with good turgor, Skin is pink, warm \T\ dry. normal. Musculoskeletal: Circulation, motion, and sensation intact. Reports generalized weakness. 01:23 Reassessment: Patient appears in no apparent distress at this time. No changes from previously documented assessment. Patient and/or family updated on plan of care and expected duration. Pain level reassessed. Patient is alert, oriented x 3, equal unlabored respirations, skin warm/dry/pink. 02:30 Reassessment: Critical lab: K of 2.8 provider notified. aa1 02:39 Reassessment: Patient appears in no apparent distress at this time. No changes from previously documented assessment. Patient and/or family updated on plan of care and expected duration. Pain level reassessed. Patient is alert, oriented x 3, equal unlabored respirations, skin warm/dry/pink. 03:35 Reassessment: Patient appears in no apparent distress at this time. No changes from previously documented assessment. Patient and/or family updated on plan of care and expected duration. Pain level reassessed. Patient is alert, oriented x 3, equal unlabored respirations, skin warm/dry/pink. Patient denies pain at this time. 04:39 Reassessment: Patient appears in no apparent distress at this time. No changes from previously documented assessment. Patient and/or family updated on plan of care and expected duration. Pain level reassessed. Patient is alert, oriented x 3, equal unlabored respirations, skin warm/dry/pink. Patient states feeling better. Vital Signs: 00:06 BP 112 / 62; Pulse 101; Resp 20; Temp 97.9; Pulse Ox 100% on R/A; Weight 78.47 kg; ea Height 5 ft. 10 in. (177.80 cm); 01:24 BP 132 / 72; Pulse 96; Resp 18; Pulse Ox 100% ; wh 02:35 BP 131 / 69; Pulse 93; Resp 18; Pulse Ox 100% on R/A; wh 03:30 BP 133 / 66; Pulse 91; Resp 18; Pulse Ox 100% on R/A; wh 04:30 BP 117 / 73; Pulse 100; Resp 18; Pulse Ox 100% on R/A; wh 00:06 Body Mass Index 24.82 (78.47 kg, 177.80 cm) ea ED Course: 08/06 23:56 Patient arrived in ED. em1 23:57 Greg Crespo MD is Attending Physician. 08/07 00:00 Triage completed. ea 00:06 Arm band placed on right wrist. Patient placed in an exam room, on a stretcher, on ea pulse oximetry. 00:07 Patient has correct armband on for positive identification. Bed in low position. Call ea light in reach. Side rails up X2. 00:14 Curt Serrano is Primary Nurse. 00:58 Accessed Port-a-Cath. using 20G Nexia IV catheter ,sterile technique, Clean \T\ dry. ea Dressing intact. Good blood return. Flushes easily. 01:23 Chest Single View XRAY In Process Unspecified. EDMS 01:39 X-ray completed. Portable x-ray completed in exam room. Patient tolerated procedure kw well. 04:38 IV discontinued, intact, bleeding controlled, No redness/swelling at site. Pressure ea dressing applied. 04:41 No provider procedures requiring assistance completed. Administered Medications: 01:10 Drug: NS 0.9% 1000 ml Route: IV; Rate: 1 bolus; Site: Port-a-cath; ea 02:39 Follow up: Response: No adverse reaction; IV Status: Completed infusion 04:02 Not Given (Patient Refused): Potassium Effervescent Tablet 50 mEq PO once; dissolve in 4 ounces of water or juice 04:03 Drug: Potassium Chloride 50 mEq Route: PO; 04:40 Follow up: Response: No adverse reaction 04:37 Drug: HEParin Flush 500 units Route: IVP; Site: Port-a-cath; ea 04:40 Follow up: Response: No adverse reaction Point of Care Testing: Blood Glucose: 01:13 Blood Glucose: 127 mg/dL; Ranges: Outcome: 04:20 Discharge ordered by . 04:41 Discharged to home ambulatory. 04:41 Condition: good 04:41 Discharge instructions given to patient, Instructed on discharge instructions, follow up and referral plans. POC Weakness \T\ Diarrhea Demonstrated understanding of instructions, follow-up care, POC 04:42 Patient left the ED. Signatures: Dispatcher [employer] EDMS Dolores Riggs RN RN aa1 Martinez, Eric em1 Radha Angela Elena, RN RN ea Habalo, Winsy Greg Crespo MD MD Corrections: (The following items were deleted from the chart) 00:01 08/06 23:59 Presenting complaint: EMS states: Called to patient's residence, pt had a ea fall no LOC, family reported pt has been very weak and were concerned he would fall again. ea 08/07 01:04 00:58 Accessed Port-a-Cath. using accessed w/ #19 Rogel needle, ,sterile technique, ea Clean \T\ dry. Dressing intact. Good blood return. Flushes easily. ea
--- NOTE | 2019-08-07 04:26 | EDPHYS ---
Physician Documentation [facility] Name: Seth Oconnor Age: 64 yrs Sex: Male : 1955 Arrival Date: 08/06/2019 Time: 23:56 Bed 16 Private MD: ED Physician Greg Crespo HPI: 08/07 04:09 This 64 yrs old Male presents to ER via EMS with complaints of Weakness, Fall. gs 04:09 Onset: The symptoms/episode began/occurred today. Context: occurred at home. Associated gs signs and symptoms: Pertinent positives: altered mental status, dizziness, headache, . Severity of symptoms: At their worst the symptoms were moderate in the emergency department the symptoms have improved moderately. The patient has experienced similar episodes in the past, a few times. The patient has been recently seen by a physician: berto. Historical: - Allergies: 00:05 No Known Allergies; ea - Home Meds: 00:05 tramadol 50 mg Oral tab 1 tab 2 times daily as needed for Pain [Active]; simethicone 80 ea mg Oral chew every 6 hours for Flatulence [Active]; ondansetron 8 mg Oral TbDL 1 tab every 8 hours [Active]; omega-3 acid ethyl esters 1 gram Oral cap 2 caps at bedtime [Active]; metoprolol succinate 25 mg Oral Tb24 1 tab once daily for Hypertension [Active]; allopurinol 100 mg Oral tab 1 tab once daily [Active]; atorvastatin 40 mg Oral tab 1 tab once daily [Active]; dexamethasone 4 mg Oral tab 1 tab once daily [Active]; famotidine 20 mg Oral tab 1 tab 2 times per day [Active]; gabapentin 100 mg Oral cap 2 caps at bedtime [Active]; Flomax 0.4 mg Oral cp24 1 cap once daily [Active]; insulin aspart sliding scale 3 times daily before meals subcutaneous [Active]; Lantus 50units Sub-Q nightly [Active]; Prochlorperazine Maleate Oral [Active]; Compazine 5 mg Oral tab 1 tab every 6 hours for Cancer Chemotherapy-Induced Nausea and Vomiting [Active]; - PMHx: 00:05 Hypertension; Diabetes - IDDM; Cancer; Bile duct carcinoma; ea - Immunization history:: Adult Immunizations up to date. - Social history:: Smoking status: Patient/guardian denies using tobacco. - Ebola Screening: : No symptoms or risks identified at this time. ROS: 04:09 All other systems are negative. gs Exam: 04:09 Head/Face: Normocephalic, atraumatic. Eyes: Pupils equal round and reactive to light, gs extra-ocular motions intact. Lids and lashes normal. Conjunctiva and sclera are non-icteric and not injected. Cornea within normal limits. Periorbital areas with no swelling, redness, or edema. ENT: Nares patent. No nasal discharge, no septal abnormalities noted. Tympanic membranes are normal and external auditory canals are clear. Oropharynx with no redness, swelling, or masses, exudates, or evidence of obstruction, uvula midline. Mucous membranes moist. Neck: Trachea midline, no thyromegaly or masses palpated, and no cervical lymphadenopathy. Supple, full range of motion without nuchal rigidity, or vertebral point tenderness. No Meningismus. Chest/axilla: Normal chest wall appearance and motion. Nontender with no deformity. No lesions are appreciated. Cardiovascular: Regular rate and rhythm with a normal S1 and S2. No gallops, murmurs, or rubs. Normal PMI, no JVD. No pulse deficits. Respiratory: Lungs have equal breath sounds bilaterally, clear to auscultation and percussion. No rales, rhonchi or wheezes noted. No increased work of breathing, no retractions or nasal flaring. Abdomen/GI: Soft, non-tender, with normal bowel sounds. No distension or tympany. No guarding or rebound. No evidence of tenderness throughout. Back: No spinal tenderness. No costovertebral tenderness. Full range of motion. Skin: Warm, dry with normal turgor. Normal color with no rashes, no lesions, and no evidence of cellulitis. MS/ Extremity: Pulses equal, no cyanosis. Neurovascular intact. Full, normal range of motion. Neuro: Awake and alert, GCS 15, oriented to person, place, time, and situation. Cranial nerves II-XII grossly intact. Motor strength 5/5 in all extremities. Sensory grossly intact. Cerebellar exam normal. Normal gait. 04:09 Constitutional: The patient appears alert, awake. 04:09 Head/face: Noted is abrasion(s), that are mild, of the old. 04:09 ECG was reviewed by the Attending Physician. Vital Signs: 00:06 BP 112 / 62; Pulse 101; Resp 20; Temp 97.9; Pulse Ox 100% on R/A; Weight 78.47 kg; ea Height 5 ft. 10 in. (177.80 cm); 01:24 BP 132 / 72; Pulse 96; Resp 18; Pulse Ox 100% ; wh 02:35 BP 131 / 69; Pulse 93; Resp 18; Pulse Ox 100% on R/A; wh 03:30 BP 133 / 66; Pulse 91; Resp 18; Pulse Ox 100% on R/A; wh 04:30 BP 117 / 73; Pulse 100; Resp 18; Pulse Ox 100% on R/A; wh 00:06 Body Mass Index 24.82 (78.47 kg, 177.80 cm) ea MDM: 00:09 Patient medically screened. 04:09 Data reviewed: vital signs, nurses notes, lab test result(s), EKG, radiologic studies. Counseling: I had a detailed discussion with the patient and/or guardian regarding: the historical points, exam findings, and any diagnostic results supporting the discharge/admit diagnosis, lab results, radiology results, the need for outpatient follow up. Response to treatment: the patient's symptoms have markedly improved after treatment, the patient's condition has returned to base line, walked without difficulty. 04:20 ED course: gave instructions for follow up for stool culture results. 08/07 00:15 Order name: Basic Metabolic Panel; Complete Time: 03:39 08/07 00:15 Order name: Blood Culture Adult (2) 08/07 00:15 Order name: CBC with Diff; Complete Time: 03:39 08/07 00:15 Order name: CPK; Complete Time: 03:39 08/07 00:15 Order name: Lactate; Complete Time: 01:48 08/07 00:15 Order name: LFT's; Complete Time: 03:39 08/07 00:15 Order name: Lipase; Complete Time: 03:39 08/07 00:15 Order name: Procalcitonin; Complete Time: 02:05 08/07 00:15 Order name: Protime (+inr); Complete Time: 01:48 08/07 00:15 Order name: Troponin (emerg Dept Use Only); Complete Time: 03:39 08/07 00:15 Order name: Urine Microscopic Only; Complete Time: 03:39 08/07 00:15 Order name: Ova And Parasites 08/07 00:15 Order name: Stool Culture 08/07 00:15 Order name: CDIFF 08/07 00:15 Order name: Chest Single View XRAY 08/07 00:15 Order name: Accucheck; Complete Time: 01:13 08/07 00:15 Order name: Cardiac monitoring; Complete Time: 00:28 08/07 00:15 Order name: EKG - Nurse/Tech; Complete Time: 00:28 08/07 00:15 Order name: IV Saline Lock - Large Bore; Complete Time: 00:28 08/07 00:15 Order name: Labs collected and sent; Complete Time: 00:56 08/07 00:15 Order name: O2 Per Protocol; Complete Time: 00:28 08/07 00:15 Order name: O2 Sat Monitoring; Complete Time: 00:28 08/07 01:18 Order name: Glucose, Ancillary Testing; Complete Time: 01:48 EDIA 08/07 01:25 Order name: Urine Dipstick--Ancillary (enter results); Complete Time: 03:39 em1 08/07 02:06 Order name: Manual Differential; Complete Time: 03:39 EDIA 08/07 03:23 Order name: Urine Culture [facility] 08/07 00:15 Order name: Urine Dipstick-Ancillary (obtain specimen); Complete Time: 01:14 gs EC:09 Rate is 100 beats/min. Rhythm is regular. NH interval is normal. QRS interval is gs normal. T waves are Normal. No ST changes noted. Clinical impression: NSR w/ Non-specific ST/T Changes. Interpreted by me. Administered Medications: 01:10 Drug: NS 0.9% 1000 ml Route: IV; Rate: 1 bolus; Site: Port-a-cath; ea 02:39 Follow up: Response: No adverse reaction; IV Status: Completed infusion wh 04:02 Not Given (Patient Refused): Potassium Effervescent Tablet 50 mEq PO once; dissolve in wh 4 ounces of water or juice 04:03 Drug: Potassium Chloride 50 mEq Route: PO; wh 04:40 Follow up: Response: No adverse reaction wh 04:37 Drug: HEParin Flush 500 units Route: IVP; Site: Port-a-cath; 04:40 Follow up: Response: No adverse reaction Point of Care Testing: Blood Glucose: 01:13 Blood Glucose: 127 mg/dL; Ranges: Critical Glucose Levels:Adult <50 mg/dl or >400 mg/dl <40 mg/dl or >180 mg/dl Disposition: 08/07/19 04:20 Discharged to Home. Impression: Weakness, Diarrhea, unspecified. - Condition is Stable. - Discharge Instructions: Diarrhea, Adult, Weakness, Fatigue. - Medication Reconciliation Form, Thank You Letter, Antibiotic Education, Prescription Opioid Use form. - Follow up: Private Physician; When: 1 - 2 days; Reason: Re-evaluation by your physician. Signatures: Dispatcher [employer] Alesia Cox RN RN ea [place], Winsy Greg Crespo MD MD gs Corrections: (The following items were deleted from the chart) 04:42 04:20 08/07/2019 04:20 Discharged to Home. Impression: Weakness; Diarrhea, unspecified. Condition is Stable. Forms are Medication Reconciliation Form, Thank You Letter, Antibiotic Education, Prescription Opioid Use. Follow up: Private Physician; When: 1 - 2 days; Reason: Re-evaluation by your physician. gs
[2019-08-07] MEDS ORDERED: HEPARIN 500 UNIT/5 ML SYR IV ONE (04:34)
[2019-08-07 06:58] VITALS: TEMP 97.9; O2SAT 100
[2019-08-07 07:03] VITALS: BP 117/73
--- NOTE | 2019-08-07 08:01 | RAD REPORT ---
EXAM DESCRIPTION: RAD - Chest Single View - 08/07/2019 12:35 am CLINICAL HISTORY: MALAISE Chest pain. COMPARISON: Chest Single View dated 07/21/2019; Chest Single View dated 06/17/2019 FINDINGS: Portable technique limits examination quality. The lungs are grossly clear. The heart is normal in size. No displaced fractures. Right port catheter has tip in SVC. IMPRESSION: No acute intrathoracic process suspected.
--- NOTE | 2019-08-08 10:36 | EKG ---
Test Date: 2019-08-07 Test Time: 00:25:27 Cost Recorder: NILS MEASUREMENT RESULTS: Intervals: Rate: 100 WY: 152 QRSD: 80 QT: 380 QTc: 490 [place]: P: 42 WY: 152 QRS: 49 T: 77 INTERPRETIVE STATEMENTS: Sinus rhythm with premature atrial complexes Septal infarct, age undetermined Abnormal ECG Compared to ECG 07/21/2019 22:38:25 Myocardial infarct finding now present Sinus arrhythmia no longer present ST (T wave) deviation no longer present Electronically Signed On 08-08-19 10:32:06 CDT by Stephen Kumar
== END 2019-08-07 04:42 | disposition home or self-care (01) ==
LOC: ER 23:53
DX: R53.1 Weakness (principal); R19.7 Diarrhea, unspecified; I10 Essential (primary) hypertension; E11.9 Type 2 diabetes mellitus without complications; Z85.09 Personal history of malignant neoplasm of other digestive organs
CPT/HCPCS: 96361; 93005; 87040 ×2; 87088; 87045; 85025; 87086; 80048; 36415; 82550; 87177; 85610; 82962; 80076; 87046; 83605; 87493; 87209; 87077; 87186; 84484; 83690; 84145; 71045; 96374; 99284; J1642; J7030; 81003; 81015

== ENCOUNTER 2019-08-10 20:05 | Observation (INO) | payer BC ==
--- OUTSIDE RECORDS SUMMARY | 2019-08-10 20:11 | XMS REPORT | Clinical Summary ---
:1955 Author Organization [facility] [employer] Address [address] [place] [address] Care Team Providers Name Role Phone Tesha [...] a day as needed for moderate pain. OLANZapine zydis Take 1 tablet 30 tablet [...] prochlorperazine Take 1 tablet 30 tablet 0 Discontinued (COMPAZINE) 5 MG (5 mg total) 9 019 (Reorder) tablet by mouth every 6 (six) hours as needed for nausea or vomiting for up to 30 days. famotidine (PEPCID) Take 1 tablet 60 tablet 0 Discontinued 20 MG tablet (20 mg total) 9 019 (Stop Taking at by mouth 2 Discharge) (two) times a day for 30 days. simethicone Chew 1 tablet 30 tablet 0 (MYLICON) 80 MG (80 mg total) 9 019 chewable tablet every 6 (six) hours as needed for flatulence for up to 30 days. dexAMETHasone Take 1 tablet 30 tablet 0 Discontinued (DECADRON) 4 MG (4 mg total) [...] (two) times a day for 8 days. loperamide (IMODIUM) Take 1 capsule 150 capsule 0 2 mg capsule (2 mg total) 9 019 by mouth every 4 (four) hours while awake for 30 days. Until no diarrhea for 12 hours - over the counter dronabinol (MARINOL) Take 1 capsule 60 capsule 0 Discontinued 5 MG capsule (5 mg total) 9 019 (Stop Taking at by mouth 2 Discharge) (two) times a day before meals for 30 days. metFORMIN Take 1 tablet 60 tablet 0 (GLUCOPHAGE) 500 mg (500 mg total) 9 019 tablet by mouth 2 (two) times a day with meals for 30 days. furosemide (LASIX) Take 1 tablet 60 tablet 0 20 mg tablet (20 mg total) 9 [...] Encounters Date Type Specialty Care Team Description 08/08/2019 Hospital Encounter Radiology Herrera, Obie, Cholangiocarcinoma (HCC ) 08/01/2019 Hospital Encounter Radiology Obie Herrera, No [...] Obie Herrera MD 07/31/2019 Orders Only Oncology Malorie Cholangiocarcinoma (HCC) HENOK Muse (Primary Dx) 07/31/2019 Orders Only Oncology Shawn Slaughter (HCC) LUIS Roman (Primary Dx) 07/30/2019 Office Visit Oncology Obie Herrera, Cholangiocarcinoma (HCC) ( Primary Dx); BECCA (acute kidney injury) (HCC) 07/30/2019 Infusion Oncology Obie Herrera Cholangiocarcinoma (HCC) (Primary Dx) 07/30/2019 Telephone Oncology Obie Herrera MD 07/30/2019 Telephone Oncology Obie Herrera MD 07/29/2019 Telephone Oncology Obie Herrera MD 07/28/2019 Orders Only Oncology Shawn Espana (HCC) HENOK Muse (Primary Dx) 07/28/2019 Telephone [...] RN 07/03/2019 Orders Only Oncology Briseida Thacker, [facility] 06/24/2019 Telephone Oncology Obie Herrera MD 06/21/2019 - Hospital Encounter Oncology Thor, Cholangiocarcinoma (HCC) ( Primary Dx); 07/08/2019 MD Marcela C. difficile diarrhea 06/20/2019 Intake Access N/A 06/20/2019 Telephone Oncology Maryjane Schultz RN 06/19/2019 Telephone Oncology Obie Herrera MD 06/16/2019 Telephone Oncology Obie Herrera Cholangiocarcinoma (HCC) (Primary Dx) 06/12/2019 Orders Only Oncology Obie Herrera MD 06/11/2019 Orders Only Oncology Briseida Thacker, [facility] 05/27/2019 - Hospital Encounter Oncology Samshea Cholangiocarcinoma (HCC) ( Primary Dx); 06/15/2019 MD Franki BECCA (acute kidney injury) (HCC) 05/27/2019 Orders Only General Internal Jim Medicine MD Franki 01/07/2019 Hospital Encounter Radiology Moshe Srinivasan MD 01/07/2019 Transcribe Orders Access Moshe Srinivasan (Primary Dx) David Ortega MD after 08/09/2018 Immunizations Name Administration Dates Next Due FLUCELVAX [...] - - Weight 78.5 kg (173 lb) 08/08/2019 11:31 AM CDT Height 177.8 cm (5' 10") 08/08/2019 11:31 AM CDT Body Mass Index 24.82 08/08/2019 11:31 AM CDT Plan of Treatment Date Type Specialty Care Team Description 08/13/2019 Infusion Oncology Obie Herrera MD [address] [place] [address] [phone] 08/13/2019 Office Visit Oncology Obie Herrera MD [address] [place] [address] [phone] 08/15/2019 Nurse Only Oncology Obie Herrera MD [address] [place] [address] [phone] 08/27/2019 Infusion Oncology Obie Herrera MD [address] [place] [address] [phone] 08/29/2019 Nurse Only Oncology Obie Herrera MD [address] [place] [address] [phone] Health Maintenance Due Date Last Done Comments COLONOSCOPY SCREENING 2005 SHINGLES VACCINES (#1) 2005 INFLUENZA VACCINE Completed 08/01/2019, 10/18/2018 Implants Implanted Type Area Walking Dragline Operator Device Identifier Shelf Expiration Model / Date Serial / Lot Port A Catheter Procedures Procedure Name Priority Date/Time Associated Diagnosis Comments CT CHEST WO CONTRAST Routine 08/08/2019 Cholangiocarcinoma (HCC) Results for ABDOMEN WO CONTRAST 2:02 PM CDT this procedure PELVIS WO CONTRAST are in the results section. US ABDOMINAL Routine 08/02/2019 Results for PARACENTESIS [...] procedure SPECTRAL COLOR DOPPLER are in the (06925) results section. MANUAL DIFFERENTIAL Routine 08/02/2019 Results [...] procedure SPECTRAL COLOR DOPPLER are in the (93252) results section. LACTIC ACID LEVEL, Timed 05/30/2019 [...] Routine 01/07/2019 Cough Results for 4:52 PM MILITARY PILOT this procedure are in the results section. 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 The lack of intravenous contrast reduces the sensitivity of detecting solid organ disease. Sagittal and coronal computerized reformatted images were obtained. CT scans are performed using radiation dose reduction techniques. Technical factors are evaluated and adjusted to ensure appropriate moderation of exposure. Automated dose management technology is applied to adjust radiation exposure while achieving a diagnostic quality image COMPARISON:Outside films 12 February 2018 Chest: There is a large right posterior pleural effusion.There is overlying atelectatic lung at the lung base.There is no pulmonary parenchymal mass.Left lung perry demonstrate no mass.There is a small basilar pleural effusion only. There are increased numbers of small of lymph nodes in the mediastinum.Thoracic aorta and pulmonary artery are of normal caliber. There is coronary artery calcification. Abdomen: Scans to the abdomen demonstrate a large amount of ascites especially in the left retroperitoneum. Examination is hampered by lack of intravenous contrast material.There are postoperative changes in the liver with surgical clips noted around the jamel hepatis.There are multiple vague hypodensities in both the right and left lobe of the liver worrisome for possible metastatic disease.Correlation with MRI scan is recommended.In the right lobe of the liver 2 lesions measure approximately 1.5 cm each and in the left lobe of the lesion is more vaguely defined at about 1.4 cm.Spleen has granulomatous calcifications only.The pancreas was atrophic the adrenal glands are not enlarged.Kidneys demonstrate no definite stone mass or obstruction. Abdominal aorta was of normal caliber to small scattered periaortic lymph nodes.There is edema within the omentum suggesting the possibility of neoplastic infiltration there is also edema in the mesentery of bowel. There is no evidence of bowel obstruction. Pelvis: There is dependent ascites in the pelvis.There is no definite pelvic mass.There appear to be small pelvic sidewall lymph nodes not clearly pathologic sigmoid colon was unremarkable. 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 The lack of intravenous contrast reduces the sensitivity of detecting solid organ disease. Sagittal and coronal computerized reformatted images were obtained. CT scans are performed using radiation dose reduction techniques. Technical factors are evaluated and adjusted to ensure appropriate moderation of exposure. Automated dose management technology is applied to adjust radiation exposure while achieving a diagnostic quality image COMPARISON: Outside films 12 February 2018 Chest: There is a large right posterior pleural effusion. There is overlying atelectatic lung at the lung base. There is no pulmonary parenchymal mass. Left lung perry demonstrate no mass. There is a small basilar pleural effusion only. There are increased numbers of small of lymph nodes in the mediastinum. Thoracic aorta and pulmonary artery are of normal caliber. There is coronary artery calcification. Abdomen: Scans to the abdomen demonstrate a large amount of ascites especially in the left retroperitoneum. Examination is hampered by lack of intravenous contrast material. There are postoperative changes in the liver with surgical clips noted around the jamel hepatis. There are multiple vague hypodensities in both the right and left lobe of the liver worrisome for possible metastatic disease. Correlation with MRI scan is recommended. In the right lobe of the liver 2 lesions measure approximately 1.5 cm each and in the left lobe of the lesion is more vaguely defined at about 1.4 cm. Spleen has granulomatous calcifications only. The pancreas was atrophic the adrenal glands are not enlarged. Kidneys demonstrate no definite stone mass or obstruction. Abdominal aorta was of normal caliber to small scattered periaortic lymph nodes. There is edema within the omentum suggesting the possibility of neoplastic infiltration there is also edema in the mesentery of bowel. There is no evidence of bowel obstruction. Pelvis: There is dependent ascites in the pelvis. There is no definite pelvic mass. There appear to be small pelvic sidewall lymph nodes not clearly pathologic sigmoid colon was unremarkable. 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 Specimen Narrative Performed At EXAMINATION:US ABDOMINAL [facility] CLINICAL HISTORY: ASCITES TECHNIQUE: The procedure's risks, benefits, and alternatives were discussed with the patient and written, informed consent was obtained. Using ultrasound guidance, a site for needle entry was selected and the overlying skin was prepped and draped in the usual sterile fashion. 1% buffered lidocaine was used for local anesthesia. A 5 Palestinian one-step catheter was inserted into the peritoneal cavity and 2.9 L of peritoneal fluid was removed. The fluid was sent to the lab for the requested studies.The patient tolerated the procedure without difficulty and was discharged to the radiology recovery area for monitoring prior to discharge. EBL: None. COMPLICATIONS: None. SPECIMENS: As above. ASSISTANTS: None. IMPRESSION: Uncomplicated ultrasound-guided diagnostic and therapeutic paracentesis. [facility]-[id number] Procedure Note [facility], Radiology Results Incoming - 08/02/2019 6:18 PM [...] was used for local anesthesia. A 5 Palestinian one-step catheter was inserted into the peritoneal cavity and 2.9 L of peritoneal fluid was removed. The fluid was sent to the lab for the requested studies. The patient tolerated the procedure without difficulty and was discharged to the radiology recovery area for monitoring prior to discharge. EBL: None. COMPLICATIONS: None. SPECIMENS: As above. ASSISTANTS: None. IMPRESSION: Uncomplicated ultrasound-guided diagnostic and therapeutic paracentesis. [facility]-[id number] Performing Organization Address City/[facility] Centercode Phone Number [facility] [address] [place] [address] Cell count and differential, body fluid (08/02/2019 3:30 PM CDT)Only the most recent of2 resultswithin the time period is included. [facility] fluid type Ascitic [facility] Color, fluid Pale yellow [facility] Appearance, fluid Hazy [facility] RBC, fluid SEE /CMM [facility] COMMENTComment: HOSPITAL 2+ (500 - 10,000 RBC/CMM) Nucleated cells, 163 /CMM [facility] Fluid mononuclear See Diff [facility] Neutrophils, fluid 2 % [facility] Lymphocytes, fluid 79 % [facility] Mesothelial cells, 4 % [facility] Macrophages, fluid 11 % [facility] Plasma cells, fluid 4 % [facility] Specimen Fluid Narrative Performed At ASCITES [facility] DEPARTMENT OF PATHOLOGY AND GENOMIC MEDICINE Performing Organization Address City/[facility]/Zipcode Phone Number [facility] DEPARTMENT OF PATHOLOGY AND [address] [place] [address] GENOM[address] MED[address] [address] Protein, misc fluid (08/02/2019 3:30 PM CDT) Fluid type Ascitic [facility] Protein, fluid 2.2 g/dL [facility] Comment: HOSPITAL The reference interval(s) and other method performance specifications have not been established for this body fluid. The test results must be integrated into the clinical context for interpretation. Specimen Fluid Narrative Performed At [facility] DEPARTMENT OF PATHOLOGY AND [facility] Performing Organization Address City/[facility] Centercode Phone Number [facility] DEPARTMENT OF PATHOLOGY AND [address] [place] [address] Glucose level, misc fluid (08/02/2019 3:30 PM CDT) [facility] Signature Fluid type [facility] Glucose, fluid 94 mg/dL [facility] Comment: HOSPITAL The reference interval(s) and other method performance specifications have not been established for this body fluid. The test results must be integrated into the clinical context for interpretation. Specimen Fluid Narrative Performed At [facility] DEPARTMENT OF PATHOLOGY AND [facility] Performing Organization Address City/[facility] Centercode Phone Number [facility] DEPARTMENT OF PATHOLOGY AND [address] [place] [address] Albumin, misc fluid (08/02/2019 3:30 PM CDT) Pathologist [facility] Fluid type [facility] Albumin, fluid 1.3 g/dL [facility] Comment: HOSPITAL The reference interval(s) and other method performance specifications have not been established for this body fluid. The test results must be integrated into the clinical context for interpretation. Specimen Fluid Narrative Performed At [facility] DEPARTMENT OF PATHOLOGY AND [facility] Performing Organization Address City/[facility] Centercovt Phone Number [facility] DEPARTMENT OF PATHOLOGY AND [address] [place] [address] Us carotid duplex (08/02/2019 1:44 PM CDT) Specimen Narrative Performed At [facility] Vascular Ultrasound Laboratory Carotid Artery Duplex Report [address] [facility], [facility] [address], [place] [address] For quality improvement coordinator purposes, the categorization of the degree of the stenosis of this exam is based on criteria described in the IAC carotid stenosis grading white paper( www.intersocietal.org/Vascular) and Phylicia Salinas., Kameron Esparza., et al. Carotid artery stenosis: mckeon-scale and Doppler US diagnosis--Society of Radiologists in Ultrasound Consensus Conference. Radiology. 2003 Sep; 229(2):340-6. Pat.Name:CLARICE MEJIA Pat.ID:[id number] .Date: 08/02/2019 Refer.MD:JAMES GLEZ MD Exam Time: 1:12:00 PMStudy Type:Carotid Height:70inWeight: 173lb BSA: 1.96 m2 DOBAge:1955,64Y Sex: MALESonogrphr: Juan Ireland RVT, [facility] [place] Pat. Stat.:Inpatient Room:[address] TapeVol: YINKA, CPT - 4: 36603 Echo Event ID:[id number] Order ID:[id number] Reason for Study:Syncope. PMH of DM2, HTN, [...] Signed 08/02/2019 01:59 PM Neo Browne MD, VI Procedure Note Interface, Radiology Results In - 08/02/2019 2:00 PM CDT Vascular Ultrasound Laboratory Carotid Artery Duplex Report [address] [facility], [place] [address], [place] [address] For quality improvement coordinator purposes, the categorization of the degree of the stenosis of this exam is based on criteria described in the IAC carotid stenosis grading white paper( www.intersocietal.org/Vascular) and Phylicia Salinas., Kameron Esparza., et al. Carotid artery stenosis: mckeon-scale and Doppler US diagnosis--Society of Radiologists in Ultrasound Consensus Conference. Radiology. 2003 Sep; 229(2):340-6. Pat.Name: CLARICE MEJIA Pat.ID: [id number] St.Date: 08/02/2019 Refer.MD: JAMES GLEZ MD Exam Time: 1:12:00 PM Study Type:Carotid Height: 70in Weight: 173lb BSA: 1.96 m2 Age: 3 1955,64Y Sex: MALE Sonogrphr: Juan Ireland RVT, Pat. Stat.:Inpatient Room: [address] Vol: MK, CPT - 4: [address]2415 Echo Event ID:[id number] Order ID: [id number] Reason for Study:Syncope. PMH of DM2, HTN, [...] Neo Browne MD, RPVI Performing Organization Address [facility] Centercovt Phone Number [facility] [address] [place] [address] POC glucose (08/02/2019 9:15 AM CDT)Only the most recent of159 resultswithin the time period is included. POC glucose 120 (H) 65 - 99 mg/dL [facility] Comment: HOSPITAL [facility] Notified RN Meter ID: [id number] Cloth Printing Back Tender: Andre Lebron Specimen Performing Organization Address [facility] Phone Number [facility] DEPARTMENT OF PATHOLOGY AND [address] [place] [address] GENOM[address] MED[address] [address] Echocardiogram complete w contrast and 3D if needed (08/02/2019 8:10 AM CDT) Specimen Narrative Performed At [facility] Echocardiography Report [address] [place] [address] Pat.Name:CLARICE MEJIA Pat.ID:[id number] .Date: 08/02/2019 Refer.MD:JAMES GLEZ MD Exam Time: 7:36:00 AMStudy Type:Routine Echo Height:70inWeight: 173lb BSA: 1.96 m2 DOBAge:1955,64Y Sex: MALEBP:111/61 HR:95 bpm Sonogrphr: DOMENICA [place] Pat. Stat.:Inpatient Room:[facility] Study Status:Final Echo Event ID:[id number] Order ID:[id number] Reason for Study:Lightheadedness/ Presyncope/Syncope - Syncope when [...] PA systolic pressure. MEASUREMENTS: 2D Parasternal [place] LVOT 2.2 cmLA Ds3.6 cm LVIDd4.1 cmIndex2.1 [...] LVOT TVI18.5 cmLVOT CI3.1 l/m/m2 LVOT [id number] bhglLJ41 bpm LVOT SV 64.1 ml Signed 08/02/2019 09:48 AM Meli Arambula M.D. Procedure Note Interface, Radiology Results In - 08/02/2019 9:49 AM CDT Echocardiography Report [address] [place] [address] Pat.Name: CLARICE MEJIA.ID: [id number] .Date: 08/02/2019 Refer.MD: JAMES GLEZ MD Exam Time: 7:36:00 AM Study Type:Routine Echo Height: 70in Weight: 173lb BSA: 1.96 m2 Age: 3 1955,64Y Sex: MALE BP: 111/61 HR: 95 bpm Sonogrphr: DOMENICA [place] Pat. Stat.:Inpatient Room: [facility] Study Status:Final Echo Event ID:[id number] Order ID: [id number] Reason for Study:Lightheadedness/ Presyncope/Syncope - Syncope when [...] PA systolic pressure. MEASUREMENTS: 2D Parasternal [place] LVOT 2.2 cm LA Ds 3.6 cm [...] M.D. Performing Organization Address City/State/Zipcode Phone Number [facility] [address] [place] [address] Estimated GFR (08/02/2019 6:45 AM CDT)Only the most recent of43 resultswithin the time period is included. Pathologist [facility] Estimated GFR 74 mL/min/1.73 [facility] Comment: m2 HOSPITAL CatergoryUnitsInterpretation G1 >=90 Normal or high G2 60-89Mildly decreased N4e53-15Ohfotb to moderately decreased I4u58-66Txyrnvvqzs to severely decreased G4 15-29Severely decreased G5 <15Kidney failure The eGFR was calculated using the Chronic Kidney Disease Epidemiology Collaboration (CKD-EPI) equation. Interpretation is based on recommendations of the National Kidney Foundation-Kidney Disease Outcomes Quality Initiative (NKF-KDOQI) published in 2014. Specimen Plasma specimen Performing Organization Address City/[facility] Centercovt Phone Number [facility] DEPARTMENT OF PATHOLOGY AND [address] [place] [address] Manual differential (08/02/2019 6:45 AM CDT)Only the most recent of20 resultswithin the time period is included. [facility] Manual differential PERFORMED [facility] Neutrophils 94.0 (H) 39.0 - 69.0 % [facility] Lymphocytes 6.0 (L) 25.0 - 45.0 % [facility] Monocytes 0.0 0.0 - 10.0 % [facility] Eosinophils 0.0 0.0 - 5.0 % [facility] Basophils 0.0 0.0 - 1.0 % [facility] Metamyelocytes 0 % [facility] Promyelocytes 0 % [facility] Platelet slide review Kelly adequate [facility] Anisocytosis Moderate [facility] Ovalocytes Moderate [facility] Derby cells Moderate (A) [facility] Specimen Performing Organization Address City/[facility]/Zipcode Phone Number [facility] DEPARTMENT OF PATHOLOGY AND [address] [place] [address] Prothrombin time with INR (08/02/2019 6:45 AM CDT)Only the most recent of6 resultswithin the time period is included. Pathologist [facility] Prothrombin time 12.9 11.5 - 14.5 [facility] INR 1.0 PANHANDLE Comment: [facility] International Normalized Ratio (INR) is a therapeutic HOSPITAL monitoring tool for patients who are stable on oral anticoagulant therapy. An INR of 2.0-3.0 is suggested for deep vein thrombosis/pulmonary embolism. Specimen Blood Performing Organization Address City/[facility]/Zipcode Phone Number [facility] DEPARTMENT OF PATHOLOGY AND [address] [place] [address] [address] CBC with platelet and differential (08/02/2019 6:45 AM CDT)Only the most recent of39 resultswithin the time period is included. [facility] WBC 10.68 4.50 - 11.00 k/uL [facility] RBC 3.29 (L) 4.40 - 6.00 m/uL [facility] HGB 8.8 (L) 14.0 - 18.0 g/dL [facility] HCT 28.5 (L) 41.0 - 51.0 % [facility] MCV 86.6 82.0 - 100.0 fL [facility] MCH 26.7 (L) 27.0 - 34.0 pg [facility] MCHC 30.9 (L) 31.0 - 37.0 g/dL [facility] RDW - SD 71.8 (H) 37.0 - 55.0 fL [facility] MPV 9.1 8.8 - 13.2 fL [facility] Platelet count 345 150 - 400 k/uL [facility] Nucleated RBC 0.00 /100 WBC [facility] Neutrophils 94.0 (H) 39.0 - 69.0 % [facility] Lymphocytes 6.0 (L) 25.0 - 45.0 % [facility] Monocytes 0.0 0.0 - 10.0 % [facility] Eosinophils 0.0 0.0 - 5.0 % [facility] Basophils 0.0 0.0 - 1.0 % [facility] Specimen Blood Performing Organization Address City/[facility]/Zipcode Phone Number [facility] DEPARTMENT OF PATHOLOGY AND [address] [place] [address] [address] Thyroid stimulating hormone (08/02/2019 6:45 AM CDT)Only the most recent of2 resultswithin the time period is included. TSH 2.82 0.27 - 4.20 uIU/mL [facility] Specimen Plasma specimen Performing Organization Address City/[facility] Phone Number [facility] DEPARTMENT OF PATHOLOGY AND [address] [place] [address] T4, free (08/02/2019 6:45 AM CDT)Only the most recent of2 resultswithin the time period is included. T4, free 1.2 0.9 - 1.7 ng/dL [facility] Specimen Plasma specimen Performing Organization Address City/[facility] Centercovt Phone Number [facility] DEPARTMENT OF PATHOLOGY AND [address] [place] [address] Hemoglobin A1c (08/02/2019 6:45 AM CDT)Only the most recent of2 resultswithin the time period is included. Pathologist [facility] Hemoglobin A1C 7.0 (H) 4.0 - 5.6 % [facility] Comment: HOSPITAL HbA1c cutoffs for diagnosing diabetes: 4.0% - 5.6%=normal 5.7% - 6.4%=increased risk for diabetes (prediabetes) >=6.5%=diabetes Goals for glycemic control (ADA 2016) < 7.0%Target for non adults with diabetes. More or less stringent targets may be appropriate for individual patients. <7.5% Target for Children and adolescents with type 1 diabetes. Specimen Blood Performing Organization Address City/[facility] Centercode Phone Number [facility] DEPARTMENT OF PATHOLOGY AND [address] [place] [address] Basic metabolic panel (08/02/2019 6:45 AM CDT)Only the most recent of30 resultswithin the time period is included. Sodium 146 135 - 148 mEq/L [facility] Potassium 3.2 (L) 3.5 - 5.0 mEq/L [facility] Chloride 113 (H) 98 - 112 mEq/L [facility] CO2 20 (L) 24 - 31 mEq/L [facility] Anion gap 13@ANIO 7 - 15 mEq/L [facility] BUN 18 8 - 23 mg/dL [facility] Creatinine 1.05 0.70 - 1.20 mg/dL [facility] Glucose 113 (H) 65 - 99 mg/dL [facility] Calcium 7.9 (L) 8.8 - 10.2 mg/dL [facility] Specimen Plasma specimen Performing Organization Address City/[facility] Cent[facility]ode Phone Number [facility] DEPARTMENT OF PATHOLOGY AND [address] [place] [address] GENOMIC MEDICINE [facility] [address] [place] [address] ECG 12 lead (08/01/2019 7:15 PM CDT)Only the most recent of3 resultswithin the time period is included. Ventricular rate 106 [facility] MUSE Atrial rate 106 [facility] MUSE WV interval 160 [facility] MUSE QRSD interval 70 [facility] QT interval 292 [facility] QTC interval 387 [facility] P axis 1 56 [facility] QRS axis 1 51 [facility] MUSE T wave axis 121 [facility] MUSE EKG impression Sinus tachycardia-T wave abnormality, consider inferior ischemia-Abnormal ECG-In automated comparison with ECG of 01-AUG-2019 11:26,-T wave inversion now evident in Inferior leads-Nonspecific T wave abn [facility] MUSE ormality now evident in Anterolateral leads-QT has shortened- Specimen Narrative Performed At Performing Organization Address [facility] Centercode Phone Number [facility] MUSE [address] [place] [address] XR Chest 1 Vw Portable (08/01/2019 5:26 [...] significant effusion is identified. Bones are unremarkable. *[id number] Procedure Note Hm Interface, Radiology Results Incoming - 08/01/2019 5:33 [...] significant effusion is identified. Bones are unremarkable. *[id number] Performing Organization Address City/State/Zipcode Phone Number [facility] [address] [place] [address] CT Cervical Spine Wo Contrast (08/01/2019 4:17 [...] is posterior disc osteophyte complex changes with [id number] canal narrowing. Uncovertebral arthrosis and facet disease [...] right pleural effusion. Recommend chest x-ray imaging. [facility]-[id number] Procedure Note Hm Interface, Radiology Results - 08/01/2019 4:29 PM CDT EXAMINATION: CT [...] right pleural effusion. Recommend chest x-ray imaging. [facility]-[id number] Performing Organization Address City/State/Zipcode Phone Number [facility] [address] [place] [address] XR Knee 1 Or 2 Vw Right (08/01/2019 3:18 PM CDT) Specimen Narrative Performed At EXAMINATION:XR KNEE 1 OR 2 VW RIGHT [facility] CLINICAL HISTORY:Knee paininitial exam COMPARISON:None. IMPRESSION: There is no evidence of right knee fracture, dislocation, or joint effusion. Bone mineralization is normal. [facility]-[id number] Procedure Note Hm Interface, Radiology Results Incoming - 08/01/2019 3:30 PM CDT EXAMINATION: XR KNEE 1 OR 2 VW RIGHT CLINICAL HISTORY: Knee pain initial exam COMPARISON: None. IMPRESSION: There is no evidence of right knee fracture, dislocation, or joint effusion. Bone mineralization is normal. [facility]-[id number] Performing Organization Address City/[facility]/Zipcode Phone Number [facility] [address] [place] [phone] Troponin (08/01/2019 1:24 PM CDT)Only the most recent of2 resultswithin the time period is included. Pathologist [facility] Troponin 0.008 0.000 - 0.040 [facility] Comment: ng/mL [facility] changed methodology effective: 03/25/2019 at 10:00 am The new method has a 99th percentile cutoff of 0.040 ng/mL Specimen Plasma specimen Performing Organization Address [facility] Phone Number [facility] DEPARTMENT OF PATHOLOGY AND [address] [place] [address] [address] Partial thromboplastin time, activated (08/01/2019 1:24 PM CDT)Only the most recent of3 resultswithin the time period is included. [facility] PTT 30.9 23.0 - 36.0 [facility] Comment: [facility] PTT therapeutic range for unfractionated heparin is 61.0-112.0 seconds which corresponds to Anti-Xa 0.3-0.7 U/ml. Specimen Blood Performing Organization Address [facility] Phone Number [facility] DEPARTMENT OF PATHOLOGY AND [address] [place] [address] [address] Phosphorus level (08/01/2019 1:24 PM CDT)Only the most recent of13 resultswithin the time period is included. [facility] Phosphorus 3.0 2.4 - 4.5 mg/dL [facility] Specimen Plasma specimen Performing Organization Address [facility] Centercode Phone Number [facility] DEPARTMENT OF PATHOLOGY AND [address] [place] [phone] [place] [address] B natriuretic peptide (08/01/2019 1:24 PM CDT)Only the most recent of2 resultswithin the time period is included. BNP 65 0 - 100 pg/mL [facility] Specimen Blood Performing Organization Address City/[facility] Centercode Phone Number [facility] DEPARTMENT OF PATHOLOGY AND [address] [place] [address] Magnesium level (08/01/2019 1:24 PM CDT)Only the most recent of21 resultswithin the time period is included. Magnesium 1.7 1.6 - 2.4 mg/dL [facility] Specimen Plasma specimen Performing Organization Address [facility] Phone Number [facility] DEPARTMENT OF PATHOLOGY AND [address] [place] [address] Lactic acid level (08/01/2019 1:24 PM CDT)Only the most recent of3 resultswithin the time period is included. Lactic acid 2.0 0.5 - 2.2 mmol/L [facility] Specimen Plasma specimen Performing Organization Address [facility] Phone Number [facility] DEPARTMENT OF PATHOLOGY AND [address] [place] [address] Comprehensive metabolic panel (08/01/2019 1:24 PM CDT)Only the most recent of13 resultswithin the time period is included. Sodium 141 135 - 148 [facility] mEq/L [facility] Potassium 3.4 (L) 3.5 - 5.0 [facility] mEq/L [facility] Chloride 110 98 - 112 mEq/L [facility] CO2 19 (L) 24 - 31 mEq/L [facility] Anion gap 12@ANIO 7 - 15 mEq/L [facility] BUN 21 8 - 23 mg/dL [facility] Creatinine 1.40 (H) 0.70 - 1.20 [facility] mg/dL [facility] Glucose 137 (H) 65 - 99 mg/dL [facility] Calcium 7.8 (L) 8.8 - 10.2 [facility] mg/dL HOSPITAL Protein 5.0 (L) 6.3 - 8.3 g/dL [facility] Comment: HOSPITAL [place] 4.6-7.0 g/dL 1 week 4.4-7.6 g/dL 7 months-1year5.1-7.3 g/dL 1-2 years5.6-7.5 g/dL >3 years6.0-8.0 g/dL 18-150 6.3-8.3 g/dL Albumin 2.0 (L) 3.5 - 5.0 g/dL [facility] A/G ratio 0.7 0.7 - 3.8 [facility] Alkaline phosphatase 101 40 - 129 U/L [facility] AST 24 10 - 50 U/L [facility] ALT 18 5 - 50 U/L [facility] Total bilirubin 0.4 0.0 - 1.2 [facility] mg/dL HOSPITAL Specimen Plasma specimen Performing Organization Address City/State/Zipcode Phone Number [facility] DEPARTMENT OF PATHOLOGY AND [address] [place] [address] [address] [address] [address] Maxillofacial Wo Contrast (08/01/2019 12:14 PM [...] significant findings. Procedure Note Interface, Radiology Results - 08/01/2019 12:43 PM CDT EXAMINATION: CT [...] findings. Performing Organization Address City/State/Zipcode Phone Number [facility] [address] [place] [address] CT Head Wo Contrast (08/01/2019 12:14 PM CDT) Specimen Narrative Performed At EXAMINATION:[facility] WAS PERFORMED WITH [...] IMPRESSION: Nasal injury without acute intracranial abnormality. [facility]-[id number] Procedure Note Interface, Radiology Results Incoming - [...] IMPRESSION: Nasal injury without acute intracranial abnormality. [facility]-[id number] Performing Organization Address City/State/Zipcode Phone Number [facility] [address] [place] [address] Urinalysis screen and microscopy, with reflex to culture (07/30/2019 1:16 PM CDT)Only the most recent of4 resultswithin the time period is included. Specimen site Clean catch [facility] [place] Color, UA Yellow [facility] Appearance, UA Hazy [facility] Specific gravity, 1.016 1.001 - 1.035 [facility] pH, UA 5.0 5.0 - 8.5 [facility] Protein, UA 1+ (A) Negative [facility] Glucose, UA Negative Negative [facility] Ketones, UA Negative Negative [facility] Leukocyte esterase, Negative Negative [facility] Epithelial cells, 1 /HPF [facility] WBC, UA 4 (H) 0 - 1 /HPF [facility] RBC, UA <1 0 - 5 /HPF [facility] Bacteria, UA Few None seen [facility] Yeast, UA Moderate (A) [facility] Yeast with Few (A) [facility] pseudohyphae, UA OUTPATIENT CENTER Hyaline casts, UA 2-5 /LPF [facility] Specimen Urine Performing Organization Address City/[facility]ode Phone Number [facility] DEPARTMENT OF PATHOLOGY AND [address] [place] [address] [place] [address] Gram stain (07/30/2019 1:15 PM CDT)Only the most recent of2 resultswithin the time period is included. Gram stain result Rare WBC's [facility] No organisms seen HOSPITAL Comment: Specimen Information Specimen Source: Urine Specimen Site: Clean catch Specimen Urine Performing Organization Address City/[facility]ode Phone Number [facility] DEPARTMENT OF PATHOLOGY AND [address] [place] [phone] Urine culture (07/30/2019 1:15 PM CDT)Only the most recent of4 resultswithin the time period is included. Urine culture Heena glabrata [facility] isolate 10-5 cfu/ml HOSPITAL The performance characteristics of this assay on this isolate were validated by the Microbiology Laboratory at [facility].This source has not been approved by the [...] BP 4 mcg/mL: Susceptible Performing Organization Address City/[facility] Cent[facility]ode Phone Number [facility] DEPARTMENT OF PATHOLOGY AND [address] [place] [address] Cancer antigen 19-9 (07/30/2019 8:15 AM CDT)Only the most recent of2 resultswithin the time period is included. CA 19-9 1,837 (H) 0 - 35 U/mL [facility] Comment: HOSPITAL The [employer] Doyle 8000 CA19-9 immunoassay was used. Results obtained with different assay methods or kits should not be used interchangeably and may be different. Specimen Plasma specimen Performing Organization Address [facility] Phone Number [facility] DEPARTMENT OF PATHOLOGY AND [address] [place] [address] Urinalysis, automated with microscopy (07/30/2019 7:55 AM CDT)Only the most recent of4 resultswithin the time period is included. Color, UA Yellow [facility] [place] Appearance, UA Hazy [facility] Specific gravity, 1.009 1.001 - 1.035 [facility] pH, UA 5.0 5.0 - 8.5 [facility] Protein, UA Negative Negative [facility] Glucose, UA Negative Negative [facility] [place] Ketones, UA Negative Negative [facility] [place] Bilirubin, UA Negative Negative [facility] [place] Blood, UA Negative Negative [facility] [place] Nitrite, UA Negative Negative [facility] Urobilinogen, UA <2.0 <2.0 [facility] Leukocyte esterase, Small (A) Negative [facility] Epithelial cells, 2 /HPF [facility] WBC, UA 18 (H) 0 - 1 /HPF [facility] RBC, UA <1 0 - 5 /HPF [facility] [place] Bacteria, UA Few None seen [facility] Hyaline casts, UA 5-10 /LPF [facility] WBC clumps, UA Few (A) [facility] Yeast, UA Moderate (A) [facility] Yeast with Few (A) [facility] pseudohyphae, UA OUTPATIENT CENTER Specimen Urine Performing Organization Address City/[facility] Centercode Phone Number [facility] DEPARTMENT OF PATHOLOGY AND [address] [place] [address] [facility] [address] [place] [address] C difficile toxin (07/16/2019 2:07 PM CDT)Only the most recent of2 resultswithin the time period is included. Clostridium No Clostridium difficle toxin present [facility] difficile toxin Comment: HOSPITAL Specimen Information Specimen Source: Stool Specimen Site: Nonpreserved Specimen Stool - Nonpreserved Performing Organization Address City/[facility] Centercode Phone Number [facility] DEPARTMENT OF PATHOLOGY AND [address] [place] [phone] [place] [phone] Carcinoembryonic antigen (CEA) (07/03/2019 9:50 AM CDT) Pathologist [facility] CEA 2.5 0.0 - 3.8 [facility] Comment: ng/mL HOSPITAL Reference range for heavy smokers:0.0 - 5.5 ng/mL The [employer] Doyle 8000 CEA immunoassay was used. Results obtained with different assay methods or kits should not be used interchangeably and may be different. Specimen Serum Performing Organization Address [facility] Phone Number [facility] DEPARTMENT OF PATHOLOGY AND [address] [place] [phone] [address] Ionized calcium (06/29/2019 4:00 AM CDT) pH 7.50 [facility] Ionized calcium 1.01 (L) 1.11 - 1.32 [facility] mmol/L HOSPITAL Specimen Plasma specimen Performing Organization Address City/[facility]/Zipcode Phone Number [facility] DEPARTMENT OF PATHOLOGY AND [address] [place] [address] Us duplex venous lower extremity (06/28/2019 6:45 AM CDT)Only the most recent of2 resultswithin the time period is included. Specimen Narrative Performed At [facility] Lower Extremity Venous Report [id number] [address] Pat.Name:CLARICE MEJIA Pat.ID:[id number] .Date: 06/28/2019 Refer.MD:MARCELA KING MD Exam Time: 6:12:00 AMStudy Type:LE Venous Height:70inWeight: 108lb BSA: 1.61 m2 DOBAge:1955,64Y Sex: MALE Sonogrphr: CARMEN Donaldson, RDCS, RVT/Dede Diaz RDCS, RVT Pat. Stat.:Inpatient Room:[address] TapeVol: KG/CC,CPT - 4: 74728 Echo Event ID:[id number] Order ID:[id number] Reason for Study:Bilateral leg swelling and pain, [...] Signed 06/29/2019 07:27 AM Richard Dove MD, VI Procedure Note Interface, Radiology Results In - 06/29/2019 7:27 AM CDT [facility] Lower Extremity Venous Report [address] [address], [place] [address] Pat.Name: CLARICE MEJIA.ID: [id number] .Date: 06/28/2019 Refer.MD: MARCELA KING MD Exam Time: 6:12:00 AM Study Type:LE Venous Height: 70in Weight: 108lb BSA: 1.61 m2 Age: 3 1955,64Y Sex: MALE Sonogrphr: CARMEN Donaldson, RDCS, RVT/Dede Diaz RDCS, RVT Pat. Stat.:Inpatient Room: [address] Tape Vol: KG/CC, CPT - 4: [address]552 Echo Event ID:[id number] Order ID: [id number] Reason for Study:Bilateral leg swelling and pain, [...] Signed 06/29/2019 07:27 AM Richard Dove MD, [facility] Performing Organization Address City/State/Zipcode Phone Number [facility] [address] [place] [address] Blood smear consult (06/24/2019 4:55 AM CDT) Blood smear Done [facility] Comment: HOSPITAL Leukopenia with left shift granulocytes, and rare blasts (2%), consistent with Granx treatment effect.Reviewed by Quincy Walsh M.D. Blast results called to and read back by Ibrahima Ceballos/Coni at06/25/2019 10:33 by _AD_. Specimen Performing Organization Address City/[facility]/Zipcode Phone Number [facility] DEPARTMENT OF PATHOLOGY AND [address] [place] [address] Triglycerides (06/24/2019 4:55 AM CDT) Pathologist [facility] Triglycerides 143 <150 mg/dL [facility] Specimen Plasma specimen Performing Organization Address [facility] Centercode Phone Number [facility] DEPARTMENT OF PATHOLOGY AND [address] [place] [address] XR Abdomen 1 Vw Portable (06/23/2019 11:48 PM CDT) Specimen Narrative Performed At EXAMINATION:XR ABDOMEN 1 VW PORTABLE [facility] CLINICAL HISTORY:confirm ngt placement COMPARISON:None. IMPRESSION: 1.Nasogastric tube extends into the stomach. The bowel gas pattern is nonspecific. 2.Surgical clips overlie the right upper quadrant. 3.Spondylosis lower lumbar spine. [facility]-[id number] Procedure Note Interface, Radiology Results Incoming - 06/24/2019 12:31 AM CDT EXAMINATION: XR ABDOMEN 1 VW PORTABLE CLINICAL HISTORY: confirm ngt placement COMPARISON: None. IMPRESSION: 1. Nasogastric tube extends into the stomach. The bowel gas pattern is nonspecific. 2. Surgical clips overlie the right upper quadrant. 3. Spondylosis lower lumbar spine. [facility]-[id number] Performing Organization Address [facility]/Zipcode Phone Number [facility] [address] [place] [phone] Gastrointestinal panel (06/21/2019 12:26 PM CDT) Gastrointestinal panel Positive for C. difficile toxin PANHANDLE PENTECOSTAL Negative for all other pathogens tested: HOSPITAL [...] Specimen Stool - Nonpreserved Performing Organization Address City/[facility] Cent[facility]ode Phone Number [facility] DEPARTMENT OF PATHOLOGY AND [address] [place] [address] Type and screen (06/11/2019 4:36 AM CDT) ABO grouping AB [facility] Rh type POS [facility] Antibody screen (gel) NEG [facility] Specimen Blood Performing Organization Address City/[facility] Centercode Phone Number [facility] DEPARTMENT OF PATHOLOGY AND [address] [place] [address] NM Lung Ventilation Perfusion (06/01/2019 3:47 PM [...] of acute pulmonary embolism. [facility] Procedure Note Hm Interface, Radiology Results Incoming [...] acute pulmonary embolism. [facility] Performing Organization Address [facility] Cent[facility]ovt Phone Number [facility] [address] [place] [phone] Lactic acid level, SEPSIS - Now and repeat 2x every 3 hours (05/30/2019 4:54 PM CDT)Only the most recent of3 resultswithin the time period is included. Lactic acid 3.1 (H) 0.5 - 2.2 mmol/L [facility] Specimen Blood Performing Organization Address [facility] [facility] Phone Number [facility] DEPARTMENT OF PATHOLOGY AND [address] [place] [phone] GENOMIC MEDICINE [address] [address] Echocardiogram complete w contrast and 3D if needed (05/30/2019 11:45 AM CDT) Specimen Narrative Performed At [facility] Echocardiography Report [address] [facility] [address] [address] Pat.Name:CLARICE MEJIA Pat.ID:[id number] .Date: 05/30/2019 Refer.MD:KEENA OZUNA MD Exam Time: 11:25:00 AM Study Type:Routine Echo Height:70inWeight: 201lb BSA: 2.09 m2 DOBAge:1955,64Y Sex: MALEBP:108/60 HR:118 bpm Sonogrphr: Ashleigh Tony RDCS Pat. Stat.:Inpatient Room:[address] Study Status:Final Echo Event ID:[id number] Order ID:[id number] Reason for Study:Hypotension or Hemodynamic Instability - [...] PA systolic pressure. MEASUREMENTS: 2D Parasternal [place] Ds3 cmLVPWd1 cm LVOT 2.3 cmAo An2.3 cm LVIDd4.1 cmIndex2 cm/m Ao Rtd 3.7 cm Index1.8 cm/m LVIDs2.8 cm LV Arpq013.7 g(122-174) LV%fs 31.9 % LVM Index 59.6 [...] 05/30/2019 3:34 PM CDT Echocardiography Report [address] [place] [address] Pat.Name: CLARICE MEJIA Pat.ID: [id number] .Date: 05/30/2019 Refer.MD: KEENA OZUNA MD Exam Time: 11:25:00 AM Study Type:Routine Echo Height: 70in Weight: 201lb BSA: 2.09 m2 Age: 3 1955,64Y Sex: MALE BP: 108/60 HR: 118 bpm Sonogrphr: Ashleigh Tony RDCS Pat. Stat.:Inpatient Room: [address] Study Status:Final Echo Event ID:[id number] Order ID: [id number] Reason for Study:Hypotension or Hemodynamic Instability - [...] PA systolic pressure. MEASUREMENTS: 2D Parasternal [place] Ds 3 cm LVPWd 1 cm [...] Performing Organization Address City/State/Zipcode Phone Number [facility] [address] [place] [address] Sedimentation rate (05/28/2019 10:55 AM CDT) Sedimentation rate 67 (H) 0 - 10 mm/hr [facility] Specimen Blood Performing Organization Address City/[facility]/Zipcode Phone Number [facility] DEPARTMENT OF PATHOLOGY AND [address] [place] [phone] [address] Sodium level, urine, random (05/28/2019 9:54 AM CDT) Sodium, urine, random 26 mEq/L [facility] Specimen Urine Performing Organization Address City/[facility]/Zipcode Phone Number [facility] DEPARTMENT OF PATHOLOGY AND [address] [place] [phone] [place] [phone] Creatinine level, urine, random (05/28/2019 9:54 AM CDT) Creatinine, urine, 170 mg/dL [facility] Specimen Urine Performing Organization Address City/[facility] Phone Number [facility] DEPARTMENT OF PATHOLOGY AND [address] [place] [phone] [place] [phone] [place] Renal (05/28/2019 9:11 AM CDT) Specimen Narrative Performed At Renal ultrasound, 05/28/2019 10:15 AM [facility] Clinical history: Acute renal failure Comparison: None Technique: Grayscale and color Doppler ultrasound. Findings: Right kidney: 10.2 x 5.5 x 6 cm. Cortex thickness 1.2 cm. Normal kidney. Left kidney: 10.7 x 5.7 x 5.5 cm. Cortex thickness 1.2 cm. Two simple cysts measuring 2 cm in diameter. Otherwise, normal. Bladder: Unremarkable. The patient did not void for postvoid volume calculation. Kopzo-uq-xkqscgdx volume pelvic ascites. Impression: 1.No acute abnormality [...] did not void for postvoid volume calculation. Igzra-xj-rlikmyuv volume pelvic ascites. Impression: 1. No acute abnormality of the kidneys. Specifically, no evidence of obstruction. 2. Small to moderate pelvic ascites. Performing Organization Address [facility]/Zipcode Phone Number [address] [address] Blood culture, aerobic & anaerobic (05/27/2019 11:55 PM CDT)Only the most recent of2 resultswithin the time period is included. Blood culture No growth after 5 days of incubation. [facility] isolate Comment: HOSPITAL Specimen Information Specimen Source: Blood Specimen Site: Unspecified Specimen Blood Performing Organization Address [facility] Phone Number [facility] DEPARTMENT OF PATHOLOGY AND [address] [place] [phone] [place] [phone] Uric acid level (05/27/2019 9:50 PM CDT) Uric acid 6.7 3.4 - 7.0 mg/dL [facility] Specimen Blood Performing Organization Address [facility] Phone Number [facility] DEPARTMENT OF PATHOLOGY AND [address] [place] [phone] [place] [phone] Prealbumin level (05/27/2019 9:50 PM CDT) Prealbumin 10 (L) 16 - 32 mg/dL [facility] Specimen Serum Performing Organization Address [facility] Phone Number [facility] DEPARTMENT OF PATHOLOGY AND [address] [place] [phone] Lipase level (05/27/2019 9:50 PM CDT) Lipase 25 13 - 60 U/L [facility] Specimen Blood Performing Organization Address [facility] Phone Number [facility] DEPARTMENT OF PATHOLOGY AND [address] [place] [phone] [place] [phone] Creatine kinase, total (CPK) (05/27/2019 9:50 PM CDT) Creatine kinase 185 39 - 308 U/L [facility] Specimen Blood Performing Organization Address City/State/Zipcode Phone Number [facility] DEPARTMENT OF PATHOLOGY AND [address] [place] [address] [facility] [address] [place] [address] Bilirubin direct (05/27/2019 9:50 PM CDT) Bilirubin direct <0.2 0.0 - 0.3 mg/dL [facility] Specimen Blood Performing Organization Address City/[facility]/Zipcode Phone Number [facility] DEPARTMENT OF PATHOLOGY AND [address] [place] [address] [facility] [address] [place] [address] XR Chest 2 Vw (01/07/2019 4:52 PM [facility]) Specimen Narrative Performed At EXAMINATION:XR CHEST 2 VW HM [facility] CLINICAL HISTORY:R05 Cough, COUGH COMPARISON:None IMPRESSION: Lungs are clear. Cardiothymic is also is within normal limits. Right IJ line is seen with its tip in lower SVC. Suspicious osseous lesion is not identified. [facility]-[id number] Procedure Note Hm Interface, Radiology Results Incoming - 01/07/2019 4:57 PM [facility] EXAMINATION: XR CHEST 2 VW CLINICAL HISTORY: R05 Cough, COUGH COMPARISON: None IMPRESSION: Lungs are clear. Cardiothymic is also is within normal limits. Right IJ line is seen with its tip in lower SVC. Suspicious osseous lesion is not identified. [facility]-[id number] Performing Organization Address [facility]/Zipcode Phone Number [facility] [address] [place] [address] after 08/09/2018 Advance Directives For more information, please contact: [phone] Type Date Recorded Patient Flue Blower Explanation Advance Directives, Living Will 06/21/2019 4:56 AM and Medical Power of Hospice Clinical Manager
--- OUTSIDE RECORDS SUMMARY | 2019-08-10 20:12 | XMS REPORT | Clinical Summary ---
:1955 Author Organization [facility] Address [address] [place] [address] Care Team Providers Name Role Phone Tesha [...] Acute respiratory insufficiency; Acute postoperative pain after 08/09/2018 Social History Tobacco Use Types Packs/Day Years [...] Not on file Implants Implanted Type Area Camp Housekeeper Device Identifier Shelf Model / Expiration Serial / Lot Date Cath Exp Silv Soak Nuclear Engineer 12.5cmx [id number] - [id number] Pain Abdomen MISTY PHAN [id number] 09/10/2020 [id number] / Implanted: Qty: 2 on 08/14/2018 by Víctor Sam MD [facility] / marisol [id number] r Procedures Procedure Name Priority Date/Time Associated Comments Diagnosis PERMANENT LAB REPORT - 06/10/2019 12:02 SCAN PM CDT INTRAOPERATIVE PATH 09/25/2018 4:36 REPORT - SCAN PM [place] INTRAOPERATIVE PATH 09/25/2018 4:36 REPORT - SCAN PM [place] RHYTHM STRIP - SCAN 08/27/2018 9:10 AM [...] 354 ms QTC Calculation(Bazett) 465 ms P [place] 33 degrees R [place] 18 degrees T [place] 71 degrees Sinus tachycardia Otherwise normal ECG [...] 332 ms QTC Calculation(Bazett) 457 ms P [place] 70 degrees R [place] 57 degrees T [place] 22 degrees Sinus tachycardia Nonspecific ST abnormality [...] in the results section. after 08/09/2018 Results PERMANENT LAB REPORT - SCAN (06/10/2019 12:02 PM CDT) Narrative Performed At INTRAOPERATIVE PATH REPORT - SCAN (09/25/2018 4:36 PM [place])Only the most recent of2 resultswithin the time period is included. Narrative Performed At RHYTHM STRIP - SCAN (08/27/2018 9:10 AM CDT) Narrative Performed At POC-Glucose meter (08/23/2018 12:42 PM CDT)Only the most recent of44 resultswithin the time period is included. POC-Glucose Meter 200 (H)Comment: TESTED AT 70 - 110 mg/dL [address] [address] Specimen Blood Performing Organization Address City/[facility]/Zipcode Phone Number [address] [address] [phone] CENTER Calcium, Ionized (08/23/2018 4:15 AM CDT)Only the most recent of9 resultswithin the time period is included. Calcium, Ion 0.99 (L) 1.12 - 1.27 mmol/L [facility] pH, Blood 7.51 [facility] Specimen Blood Performing Organization Address City/[facility]/Zipcode Phone Number [address] [address] CENTER CBC with platelet count + automated diff (08/23/2018 4:15 AM CDT)Only the most recent of6 resultswithin the time period is included. WBC 11.8 (H) 3.5 - 10.5 K/L [facility] RBC 2.97 (L) 4.63 - 6.08 M/L [facility] Hemoglobin 9.3 (L) 13.7 - 17.5 GM/DL [facility] Hematocrit 28.5 (L) 40.1 - 51.0 % [facility] MCV 96.0 (H) 79.0 - 92.2 fL [facility] MCH 31.3 25.7 - 32.2 pg [facility] MCHC 32.6 32.3 - 36.5 GM/DL [facility] RDW 16.4 (H) 11.6 - 14.4 % [facility] Platelets 383 150 - 450 K/CU MM [facility] MPV 10.3 9.4 - 12.4 fL [facility] nRBC 0 0 - 0 /100 WBC [facility] % Neutros 66 % [facility] % Lymphs 18 % [facility] % Monos 11 % [facility] % Eos 1 % [facility] % Baso 1 % [facility] # Neutros 7.75 (H) 1.78 - 5.38 K/L [facility] # Lymphs 2.09 1.32 - 3.57 K/L [facility] # Monos 1.25 (H) 0.30 - 0.82 K/L [facility] # Eos 0.13 0.04 - 0.54 K/L [facility] # Baso 0.06 0.01 - 0.08 K/L [facility] Immature Granulocytes-Relative 5 (H) 0 - 1 % [facility] Specimen Blood Performing Organization Address City/State/Zipcode Phone Number [facility] [address] [place] [address] CENTER Phosphorus (08/23/2018 4:15 AM CDT)Only the most recent of18 resultswithin the time period is included. Phosphorus 3.2 2.3 - 4.7 mg/dL [facility] Specimen Blood Performing Organization Address City/[facility] Phone Number [facility] [address] [place] [address] [place] Magnesium (08/23/2018 4:15 AM CDT)Only the most recent of11 resultswithin the time period is included. Magnesium 1.7 1.6 - 2.6 mg/dL [facility] Specimen Blood Performing Organization Address City/[facility] Phone Number [facility] [address] [place] [phone] [place] Hepatic function panel (08/23/2018 4:15 AM CDT)Only the most recent of9 resultswithin the time period is included. Protein, Total 5.9 (L) 6.0 - 8.3 gm/dL [facility] Albumin 3.1 (L) 3.5 - 5.0 g/dL [facility] Total Bilirubin 0.8 0.2 - 1.2 mg/dL [facility] Bilirubin, Direct 0.6 (H) 0.1 - 0.5 mg/dL [facility] Alkaline Phosphatase 90 40 - 150 U/L [facility] AST 33 5 - 34 U/L [facility] ALT 63 (H) 6 - 55 U/L [facility] Specimen Blood Performing Organization Address City/[facility] Hospitalcode Phone Number [address] [address] [place] Basic Metabolic Panel (08/23/2018 4:15 AM CDT)Only the most recent of12 resultswithin the time period is included. Sodium 135 (L) 136 - 145 meq/L [facility] Potassium 3.6 3.5 - 5.1 meq/L [facility] Chloride 102 98 - 107 meq/L [facility] CO2 24 22 - 29 meq/L [facility] BUN 13 7 - 21 mg/dL [facility] Creatinine 1.08 0.57 - 1.25 mg/dL [facility] Glucose 108 (H) 70 - 105 mg/dL [facility] Calcium 8.4 8.4 - 10.2 mg/dL [facility] EGFR 69Comment: ESTIMATED GFR IS mL/min/1.73 sq m [facility] NOT ACCURATE [facility]ATININE [facility] CLEARANCE IN PREDICTING GLOMERULAR FILTRATION RATE. ESTIMATED GFR IS NOT APPLICABLE FOR DIALYSIS PATIENTS. Specimen Blood Performing Organization Address City/State/Zipcode Phone Number [facility] [address] [place] [address] [phone] CENTER Manual Differential (08/22/2018 5:33 AM CDT)Only the most recent of3 resultswithin the time period is included. % Neutros 77 % [facility] % Lymphs 10 % [facility] % Monos 11 % [facility] % Myelo 1 (H) 0 - 0 % [facility] % Bands 1 0 - 10 % [facility] # Neutros 8.70 (H) 1.78 - 5.38 K/ul [facility] # Lymphs 1.13 (L) 1.32 - 3.57 K/ul [facility] # Monos 1.24 (H) 0.30 - 0.82 K/uL [facility] # Myelo 0.11 (H) 0.00 - 0.00 K/uL [facility] # Bands 0.11 0.00 - 0.80 K/uL [facility] Total Counted 100 [facility] RBC Morphology Normal [facility] WBC Morph[facility] Normal [facility] Platelet Morphology Normal [facility] Artifact Present [facility] Platelet Conc Adequate [facility] Specimen Blood Narrative Performed At Received comment: [facility] User comments: Slide comments: Performing Organization Address City/State/Zipcode Phone Number [facility] [address] [place] [address] CENTER XR chest 1 view portable / [...] MD Report Verified Date/Time:08/22/2018 05:00:09 Reading Location: [address] Transitional Reading Room Procedure Note Interface, [...] Report Verified Date/Time: 08/22/2018 05:00:09 Reading Location: [facility] B1 C013T Transitional Reading Room Performing Organization Address City/State/Zipcode Phone Number GE RIS Sputum Culture + Gram Stain (08/21/2018 2:21 PM CDT) Result 3+ Normal respiratory talat [facility] Gram Stain Result <1+ WBCs [facility] Gram Stain Result 0-5 epithelial cells [facility] Gram Stain Result 1+ gram positive cocci in [facility] chains, pairs and clusters [facility] Specimen Sputum - Expectorated Performing Organization Address City/State/Zipcode Phone Number [facility] [address] [place] [address] [phone] chest for pulmonary embolus (08/20/2018 4:29 PM CDT) Specimen Narrative Performed At FINAL REPORT [facility] CT Chest PE Protocol dated 08/20/2018 Clinical [...] MD Report Verified Date/Time:08/20/2018 16:47:26 Reading Location: [facility] B1 C013Y CT Body Reading Room [...] Report Verified Date/Time: 08/20/2018 16:47:26 Reading Location: [facility] B1 C013Y CT Body Reading Room Performing Organization Address City/State/Zipcode Phone Number RIS Vancomycin level, trough (08/20/2018 9:21 AM CDT)Only the most recent of2 resultswithin the time period is included. Vancomycin Tr 16.5 10.0 - 20.0 ug/mL [facility] Specimen Blood Narrative Performed At Please draw 30 min prior to AM dose [facility] Performing Organization Address City/[facility]/Zipcode Phone Number [address] [address] [phone] CENTER B-type Natriuretic Factor (BNP) (08/20/2018 3:54 AM CDT)Only the most recent of2 resultswithin the time period is included. BNP 450 (H) 0 - 100 pg/mL [facility] Specimen Blood Performing Organization Address [facility] Hospital[facility] Phone Number [address] [address] [phone] [place] aPTT (08/20/2018 12:35 AM CDT)Only the most recent of10 resultswithin the time period is included. PTT 84.7 (H) 22.5 - 36.0 seconds [facility] Specimen Blood Performing Organization Address [facility] Hospital[facility] Phone Number [address] [address] CENTER Electrolytes (08/19/2018 3:12 PM CDT)Only the most recent of2 resultswithin the time period is included. Sodium 138 136 - 145 meq/L [facility] Potassium 3.4 (L) 3.5 - 5.1 meq/L [facility] Chloride 105 98 - 107 meq/L [facility] CO2 24 22 - 29 meq/L [facility] Specimen Blood Narrative Performed At Call [phone] [facility] Performing Organization Address City/[facility]/Zipcode Phone Number [address] [address] [place] Respiratory Panel [facility] (08/19/2018 1:10 PM CDT) Human Metapneumovirus Not detected Not detected, [facility] Rhinovirus Not detected Not detected, [facility] Influenza A Not detected Not detected, [facility] INFLUENZA A (NO SUBTYPE) Not detected, [facility] Influenza A subtype H1 Not detected, [facility] Influenza A Subtype H3 Not detected, [facility] Influenza A Subtype H1-2009 Not detected, [facility] Influenza B Not detected Not detected, [facility] Respiratory Syncytial Virus Not detected Not detected, [facility] Parainfluenza Virus 1 Not detected Not detected, [facility] Parainfluenza Virus 2 Not detected Not detected, [facility] Parainfluenza virus 3 Not detected Not detected, [facility] Parainfluenza Virus 4 Not detected Not detected, [facility] Adenovirus Not detected Not detected, [facility] Coronavirus 229E Not detected Not detected, [facility] Coronavirus HKU1 Not detected Not detected, [facility] Coronavirus NL63 Not detected Not detected, [facility] Coronavirus OC43 Not detected Not detected, [facility] Bordetella Pertussis Not detected Not detected, [facility] Chlamydophila Pneumoniae Not detected Not detected, [facility] Mycoplasma Pneumoniae Not detected Not detected, [facility] Specimen Nasopharyngeal Narrative Performed At Other viruses and bacteria not targeted by [facility] this PCR panel cannot be excluded; therefore clinical correlation and follow up of serology, culture results, and other molecular studies is required. The results are not intended to be used as the sole means for clinical diagnosis or patient management decisions. This sample was tested at the [facility] using the Access Systems[employer] Respiratory Panel. It is FDA cleared and has been verified and approved by the [facility] for clinical use on nasal swab specimens. It is not FDA-cleared for use on bronchial wash/lavage samples. However, for this sample type, validation was performed and test characteristics were determined and approved, by [facility] for clinical use under the Clinical Laboratory Improvement Amendments (CLIA) of 1988 requirements. Therefore, FDA clearance is not required.This laboratory is CLIA-certified and [employer] (CAP)-accredited to perform high complexity testing. Performing Organization Address City/[facility] Hospitalcode Phone Number [address] [address] [place] Rapid Influenza A&B Screen (08/19/2018 1:10 PM CDT) Rapid Influenza A Antigen Negative Negative, Inconclusive [facility] Rapid influenza B Antigen Negative Negative, Inconclusive [facility] Specimen Nasal Performing Organization Address [facility] Phone Number [address] [address] [place] Blood gas, arterial (08/18/2018 7:09 AM CDT)Only the most recent of5 resultswithin the time period is included. pH, Arterial 7.51 (H) 7.35 - 7.45 [facility] pCO2, Arterial 29 (L) 35 - 45 mmHg [facility] pO2, Arterial 173 (H) 80 - 90 mmHg [facility] O2 Sat, Arterial 99.3 (H) 96.0 - 97.0 % [facility] HCO3, Arterial 23 21 - 29 mmol/L [facility] Base Excess, Arterial 0.4 -2.0 - 3.0 mmol/L [facility] Patient Temperature 37.0 C [facility] FIO2 60.0 % [facility] Specimen Blood, Arterial Performing Organization Address [facility] Hospitalcode Phone Number [facility] [address] [place] [address] CENTER ECHOCARDIOGRAM REPORT - SCAN (08/17/2018 5:50 PM CDT) Narrative Performed At PT/aPTT (08/17/2018 1:13 PM CDT) Protime 14.0 11.7 - 14.7 seconds [facility] INR 1.1 <=5.9 [facility] PTT 45.0 (H) 22.5 - 36.0 seconds [facility] Specimen Blood Narrative Performed At [facility] RECOMMENDED COUMADIN/WARFARIN INR THERAPY RANGES STANDARD DOSE: 2.0 - 3.0 Includes: PROPHYLAXIS for venous thrombosis, systemic embolization; TREATMENT for venous thrombosis and/or pulmonary embolus. HIGH RISK: Target INR is 2.5-3.5 for patients with mechanical heart valves. Performing Organization Address City/State/Zipcode Phone Number [facility] [address] [place] [address] [place] CBC (Hemogram only) (08/17/2018 4:45 AM CDT)Only the most recent of4 resultswithin the time period is included. WBC 13.1 (H) 3.5 - 10.5 K/L [facility] RBC 3.23 (L) 4.63 - 6.08 M/L [facility] Hemoglobin 10.3 (L) 13.7 - 17.5 GM/DL [facility] Hematocrit 31.8 (L) 40.1 - 51.0 % [facility] MCV 98.5 (H) 79.0 - 92.2 fL [facility] MCH 31.9 25.7 - 32.2 pg [facility] MCHC 32.4 32.3 - 36.5 GM/DL [facility] RDW 17.1 (H) 11.6 - 14.4 % [facility] Platelets 173 150 - 450 K/CU MM [facility] MPV 11.3 9.4 - 12.4 fL [facility] nRBC 0 0 - 0 /100 WBC [facility] Specimen Blood Performing Organization Address City/State/Zipcode Phone Number [facility] [address] [place], [place] [phone] [place] Creatine Kinase (CK) (08/17/2018 4:45 AM CDT) Total CK 1,084 (H) 29 - 200 U/L [facility] Specimen Blood Performing Organization Address City/[facility] Phone Number [facility] [address] [place] [phone] CENTER US renal complete (08/16/2018 7:53 PM CDT) Specimen Narrative Performed At FINAL REPORT [facility] Renal ultrasound dated 08/16/2018 Comment:Real-time transabdominal renal ultrasound was performed. Right kidney measures 10.4 x 6.1 x 5.4 cm.Left kidney measures 10 21 x 6.2 x 4.3 cm.Right renal cortex measures 1.7 cm.Left renal cortex measures 1.6 cm. Echogenicity of both renal parenchyma is normal. No hydronephrosis, solid or cystic mass seen. Comparisons made with prior MRI dated July 29, 2018 from [facility]. A 2.2 cm mass is seen [...] MD Report Verified Date/Time:08/16/2018 23:12:40 Reading Location: [address] Consult Reading Room Procedure Note Interface, [...] prior MRI dated July 29, 2018 from [facility]. A 2.2 cm mass is seen [...] Report Verified Date/Time: 08/16/2018 23:12:40 Reading Location: [facility] C013W Consult Reading Room Performing Organization Address City/State/Zipcode Phone Number GE SunFunder ECG 12 lead (08/16/2018 5:57 PM CDT)Only the most recent of2 resultswithin the time period is included. Specimen Narrative Performed At Ventricular Rate 104 BPM GE MUSE Atrial Rate 104 BPM P-R Interval 186 ms QRS Duration 88 ms Q-T Interval 354 ms QTC Calculation(Bazett) 465 ms P [place] 33 degrees R [place] 18 degrees T [place] 71 degrees Sinus tachycardia Otherwise normal ECG When compared with ECG of 15-AUG-2018 22:48, No significant change was found Confirmed by MD SARAH, CARISSA ([id number]) on 08/18/2018 3:53:01 PM Procedure Note Interface, External Ris In - 08/18/2018 3:53 PM CDT Ventricular Rate 104 BPM Atrial Rate 104 BPM P-R Interval 186 ms QRS Duration 88 ms Q-T Interval 354 ms QTC Calculation(Bazett) 465 ms P [place] 33 degrees R [place] 18 degrees T [place] 71 degrees Sinus tachycardia Otherwise normal ECG When compared with ECG of 15-AUG-2018 22:48, No significant change was found Confirmed by MD SARAH, CARISSA ([id number]) on 08/18/2018 3:53:01 PM Performing Organization Address City/State/Zipcode Phone Number TEODORA ETIENNE 2D Echo W/Doppler(CW/PW/Color) (08/16/2018 4:36 PM CDT) Ejection Fraction [facility] Specimen Narrative Performed At Transthoracic Echocardiography Report (TTE) [facility] Demographics Patient NameCLARICE MEJIA Date of Study08/16/2018 Male Visit [id number] Unknown Room [id number] Number Date of 1955Referring PhysicianRaul Renee Age 63 year(s)Editor Managing Director Toyin Black [facility] It Support Technician Moira Escalera MD Procedure Type of Study [...] of Study 08/16/2018 Gender Male Visit Number [id number] Race Unknown Room Number 6A06 Number Date of 1955 Referring Physician Raul Renee Age 63 year(s) Editor Managing Director Toyin Black RDCS It Support Technician Keiko Escalera Physician Procedure Type of Study [...] TR Gradient: 25.48 mmHg Performing Organization Address [facility] Phone Number [facility] Urinalysis w/Microscopic + Reflex to Culture (08/16/2018 2:58 PM CDT) Color, UA Yellow [facility] Clarity, UA Hazy [facility] Specific Reserve, UA 1.014 1.001 - 1.035 [facility] pH, UA 5.5 5.0 - 8.0 [facility] Protein, UA 30 mg/dL (A) Negative [facility] Glucose, UA 50 mg/dL (A) Negative [facility] Ketones, UA Negative Negative [facility] Bilirubin, UA Negative Negative [facility] Blood, UA Moderate (A) Negative [facility] Nitrite, UA Negative Negative [facility] Leukocytes, UA Moderate (A) Negative [facility] Urobilinogen, UA 0.2 0.2 - 1.0 mg/dL [facility] RBC, UA <1 /HPF [facility] WBC, UA 19 /HPF [facility] Bacteria, UA Moderate [facility] Mucus Rare [facility] Hyaline Casts, UA 3 /LPF [facility] Specimen Source [facility] Specimen Urine Performing Organization Address City/[facility]/Zipcode Phone Number [facility] [address] [place] [address] CENTER Lactic acid, venous, whole blood (08/16/2018 2:58 PM CDT)Only the most recent of3 resultswithin the time period is included. Lactate, Venous 1.8Comment: Specimen 0.5 - 2.2 mmol/L [facility] slightly hemolyzed [facility] [place] Specimen Blood Narrative Performed At [facility] Effective 03/22/2016: Units/Reference Range Change New: 0.5-2.2 mmol/LPrevious: 5-20 mg/dL Performing Organization Address City/Hospital [facility] Phone Number [address] [address] [place] Sodium, random urine (08/16/2018 2:58 PM CDT) Sodium Urine 25 meq/L [facility] Specimen Urine Narrative Performed At [facility] Reference Range: No Normals Performing Organization Address City/[facility] Phone Number [address] [address] [place] Protein, random urine (08/16/2018 2:58 PM CDT) Protein, Urine 39 (H) 0 - 14 mg/dL [facility] Specimen Urine Performing Organization Address [facility] Phone Number [address] [address] [phone] [place] Creatinine, random urine (08/16/2018 2:58 PM CDT) Creatinine, Ur 137.8 mg/dL [facility] Specimen Urine Narrative Performed At [facility] Reference Range: No Normals Performing Organization Address [facility] Phone Number [address] [address] [phone] [place] Urine culture (08/16/2018 2:58 PM CDT) Result No growth [facility] Specimen Urine Performing Organization Address [facility] Phone Number [facility] [address] [place] [address] CENTER NM lung scan (V/Q) (08/16/2018 12:39 PM CDT) Specimen Narrative Performed At FINAL REPORT [facility] PROCEDURE: V/Q LUNG SCAN CPT CODE: [id number] INDICATION: Acute chest pain PROTOCOL: 10.0 mCi [...] MD Report Verified Date/Time:08/16/2018 13:16:03 Reading Location: [address] Reading Room Procedure Note Interface, External Ris In - 08/16/2018 1:18 PM CDT FINAL REPORT PROCEDURE: V/Q LUNG SCAN CPT CODE: [id number] INDICATION: Acute chest pain PROTOCOL: 10.0 mCi [...] Report Verified Date/Time: 08/16/2018 13:16:03 Reading Location: [address] [address] Reading Room Performing Organization Address City/State/Zipcode Phone Number GE RIS Venous doppler legs bilateral (08/16/2018 8:55 AM CDT) Ejection Fraction [facility] eFansON CPA Specimen Impressions Performed At Right Impression [facility] 1. There is no deep venous [...] PV LAB - Lower Extremities DVT Study [facility] Carreira BeautyESSON CPA Demographics Patient CLARICE Banks Date of Study 08/16/2018 63 Visit [id number] Male of 1955 Number Referring Raul Brown Number [id number] Physician Editor Managing Director Kendall Sales. InterpretingDelano Quezada RVT, Joselito VAN, [...] of Study 08/16/2018 Age 63 Visit Number [id number] Gender Male Date of 1955 Number [facility] Number [id number] Physician Editor Managing Director Kendall Sales. Interpreting Delano Quezada RVT, SADIAS [...] pH, Paul 7.48 (H) 7.32 - 7.42 [facility] pCO2, Paul 45 41 - 51 mmHg [facility] pO2, Paul 76 (H) 25 - 40 mmHg [facility] O2 Sat, Paul 96.0 (H) 40.0 - 70.0 % [facility] HCO3, Paul 33 (H) 21 - 29 mmol/L [facility] Base Excess, Paul 8.3 (H) -2.0 - 3.0 mmol/L [facility] Patient Temperature 37.0 C [facility] FIO2 40.0 % [facility] Specimen Blood Performing Organization Address City/[facility]/Zipcode Phone Number [facility] [address] [place] [address] CENTER XR abdomen / KUB 1 view (08/16/2018 1:21 AM CDT) Specimen Narrative Performed At FINAL REPORT [facility] Abdomen one view Comparison: None. Reason for [...] MD Report Verified Date/Time:08/16/2018 02:06:47 Reading Location: [facility] B1 C013Y CT Body Reading Room [...] Report Verified Date/Time: 08/16/2018 02:06:47 Reading Location: [facility] C013Y CT Body Reading Room Performing Organization Address City/[facility] Phone Number RIS Blood culture (08/15/2018 10:46 PM CDT)Only the most recent of2 resultswithin the time period is included. Result No growth in 5 days [facility] Specimen Blood Performing Organization Address [facility] Phone Number [address] [address] CENTER POCT-HEMATOCRIT (08/15/2018 10:40 PM CDT)Only the most recent of2 resultswithin the time period is included. POC-Hematocrit 29 (L)Comment: TESTED AT 40 - 50 % [address] [address] Specimen Blood Performing Organization Address [facility] Phone Number [address] [address] [phone] CENTER POCT-HEMOGLOBIN (08/15/2018 10:40 PM CDT)Only the most recent of2 resultswithin the time period is included. POC-Hemoglobin 9.9 (L)Comment: TESTED AT 13.0 - 16.8 g/dL [address] [address]MNPVPM AT [address] [address] Specimen Blood Performing Organization Address [facility] Phone Number [address] [address] CENTER POCT-GLUCOSE (08/15/2018 10:40 PM CDT)Only the most recent of2 resultswithin the time period is included. POC-Glucose 257 (H)Comment: TESTED AT 70 - 110 mg/dL [address] [address] Specimen Blood Performing Organization Address [facility] Phone Number [address] [address] [phone] CENTER POC-Sodium (08/15/2018 10:40 PM CDT)Only the most recent of2 resultswithin the time period is included. POC-Sodium 133 (L)Comment: TESTED AT 135 - 148 meq/L [address] [address] Specimen Blood Performing Organization Address [facility] Phone Number [address] [address] [phone] CENTER POC-Potassium (08/15/2018 10:40 PM CDT)Only the most recent of2 resultswithin the time period is included. POC-Potassium 3.8Comment: TESTED AT [facility] 3.6 - 5.5 meq/L [address] [address] Specimen Blood Performing Organization Address [facility] Phone Number [address] [address] CENTER POC-Calcium ionized (08/15/2018 10:40 PM CDT)Only the most recent of2 resultswithin the time period is included. POC-Calcium Ionized 1.05 (L)Comment: 1.12 - 1.27 mmol/L [facility] TESTED AT [address] [address] Specimen Blood Performing Organization Address [facility] Phone Number [address] [phone] [place] POC-Blood gases, arterial (08/15/2018 10:40 PM CDT)Only the most recent of2 resultswithin the time period is included. Temp. Celsius-POC 38.3 [facility] FIO2-POC Comment: TESTED AT [address] [address] pH, Arterial-POC 7.423 7.350 - 7.450 [facility] PCO2, Arterial-POC 30.6 (L) 35.0 - 45.0 mm Hg [facility] PO2, Arterial-POC 69.0 (L) 80.0 - 90.0 mm Hg [facility] SO2, Arterial-POC 93.0 (L) 96.0 - 97.0 % [facility] HCO3, Arterilal-POC 19.8 (L) 21.0 - 29.0 meq/L [facility] BE, Arterial-POC -4.0 (L) -2.0 - 3.0 meq/L [facility] Specimen Blood Performing Organization Address [facility] Phone Number [address] [address] [place] POC-Lactic Acid, Arterial (08/15/2018 10:35 PM CDT) POC-Lactic Acid, 1.6 (H)Comment: 0.4 - 1.3 mmol/L [facility] Arterial TESTED AT [address] [address] Specimen Blood Performing Organization Address City/[facility] Phone Number [address] [address] CENTER Potassium-Stat Lab (08/14/2018 1:11 PM CDT)Only the most recent of3 resultswithin the time period is included. Potassium 4.1 3.6 - 5.5 meq/L [facility] Specimen Blood, Arterial Performing Organization Address [facility] Phone Number [address] [address] [phone] [place] Sodium Na-Stat Lab (08/14/2018 1:11 PM CDT)Only the most recent of3 resultswithin the time period is included. Sodium 139 135 - 148 meq/L [facility] Specimen Blood, Arterial Performing Organization Address [facility] Phone Number [address] [address] [phone] [place] Glucose-Stat Lab (08/14/2018 1:11 PM CDT)Only the most recent of3 resultswithin the time period is included. Glucose 210 (H) 70 - 110 mg/dL [facility] Specimen Blood, Arterial Performing Organization Address [facility] Phone Number [address] [address] [phone] CENTER HGB/HCT (H&H)-Stat Lab (08/14/2018 1:11 PM CDT)Only the most recent of3 resultswithin the time period is included. Hemoglobin 11.0 (L) 13.0 - 16.8 g/dL [facility] Hematocrit 32.0 (L) 40.0 - 50.0 % [facility] Specimen Blood, Arterial Performing Organization Address [facility] Phone Number [address] [address] [phone] CENTER Tissue Exam (08/14/2018 9:24 AM CDT) Case Report Surgical Pathology Report Case: [id number] [facility] Authorizing Provider:Víctor Sam MDCollected: 08/14/2018 0924 [facility] Ordering Location: [facility] PERIOPERATIVE Received: 08/14/2018 1156 CENTER SERVICES [...] performed at the request of the oncologist. [facility] IHC testing for all four MMR proteins was performed on selected block B5 with appropriate controls. CENTER RESULTS MLH1: Intact nuclear expression MSH2: Intact nuclear expression MSH6: Intact nuclear expression PMS2: Intact nuclear expression IHC Interpretation No loss of nuclear expression of MMR proteins: MMR proficient Additional CPT codes: 13533 x 4 ADDENDUM A PD-L1 study result from [facility] is available on 2018, performed on designated liver tissue, as requested by Dr. David Srinivasan and received by Dr. Tex Quezada pm 05/26/2019.. [facility] The study is NEGATIVE; CENTER see entire scanned report from 05/26/2019, and FAXed data from 05/31/2019.. DIAGNOSIS A. GALLBLADDER, CHOLECYSTECTOMY: [facility] - CHRONIC CHOLECYSTITIS, CHOLESTEROLOSIS [facility] B. LIVER, SEGMENT 5/6, HEPATIC SEGMENTECTOMY: - [...] FOR MALIGNANCY Signing Pathologist Direct Phone Line: [phone] COMMENT Immunohistochemical stains were performed on block B5, with the following results: [facility] - CK 7, CK 19, [...] BILE DUCTS(Bile Duct IH - All Specimens) [facility] SPECIMEN Procedure:Partial hepatectomy TUMOR Histologic Type:Intrahepatic cholangiocarcinoma [...] ADDITIONAL FINDINGS Additional Pathologic Findings:Steatosis CPT Code(s) 34456 x 3, 71155, 41838 x 2, [facility] 50721 x 3; 04078 x 1; 64379 x9 [facility] CLINICAL HISTORY Cholangiocarcinoma, treated [facility] with chemotherapy. [facility] SPECIMEN SOURCE A. Gallbladder. B. Liver [facility] segment 6. C. Liver additional [facility] [...] average. No masses or infiltrations are identified. Supervisor Travel Trailer sections are submitted as f [facility] ollows: A1, cystic duct margin; A2, shared services representative sections neck to body, body to fundus; A3, shared services representative sections of body of the gallbladder [...] the liver parenchyma appears black-brown and dusky. Supervisor Travel Trailer sections are submitted as follows. Section code: [...] and smaller nodules; B13 and B14 , shared services representative sections of additional grossly uninvolved liver [...] yellow liver parenchyma with no masses identified. Supervisor Travel Trailer sections are submitted as follows: cassette FSC1 to FSC3, new margin; C4 and C5, shared services representative sections of possible previous resection margin; [...] five cassettes. DH/pl INTRAOPERATIVE FROZEN SECTION DIAGNOSIS: [facility] CONSULTATION B. FSB1, LIVER, SEGMENT 6, PARTIAL HEPATECTOMY: [facility] - POSITIVE FOR MALIGNANCY CONSISTENT WITH CHOLANGIOCARCINOMA CENTER Reported by Dr. Olivier at 12:33 p.m. C. FSC1, LIVER, ADDITIONAL PARENCHYMA FOR FROZEN, PARTIAL HEPATECTOMY: - NEGATIVE FOR MALIGNANCY Reported by Dr. Olivier at 1:33 p.m. MICROSCOPIC DESCRIPTION A-D. Performed. [facility] SPECIAL STUDIES The following special studies were performed on this case and the interpretation is incorporated in the diagnostic report above: [facility] Immunohistochemical stains performed on block B5: [facility] Arginase, CAM5.2, CDX2, CEA, CK7, CK19, CK20, Glypican-3, Hep-Par 1 and MOC- 31. CENTER The immunohistochemistry test was developed and its performance characteristics determined by [facility]. It has not been [...] At Performing Organization Address City/State/Zipcode Phone Number [facility] [address] [place] [address] CENTER ANESTHESIA SPINAL BLOCK (08/14/2018 8:36 AM [...] sitting Prep: Betadine Patient monitoring: heart rate, ekg monitor tech and continuous pulse ox Location: L3-4 Injection [...] sitting Prep: Betadine Patient monitoring: heart rate, ekg monitor tech and continuous pulse ox Location: L3-4 Injection technique: single-shot Needle Needle type: pencil-tip Needle gauge: 25 G Needle length: 10 cm Assessment Sensory level: T10 Events: cerebrospinal fluid Additional Notes Pt tolerated the procedure well. after 08/09/2018 Insurance Payer Benefit Plan / Subscriber ID Type Phone Address Group BLUE CROSS/BLUE BCBS OS xxxxxxxxxxxx PPO [phone] [address] [employer]/[place] [address] (Home) [place] [address] Advance Directives For more information, please contact:[address] [phone] Code Status Date Activated Date Inactivated Comments Full Code 08/14/2018 7:13 AM 08/23/2018 5:59 PM This code status was determined by: Patient
[2019-08-10] MEDS ORDERED: NA CHLORIDE 0.9% 2,000 ML ONE (20:50)
[2019-08-10] MEDS ORDERED: NA CHLORIDE 0.9% 50 ML IV ONE (20:55)
[2019-08-10] MEDS ORDERED: NA CHLORIDE 0.9% 100 ML IV ONE (20:55)
[2019-08-10 21:13] LABS: Absolute Lymphocytes (CBC) 1.2 K/uL (0.7-4.9); Basophils % 0.5 % (0-1.3); Hematocrit 31.1 % (39.6-49.0); Lymphocytes % 9.6 % (15.3-44.8); MPV 8.2 fL (7.6-11.3); RBC Red Blood Cell Count 3.71 M/uL (4.33-5.43)
[2019-08-10 21:35] LABS: ALT/SGPT 13 U/L (12-78); AST/SGOT 15 U/L (15-37); Albumin 2.2 g/dL (3.4-5.0); Alkaline Phosphatase 117 U/L (45-117); BUN Blood Urea Nitrogen 13 mg/dL (7-18); Bicarbonate 23 mmol/L (21-32); Bilirubin Direct 0.1 mg/dL (0-0.2); Bilirubin Total 0.3 mg/dL (0.2-1.0); CKMB Creatine Kinase MB 1.7 ng/mL (0.3-3.6); Creatine Phosphokinase 30 U/L (39-308); Glucose Level 118 mg/dL (74-106); Lipase 239 U/L (73-393); Protein, Total 5.2 g/dL (6.4-8.2); Sodium Level 143 mmol/L (136-145); Troponin (Emerg Dept Use Only) < 0.02 ng/mL (0.0-0.045)
[2019-08-10 21:36] LABS: Potassium 2.4 mmol/L (3.5-5.1)
[2019-08-10 21:47] LABS: Protime INR 1.04
[2019-08-10] MEDS ORDERED: KCL 20 MEQ/100 mL IVPB 20 MEQ/100 ML BAG IV ONE (22:07)
[2019-08-10] MEDS ORDERED: POTASSIUM 25 MEQ EFFERV TAB ONE (22:07)
[2019-08-10] MEDS ORDERED: POTASSIUM CL SA 10 MEQ TAB PO ONE (22:14)
[2019-08-10 22:20] LABS: Anisocytosis 2+; Blood Morphology Comment NOTED (NOT SEEN); Platelet Estimate ADEQ
--- NOTE | 2019-08-10 23:16 | ER ---
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 Transition of care: patient was not received from another setting of care. Onset of symptoms was August 10, 2019. Risk Assessment: Do you want to hurt yourself or someone else? Patient reports no desire to harm self or others. Initial Sepsis Screen: Does the patient meet any 2 criteria? Mean Arterial Pressure (MAP) < 65. HR > 90 bpm. Does the patient have a suspected source of infection? Yes: Other: Chemo pt. Initial Sepsis Screen: If YES to both, name of provider notified: Patrick Dominguez MD. Care prior to arrival: None. 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 - Social history:: Smoking status: Patient/guardian denies using tobacco. - Ebola Screening: : No symptoms or risks identified at this time. Screenin:49 Abuse screen: Denies threats or abuse. Nutritional screening: pt reporting loosing jd3 weight and lack of appetite due to the Chemo therapy. Tuberculosis screening: No symptoms or risk factors identified. Fall Risk IV access (20 points). Ambulatory Aid- None/Bed Rest/Nurse Assist (0 pts). Gait- Normal/Bed Rest/Wheelchair (0 pts) Mental Status- Oriented to own ability (0 pts). Total Elizondo Fall Scale indicates No Risk (0-24 pts). Assessment: 20:35 General: Appears in no apparent distress. uncomfortable, Behavior is calm, cooperative, jd3 appropriate for age. Pain: Denies pain. Neuro: Level of Consciousness is awake, alert, obeys commands, Oriented to person, place, time, situation. Cardiovascular: Reports fatigue, Heart tones S1 S2 present Capillary refill < 3 seconds Patient's skin is warm and dry. Rhythm is sinus tachycardia. Respiratory: Reports shortness of breath at rest Airway is patent Respiratory effort is even, unlabored, Respiratory pattern is regular, symmetrical, Breath sounds are clear bilaterally. GI: No signs and/or symptoms were reported involving the gastrointestinal system. : No signs and/or symptoms were reported regarding the genitourinary system. EENT: No signs and/or symptoms were reported regarding the EENT system. Derm: Skin is intact, Skin is dry, Skin is pale, Skin temperature is warm. Musculoskeletal: Circulation, motion, and sensation intact. Range of motion: intact in all extremities, Swelling present in right leg and left leg. 21:50 Reassessment: Patient appears in no apparent distress at this time. Patient and/or jd3 family updated on plan of care and expected duration. Pain level reassessed. Patient is alert, oriented x 3, equal unlabored respirations, skin warm/dry/pink. Patient states feeling better. 22:45 Reassessment: Patient appears in no apparent distress at this time. Patient and/or jd3 family updated on plan of care and expected duration. Pain level reassessed. Patient is alert, oriented x 3, equal unlabored respirations, skin warm/dry/pink. provider at bedside discussing plan of care. 23:49 Reassessment: Patient appears in no apparent distress at this time. Patient and/or jd3 family updated on plan of care and expected duration. Pain level reassessed. Patient is alert, oriented x 3, equal unlabored respirations, skin warm/dry/pink. awaiting admission orders. 08/11 00:38 Reassessment: Patient appears in no apparent distress at this time. Patient and/or jd3 family updated on plan of care and expected duration. Pain level reassessed. Patient is alert, oriented x 3, equal unlabored respirations, skin warm/dry/pink. resting in bed with eyes closed, even and unlabored respirations, call castorena in reach. Patient states feeling better. 01:32 Reassessment: Patient appears in no apparent distress at this time. Patient and/or jd3 family updated on plan of care and expected duration. Pain level reassessed. Patient is alert, oriented x 3, equal unlabored respirations, skin warm/dry/pink. pt denies pain, awaiting room assignment. 02:20 Reassessment: Patient appears in no apparent distress at this time. Patient and/or [facility] family updated on plan of care and expected duration. Pain level reassessed. Patient is alert, oriented x 3, equal unlabored respirations, skin warm/dry/pink. charting continued in [facility]. report given to Janene WHITING. Patient denies pain at this time. Vital Signs: 08/10 20:31 BP 60 / 44; Pulse 104; Resp 18; Temp 97.2; Pulse Ox 98% on R/A; Weight 72.57 kg; Height la1 5 ft. 6 in. (167.64 cm); 21:15 BP 106 / 62; Pulse 95; Resp 19 S; Pulse Ox 100% on R/A; Pain 0/10; jd3 21:44 BP 108 / 85; Pulse 97; Resp 17 S; Pulse Ox 99% on R/A; Pain 0/10; d3 22:55 BP 112 / 63; Pulse 90; Resp 20 S; Pulse Ox 100% on R/A; Pain 0/10; jd3 23:48 BP 113 / 68; Pulse 92; Resp 20 S; Pulse Ox 96% on R/A; Pain 0/10; d3 08/11 00:39 BP 117 / 67; Pulse 89; Resp 18 S; Pulse Ox 98% on R/A; Pain 0/10; d3 01:33 BP 102 / 63; Pulse 91; Resp 19 S; Pulse Ox 100% on R/A; Pain 0/10; d3 08/10 20:31 Body Mass Index 25.82 (72.57 kg, 167.64 cm) la1 ED Course: 08/10 20:08 Patient arrived in ED. ds1 20:08 Tesha Alonzo MD is Private Physician. ds1 20:31 Arm band placed on left wrist. la1 20:33 Triage completed. la1 20:37 [facility] pm1 20:37 Patrick Dominguez MD is Attending Physician. pm1 21:07 Accessed Port-a-Cath. using accessed w/ # 20 Rogel needle, ,sterile technique, per [address] protocol. Clean \T\ dry. Dressing intact. Good blood return. Flushes easily. 21:44 Arya Jules, HENOK is Primary Nurse. jd3 21:48 Patient has correct armband on for positive identification. Bed in low position. Call jd3 light in reach. Side rails up X2. Adult w/ patient. cardiac monitor technician on. Pulse ox on. NIBP on. 22:04 Chest Single View XRAY In Process Unspecified. EDMS 23:15 Az Mckinney DO is Hospitalizing Provider. pm1 08/11 00:41 No provider procedures requiring assistance completed. Patient admitted, IV remains in jd3 place. 01:31 Urine Microscopic Only Sent. jd3 Administered Medications: 08/10 20:53 Drug: NS 0.9% (30 ml/kg) 30 ml/kg Route: IV; Rate: bolus; Site: Port-a-cath; bb 08/11 00:43 Follow up: Response: No adverse reaction; IV Status: Completed infusion jd3 08/10 22:18 Drug: Potassium Chloride 20 mEq Route: IV; Rate: calculated rate; Site: Port-a-cath; jd3 23:15 Follow up: Response: No adverse reaction; IV Status: Completed infusion; IV Intake: jd3 100ml 22:18 Not Given (Patient Refused): Potassium Effervescent Tablet 50 mEq PO once; dissolve in jd3 4 ounces of water or juice 22:18 Drug: Potassium Chloride 40 mEq Route: PO; jd3 22:58 Follow up: Response: No adverse reaction jd3 Intake: 23:15 IV: 100ml; Total: 100ml. jd3 Outcome: 23:16 Decision to Hospitalize by Provider. pm1 08/11 02:20 Admitted to ER Hold. Please see [facility] for further documentation. jd3 Condition: stable Instructed on the need for admit, Demonstrated understanding of instructions. 08:17 Patient left the ED. Signatures: Dispatcher [employer] EDMS Kerry Wright RN RN ch Sanford, Demi ds1 Ruth Sarmiento RN RN bb Jhonatan Aguillon RN RN la1 John Anaya, REGISTERED NURSE BONE MARROW TRANSPLANT REGISTERED NURSE BONE MARROW TRANSPLANT pm1 Arya Jules RN RN jd3 Corrections: (The following items were deleted from the chart) 00:41 08/10 20:35 Musculoskeletal: Circulation, motion, and sensation intact. Range of jd3 motion: intact in all extremities, jd3
--- NOTE | 2019-08-10 23:17 | EDPHYS ---
Physician Documentation [facility] Name: Seth Oconnor Age: 64 yrs Sex: Male : 1955 Arrival Date: 08/10/2019 Time: 20:08 Bed 25 Private MD: Tesha Alonzo ED Physician Patrick Dominguez HPI: 08/10 21:06 This 64 yrs old Male presents to ER via Wheelchair with complaints of Low Blood pm1 Pressure. 21:06 Onset: The symptoms/episode began/occurred low blood pressure today with home device. pm1 Modifying factors: The symptoms are aggravated by lack of PO food and liquids. Associated signs and symptoms: Pertinent positives: occasional cough, Pertinent negatives: abdominal pain, chest pain, diarrhea, fever, headache, shortness of breath, sore throat, vomiting, chills. chemotherapy on 07/30. Patient reports that chemo makes all food and water taste metallic. He has not been eating or drinking much for the past 2 days. Historical: - Allergies: 20:33 No Known Allergies; la1 - PMHx: 20:33 Cancer; Bile duct carcinoma; Diabetes - IDDM; Hypertension; la1 - Immunization history:: Adult Immunizations up to date. - Social history:: Smoking status: Patient/guardian denies using tobacco. - Ebola Screening: : No symptoms or risks identified at this time. ROS: 21:06 Constitutional: Negative for fever, chills, and weight loss, Eyes: Negative for injury, pm1 pain, redness, and discharge, ENT: Negative for injury, pain, and discharge, Neck: Negative for injury, pain, and swelling, Cardiovascular: Negative for chest pain, palpitations, and edema, Respiratory: Negative for shortness of breath, cough, wheezing, and pleuritic chest pain, Abdomen/GI: Negative for abdominal pain, nausea, vomiting, diarrhea, and constipation, Back: Negative for injury and pain, : Negative for injury, bleeding, discharge, and swelling, MS/Extremity: Negative for injury and deformity, Skin: Negative for injury, rash, and discoloration, Neuro: Negative for headache, weakness, numbness, tingling, and seizure. Exam: 21:06 Constitutional: This is a well developed, well nourished patient who is awake, alert, pm1 and in no acute distress. Head/Face: Normocephalic, atraumatic. Neck: Trachea midline, no thyromegaly or masses palpated, and no cervical lymphadenopathy. Supple, full range of motion without nuchal rigidity, or vertebral point tenderness. No Meningismus. Chest/axilla: Normal chest wall appearance and motion. Nontender with no deformity. No lesions are appreciated. Cardiovascular: Regular rate and rhythm with a normal S1 and S2. No gallops, murmurs, or rubs. Normal PMI, no JVD. No pulse deficits. Respiratory: Lungs have equal breath sounds bilaterally, clear to auscultation and percussion. No rales, rhonchi or wheezes noted. No increased work of breathing, no retractions or nasal flaring. Abdomen/GI: Soft, non-tender, with normal bowel sounds. No distension or tympany. No guarding or rebound. No evidence of tenderness throughout. Back: No spinal tenderness. No costovertebral tenderness. Full range of motion. Skin: Warm, dry with normal turgor. Normal color with no rashes, no lesions, and no evidence of cellulitis. MS/ Extremity: Pulses equal, no cyanosis. Neurovascular intact. Full, normal range of motion. 21:06 Neuro: Orientation: is normal, Motor: is normal, moves all fours. Vital Signs: 20:31 BP 60 / 44; Pulse 104; Resp 18; Temp 97.2; Pulse Ox 98% on R/A; Weight 72.57 kg; Height la1 5 ft. 6 in. (167.64 cm); 21:15 BP 106 / 62; Pulse 95; Resp 19 S; Pulse Ox 100% on R/A; Pain 0/10; jd3 21:44 BP 108 / 85; Pulse 97; Resp 17 S; Pulse Ox 99% on R/A; Pain 0/10; jd3 22:55 BP 112 / 63; Pulse 90; Resp 20 S; Pulse Ox 100% on R/A; Pain 0/10; jd3 23:48 BP 113 / 68; Pulse 92; Resp 20 S; Pulse Ox 96% on R/A; Pain 0/10; jd3 08/11 00:39 BP 117 / 67; Pulse 89; Resp 18 S; Pulse Ox 98% on R/A; Pain 0/10; jd3 01:33 BP 102 / 63; Pulse 91; Resp 19 S; Pulse Ox 100% on R/A; Pain 0/10; jd3 08/10 20:31 Body Mass Index 25.82 (72.57 kg, 167.64 cm) la1 MDM: 08/10 20:37 Patient medically screened. pm1 23:00 Counseling: I had a detailed discussion with the patient and/or guardian regarding: the pm1 historical points, exam findings, and any diagnostic results supporting the discharge/admit diagnosis, lab results, radiology results, the need for further work-up and treatment in the hospital. 23:13 Data reviewed: vital signs. Data interpreted: Pulse oximetry: on room air is 100 %. pm1 Interpretation: normal. 23:15 Physician consultation: Az Mckinney DO was called at 23:10, was contacted at 23:10, pm1 regarding admission, patient's condition, and will see patient in ED. 08/10 20:42 Order name: Basic Metabolic Panel; Complete Time: 21:55 pm08/10 20:42 Order name: Blood Culture Adult (2) pm1 08/10 20:42 Order name: CBC with Diff; Complete Time: 22:45 pm08/10 20:42 Order name: Ckmb; Complete Time: 21:55 pm08/10 20:42 Order name: CPK; Complete Time: 21:55 pm08/10 20:42 Order name: Lactate; Complete Time: 21:55 pm08/10 20:42 Order name: LFT's; Complete Time: 21:55 pm08/10 20:42 Order name: Lipase; Complete Time: 21:55 pm08/10 20:42 Order name: Procalcitonin; Complete Time: 21:55 pm08/10 20:42 Order name: Protime (+inr); Complete Time: 21:59 pm08/10 20:42 Order name: Ptt, Activated; Complete Time: 21:59 pm08/10 20:42 Order name: Troponin (emerg Dept Use Only); Complete Time: 21:55 pm08/10 20:42 Order name: Urine Microscopic Only; Complete Time: 02:32 pm1 08/10 20:42 Order name: Flu; Complete Time: 21:55 pm08/10 21:23 Order name: Manual Differential; Complete Time: 22:45 EDMS 08/11 01:31 Order name: Urine Dipstick--Ancillary (enter results) em1 08/11 01:48 Order name: Urine Dipstick-Ancillary; Complete Time: 02:32 EDMS 08/11 05:10 Order name: CBC with Automated Diff; Complete Time: 05:55 EDMS 08/11 05:27 Order name: Basic Metabolic Panel; Complete Time: 05:55 EDMS 08/11 05:27 Order name: Magnesium; Complete Time: 05:55 EDMS 08/11 06:15 Order name: Lactate Sepsis 2 HR Follow-up; Complete Time: 05:55 EDMS 08/10 20:42 Order name: Chest Single View XRAY; Complete Time: 05:55 pm1 08/10 20:42 Order name: Accucheck; Complete Time: 21:05 pm1 08/10 20:42 Order name: Cardiac monitoring; Complete Time: 21:05 pm1 08/10 20:42 Order name: EKG - Nurse/Tech; Complete Time: 21:05 pm1 08/10 20:42 Order name: IV Saline Lock - Large Bore; Complete Time: 21:05 pm1 08/10 20:42 Order name: Labs collected and sent; Complete Time: 21:05 pm1 08/10 20:42 Order name: O2 Per Protocol; Complete Time: 21:05 pm1 08/10 20:42 Order name: O2 Sat Monitoring; Complete Time: 21:05 pm1 08/10 20:42 Order name: Urine Dipstick-Ancillary (obtain specimen); Complete Time: 01:30 pm1 Administered Medications: 20:53 Drug: NS 0.9% (30 ml/kg) 30 ml/kg Route: IV; Rate: bolus; Site: Port-a-cath; bb 08/11 00:43 Follow up: Response: No adverse reaction; IV Status: Completed infusion jd3 08/10 22:18 Drug: Potassium Chloride 20 mEq Route: IV; Rate: calculated rate; Site: Port-a-cath; jd3 23:15 Follow up: Response: No adverse reaction; IV Status: Completed infusion; IV Intake: jd3 100ml 22:18 Not Given (Patient Refused): Potassium Effervescent Tablet 50 mEq PO once; dissolve in jd3 4 ounces of water or juice 22:18 Drug: Potassium Chloride 40 mEq Route: PO; jd3 22:58 Follow up: Response: No adverse reaction jd3 Disposition: 08/10/19 23:16 Hospitalization ordered by Az Mckinney for Observation. Preliminary diagnosis are Hypokalemia, Dehydration. - Bed requested for Telemetry/MedSurg (observation). - Status is Observation. ch - Condition is Stable. - Problem is new. - Symptoms have improved. UTI on Admission? No Addendum: 08/25/2019 07:00 Co-signature as Attending Physician, Patrick Dominguez MD I agree with the assessment and t w4 plan of care. Signatures: Dispatcher [employer] EDMS Kerry Wright, RN RN ch Ruth Sarmiento, RN RN bb Jhonatan Aguillon RN RN la1 Jordyn Martinez RN RN cg John Anaya, DELIVERY TABLE OPERATOR DELIVERY TABLE OPERATOR pm1 Arya Jules RN RN jd3 Wadley, Terrence, MD MD tw4 Corrections: (The following items were deleted from the chart) 08/11 04:53 08/10 23:16 Hospitalization Ordered by Az Mckinney DO for Observation. Preliminary cg diagnosis is Hypokalemia; Dehydration. Bed requested for Telemetry/MedSurg (observation). Status is Observation. Condition is Stable. Problem is new. Symptoms have improved. UTI on Admission? No. pm1 08/11 08:17 04:53 08/10/2019 23:16 Hospitalization Ordered by Az Mckinney DO for Observation. Preliminary diagnosis is Hypokalemia; Dehydration. Bed requested for Telemetry/MedSurg (observation). Status is Observation. Condition is Stable. Problem is new. Symptoms have improved. UTI on Admission? No. cg
--- NOTE | 2019-08-10 23:51 | P.HP ---
Certification for Inpatient Patient admitted to: Observation With expected LOS: <2 Midnights Patient will require the following post-hospital care: Home Health Services Practitioner: I am a practitioner with admitting privileges, knowledge of patient current condition, hospital course, and medical plan of care. Services: Services provided to patient in accordance with Admission requirements found in Title 42 Section 412.3 of the Code of Federal Regulations Patient History Date of Service: 08/10/19 Primary Care Provider: Dr. Walls; GI/Oncology-[facility] Reason for admission: Poor appetite, fatigue History of Present Illness: 64-year-old [place] presented to the emergency room with increasing poor appetite and fatigue. 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 Patient was last hospitalized on 07/22/2019 through 07/25/19 for UTI. Patient has been receiving chemotherapy every other week. He primarily gets chemotherapy at [facility]. His last chemotherapy was on August 02. Next chemotherapy scheduled for August 13. He also reports having a paracentesis on August 02. Since being on chemotherapy patient has had poor appetite. There is a metallic taste to his mouth with food. He is not able to eat appropriately. He denies any significant nausea, diarrhea, fever, chills. Today he felt more weak. He came to the ER for further evaluation. In the ER patient found to be hypotensive. It initial blood pressure 60/44 with a heart rate of 104. Patient was given IV fluid boluses in the emergency room. Blood pressure improved to 112/63. On lab white count 12.6, hemoglobin 10.2. Platelet count of 523. Lactic acid slightly elevated at 2.6. Pro calcitonin negative. AST, ALT, lipase unremarkable. Sodium 143, potassium 2.4. BUN of 13, creatinine 1.37 with a GFR 52, glucose 118. Chest x-ray unremarkable. Influenza test negative. Patient was admitted for further treatment and observation. When I saw the patient ER, he appeared comfortable. Blood pressure improved. Patient without significant complaints except poor appetite since being on chemotherapy. He reports he is not eating appropriately. Patient's medications have changed significantly since the last seen in the hospital. He is currently on Lasix for the edema to the lower extremities and ascites. Since the last hospitalization he no longer takes allopurinol, Lipitor, Pepcid, Lantus, metoprolol, and Flomax. Patient is seen by oncology regularly. Allergies No Known Allergies Allergy (Verified 07/22/19 00:58) Home medications list reviewed: Yes Home Medications: Allopurinol [Zyloprim*] 100 mg PO DAILY 06/17/19 Atorvastatin Calcium [Lipitor] 40 mg PO BEDTIME 06/17/19 Famotidine 20 mg PO BID 06/17/19 Finasteride 5 mg PO DAILY 06/17/19 Gabapentin 200 mg PO BEDTIME 06/17/19 Insulin Aspart [Novolog] See Protocol SQ TID 06/17/19 Insulin Glargine Human [Lantus*] 20 units SQ BEDTIME 06/17/19 Metoprolol Succinate [Toprol Xl*] 25 mg PO DAILY 06/17/19 [place]-3S/Dha/Epa/Fish Oil [[place]-3 Fish Oil 1,000 mg Sfgl] 2 g PO BEDTIME Ondansetron [Ondansetron Odt] 8 mg PO Q8H PRN 06/17/19 Prochlorperazine [Compazine*] 5 mg PO Q6H PRN 06/17/19 Simethicone 80 mg PO Q6H PRN 06/17/19 Tamsulosin [Flomax*] 0.4 mg PO DAILY 06/17/19 Tramadol HCl [Ultram] 50 mg PO BID PRN 06/17/19 dexAMETHasone [Decadron*] 4 mg PO DAILY 06/17/19 Magic Mouthwash [Magic Mouthwash*] 15 ml PO QID PRN #1 btl 07/25/19 levoFLOXacin [Levaquin*] 500 mg PO DAILY #7 tab 07/25/19 - Past Medical/Surgical History Diabetic: Yes -: HTN -: Diabetes mellitus type 2 -: History of liver abscess -: Cholangiocarcinoma stage IV -: Chronic edema to the lower extremity -: Chronic pain -: BPH -: 25% liver resection -: Cholecystectomy -: Foot surgery -: Port-A-Cath in place Psychosocial/ Personal History: Patient is - Family History Family History: Reviewed- Non-Contributory - Social History Smoking Status: Never smoker Alcohol use: No CD- Drugs: No Caffeine use: Yes Place of Residence: Home Review of Systems General: Weakness, Malaise, As per HPI Eyes: Unremarkable ENT: Unremarkable Respiratory: Unremarkable Cardiovascular: Unremarkable Gastrointestinal: Unremarkable Genitourinary: Unremarkable Musculoskeletal: Unremarkable Integumentary: Unremarkable Neurological: Unremarkable Lymphatics: Unremarkable Physical Examination - Physical Exam General: Alert, In no apparent distress, Oriented x3, Cooperative HEENT: Atraumatic, Normocephalic, PERRLA, Other (Dry mucous membranes) Neck: Supple, No Thyromegaly Respiratory: Clear to auscultation bilaterally, Normal air movement Cardiovascular: Normal pulses, Regular rate/rhythm Gastrointestinal: Normal bowel sounds, Soft and benign, Non-distended, No ascites, No tenderness, No masses, No rebound, No guarding Musculoskeletal: No tenderness, No warmth Integumentary: Tenderness/swelling (1 to 2+ edema to the lower extremities bilateral) Neurological: Normal speech, Normal strength at 5/5 x4 extr, Normal tone, Normal affect - Studies Laboratory Data (last 24 hrs) 08/10/19 20:48: PT 12.3, INR 1.04, APTT 33.4 08/10/19 20:48: WBC 12.6 H, Hgb 10.2 L, Hct 31.1 L, Plt Count 523 H D 08/10/19 20:48: Sodium 143, Potassium 2.4 L*, BUN 13, Creatinine 1.37 H, Glucose 118 H, Total Bilirubin 0.3, AST 15, ALT 13, Alkaline Phosphatase 117, Lipase 239 Microbiology Data (last 24 hrs): 08/10/19 20:52 Nasopharnyx Influenza Type A Antigen Screen - Final 08/10/19 20:52 Nasopharnyx Influenza Type B Antigen Screen - Final Assessment and Plan - Plan Impression: Hypotension likely from volume depletion with acute renal injury and hypokalemia Poor appetite/moderate protein malnutrition likely related to chemotherapy Stage IV cholangiocarcinoma on chemotherapy Diabetes mellitus type 2, non-insulin dependent BPH Chronic pain Anemia of chronic disease History of ascites and edema related to his cancer Plan: Hypotension likely from volume depletion with acute renal injury and hypokalemia : Patient will be admitted for observation and treatment. Patient received IV fluid bolus in the emergency room. Blood pressure improved. Will continue with IV fluids at a low rate. Will replace electrolytes-potassium. Will monitor and adjust appropriately. Will provide medication for nausea. Patient takes Lasix for edema. He will likely require potassium supplementation at discharge. Will have dietary assess his malnutrition and make recommendation. Will provide oral supplementation-Ensure. Will provide DVT prophylaxis- Lovenox. Daytime hospitalist to continue his care tomorrow. Anticipate discharge tomorrow with clinical improvement and stability of potassium/oral intake. Poor appetite/moderate protein malnutrition likely related to chemotherapy: Encourage oral intake. Will have dietary assess and make recommendation. Provide liquid oral supplementation. Stage IV cholangiocarcinoma on chemotherapy: Patient has been getting chemotherapy every other week. Recent chemotherapy done August 02. Next chemotherapy August 13 at [facility]. Diabetes mellitus type 2, non-insulin dependent: Patient no longer takes Lantus due to hypoglycemia. Will continue to encourage oral intake. Will monitor Accu-Cheks and provide sliding scale as needed. BPH: Continue Proscar 5 mg daily. Chronic pain: Continue gabapentin 200 mg at bedtime. Anemia of chronic disease: Continue to monitor lab closely. History of ascites and edema related to his cancer: Continue with Lasix. Patient will require potassium supplementation at discharge. Discharge Plan: Home Plan to discharge in: 24 Hours - Advance Directives Does patient have a Living Will: Yes Does patient have a Durable POA for Healthcare: Yes - Code Status/Comfort Care Code Status Assessed: Yes (Patient is full code) Time Spent Managing Pts Care (In Minutes): 55
[2019-08-11 01:48] LABS: Urine Blood TRACE (NEG); Urine Glucose NEGATIVE (NEG); Urine Protein 1+ (NEG); Urine pH 5.5 (5.0-7.0)
[2019-08-11 01:50] VITALS: BMI 25.8
[2019-08-11 02:03] LABS: Urine Bacteria <20 /HPF (NONE SEEN); Urine Culture Reflex Order REFLEXED; Urine RBC <5 /HPF (NONE SEEN)
[2019-08-11] MEDS ORDERED: ACETAMINOPHEN 500 MG TAB PO PRN (02:54)
[2019-08-11] MEDS ORDERED: MAGIC MOUTHWASH 180 ML BTL PO PRN (02:54)
[2019-08-11] MEDS ORDERED: NACHLORIDE 0.45% 1,000 ML with POTASSIUM CL 10 MEQ IV SCH ×2 (02:54)
[2019-08-11] MEDS ORDERED: ONDANSETRON 4 MG/2 ML VIAL IV PRN (02:54)
[2019-08-11] MEDS ORDERED: SIMETHICONE 80 MG TAB PO PRN (02:54)
[2019-08-11] MEDS ORDERED: PROCHLORPERAZINE 5 MG TAB PO PRN (02:54)
[2019-08-11] MEDS: NACHLORIDE 0.45% 1,000 ML IV SCH ×2 (03:40→22:00)
[2019-08-11 05:03] LABS: Basophils % 0.6 % (0-1.3); Hematocrit 26.9 % (39.6-49.0); Lymphocytes % 8.4 % (15.3-44.8); MPV 7.7 fL (7.6-11.3); RBC Red Blood Cell Count 3.23 M/uL (4.33-5.43)
[2019-08-11 05:21] LABS: Magnesium 1.5 mg/dL (1.8-2.4)
[2019-08-11 05:26] LABS: Potassium 2.7 mmol/L (3.5-5.1)
[2019-08-11] MEDS ORDERED: Magnesium Sulfate 2gm IVPB 2 G/50 ML BAG IV ONE ×2 (05:50→05:58)
[2019-08-11] MEDS ORDERED: KCL 20 MEQ/100 mL IVPB 20 MEQ/100 ML BAG IV ONE (05:59)
[2019-08-11] MEDS: KCL 20 MEQ/100 mL IVPB 20 MEQ/100 ML BAG IV SCH ×3 (06:08→10:00)
[2019-08-11] MEDS: INSULIN -REGULAR HUMAN 50 UNIT/0.5 ML ML SQ SCH ×4 (07:30→21:00)
--- NOTE | 2019-08-11 08:08 | RAD REPORT ---
EXAM DESCRIPTION: RAD - Chest Single View - 08/10/2019 10:03 pm CLINICAL HISTORY: Hypotension Chest pain. COMPARISON: Chest Single View dated 08/07/2019; Chest Single View dated 07/21/2019; Chest Single View d ated 06/17/2019 FINDINGS: Portable technique limits examination quality. The lungs are underinflated but grossly clear. The heart is normal in size. Right-sided port catheter has tip in the SVC. IMPRESSION: No acute intrathoracic process suspected.
[2019-08-11] MEDS ORDERED: FUROSEMIDE 40 MG TABLET PO SCH (09:00)
[2019-08-11] MEDS: ENSURE HIGH PROTEIN 237 ML CAN PO SCH ×2 (09:36→15:15)
[2019-08-11] MEDS: ENOXAPARIN 40 MG/0.4 ML SQ SCH (09:37)
[2019-08-11] MEDS ORDERED: POTASSIUM 25 MEQ EFFERV TAB PO ONE (11:00)
[2019-08-11] MEDS ORDERED: POTASSIUM CL SA 10 MEQ TAB PO ONE ×2 (11:13→19:00)
--- NOTE | 2019-08-11 12:32 | P.PN ---
Subjective Date of Service: 08/11/19 Primary Care Provider: Dr. Walls; GI/Oncology-[facility] Chief Complaint: Poor appetite, fatigue Patient seen and examined at bedside with RN. Chart reviewed. Case discussed with patient at bedside this morning. Doing well overall no complaints to offer. Has been working with physical therapy this morning Review of Systems 10-point ROS is otherwise unremarkable Physical Examination - Vital Signs Temperature: 97.4 F Blood Pressure: 91/55 Pulse: 85 Respirations: 18 Pulse Ox (%): 100 - Physical Exam General: Alert, In no apparent distress HEENT: Atraumatic, PERRLA, EOMI Neck: Supple, JVD not distended Respiratory: Clear to auscultation bilaterally, Normal air movement Cardiovascular: Regular rate/rhythm, Normal S1 S2 Gastrointestinal: Normal bowel sounds, No tenderness Musculoskeletal: No tenderness Integumentary: No rashes Neurological: Normal speech, Normal tone, Normal affect Lymphatics: No axilla or inguinal lymphadenopathy - Studies Laboratory Data (last 24 hrs) 08/10/19 20:48: PT 12.3, INR 1.04, APTT 33.4 08/10/19 20:48: WBC 12.6 H, Hgb 10.2 L, Hct 31.1 L, Plt Count 523 H D 08/10/19 20:48: Sodium 143, Potassium 2.4 L*, BUN 13, Creatinine 1.37 H, Glucose 118 H, Total Bilirubin 0.3, AST 15, ALT 13, Alkaline Phosphatase 117, Lipase 239 Microbiology Data (last 24 hrs): 08/10/19 20:52 Nasopharnyx Influenza Type A Antigen Screen - Final 08/10/19 20:52 Nasopharnyx Influenza Type B Antigen Screen - Final Medications List Reviewed: Yes Assessment And Plan - Current Problems (Diagnosis) (1) Hypotension Current Visit: Yes Status: Acute Plan: Hypotension likely from volume depletion secondary to poor appetite related to chemotherapy -blood pressure is now much better than before. Will continue with IV fluids here in the hospital -will replace electrolytes -will hold Lasix at this time -encourage p.o. intake at this time with protein supplementation as well -PTOT consulted -will monitor closely Qualifiers: Hypotension type: orthostatic hypotension Qualified Code(s): I95.1 - Orthostatic hypotension (2) Generalized weakness Current Visit: No Status: Acute Plan: Generalized weakness most likely secondary to chemotherapy -physical therapy and occupational therapy has been consulted -patient working with them here in the hospital -will continue on that patient may require home health on discharge home (3) Cholangiocarcinoma Current Visit: No Status: Chronic Plan: Stage IV cholangiocarcinoma on chemotherapy -Patient has been getting chemotherapy every other week. -Recent chemotherapy done August 02. -Next chemotherapy August 13 at [facility]. - Plan Pending clinical improvement at this time. Will continue to have patient worked with physical therapy here in the hospital Discharge Plan: Home Plan to discharge in: 48 Hours - Code Status/Comfort Care Code Status Assessed: Yes Critical Care: No
--- NOTE | 2019-08-11 13:38 | EKG ---
Test Date: 2019-08-10 Test Time: 20:57:52 Academic Affairs Vice President: DEB MEASUREMENT RESULTS: Intervals: Rate: 94 RI: 156 QRSD: 74 QT: 434 QTc: 542 [place]: P: 81 RI: 156 QRS: 51 T: 67 INTERPRETIVE STATEMENTS: Normal sinus rhythm Low voltage QRS Septal infarct, age undetermined Abnormal ECG Compared to ECG 08/07/2019 00:25:27 Low QRS voltage now present Atrial premature complex(es) no longer present Myocardial infarct finding still present Electronically Signed On 08-11-19 13:37:43 CDT by Gabe Henderson
[2019-08-11 16:39] LABS: Magnesium 2.2 mg/dL (1.8-2.4); Potassium 3.4 mmol/L (3.5-5.1)
--- NOTE | 2019-08-11 17:00 | P.CNS ---
Date of Consult: 08/11/19 Reason for Consult: BECCA/ Hypokalemia Requesting Physician: Monet Armenta Primary Care Provider: Dr. Walls; GI[facility] Chief Complaint: Poor appetite, fatigue History of Present Illness: 64-year-old French presented to the emergency room with increasing poor appetite and fatigue. 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 Patient was last hospitalized on 07/22/2019 through 07/25/19 for UTI. Patient has been receiving chemotherapy every other week. He primarily gets chemotherapy at [facility]. His last chemotherapy was on August 02. Next chemotherapy scheduled for August 13. He also reports having a paracentesis on August 02. Since being on chemotherapy patient has had poor appetite. There is a metallic taste to his mouth with food. He is not able to eat appropriately. He denies any significant nausea, diarrhea, fever, chills. Today he felt more weak. He came to the ER for further evaluation. In the ER patient found to be hypotensive. It initial blood pressure 60/44 with a heart rate of 104. Patient was given IV fluid boluses in the emergency room. Blood pressure improved to 112/63. On lab white count 12.6, hemoglobin 10.2. Platelet count of 523. Lactic acid slightly elevated at 2.6. Pro calcitonin negative. AST, ALT, lipase unremarkable. Sodium 143, potassium 2.4. BUN of 13, creatinine 1.37 with a GFR 52, glucose 118. Chest x-ray unremarkable. Influenza test negative. Patient was admitted for further treatment and observation. 21:06 This 64 yrs old Male presents to ER via Wheelchair with complaints of Low Blood pm1 Pressure. 21:06 Onset: The symptoms/episode began/occurred low blood pressure today with home device. pm1 Modifying factors: The symptoms are aggravated by lack of PO food and liquids. Associated signs and symptoms: Pertinent positives: occasional cough, Pertinent negatives: abdominal pain, chest pain, diarrhea, fever, headache, shortness of breath, sore throat, vomiting, chills. chemotherapy on 07/30. Patient reports that chemo makes all food and water taste metallic. He has not been eating or drinking much for the past 2 days. Allergies No Known Allergies Allergy (Verified 07/22/19 00:58) Home medications list reviewed: Yes - Past Medical/Surgical History Diabetic: Yes -: HTN -: Diabetes mellitus type 2 -: History of liver abscess -: Cholangiocarcinoma stage IV with chemo last 08/01/19 -: Chronic edema to the lower extremity -: Chronic pain -: BPH -: 25% liver resection -: Cholecystectomy -: Foot surgery -: Port-A-Cath in place Psychosocial/ Personal History: Patient is - Social History Smoking Status: Unknown if ever smoked Alcohol use: Yes CD- Drugs: No Caffeine use: Yes Place of Residence: Home Review of Systems 10-point ROS is otherwise unremarkable General: Weakness, Malaise Cardiovascular: Edema Neurological: Weakness Physical Examination Temp Pulse Resp BP Pulse Ox 97.8 F 89 18 109/63 100 08/11/19 16:00 08/11/19 16:00 08/11/19 16:00 08/11/19 16:00 08/11/19 16:00 General: In no apparent distress, Oriented x3, Cooperative HEENT: Atraumatic Neck: Supple Respiratory: Clear to auscultation bilaterally Cardiovascular: Edema Gastrointestinal: Soft and benign, Non-distended Musculoskeletal: No clubbing, No contractures Integumentary: No rashes, No cyanosis Neurological: Normal speech Laboratory Data (last 24 hrs) 08/10/19 20:48: PT 12.3, INR 1.04, APTT 33.4 08/10/19 20:48: WBC 12.6 H, Hgb 10.2 L, Hct 31.1 L, Plt Count 523 H D 08/10/19 20:48: Sodium 143, Potassium 2.4 L*, BUN 13, Creatinine 1.37 H, Glucose 118 H, Total Bilirubin 0.3, AST 15, ALT 13, Alkaline Phosphatase 117, Lipase 239 Imagings Data: EXAM DESCRIPTION: RAD - Chest Single View - 08/10/2019 10:03 pm CLINICAL HISTORY: Hypotension Chest pain. COMPARISON: Chest Single View dated 08/07/2019; Chest Single View dated 07/21/2019 ; Chest Single View dated 06/17/2019 FINDINGS: Portable technique limits examination quality. The lungs are underinflated but grossly clear. The heart is normal in size. Right-sided port catheter has tip in the SVC. IMPRESSION: No acute intrathoracic process suspected. Conclusions/Impression: A/ BECCA improved with IVF. Hypokalemia. Hypocalcemia. Hypomagnesemia. Anemia in chronic illness. Thrombocytosis. Moderate malnutrition. DM II with CKD. Proteinuria. HTN with CKD. LE Edema. BPH with LUTS. P/ Continue current POC and Medications. Aggressive potassium replacement as ordered. Start spironolactone bid. Continue Lasix. Stop IVF this evening; bolus as needed. Restart home medications as indicated. Start Slo-mag. Start Vitamin D. No NSAIDs. AM labs. Daily weight. Thank you kindly for the consultation.
[2019-08-11] MEDS ORDERED: GABAPENTIN 100 MG CAP PO SCH (21:00)
[2019-08-11] MEDS ORDERED: FINASTERIDE 5 MG TAB PO SCH (21:00)
[2019-08-11] MEDS: ENSURE ENLIVE 237 ML CAN PO SCH (22:01)
[2019-08-11] MEDS: MAGNESIUM CHLORIDE 64 MG TAB PO SCH (23:00)
[2019-08-11] MEDS: SPIRONOLACTONE 25 MG TABLET PO SCH (23:34)
[2019-08-12 05:15] LABS: Absolute Lymphocytes (CBC) 0.9 K/uL (0.7-4.9); Basophils % 0.4 % (0-1.3); Hematocrit 25.1 % (39.6-49.0); Lymphocytes % 8.6 % (15.3-44.8); MPV 9.5 fL (7.6-11.3); RBC Red Blood Cell Count 2.84 M/uL (4.33-5.43)
[2019-08-12 05:37] LABS: ALT/SGPT 14 U/L (12-78); AST/SGOT 18 U/L (15-37); Albumin 2.9 g/dL (3.4-5.0); Alkaline Phosphatase 45 U/L (45-117); BUN Blood Urea Nitrogen 14 mg/dL (7-18); Bicarbonate 24 mmol/L (21-32); Bilirubin Total 0.3 mg/dL (0.2-1.0); Glucose Level 118 mg/dL (74-106); Phosphorus 3.7 mg/dL (2.5-4.9); Potassium 4.5 mmol/L (3.5-5.1); Protein, Total 6.1 g/dL (6.4-8.2); Sodium Level 136 mmol/L (136-145); Uric Acid 4.3 mg/dL (3.5-7.2)
[2019-08-12] MEDS: INSULIN -REGULAR HUMAN 50 UNIT/0.5 ML ML SQ SCH (07:30)
[2019-08-12 08:44] VITALS: O2SAT 96
[2019-08-12] MEDS ORDERED: VITAMIN D 5,000 UNIT CAP PO SCH (09:00)
[2019-08-12] MEDS ORDERED: CALCITROL 0.25 MCG CAP PO SCH (09:00)
[2019-08-12] MEDS: ENOXAPARIN 40 MG/0.4 ML SQ SCH (09:32)
[2019-08-12] MEDS: ENSURE ENLIVE 237 ML CAN PO SCH (09:33)
[2019-08-12] MEDS: SPIRONOLACTONE 25 MG TABLET PO SCH (09:33)
[2019-08-12] MEDS: MAGNESIUM CHLORIDE 64 MG TAB PO SCH (09:35)
[2019-08-12 12:14] VITALS: BP 98/62; TEMP 98.1
--- NOTE | 2019-08-12 12:32 | P.SSS ---
Patient History Date of Service: 08/12/19 Primary Care Provider: Dr. Walls; GI[facility] Reason for admission: Poor appetite, fatigue History of Present Illness: 64-year-old Lao presented to the emergency room with increasing poor appetite and fatigue. 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 Patient was last hospitalized on 07/22/2019 through 07/25/19 for UTI. Patient has been receiving chemotherapy every other week. He primarily gets chemotherapy at [facility]. His last chemotherapy was on August 02. Next chemotherapy scheduled for August 13. He also reports having a paracentesis on August 02. Since being on chemotherapy patient has had poor appetite. There is a metallic taste to his mouth with food. He is not able to eat appropriately. He denies any significant nausea, diarrhea, fever, chills. Today he felt more weak. He came to the ER for further evaluation. In the ER patient found to be hypotensive. It initial blood pressure 60/44 with a heart rate of 104. Patient was given IV fluid boluses in the emergency room. Blood pressure improved to 112/63. On lab white count 12.6, hemoglobin 10.2. Platelet count of 523. Lactic acid slightly elevated at 2.6. Pro calcitonin negative. AST, ALT, lipase unremarkable. Sodium 143, potassium 2.4. BUN of 13, creatinine 1.37 with a GFR 52, glucose 118. Chest x-ray unremarkable. Influenza test negative. Patient was admitted for further treatment and observation. When I saw the patient ER, he appeared comfortable. Blood pressure improved. Patient without significant complaints except poor appetite since being on chemotherapy. He reports he is not eating appropriately. Patient's medications have changed significantly since the last seen in the hospital. He is currently on Lasix for the edema to the lower extremities and ascites. Since the last hospitalization he no longer takes allopurinol, Lipitor, Pepcid, Lantus, metoprolol, and Flomax. Patient is seen by oncology regularly. Allergies No Known Allergies Allergy (Verified 07/22/19 00:58) Home Medications: Atorvastatin Calcium [Lipitor] 40 mg PO BEDTIME 08/12/19 Benzonatate 200 mg PO TID PRN 08/12/19 Cetirizine HCl/Pseudoephedrine [Zyrtec-D Tablet] 1 each PO BID PRN 08/12/19 Dronabinol [Marinol] 2.5 mg PO BID 08/12/19 Fidaxomicin [Dificid] 200 mg PO SEECOM 08/12/19 Furosemide [Lasix*] 20 mg PO DAILY PRN 08/12/19 Gabapentin [Neurontin*] 100 mg PO BEDTIME 08/12/19 Insulin Glargine,Hum.rec.anlog [Basaglar Kwikpen U-100] 62 units SQ DAILY Loperamide [Imodium*] 2 mg PO Q4H 08/12/19 Metformin HCl [Glucophage*] 500 mg PO BID 08/12/19 OLANZapine [Zyprexa Zydis] 5 mg PO SEECOM 08/12/19 Wellman-3 Acid Ethyl Esters 1 gm PO BEDTIME 08/12/19 Ondansetron [Zuplenz] 8 mg PO PRN PRN 08/12/19 Prochlorperazine [Compazine*] 5 mg PO PRN PRN 08/12/19 Simethicone [Mylicon*] 80 mg PO PRN PRN 08/12/19 Tamsulosin [Flomax*] 0.4 mg PO DAILY 08/12/19 Tramadol HCl [Ultram] 50 mg PO PRN PRN 08/12/19 dexAMETHasone [Decadron*] 4 mg PO BID 08/12/19 - Past Medical/Surgical History Has patient received pneumonia vaccine in the past: Yes Diabetic: Yes -: HTN -: Diabetes mellitus type 2 -: History of liver abscess -: Cholangiocarcinoma stage IV with chemo last 08/01/19 -: Chronic edema to the lower extremity -: Chronic pain -: BPH -: 25% liver resection -: Cholecystectomy -: Foot surgery -: Port-A-Cath in place Psychosocial/ Personal History: Patient is - Family History Family History: Reviewed- Non-Contributory - Social History Smoking Status: Never smoker Alcohol use: Yes CD- Drugs: No Caffeine use: Yes Place of Residence: Home Review of Systems 10-point ROS is otherwise unremarkable Physical Examination - Vital Signs Temperature: 98.1 F Blood Pressure: 98/62 Pulse: 95 Respirations: 18 Pulse Ox (%): 100 - Physical Exam General: Alert, In no apparent distress HEENT: Atraumatic, PERRLA, Mucous membr. moist/pink, EOMI, Sclerae nonicteric Neck: Supple, 2+ carotid pulse no bruit, No LAD, Without JVD or thyroid abnormality Respiratory: Clear to auscultation bilaterally, Normal air movement Cardiovascular: Regular rate/rhythm, Normal S1 S2 Gastrointestinal: Normal bowel sounds, No tenderness Musculoskeletal: No tenderness Integumentary: No rashes Neurological: Normal gait, Normal speech, Normal strength at 5/5 x4 extr, Normal tone, Normal affect Lymphatics: No axilla or inguinal lymphadenopathy - Studies Microbiology Data (last 24 hrs): 08/10/19 22:03 Blood - Blood Anaerobic Blood Culture - Final 08/10/19 21:42 Blood - Blood Anaerobic Blood Culture - Final - Diagnosis (Problem(s)) (1) Hypotension Current Visit: Yes Status: Acute Plan: Hypotension likely from volume depletion secondary to poor appetite related to chemotherapy -blood pressure is now much better than before. -will hold Lasix at this time -encourage p.o. intake at this time with protein supplementation as well -PTOT consulted. Did well with them -DC home today Qualifiers: Hypotension type: orthostatic hypotension Qualified Code(s): I95.1 - Orthostatic hypotension (2) Generalized weakness Current Visit: No Status: Acute Plan: Generalized weakness most likely secondary to chemotherapy -physical therapy and occupational therapy consulted -Doing well. Will DC home today (3) Cholangiocarcinoma Current Visit: No Status: Chronic Plan: Stage IV cholangiocarcinoma on chemotherapy -Patient has been getting chemotherapy every other week. -Recent chemotherapy done August 02. -Next chemotherapy August 13 at [facility]. - Disposition Disposition: ROUTINE DISCHARGE Condition: GOOD Diet: Regular Activity: Ad july
[2019-08-12] MEDS ORDERED: HEPARIN 500 UNIT/5 ML SYR IV PRN (14:01)
== END 2019-08-12 15:24 | disposition home or self-care (01) ==
LOC: ER 20:05 → ERHOLD 23:38 → 4TH 08-11 07:38
PROVIDERS: ADMIT Family Medicine; ATTEND Family Medicine
DX: I95.1 Orthostatic hypotension (principal); C22.1 Intrahepatic bile duct carcinoma; E11.9 Type 2 diabetes mellitus without complications; G89.29 Other chronic pain; G62.9 Polyneuropathy, unspecified; E86.9 Volume depletion, unspecified; N17.9 Acute kidney failure, unspecified; E87.6 Hypokalemia; E44.0 Moderate protein-calorie malnutrition; Z68.26 Body mass index [BMI] 26.0-26.9, adult; D63.8 Anemia in other chronic diseases classified elsewhere; R63.0 Anorexia; R53.1 Weakness; T45.1X5A Adverse effect of antineoplastic and immunosuppressive drugs, initial encounter; E83.51 Hypocalcemia; E83.42 Hypomagnesemia; D47.3 Essential (hemorrhagic) thrombocythemia; E11.22 Type 2 diabetes mellitus with diabetic chronic kidney disease; I12.9 Hypertensive chronic kidney disease with stage 1 through stage 4 chronic kidney disease, or unspecified chronic kidney disease; N18.9 Chronic kidney disease, unspecified; N40.1 Benign prostatic hyperplasia with lower urinary tract symptoms
CPT/HCPCS: 96365; 93005; 87040 ×2; 87088; 85025 ×3; 87086; 80048 ×2; 36415 ×2; 83735 ×3; 82550; 84100; 84132; 85610; 82962 ×6; 80076; 84550; 83605 ×2; 85730; 84484; 82553; 83690; 80053; 84145; 87804 ×2; 71045; 97110; 97112; 97116 ×2; 97161; 97530; 99285; 96366; J1650 ×2; J3475; J1642; J7030; G0378 ×3; 81003; 81015

== ENCOUNTER 2019-08-19 17:53 | Emergency (ER) | payer BC ==
[2019-08-19] MEDS ORDERED: NA CHLORIDE 0.9% 1,000 ML ONE (18:36)
[2019-08-19 19:01] LABS: Absolute Lymphocytes (CBC) 0.6 K/uL (0.7-4.9); Basophils % 0.7 % (0-1.3); Hematocrit 23.6 % (39.6-49.0); Lymphocytes % 20.3 % (15.3-44.8); MPV 7.5 fL (7.6-11.3); RBC Red Blood Cell Count 2.79 M/uL (4.33-5.43)
[2019-08-19 19:15] LABS: Bilirubin Direct 0.2 mg/dL (0-0.2); Bilirubin Total 0.6 mg/dL (0.2-1.0); Potassium 3.1 mmol/L (3.5-5.1); Protein, Total 4.9 g/dL (6.4-8.2)
[2019-08-19 19:21] LABS: Anisocytosis 1+; Blood Morphology Comment NOTED (NOT SEEN); Hypochromasia 1+; Platelet Estimate ADEQ; Urine White Blood Cell Casts OK
[2019-08-19] MEDS ORDERED: POTASSIUM 25 MEQ EFFERV TAB ONE (19:54)
[2019-08-19] MEDS ORDERED: POTASSIUM CL SA 10 MEQ TAB PO ONE (20:19)
--- NOTE | 2019-08-19 20:21 | EDPHYS ---
Physician Documentation [facility] Name: Seth Oconnor Age: 64 yrs Sex: Male : 1955 Arrival Date: 08/19/2019 Time: 17:55 Bed 6 Private MD: ED Physician Greg Crespo HPI: 08/19 19:50 This 64 yrs old Male presents to ER via Wheelchair with complaints of Generalized pm1 weakness. 19:50 The patient presents to the emergency department with weakness of the entire body, pm1 generalized weakness. Onset: The symptoms/episode began/occurred 2 day(s) ago. Context: history of biliary, liver and diaphragm cancer. Chemotherapy makes all PO consumption metallic . Associated signs and symptoms: Pertinent negatives: fever, headache. Severity of symptoms: in the emergency department the symptoms are unchanged Pain is currently a 0 / 10. The patient has experienced similar episodes in the past, several times. Patient does not have any chest pain, cough, or shortness of breath. Historical: - Allergies: 18:06 No Known Allergies; aj1 - Home Meds: 18:06 allopurinol 100 mg Oral tab 1 tab once daily [Active]; atorvastatin 40 mg Oral tab 1 aj1 tab once daily [Active]; Compazine 5 mg Oral tab 1 tab every 6 hours for Cancer Chemotherapy-Induced Nausea and Vomiting [Active]; dexamethasone 4 mg Oral tab 1 tab once daily [Active]; famotidine 20 mg Oral tab 1 tab 2 times per day [Active]; Flomax 0.4 mg Oral cp24 1 cap once daily [Active]; gabapentin 100 mg Oral cap 2 caps at bedtime [Active]; insulin aspart sliding scale 3 times daily before meals subcutaneous [Active]; Lantus 50units Sub-Q nightly [Active]; metoprolol succinate 25 mg Oral Tb24 1 tab once daily for Hypertension [Active]; omega-3 acid ethyl esters 1 gram Oral cap 2 caps at bedtime [Active]; ondansetron 8 mg Oral TbDL 1 tab every 8 hours [Active]; prochlorperazine maleate Oral [Active]; simethicone 80 mg Oral chew every 6 hours for Flatulence [Active]; tramadol 50 mg Oral tab 1 tab 2 times daily as needed for Pain [Active]; - PMHx: 18:06 Cancer; Bile duct carcinoma; Diabetes - IDDM; Hypertension; aj1 - Immunization history:: Flu vaccine is up to date. - Social history:: Smoking status: Patient/guardian denies using tobacco. - Ebola Screening: : Patient denies travel to an Ebola-affected area in the 21 days before illness onset. ROS: 19:50 Constitutional: Negative for fever, chills, and weight loss, Eyes: Negative for injury, pm1 pain, redness, and discharge, ENT: Negative for injury, pain, and discharge, Neck: Negative for injury, pain, and swelling, Cardiovascular: Negative for chest pain, palpitations, and edema, Respiratory: Negative for shortness of breath, cough, wheezing, and pleuritic chest pain, Abdomen/GI: Negative for abdominal pain, nausea, vomiting, diarrhea, and constipation, Back: Negative for injury and pain, MS/Extremity: Negative for injury and deformity, Skin: Negative for injury, rash, and discoloration. 19:50 Neuro: Positive for generalized weakness, Negative for headache, numbness, tingling. Exam: 19:50 Constitutional: This is a well developed, well nourished patient who is awake, alert, pm1 and in no acute distress. Head/Face: Normocephalic, atraumatic. Eyes: Pupils equal round and reactive to light, extra-ocular motions intact. Lids and lashes normal. Conjunctiva and sclera are non-icteric and not injected. Cornea within normal limits. Periorbital areas with no swelling, redness, or edema. ENT: Nares patent. No nasal discharge, no septal abnormalities noted. Tympanic membranes are normal and external auditory canals are clear. Oropharynx with no redness, swelling, or masses, exudates, or evidence of obstruction, uvula midline. Mucous membranes moist. Neck: Trachea midline, no thyromegaly or masses palpated, and no cervical lymphadenopathy. Supple, full range of motion without nuchal rigidity, or vertebral point tenderness. No Meningismus. Chest/axilla: Normal chest wall appearance and motion. Nontender with no deformity. No lesions are appreciated. Cardiovascular: Regular rate and rhythm with a normal S1 and S2. No gallops, murmurs, or rubs. Normal PMI, no JVD. No pulse deficits. Respiratory: Lungs have equal breath sounds bilaterally, clear to auscultation and percussion. No rales, rhonchi or wheezes noted. No increased work of breathing, no retractions or nasal flaring. Abdomen/GI: Soft, non-tender, with normal bowel sounds. No distension or tympany. No guarding or rebound. No evidence of tenderness throughout. Back: No spinal tenderness. No costovertebral tenderness. Full range of motion. Skin: Warm, dry with normal turgor. Normal color with no rashes, no lesions, and no evidence of cellulitis. MS/ Extremity: Pulses equal, no cyanosis. Neurovascular intact. Full, normal range of motion. 19:50 Neuro: Orientation: is normal, Motor: is normal, Sensation: is normal, no obvious gross deficits. Vital Signs: 18:06 BP 119 / 71; Pulse 107; Resp 20; Temp 98.9; Pulse Ox 100% on R/A; Weight 70.31 kg (R); aj1 Height 5 ft. 9 in. (175.26 cm) (R); Pain 0/10; 19:20 BP 108 / 62; Pulse 109; Resp 22; Temp 98.1(O); Pulse Ox 99% on R/A; Pain 4/10; ch 20:20 BP 112 / 75; Pulse 94; Resp 18; Temp 98.3; Pulse Ox 99% on R/A; Pain 0/10; ch 18:06 Body Mass Index 22.89 (70.31 kg, 175.26 cm) [facility] MDM: 18:16 Patient medically screened. pm1 20:14 Data reviewed: vital signs. Data interpreted: Pulse oximetry: on room air is 99 %. pm1 Interpretation: normal. Counseling: I had a detailed discussion with the patient and/or guardian regarding: the historical points, exam findings, and any diagnostic results supporting the discharge/admit diagnosis, lab results. 20:14 Physician consultation: Az Mckinney DO was called at 20:14, was contacted at 20:14, pm1 regarding consult, patient's condition, Patient had question from prior admission. Why he is back on lasix versus spirolactone? When he was in the hospital he had spirolactone. Patient's spirolactone was discontinued due to BECCA. Recommendation for patient now is to use Lasix as needed and take potassium 10 meq if he takes a lasix pill. Patient had iron deficiency anemia present during hospitalization. Give patient Fe supplements BID. 08/19 18:31 Order name: Basic Metabolic Panel; Complete Time: 19:17 pm1 08/19 18:31 Order name: CBC with Diff; Complete Time: 19:26 pm1 08/19 18:31 Order name: Hepatic Function; Complete Time: 19:17 pm1 08/19 18:31 Order name: Lipase; Complete Time: 19:17 pm1 08/19 19:12 Order name: CBC Smear Scan; Complete Time: 19:26 EDMS 08/19 20:09 Order name: Guiac em1 08/19 18:31 Order name: IV Saline Lock; Complete Time: 19: pm1 08/19 18:31 Order name: Labs collected and sent; Complete Time: : pm1 Administered Medications: 19:00 Drug: NS 0.9% 1000 ml Route: IV; Rate: 1000 ml; Site: Port-a-cath; tw2 20:37 Follow up: IV Status: Completed infusion; IV Intake: 1000ml ch 19:59 Not Given (Patient Refused): Potassium Effervescent Tablet 50 mEq PO once; dissolve in ch 4 ounces of water or juice 20:00 Drug: Potassium Chloride 40 mEq Route: PO; ch 20:37 Follow up: Response: No adverse reaction Disposition: 08/19/19 20:21 Discharged to Home. Impression: Anorexia - due to chemotherapy and cancer, Anemia, unspecified. - Condition is Stable. - Discharge Instructions: Iron Deficiency Anemia, Adult, Anemia, Nonspecific, Malnutrition. - Prescriptions for Potassium Chloride 10 mEq Oral Capsule, Sustained Release - take 1 tablet by ORAL route daily, as directed. Take 1 tab daily with lasix; 30 tablet. Ferrous Sulfate 325 mg (65 mg Iron) Oral Tablet - take 1 tablet by ORAL route every 12 hours; 60 tablet. - Medication Reconciliation Form, Thank You Letter, Antibiotic Education, Prescription Opioid Use form. - Follow up: Emergency Department; When: As needed; Reason: Worsening of condition. Follow up: Private Physician; When: 2 - 3 days; Reason: Recheck today's complaints, Continuance of care, Re-evaluation by your physician. - Problem is new. - Symptoms have improved. Signatures: Dispatcher [employer] EDKerry Upton RN RN ch Cindy Flores RN RN aj1 John Anaya, DRYWALL BOARDHANGER DRYWALL BOARDHANGER pm1 Mita Warren, RN RN tw2 Corrections: (The following items were deleted from the chart) 20:21 20:21 08/19/2019 20:21 Discharged to Home. Impression: Anemia, unspecified; Anorexia. pm1 Condition is Stable. Forms are Medication Reconciliation Form, Thank You Letter, Antibiotic Education, Prescription Opioid Use. Follow up: Emergency Department; When: As needed; Reason: Worsening of condition. Follow up: Private Physician; When: 2 - 3 days; Reason: Recheck today's complaints, Continuance of care, Re-evaluation by your physician. Problem is new. Symptoms have improved. pm1 20:51 20:21 08/19/2019 20:21 Discharged to Home. Impression: Anorexia - due to chemotherapy ch and cancerAnemia, unspecified. Condition is Stable. Forms are Medication Reconciliation Form, Thank You Letter, Antibiotic Education, Prescription Opioid Use. Follow up: Emergency Department; When: As needed; Reason: Worsening of condition. Follow up: Private Physician; When: 2 - 3 days; Reason: Recheck today's complaints, Continuance of care, Re-evaluation by your physician. Problem is new. Symptoms have improved. pm1
--- NOTE | 2019-08-19 20:21 | ER ---
Nurse's Notes [facility] Name: Seth Oconnor Age: 64 yrs Sex: Male : 1955 Arrival Date: 08/19/2019 Time: 17:55 Bed 6 Private MD: Diagnosis: Anemia, unspecified;Anorexia-due to chemotherapy and cancer Presentation: 08/19 18:03 Presenting complaint: Patient states: "I think my calcium is low, my potassium is low aj1 and I'm dehydrated" Patient reports that he is having chills and poor appetite and those are usually the symptoms he has when his calcium and potassium is low. Denies vomiting, denies diarrhea. Transition of care: patient was not received from another setting of care. Onset of symptoms was August 19, 2019. Risk Assessment: Do you want to hurt yourself or someone else? Patient reports no desire to harm self or others. Initial Sepsis Screen: Does the patient meet any 2 criteria? HR > 90 bpm. No. Patient's initial sepsis screen is negative. Does the patient have a suspected source of infection? No. Patient's initial sepsis screen is negative. Care prior to arrival: None. 18:03 Method Of Arrival: Wheelchair aj1 18:03 Acuity: LONNY 3 aj1 Triage Assessment: 18:06 General: Appears in no apparent distress. comfortable, Behavior is calm, cooperative, aj1 appropriate for age. Pain: Denies pain. Neuro: Level of Consciousness is awake, alert, obeys commands. Cardiovascular: Patient's skin is warm and dry. Respiratory: Airway is patent Respiratory effort is even, unlabored, Respiratory pattern is regular, symmetrical. 18:08 Respiratory: Reports shortness of breath Onset: The symptoms/episode began/occurred tw2 today, the patient has mild shortness of breath. Historical: - Allergies: 18:06 No Known Allergies; aj1 - Home Meds: 18:06 allopurinol 100 mg Oral tab 1 tab once daily [Active]; atorvastatin 40 mg Oral tab 1 aj1 tab once daily [Active]; Compazine 5 mg Oral tab 1 tab every 6 hours for Cancer Chemotherapy-Induced Nausea and Vomiting [Active]; dexamethasone 4 mg Oral tab 1 tab once daily [Active]; famotidine 20 mg Oral tab 1 tab 2 times per day [Active]; Flomax 0.4 mg Oral cp24 1 cap once daily [Active]; gabapentin 100 mg Oral cap 2 caps at bedtime [Active]; insulin aspart sliding scale 3 times daily before meals subcutaneous [Active]; Lantus 50units Sub-Q nightly [Active]; metoprolol succinate 25 mg Oral Tb24 1 tab once daily for Hypertension [Active]; omega-3 acid ethyl esters 1 gram Oral cap 2 caps at bedtime [Active]; ondansetron 8 mg Oral TbDL 1 tab every 8 hours [Active]; prochlorperazine maleate Oral [Active]; simethicone 80 mg Oral chew every 6 hours for Flatulence [Active]; tramadol 50 mg Oral tab 1 tab 2 times daily as needed for Pain [Active]; - PMHx: 18:06 Cancer; Bile duct carcinoma; Diabetes - IDDM; Hypertension; aj1 - Immunization history:: Flu vaccine is up to date. - Social history:: Smoking status: Patient/guardian denies using tobacco. - Ebola Screening: : Patient denies travel to an Ebola-affected area in the 21 days before illness onset. Screenin:08 Abuse screen: Denies threats or abuse. Nutritional screening: No deficits noted. tw2 Tuberculosis screening: No symptoms or risk factors identified. Fall Risk Secondary diagnosis (15 points) impaired mobility. Assessment: 18:15 General: Appears in no apparent distress. well groomed, well developed, well nourished, sg Behavior is calm, cooperative, appropriate for age. Pain: Denies pain. Neuro: Level of Consciousness is awake, alert, obeys commands, Oriented to person, place, time, Streaming Media Specialist are equal bilaterally Moves all extremities. Full function Gait is steady, Speech is normal, Facial symmetry appears normal. Cardiovascular: Heart tones S1 S2 present Capillary refill is brisk in bilateral fingers Patient's skin is warm and dry. Chest pain is denied. Respiratory: Reports shortness of breath on exertion Airway is patent Respiratory effort is even, unlabored, Respiratory pattern is regular, symmetrical, Breath sounds are clear bilaterally. the patient has mild shortness of breath. GI: Abdomen is flat, non-distended, Reports normal bowel habits, tolerance of fluids, tolerance of food. : No signs and/or symptoms were reported regarding the genitourinary system. EENT: No signs and/or symptoms were reported regarding the EENT system. Derm: Skin is pink, warm \\T\\ dry. Musculoskeletal: No signs and/or symptoms reported regarding the musculoskeletal system. 18:55 Reassessment: Patient appears in no apparent distress at this time. sg 19:20 Reassessment: Patient appears in no apparent distress at this time. Patient and/or ch family updated on plan of care and expected duration. Pain level reassessed. General: Appears in no apparent distress. comfortable, well groomed, well developed, well nourished, Behavior is calm, cooperative, appropriate for age. Pain: Complains of pain in buttocks Pain currently is 4 out of 10 on a pain scale. Pain began gradually, pt has chronic bed sore to R buttock near sacrum. Neuro: Level of Consciousness is awake, alert, obeys commands, Oriented to person, place, time. Cardiovascular: Heart tones S1 S2 present Capillary refill is brisk in bilateral fingers Patient's skin is warm and dry. Pulses are all present. Edema pitting to left midcalf, left ankle, left foot, right midcalf, right ankle and right foot Rhythm is regular Chest pain is denied. Respiratory: Airway is patent Respiratory effort is even, unlabored. 19:22 Reassessment: pt rolled onto his R side to relieve pain from sore. ch 20:20 Reassessment: Patient appears in no apparent distress at this time. Patient and/or ch family updated on plan of care and expected duration. Pain level reassessed. Patient is alert, oriented x 3, equal unlabored respirations, skin warm/dry/pink. pt states he cannot drink the po potassium, needs the pill. order changed. Patient states feeling better. Patient states symptoms have improved. 20:45 Reassessment: Patient appears in no apparent distress at this time. Patient and/or ch family updated on plan of care and expected duration. Pain level reassessed. Patient is alert, oriented x 3, equal unlabored respirations, skin warm/dry/pink. pt taken to restroom prior to discharge. Patient states feeling better. Patient states symptoms have improved. Vital Signs: 18:06 BP 119 / 71; Pulse 107; Resp 20; Temp 98.9; Pulse Ox 100% on R/A; Weight 70.31 kg (R); aj1 Height 5 ft. 9 in. (175.26 cm) (R); Pain 0/10; 19:20 BP 108 / 62; Pulse 109; Resp 22; Temp 98.1(O); Pulse Ox 99% on R/A; Pain 4/10; ch 20:20 BP 112 / 75; Pulse 94; Resp 18; Temp 98.3; Pulse Ox 99% on R/A; Pain 0/10; ch 18:06 Body Mass Index 22.89 (70.31 kg, 175.26 cm) [facility] ED Course: 17:55 Patient arrived in ED. rg4 18:05 Triage completed. aj1 18:06 Arm band placed on Patient placed in an exam room. aj1 18:08 Bed in low position. Call light in reach. laborer cement gun placing on. Pulse ox on. NIBP on. tw2 18:16 John Anaya NP is PHCP. pm1 18:16 Greg Crespo MD is Attending Physician. pm1 18:54 Initial lab(s) drawn, by vt, sent to lab. Accessed Port-a-Cath. Blood collected. using sg accessed w/ # 20 Roegl needle, ,sterile technique, per hospital protocol. Clean \\T\\ dry. no dressing noted. Good blood return. Flushes easily. 19:07 Kerry Wright, RN is Primary Nurse. ch 19:09 Report given to HENOK Payne. tw2 19:10 Notified Nurse Practitioner and/or Physician Elastic Tape Inserter of a critical lab result(s), 7.9 ak1 Hgb. 20:20 No apparent distress. Resting quietly. ch 20:20 No provider procedures requiring assistance completed. IV discontinued, intact. ch 20:20 pt port hep locked with 5 ml per orders. ch Administered Medications: 19:00 Drug: NS 0.9% 1000 ml Route: IV; Rate: 1000 ml; Site: Port-a-cath; tw2 20:37 Follow up: IV Status: Completed infusion; IV Intake: 1000ml ch 19:59 Not Given (Patient Refused): Potassium Effervescent Tablet 50 mEq PO once; dissolve in 4 ounces of water or juice 20:00 Drug: Potassium Chloride 40 mEq Route: PO; ch 20:37 Follow up: Response: No adverse reaction ch Intake: 20:37 IV: 1000ml; Total: 1000ml. ch Outcome: 20:21 Discharge ordered by . pm1 20:45 Discharged to home via wheelchair, with family. 20:45 Condition: improved 20:45 Discharge instructions given to patient, family, Instructed on discharge instructions, follow up and referral plans. medication usage, Demonstrated understanding of instructions, follow-up care, medications, Prescriptions given X 2. 20:51 Patient left the ED. Signatures: Kerry Wright RN RN Cindy Flores RN RN aj1 Zan Baig RN RN sg Mary Ann Peña RN RN ak1 John Anaya, EMBEDDED SOFTWARE ARCHITECT EMBEDDED SOFTWARE ARCHITECT pm1 Mita Warren RN RN tw2 Mercy Martinez rg4
[2019-08-19] MEDS ORDERED: HEPARIN 500 UNIT/5 ML SYR IV ONE (20:42)
[2019-08-19 21:57] VITALS: O2SAT 99
[2019-08-19 21:59] VITALS: BP 112/75; TEMP 98.3
== END 2019-08-19 20:51 | disposition home or self-care (01) ==
LOC: ER 17:53
DX: C24.0 Malignant neoplasm of extrahepatic bile duct (principal); D64.9 Anemia, unspecified; I10 Essential (primary) hypertension; E11.9 Type 2 diabetes mellitus without complications; Z79.4 Long term (current) use of insulin
CPT/HCPCS: 96361; 85025; 80048; 36415; 80076; 83690; 96360; 99285; J1642; J7030

== ENCOUNTER 2019-08-21 23:42 | Inpatient (IN) | payer BC ==
[2019-08-22 01:38] LABS: Absolute Lymphocytes (CBC) 0.7 K/uL (0.7-4.9); Basophils % 0.6 % (0-1.3); Lymphocytes % 16.5 % (15.3-44.8); MPV 7.9 fL (7.6-11.3)
[2019-08-22 01:43] LABS: Hematocrit 18.9 % (39.6-49.0)
[2019-08-22 01:48] LABS: ALT/SGPT 14 U/L (12-78); AST/SGOT 13 U/L (15-37); Alkaline Phosphatase 93 U/L (45-117); BUN Blood Urea Nitrogen 9 mg/dL (7-18); Bicarbonate 25 mmol/L (21-32); Bilirubin Direct 0.2 mg/dL (0-0.2); Bilirubin Total 0.5 mg/dL (0.2-1.0); Glucose Level 119 mg/dL (74-106); Lipase 56 U/L (73-393); Potassium 3.2 mmol/L (3.5-5.1); Protein, Total 4.9 g/dL (6.4-8.2); Sodium Level 140 mmol/L (136-145); Troponin (Emerg Dept Use Only) < 0.02 ng/mL (0.0-0.045)
[2019-08-22 02:09] LABS: Protime INR 1.02
[2019-08-22 02:43] LABS: Anisocytosis 1+; Blood Morphology Comment NOTED (NOT SEEN); Platelet Estimate ADEQ; Urine White Blood Cell Casts OK
--- NOTE | 2019-08-22 04:03 | ER ---
Nurse's Notes [facility] Name: Seth Oconnor Age: 64 yrs Sex: Male : 1955 Arrival Date: 08/21/2019 Time: 23:43 Bed 13 Private MD: Tesha Alonzo Diagnosis: anemia;Fatigue;cachexia;malnutrition;immunocompromised secondary to chemotherapy Presentation: 08/22 00:21 Presenting complaint: Patient states: he has a dry hacky cough and shortness of breath fc that started around dinner time. Transition of care: patient was not received from another setting of care. Onset of symptoms was August 21, 2019 at 17:00. Risk Assessment: Do you want to hurt yourself or someone else? Patient reports no desire to harm self or others. Initial Sepsis Screen: Does the patient meet any 2 criteria? HR > 90 bpm. Yes Does the patient have a suspected source of infection? No. Patient's initial sepsis screen is negative. Care prior to arrival: None. 00:21 Method Of Arrival: Wheelchair fc 00:21 Acuity: LONNY 3 fc Triage Assessment: 00:50 General: Appears in no apparent distress. Respiratory: Reports shortness of breath at rv rest Onset: The symptoms/episode began/occurred suddenly, the patient has mild shortness of breath. Historical: - Allergies: 00:24 No Known Allergies; fc - Home Meds: 00:24 Compazine 5 mg Oral tab 1 tab every 6 hours for Cancer Chemotherapy-Induced Nausea and fc Vomiting [Active]; tramadol 50 mg Oral tab 1 tab 2 times daily as needed for Pain [Active]; - PMHx: 00:24 Diabetes - IDDM; Hypertension; Bile duct cancer; Gout; High Cholesterol; fc - PSHx: 00:24 liver surg; fc - Immunization history:: Last tetanus immunization: up to date Pneumococcal vaccine is up to date, Flu vaccine is up to date. - Social history:: Smoking status: Patient/guardian denies using tobacco, Patient/guardian denies using alcohol, street drugs. - Ebola Screening: : Patient negative for fever greater than or equal to 101.5 degrees Fahrenheit, and additional compatible Ebola Virus Disease symptoms Patient denies exposure to infectious person Patient denies travel to an Ebola-affected area in the 21 days before illness onset. Screenin:50 Abuse screen: Denies threats or abuse. Denies injuries from another. Nutritional rv screening: No deficits noted. Tuberculosis screening: No symptoms or risk factors identified. Fall Risk None identified. Assessment: 00:49 General: Appears in no apparent distress. comfortable, Behavior is calm, cooperative. rv Pain: Denies pain. Neuro: Level of Consciousness is awake, alert, obeys commands, Oriented to person, place, time, situation. Cardiovascular: Patient's skin is warm and dry. Cardiovascular: Rhythm is sinus tachycardia. Respiratory: Airway is patent Respiratory effort is even, Breath sounds are clear bilaterally. GI: No signs and/or symptoms were reported involving the gastrointestinal system. : No signs and/or symptoms were reported regarding the genitourinary system. EENT: No signs and/or symptoms were reported regarding the EENT system. Derm: Skin is intact. Musculoskeletal: No signs and/or symptoms reported regarding the musculoskeletal system. 02:26 Reassessment: Patient appears in no apparent distress at this time. No changes from rv previously documented assessment. Patient is alert, oriented x 3, equal unlabored respirations, skin warm/dry/pink. PATIENT IS UPDATED ON LAB RESULTS AND PLAN OF CARE. 03:45 Reassessment: Patient appears in no apparent distress at this time. No changes from rr5 previously documented assessment. Patient is alert, oriented x 3, equal unlabored respirations, skin warm/dry/pink. awaiting for results and review. 04:20 Reassessment: Patient appears in no apparent distress at this time. No changes from rr5 previously documented assessment. no complaints made. 05:00 Reassessment: BT consent signed, Bt request form sent. rr5 05:25 Reassessment: Patient appears in no apparent distress at this time. Patient is alert, rr5 oriented x 3, equal unlabored respirations, skin warm/dry/pink. 1 unit of PRBC unit # [id number] type AB positive wristband [id number] exp 09/10/2019.double checked by 2 RN's,started and infuse. Vital Signs: 00:24 BP 97 / 64; Pulse 108; Resp 20; Temp 98.3(O); Pulse Ox 100% on R/A; Weight 70.31 kg fc (R); Height 5 ft. 9 in. (175.26 cm) (R); Pain 5/10; 01:18 BP 112 / 69; Pulse 103; Resp 17; Pulse Ox 100% on R/A; rv 02:00 BP 115 / 65; Pulse 94; Resp 16; Pulse Ox 100% on R/A; rv 03:00 BP 118 / 69; Pulse 90; Resp 17; Temp 97.8; Pulse Ox 98% ; rr5 04:00 BP 121 / 79; Pulse 90; Resp 15; Pulse Ox 98% on R/A; rr5 04:55 rr5 00:24 Body Mass Index 22.89 (70.31 kg, 175.26 cm) fc 04:55 suceeding vital signs please refer to BT form. rr5 ED Course: 08/21 23:43 Patient arrived in ED. mr 23:43 Tesha Alonzo MD is Private Physician. mr 08/22 00:22 Triage completed. fc 00:24 Arm band placed on Patient placed in an exam room, on a stretcher. fc 00:36 Jg Seymour MD is Attending Physician. ps1 00:42 Zoran Madsen RN is Primary Nurse. rv 00:50 Patient has correct armband on for positive identification. Bed in low position. Call rv light in reach. Side rails up X 1. Adult w/ patient. monitor worker on. Pulse ox on. NIBP on. 01:10 Initial lab(s) drawn, by me, sent to lab. First set of blood cultures drawn by me. rv 01:16 Chest Single View XRAY Sent. rv 01:17 Accessed Port-a-Cath. using accessed w/ # 20 Rogel needle, ,sterile technique, per hospital protocol. Clean \T\ dry. Dressing intact. Good blood return. Flushes easily. 01:23 Chest Single View XRAY In Process Unspecified. EDMS 02:01 Second set of blood cultures drawn by me. rv 04:00 Az Mckinney DO is Hospitalizing Provider. ps1 05:20 No provider procedures requiring assistance completed. Patient admitted, IV remains in rr5 place. intact, No redness/swelling at site. Administered Medications: No medications were administered Outcome: 04:02 Decision to Hospitalize by Provider. ps1 05:20 Admitted to ER Hold. Please see [facility] for further documentation. rr5 05:20 Condition: stable 05:20 Instructed on the need for admit. 08:48 Patient left the ED. ph Signatures: Dispatcher [employer] ED Keny Maricruz mr Javier, Heide, RN RN Raquel Haas RN RN ph Singer, Phillip, MD MD ps1 Vicente, Ronaldo, RN RN Marc Helton RN RN rr5
--- NOTE | 2019-08-22 04:03 | EDPHYS ---
Physician Documentation [facility] Name: Seth Oconnor Age: 64 yrs Sex: Male : 1955 Arrival Date: 08/21/2019 Time: 23:43 Bed 13 Private MD: Tesha Alonzo ED Physician Jg Seymour HPI: 08/22 01:14 This 64 yrs old Male presents to ER via Wheelchair with complaints of Shortness ps1 Of Breath. 01:14 patient has had a cough, no fever for a couple of days. 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 Complicated by DM. Last dose was a week ago. Cough is productive. Has extreme fatigue and lack of appetite. . Historical: - Allergies: 00:24 No Known Allergies; fc - Home Meds: 00:24 Compazine 5 mg Oral tab 1 tab every 6 hours for Cancer Chemotherapy-Induced Nausea and fc Vomiting [Active]; tramadol 50 mg Oral tab 1 tab 2 times daily as needed for Pain [Active]; - PMHx: 00:24 Diabetes - IDDM; Hypertension; Bile duct cancer; Gout; High Cholesterol; fc - PSHx: 00:24 liver surg; fc - Immunization history:: Last tetanus immunization: up to date Pneumococcal vaccine is up to date, Flu vaccine is up to date. - Social history:: Smoking status: Patient/guardian denies using tobacco, Patient/guardian denies using alcohol, street drugs. - Ebola Screening: : Patient negative for fever greater than or equal to 101.5 degrees Fahrenheit, and additional compatible Ebola Virus Disease symptoms Patient denies exposure to infectious person Patient denies travel to an Ebola-affected area in the 21 days before illness onset. ROS: 01:17 Cardiovascular: Negative for chest pain, palpitations, and edema, Respiratory: Negative ps1 for shortness of breath, cough, wheezing, and pleuritic chest pain, MS/Extremity: Negative for injury and deformity, Skin: Negative for injury, rash, and discoloration, Neuro: Negative for headache, weakness, numbness, tingling, and seizure. 01:17 Constitutional: Positive for chills, fatigue, poor PO intake, weight loss. 01:17 Respiratory: Positive for cough, shortness of breath. Exam: 01:17 Constitutional: This is a well developed, well nourished patient who is awake, alert, ps1 and in no acute distress. Head/Face: Normocephalic, atraumatic. Eyes: Pupils equal round and reactive to light, extra-ocular motions intact. Lids and lashes normal. Conjunctiva and sclera are non-icteric and not injected. ENT: Nares patent. No nasal discharge, no septal abnormalities noted. Tympanic membranes are normal and external auditory canals are clear. Oropharynx with no redness, swelling, or masses, exudates, or evidence of obstruction, uvula midline. Mucous membranes moist. Respiratory: Lungs have equal breath sounds bilaterally, clear to auscultation and percussion. No rales, rhonchi or wheezes noted. No increased work of breathing, no retractions or nasal flaring. 01:17 Cardiovascular: Rate: tachycardic, Rhythm: regular, Pulses: no pulse deficits are appreciated. Vital Signs: 00:24 BP 97 / 64; Pulse 108; Resp 20; Temp 98.3(O); Pulse Ox 100% on R/A; Weight 70.31 kg fc (R); Height 5 ft. 9 in. (175.26 cm) (R); Pain 5/10; 01:18 BP 112 / 69; Pulse 103; Resp 17; Pulse Ox 100% on R/A; rv 02:00 BP 115 / 65; Pulse 94; Resp 16; Pulse Ox 100% on R/A; rv 03:00 BP 118 / 69; Pulse 90; Resp 17; Temp 97.8; Pulse Ox 98% ; rr5 04:00 BP 121 / 79; Pulse 90; Resp 15; Pulse Ox 98% on R/A; rr5 04:55 rr5 00:24 Body Mass Index 22.89 (70.31 kg, 175.26 cm) fc 04:55 suceeding vital signs please refer to BT form. rr5 MDM: 01:25 Patient medically screened. ps1 04:02 Data reviewed: vital signs, nurses notes, lab test result(s), radiologic studies, and ps1 as a result, I will admit patient. Counseling: I had a detailed discussion with the patient and/or guardian regarding: the historical points, exam findings, and any diagnostic results supporting the discharge/admit diagnosis, lab results, the need for further work-up and treatment in the hospital. 08/22 00:48 Order name: Blood Culture Adult (2) ps1 08/22 00:48 Order name: CBC with Diff; Complete Time: 03:35 ps1 08/22 00:48 Order name: Lactate; Complete Time: 02:03 ps1 08/22 00:48 Order name: LFT's; Complete Time: 02:03 ps1 08/22 00:48 Order name: Lipase; Complete Time: 02:03 ps1 08/22 00:48 Order name: Procalcitonin; Complete Time: 03:59 ps1 08/22 00:48 Order name: Protime (+inr); Complete Time: 03:35 ps1 08/22 00:48 Order name: Troponin (emerg Dept Use Only); Complete Time: 02:03 ps1 08/22 00:48 Order name: Urine Microscopic Only ps1 08/22 00:48 Order name: CMP; Complete Time: 02:03 ps1 08/22 01:23 Order name: Flu; Complete Time: 02:14 ps1 08/22 01:44 Order name: CBC Smear Scan; Complete Time: 03:35 EDRI 08/22 02:15 Order name: ABO/RH typing EDRI 08/22 02:15 Order name: Antibody Screen EDRI 08/22 00:48 Order name: Chest Single View XRAY ps1 08/22 00:48 Order name: Cardiac monitoring; Complete Time: 01:16 ps1 08/22 00:48 Order name: IV Saline Lock - Large Bore; Complete Time: 01:16 ps1 08/22 00:48 Order name: Labs collected and sent; Complete Time: 01:16 ps1 08/22 00:48 Order name: O2 Per Protocol; Complete Time: 01:16 ps1 08/22 00:48 Order name: O2 Sat Monitoring; Complete Time: 01:16 ps1 08/22 00:48 Order name: Urine Dipstick-Ancillary (obtain specimen); Complete Time: 07:35 ps1 08/22 02:15 Order name: Packed RBC Leukored EDRI 08/22 08:29 Order name: Urine Dipstick--Ancillary (enter results) eb Administered Medications: No medications were administered Disposition: 08/22/19 04:02 Hospitalization ordered by Az Mckinney for Observation. Preliminary diagnosis are anemia, Fatigue, cachexia, malnutrition, immunocompromised secondary to chemotherapy. - Bed requested for Telemetry/MedSurg (observation). - Status is Observation. ph - Condition is Stable. - Problem is an acute exacerbation. - Symptoms have improved. UTI on Admission? No Signatures: Dispatcher [employer] EDHeide Reich, RN RN Raquel Haas RN RN Jordyn Beaver, RN RN Jg Seymour MD MD ps1 Corrections: (The following items were deleted from the chart) 04:22 04:02 Hospitalization Ordered by Az Mckinney DO for Observation. Preliminary cg diagnosis is anemia; Fatigue; cachexia; malnutrition; immunocompromised secondary to chemotherapy. Bed requested for Telemetry/MedSurg (observation). Status is Observation. Condition is Stable. Problem is an acute exacerbation. Symptoms have improved. UTI on Admission? No. ps1 04:41 04:22 08/22/2019 04:02 Hospitalization Ordered by Az Hank AZEVEDO for Observation. cg Preliminary diagnosis is anemia; Fatigue; cachexia; malnutrition; immunocompromised secondary to chemotherapy. Bed requested for [facility] ER HOLD. Status is Observation. Condition is Stable. Problem is an acute exacerbation. Symptoms have improved. UTI on Admission? No. cg 08:48 04:41 08/22/2019 04:02 Hospitalization Ordered by Az Hank AZEVEDO for Observation. ph Preliminary diagnosis is anemia; Fatigue; cachexia; malnutrition; immunocompromised secondary to chemotherapy. Bed requested for Telemetry/MedSurg (observation). Status is Observation. Condition is Stable. Problem is an acute exacerbation. Symptoms have improved. UTI on Admission? No. cg
--- NOTE | 2019-08-22 04:45 | P.HP ---
Certification for Inpatient Patient admitted to: Observation Patient will require the following post-hospital care: Home Health Services Practitioner: I am a practitioner with admitting privileges, knowledge of patient current condition, hospital course, and medical plan of care. Services: Services provided to patient in accordance with Admission requirements found in Title 42 Section 412.3 of the Code of Federal Regulations Patient History Date of Service: 08/22/19 Primary Care Provider: Dr. Walls; GI/[facility] Reason for admission: Fatigue, poor appetite History of Present Illness: 64-year-old [place] presented to the emergency room with fatigue and poor appetite. 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 Patient had chemotherapy about 1 week ago. Patient also hospitalized last month for dehydration. Over the last several days patient reported poor oral intake. He has been feeling very weak and tired. He denies any fever, chills. Denies any significant shortness of breath. Patient came to the ER for further evaluation. In the ER patient evaluated. Chest x-ray unremarkable. Lactic acid and pro calcitonin within normal range. White count 4.3, hemoglobin 6.4. This was decreased from previous admission at 7.9. Sodium 140, potassium 3.2 %period% creatinine 1.03 with a GFR of 73. Glucose 119. Patient admitted for further evaluation and treatment. When I saw the patient ER, he appeared stable. Slight fatigue noted. Allergies No Known Allergies Allergy (Verified 07/22/19 00:58) Home medications list reviewed: Yes Home Medications: Atorvastatin Calcium [Lipitor] 40 mg PO BEDTIME 08/12/19 Benzonatate 200 mg PO TID PRN 08/12/19 Cetirizine HCl/Pseudoephedrine [Zyrtec-D Tablet] 1 each PO BID PRN 08/12/19 Dronabinol [Marinol] 2.5 mg PO BID 08/12/19 Fidaxomicin [Dificid] 200 mg PO SEECOM 08/12/19 Furosemide [Lasix*] 20 mg PO DAILY PRN 08/12/19 Gabapentin [Neurontin*] 100 mg PO BEDTIME 08/12/19 Insulin Glargine,Hum.rec.anlog [Basaglar Kwikpen U-100] 62 units SQ DAILY Loperamide [Imodium*] 2 mg PO Q4H 08/12/19 Metformin HCl [Glucophage*] 500 mg PO BID 08/12/19 OLANZapine [Zyprexa Zydis] 5 mg PO SEECOM 08/12/19 [place]-3 Acid Ethyl Esters 1 gm PO BEDTIME 08/12/19 Ondansetron [Zuplenz] 8 mg PO PRN PRN 08/12/19 Prochlorperazine [Compazine*] 5 mg PO PRN PRN 08/12/19 Simethicone [Mylicon*] 80 mg PO PRN PRN 08/12/19 Tamsulosin [Flomax*] 0.4 mg PO DAILY 08/12/19 Tramadol HCl [Ultram] 50 mg PO PRN PRN 08/12/19 dexAMETHasone [Decadron*] 4 mg PO BID 08/12/19 - Past Medical/Surgical History Diabetic: Yes -: HTN -: Diabetes mellitus type 2 -: History of liver abscess -: Cholangiocarcinoma stage IV with chemo last 08/01/19 -: Chronic edema to the lower extremity -: Chronic pain -: BPH -: 25% liver resection -: Cholecystectomy -: Foot surgery -: Port-A-Cath in place Psychosocial/ Personal History: Patient is - Family History Family History: Reviewed- Non-Contributory - Social History Smoking Status: Never smoker Alcohol use: Yes CD- Drugs: No Caffeine use: Yes Place of Residence: Home Review of Systems General: Weakness, Malaise, As per HPI Eyes: Unremarkable ENT: Unremarkable Respiratory: Unremarkable Cardiovascular: Unremarkable Gastrointestinal: Unremarkable Genitourinary: Unremarkable Musculoskeletal: Pedal edema, As per HPI Integumentary: Unremarkable Neurological: Unremarkable Lymphatics: Unremarkable Physical Examination - Physical Exam General: Alert, In no apparent distress, Oriented x3, Cooperative HEENT: Atraumatic, Normocephalic, PERRLA, Mucous membr. moist/pink, Other Neck: Supple, No Thyromegaly Respiratory: Clear to auscultation bilaterally, Normal air movement Cardiovascular: Normal pulses, Regular rate/rhythm Gastrointestinal: Normal bowel sounds, Soft and benign, Non-distended, No tenderness, No masses, No rebound, No guarding Musculoskeletal: No erythema, No tenderness, No warmth Integumentary: No erythema, No warmth, No cyanosis, Tenderness/swelling (Mild pitting edema to the lower extremities bilateral) Neurological: Normal speech, Normal strength at 5/5 x4 extr, Normal tone, Normal affect - Studies Laboratory Data (last 24 hrs) 08/22/19 01:10: Sodium 140, Potassium 3.2 L, BUN 9, Creatinine 1.03, Glucose 119 H, Total Bilirubin 0.5, AST 13 L, ALT 14, Alkaline Phosphatase 93, Lipase 56 L 08/22/19 01:10: WBC 4.3 D, Hgb 6.4 L*, Hct 18.9 L* D, Plt Count 347 08/22/19 00:48: PT 12.0, INR 1.02 Microbiology Data (last 24 hrs): 08/22/19 01:27 Nasopharnyx Influenza Type A Antigen Screen - Final 08/22/19 01:27 Nasopharnyx Influenza Type B Antigen Screen - Final Assessment and Plan - Plan Impression: Fatigue secondary to acute on chronic anemia from chronic disease with recent chemotherapy Stage IV cholangiocarcinoma on chemotherapy Moderate protein malnutrition Diabetes mellitus type 2 [id number] BPH Chronic pain Chronic lower extremity edema related to cancer Plan: Fatigue secondary to acute on chronic anemia from chronic disease with recent chemotherapy: Patient will be admitted for further evaluation and treatment. Will provide 1 unit of blood at this time. Will give Lasix 20 mg IV after unit given. Recheck hemoglobin 1 hr after. Will try to maintain hemoglobin above 7.5. Daytime hospitalist will continue his care. Anticipate discharge within the next 12-24 hr with clinical improvement and stability of hemoglobin. Patient will follow up with GI/oncology as an outpatient. 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 He is followed at [facility] by GI/oncology. Moderate protein malnutrition: Encourage oral intake. Will have dietary assess and make recommendation. Diabetes mellitus type 2 [id number]: Will provide insulin sliding scale and monitor Accu-Cheks. BPH: Restart home medication. 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 Discharge Plan: Home Plan to discharge in: 24 Hours - Advance Directives Does patient have a Living Will: Yes Does patient have a Durable POA for Healthcare: Yes - Code Status/Comfort Care Code Status Assessed: Yes (Patient is do not resuscitate.) Time Spent Managing Pts Care (In Minutes): 55
[2019-08-22] MEDS ORDERED: NA CHLORIDE 0.9% 500 ML ONE (04:57)
[2019-08-22] MEDS ORDERED: ACETAMINOPHEN 500 MG TAB PO PRN (05:23)
[2019-08-22] MEDS ORDERED: TRAMADOL HCL 50 MG TAB PO PRN (05:23)
[2019-08-22] MEDS: METOPROLOL XL 25 MG TAB PO SCH (06:00)
[2019-08-22] MEDS: INSULIN -REGULAR HUMAN 50 UNIT/0.5 ML ML SQ SCH ×4 (07:30→21:00)
[2019-08-22 08:47] LABS: Urine Bacteria <20 /HPF (NONE SEEN); Urine Culture Reflex Order REFLEXED; Urine Mucus 2+ /HPF (NONE SEEN); Urine RBC <5 /HPF (NONE SEEN); Urine Yeast MANY (NONE SEEN)
[2019-08-22] MEDS ORDERED: FUROSEMIDE 20 MG/ 2ML VIAL IV ONE (09:04)
[2019-08-22 10:20] LABS: Hematocrit 29.7 % (39.6-49.0)
[2019-08-22 10:40] LABS: Urine Blood 2+ (NEG); Urine Glucose NEGATIVE (NEG); Urine Protein 1+ (NEG); Urine pH 5.5 (5.0-7.0)
[2019-08-22] MEDS: FAMOTIDINE 20 MG TAB PO SCH (10:54)
[2019-08-22] MEDS: HEPARIN 5000 UNIT/ML 1 ML VIAL SQ SCH ×2 (10:54→22:13)
[2019-08-22] MEDS: ALLOPURINOL 100 MG TAB PO SCH (10:54)
[2019-08-22] MEDS ORDERED: PNEUMOCOCCAL VACCINE 0.5 ML IMVAC ONE (11:00)
[2019-08-22] MEDS ORDERED: NA CHLORIDE 0.9% 500 ML IV SCH (12:00)
[2019-08-22] MEDS ORDERED: VANCOMYCIN ORAL SOLN 250 MG/5 ML OSYR PO SCH (18:00)
--- NOTE | 2019-08-22 19:16 | P.CNS ---
Date of Consult: 08/22/19 Reason for Consult: Hypokalemia Requesting Physician: James Cristobal Primary Care Provider: Dr. Walls; GI/Oncology-[facility] Chief Complaint: Fatigue, poor appetite History of Present Illness: 64-year-old [place] presented to the emergency room with fatigue and poor appetite. 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 Patient had chemotherapy about 1 week ago. Patient also hospitalized last month for dehydration. Over the last several days patient reported poor oral intake. He has been feeling very weak and tired. He denies any fever, chills. Denies any significant shortness of breath. Patient came to the ER for further evaluation. In the ER patient evaluated. Chest x-ray unremarkable. Lactic acid and pro calcitonin within normal range. White count 4.3, hemoglobin 6.4. This was decreased from previous admission at 7.9. Sodium 140, potassium 3.2 %period% creatinine 1.03 with a GFR of 73. Glucose 119. Patient admitted for further evaluation and treatment. 01:14 This 64 yrs old Male presents to ER via Wheelchair with complaints of Shortness ps1 Of Breath. 01:14 patient has had a cough, no fever for a couple of days. 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 Complicated by DM. Last dose was a week ago. Cough is productive. Has extreme fatigue and lack of appetite. Allergies No Known Allergies Allergy (Verified 07/22/19 00:58) Home medications list reviewed: Yes Home Medications: Atorvastatin Calcium [Lipitor] 40 mg PO BEDTIME 08/12/19 Benzonatate 200 mg PO TID PRN 08/12/19 Cetirizine HCl/Pseudoephedrine [Zyrtec-D Tablet] 1 each PO BID PRN 08/12/19 Dronabinol [Marinol] 2.5 mg PO BID 08/12/19 Fidaxomicin [Dificid] 200 mg PO SEECOM 08/12/19 Furosemide [Lasix*] 20 mg PO DAILY PRN 08/12/19 Gabapentin [Neurontin*] 100 mg PO BEDTIME 08/12/19 Loperamide [Imodium*] 2 mg PO Q4H 08/12/19 OLANZapine [Zyprexa Zydis] 5 mg PO SEECOM 08/12/19 [place]-3 Acid Ethyl Esters 1 gm PO BEDTIME 08/12/19 Ondansetron [Zuplenz] 8 mg PO PRN PRN 08/12/19 Prochlorperazine [Compazine*] 5 mg PO PRN PRN 08/12/19 Simethicone [Mylicon*] 80 mg PO PRN PRN 08/12/19 Tamsulosin [Flomax*] 0.4 mg PO DAILY 08/12/19 Tramadol HCl [Ultram] 50 mg PO PRN PRN 08/12/19 dexAMETHasone [Decadron*] 4 mg PO BID 08/12/19 Fidaxomicin [Dificid] 200 mg PO BID #20 tablet 08/22/19 - Past Medical/Surgical History Diabetic: Yes -: HTN -: Diabetes mellitus type 2 -: History of liver abscess -: Cholangiocarcinoma stage IV with chemo last 08/01/19 -: Chronic edema to the lower extremity -: Chronic pain -: BPH -: 25% liver resection -: Cholecystectomy -: Foot surgery -: Port-A-Cath in place Psychosocial/ Personal History: Patient is - Family History Father Medical History: Diabetes, Cancer Brother Medical History: Diabetes - Social History Smoking Status: Unknown if ever smoked Alcohol use: No CD- Drugs: No Caffeine use: Yes Place of Residence: Home Review of Systems 10-point ROS is otherwise unremarkable General: Weakness, Malaise Cardiovascular: Edema Gastrointestinal: Diarrhea Neurological: Weakness Physical Examination Temp Pulse Resp BP Pulse Ox 98.1 F 95 H 18 119/63 100 08/22/19 16:00 08/22/19 16:00 08/22/19 16:00 08/22/19 16:00 08/22/19 16:00 General: Alert, In no apparent distress, Oriented x3, Cooperative HEENT: Atraumatic Neck: Supple Respiratory: Clear to auscultation bilaterally Cardiovascular: Regular rate/rhythm, Edema Gastrointestinal: Non-distended, No masses, No guarding, Tenderness Musculoskeletal: No clubbing, No contractures Integumentary: No rashes, No cyanosis Neurological: Normal speech Laboratory Data (last 24 hrs) 08/22/19 01:10: Sodium 140, Potassium 3.2 L, BUN 9, Creatinine 1.03, Glucose 119 H, Total Bilirubin 0.5, AST 13 L, ALT 14, Alkaline Phosphatase 93, Lipase 56 L 08/22/19 01:10: WBC 4.3 D, Hgb 6.4 L*, Hct 18.9 L* D, Plt Count 347 08/22/19 00:48: PT 12.0, INR 1.02 Conclusions/Impression: A/ CKD II with proteinuria. Hypokalemia Hypocalcemia. C.diff colitis HTN. LE Edema, chronic. Dm II with CKD. Anemia in chronic illness. BPH with LUTS. Moderate protein malnutrition. Cholangiocarcinoma Stage IV. P/ Continue current POC and Medications. Replete potassium. Start spironolactone. Start calcitriol. Encourage nutrition. Continue abx. PRBCs as ordered. No NSAIDs. AM labs. Daily weight. Thank you kindly for the consultation.
[2019-08-22] MEDS: TAMSULOSIN 0.4 MG SR CAP PO SCH ×2 (21:00→22:12)
[2019-08-22] MEDS: ATORVASTATIN 40 MG TAB PO SCH ×2 (21:00→22:13)
[2019-08-22] MEDS ORDERED: POTASSIUM CL SA 10 MEQ TAB PO ONE (22:00)
[2019-08-22] MEDS: FINASTERIDE 5 MG TAB PO SCH (22:12)
[2019-08-22] MEDS: LACTOBACILLUS/ACIDOPHILUS TAB PO SCH (22:13)
[2019-08-22] MEDS: GABAPENTIN 100 MG CAP PO SCH (22:13)
[2019-08-22] MEDS: SPIRONOLACTONE 25 MG TABLET PO SCH (22:13)
[2019-08-22] MEDS: PROMOD 30 ML DOSE PO SCH (22:14)
--- NOTE | 2019-08-23 04:43 | EKG ---
Test Date: 2019-08-22 Test Time: 01:45:31 Political Anthropologist: RV MEASUREMENT RESULTS: Intervals: Rate: 96 KS: 180 QRSD: 68 QT: 398 QTc: 502 [place]: P: 61 KS: 180 QRS: 56 T: 64 INTERPRETIVE STATEMENTS: Normal sinus rhythm Nonspecific T wave abnormality Prolonged QT Abnormal ECG Compared to ECG 08/10/2019 20:57:52 T-wave abnormality now present Prolonged QT interval now present Myocardial infarct finding no longer present Electronically Signed On 08-23-19 04:42:25 CDT by Gabe Henderson
[2019-08-23] MEDS: METOPROLOL XL 25 MG TAB PO SCH (06:04)
[2019-08-23 06:07] LABS: Absolute Lymphocytes (CBC) 0.6 K/uL (0.7-4.9); Basophils % 0.7 % (0-1.3); Hematocrit 28.9 % (39.6-49.0); Lymphocytes % 10.6 % (15.3-44.8); MPV 7.8 fL (7.6-11.3); RBC Red Blood Cell Count 3.35 M/uL (4.33-5.43)
[2019-08-23 06:16] LABS: Phosphorus 2.6 mg/dL (2.5-4.9); Uric Acid 6.4 mg/dL (3.5-7.2)
[2019-08-23 06:21] VITALS: BMI 21.7
[2019-08-23 06:38] LABS: Potassium 3.4 mmol/L (3.5-5.1)
[2019-08-23 06:45] LABS: Magnesium 1.4 mg/dL (1.8-2.4)
[2019-08-23] MEDS ORDERED: Magnesium Sulfate 2gm IVPB 2 G/50 ML BAG IV ONE (06:46)
[2019-08-23] MEDS: POTASSIUM 25 MEQ EFFERV TAB PO ONE ×2 (06:48→09:25)
[2019-08-23] MEDS: INSULIN -REGULAR HUMAN 50 UNIT/0.5 ML ML SQ SCH ×4 (07:30→21:00)
[2019-08-23] MEDS: LACTOBACILLUS/ACIDOPHILUS TAB PO SCH ×3 (09:26→22:43)
[2019-08-23] MEDS: HEPARIN 5000 UNIT/ML 1 ML VIAL SQ SCH ×2 (09:26→22:47)
[2019-08-23] MEDS: ALLOPURINOL 100 MG TAB PO SCH (09:27)
[2019-08-23] MEDS: CALCITROL 0.25 MCG CAP PO SCH (09:27)
[2019-08-23] MEDS: SPIRONOLACTONE 25 MG TABLET PO SCH ×2 (09:28→22:43)
[2019-08-23] MEDS: FAMOTIDINE 20 MG TAB PO SCH (09:30)
[2019-08-23] MEDS: PROMOD 30 ML DOSE PO SCH ×2 (09:30→22:44)
[2019-08-23] MEDS: ONDANSETRON 4 MG/2 ML VIAL IV PRN (09:43)
[2019-08-23] MEDS ORDERED: POTASSIUM CL SA 10 MEQ TAB PO ONE (11:00)
[2019-08-23] MEDS ORDERED: D5 0.45 NS 1,000 ML IV SCH (12:00)
--- NOTE | 2019-08-23 12:06 | P.PN ---
Subjective Date of Service: 08/23/19 Primary Care Provider: Dr. Walls; GI/Oncology-[facility] Chief Complaint: Fatigue, poor appetite Patient seen and examined at bedside. No family at bedside. Chart reviewed and case discussed with nursing staff. Continues to have diarrhea, 3 episodes so far this morning No acute events noted overnight. no other complaints this morning Review of Systems 10-point ROS is otherwise unremarkable Physical Examination - Vital Signs Temperature: 97.6 F Blood Pressure: 126/68 Pulse: 86 Respirations: 18 Pulse Ox (%): 97 - Physical Exam General: Alert, In no apparent distress, Oriented x3 HEENT: Atraumatic, PERRLA, EOMI Neck: Supple, JVD not distended Respiratory: Clear to auscultation bilaterally, Normal air movement Cardiovascular: Regular rate/rhythm, Normal S1 S2 Gastrointestinal: Normal bowel sounds, No tenderness Musculoskeletal: No tenderness Integumentary: No rashes Neurological: Normal speech, Normal tone, Normal affect Lymphatics: No axilla or inguinal lymphadenopathy Assessment And Plan - Plan Plan: Fatigue likely secondary to recent chemotherapy and subsequent anemia: -provided 1 unit of blood at this time. Post transfusion H&H stable. Will continue to monitor C. diff colitis Patient started on oral vancomycin, patient states that he cannot tolerate oral vancomycin. He would like to get Fidaxomicin, which is what he got last time he had C. diff. Prescription has been called to the pharmacy, nursing staff working on getting through to the pharmacy to see if medication ready. Will start once family berry picker prescription and brings to him. 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 He is followed at [facility] by GI /oncology. Moderate protein malnutrition: Encourage oral intake. Diabetes mellitus type 2 [id number]: Will provide insulin sliding scale and monitor Accu-Cheks. BPH: Restart home medication. 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 DVT prophylaxis: Lovenox GI prophylaxis: None Diet: Regular Disposition: Pending symptomatic improvement.
--- NOTE | 2019-08-23 14:12 | PN ---
Date of Progress Note: 08/23/2019 Subjective: Patient was seen and examined. He continues to have diarrhea. Objective: Vital signs: Reviewed. Blood pressures have been stable. He remains on IV fluids. General: He appears cachectic, malnourished. HEENT: Atraumatic head. Lungs: Clear to auscultation. Abdomen: Soft and nontender. Extremities: Without any evidence of edema. Multiple bruises noted on his lower extremities from re cent fall. Laboratory Data: Showing sodium of 146, potassium of 3.4, chloride of 111, bicarb of 25, BUN of 9, a nd creatinine of 0.9. Phosphorus was 2.6 and magnesium was 1.4. CBC showing hemoglobin of 10, hemat ocrit of 28.9, and platelet count of 342. Current Medications: Include allopurinol 100 mg a day, calcitriol daily, finasteride at bedtime, leodan apentin at bedtime, metoprolol 25 mg daily. He is on spironolactone 25 mg b.i.d., tamsulosin, p.o. v ancomycin. Impression: 1.Acute on chronic renal insufficiency, currently with stable renal function. 2.Electrolyte abnormalities including hypernatremia. We will change IV fluids to D5 water. 3.Hypokalemia. Remains on spironolactone. We will give him some potassium chloride p.o. supplement ation and also give him IV along with D5 water. 4.Hypomagnesemia. Patient has received IV magnesium sulfate supplementation. We will go ahead and order daily IV magnesium sulfate for a few more days until his diarrhea gets better. 5.Clostridium difficile infection. 6.History of cholangiocarcinoma, receiving chemotherapy. Plan: Overall, patient is hemodynamically stable, but has continued to decline in his health because of advanced stage IV cholangiocarcinoma. Continue treatment for C diff infection. We will change I V fluids to D5 water with 40 mEq of potassium chloride and we will order daily magnesium sulfate repl acement IV. We will avoid p.o. magnesium secondary to ongoing diarrhea. Continue all other medicati ons and plan of care. VV/MODL Voice ID: [id number] Report ID: [id number]
--- NOTE | 2019-08-23 16:02 | RAD REPORT ---
EXAM DESCRIPTION: [place] Single View08/22/2019 7:05 pm CLINICAL HISTORY: cough COMPARISON: July 2019 FINDINGS: Due to technical issues at the hospital the exam could not be dictated after completion. It is now available for dictation The lungs appear clear of acute infiltrate. The heart is normal size The heart is normal size IMPRESSION: No acute abnormalities displayed
[2019-08-23] MEDS: D5W 1,000 ML with POTASSIUM CL 40 MEQ IV SCH ×2 (16:18)
[2019-08-23] MEDS: ATORVASTATIN 40 MG TAB PO SCH (22:43)
[2019-08-23] MEDS: FINASTERIDE 5 MG TAB PO SCH (22:43)
[2019-08-23] MEDS: TAMSULOSIN 0.4 MG SR CAP PO SCH (22:44)
[2019-08-23] MEDS: GABAPENTIN 100 MG CAP PO SCH (22:44)
[2019-08-24] MEDS: METOPROLOL XL 25 MG TAB PO SCH (06:00)
[2019-08-24] MEDS: D5W 1,000 ML with POTASSIUM CL 40 MEQ IV SCH ×6 (06:30→23:51)
[2019-08-24] MEDS: INSULIN -REGULAR HUMAN 50 UNIT/0.5 ML ML SQ SCH ×4 (07:30→20:44)
[2019-08-24 08:52] LABS: Magnesium 1.6 mg/dL (1.8-2.4); Potassium 5.1 mmol/L (3.5-5.1)
[2019-08-24] MEDS ORDERED: MAGNESIUM SULFATE 1 gm IVPB 1 GM/100 ML BAG IV SCH (09:00)
[2019-08-24] MEDS: HEPARIN 5000 UNIT/ML 1 ML VIAL SQ SCH ×2 (09:24→20:43)
[2019-08-24] MEDS: CALCITROL 0.25 MCG CAP PO SCH (09:24)
[2019-08-24] MEDS: LACTOBACILLUS/ACIDOPHILUS TAB PO SCH ×3 (09:24→20:42)
[2019-08-24] MEDS: SPIRONOLACTONE 25 MG TABLET PO SCH ×2 (09:25→20:42)
[2019-08-24] MEDS: FAMOTIDINE 20 MG TAB PO SCH (09:25)
[2019-08-24] MEDS: ONDANSETRON 4 MG/2 ML VIAL IV PRN ×2 (09:25→22:40)
[2019-08-24] MEDS: ALLOPURINOL 100 MG TAB PO SCH (09:25)
[2019-08-24] MEDS: PROMOD 30 ML DOSE PO SCH ×2 (09:26→20:44)
[2019-08-24] MEDS ORDERED: MAGNESIUM SULFATE 1 gm IVPB 1 GM/100 ML BAG IV ONE (11:30)
[2019-08-24 11:59] LABS: Absolute Lymphocytes (CBC) 0.5 K/uL (0.7-4.9); Hematocrit 29.1 % (39.6-49.0); Lymphocytes % 7.1 % (15.3-44.8); MPV 8.2 fL (7.6-11.3); RBC Red Blood Cell Count 3.32 M/uL (4.33-5.43)
--- NOTE | 2019-08-24 13:22 | P.PN ---
Subjective Date of Service: 08/24/19 Primary Care Provider: Dr. Walls; GI/Oncology-[facility] Chief Complaint: Fatigue, poor appetite Subjective: Improving Patient seen and examined at bedside. No family at bedside. Chart reviewed and case discussed with nursing staff. Continues to have diarrhea but stool more formed today., 3 episodes so far this morning No acute events noted overnight. no other complaints this morning Review of Systems 10-point ROS is otherwise unremarkable Physical Examination - Vital Signs Temperature: 97.5 F Blood Pressure: 107/64 Pulse: 57 Respirations: 18 Pulse Ox (%): 97 - Physical Exam General: Alert, In no apparent distress, Oriented x3 HEENT: Atraumatic, PERRLA, EOMI Neck: Supple, JVD not distended Respiratory: Clear to auscultation bilaterally, Normal air movement Cardiovascular: Regular rate/rhythm, Normal S1 S2 Gastrointestinal: Normal bowel sounds, No tenderness Musculoskeletal: No tenderness Integumentary: No rashes Neurological: Normal speech, Normal tone, Normal affect Lymphatics: No axilla or inguinal lymphadenopathy Assessment And Plan - Plan Plan: Fatigue likely secondary to recent chemotherapy and subsequent anemia: -provided 1 unit of blood at this time. Post transfusion H&H stable. Will continue to monitor C. diff colitis Patient started on oral vancomycin, patient states that he cannot tolerate oral vancomycin. He is currently getting Fidaxomicin. Improving He will complete a course of fidaxomicin 200 mg bid x 10 days. 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 He is followed at [facility] by GI /oncology. Moderate protein malnutrition: Encourage oral intake. Diabetes mellitus type 2 [id number]: Will provide insulin sliding scale and monitor Accu-Cheks. BPH: Restart home medication. 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 DVT prophylaxis: Lovenox GI prophylaxis: None Diet: Regular Disposition: Pending symptomatic improvement.
[2019-08-24] MEDS: FINASTERIDE 5 MG TAB PO SCH (20:41)
[2019-08-24] MEDS: ATORVASTATIN 40 MG TAB PO SCH (20:42)
[2019-08-24] MEDS: GABAPENTIN 100 MG CAP PO SCH (20:42)
[2019-08-24] MEDS: TAMSULOSIN 0.4 MG SR CAP PO SCH (20:43)
[2019-08-25] MEDS: METOPROLOL XL 25 MG TAB PO SCH (05:06)
[2019-08-25 05:28] LABS: Absolute Lymphocytes (CBC) 0.6 K/uL (0.7-4.9); Basophils % 0.5 % (0-1.3); Hematocrit 28.3 % (39.6-49.0); Lymphocytes % 8.1 % (15.3-44.8); MPV 7.6 fL (7.6-11.3); RBC Red Blood Cell Count 3.23 M/uL (4.33-5.43)
[2019-08-25] MEDS: D5W 1,000 ML with POTASSIUM CL 40 MEQ IV SCH ×4 (06:48→13:49)
[2019-08-25] MEDS: INSULIN -REGULAR HUMAN 50 UNIT/0.5 ML ML SQ SCH ×4 (07:30→21:00)
[2019-08-25] MEDS: SPIRONOLACTONE 25 MG TABLET PO SCH ×2 (09:27→21:22)
[2019-08-25] MEDS: ALLOPURINOL 100 MG TAB PO SCH (09:28)
[2019-08-25] MEDS: FAMOTIDINE 20 MG TAB PO SCH (09:28)
[2019-08-25] MEDS: CALCITROL 0.25 MCG CAP PO SCH (09:28)
[2019-08-25] MEDS: LACTOBACILLUS/ACIDOPHILUS TAB PO SCH ×3 (09:28→21:21)
[2019-08-25] MEDS: PROMOD 30 ML DOSE PO SCH ×2 (09:28→21:21)
[2019-08-25] MEDS: HEPARIN 5000 UNIT/ML 1 ML VIAL SQ SCH ×2 (09:29→21:20)
[2019-08-25] MEDS: ONDANSETRON 4 MG/2 ML VIAL IV PRN ×2 (09:45→22:14)
[2019-08-25 12:53] LABS: Potassium 4.5 mmol/L (3.5-5.1)
[2019-08-25] MEDS ORDERED: MAGNESIUM SULFATE 1 gm IVPB 1 GM/100 ML BAG IV ONE (14:41)
--- NOTE | 2019-08-25 17:16 | ECHO ---
HEIGHT: 5 ft 9 in WEIGHT: 148 lb 12.8 oz DATE OF STUDY: 08/25/[address]: James Critsobal MD 2-DIMENSIONAL: YES M.MODE: YES DOPPLER: YES COLOR FLOW: YES TDS: PORTABLE: DEFINITY: BUBBLE STUDY: DIAGNOSIS: LE EDEMA CARDIAC HISTORY: CATHERIZATION: NO SURGERY: NO PROSTHETIC VALVE: NO PACEMAKER: NO MEASUREMENTS (cm) DIASTOLIC (NORMALS) SYSTOLIC (NORMALS) IVSd 0.9 (0.6-1.2) LA Diam 3.4 (1.9-4.0) LVEF 68% LVIDd 3.4 (3.5-5.7) LVIDs 2.1 (2.0-3.5) %FS 37% LVPWd 1.0 (0.6-1.2) Ao Diam 3.0 (2.0-3.7) 2 DIMENSIONAL ASSESSMENT: RIGHT ATRIUM: NORMAL LEFT ATRIUM: NORMAL RIGHT VENTRICLE: NORMAL LEFT VENTRICLE: NORMAL TRICUSPID VALVE: NORMAL MITRAL VALVE: NORMAL PULMONIC VALVE: NORMAL AORTIC VALVE: NORMAL PERICARDIAL EFFUSION: NONE AORTIC ROOT: NORMAL LEFT VENTRICULAR WALL MOTION: NORMAL DOPPLER/COLOR FLOW: TRACE MITRAL REGURGITATION COMMENTS: NORMAL TWO DIMENSIONAL ECHOCARDIOGRAM. TRACE MITRAL REGURGITATION. TECHNOLOGIST: SILVIA YATES
[2019-08-25] MEDS ORDERED: VANCOMYCIN 1.25 GM in NA CHLORIDE 0.9% 250 ML IVPB SCH (18:00)
--- NOTE | 2019-08-25 18:17 | P.PN ---
Subjective Date of Service: 08/25/19 Primary Care Provider: Dr. Walls; GI/Oncology-[facility] Chief Complaint: Fatigue, poor appetite Subjective: Improving Patient seen and examined at bedside. No family at bedside. Chart reviewed and case discussed with nursing staff. Continues to have diarrhea but stool continues to be more formed., 4 episodes of diarrhea from 7:00 a.m. to 5:00 p.m. No acute events noted overnight. no other complaints this morning Review of Systems 10-point ROS is otherwise unremarkable Physical Examination - Vital Signs Temperature: 98.6 F Blood Pressure: 117/67 Pulse: 91 Respirations: 16 Pulse Ox (%): 100 - Physical Exam General: Alert, In no apparent distress HEENT: Atraumatic, PERRLA, EOMI Neck: Supple, JVD not distended Respiratory: Clear to auscultation bilaterally, Normal air movement Cardiovascular: Regular rate/rhythm, Normal S1 S2 Gastrointestinal: Normal bowel sounds, No tenderness Musculoskeletal: No tenderness Integumentary: No rashes Neurological: Normal speech, Normal tone, Normal affect Lymphatics: No axilla or inguinal lymphadenopathy - Studies Laboratory Data (last 24 hrs) 08/25/19 05:00: WBC 7.1, Hgb 9.5 L, Hct 28.3 L, Plt Count 415 H Microbiology Data (last 24 hrs): 08/22/19 07:45 Clean Catch Urine [place] Count - Final >100,000 CFU/ML. 08/22/19 07:45 Clean Catch Urine - Final Meth Resistant Staph Aureus Assessment And Plan - Plan Plan: Fatigue likely secondary to recent chemotherapy and subsequent anemia: -provided 1 unit of blood during this stay. Post transfusion H&H continues remain stable. Will continue to monitor C. diff colitis Patient started on oral vancomycin, patient states that he cannot tolerate oral vancomycin. He is currently getting Fidaxomicin. Improving He will complete a course of fidaxomicin 200 mg bid x 10 days. Urinary tract infection, MRSA Patient started on IV vancomycin at this time. He may be able to be discharged once his diarrhea improves on oral Bactrim. 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 He is followed at [facility] by GI /oncology. Patient does have a palliative care appointment on 08/28/2019 Moderate protein malnutrition: Encourage oral intake. Diabetes mellitus type 2 [id number]: Will provide insulin sliding scale and monitor Accu-Cheks. BPH: Restart home medication. 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 DVT prophylaxis: Lovenox GI prophylaxis: None Diet: Regular Disposition: Pending symptomatic improvement. Anticipate discharge home once diarrhea improves
--- NOTE | 2019-08-25 20:11 | P.PN ---
Date of Service: 08/25/19 Vital Signs Temp Pulse Resp BP Pulse Ox 98.6 F 91 H 16 117/67 100 08/25/19 18:17 08/25/19 18:17 08/25/19 18:17 08/25/19 18:17 08/25/19 18:17 Medications Acetaminophen (Tylenol -Extra Strength) 500 mg PO Q4HP PRN PRN Reason: TEMP > 101' F Stop: 09/21/19 05:24 Allopurinol (Zyloprim) 100 mg PO DAILY [facility] Stop: 09/21/19 09:01 Last Admin: 08/25/19 09:28 Dose: 100 mg Atorvastatin Calcium (Lipitor) 40 mg PO BEDTIME [facility] Stop: 09/21/19 21:01 Last Admin: 08/24/19 20:42 Dose: Not Given Calcitriol (Rocaltrol) 0.5 mcg PO DAILY [facility] Stop: 09/22/19 09:01 Last Admin: 08/25/19 09:28 Dose: 0.5 mcg Famotidine (Pepcid) 20 mg PO DAILY [facility]; Protocol Stop: 09/21/19 09:01 Last Admin: 08/25/19 09:28 Dose: 20 mg Finasteride (Proscar) 5 mg PO BEDTIME [facility] Stop: 09/21/19 21:01 Last Admin: 08/24/19 20:41 Dose: 5 mg Gabapentin (Neurontin) 200 mg PO BEDTIME [facility] Stop: 09/21/19 21:01 Last Admin: 08/24/19 20:42 Dose: 200 mg Heparin Sodium (Porcine) (Heparin 5,000 Units/Ml) 5,000 unit SQ Q12HR [facility] Stop: 09/21/19 09:01 Last Admin: 08/25/19 09:29 Dose: 5,000 unit Potassium Chloride 40 meq/ (Dextrose/Water) 1,020 mls @ 75 mls/hr IV [id number] [facility] Stop: 09/22/19 14:01 Last Admin: 08/25/19 13:49 Dose: 1,020 mls Vancomycin HCl 1.25 gm/ Sodium (Chloride) 250 mls @ 150 mls/hr IVPB Q18H [facility]; Protocol Stop: 09/24/19 18:01 Last Admin: 08/25/19 18:22 Dose: 250 mls Insulin Human Regular (Novolin -R) 0 unit SQ ACHS [facility]; Protocol Stop: 09/21/19 07:31 Last Admin: 08/25/19 16:30 Dose: Not Given Lactobacillus Acidoph/Bulgaricus (Lactinex) 1 tab PO TID [facility] Stop: 09/21/19 22:01 Last Admin: 08/25/19 13:51 Dose: 1 tab Metoprolol Succinate (Toprol Xl) 25 mg PO [id number] [facility] Stop: 09/21/19 06:01 Last Admin: 08/25/19 05:06 Dose: 25 mg Nutritional Formula (Promod Liquid Protein) 30 ml PO BID [facility] Stop: 09/21/19 21:01 Last Admin: 08/25/19 09:28 Dose: 30 ml Ondansetron HCl (Zofran) 4 mg IV Q6HP PRN PRN Reason: NAUSEA / VOMITING Stop: 09/21/19 05:24 Last Admin: 08/25/19 09:45 Dose: 4 mg Sodium Chloride (Normal Saline Flush) 10 ml IV BID [facility] Stop: 09/21/19 09:01 Last Admin: 08/25/19 09:29 Dose: 10 ml Spironolactone (Aldactone) 25 mg PO BID [facility] Stop: 09/21/19 22:01 Last Admin: 08/25/19 09:27 Dose: 25 mg Tamsulosin HCl (Flomax) 0.4 mg PO BEDTIME [facility] Stop: 09/21/19 21:01 Last Admin: 08/24/19 20:43 Dose: Not Given Tramadol HCl (Ultram) 50 mg PO TID PRN PRN Reason: Pain scale 2-4 (Mild) Stop: 09/21/19 05:24 Last Admin: 08/23/19 13:57 Dose: 50 mg Vancomycin HCl (Vancocin) 125 mg PO Q6HR [facility]; Protocol Stop: 09/21/19 18:01 Last Admin: 08/22/19 16:18 Dose: Not Given Lab Results (last 24 hrs) 08/25/19 05:00: WBC 7.1, RBC 3.23 L, Hgb 9.5 L, Hct 28.3 L, MCV 87.7, MCH 29.4, MCHC 33.5, RDW 20.3 H, Plt Count 415 H, MPV 7.6, Neutrophils % 82.4 H, Lymphocytes % 8.1 L, Monocytes % 6.7, Eosinophils % 2.3, Basophils % 0.5, Absolute Neutrophils 5.9, Absolute Lymphocytes 0.6 L, Absolute Monocytes 0.5, Absolute Eosinophils 0.2, Absolute Basophils 0.0 08/24/19 20:40: POC Glucose 128 H 08/24/19 15:57: POC Glucose 142 H 08/24/19 11:15: POC Glucose 155 H 08/24/19 07:47: POC Glucose 114 08/23/19 21:07: POC Glucose 149 H 08/23/19 16:24: POC Glucose 138 H 08/23/19 11:58: POC Glucose 134 H 08/23/19 08:25: POC Glucose 96 08/22/19 20:03: POC Glucose 110 08/22/19 16:06: POC Glucose 134 H 08/22/19 11:47: POC Glucose 121 H 08/22/19 08:57: POC Glucose 131 H Microbiology Results 08/22/19 07:45 Clean Catch Urine [place] Count - Final >100,000 CFU/ML. 08/22/19 07:45 Clean Catch Urine - Final Meth Resistant Staph Aureus 08/22/19 01:52 Blood - Blood Aerobic Blood Culture - Preliminary No growth in 24 hours. 08/22/19 01:52 Blood - Blood Anaerobic Blood Culture - Preliminary No growth in 24 hours. 08/22/19 01:10 Blood - Blood Aerobic Blood Culture - Preliminary No growth in 24 hours. 08/22/19 01:10 Blood - Blood Anaerobic Blood Culture - Preliminary No growth in 24 hours. 08/22/19 10:51 Stool Clostridioides difficile Toxin Assay - Final 08/22/19 01:27 Nasopharnyx Influenza Type A Antigen Screen - Final 08/22/19 01:27 Nasopharnyx Influenza Type B Antigen Screen - Final Assessment/ Plan: Nephrology. CPS stable without CP or SOB. No acute events overnight. Moderate, persistent diarrhea. Persistent LE Edema. General: Alert, In no apparent distress, Oriented x3, Cooperative HEENT: Atraumatic Neck: Supple Respiratory: Clear to auscultation bilaterally Cardiovascular: Regular rate/rhythm, Edema Gastrointestinal: Non-distended, No masses, No guarding, Tenderness Musculoskeletal: No clubbing, No contractures Integumentary: No rashes, No cyanosis Neurological: Normal speech Laboratory Data (last 24 hrs) 08/22/19 01:10: Sodium 140, Potassium 3.2 L, BUN 9, Creatinine 1.03, Glucose 119 H, Total Bilirubin 0.5, AST 13 L, ALT 14, Alkaline Phosphatase 93, Lipase 56 L 08/22/19 01:10: WBC 4.3 D, Hgb 6.4 L*, Hct 18.9 L* D, Plt Count 347 08/22/19 00:48: PT 12.0, INR 1.02 Conclusions/Impression: A/ CKD II with proteinuria. Hypokalemia Hypocalcemia. C.diff colitis HTN. LE Edema, chronic. Dm II with CKD. Anemia in chronic illness. BPH with LUTS. Moderate protein malnutrition. Cholangiocarcinoma Stage IV. P/ Continue current POC and Medications. Encourage nutrition. Continue abx. Consider Lomotil. PRBCs as needed. No NSAIDs. AM labs. Daily weight.
[2019-08-25] MEDS: FINASTERIDE 5 MG TAB PO SCH (21:20)
[2019-08-25] MEDS: TAMSULOSIN 0.4 MG SR CAP PO SCH (21:20)
[2019-08-25] MEDS: GABAPENTIN 100 MG CAP PO SCH (21:20)
[2019-08-25] MEDS: ATORVASTATIN 40 MG TAB PO SCH (21:21)
[2019-08-26] MEDS: METOPROLOL XL 25 MG TAB PO SCH (05:05)
[2019-08-26 05:23] LABS: Absolute Lymphocytes (CBC) 0.6 K/uL (0.7-4.9); Basophils % 0.4 % (0-1.3); Hematocrit 27.1 % (39.6-49.0); Lymphocytes % 10.3 % (15.3-44.8); MPV 7.6 fL (7.6-11.3); RBC Red Blood Cell Count 3.08 M/uL (4.33-5.43)
[2019-08-26] MEDS: ONDANSETRON 4 MG/2 ML VIAL IV PRN ×2 (05:27→10:23)
[2019-08-26 06:07] LABS: Albumin 1.8 g/dL (3.4-5.0); Bilirubin Total 0.3 mg/dL (0.2-1.0); Magnesium 1.9 mg/dL (1.8-2.4); Potassium 3.8 mmol/L (3.5-5.1); Protein, Total 4.3 g/dL (6.4-8.2)
[2019-08-26] MEDS: INSULIN -REGULAR HUMAN 50 UNIT/0.5 ML ML SQ SCH ×4 (07:30→21:00)
[2019-08-26] MEDS ORDERED: POTASSIUM CL SA 10 MEQ TAB PO ONE (09:00)
[2019-08-26] MEDS: SPIRONOLACTONE 25 MG TABLET PO SCH ×2 (09:59→21:03)
[2019-08-26] MEDS: CALCITROL 0.25 MCG CAP PO SCH (09:59)
[2019-08-26] MEDS: ALLOPURINOL 100 MG TAB PO SCH (10:00)
[2019-08-26] MEDS: FAMOTIDINE 20 MG TAB PO SCH (10:00)
[2019-08-26] MEDS: LACTOBACILLUS/ACIDOPHILUS TAB PO SCH ×3 (10:00→21:03)
[2019-08-26] MEDS: PROMOD 30 ML DOSE PO SCH ×2 (10:00→21:02)
[2019-08-26] MEDS: HEPARIN 5000 UNIT/ML 1 ML VIAL SQ SCH ×2 (10:04→21:02)
[2019-08-26] MEDS: VANCOMYCIN 1.25 GM in NA CHLORIDE 0.9% 250 ML IVPB SCH ×2 (10:23→21:02)
--- NOTE | 2019-08-26 13:37 | P.PN ---
Subjective Date of Service: 08/26/19 Primary Care Provider: Dr. Walls; GI/Oncology-[facility] Chief Complaint: Fatigue, poor appetite Subjective: Improving Patient seen and examined at bedside. No family at bedside. Chart reviewed and case discussed with nursing staff. Continues to have diarrhea but stool continues to be more formed.,2 episodes of diarrhea today No acute events noted overnight. no other complaints this morning Review of Systems 10-point ROS is otherwise unremarkable Physical Examination - Vital Signs Temperature: 97.9 F Blood Pressure: 121/69 Pulse: 89 Respirations: 18 Pulse Ox (%): 97 - Physical Exam General: Alert, In no apparent distress HEENT: Atraumatic, PERRLA, EOMI Neck: Supple, JVD not distended Respiratory: Clear to auscultation bilaterally, Normal air movement Cardiovascular: Regular rate/rhythm, Normal S1 S2 Gastrointestinal: Normal bowel sounds, No tenderness Musculoskeletal: No tenderness Integumentary: No rashes Neurological: Normal speech, Normal tone, Normal affect Lymphatics: No axilla or inguinal lymphadenopathy Assessment And Plan - Plan Plan: Fatigue likely secondary to recent chemotherapy and subsequent anemia: -provided 1 unit of blood during this stay. Post transfusion H&H continues remain stable. Will continue to monitor C. diff colitis Patient started on oral vancomycin, patient states that he cannot tolerate oral vancomycin. He is currently getting Fidaxomicin. Improving He will complete a course of fidaxomicin 200 mg bid x 10 days. Urinary tract infection, MRSA Patient started on IV vancomycin at this time. He may be able to be discharged once his diarrhea improves on oral Bactrim. 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 He is followed at [facility] by GI /oncology. Patient does have a palliative care appointment on 08/28/2019 Moderate protein malnutrition: Encourage oral intake. Diabetes mellitus type 2 [id number]: Will provide insulin sliding scale and monitor Accu-Cheks. BPH: Restart home medication. 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 DVT prophylaxis: Lovenox GI prophylaxis: None Diet: Regular Disposition: Pending symptomatic improvement. Discharge home once diarrhea improves, anticipate tomorrow.
[2019-08-26] MEDS: ATORVASTATIN 40 MG TAB PO SCH (21:00)
[2019-08-26] MEDS: TAMSULOSIN 0.4 MG SR CAP PO SCH (21:00)
[2019-08-26] MEDS: GABAPENTIN 100 MG CAP PO SCH (21:03)
[2019-08-26] MEDS: FINASTERIDE 5 MG TAB PO SCH (21:03)
--- NOTE | 2019-08-26 21:09 | P.PN ---
Date of Service: 08/26/19 Vital Signs Temp Pulse Resp BP Pulse Ox 97.6 F 97 H 18 126/75 98 08/26/19 16:00 08/26/19 16:00 08/26/19 16:00 08/26/19 16:00 08/26/19 16:00 Medications Acetaminophen (Tylenol -Extra Strength) 500 mg PO Q4HP PRN PRN Reason: TEMP > 101' F Stop: 09/21/19 05:24 Allopurinol (Zyloprim) 100 mg PO DAILY [facility] Stop: 09/21/19 09:01 Last Admin: 08/26/19 10:00 Dose: 100 mg Atorvastatin Calcium (Lipitor) 40 mg PO BEDTIME [facility] Stop: 09/21/19 21:01 Last Admin: 08/25/19 21:21 Dose: Not Given Calcitriol (Rocaltrol) 0.5 mcg PO DAILY [facility] Stop: 09/22/19 09:01 Last Admin: 08/26/19 09:59 Dose: 0.5 mcg Famotidine (Pepcid) 20 mg PO DAILY [facility]; Protocol Stop: 09/21/19 09:01 Last Admin: 08/26/19 10:00 Dose: 20 mg Finasteride (Proscar) 5 mg PO BEDTIME [facility] Stop: 09/21/19 21:01 Last Admin: 08/25/19 21:20 Dose: 5 mg Gabapentin (Neurontin) 200 mg PO BEDTIME [facility] Stop: 09/21/19 21:01 Last Admin: 08/25/19 21:20 Dose: 200 mg Heparin Sodium (Porcine) (Heparin 5,000 Units/Ml) 5,000 unit SQ Q12HR [facility] Stop: 09/21/19 09:01 Last Admin: 08/26/19 10:04 Dose: 5,000 unit Vancomycin HCl 1.25 gm/ Sodium (Chloride) 250 mls @ 150 mls/hr IVPB Q12HR [facility]; Protocol Stop: 09/25/19 09:01 Last Admin: 08/26/19 10:23 Dose: 250 mls Insulin Human Regular (Novolin -R) 0 unit SQ ACHS [facility]; Protocol Stop: 09/21/19 07:31 Last Admin: 08/26/19 16:30 Dose: Not Given Lactobacillus Acidoph/Bulgaricus (Lactinex) 1 tab PO TID [facility] Stop: 09/21/19 22:01 Last Admin: 08/26/19 13:30 Dose: 1 tab Metoprolol Succinate (Toprol Xl) 25 mg PO [id number] [facility] Stop: 09/21/19 06:01 Last Admin: 08/26/19 05:05 Dose: Not Given Nutritional Formula (Promod Liquid Protein) 30 ml PO BID [facility] Stop: 09/21/19 21:01 Last Admin: 08/26/19 10:00 Dose: 30 ml Ondansetron HCl (Zofran) 4 mg IV Q6HP PRN PRN Reason: NAUSEA / VOMITING Stop: 09/21/19 05:24 Last Admin: 08/26/19 10:23 Dose: 4 mg Sodium Chloride (Normal Saline Flush) 10 ml IV BID [facility] Stop: 09/21/19 09:01 Last Admin: 08/26/19 09:00 Dose: 10 ml Spironolactone (Aldactone) 25 mg PO BID [facility] Stop: 09/21/19 22:01 Last Admin: 08/26/19 09:59 Dose: 25 mg Tamsulosin HCl (Flomax) 0.4 mg PO BEDTIME [facility] Stop: 09/21/19 21:01 Last Admin: 08/25/19 21:20 Dose: Not Given Tramadol HCl (Ultram) 50 mg PO TID PRN PRN Reason: Pain scale 2-4 (Mild) Stop: 09/21/19 05:24 Last Admin: 08/23/19 13:57 Dose: 50 mg Vancomycin HCl (Vancocin) 125 mg PO Q6HR [facility]; Protocol Stop: 09/21/19 18:01 Last Admin: 08/22/19 16:18 Dose: Not Given Lab Results (last 24 hrs) 08/25/19 07:36: POC Glucose 127 H Microbiology Results 08/22/19 07:45 Clean Catch Urine [place] Count - Final >100,000 CFU/ML. 08/22/19 07:45 Clean Catch Urine - Final Meth Resistant Staph Aureus 08/22/19 01:52 Blood - Blood Aerobic Blood Culture - Preliminary No growth in 24 hours. 08/22/19 01:52 Blood - Blood Anaerobic Blood Culture - Preliminary No growth in 24 hours. 08/22/19 01:10 Blood - Blood Aerobic Blood Culture - Preliminary No growth in 24 hours. 08/22/19 01:10 Blood - Blood Anaerobic Blood Culture - Preliminary No growth in 24 hours. 08/22/19 10:51 Stool Clostridioides difficile Toxin Assay - Final 08/22/19 01:27 Nasopharnyx Influenza Type A Antigen Screen - Final 08/22/19 01:27 Nasopharnyx Influenza Type B Antigen Screen - Final Assessment/ Plan: Nephrology. CPS stable without CP or SOB. No acute events overnight. Diarrhea improving. Persistent LE Edema. General: Alert, In no apparent distress, Oriented x3, Cooperative HEENT: Atraumatic Neck: Supple Respiratory: Clear to auscultation bilaterally Cardiovascular: Regular rate/rhythm, Edema Gastrointestinal: Non-distended, No masses, No guarding, Tenderness Musculoskeletal: No clubbing, No contractures Integumentary: No rashes, No cyanosis Neurological: Normal speech Laboratory Data (last 24 hrs) 08/22/19 01:10: Sodium 140, Potassium 3.2 L, BUN 9, Creatinine 1.03, Glucose 119 H, Total Bilirubin 0.5, AST 13 L, ALT 14, Alkaline Phosphatase 93, Lipase 56 L 08/22/19 01:10: WBC 4.3 D, Hgb 6.4 L*, Hct 18.9 L* D, Plt Count 347 08/22/19 00:48: PT 12.0, INR 1.02 Conclusions/Impression: A/ CKD II with proteinuria. Hypokalemia Hypocalcemia. C.diff colitis HTN. LE Edema, chronic. Dm II with CKD. Anemia in chronic illness. BPH with LUTS. Moderate protein malnutrition. Cholangiocarcinoma Stage IV. P/ Continue current POC and Medications. Encourage nutrition. Continue abx. Lomotil prn. PRBCs as needed. No NSAIDs. AM labs. Daily weight.
[2019-08-27] MEDS: METOPROLOL XL 25 MG TAB PO SCH (05:19)
[2019-08-27 05:21] LABS: Potassium 3.7 mmol/L (3.5-5.1)
[2019-08-27] MEDS: INSULIN -REGULAR HUMAN 50 UNIT/0.5 ML ML SQ SCH ×3 (07:30→16:30)
[2019-08-27] MEDS: CALCITROL 0.25 MCG CAP PO SCH (08:34)
[2019-08-27] MEDS: SPIRONOLACTONE 25 MG TABLET PO SCH (08:34)
[2019-08-27] MEDS: ALLOPURINOL 100 MG TAB PO SCH (08:34)
[2019-08-27] MEDS: FAMOTIDINE 20 MG TAB PO SCH (08:34)
[2019-08-27] MEDS: LACTOBACILLUS/ACIDOPHILUS TAB PO SCH ×2 (08:34→14:59)
[2019-08-27] MEDS: HEPARIN 5000 UNIT/ML 1 ML VIAL SQ SCH (08:34)
[2019-08-27] MEDS: PROMOD 30 ML DOSE PO SCH (08:44)
[2019-08-27] MEDS ORDERED: POTASSIUM CL SA 10 MEQ TAB PO ONE (09:00)
[2019-08-27] MEDS: VANCOMYCIN 1.25 GM in NA CHLORIDE 0.9% 250 ML IVPB SCH (09:00)
[2019-08-27] MEDS: ONDANSETRON 4 MG/2 ML VIAL IV PRN (09:31)
[2019-08-27 11:26] VITALS: O2SAT 98
[2019-08-27 14:16] VITALS: TEMP 98.6
[2019-08-27] MEDS ORDERED: VANCOMYCIN 1.25 GM in NA CHLORIDE 0.9% 250 ML IVPB SCH (15:00)
[2019-08-27] MEDS ORDERED: HEPARIN 500 UNIT/5 ML SYR IV PRN (16:33)
--- NOTE | 2019-08-27 17:01 | P.DS ---
Admission Date: 08/25/19 Discharge Date: 08/27/19 Primary Care Provider: Dr. Walls; GI/Oncology-[facility] Disposition: ROUTINE DISCHARGE Discharge Condition: FAIR Reason for Admission: Fatigue, poor appetite Consultations: Nephrology Brief History of Present Illness: 64-year-old [place] presented to the emergency room with fatigue and poor appetite. 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 Patient had chemotherapy about 1 week ago. Patient also hospitalized last month for dehydration. Over the last several days patient reported poor oral intake. He has been feeling very weak and tired. He denies any fever, chills. Denies any significant shortness of breath. Patient came to the ER for further evaluation. In the ER patient evaluated. Chest x-ray unremarkable. Lactic acid and pro calcitonin within normal range. White count 4.3, hemoglobin 6.4. This was decreased from previous admission at 7.9. Sodium 140, potassium 3.2 %period% creatinine 1.03 with a GFR of 73. Glucose 119. Patient admitted for further evaluation and treatment. When I saw the patient ER, he appeared stable. Slight fatigue noted. Hospital Course: Patient was admitted for fatigue, he was given 1 unit of blood during this stay. He recently had a chemotherapy done and subsequent anemia from that. Posttransfusion H&H remained stable throughout the stay. However, he still did test positive for C. diff colitis. He was started on oral vancomycin but patient stated that he cannot tolerate that. Prescription was sent for fidaxomicin. He did start taking that and he will complete a 10 day course of 200 mg b.i.d.. He was also found to have and MRSA growing in his urine. He was started on IV vancomycin and then was converted to oral Bactrim to complete a 14 day course upon discharge. He does have a palliative care appointment tomorrow, 08/28/2019 at [facility]. He was encouraged to make that appointment for further evaluation and management of his underlying stage IV cholangiocarcinoma. He otherwise did well throughout the stay. His labs stabilized prior to discharge and he was hemodynamically stable prior to discharge. His diagnoses and treatment plan was explained to him, all questions were answered and he verbalized understanding. He was then discharged home in a safe and stable manner. Overall, patient does seem to have a poor prognosis due to stage IV cholangiocarcinoma Vital Signs/Physical Exam: Temp Pulse Resp BP Pulse Ox 98.6 F 94 H 16 116/65 98 08/27/19 12:00 08/27/19 12:00 08/27/19 12:00 08/27/19 12:00 08/27/19 12:00 General: Alert, In no apparent distress HEENT: Atraumatic, PERRLA, EOMI Neck: Supple, JVD not distended Respiratory: Clear to auscultation bilaterally, Normal air movement Cardiovascular: Regular rate/rhythm, Normal S1 S2 Gastrointestinal: Normal bowel sounds, No tenderness Musculoskeletal: No tenderness Integumentary: No rashes Neurological: Normal speech, Normal tone, Normal affect Lymphatics: No axilla or inguinal lymphadenopathy Laboratory Data at Discharge: WBC 6.1 K/uL (4.3-10.9) D 08/26/19 04:50 Hgb 9.0 g/dL (13.6-17.9) L 08/26/19 04:50 Hct 27.1 % (39.6-49.0) L 08/26/19 04:50 Plt Count 431 K/uL (152-406) H 08/26/19 04:50 PT 12.0 SECONDS (9.5-12.5) 08/22/19 00:48 INR 1.02 08/22/19 00:48 Sodium 144 mmol/L (136-145) 08/27/19 04:46 Potassium 3.7 mmol/L (3.5-5.1) 08/27/19 04:46 BUN 14 mg/dL (7-18) 08/27/19 04:46 Creatinine 0.93 mg/dL (0.55-1.3) 08/27/19 04:46 Glucose 128 mg/dL (74-106) H 08/27/19 04:46 Uric Acid 5.0 mg/dL (3.5-7.2) 08/26/19 04:50 Phosphorus 3.0 mg/dL (2.5-4.9) 08/26/19 04:50 Magnesium 1.9 mg/dL (1.8-2.4) 08/26/19 04:50 Total Bilirubin 0.3 mg/dL (0.2-1.0) 08/26/19 04:50 AST 12 U/L (15-37) L 08/26/19 04:50 ALT 9 U/L (12-78) L 08/26/19 04:50 Alkaline Phosphatase 83 U/L (45-117) 08/26/19 04:50 Lipase 56 U/L (73-393) L 08/22/19 01:10 Home Medications: Atorvastatin Calcium [Lipitor] 40 mg PO BEDTIME 08/12/19 Benzonatate 200 mg PO TID PRN 08/12/19 Cetirizine HCl/Pseudoephedrine [Zyrtec-D Tablet] 1 each PO BID PRN 08/12/19 Dronabinol [Marinol] 2.5 mg PO BID 08/12/19 Fidaxomicin [Dificid] 200 mg PO SEECOM 08/12/19 Furosemide [Lasix*] 20 mg PO DAILY PRN 08/12/19 Gabapentin [Neurontin*] 100 mg PO BEDTIME 08/12/19 Loperamide [Imodium*] 2 mg PO Q4H 08/12/19 OLANZapine [Zyprexa Zydis] 5 mg PO SEECOM 08/12/19 [place]-3 Acid Ethyl Esters 1 gm PO BEDTIME 08/12/19 Ondansetron [Zuplenz] 8 mg PO PRN PRN 08/12/19 Prochlorperazine [Compazine*] 5 mg PO PRN PRN 08/12/19 Simethicone [Mylicon*] 80 mg PO PRN PRN 08/12/19 Tamsulosin [Flomax*] 0.4 mg PO DAILY 08/12/19 Tramadol HCl [Ultram] 50 mg PO PRN PRN 08/12/19 dexAMETHasone [Decadron*] 4 mg PO BID 08/12/19 Fidaxomicin [Dificid] 200 mg PO BID #20 tablet 08/22/19 Sulfamethoxazole/Trimethoprim [Bactrim Ds Tablet] 1 each PO BID #22 tablet 08/27 New Medications: Fidaxomicin [Dificid] 200 mg PO BID #20 tablet Sulfamethoxazole/Trimethoprim [Bactrim Ds Tablet] 1 each PO BID #22 tablet Patient Discharge Instructions: Please make sure to keep your appointment tomorrow at [facility], palliative care. Please follow up with the primary care physician in 2-3 days. Please return to the emergency room for worsening symptoms. Diet: Regular Activity: Ad july Time spent managing pt's care (in minutes): 55
[2019-08-27 18:48] VITALS: BP 120/68
== END 2019-08-27 18:15 | disposition home or self-care (01) | DRG 812 ==
LOC: ER 23:42 → ERHOLD 08-22 04:02 → 2ND 08-22 08:15 → OBSVTOIN 08-25 09:53
PROVIDERS: ADMIT Family Medicine; ATTEND Family Medicine
PROC: 30233N1 Transfusion of Nonautologous Red Blood Cells into Peripheral Vein, Percutaneous Approach (ICD-10-PCS; principal; 2019-08-22)
DX: D64.81 Anemia due to antineoplastic chemotherapy (principal); C22.1 Intrahepatic bile duct carcinoma; A04.72 Enterocolitis due to Clostridium difficile, not specified as recurrent; N39.0 Urinary tract infection, site not specified; E46 Unspecified protein-calorie malnutrition; I12.9 Hypertensive chronic kidney disease with stage 1 through stage 4 chronic kidney disease, or unspecified chronic kidney disease; E11.65 Type 2 diabetes mellitus with hyperglycemia; E11.22 Type 2 diabetes mellitus with diabetic chronic kidney disease; N18.2 Chronic kidney disease, stage 2 (mild); E83.51 Hypocalcemia; E87.6 Hypokalemia; N40.1 Benign prostatic hyperplasia with lower urinary tract symptoms; B95.62 Methicillin resistant Staphylococcus aureus infection as the cause of diseases classified elsewhere; Z68.22 Body mass index [BMI] 22.0-22.9, adult; R60.9 Edema, unspecified; E83.42 Hypomagnesemia
CPT/HCPCS: 36415; 71045; 80048; 80053; 80076; 80202; 81003; 81015; 82962; 83605; 83690; 83735; 84100; 84145; 84484; 84550; 85014; 85018; 85025; 85610; 86850; 86900; 86901; 87040; 87077; 87086; 87088; 87186; 87493; 87804; 93005; 93306; 99285; G0378; J1642; J1644; J1940; J2405; J3475; J7030; J7040; J7799; P9016

== ENCOUNTER 2019-08-29 23:04 | Inpatient (IN) | payer BC ==
[2019-08-29] MEDS ORDERED: NA CHLORIDE 0.9% 1,000 ML ONE ×2 (23:34→23:45)
[2019-08-29 23:50] LABS: Absolute Lymphocytes (CBC) 0.5 K/uL (0.7-4.9); Basophils % 1.1 % (0-1.3); Hematocrit 27.9 % (39.6-49.0); Lymphocytes % 9.2 % (15.3-44.8); MPV 7.3 fL (7.6-11.3); RBC Red Blood Cell Count 3.05 M/uL (4.33-5.43)
--- NOTE | 2019-08-30 00:03 | RAD REPORT ---
EXAM DESCRIPTION: RAD - Chest Single View - 08/29/2019 11:47 pm CLINICAL HISTORY: chemo, hypotensive Chest pain. COMPARISON: Chest Single View dated 08/22/2019; Chest Single View dated 08/10/2019; Chest Single View dated 08/07/2019; Chest Single View dated 07/21/2019 FINDINGS: Portable technique limits examination quality. Medial right lung moderate sized opacity is present likely representing infiltrate/pneumonia. The lef t is clear The heart is normal in size. Right port catheter has tip in the SVC. IMPRESSION: Medial right lung base pneumonia suspected.
[2019-08-30 00:06] LABS: Bilirubin Direct 0.1 mg/dL (0-0.2); Bilirubin Total 0.3 mg/dL (0.2-1.0); Potassium 3.7 mmol/L (3.5-5.1); Protein, Total 4.6 g/dL (6.4-8.2)
[2019-08-30] MEDS ORDERED: Levofloxacin500mg IV 500 MG/100 ML BAG IV ONE (00:16)
--- NOTE | 2019-08-30 00:19 | EDPHYS ---
Physician Documentation [facility] Name: Seth Oconnor Age: 64 yrs Sex: Male : 1955 Arrival Date: 08/29/2019 Time: 23:05 Bed 3 Private MD: Tesha Alonzo ED Physician Dima Marquez HPI: 08/29 23:57 This 64 yrs old Male presents to ER via EMS with complaints of Hypotensive. rn 23:57 Reports generalized weakness, went to chemo today but BP was too low so didn't receive, rn when got home too weak to stand. Is being treated for cdiff, not eating or drinking, recently admitted for IV hydration, states got better, now worse again. Has cholangiocarcinoma. . Onset: The symptoms/episode began/occurred at an unknown time. Severity of symptoms: At their worst the symptoms were moderate in the emergency department the symptoms are unchanged. The patient has experienced similar episodes in the past. The patient has been recently seen by a physician:. Historical: - Allergies: 23:11 Vancomycin; fc - Home Meds: 23:11 gabapentin 100 mg Oral cap 2 caps at bedtime [Active]; allopurinol 100 mg Oral tab 1 fc tab once daily [Active]; atorvastatin 40 mg Oral tab 1 tab once daily [Active]; Compazine 5 mg Oral tab 1 tab every 6 hours for Cancer Chemotherapy-Induced Nausea and Vomiting [Active]; dexamethasone 4 mg Oral tab 1 tab once daily [Active]; famotidine 20 mg Oral tab 1 tab 2 times per day [Active]; Flomax 0.4 mg Oral cp24 1 cap once daily [Active]; insulin aspart sliding scale 3 times daily before meals subcutaneous [Active]; Lantus 50units Sub-Q nightly [Active]; metoprolol succinate 25 mg Oral Tb24 1 tab once daily for Hypertension [Active]; omega-3 acid ethyl esters 1 gram Oral cap 2 caps at bedtime [Active]; ondansetron 8 mg Oral TbDL 1 tab every 8 hours [Active]; prochlorperazine maleate Oral [Active]; simethicone 80 mg Oral chew every 6 hours for Flatulence [Active]; tramadol 50 mg Oral tab 1 tab 2 times daily as needed for Pain [Active]; - PMHx: 23:11 BILE DUCT CANCER; Diabetes - IDDM; Cancer; Bile duct carcinoma; Gout; Hypertension; fc High Cholesterol; - PSHx: 23:11 liver surg; fc - Immunization history:: Last tetanus immunization: up to date Flu vaccine is up to date. - Social history:: Smoking status: Patient/guardian denies using tobacco, Patient/guardian denies using alcohol, street drugs. - Ebola Screening: : Patient negative for fever greater than or equal to 101.5 degrees Fahrenheit, and additional compatible Ebola Virus Disease symptoms Patient denies exposure to infectious person Patient denies travel to an Ebola-affected area in the 21 days before illness onset. - Family history:: not pertinent. - Hospitalizations: : The patient was recently seen at [facility]. ROS: 23:57 Constitutional: Negative for fever, chills Eyes: Negative for injury, pain, redness, rn and discharge, ENT: Negative for injury, pain, and discharge, Cardiovascular: Negative for chest pain, palpitations, and edema, Respiratory: Negative for shortness of breath, cough, wheezing, and pleuritic chest pain, Abdomen/GI: Negative for abdominal pain, nausea, vomiting, + diarrhea MS/Extremity: Negative for injury and deformity, Skin: Negative for injury, rash, and discoloration, Neuro: + generalized weakness Exam: 23:57 Constitutional: Cachectic male, no acute distress, brought in by EMS in trendelenberg. rn Head/Face: Normocephalic, atraumatic. ENT: dry MM Cardiovascular: Tachycardic, regular Respiratory: No increased work of breathing, no retractions or nasal flaring. Abdomen/GI: soft, non-tender MS/ Extremity: Pulses equal, no cyanosis. Neurovascular intact. Full, normal range of motion. Equal circumference. Neuro: Awake and alert, GCS 15, oriented to person, place, time, and situation. Cranial nerves II-XII grossly intact. Motor strength 4/5 in all extremities. Sensory grossly intact. 08/30 00:26 ECG was reviewed by the Attending Physician. rn Vital Signs: 08/29 22:58 BP 101 / 61; Pulse 113; Resp 18; Temp 97.5(O); Pulse Ox 100% on R/A; Weight 69.85 kg fc (R); Height 5 ft. 9 in. (175.26 cm) (R); Pain 0/10; 23:00 BP 101 / 61; Pulse 109; Resp 18; Pulse Ox 100% on R/A; ea 08/30 00:31 BP 113 / 72; Pulse 104; Resp 18; Pulse Ox 99% ; ea 01:30 BP 111 / 65; Pulse 105; Resp 18; Temp 97.6; Pulse Ox 100% ; ea 08/29 22:58 Body Mass Index 22.74 (69.85 kg, 175.26 cm) fc MDM: 08/29 23:06 Patient medically screened. rn 08/30 00:14 Differential Diagnosis. Data reviewed: vital signs, nurses notes, lab test result(s), rn EKG, radiologic studies, and as a result, I will admit patient. Counseling: I had a detailed discussion with the patient and/or guardian regarding: the historical points, exam findings, and any diagnostic results supporting the discharge/admit diagnosis, lab results, radiology results, the need for further work-up and treatment in the hospital. Response to treatment: the patient's symptoms have mildly improved after treatment, and as a result, I will admit patient. Admission orders: after a detailed discussion of the patient's condition and case, the admit orders are written by me. ED course: Pt with acidosis, dehydration, and possible right middle lobe pneumonia. Will admit for abx, fluids, and rehydration to Dr. Lopez. . 08/29 23:07 Order name: CBC with Diff; Complete Time: 00:39 rn 08/29 23:07 Order name: Basic Metabolic Panel; Complete Time: 00:12 rn 08/29 23:07 Order name: LFT's; Complete Time: 00:12 rn 08/29 23:07 Order name: Blood Culture Adult (2) rn 08/29 23:07 Order name: Procalcitonin; Complete Time: 00:39 rn 08/29 23:07 Order name: Urine Microscopic Only rn 08/29 23:07 Order name: Urine Culture rn 08/29 23:53 Order name: CBC Smear Scan; Complete Time: 00:39 EDMS 08/30 00:43 Order name: CBC with Automated Diff EDMS 08/30 00:43 Order name: CBC with Automated Diff EDMS 08/30 00:43 Order name: CBC with Automated Diff EDMS 08/30 00:43 Order name: Comprehensive Metabolic Panel EDMS 08/30 00:43 Order name: Comprehensive Metabolic Panel EDMS 08/30 00:43 Order name: Comprehensive Metabolic Panel EDMS 08/29 23:07 Order name: IV Start; Complete Time: 00:28 rn 08/29 23:07 Order name: XRAY Chest (1 view); Complete Time: 00:12 rn 08/30 00:42 Order name: CONS Pharmacy Consult EDMS 08/30 00:42 Order name: NPO EDMS EC:26 Rate is 103 beats/min. Rhythm is regular. QRS [place] is Normal. SC interval is normal. rn QRS interval is normal. QT interval is normal. No Q waves. T waves are Normal. No ST changes noted. Clinical impression: Sinus tachycardia. Interpreted by me. Reviewed by me. Administered Medications: 08/29 23:35 Drug: NS 0.9% 1000 ml Route: IV; Rate: 1000 ml; Site: Port-a-cath; rr5 08/30 01:50 Follow up: Response: No adverse reaction; IV Status: Completed infusion; IV Intake: ea 1000ml 08/29 23:50 Drug: NS 0.9% 1000 ml Route: IV; Rate: 1000 ml; Site: Port-a-cath; ea 08/30 01:49 Follow up: Response: No adverse reaction; IV Status: Completed infusion; IV Intake: ea 1000ml 00:24 Drug: LevaQUIN 500 mg Volume: 100 ml; Route: IVPB; Infused Over: 60 mins; Site: Port-a-cath; 01:17 Follow up: Response: No adverse reaction; IV Status: Completed infusion; IV Intake: rr5 100ml Disposition: 08/30/19 00:17 Hospitalization ordered by Jone Lopez for Inpatient Admission. Preliminary diagnosis are Hypotension, unspecified, Dehydration, Acidosis, Pneumonia. - Bed requested for Telemetry/MedSurg (Inpatient). - Status is Inpatient Admission. ea - Condition is Stable. - Problem is new. - Symptoms have improved. UTI on Admission? No Signatures: Dispatcher [employer] EDOK Adriana Arzola RN Heide Thorne RN Dima Crespo MD MD rn Antunez, Elena, RN RN ea Roque, Raymond RN RN rr5 Corrections: (The following items were deleted from the chart) 00:49 00:17 Hospitalization Ordered by Jone Lopez MD for Inpatient Admission. Preliminary mw diagnosis is Hypotension, unspecified; Dehydration; Acidosis; Pneumonia. Bed requested for Telemetry/MedSurg (Inpatient). Status is Inpatient Admission. Condition is Stable. Problem is new. Symptoms have improved. UTI on Admission? No. rn 01:51 00:49 08/30/2019 00:17 Hospitalization Ordered by Jone Lopez MD for Inpatient ea Admission. Preliminary diagnosis is Hypotension, unspecified; Dehydration; Acidosis; Pneumonia. Bed requested for Telemetry/MedSurg (Inpatient). Status is Inpatient Admission. Condition is Stable. Problem is new. Symptoms have improved. UTI on Admission? No. mw
--- NOTE | 2019-08-30 00:19 | ER ---
Nurse's Notes [facility] Name: Seth Oconnor Age: 64 yrs Sex: Male : 1955 Arrival Date: 08/29/2019 Time: 23:05 Bed 3 Private MD: Tesha Alonzo Diagnosis: Hypotension, unspecified;Dehydration;Acidosis;Pneumonia Presentation: 08/29 22:58 Presenting complaint: Patient states: that he is just feeling weak and his bp is low. fc States that he went to have Chemo today but that they would not give it due to the low bp. Thinks that the C-Diff diarrhea is making him weak. Transition of care: patient was not received from another setting of care. Onset of symptoms was August 29, 2019. Risk Assessment: Do you want to hurt yourself or someone else? Patient reports no desire to harm self or others. Initial Sepsis Screen: Does the patient meet any 2 criteria? HR > 90 bpm. Yes Does the patient have a suspected source of infection? No. Patient's initial sepsis screen is negative. Care prior to arrival: None. 22:58 Method Of Arrival: EMS: [facility] 22:58 Acuity: LONNY 3 fc Historical: - Allergies: 23:11 Vancomycin; fc - Home Meds: 23:11 gabapentin 100 mg Oral cap 2 caps at bedtime [Active]; allopurinol 100 mg Oral tab 1 fc tab once daily [Active]; atorvastatin 40 mg Oral tab 1 tab once daily [Active]; Compazine 5 mg Oral tab 1 tab every 6 hours for Cancer Chemotherapy-Induced Nausea and Vomiting [Active]; dexamethasone 4 mg Oral tab 1 tab once daily [Active]; famotidine 20 mg Oral tab 1 tab 2 times per day [Active]; Flomax 0.4 mg Oral cp24 1 cap once daily [Active]; insulin aspart sliding scale 3 times daily before meals subcutaneous [Active]; Lantus 50units Sub-Q nightly [Active]; metoprolol succinate 25 mg Oral Tb24 1 tab once daily for Hypertension [Active]; omega-3 acid ethyl esters 1 gram Oral cap 2 caps at bedtime [Active]; ondansetron 8 mg Oral TbDL 1 tab every 8 hours [Active]; prochlorperazine maleate Oral [Active]; simethicone 80 mg Oral chew every 6 hours for Flatulence [Active]; tramadol 50 mg Oral tab 1 tab 2 times daily as needed for Pain [Active]; - PMHx: 23:11 BILE DUCT CANCER; Diabetes - IDDM; Cancer; Bile duct carcinoma; Gout; Hypertension; fc High Cholesterol; - PSHx: 23:11 liver surg; fc - Immunization history:: Last tetanus immunization: up to date Flu vaccine is up to date. - Social history:: Smoking status: Patient/guardian denies using tobacco, Patient/guardian denies using alcohol, street drugs. - Ebola Screening: : Patient negative for fever greater than or equal to 101.5 degrees Fahrenheit, and additional compatible Ebola Virus Disease symptoms Patient denies exposure to infectious person Patient denies travel to an Ebola-affected area in the 21 days before illness onset. - Family history:: not pertinent. - Hospitalizations: : The patient was recently seen at [facility]. Screenin:58 Abuse screen: Denies threats or abuse. Nutritional screening: No deficits noted. fc Tuberculosis screening: No symptoms or risk factors identified. Fall Risk Fall in past 12 months (25 points). Secondary diagnosis (15 points) impaired mobility, Cancer. No IV (0 pts). Ambulatory Aid- Crutches/Cane/Walker (15 pts). Gait- Weak (10 pts.). Mental Status- Overestimates/Forgets Limitations (15 pts.). Total [place] Fall Scale indicates High Risk Score (45 or more points). Fall prevention measures have been instituted. Side Rails Up X 2 Placed Close to Nursing Station Frequent Obs/Assessments Occuring As available patient and family educated on Fall Prevention Program and Strategies. Assessment: 23:41 General: Appears in no apparent distress. Behavior is calm, cooperative. Pain: Denies ea pain. Neuro: Level of Consciousness is awake, alert, obeys commands, Oriented to person, place, time, situation. Cardiovascular: Patient's skin is warm and dry. Respiratory: Airway is patent Respiratory effort is even, unlabored, Respiratory pattern is regular, symmetrical. Derm: Skin is dry, Skin is pale, Skin temperature is warm. Musculoskeletal: Circulation, motion, and sensation intact. 08/30 00:00 Reassessment: Patient and/or family updated on plan of care and expected duration. Pain ea level reassessed. Patient is alert, oriented x 3, equal unlabored respirations, skin warm/dry/pink. 01:46 Reassessment: Patient and/or family updated on plan of care and expected duration. Pain ea level reassessed. Patient is alert, oriented x 3, equal unlabored respirations, skin warm/dry/pink. Pt admitted to fourth floor, via stretcher per tech. pt tolerating well. Vital Signs: 08/29 22:58 BP 101 / 61; Pulse 113; Resp 18; Temp 97.5(O); Pulse Ox 100% on R/A; Weight 69.85 kg fc (R); Height 5 ft. 9 in. (175.26 cm) (R); Pain 0/10; 23:00 BP 101 / 61; Pulse 109; Resp 18; Pulse Ox 100% on R/A; ea 08/30 00:31 BP 113 / 72; Pulse 104; Resp 18; Pulse Ox 99% ; ea 01:30 BP 111 / 65; Pulse 105; Resp 18; Temp 97.6; Pulse Ox 100% ; ea 08/29 22:58 Body Mass Index 22.74 (69.85 kg, 175.26 cm) fc ED Course: 08/29 22:58 Arm band placed on Patient placed in an exam room, on a stretcher. fc 22:58 Patient has correct armband on for positive identification. Placed in gown. Bed in low fc position. Call light in reach. Side rails up X2. monitor worker on. Pulse ox on. NIBP on. 22:58 No provider procedures requiring assistance completed. fc 23:05 Patient arrived in ED. fc 23:06 Dima Marquez MD is Attending Physician. rn 23:06 Tesha Alonzo MD is Private Physician. fc 23:07 Triage completed. fc 23:40 Alseia Qureshi, HENOK is Primary Nurse. ea 23:41 Accessed Port-a-Cath. using ,sterile technique, Clean \T\ dry. Dressing intact. Good ea blood return. Flushes easily. 23:46 X-ray completed. Portable x-ray completed in exam room. Patient tolerated procedure mh1 well. 23:46 XRAY Chest (1 view) In Process Unspecified. EDMS 08/30 00:17 Jone Lopez MD is Hospitalizing Provider. rn 01:46 Patient admitted, IV remains in place. ea Administered Medications: 08/29 23:35 Drug: NS 0.9% 1000 ml Route: IV; Rate: 1000 ml; Site: Port-a-cath; rr5 08/30 01:50 Follow up: Response: No adverse reaction; IV Status: Completed infusion; IV Intake: ea 1000ml 08/29 23:50 Drug: NS 0.9% 1000 ml Route: IV; Rate: 1000 ml; Site: Port-a-cath; ea 08/30 01:49 Follow up: Response: No adverse reaction; IV Status: Completed infusion; IV Intake: ea 1000ml 00:24 Drug: LevaQUIN 500 mg Volume: 100 ml; Route: IVPB; Infused Over: 60 mins; Site: ea Port-a-cath; 01:17 Follow up: Response: No adverse reaction; IV Status: Completed infusion; IV Intake: rr5 100ml Intake: 01:17 IV: 100ml; Total: 100ml. rr5 01:49 IV: 1000ml; Total: 1100ml. ea 01:50 IV: 1000ml; Total: 2100ml. ea Outcome: 00:17 Decision to Hospitalize by Provider. rn 01:45 Admitted to Med/surg accompanied by tech, via stretcher, with chart, Report called to ea Receiving nurse on fourth floor 01:45 Condition: stable 01:45 Instructed on the need for admit. 01:51 Patient left the ED. ea Signatures: Dispatcher [employer] Adriana Thompson [facility] Heide Herrera RN RN fc Nieto, Roman, MD MD rn Antunez, Elena, RN RN ea Roque, Raymond, RN RN rr5
[2019-08-30 00:38] LABS: Anisocytosis 1+; Blood Morphology Comment NOTED (NOT SEEN); Burr Cells 2+; Hypochromasia 1+; Platelet Estimate ADEQ; Urine White Blood Cell Casts OK
[2019-08-30] MEDS ORDERED: FENTANYL CITR 100 MCG/2 ML IV PRN (00:38)
[2019-08-30] MEDS ORDERED: ACETAMINOPHEN 500 MG TAB PO PRN (00:38)
[2019-08-30] MEDS ORDERED: CETIRIZINE HCL PO PRN (00:42)
[2019-08-30] MEDS ORDERED: TRAMADOL HCL 50 MG TAB PO PRN (00:42)
[2019-08-30] MEDS ORDERED: PSEUDOEPHEDRINE PO PRN (00:42)
[2019-08-30] MEDS ORDERED: OLANZapine 10 MG TABLET PO SCH (00:45)
[2019-08-30] MEDS ORDERED: D5W 1,000 ML with NA BICARB 8.4% 50 MEQ IV SCH ×2 (01:00)
[2019-08-30] MEDS ORDERED: BENZONATATE 100 MG CAP PO PRN (01:19)
[2019-08-30 02:19] VITALS: BMI 23.8
[2019-08-30] MEDS ORDERED: SODIUM BICARB 50 MEQ/50ML VIAL ONE (02:20)
[2019-08-30] MEDS ORDERED: D5W 1,000 ML IV ONE (02:21)
[2019-08-30] MEDS: LOPERAMIDE HCL 2 MG CAPSULE PO SCH ×6 (02:25→22:00)
[2019-08-30] MEDS: ONDANSETRON 4 MG/2 ML VIAL IV PRN ×2 (02:49→10:47)
[2019-08-30] MEDS ORDERED: MAGNES/ALUMIN/SIMET 30ML UCUP PO PRN (03:07)
[2019-08-30 05:00] LABS: MPV 7.5 fL (7.6-11.3)
[2019-08-30 05:07] LABS: Absolute Lymphocytes (CBC) 0.5 K/uL (0.7-4.9); Basophils % 1.4 % (0-1.3); Hematocrit 24.2 % (39.6-49.0); RBC Red Blood Cell Count 2.65 M/uL (4.33-5.43)
[2019-08-30 05:16] LABS: Albumin 1.7 g/dL (3.4-5.0); Bilirubin Total 0.3 mg/dL (0.2-1.0); Potassium 3.4 mmol/L (3.5-5.1); Protein, Total 4.1 g/dL (6.4-8.2)
[2019-08-30] MEDS ORDERED: SODIUM CHLORIDE 0.9% 10ML INJ IV PRN (05:28)
[2019-08-30 06:41] LABS: Urine Appearance CLOUDY; Urine Color YELLOW; Urine Specific Gravity 1.025 (1.005-1.030)
[2019-08-30 06:42] LABS: Urine Bilirubin NEGATIVE (NEG); Urine Blood 2+ (NEG); Urine Glucose NEGATIVE (NEG); Urine Protein 1+ (NEG); Urine Urobilinogen 0.2 mg/dL (0.2-1.0); Urine pH 5.5 (5.0-7.0)
[2019-08-30 06:43] LABS: Urine Yeast FEW (NONE SEEN)
[2019-08-30 06:44] LABS: Urine Bacteria 20-50 /HPF (NONE SEEN); Urine Culture Reflex Order NOT NEEDED; Urine RBC <5 /HPF (NONE SEEN)
[2019-08-30] MEDS ORDERED: PANTOPRAZOLE 40MG TABLET PO SCH (07:30)
--- NOTE | 2019-08-30 07:45 | P.HP ---
Certification for Inpatient Patient admitted to: Inpatient With expected LOS: >2 Midnights Patient will require the following post-hospital care: None Practitioner: I am a practitioner with admitting privileges, knowledge of patient current condition, hospital course, and medical plan of care. Services: Services provided to patient in accordance with Admission requirements found in Title 42 Section 412.3 of the Code of Federal Regulations Patient History Date of Service: 08/30/19 Reason for admission: Dehydration; hypotensive; acute kidney injury History of Present Illness: Patient is a 64-year-old gentleman who came into the hospital with low blood pressure. Patient was found to be hypotensive. Patient has a history of cholangiocarcinoma. He has been getting chemotherapy at [facility]. This is palliative chemotherapy. His long-term prognosis remains poor. In the emergency room he was found have acute kidney injury. Decision was made to admit him to the hospital for further workup. Patient has been told that he will not get chemotherapy for a while. His prognosis remains poor. Patient was recently in the hospital and diagnosed with C diff. He is on DiffCid. His diarrhea is better according to the patient. Will monitor him during his hospitalization. Allergies No Known Allergies Allergy (Verified 08/30/19 01:56) Home Medications: Furosemide [Lasix*] 20 mg PO DAILY PRN 08/12/19 Gabapentin [Neurontin*] 100 mg PO BEDTIME 08/12/19 OLANZapine [Zyprexa Zydis] 5 mg PO PRN PRN 08/12/19 Prochlorperazine [Compazine*] 5 mg PO PRN PRN 08/12/19 Simethicone [Mylicon*] 80 mg PO PRN PRN 08/12/19 Tramadol HCl [Ultram] 50 mg PO PRN PRN 08/12/19 Fidaxomicin [Dificid] 200 mg PO BID #20 tablet 08/22/19 Sulfamethoxazole/Trimethoprim [Bactrim Ds Tablet] 1 each PO BID #22 tablet 08/27 - Past Medical/Surgical History Has patient received pneumonia vaccine in the past: Yes Diabetic: Yes -: HTN -: Diabetes mellitus type 2 -: History of liver abscess -: Cholangiocarcinoma stage IV with chemo last 08/01/19 -: Chronic edema to the lower extremity -: Chronic pain -: BPH -: Blood clots Right Knee -: 25% liver resection -: Cholecystectomy -: Foot surgery -: Port-A-Cath in place Psychosocial/ Personal History: Patient is - Family History Father Medical History: Diabetes, Cancer Notes: heart failure Brother Medical History: Diabetes - Social History Smoking Status: Never smoker Alcohol use: No CD- Drugs: No Caffeine use: Yes Place of Residence: Home Review of Systems 10-point ROS is otherwise unremarkable Physical Examination - Vital Signs Temperature: 98.5 F Blood Pressure: 121/65 Pulse: 97 Respirations: 16 Pulse Ox (%): 97 - Physical Exam General: Alert, In no apparent distress, Oriented x3 HEENT: Atraumatic, PERRLA, Mucous membr. moist/pink, EOMI, Sclerae nonicteric Neck: Supple, 2+ carotid pulse no bruit, No LAD, Without JVD or thyroid abnormality Respiratory: Clear to auscultation bilaterally, Normal air movement Cardiovascular: Regular rate/rhythm, Normal S1 S2 Gastrointestinal: Normal bowel sounds, Soft and benign, Non-distended, No tenderness Musculoskeletal: No tenderness Integumentary: No rashes Neurological: Normal speech, Normal tone, Sensation intact, Cranial nerves 3-12 intact, Normal affect, Abnormal strength Lymphatics: No axilla or inguinal lymphadenopathy - Studies Laboratory Data (last 24 hrs) 08/29/19 23:31: Sodium 146 H, Potassium 3.7, BUN 20 H, Creatinine 1.67 H, Glucose 120 H, Total Bilirubin 0.3, AST 21, ALT 15, Alkaline Phosphatase 116 08/29/19 23:31: WBC 4.9 D, Hgb 9.0 L, Hct 27.9 L, Plt Count 452 H Assessment & Plan - Problems (Diagnosis) (1) Acute kidney injury Current Visit: No Status: Acute (2) Diarrhea Current Visit: No Status: Acute Qualifiers: Diarrhea type: unspecified type Qualified Code(s): R19.7 - Diarrhea, unspecified (3) Generalized weakness Current Visit: No Status: Acute (4) History of immunocompromised state Current Visit: No Status: Acute (5) Hypotension Current Visit: No Status: Acute Qualifiers: Hypotension type: orthostatic hypotension Qualified Code(s): I95.1 - Orthostatic hypotension (6) Cholangiocarcinoma Current Visit: No Status: Chronic - Plan Plan: 1. Aggressive IV hydration 2. Monitor renal function 3. Resume treatment for C difficile 4. Monitor electrolytes closely 5. Pain control 6. Continue with palliative care 7. GI and DVT prophylaxis Discharge Plan: Home Plan to discharge in: Greater than 2 days - Advance Directives Does patient have a Living Will: Yes Does patient have a Durable POA for Healthcare: Yes - Code Status/Comfort Care Code Status Assessed: Yes Code Status: Full Code Critical Care: No Time Spent Managing PTS Care (In Minutes): 40
[2019-08-30] MEDS ORDERED: SIMETHICONE 80 MG TAB PO PRN (07:46)
[2019-08-30] MEDS ORDERED: NA CHLORIDE 0.9% 250 ML ONE ×2 (08:38→12:15)
[2019-08-30] MEDS: FIDAXOMICIN 200 MG PO SCH ×2 (09:00→22:02)
[2019-08-30] MEDS: DRONABINOL 2.5 MG PO SCH ×2 (09:00→21:00)
[2019-08-30] MEDS: TAMSULOSIN 0.4 MG SR CAP PO SCH ×2 (09:00→09:21)
[2019-08-30] MEDS ORDERED: PANTOPRAZOLE 40 MG INJ IVP SCH (09:00)
[2019-08-30] MEDS ORDERED: NA CHLORIDE 0.9% 1,000 ML IV ONE (09:00)
[2019-08-30] MEDS ORDERED: dexAMETHasone 4 MG TAB PO SCH (09:00)
[2019-08-30] MEDS: dexAMETHasone 4 MG TAB PO SCH ×3 (10:47→22:02)
[2019-08-30] MEDS: PANTOPRAZOLE INJ 80 MG in NA CHLORIDE 0.9% 250 ML IV SCH (15:04)
[2019-08-30] MEDS: OCTREOTIDE 500 MCG in NA CHLORIDE 0.9% 500 ML IV SCH (15:04)
[2019-08-30] MEDS: D5W 1,000 ML IV SCH ×2 (15:08→21:20)
[2019-08-30 18:17] LABS: Hematocrit 27.7 % (39.6-49.0)
[2019-08-30] MEDS ORDERED: GABAPENTIN 100 MG CAP PO SCH (21:00)
[2019-08-30] MEDS ORDERED: ATORVASTATIN 40 MG TAB PO SCH (21:00)
[2019-08-31] MEDS: PANTOPRAZOLE INJ 80 MG in NA CHLORIDE 0.9% 250 ML IV SCH ×2 (00:04→09:31)
[2019-08-31] MEDS: OCTREOTIDE 500 MCG in NA CHLORIDE 0.9% 500 ML IV SCH ×2 (00:05→09:31)
[2019-08-31] MEDS: LOPERAMIDE HCL 2 MG CAPSULE PO SCH ×4 (00:05→13:00)
[2019-08-31] MEDS: D5W 1,000 ML IV SCH ×2 (05:20→10:40)
[2019-08-31 06:15] LABS: Absolute Lymphocytes (CBC) 0.4 K/uL (0.7-4.9); Basophils % 0.9 % (0-1.3); Hematocrit 26.7 % (39.6-49.0); Lymphocytes % 11.8 % (15.3-44.8); MPV 7.2 fL (7.6-11.3); RBC Red Blood Cell Count 2.99 M/uL (4.33-5.43)
[2019-08-31 06:19] LABS: Albumin 1.6 g/dL (3.4-5.0); Bilirubin Total 0.4 mg/dL (0.2-1.0); Potassium 3.7 mmol/L (3.5-5.1)
[2019-08-31] MEDS: DRONABINOL 2.5 MG PO SCH (09:00)
[2019-08-31] MEDS: dexAMETHasone 4 MG TAB PO SCH (09:30)
[2019-08-31] MEDS: FIDAXOMICIN 200 MG PO SCH (09:31)
[2019-08-31] MEDS: TAMSULOSIN 0.4 MG SR CAP PO SCH (09:31)
--- NOTE | 2019-08-31 10:33 | P.PN ---
Subjective Date of Service: 08/31/19 Chief Complaint: Dehydration; hypotensive; acute kidney injury Subjective: Improving Patient seen and examined at bedside. Chart reviewed. Case discussed with nursing staff. Patient with 1 bloody bowel movement this am, pretty large with clots of blood Hemodynamically, more stable. Review of Systems 10-point ROS is otherwise unremarkable Physical Examination - Vital Signs Temperature: 97.6 F Blood Pressure: 108/63 Pulse: 89 Respirations: 18 Pulse Ox (%): 98 - Physical Exam General: Alert, In no apparent distress, Oriented x3 HEENT: Atraumatic, PERRLA, EOMI Neck: Supple, JVD not distended Respiratory: Clear to auscultation bilaterally, Normal air movement Cardiovascular: Regular rate/rhythm, Normal S1 S2 Gastrointestinal: Normal bowel sounds, No tenderness Musculoskeletal: No tenderness Integumentary: No rashes Neurological: Normal speech, Normal tone, Normal affect Assessment And Plan - Current Problems (Diagnosis) (1) Bloody stool Current Visit: Yes Status: Acute Plan: DDx: C. dif, sp chemo, due to Ca - Continue monitoring H&H -PPI drip and octreeotride -No GI police communications dispatcher this weekend, Patient will require further GI evaluation. -will attempt transfer as patient wants everything done. (2) Acute kidney injury Current Visit: No Status: Acute Plan: Likely pre-renal -Continue IV hydration (3) History of immunocompromised state Current Visit: No Status: Acute (4) Hypotension Current Visit: No Status: Acute Qualifiers: Hypotension type: orthostatic hypotension Qualified Code(s): I95.1 - Orthostatic hypotension (5) Neutropenia Current Visit: No Status: Acute Qualifiers: Neutropenia type: secondary to cancer chemotherapy Qualified Code(s): D70.1 - Agranulocytosis secondary to cancer chemotherapy; T45.1X5A - Adverse effect of antineoplastic and immunosuppressive drugs, initial encounter (6) Cholangiocarcinoma Current Visit: No Status: Chronic Plan: Stage 4, with metastasis Patient currently undergoing chemo, currently seeking active treatment. -He has seen palliative care but they are not wanting just palliative treatment at this time, but seeking active treatment. He will continue follow up with his oncologist as an outpatient (7) C. difficile colitis Current Visit: Yes Status: Acute Plan: Continue Dificid as patient not able to tolerate PO vancomycin (8) Acute blood loss anemia Current Visit: Yes Status: Acute Plan: Patient s/p 2 untis PRBC, wiht continued bloody bowel movement. -Will transfuse 1 more unit. Monitor H&H (9) Generalized weakness Current Visit: No Status: Chronic Plan: Likely due to underlying cholangiocarcinoma with mets along with chemo - Plan Disposition: Pending transfer for higher level of care. Overall, patient with poor prognosis.
[2019-08-31 12:14] VITALS: BP 111/67; TEMP 97.8
[2019-08-31] MEDS ORDERED: NA CHLORIDE 0.9% 250 ML ONE (12:57)
--- NOTE | 2019-08-31 13:05 | EKG ---
Test Date: 2019-08-30 Test Time: 00:21:37 Health Education Director: PAVEL MEASUREMENT RESULTS: Intervals: Rate: 103 DC: QRSD: 66 QT: 304 QTc: 398 [place]: P: DC: QRS: 50 T: 223 INTERPRETIVE STATEMENTS: Accelerated Junctional rhythm Nonspecific T wave abnormality Abnormal ECG Compared to ECG 08/22/2019 01:45:31 Accelerated junctional rhythm now present Sinus rhythm no longer present Prolonged QT interval no longer present T-wave abnormality still present Electronically Signed On 08-31-19 13:03:47 CDT by Stephen Kumar
[2019-08-31 15:27] VITALS: O2SAT 100
--- NOTE | 2019-08-31 16:59 | P.DS ---
Admission Date: 08/30/19 Discharge Date: 08/31/19 Disposition: TRANSFER TO [facility] Discharge Condition: FAIR Reason for Admission: Dehydration; hypotensive; acute kidney injury - Problems (1) Bloody stool Status: Acute (2) Acute kidney injury Status: Acute (3) History of immunocompromised state Status: Acute (4) Hypotension Status: Acute Qualifiers: Hypotension type: orthostatic hypotension Qualified Code(s): I95.1 - Orthostatic hypotension (5) Neutropenia Status: Acute Qualifiers: Neutropenia type: secondary to cancer chemotherapy Qualified Code(s): D70.1 - Agranulocytosis secondary to cancer chemotherapy; T45.1X5A - Adverse effect of antineoplastic and immunosuppressive drugs, initial encounter (6) Cholangiocarcinoma Status: Chronic (7) C. difficile colitis Status: Acute (8) Acute blood loss anemia Status: Acute (9) Generalized weakness Status: Chronic Brief History of Present Illness: This is a 64-year-old man with a medical history of stage IV cholangiocarcinoma with metastasis who is currently seeking active treatment chemotherapy versus palliative care who presented to our emergency room with complaints of low blood pressure, feeling dizzy and weak. Patient was recently discharged from our facility on the with treatment for C. diff colitis. He had an initial palliative contribute appointment at [facility] on the . Patient states that he never had the interview as they checked his blood pressure in the clinic and was told to go to the in the [place] ER. In the ER over there, he states he they observed him there for 24 hr and then was discharged home even though his blood pressure was low. This is all per patient, we do not have any records from the ER over there. He reported feeling dizzy and therefore came to emergency room. In the ER, he was found to have low blood pressure and acute kidney injury along with symptoms of dizziness. He was admitted, IV fluids were started and he was placed on isolation for C. diff and was started back on his C. diff treatment. Overnight, patient seemed to have deteriorated and had complaints of large bloody bowel movements in the morning along with drops in blood pressure and tachycardia. He was given 2 units of blood throughout the stay along with IV fluid boluses to help stabilize blood pressure. He was also started on octreotide and Protonix drip. His symptoms did improve with the 2 units of blood. His hemoglobin also improved to 8.8. Patient continued to have bouts of bloody bowel movement. Goals of care discussion was had with patient. Patient stated that he would like everything done and would like to continue to pursue active treatment for his cholangiocarcinoma. As we do not have GI coverage at this time and as well as continuity of care with patient's oncologist at [facility], and decision was made to transfer patient to [facility]. Dr. samson was done, patient was accepted and then was transferred to [facility] in a stable manner. Vital Signs/Physical Exam: Temp Pulse Resp BP Pulse Ox 97.8 F 91 H 18 111/67 100 08/31/19 12:00 08/31/19 12:00 08/31/19 12:00 08/31/19 12:00 08/31/19 12:00 General: Alert, In no apparent distress HEENT: Atraumatic, PERRLA, EOMI Neck: Supple, JVD not distended Respiratory: Clear to auscultation bilaterally, Normal air movement Cardiovascular: Regular rate/rhythm, Normal S1 S2 Gastrointestinal: Normal bowel sounds, No tenderness Musculoskeletal: No tenderness Integumentary: No rashes Neurological: Normal speech, Normal tone, Normal affect Lymphatics: No axilla or inguinal lymphadenopathy Laboratory Data at Discharge: WBC 3.1 K/uL (4.3-10.9) L D 08/31/19 05:45 Hgb 8.8 g/dL (13.6-17.9) L 08/31/19 05:45 Hct 26.7 % (39.6-49.0) L 08/31/19 05:45 Plt Count 359 K/uL (152-406) 08/31/19 05:45 Sodium 146 mmol/L (136-145) H 08/31/19 05:45 Potassium 3.7 mmol/L (3.5-5.1) 08/31/19 05:45 BUN 15 mg/dL (7-18) 08/31/19 05:45 Creatinine 1.57 mg/dL (0.55-1.3) H 08/31/19 05:45 Glucose 169 mg/dL (74-106) H 08/31/19 05:45 Total Bilirubin 0.4 mg/dL (0.2-1.0) 08/31/19 05:45 AST 19 U/L (15-37) 08/31/19 05:45 ALT 13 U/L (12-78) 08/31/19 05:45 Alkaline Phosphatase 95 U/L (45-117) 08/31/19 05:45 Home Medications: Furosemide [Lasix*] 20 mg PO DAILY PRN 08/12/19 Gabapentin [Neurontin*] 100 mg PO BEDTIME 08/12/19 OLANZapine [Zyprexa Zydis] 5 mg PO PRN PRN 08/12/19 Prochlorperazine [Compazine*] 5 mg PO PRN PRN 08/12/19 Simethicone [Mylicon*] 80 mg PO PRN PRN 08/12/19 Tramadol HCl [Ultram] 50 mg PO PRN PRN 08/12/19 Sulfamethoxazole/Trimethoprim [Bactrim Ds Tablet] 1 each PO BID #22 tablet 08/27 Atorvastatin Calcium 40 mg PO DAILY 08/30/19 Fidaxomicin [Dificid] 1 tab PO BID 08/30/19 [place]-3 Acid Ethyl Esters 1 gm PO BID 08/30/19 Ondansetron [Ondansetron Odt] 8 mg PO Q8H PRN 08/30/19 Enoxaparin Sodium [Lovenox 100 MG INJ] 100 mg SQ DAILY 08/31/19 Fidaxomicin [Dificid] 200 mg PO BID 2 Days #4 tablet 08/31/19 New Medications: Fidaxomicin [Dificid] 200 mg PO BID 2 Days #4 tablet Time spent managing pt's care (in minutes): 55
== END 2019-08-31 15:00 | disposition short-term general hospital (02) | DRG 378 ==
LOC: ER 23:04 → 4TH 08-30 01:21
PROVIDERS: ADMIT Hospitalist; ATTEND Family Medicine
PROC: 30233N1 Transfusion of Nonautologous Red Blood Cells into Peripheral Vein, Percutaneous Approach (ICD-10-PCS; principal; 2019-08-31)
DX: K92.1 Melena (principal); N17.9 Acute kidney failure, unspecified; C22.1 Intrahepatic bile duct carcinoma; A04.72 Enterocolitis due to Clostridium difficile, not specified as recurrent; D62 Acute posthemorrhagic anemia; I95.1 Orthostatic hypotension; D70.9 Neutropenia, unspecified; D70.1 Agranulocytosis secondary to cancer chemotherapy; T45.1X5A Adverse effect of antineoplastic and immunosuppressive drugs, initial encounter; R53.1 Weakness; E86.0 Dehydration; E11.9 Type 2 diabetes mellitus without complications; R00.0 Tachycardia, unspecified
CPT/HCPCS: 36415; 36430; 71045; 80048; 80053; 80076; 81001; 82962; 84145; 85014; 85018; 85025; 86850; 86900; 86901; 87040; 87070; 87077; 87086; 87088; 87186; 87205; 93005; 96361; 96365; 99285; C9113; J2354; J2405; J7030; J7040; J8540; P9040

== ENCOUNTER 2019-09-26 09:02 | Emergency (ER) | payer BC ==
[2019-09-26] MEDS ORDERED: NA CHLORIDE 0.9% 0 ML ONE (09:36)
[2019-09-26] MEDS ORDERED: ONDANSETRON 4 MG/2 ML VIAL ONE ×2 (09:36→16:04)
[2019-09-26] MEDS ORDERED: MORPHINE 2 MG/ML SYR ONE (09:36)
[2019-09-26] MEDS ORDERED: FAMOTIDINE 20 MG/2 ML VIAL IV ONE (09:36)
[2019-09-26 09:57] LABS: Hematocrit 36.3 % (39.6-49.0); MPV 8.9 fL (7.6-11.3); RBC Red Blood Cell Count 4.01 M/uL (4.33-5.43)
[2019-09-26 10:05] LABS: Protime INR 1.07
--- NOTE | 2019-09-26 10:25 | RAD REPORT ---
EXAM DESCRIPTION: RAD - Chest Single View - 09/26/2019 9:59 am CLINICAL HISTORY: COUGH Chest pain. COMPARISON: Chest Single View dated 08/29/2019; Chest Single View dated 08/22/2019; Chest Single View dated 08/10/2019; Chest Single View dated 08/07/2019 FINDINGS: Portable technique limits examination quality. The lungs are underinflated with bilateral pleural effusions suspected, larger on the right. The hear t is normal in size. Right-sided port catheter tip in the SVC.
[2019-09-26 10:42] LABS: Albumin 1.5 g/dL (3.4-5.0); Alkaline Phosphatase > 1000 U/L (45-117); BUN Blood Urea Nitrogen 37 mg/dL (7-18); Bicarbonate 26 mmol/L (21-32); Bilirubin Direct 5.4 mg/dL (0-0.2); Glucose Level 95 mg/dL (74-106); Lipase 164 U/L (73-393); Magnesium 2.1 mg/dL (1.8-2.4); NT PRO-BNP 1248 pg/mL (<125); Potassium 4.6 mmol/L (3.5-5.1); Protein, Total 5.3 g/dL (6.4-8.2); Sodium Level 139 mmol/L (136-145); Troponin (Emerg Dept Use Only) < 0.02 ng/mL (0.0-0.045)
[2019-09-26 10:45] LABS: ALT/SGPT 321 U/L (12-78); AST/SGOT 808 U/L (15-37)
[2019-09-26 10:46] LABS: Bilirubin Total 6.2 mg/dL (0.2-1.0)
--- NOTE | 2019-09-26 11:17 | RAD REPORT ---
EXAM DESCRIPTION: CT - Abdomen Pelvis Wo Contrast - 09/26/2019 10:59 am CLINICAL HISTORY: Abd pain;Distention , patient details malignancy of the biliary tree with chemotherapy COMPARISON: No comparisons TECHNIQUE: Axial [address] imaging of the abdomen and pelvis was performed without IV contrast. No IV contrast was given because of allergy, abnormal renal function, patient refusal or physician re quest. No oral contrast given. All CT scans are performed using dose optimization technique as appropriate and may include automated exposure control or mA/KV adjustment according to patient size. FINDINGS: Large bilateral pleural effusions are present with lower lobe atelectasis. Full extent of the pleural fluid is not visualized on this abdomen pelvis CT imaging. Patient has a small pericardia l effusion. Heart size is normal. Liver is abnormal in appearance. Postsurgical changes are present in the inferior right lobe. Irregul ar heterogeneous parenchyma seen in the posterior mid right lobe approximately 4.5 cm in size. There is additional heterogeneity along the inferior aspect of the right lobe. Baseline for the patient is unknown. Liver metastatic disease is not excluded. No splenomegaly or acute splenic finding. Granulomas type calcifications are seen. Pancreas is small. No primary pancreatic process identifiable. Small gallbladder is seen. No biliary tree dilatation. N umerous surgical clips are seen at the inferior right lobe surgical resection site. No hydronephrosis or suspicious renal mass. No significant adrenal finding. Isodense renal masses an d pyelonephritis cannot be excluded in the absence of IV contrast. Urinary bladder is partially contr acted. Punctate air densities are seen in the nondependent portion of the bladder. This may have been introduced during a catheterization procedure. No air in the ureters. A 2 centimeter low-density mas s upper pole left kidney is probably a cyst. Stomach is decompressed. This accentuates wall thickness. A focal gastric process is not suspected. N o dilated large or small bowel. No acute colon process identifiable. No intraperitoneal free air. Numerous small lymph nodes are seen in the central mesenteric. Congestio n or edema of the omentum is present. Peritoneal drainage catheter is in place entering the anterolat eral left abdomen. A few punctate air densities are seen in the subcutaneous fat in this region belie olegario to be part of the procedure. At the abdominal wall entry site there is no hematoma or mass. No si gnificant edema or stranding in the subcutaneous fat adjacent to the catheter. Catheter is positioned along the anterior aspect of the mid abdomen. In the left upper quadrant there is a large fluid collection 16-18 cm in size. This continues inferio rly along the left anterior peritoneal cavity. This may be partially loculated. No bulky lymphadenopa thy. Patient has fluid retention in the subcutaneous fatty tissues of the lower chest and abdomen. Bony degenerative changes are present. No pathologic bone process. IMPRESSION: Liver is abnormal in appearance. There are several areas of heterogeneous decreased atte nuation that may represent metastatic lesions. Postsurgical changes are present the inferior aspect of the liver and the postsurgical baseline appea mj is unknown. Abnormal liver attenuation is potentially chronic postsurgical change. Intraperitoneal drainage catheters in place position of along the anterior mid abdomen. No significan t abnormalities between the skin and abdominal wall entry site. Patient has a large 16-18 centimeter fluid collection extending from the left hemidiaphragm to the lo wer pelvis along the anterolateral aspect. There are changes that suggest at least partial loculation . Multiple small mesenteric lymph nodes. No bulky lymphadenopathy. Significant fluid retention in the subcutaneous fatty tissues of the lower chest, abdomen and pelvis. Air densities in the bladder lumen are probably from a catheterization. Full assessment is limited is the absence of IV contrast.
[2019-09-26 11:18] LABS: Anisocytosis 1+; Blood Morphology Comment NOTED (NOT SEEN); Platelet Estimate ADEQ; Target Cells 2+
--- NOTE | 2019-09-26 12:53 | EDPHYS ---
Physician Documentation [facility] Name: Seth Oconnor Age: 64 yrs Sex: Male : 1955 Arrival Date: 09/26/2019 Time: 09:07 Bed 19 Private MD: ED Physician Eliazar Sales HPI: 09/26 09:33 This 64 yrs old Male presents to ER via EMS with complaints of General Weakness. [facility] 09:33 The patient presents with abdominal pain. Onset: The symptoms/episode began/occurred 1 celso day(s) ago. The symptoms do not radiate. Associated signs and symptoms: Pertinent positives: nausea and vomiting. The symptoms are described as constant, crampy. Severity of pain: At its worst the pain was mild moderate in the emergency department the pain is unchanged. The patient has experienced similar episodes in the past, a few times. Historical: - Allergies: 09:08 Vancomycin; aa5 - PMHx: 09:08 BILE DUCT CANCER; Cancer; Bile duct carcinoma; Diabetes - IDDM; Gout; High Cholesterol; aa5 Hypertension; - PSHx: 09:08 Liver Resection 2017; Port-a-cath; aa5 09:08 Paracentesis port 09/25/19; aa5 - Ebola Screening: : No symptoms or risks identified at this time. ROS: 09:34 Constitutional: Negative for fever, chills, and weight loss, Eyes: Negative for injury, celso pain, redness, and discharge, ENT: Negative for injury, pain, and discharge, Neck: Negative for injury, pain, and swelling, Respiratory: Negative for shortness of breath, cough, wheezing, and pleuritic chest pain, Back: Negative for injury and pain, : Negative for injury, bleeding, discharge, and swelling, MS/Extremity: Negative for injury and deformity, Skin: Negative for injury, rash, and discoloration, Neuro: Negative for headache, weakness, numbness, tingling, and seizure, Psych: Negative for depression, anxiety, suicide ideation, homicidal ideation, and hallucinations, Allergy/Immunology: Negative for hives, rash, and allergies, Endocrine: Negative for neck swelling, polydipsia, polyuria, polyphagia, and marked weight changes, Hematologic/Lymphatic: Negative for swollen nodes, abnormal bleeding, and unusual bruising. 09:34 Cardiovascular: Positive for palpitations. 09:34 Abdomen/GI: Positive for abdominal pain, nausea and vomiting, of the right upper quadrant, left upper quadrant, right lower quadrant and left lower quadrant. Exam: 09:34 Constitutional: This is a well developed, well nourished patient who is awake, alert, celso and in no acute distress. Head/Face: Normocephalic, atraumatic. Eyes: Pupils equal round and reactive to light, extra-ocular motions intact. Lids and lashes normal. Conjunctiva and sclera are non-icteric and not injected. Cornea within normal limits. Periorbital areas with no swelling, redness, or edema. ENT: Nares patent. No nasal discharge, no septal abnormalities noted. Tympanic membranes are normal and external auditory canals are clear. Oropharynx with no redness, swelling, or masses, exudates, or evidence of obstruction, uvula midline. Mucous membranes moist. Neck: Trachea midline, no thyromegaly or masses palpated, and no cervical lymphadenopathy. Supple, full range of motion without nuchal rigidity, or vertebral point tenderness. No Meningismus. Chest/axilla: Normal chest wall appearance and motion. Nontender with no deformity. No lesions are appreciated. Respiratory: Lungs have equal breath sounds bilaterally, clear to auscultation and percussion. No rales, rhonchi or wheezes noted. No increased work of breathing, no retractions or nasal flaring. Back: No spinal tenderness. No costovertebral tenderness. Full range of motion. Male : Normal genitalia with no discharge or lesions. MS/ Extremity: Pulses equal, no cyanosis. Neurovascular intact. Full, normal range of motion. Neuro: Awake and alert, GCS 15, oriented to person, place, time, and situation. Cranial nerves II-XII grossly intact. Motor strength 5/5 in all extremities. Sensory grossly intact. Cerebellar exam normal. Normal gait. Psych: Awake, alert, with orientation to person, place and time. Behavior, mood, and affect are within normal limits. 09:34 Cardiovascular: Rate: tachycardic, Rhythm: regular, Pulses: Pulses are 4+ in bilateral radial, brachial, femoral, popliteal, posterior tibial and and dorsalis pedis arteries.. Edema: 1+ edema to level of left midcalf and right midcalf, JVD: is not appreciated. Vital Signs: 09:08 BP 133 / 73; Pulse 103; Resp 18 S; Temp 97.7(O); Pulse Ox 97% on R/A; aa5 09:15 BP 133 / 73; Pulse 103; Resp 18; Temp 97.7(O); Pulse Ox 98% on R/A; Weight 70.31 kg; em Height 5 ft. 10 in. (177.80 cm); Pain 3/10; 10:19 BP 118 / 81; Pulse 100; Resp 18; Pulse Ox 98% on 2 lpm NC; Pain 2/10; em 12:14 BP 127 / 83; Pulse 100; Resp 18; Pulse Ox 99% on 2 lpm NC; Pain 2/10; em 13:30 BP 119 / 73; Pulse 102; Resp 18; Pulse Ox 99% on 2 lpm NC; Pain 2/10; em 14:25 BP 124 / 81; Pulse 101; Resp 18; Pulse Ox 99% on 2 lpm NC; em 15:30 BP 119 / 73; Pulse 103; Resp 16; Pulse Ox 99% on R/A; em 16:30 BP 131 / 89; Pulse 106; Resp 18; Pulse Ox 99% on R/A; Pain 2/10; em 17:30 BP 119 / 73; Pulse 103; Resp 17; Pulse Ox 99% on R/A; em 09:15 Body Mass Index 22.24 (70.31 kg, 177.80 cm) em MDM: 09:14 Patient medically screened. [facility] 09:36 Data reviewed: vital signs, nurses notes, lab test result(s), EKG, radiologic studies, [facility] CT scan, plain films. 09/26 09:32 Order name: Basic Metabolic Panel; Complete Time: 12:39 [facility] 09/26 09:32 Order name: CBC with Diff; Complete Time: 12:39 [facility] 09/26 09:32 Order name: LFT's; Complete Time: 12:39 [facility] 09/26 09:32 Order name: Magnesium; Complete Time: 12:39 [facility] 09/26 09:32 Order name: NT PRO-BNP; Complete Time: 12:39 [facility] 09/26 09:32 Order name: PT-INR; Complete Time: 12:39 [facility] 09/26 09:32 Order name: Troponin (emerg Dept Use Only); Complete Time: 12:39 [facility] 09/26 09:32 Order name: XRAY Chest (1 view); Complete Time: 12:39 [facility] 09/26 09:32 Order name: Lipase; Complete Time: 12:39 [facility] 09/26 09:32 Order name: Type And Screen; Complete Time: 12:39 [facility] 09/26 09:32 Order name: AMMONIA; Complete Time: 12:39 [facility] 09/26 11:18 Order name: Manual Differential; Complete Time: 12:39 EDMS 09/26 16:11 Order name: Glucose, Ancillary Testing EDPA 09/26 09:32 Order name: EKG; Complete Time: 09:34 [facility] 09/26 09:32 Order name: Cardiac monitoring; Complete Time: 09:33 [facility] 09/26 09:32 Order name: EKG - Nurse/Tech; Complete Time: 09:33 [facility] 09/26 09:32 Order name: IV Saline Lock; Complete Time: 09:33 [facility] 09/26 09:32 Order name: Labs collected and sent; Complete Time: 09:33 [facility] 09/26 09:32 Order name: O2 Per Protocol; Complete Time: 09:33 [facility] 09/26 09:32 Order name: O2 Sat Monitoring; Complete Time: 09:33 [facility] 09/26 10:55 Order name: Abdomen ; Complete Time: 12:39 EDMS 09/26 13:33 Order name: PO challenge; Complete Time: 13:36 [facility] Administered Medications: 09:43 Drug: NS 0.9% 500 ml Route: IV; Rate: bolus; Site: Port-a-cath; aa5 10:23 Follow up: IV Status: Completed infusion; IV Intake: 500ml aa5 09:43 Drug: Pepcid 20 mg Route: IVP; Site: Port-a-cath; aa5 10:27 Follow up: Response: No adverse reaction em 09:44 Drug: Zofran 4 mg Route: IVP; Site: Port-a-cath; aa5 10:28 Follow up: Response: No adverse reaction em 09:46 Drug: morphine 2 mg Route: IVP; Site: Port-a-cath; aa5 10:28 Follow up: Response: No adverse reaction; Pain is decreased; RASS: Alert and Calm (0) em 10:25 Drug: NS 0.9% 1000 ml Route: IV; Rate: 125 ml/hr; Site: Port-a-cath; aa5 17:25 Follow up: IV Status: Order to discontinue infusion; IV Intake: 200ml em 13:35 Drug: NS 0.9% 500 ml Route: IV; Rate: bolus; Site: Port-a-cath; aa5 15:07 Follow up: IV Status: Completed infusion; IV Intake: 500ml em 16:17 Drug: Zofran 2 mg Route: IVP; Site: Port-a-cath; aa5 16:40 Follow up: Response: No adverse reaction; Nausea is decreased em 16:52 Drug: traMADol 50 mg Route: PO; em 17:59 Follow up: Response: No adverse reaction; Pain is decreased em Disposition: 09/26/19 13:39 Hospitalization ordered by Az Mckinney for Inpatient Admission. Preliminary diagnosis are Weakness, Unspecified kidney failure, Abdominal tenderness, Anemia, unspecified, Type 2 diabetes mellitus, Anorexia, Dehydration. - Bed requested for Telemetry/MedSurg (Inpatient). - Status is Inpatient Admission. em - Condition is Fair. - Problem is new. - Symptoms have improved. UTI on Admission? No Signatures: Dispatcher [employer] [facility] Eliazar Sales MD MD cha Munoz, Edgar, CLEARING HAND CLEARING HAND Shanta Smith, RN RN aa5 Cassia Pierson Corrections: (The following items were deleted from the chart) 09:14 09:08 PSHx: Amniocentesis port 09/25/19; aa5 aa5 10:54 09:34 Abdomen Pelvis W Con+CT.RAD.BRZ ordered. [facility] 13:34 12:51 09/26/2019 12:[address] [facility]. Diagnosis is celso Vomiting; Weakness; Abdominal tenderness; Type 2 diabetes mellitus; Pleural effusion in conditions classified elsewhere. Reason for transfer: Higher level of care. Accepting physician is to [facility]. Condition is Fair. Problem is new. Symptoms have improved. [place] 13:41 13:39 Hospitalization Ordered by Az Mckinney DO for Inpatient Admission. Preliminary celso diagnosis is Weakness; Unspecified kidney failure; Abdominal tenderness; Anemia, unspecified; Type 2 diabetes mellitus; Anorexia. Bed requested for Telemetry/MedSurg (Inpatient). Status is Inpatient Admission. Condition is Fair. Problem is new. Symptoms have improved. UTI on Admission? No. [place] 13:48 13:41 09/26/2019 13:39 Hospitalization Ordered by Az Mckinney DO for Inpatient eb Admission. Preliminary diagnosis is Weakness; Unspecified kidney failure; Abdominal tenderness; Anemia, unspecified; Type 2 diabetes mellitus; Anorexia; Dehydration. Bed requested for Telemetry/MedSurg (Inpatient). Status is Inpatient Admission. Condition is Fair. Problem is new. Symptoms have improved. UTI on Admission? No. [place] 19:00 13:48 09/26/2019 13:39 Hospitalization Ordered by Az Mckinney DO for Inpatient em Admission. Preliminary diagnosis is Weakness; Unspecified kidney failure; Abdominal tenderness; Anemia, unspecified; Type 2 diabetes mellitus; Anorexia; Dehydration. Bed requested for Telemetry/MedSurg (Inpatient). Status is Inpatient Admission. Condition is Fair. Problem is new. Symptoms have improved. UTI on Admission? No. eb
--- NOTE | 2019-09-26 12:53 | ER ---
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 C/O generalized weakness that began yesterday and got worse today. Pt had port for abdominal paracentesis placed yesterday at [facility]. Pt c/o pain to incision site from liver resection completed approximately 1 year ago, redness noted to site. Pt reports nausea, denies vomiting, reports not eating for the last 2 days. Last BM was 09/24/19 and last void was today. 09:07 Transition of care: patient was not received from another setting of care. Onset of aa5 symptoms was September 2019. Risk Assessment: Do you want to hurt yourself or someone else? Patient reports no desire to harm self or others. Initial Sepsis Screen: Does the patient meet any 2 criteria? HR > 90 bpm. Does the patient have a suspected source of infection? No. Patient's initial sepsis screen is negative. Care prior to arrival: Glucose check: 145 Oxygen administered. via nasal cannula. 09:07 Acuity: LONNY 3 aa5 09:07 Method Of Arrival: EMS: [facility] aa5 Historical: - Allergies: 09:08 Vancomycin; aa5 - PMHx: 09:08 BILE DUCT CANCER; Cancer; Bile duct carcinoma; Diabetes - IDDM; Gout; High Cholesterol; aa5 Hypertension; - PSHx: 09:08 Liver Resection 2018; Port-a-cath; aa5 09:08 Paracentesis port 09/25/19; aa5 - Ebola Screening: : No symptoms or risks identified at this time. Screenin:13 Abuse screen: Denies threats or abuse. Nutritional screening: No deficits noted. em Tuberculosis screening: No symptoms or risk factors identified. Fall Risk No fall in past 12 months (0 pts). Secondary diagnosis (15 points) impaired mobility, Ambulatory Aid- None/Bed Rest/Nurse Assist (0 pts). Gait- Weak (10 pts.). Total Elizondo Fall Scale indicates Low Risk Score (25-44 pts). Side Rails Up X 2 Placed close to Nursing Station Family Present and informed to notify staff if they need to leave bedside. Assessment: 09:07 General: Appears in no apparent distress. comfortable, Behavior is calm, cooperative, em Reports fatigue for 1-2 days, Denies fever. Pain: Complains of pain in left lower quadrant and right lower quadrant Pain currently is 3 out of 10 on a pain scale. Neuro: Level of Consciousness is awake, alert, obeys commands, Oriented to person, place, time, situation, Appropriate for age Reports generalized weakness . Cardiovascular: Heart tones S1 S2 present Capillary refill < 3 seconds Patient's skin is warm and dry. Respiratory: Airway is patent Respiratory effort is even, unlabored, Respiratory pattern is regular, symmetrical. GI: Abdomen is round Bowel sounds present X 4 quads. Abd is rigid in right lower quadrant and left lower quadrant Reports lower abdominal pain, Patient currently denies nausea, vomiting. : Last void was September 26, 2019. Derm: Skin is intact, is healthy with good turgor, Skin is dry, Skin is jaundiced, Skin temperature is warm Redness noted to 1 year old liver resection incision, pt also reports mild pain to site. Musculoskeletal: Capillary refill < 3 seconds, Range of motion: intact in all extremities. 09:07 Reassessment: I agree with assessment completed by Robin Rivas LVN . aaChristie 09:53 Reassessment: Pt resting in bed with eyes closed, equal and unlabored respirations, pt aa5 notified of wait time for lab results. Pt's family at bedside. . 10:25 Reassessment: Patient appears in no apparent distress at this time. Patient and/or em family updated on plan of care and expected duration. Pain level reassessed. Patient is alert, oriented x 3, equal unlabored respirations, skin warm/dry/pink. rates pain 2/10 Patient states feeling better. Patient states symptoms have improved. 11:36 Reassessment: Patient appears in no apparent distress at this time. Patient and/or em family updated on plan of care and expected duration. Pain level reassessed. Patient is alert, oriented x 3, equal unlabored respirations, skin warm/dry/pink. 12:30 Reassessment: Patient appears in no apparent distress at this time. Patient and/or em family updated on plan of care and expected duration. Pain level reassessed. Patient is alert, oriented x 3, equal unlabored respirations, skin warm/dry/pink. 13:30 Reassessment: Patient appears in no apparent distress at this time. Patient and/or em family updated on plan of care and expected duration. Pain level reassessed. Patient is alert, oriented x 3, equal unlabored respirations, skin warm/dry/pink. 14:00 Reassessment: Dr. Mckinney at bedside. em 14:30 Reassessment: Patient appears in no apparent distress at this time. Patient and/or em family updated on plan of care and expected duration. Pain level reassessed. Patient is alert, oriented x 3, equal unlabored respirations, skin warm/dry/pink. 15:00 Reassessment: Dr. Mckinney at bedside discussing POC. em 15:25 Reassessment: [facility] hospice nurse at bedside discussing POC. em 15:50 Reassessment: reports nausea and dizziness, request for glucose to be checked, BGL 92. em 16:07 Reassessment: Dr. Mckinney and at bedside discussing POC. em 16:15 Reassessment: Reassessment: Spoke to Carmelita with [facility] to set up hospice care per aa5 Dr. Mckinney. Carmelita states pt has home health with them and they have his medical record but requesting ER visit medical record to be faxed at this time. Dr. Mckinney was notified and okayed to fax ER medical record to [facility] hospice. Chart was faxed to Carmelita with [facility]. . 16:56 Reassessment: pending EMS transportation to take pt back home. em Vital Signs: 09:08 BP 133 / 73; Pulse 103; Resp 18 S; Temp 97.7(O); Pulse Ox 97% on R/A; aa5 09:15 BP 133 / 73; Pulse 103; Resp 18; Temp 97.7(O); Pulse Ox 98% on R/A; Weight 70.31 kg; em Height 5 ft. 10 in. (177.80 cm); Pain 3/10; 10:19 BP 118 / 81; Pulse 100; Resp 18; Pulse Ox 98% on 2 lpm NC; Pain 2/10; em 12:14 BP 127 / 83; Pulse 100; Resp 18; Pulse Ox 99% on 2 lpm NC; Pain 2/10; em 13:30 BP 119 / 73; Pulse 102; Resp 18; Pulse Ox 99% on 2 lpm NC; Pain 2/10; em 14:25 BP 124 / 81; Pulse 101; Resp 18; Pulse Ox 99% on 2 lpm NC; em 15:30 BP 119 / 73; Pulse 103; Resp 16; Pulse Ox 99% on R/A; em 16:30 BP 131 / 89; Pulse 106; Resp 18; Pulse Ox 99% on R/A; Pain 2/10; em 17:30 BP 119 / 73; Pulse 103; Resp 17; Pulse Ox 99% on R/A; em 09:15 Body Mass Index 22.24 (70.31 kg, 177.80 cm) em ED Course: 09:07 Patient arrived in ED. aa5 09:07 Arm band placed on Patient placed in an exam room, on a stretcher. aa5 09:08 Robin Rivas LVN is Primary Nurse. em 09:12 Triage completed. aa5 09:13 Eliazar Sales MD is Attending Physician. [facility] 09:13 Patient has correct armband on for positive identification. Placed in gown. Bed in low em position. Call light in reach. Side rails up X2. Pulse ox on. NIBP on. 09:33 EKG done, by ergonomics technician. reviewed by Eliazar Sales MD. 3 09:41 Accessed Port-a-Cath. Blood collected. using accessed w/ # 20 Rogel needle, ,sterile aa5 technique, per hospital protocol. Clean \T\ dry. Good blood return. Flushes easily. 09:41 Initial lab(s) drawn, by me, sent to lab. aa5 09:44 Radiology exam delayed due to lab results not completed at this time. (BUN/Creatinine). 10:01 XRAY Chest (1 view) In Process Unspecified. EDMS 10:57 CT completed. Patient tolerated procedure well. Patient moved to CT via stretcher. Patient moved back from CT. 11:06 Abdomen In Process Unspecified. EDMS 12:[address] Little was called and message left to please call the ER by Dr. aidan Sales. 13:37 Az Mckinney DO is Hospitalizing Provider. [place] 17:30 No redness/swelling at site. Port-a-cath dc'd, packed with heparin 400 units per [facility] protocol. Band-aid applied to site. 17:37 No provider procedures requiring assistance completed. em Administered Medications: 09:43 Drug: NS 0.9% 500 ml Route: IV; Rate: bolus; Site: Port-a-cath; aa5 10:23 Follow up: IV Status: Completed infusion; IV Intake: 500ml aa5 09:43 Drug: Pepcid 20 mg Route: IVP; Site: Port-a-cath; aa5 10:27 Follow up: Response: No adverse reaction em 09:44 Drug: Zofran 4 mg Route: IVP; Site: Port-a-cath; aa5 10:28 Follow up: Response: No adverse reaction em 09:46 Drug: morphine 2 mg Route: IVP; Site: Port-a-cath; aa5 10:28 Follow up: Response: No adverse reaction; Pain is decreased; RASS: Alert and Calm (0) em 10:25 Drug: NS 0.9% 1000 ml Route: IV; Rate: 125 ml/hr; Site: Port-a-cath; aa5 17:25 Follow up: IV Status: Order to discontinue infusion; IV Intake: 200ml em 13:35 Drug: NS 0.9% 500 ml Route: IV; Rate: bolus; Site: Port-a-cath; aa5 15:07 Follow up: IV Status: Completed infusion; IV Intake: 500ml em 16:17 Drug: Zofran 2 mg Route: IVP; Site: Port-a-cath; aa5 16:40 Follow up: Response: No adverse reaction; Nausea is decreased em 16:52 Drug: traMADol 50 mg Route: PO; em 17:59 Follow up: Response: No adverse reaction; Pain is decreased em Intake: 10:23 IV: 500ml; Total: 500ml. aa5 15:07 IV: 500ml; Total: 1000ml. em 17:25 IV: 200ml; Total: 1200ml. em Outcome: 12:51 ER care complete, transfer ordered by MD. celso 13:39 Decision to Hospitalize by Provider. [place] 14:00 Admitted to Med/surg aa5 14:00 Condition: stable aa5 14:00 Discharge instructions given to patient, family, Instructed on the need for admit, Demonstrated understanding of instructions. 16:00 Condition: Order to d/c pt home on hospice ([facility] hospice) per received (see aa5 [facility] for discharge) 18:52 Condition: D/c'd home via [facility], report given to [facility]. aa5 19:00 Patient left the ED. em Signatures: Dispatcher [employer] EDEliazar Valdez MD MD cha Munoz, Edgar, MANAGED SERVICES CONSULTANT MANAGED SERVICES CONSULTANT em Shanta Benoit, HENOK RN aa5 Cristina Portillo, Samira Sanchez3 Corrections: (The following items were deleted from the chart) 09:13 09:07 Presenting complaint: EMS states: Pt has history of bile duct cancer with last aa5 chemo tx on Aug.11. C/O generalized weakness that began yesterday and got worse today. Pt had port for amniocentesis placed yesterday at [facility]. Pt c/o pain to incision site from liver resection completed approximately 1 year ago, redness noted to site. Pt reports nausea, denies vomiting, reports not eating for the last 2 days. Last BM was 09/24/19 and last void was today. aa5 09:14 09:08 PSHx: Amniocentesis port 09/25/19; aa5 aa5 09:15 09:07 Presenting complaint: EMS states: Pt has history of bile duct cancer with last aa5 chemo tx on Aug.11. C/O generalized weakness that began yesterday and got worse today. Pt had port for paracentesis placed yesterday at [facility]. Pt c/o pain to incision site from liver resection completed approximately 1 year ago, redness noted to site. Pt reports nausea, denies vomiting, reports not eating for the last 2 days. Last BM was 09/24/19 and last void was today. aa5 09:53 09:07 Derm: Skin is intact, is healthy with good turgor, Skin is pink, warm \T\ dry. em aa5 09:55 09:07 GI: Abdomen is flat, Bowel sounds present X 4 quads. Abd is rigid in right lower aa5 quadrant and left lower quadrant Reports lower abdominal pain, Patient currently denies nausea, vomiting, em 09:55 09:07 Derm: Skin is intact, is healthy with good turgor, Skin is dry, Skin is aa5 jaundiced, Skin temperature is warm aa5 15:40 10:19 BP 118 / 81; Pulse 100bpm; Resp 18bpm; Pulse Ox 98% RA; Pain 2/10; em em 15:40 12:14 BP 127 / 83; Pulse 100bpm; Resp 18bpm; Pulse Ox 99% RA; Pain 2/10; em em 15:40 14:25 BP 124 / 81; Pulse 101bpm; Resp 18bpm; Pulse Ox 99% RA; em em 15:40 13:30 BP 119 / 73; Pulse 102bpm; Resp 18bpm; Pulse Ox 99% RA; Pain 2/10; em em
[2019-09-26] MEDS ORDERED: NA CHLORIDE 0.9% 1,000 ML ONE (16:05)
[2019-09-26] MEDS ORDERED: HEPARIN 500 UNIT/5 ML SYR IV ONE (16:49)
[2019-09-26] MEDS ORDERED: TRAMADOL HCL 50 MG TAB ONE (16:53)
--- NOTE | 2019-09-26 18:08 | P.PN ---
Date of Service: 09/26/19 Patient was evaluated in the emergency room for possible admission. Patient with known history of end-stage biliary carcinoma. Patient recently at [facility] [place] [place] for treatment. Patient examined, lab reviewed. Case discussed with his oncologist. Patient has end-stage biliary cancer. No further treatment is recommended at this time. Oncologist is recommending hospice which had been addressed at [facility] [place] [place] early this week. Case reviewed with patient and . They understand his condition is worsening. No further treatment is recommended. They understand oncologist is recommending hospice. Advanced directives address in detail with patient and . Patient understands his current condition. He understands that his in stage biliary cancer is terminal. He understands that his oncologist is recommending hospice. At this time patient has agreed to hospice as an outpatient. Advanced directives address in detail with patient, present and caregiver present. Patient wishes to be do not resuscitate. Patient discharged home to outpatient hospice.
[2019-09-26 21:47] VITALS: TEMP 97.7
[2019-09-26 21:51] VITALS: O2SAT 99
[2019-09-26 21:57] VITALS: BP 119/73
--- NOTE | 2019-09-28 12:51 | EKG ---
Test Date: 2019-09-26 Test Time: 09:30:10 Electric Relay Tester: NAVYA MEASUREMENT RESULTS: Intervals: Rate: 105 GA: 184 QRSD: 68 QT: 302 QTc: 399 [place]: P: GA: 184 QRS: 45 T: 264 INTERPRETIVE STATEMENTS: Sinus tachycardia Low voltage QRS Nonspecific ST and T wave abnormality Abnormal ECG Compared to ECG 08/30/2019 00:21:37 Low QRS voltage now present ST (T wave) deviation now present Accelerated junctional rhythm no longer present T-wave abnormality no longer present Electronically Signed On 09-28-19 12:45:53 REIKI PRACTITIONER by Stephen Kumar
== END 2019-09-26 18:59 | disposition home or self-care (01) ==
LOC: ER 09:02 → UNDOADMIN 13:39 → ERHOLD 13:39 → ER 18:59
DX: C22.1 Intrahepatic bile duct carcinoma (principal); E86.0 Dehydration; R63.0 Anorexia; D64.9 Anemia, unspecified; R10.819 Abdominal tenderness, unspecified site; E11.9 Type 2 diabetes mellitus without complications
CPT/HCPCS: 36415; 71045; 74176; 80048; 80076; 82140; 82947; 83690; 83735; 83880; 84484; 85025; 85610; 86850; 86900; 86901; 93005; 96361; 96374; 96375; 99285; J1642; J2270; J2405; J7030